=== PATIENT | male | born 1955 | race Caucasian/White ===

== ENCOUNTER 2020-08-04 10:08 | Inpatient (IN) | payer MEDICARE, SELFPAY ==
[2020-08-04] VITALS (9 sets, daily range): BP systolic 130–164; BP diastolic 75–116; PULSE 75–112; RESP 16–20; TEMP 36.4–37.7; O2SAT 91–97; BMI 60.8
--- NOTE | 2020-08-04 10:47 | XR_ITS ---
WS: [id number] XR shoulder RT min 2V* [id number] REASON FOR EXAM: pain FINDINGS: Mild joint space narrowing and marginal spurring of the acromioclavicular joint. Significant narrowing of the glenohumeral joint with humeral head osteophytes. No fracture or other focal osseous abnormality. No loose bodies or other soft tissue abnormality. XR/XR shoulder RT min 2V* [id number] IMPRESSION: Osteoarthritis in the right shoulder joint as above.
[2020-08-04] MEDS: morphine 4 mg/mL SDV 1 mL 8 MG IVP (11:23)
[2020-08-04 12:17] LABS: Alanine Aminotransferase 24 U/L (0-41); Albumin Level 3.4 g/dL (3.5-5.2); Alkaline Phosphatase 123 IU/L (40-130); Anion Gap 15.1 (5-19); Aspartate Amino Transferase 15 U/L (0-40); Blood Urea Nitrogen 20 mg/dL (8-23); Calcium 9.4 mg/dL (8.5-10.5); Carbon Dioxide 26 mmol/L (22-29); Chloride 99 mmol/L (98-107); Globulin 3.7 g/dL (1.3-4.6); Glomerular Filtration Rate 96.7 mL/min (90-130); Glucose 126 mg/dL (65-115); Osmolality Calculated 286 mOsm/kg (285-295); Potassium 4.1 mmol/L (3.5-5.1); Sodium 136 mmol/L (136-145); Total Bilirubin 0.6 mg/dL (0.15-1.2); Total Protein 7.1 g/dL (6.6-8.7)
--- NOTE | 2020-08-04 12:31 | ED_ITS ---
HPI - General Adult General: Chief complaint: General Medical Stated complaint: swelling and pain in arms and legs Time Seen by Provider: 08/04/20 10:31 History of Present Illness: HPI narrative: Patient is a 65-year-old male from home accompanied by seen for multiple complaints. Primary complaint is worsening pain in the right shoulder. He has a history of osteoarthritis of the right shoulder, but also complains of worsening pain with any motion over the last 3 days without injury, fall, or other acute incident. He states that he was started on medicine for gout roughly 1 month ago. The trouble is that he is dependent on using crutches and now that his shoulder is hurting so much, he is unable to use crutches, thus he is immobile at home. Prior to EMS arrival, he was unable to get out of the bed. He required multiple EMS providers to help him from his bed to the stretcher. He denies fever, trauma to the area, other recent illness. He also complains of bilateral hand swelling and difficulty picking things up bilaterally. Review of Systems General: Reports: 10 or more systems reviewed and unremarkable except in HPI and below PFSH ED PFSH: Medical History (Updated 08/04/20 @ 15:10 by Tremaine Ferrari MD) Arthritis Bilateral primary osteoarthritis of hip Diastolic CHF Gout HLD (hyperlipidemia) Hypertension Surgical History (Updated 08/04/20 @ 15:08 by Tremaine Ferrari MD) H/O vein stripping H/O ventral hernia repair Family History (Updated 08/04/20 @ 15:09 by Tremaine Ferrari MD) Father CAD (coronary artery disease) Mother Aspiration pneumonia Social History (Updated 07/28/20 @ 10:07 by Nicholas Jaimes LPN) Smoking and tobacco status: never smoked Alcohol intake: never Current occupational status: retired Physical Exam Const: COMMON NORMALS: no acute distress, patient oriented x3 and alert HENMT: COMMON NORMALS: normocephalic and atraumatic HEAD & SCALP: normocephalic and atraumatic Eye: COMMON NORMALS: Equal, round and reactive pupils present, EOMs intact bilaterally and no scleral icterus PUPIL: Yes Equal, round and reactive pupils present Resp: COMMON NORMALS: normal respiratory effort and No retractions Cardio: COMMON NORMALS: regular rhythm and No murmurs present (Cardio) RATE: tachycardic RHYTHM: regular rhythm GI: COMMON NORMALS: Normal to inspection, nondistended, normoactive bowel sounds present, Soft to palpation and non-tender INSPECTION: Yes central obesity PALPATION: Yes Soft to palpation Extremity: COMMON NORMALS: negative for full ROM NARRATIVE EXTREMITY EXAM: Patient has exquisite pain with active or passive flexion or abduction of the right shoulder. He can only abduct roughly 10 degrees before he has an increase in pain. He can only flex forward roughly 15 degrees before he has exquisite pain which he locates to the anterior shoulder concerning for rotator cuff sprain or partial tear. There is no laxity of the joint. He has bilateral hip pain with flexion which she states is chronic and unchanged. Neuro: COMMON NORMALS: patient oriented x3 SENSORIUM/ORIENTATION: Yes alert Skin: COMMON NORMALS: no rashes or lesions noted GENERAL SKIN EXAM: no rashes or lesions noted Course Vital Signs: Vital signs: Vital Signs Temperature 98.0 F 08/04/20 10:10 Pulse Rate 112 H 08/04/20 14:36 Respiratory Rate 20 H 08/04/20 10:10 Blood Pressure 157/85 08/04/20 14:36 Pulse Oximetry 93 08/04/20 14:36 MDM - General Adult MDM Narrative: Medical decision making narrative: Patient remained hemodynamically stable throughout ED course. Pain is well controlled with 2 doses of morphine. X-ray of the shoulder shows no acute process. I suspect he has chronic pain secondary to osteoarthritis with the addition of acute rotator cuff injury pain of the right shoulder. He was evaluated by OT who found him to require max assistance with all ADLs. His is wheelchair-bound and a hospice patient herself, thus I do not believe she would be able to care for the patient and his current status. I believe he would benefit from therapy and learning to use a walker rather than crutches. If his pain can be controlled, I believe he will be able to regain his independence with therapy. He will be admitted observation status to the hospitalist service while arrangements are made for the next up of his care. Lab Data: Labs: Lab Results 08/04/20 08/04/20 Range/Units 11:41 11:41 WBC 15.3 H (4.0-10.0) 10^3/ uL RBC 4.25 (4.1-5.3) 10^6/u L Hgb 11.9 (11.7-16.6) g/dL Hct 39.3 L (42.0-52.0) % MCV 92.5 (80-94) fL MCH 28.0 (28.0-34.0) pg MCHC 30.3 (30.0-36.0) g/dL RDW 14.3 (12.1-15.1) % Plt Count 405 H (130-400) 10^3/c mm MPV 11.0 H (7.4-10.4) fL Neut % (Auto) 82.3 % Lymph % (Auto) 7.1 % [place] % (Auto) 8.8 % Eos % (Auto) 0.7 % Baso % (Auto) 0.4 % Neut # (Auto) 12.58 H (1.8-7.7) 10^3/u L Lymph # (Auto) 1.1 (0.8-4.8) 10^3/u L [place] # (Auto) 1.3 H (0.2-0.9) 10^3/u L Eos # (Auto) 0.1 (0.0-0.8) 10^3/u L Baso # (Auto) 0.1 (0.0-0.1) 10^3/u L Nucleated RBC % (a uto) 0 % Nucleated RBCs # 0.0 /100WBC Sodium 136 (136-145) mmol/L Potassium 4.1 (3.5-5.1) mmol/L Chloride 99 (98-107) mmol/L Carbon Dioxide 26 (22-29) mmol/L Anion Gap 15.1 (5-19) BUN 20 (8-23) mg/dL Creatinine 0.8 (0.7-1.2) mg/dL GFR Calculation 96.7 (90-130) mL/min Glucose 126 H (65-115) mg/dL Calculated Osmolal ity 286 (285-295) mOsm/k g Calcium 9.4 (8.5-10.5) mg/dL Total Bilirubin 0.6 (0.15-1.2) mg/dL AST 15 (0-40) U/L ALT 24 (0-41) U/L Alkaline Phosphata se 123 (40-130) IU/L Total Protein 7.1 (6.6-8.7) g/dL Albumin 3.4 L (3.5-5.2) g/dL Globulin 3.7 (1.3-4.6) g/dL Discharge Plan Discharge Clinical Impression: Unable to ambulate, Intractable pain, Morbid obesity with BMI of 60.0-69.9, adult Condition: Stable Prescriptions: No Action simvastatin [Zocor] 10 mg tablet 10 mg PO DAILY@20 RF: 0 furosemide [Lasix] 40 mg tablet 40 mg PO DAILY@13 RF: 0 naproxen 500 mg tablet 500 mg PO BID@08,20 RF: 0 amlodipine 5 mg tablet 5 mg PO DAILY@08 RF: 0 hydrocodone-acetaminophen [Dinosaur] 5-325 mg tablet 1 tab PO Q6H PRN (Reason: Pain) RF: 0 cyclobenzaprine 10 mg tablet 10 mg PO DAILY@08 RF: 0 lisinopril-hydrochlorothiazide 20-12.5 mg Tablet 2 tab PO DAILY@08 RF: 0 potassium chloride 10 mEq Tablet Extended Release 10 meq PO DAILY@20 RF: 0 allopurinol 100 mg Tablet 200 mg PO DAILY@20 RF: 0 Coding Level of Care Code ED Mapping Specialist for Corrie Ordonez
[2020-08-04 12:35] LABS: Basophils # 0.1 10^3/uL (0.0-0.1); Basophils % 0.4 %; Eosinophils # 0.1 10^3/uL (0.0-0.8); Eosinophils % 0.7 %; Hematocrit 39.3 % (42.0-52.0); Hemoglobin 11.9 g/dL (11.7-16.6); Lymphocytes # 1.1 10^3/uL (0.8-4.8); Lymphocytes % 7.1 %; Mean Corpuscular HGB Conc 30.3 g/dL (30.0-36.0); Mean Corpuscular Volume 92.5 fL (80-94); Monocytes # 1.3 10^3/uL (0.2-0.9); Monocytes % 8.8 %; Neutrophils # 12.58 10^3/uL (1.8-7.7); Neutrophils % 82.3 %; Nucleated Red Blood Cells % 0 %; Platelet Count 405 10^3/cmm (130-400); Red Blood Count 4.25 10^6/uL (4.1-5.3); Red Cell Distribution Width 14.3 % (12.1-15.1); White Blood Count 15.3 10^3/uL (4.0-10.0)
[2020-08-04] MEDS: morphine 4 mg/mL SDV 1 mL IM (14:56)
--- NOTE | 2020-08-04 15:00 | PC.SOCIAL ---
Discussed at length with patient that his weight is a big concern regarding placement. If P is unwilling to accept then we will need to look at [facility]. He was updated this is only short term option since he does not have [facility]. He verbalized understanding. We discussed the ultimate goal for him is to lose weight. He was advised to eat 5 meals per day smaller portions and eliminate all sweets that are simple carbs and sugars. indicates we barely eat enough to keep us alive , this nurse responded that is not the case and more than likely we don't realize we are eating much bigger portions than required to fuel our body. Patient agreed that intake is an issue. He will need a job interviewer consult for weight loss management. This nurse advised to have a consult with Dr Koch about bariatric procedure in the future if he can follow healthier intake goals to start the weight loss and ensure he can be compliant with restrictions required for this type of surgery. Daina has sent referral to [facility]. We will follow up. Patient is aware if unable to find placment may be able to do HH but this is only a few times a week and not 24 hour care. HE understands and up until a few days ago he was able to get around with crutches until shoulder was injured. Likely he will need a Walker. He has some hip pain in which he is getting injections. Dr Ferrari and Dr Rosas the ED provider updated on care plan.
--- NOTE | 2020-08-04 15:01 | P.HP_ITS ---
Providers/Chief Complaint Chief Complaint: swelling and pain in arms and legs History of Present Illness Ceferino Duran is a 65 year old male with a past medical history of diastolic CHF, bilateral lower extremity edema, hypertension, hyperlipidemia, gout, morbid obesity, chronic venous insufficiency, bilateral hip osteoarthritis, who presents to [facility] due to complaints of difficulty ambulating, bilateral lower extremity edema, weakness, left shoulder pain. Patient tells me that normally on a good day, he is able to ambulate with crutches, he gets into his wheelchair, this is his main method of ambulation, he is weight 400 pounds for the last 2 to 3 years. Tells me that recently he has been developing increased weakness, bilateral lower extremity swelling, edema. He also tells me that he has significant left shoulder pain, normally ambulates with a crutch, now he cannot do that because of shoulder pain, he cannot stand up on his own, typically uses the crutches, has bilateral hip osteoarthritis, they are considering replacement, he gets injections as outpatient. Review of Systems Const: Denies: fever(s), chills, fatigue or malaise Eyes: Denies: change in vision or blurry vision ENMT: Denies: nasal congestion Card: Denies: chest pain or palpitations Resp: Denies: dyspnea, productive cough, non-productive cough or wheezing GI: Denies: abdominal pain, nausea, vomiting, hematemesis, diarrhea, constipation, hematochezia or melena : Denies: flank pain, difficulty urinating, dysuria or urinary frequency Musc: Reports: back pain and extremity swelling; Denies: neck pain Skin/Breast: Denies: rash Neuro: Denies: headache(s), dizziness or vertigo Psych: Denies: anxiety or depression Endo: Denies: polyuria or polydipsia Medications/Allergies Home Medications Medication Instructions Recorded Confirmed Last Taken Type amlodipine 5 mg tablet 5 mg PO DAILY@08 07/28/20 08/04/20 08/04/20 History cyclobenzaprine 10 mg tablet 10 mg PO DAILY@08 tab 07/28/20 08/04/20 08/04/20 History furosemide 40 mg tablet 40 mg PO DAILY@13 07/28/20 08/04/20 08/04/20 History hydrocodone 5 mg-acetaminophen 325 1 tab PO Q6H PRN 07/28/20 08/04/20 08/04/20 History mg tablet naproxen 500 mg tablet 500 mg PO BID@08,07/28/20 08/04/20 08/04/20 History simvastatin 10 mg tablet 10 mg PO DAILY@07/28/20 08/04/20 08/03/20 History allopurinol 200 mg PO DAILY@08/04/20 08/04/20 08/03/20 History lisinopril-hydrochlorothiazide 2 tab PO DAILY@08/04/20 08/04/20 08/04/20 History potassium chloride 10 meq PO DAILY@08/04/20 08/04/20 08/03/20 History Allergies Allergy/AdvReac Type Severity Reaction Status Date / Time cephalexin [From Keflex] Allergy Unknown Verified 08/04/20 10:15 paper tapre Allergy Unknown Uncoded 08/04/20 10:15 PFSH Acute PFSH: Medical History (Updated 08/04/20 @ 15:10 by Tremaine Ferrari MD) Arthritis Bilateral primary osteoarthritis of hip Diastolic CHF Gout HLD (hyperlipidemia) Hypertension Surgical History (Updated 08/04/20 @ 15:08 by Tremaine Ferrari MD) H/O vein stripping H/O ventral hernia repair Family History (Updated 08/04/20 @ 15:09 by Tremaine Ferrari MD) Father CAD (coronary artery disease) Mother Aspiration pneumonia Social History (Updated 07/28/20 @ 10:07 by Nicholas Jaimes LPN) Smoking and tobacco status: never smoked Alcohol intake: never Current occupational status: retired Vitals/I&O/Wt Last Vital Signs Temp 98.0 F 08/04/20 10:10 Pulse 112 H 08/04/20 14:36 Resp 20 H 08/04/20 10:10 BP 157/85 08/04/20 14:36 Pulse Ox 93 08/04/20 14:36 Weight last 48 hrs Weight 181.437 kg Physical Exam Narrative: EXAM NARRATIVE: Morbidly obese male Large pannus Const: COMMON NORMALS: no acute distress HENMT: COMMON NORMALS: normocephalic HEAD & SCALP: normocephalic Eye: COMMON NORMALS: Equal, round and reactive pupils present and EOMs intact bilaterally GENERAL EYE: appearance normal, both eyes and all related structures PUPIL: Yes Equal, round and reactive pupils present Neck/C-Spine: COMMON NORMALS: full ROM, no lymphadenopathy, no JVD and Thyroid normal THYROID: Thyroid normal Lymph: LYMPHATIC: no lymphadenopathy noted Resp: COMMON NORMALS: normal respiratory effort, No retractions, No use of accessory muscles and clear to auscultation bilaterally AUSCULTATION: clear to auscultation bilaterally Cardio: COMMON NORMALS: no JVD, regular rate, regular rhythm, S1 normal heart sound present, S2 normal heart sound present, No gallops present (Cardio), No clicks present (Cardio) and No murmurs present (Cardio) RATE: regular rate RHYTHM: regular rhythm HEART SOUNDS: S1 normal heart sound present and S2 normal heart sound present GI: COMMON NORMALS: Normal to inspection, nondistended, normoactive bowel sounds present, Soft to palpation, non-tender and No hepatosplenomegaly present PALPATION: Yes Soft to palpation and Yes No hepatosplenomegaly present Back/Pelvis: OTHER: Bilateral hips, pain with range of motion Extremity: COMMON NORMALS: normal to inspection and full ROM NARRATIVE EX TREMITY EXAM: 1+ pitting edema bilaterally Right shoulder, pain with range of motion, Neuro: COMMON NORMALS: patient oriented x3, CN's II-XII intact bilaterally, moves all extremities and no focal motor deficits Psych: COMMON NORMALS: mental status grossly normal, Normal thought process present and cooperative THOUGHT PROCESS: Normal thought process present Data : 08/04/20 11:41 08/04/20 11:41 A&P Assessment and plan (1) Hypertension: -Increase Norvasc to 10 mg daily -Continue lisinopril hydrochlorthiazide combination Status: Inactive (2) Diastolic CHF: -We will order BMP, cardiac echo -Increase Lasix to 40 twice daily Status: Acute (3) Gout: Continue allopurinol Status: Acute (4) Bilateral lower extremity edema: Lasix 40 twice daily Status: Acute (5) Morbid obesity with BMI of 60.0-69.9, adult: Needs to follow-up with bariatric clinic, needs to be motivated to lose weight Status: Acute (6) Difficulty in walking: PT OT Status: Acute (7) Bilateral primary osteoarthritis of hip: PT OT, pain control Status: Acute (8) HLD (hyperlipidemia): Continue simvastatin Status: Acute (9) Unable to ambulate: PT OT Status: Acute (10) Intractable pain: Status: Acute Attestations Medical Necessity Statement*: Patient requires hospitalization, outpatient with observation, for bilateral lower extremity edema secondary to diastolic CHF, unable to ambulate, intractable pain, right shoulder pain Coding Level of Care Code Acute Assembler Watch Train for Chg Fwd Diagnoses Hypertension I10 Diastolic CHF I50.30 Gout M10.9 Bilateral lower extremity edema R60.0 Morbid obesity with BMI of 60.0-69.9, adult E66.01; Z68.44 Difficulty in walking R26.2 Bilateral primary osteoarthritis of hip M16.0 HLD (hyperlipidemia) E78.5 Unable to ambulate R26.2 Intractable pain R52
--- NOTE | 2020-08-04 15:53 | DCPLANNER ---
Addendum entered by Daina Kulkarni 08/04/20 15:56: manager country had patient sign Patient Choice letter for which home health company that patient would like to use. Then for alf placement, patients first choice is [facility], second choice is [facility]. Patient will go to whichever facility will accept patient. Original Note: manager country was asked to work on alf placement for patient. Rebeca from the inpatient side of care coordination called [facility], at first that facility stated that they would consider patient. [facility] called Rebeca back and stated that they would not be able to accept patient at this time. Case manage called [facility], and was asked to fax records to the facility and patients information would be reviewed. manager country updated patient that [facility] stated that they would not be able to take patient, but information would be faxed to [facility] for review. Patient stated that would be ok.
--- NOTE | 2020-08-04 16:58 | PC.SOCIAL ---
Discussed customer support agent consult in front of provider in room.Verified by secure text message okay to enter order.
[2020-08-04 17:06] LABS: NT Pro B Type Natriuretic Pept 129 pg/mL (0-125)
[2020-08-04] MEDS: famotidine 20 mg Tablet PO (17:32)
[2020-08-04] MEDS: FUROsemide 40 mg Tablet PO (17:32)
[2020-08-04] MEDS: enoxaparin 40 mg/0.4 mL Syringe SUBCUT (17:33)
[2020-08-04] MEDS: potassium chloride ER 10 mEq Tablet PO (21:19)
[2020-08-04] MEDS: atorvastatin 40 mg Tablet 20 MG PO (21:19)
[2020-08-04] MEDS: allopurinol 100 mg Tablet 200 MG PO (21:19)
[2020-08-05] VITALS (8 sets, daily range): BP systolic 129–155; BP diastolic 70–84; PULSE 80–102; RESP 16–22; TEMP 36.8–37.7; O2SAT 93–96
[2020-08-05] MEDS: FUROsemide 40 mg Tablet PO ×2 (05:17→17:55)
[2020-08-05 05:42] LABS: Basophils # 0.1 10^3/uL (0.0-0.1); Basophils % 0.5 %; Eosinophils # 0.1 10^3/uL (0.0-0.8); Eosinophils % 0.6 %; Hematocrit 34.2 % (42.0-52.0); Hemoglobin 10.7 g/dL (11.7-16.6); Lymphocytes # 1.1 10^3/uL (0.8-4.8); Lymphocytes % 8.1 %; Mean Corpuscular HGB Conc 31.3 g/dL (30.0-36.0); Mean Corpuscular Hemoglobin 28.3 pg (28.0-34.0); Mean Corpuscular Volume 90.5 fL (80-94); Mean Platelet Volume 10.8 fL (7.4-10.4); Monocytes # 1.3 10^3/uL (0.2-0.9); Monocytes % 9.5 %; Neutrophils # 10.58 10^3/uL (1.8-7.7); Neutrophils % 80.4 %; Nucleated Red Blood Cells % 0 %; Platelet Count 365 10^3/cmm (130-400); Red Blood Count 3.78 10^6/uL (4.1-5.3); Red Cell Distribution Width 14.2 % (12.1-15.1); White Blood Count 13.2 10^3/uL (4.0-10.0)
[2020-08-05 06:08] LABS: Cholesterol 126 mg/dL (0-200); HDL Cholesterol 42 mg/dL (60-100); LDL Cholesterol Calculated 71 mg/dL (50-129); LDL HDL Ratio 1.69 RATIO (0.00-3.22); Triglycerides 63 mg/dL (0-150)
[2020-08-05 06:19] LABS: Alanine Aminotransferase 22 U/L (0-41); Alkaline Phosphatase 137 IU/L (40-130); Anion Gap 15.6 (5-19); Aspartate Amino Transferase 18 U/L (0-40); Blood Urea Nitrogen 22 mg/dL (8-23); Calcium 9.2 mg/dL (8.5-10.5); Carbon Dioxide 27 mmol/L (22-29); Chloride 99 mmol/L (98-107); Globulin 2.7 g/dL (1.3-4.6); Glomerular Filtration Rate 74.8 mL/min (90-130); Glucose 131 mg/dL (65-115); Magnesium 2.3 mg/dL (1.7-2.3); Osmolality Calculated 289 mOsm/kg (285-295); Phosphorus 4.3 mg/dL (2.5-4.5); Potassium 4.6 mmol/L (3.5-5.1); Sodium 137 mmol/L (136-145); Thyroid Stimulating Hormone 1.76 uIU/mL (0.27-4.20); Total Bilirubin 1.2 mg/dL (0.15-1.2); Total Protein 5.7 g/dL (6.6-8.7)
[2020-08-05] MEDS: HYDROcodone-acetaminophen 5-325 mg Tablet 1 TAB PO ×2 (08:54→15:08)
[2020-08-05] MEDS: cyclobenzaprine 10 mg Tablet PO (08:55)
[2020-08-05] MEDS: famotidine 20 mg Tablet PO ×2 (08:55→17:55)
[2020-08-05] MEDS: hydroCHLOROthiazide 25 mg Tablet PO (08:55)
[2020-08-05] MEDS: lisinopril 20 mg Tablet 40 MG PO (08:55)
[2020-08-05] MEDS: amlodipine 5 mg Tablet 10 MG PO (08:55)
--- NOTE | 2020-08-05 08:56 | DCPLANNER ---
data warehousing manager called [facility] to confirm that facility received patients information - case sealer spoke with Nicky, was told that patients information was received.
[2020-08-05 09:26] LABS: SARS Covid-2 Antigen Negative (Negative)
--- NOTE | 2020-08-05 09:48 | PC.CHAP ---
Pastoral Care Encounter/Spiritual Assessment Type of Contact [] Declined dry boss visit [] Patient/Family/Request visit [] Outpatient visit [] Follow-up visit [] Physician referral [] Code/Alert [] Routine visit [] Staff referral [] Actively dying [] Patient sleeping [] Family support [] [] Out of room [] Palliative care [] [x] Receiving care in room [] Pre-surgical visit [] Trauma [] Long length of stay [] ICU visit [] Other: Relational/Emotional Strength [] Patient feels connected with others/family/visitors/staff [] Distress [] Loneliness/isolation [] Abandonment Spirituality of Patient [] Person of Minal [] Attends Restorationism of their Minal [] Believes in Prayer [] Reads Bible or Methodist materials [] There are Spiritual issues to be addressed Fleet Dispatch Manager Interventions [] Prayer [] Active listening [] Non-anxious presence [] Spiritual/emotional support [] Crisis/trauma care [] Spiritual counseling [] Bereavement support [] Provided bereavement packet [] Provided Bible/devotional materials [] Provided toy/stuffed animal, coloring book to patient or family member [] Provided Communion [] Anointing/[place] [] Salvation [] Completed spiritual assessment [] Other: Impact on Illness or Injury [] Angry [] Fearful [] Anxious [] Often cries [] Exhaustion [] Unable to work [] Unable to attend caodaism [] Unable to walk/stand [] Unable to read [] Unable to drive [] Unable to eat/drink [] Unable to sleep [] Unable to be with family [] Patient intubated [] Other: Summary Time spent with patient
--- NOTE | 2020-08-05 09:48 | PC.CHAP ---
Pastoral Care Encounter/Spiritual Assessment Type of Contact [] Declined belt maker visit [] Patient/Family/Request visit [] Outpatient visit [] Follow-up visit [] Physician referral [] Code/Alert [] Routine visit [] Staff referral [] Actively dying [] Patient sleeping [] Family support [] [] Out of room [] Palliative care [] [x] Receiving care in room [] Pre-surgical visit [] Trauma [] Long length of stay [] ICU visit [] Other: Relational/Emotional Strength [] Patient feels connected with others/family/visitors/staff [] Distress [] Loneliness/isolation [] Abandonment Spirituality of Patient [] Person of Minal [] Attends Restorationism of their Minal [] Believes in Prayer [] Reads Bible or Congregational materials [] There are Spiritual issues to be addressed Residential Treatment Counselor Interventions [] Prayer [] Active listening [] Non-anxious presence [] Spiritual/emotional support [] Crisis/trauma care [] Spiritual counseling [] Bereavement support [] Provided bereavement packet [] Provided Bible/devotional materials [] Provided toy/stuffed animal, coloring book to patient or family member [] Provided Communion [] Anointing/[place] [] Salvation [] Completed spiritual assessment [] Other: Impact on Illness or Injury [] Angry [] Fearful [] Anxious [] Often cries [] Exhaustion [] Unable to work [] Unable to attend advent [] Unable to walk/stand [] Unable to read [] Unable to drive [] Unable to eat/drink [] Unable to sleep [] Unable to be with family [] Patient intubated [] Other: Summary Time spent with patient
--- NOTE | 2020-08-05 11:55 | P.PN_ITS ---
Subjective Subjective: Interval history: This morning patient was examined, he tells me that his swelling of his legs have improved, he is feeling a bit better, no fevers, chills, no chest pain Vitals/I&O/Wt Last Vital Signs Temp 98.6 F 08/05/20 08:00 Pulse 96 08/05/20 08:00 Resp 18 08/05/20 08:00 BP 143/80 08/05/20 08:00 Pulse Ox 94 08/05/20 08:00 08/04/20 08/05/20 08/05/20 22:59 06:59 14:59 Intake Total 120 / 120 Output Total 100 / 100 800 / 900 600 / 600 Balance -100 / -100 -800 / -900 -480 / -480 Weight last 48 hrs Weight 181.437 kg Physical Exam Narrative: EXAM NARRATIVE: Morbidly obese male Large pannus Const: COMMON NORMALS: no acute distress and patient oriented x3 HENMT: COMMON NORMALS: normocephalic HEAD & SCALP: normocephalic Neck/C-Spine: COMMON NORMALS: no JVD Resp: COMMON NORMALS: normal respiratory effort, No retractions, No use of accessory muscles and clear to auscultation bilaterally AUSCULTATION: clear to auscultation bilaterally Cardio: COMMON NORMALS: no JVD, regular rate, regular rhythm, S1 normal heart sound present and S2 normal heart sound present RATE: regular rate RHYTHM: regular rhythm HEART SOUNDS: S1 normal heart sound present and S2 normal heart sound present GI: COMMON NORMALS: Normal to inspection, nondistended, normoactive bowel sounds present, Soft to palpation, non-tender, No hepatosplenomegaly present, no masses and no bruits PALPATION: Yes Soft to palpation and Yes No hepatosplenomegaly present Extremity: COMMON NORMALS: capillary refill normal, no clubbing, cyanosis or edema and no calf tenderness NARRATIVE EXTREMITY EXAM: Minimal pitting edema Neuro: COMMON NORMALS: patient oriented x3 Psych: COMMON NORMALS: mental status grossly normal Data : 08/05/20 04:50 08/05/20 04:50 A&P Assessment and plan (1) Hypertension: -Increase Norvasc to 10 mg daily -Continue lisinopril hydrochlorthiazide combination Status: Inactive (2) Diastolic CHF: -Cardiac echo pending -Increase Lasix to 40 twice daily Status: Acute (3) Gout: Continue allopurinol Status: Acute (4) Bilateral lower extremity edema: Lasix 40 twice daily Status: Acute (5) Morbid obesity with BMI of 60.0-69.9, adult: Needs to follow-up with bariatric clinic, needs to be motivated to lose weight Status: Acute (6) Difficulty in walking: PT OT Status: Acute (7) Bilateral primary osteoarthritis of hip: PT OT, pain control Status: Acute (8) HLD (hyperlipidemia): Continue simvastatin Status: Acute (9) Unable to ambulate: PT OT Status: Acute (10) Intractable pain: Status: Acute Additional A&P Information Plan for today, continue diuresis, monitor blood pressures, monitor urine output, encourage ambulation Attestations 2 Medical Necessity Statement*: Patient requires hospitalization for bilateral lower extremity edema, pain with range of motion of bilateral hips, right shoulder pain, intractable pain, requiring detention placement Coding Level of Care Code Acute Glass Vial Bending Conveyor Feeder for Corrie Fwd Diagnoses Hypertension I10 Diastolic CHF I50.30 Gout M10.9 Bilateral lower extremity edema R60.0 Morbid obesity with BMI of 60.0-69.9, adult E66.01; Z68.44 Difficulty in walking R26.2 Bilateral primary osteoarthritis of hip M16.0 HLD (hyperlipidemia) E78.5 Unable to ambulate R26.2 Intractable pain R52
--- NOTE | 2020-08-05 16:35 | USCV_ITS ---
Ceferino Rodarte Age: 65 Gender: M : 1955 Exam Date: 08/05/2020 06:04 Ordering Phys: Tremaine Ferrari MD Technologist: Melania Romano [place] [facility] [place]: BILATERAL LE SWELLING BP: 154 / 84 HR: 99 Rhythm: Sinus Technical Quality: Very technically difficult study MEASUREMENTS (Male / Female) Normal Values 2D ECHO LV Diastolic Diameter PLAX 3.0 cm 4.2 - 5.9 / 3.9 - 5.3 cm LV Systolic Diameter PLAX 2.4 cm LV Chamber Size 3.3 cm IVS Diastolic Thickness 1.3 cm 0.6 - 1.0 / 0.6 - 0.9 cm IVS Systolic Thickness 1.5 cm LVPW Diastolic Thickness 1.9 cm 0.6 - 1.0 / 0.6 - 0.9 cm LVPW Systolic Thickness 1.8 cm RV Chamber Size 2.6 cm LVOT Diameter 2.1 cm LV Ejection Fraction 2D Teich 43.8 % LA Diameter 4.2 cm LA Width 3.5 cm LA Height 4.5 cm RA Width 3.5 cm RA Height 3.8 cm Aorta at Sinotubular Diameter 3.0 cm M-MODE LV Diastolic Diameter MM 5.0 cm 4.2 - 5.9 / 3.9 - 5.3 cm LV Systolic Diameter MM 3.6 cm LV Ejection Fraction MM Teich 53.1 % IVS Diastolic Thickness MM 1.4 cm 0.6 - 1.0 / 0.6 - 0.9 cm IVS Systolic Thickness MM 2.1 cm LVPW Diastolic Thickness MM 1.6 cm 0.6 - 1.0 / 0.6 - 0.9 cm LVPW Systolic Thickness MM 2.2 cm RV Diastolic Diameter MM 2.0 cm Aortic Annulus Diameter 3.9 cm LA Ao Ratio MM 1.2 MV E Point Septal Separation 0.5 cm DOPPLER AV Peak Velocity 159.0 cm/s LVOT Peak Velocity 97.0 cm/s AV Area Cont Eq vti 2.8 cm squared AV Area Cont Eq pk 2.1 cm squared MV Area PHT 9.6 cm squared Mitral E to A Ratio 0.9 MV E' Velocity 41.5 cm/s Mitral E to MV E' Ratio 9.7 Mitral E to LV E' Lateral Ratio 10.6 Mitral E to LV E' Septal Ratio 9.0 TR Peak Velocity 183.1 cm/s TR Peak Gradient 13.4 mmHg TR Mean Velocity 129.9 cm/s TR Mean Gradient 7.6 mmHg TR Velocity Time Integral 37.2 cm TV Peak E Velocity 91.0 cm/s Right Atrial Pressure 8.0 mmHg Pulmonary Artery Systolic Pressu 21.4 mmHg PV Peak Velocity 80.0 cm/s RV Acceleration Time 0.2 s RV Ejection Time 0.3 s RV AcT/ET 0.5 FINDINGS Left Ventricle Normal left ventricular cavity size. Probably normal left ventricular systolic function. Left ventricular ejection fraction is estimated at 55%. Although no diagnostic regional wall motion abnormality could not verified, this possibility cannot be completely excluded based on the study. Indeterminate diastolic function. Right Ventricle Normal right ventricular size and systolic function, RVSP 21.4 mmHg. Right Atrium Right atrium not well visualized. Left Atrium Left atrium not well visualized. Mitral Valve Thickened mitral valve. No mitral valve stenosis. Aortic Valve Structurally normal trileaflet aortic valve. No aortic valve stenosis. No aortic valve regurgitation. Tricuspid Valve Tricuspid valve not well visualized. Pulmonic Valve Pulmonic valve not well visualized. No pulmonary valve stenosis. No significant pulmonary valve regurgitation. Pericardium No pericardial effusion. Aorta Normal-sized aortic root. CONCLUSIONS 1. This is a technically very difficult study inspite of using ultrasound enhancing agent (Optison). 2. Normal left ventricular cavity size. Probably normal left ventricular systolic function. Left ventricular ejection fraction is estimated at 55%. Although no diagnostic regional wall motion abnormality could not verified, this possibility cannot be completely excluded based on the study. 3. Normal right ventricular size and systolic function. 4. No significant valvular abnormality based on this study. 5. No prior similar studies to compare. Nathalia Rodriguez MD (Electronically Signed) Final Date: 06 August 2020 15:51 S
[2020-08-05] MEDS: enoxaparin 40 mg/0.4 mL Syringe SUBCUT (17:55)
--- NOTE | 2020-08-05 18:46 | PC.NURSE ---
Report to Ema GARZA at this time.
[2020-08-05] MEDS: allopurinol 100 mg Tablet 200 MG PO (20:30)
[2020-08-05] MEDS: atorvastatin 40 mg Tablet 20 MG PO (20:31)
[2020-08-05] MEDS: potassium chloride ER 10 mEq Tablet PO (20:31)
[2020-08-06] VITALS (8 sets, daily range): BP systolic 108–153; BP diastolic 71–82; PULSE 84–105; RESP 16–22; TEMP 36.6–37.3; O2SAT 92–94
[2020-08-06] MEDS: FUROsemide 40 mg Tablet PO ×2 (04:38→17:55)
[2020-08-06 05:37] LABS: Basophils # 0.1 10^3/uL (0.0-0.1); Basophils % 0.4 %; Eosinophils # 0.1 10^3/uL (0.0-0.8); Eosinophils % 0.7 %; Hematocrit 34.3 % (42.0-52.0); Hemoglobin 10.7 g/dL (11.7-16.6); Lymphocytes % 7.7 %; Mean Corpuscular HGB Conc 31.2 g/dL (30.0-36.0); Mean Corpuscular Hemoglobin 27.9 pg (28.0-34.0); Mean Corpuscular Volume 89.3 fL (80-94); Mean Platelet Volume 10.4 fL (7.4-10.4); Monocytes # 1.3 10^3/uL (0.2-0.9); Neutrophils # 10.28 10^3/uL (1.8-7.7); Nucleated Red Blood Cells % 0 %; Platelet Count 378 10^3/cmm (130-400); Red Blood Count 3.84 10^6/uL (4.1-5.3); White Blood Count 12.9 10^3/uL (4.0-10.0)
[2020-08-06 06:07] LABS: Alanine Aminotransferase 35 U/L (0-41); Alkaline Phosphatase 156 IU/L (40-130); Anion Gap 16.6 (5-19); Aspartate Amino Transferase 30 U/L (0-40); Blood Urea Nitrogen 23 mg/dL (8-23); Calcium 9.3 mg/dL (8.5-10.5); Carbon Dioxide 27 mmol/L (22-29); Chloride 97 mmol/L (98-107); Globulin 3.7 g/dL (1.3-4.6); Glomerular Filtration Rate 84.4 mL/min (90-130); Glucose 126 mg/dL (65-115); Osmolality Calculated 289 mOsm/kg (285-295); Phosphorus 4.3 mg/dL (2.5-4.5); Potassium 3.6 mmol/L (3.5-5.1); Sodium 137 mmol/L (136-145); Total Bilirubin 1.2 mg/dL (0.15-1.2); Total Protein 6.7 g/dL (6.6-8.7)
[2020-08-06] MEDS: lisinopril 20 mg Tablet 40 MG PO (08:46)
[2020-08-06] MEDS: cyclobenzaprine 10 mg Tablet PO (08:46)
[2020-08-06] MEDS: amlodipine 5 mg Tablet 10 MG PO (08:46)
[2020-08-06] MEDS: hydroCHLOROthiazide 25 mg Tablet PO (08:46)
[2020-08-06] MEDS: famotidine 20 mg Tablet PO ×2 (08:46→17:55)
[2020-08-06] MEDS: HYDROcodone-acetaminophen 5-325 mg Tablet 1 TAB PO ×3 (08:54→20:23)
--- NOTE | 2020-08-06 09:12 | XRR_ITS ---
PROCEDURE INFORMATION: Exam: XR Chest, 1 View Exam date and time: 08/06/2020 10:07 AM Age: 65 years old Clinical indication: Shortness of breath; Additional info: SOB TECHNIQUE: Imaging protocol: XR of the chest Views: 1 view. COMPARISON: No relevant prior studies available. FINDINGS: Lungs: There is hazy prominence of the interstitium in the right lung. This could be artifactual but the possibility of an interstitial pneumonitis should be considered. Pleural space: Unremarkable. No pleural effusion. No pneumothorax. Heart/Mediastinum: The cardiac silhouette may be normal considering the poor inspiration and AP rotated chest. Bones/joints: Unremarkable. XR/XR chest 1V portable [id number] IMPRESSION: 1. Suboptimal study due to poor inspiration and rotation. 2. Hazy prominence of the right lung interstitium. This may be due to a mild interstitial pneumonitis possibly viral in nature.
[2020-08-06 11:26] LABS: Procalcitonin 0.48 ng/mL (0-0.5)
[2020-08-06] MEDS: cefTRIAXone 1,000 MG in sodium chloride 0.9% (plus) 50 ML 100 MG IV (11:41)
[2020-08-06 11:58] LABS: C Reactive Protein 421.9 mg/L (0.0-4.9)
--- NOTE | 2020-08-06 12:58 | PC.CHAP ---
Pastoral Care Encounter/Spiritual Assessment Type of Contact [] Declined head of art visit [] Patient/Family/Request visit [] Outpatient visit [] Follow-up visit [] Physician referral [] Code/Alert [] Routine visit [] Staff referral [] Actively dying [X] Patient sleeping [] Family support [] [] Out of room [] Palliative care [] [] Receiving care in room [] Pre-surgical visit [] Trauma [] Long length of stay [] ICU visit [] Other: Relational/Emotional Strength [] Patient feels connected with others/family/visitors/staff [] Distress [] Loneliness/isolation [] Abandonment Spirituality of Patient [] Person of Minal [] Attends Yarsani of their Minal [] Believes in Prayer [] Reads Bible or Catholic materials [] There are Spiritual issues to be addressed Consumer Credit Counselor Interventions [] Prayer [] Active listening [] Non-anxious presence [] Spiritual/emotional support [] Crisis/trauma care [] Spiritual counseling [] Bereavement support [] Provided bereavement packet [] Provided Bible/devotional materials [] Provided toy/stuffed animal, coloring book to patient or family member [] Provided Communion [] Anointing/[place] [] Salvation [] Completed spiritual assessment [] Other: Impact on Illness or Injury [] Angry [] Fearful [] Anxious [] Often cries [] Exhaustion [] Unable to work [] Unable to attend anglican [] Unable to walk/stand [] Unable to read [] Unable to drive [] Unable to eat/drink [] Unable to sleep [] Unable to be with family [] Patient intubated [] Other: Summary Time spent with patient
[2020-08-06] MEDS: azithromycin 500 MG in sodium chloride 0.9% 250 ML 250 MG IV (13:06)
--- NOTE | 2020-08-06 14:22 | PM.PN ---
Subjective Subjective: Interval history: Patient had some fevers overnight, no cough, Flowers catheter was placed overnight, no nausea, no vomiting, no abdominal pain, no chest pain, patient was able to sit up to the side of the bed with physical therapy for roughly 15 minutes, became quite short of breath after Vitals/I&O/Wt Last Vital Signs Temp 98.2 F 08/06/20 12:00 Pulse 100 08/06/20 12:00 Resp 20 H 08/06/20 12:00 BP 153/77 08/06/20 12:00 Pulse Ox 93 08/06/20 12:00 08/05/20 08/06/20 08/06/20 22:59 06:59 14:59 Intake Total 200 / 440 240 / 240 Output Total 700 / 1300 1000 / 2300 700 / 700 Balance -500 / -860 -1000 / -1860 -460 / -460 Physical Exam Narrative: EXAM NARRATIVE: Morbidly obese male Large pannus Const: COMMON NORMALS: no acute distress and patient oriented x3 HENMT: COMMON NORMALS: normocephalic HEAD & SCALP: normocephalic Neck/C-Spine: COMMON NORMALS: no JVD Resp: COMMON NORMALS: normal respiratory effort, No retractions, No use of accessory muscles and clear to auscultation bilaterally AUSCULTATION: clear to auscultation bilaterally Cardio: COMMON NORMALS: no JVD, regular rate, regular rhythm, S1 normal heart sound present and S2 normal heart sound present RATE: regular rate RHYTHM: regular rhythm HEART SOUNDS: S1 normal heart sound present and S2 normal heart sound present GI: COMMON NORMALS: Normal to inspection, nondistended, normoactive bowel sounds present, Soft to palpation, non-tender, No hepatosplenomegaly present, no masses and no bruits PALPATION: Yes Soft to palpation and Yes No hepatosplenomegaly present Extremity: COMMON NORMALS: capillary refill normal, no clubbing, cyanosis or edema, no calf tenderness and no pedal edema NARRATIVE EXTREMITY EXAM: Minimal pitting edema Neuro: COMMON NORMALS: patient oriented x3 Psych: COMMON NORMALS: mental status grossly normal Urinary Catheter Management^: Flowers: Cath Placed During This Visit: yes Reason for Continuing Indwelling Catheter: Acute Urinary Retention or Obstruction Urinary Catheter Date of Insertion: 08/05/20 Urinary Catheter Time of Insertion: 15:00 Data : 08/06/20 04:49 08/06/20 04:49 A&P Assessment and plan (1) RLL pneumonia: -Likely secondary to immobility -With fevers overnight -Start Rocephin and azithromycin -Follow urine cultures -Needs to get up out of bed, into bariatric chair -Aggressive pulmonary toilet, incentive spirometer, flutter valve Status: Acute (2) Hypertension: -Increase Norvasc to 10 mg daily -Continue lisinopril hydrochlorthiazide combination Status: Inactive (3) Diastolic CHF: -Cardiac echocardiogram pending -Increase Lasix to 40 twice daily Status: Acute (4) Gout: Continue allopurinol Status: Acute (5) Bilateral lower extremity edema: Lasix 40 twice daily Status: Acute (6) Morbid obesity with BMI of 60.0-69.9, adult: Needs to follow-up with bariatric clinic, needs to be motivated to lose weight Status: Acute (7) Difficulty in walking: PT OT Status: Acute (8) Bilateral primary osteoarthritis of hip: PT OT, pain control Status: Acute (9) HLD (hyperlipidemia): Continue simvastatin Status: Acute (10) Unable to ambulate: PT OT Status: Acute (11) Intractable pain: Status: Acute Additional A&P Information Plan for today, start antibiotics, encourage up out of bed, aggressive pulmonary toilet, bariatric chair Attestations Medical Necessity Statement*: Patient requires hospitalization for right lower lobe pneumonia, diastolic CHF, generalized weakness, immobility Coding Level of Care Code Acute Oil Dispenser for [facility] Fwd Diagnoses RLL pneumonia J18.9 Hypertension I10 Diastolic CHF I50.30 Gout M10.9 Bilateral lower extremity edema R60.0 Morbid obesity with BMI of 60.0-69.9, adult E66.01; Z68.44 Difficulty in walking R26.2 Bilateral primary osteoarthritis of hip M16.0 HLD (hyperlipidemia) E78.5 Unable to ambulate R26.2 Intractable pain R52
[2020-08-06 14:29] LABS: Bilirubin Urine 1+ (Negative); Blood Urine 3+ (Negative); Glucose Urine UA Norm (Normal); Ketones Urine Negative (Negative); Leukocyte Esterase Urine 1+ (Negative); Nitrate Urine Negative (Negative); Protein Urine Neg (Negative); Urine Appearance Cloudy (CLEAR); Urine Color Dark Yellow (Yellow); Urobilinogen Urine 4 mg/dL (Negative); pH Urine 5 (5-7)
[2020-08-06 14:30] LABS: Add Urine Microscopic? YES
[2020-08-06 14:31] LABS: RBC Urine 15-25 /hpf (0-2)
[2020-08-06 14:32] LABS: Bacteria Urine 2+ /hpf; Mucus Urine 1+ /hpf; Squamous Epithelial Cell Urine RARE /hpf (0-5); WBC Urine 15-25 /hpf (0-5)
[2020-08-06 14:33] LABS: Add Urine Culture? Yes; Hyaline Casts Urine 15-25 /lpf
[2020-08-06] MEDS: enoxaparin 40 mg/0.4 mL Syringe SUBCUT (17:54)
[2020-08-06] MEDS: potassium chloride ER 10 mEq Tablet PO (20:21)
[2020-08-06] MEDS: atorvastatin 40 mg Tablet 20 MG PO (20:21)
[2020-08-06] MEDS: allopurinol 100 mg Tablet 200 MG PO (20:21)
[2020-08-07] VITALS (8 sets, daily range): BP systolic 121–150; BP diastolic 78–87; PULSE 92–105; RESP 16–22; TEMP 36.1–37; O2SAT 92–99
[2020-08-07] MEDS: FUROsemide 40 mg Tablet PO ×2 (04:19→17:15)
[2020-08-07] MEDS: HYDROcodone-acetaminophen 5-325 mg Tablet 1 TAB PO ×3 (04:22→17:15)
--- NOTE | 2020-08-07 05:09 | PC.NURSE ---
SHIFT SUMMARY Has rested well. c/o bilat arm and shoulder pain and has been medicated with po Hydrocodone X2. Had 900ml urine output from Flowers. CPAP on during sleep. Says is hoping to be able to do more with therapy today
[2020-08-07 05:34] LABS: Basophils # 0.1 10^3/uL (0.0-0.1); Basophils % 0.4 %; Eosinophils # 0.1 10^3/uL (0.0-0.8); Eosinophils % 0.8 %; Hematocrit 36.1 % (42.0-52.0); Hemoglobin 11.2 g/dL (11.7-16.6); Lymphocytes # 1.1 10^3/uL (0.8-4.8); Lymphocytes % 7.6 %; Mean Corpuscular Hemoglobin 27.9 pg (28.0-34.0); Mean Corpuscular Volume 89.8 fL (80-94); Mean Platelet Volume 10.4 fL (7.4-10.4); Monocytes # 1.2 10^3/uL (0.2-0.9); Monocytes % 8.6 %; Neutrophils # 11.42 10^3/uL (1.8-7.7); Neutrophils % 80.8 %; Nucleated Red Blood Cells % 0 %; Platelet Count 418 10^3/cmm (130-400); Red Blood Count 4.02 10^6/uL (4.1-5.3); White Blood Count 14.1 10^3/uL (4.0-10.0)
[2020-08-07 06:03] LABS: Alanine Aminotransferase 48 U/L (0-41); Albumin Level 2.8 g/dL (3.5-5.2); Alkaline Phosphatase 166 IU/L (40-130); Anion Gap 18.6 (5-19); Aspartate Amino Transferase 34 U/L (0-40); Blood Urea Nitrogen 32 mg/dL (8-23); Calcium 9.5 mg/dL (8.5-10.5); Carbon Dioxide 26 mmol/L (22-29); Chloride 95 mmol/L (98-107); Globulin 4.1 g/dL (1.3-4.6); Glomerular Filtration Rate 84.4 mL/min (90-130); Glucose 125 mg/dL (65-115); Magnesium 2.1 mg/dL (1.7-2.3); Osmolality Calculated 290 mOsm/kg (285-295); Phosphorus 4.4 mg/dL (2.5-4.5); Potassium 3.6 mmol/L (3.5-5.1); Sodium 136 mmol/L (136-145); Total Bilirubin 0.9 mg/dL (0.15-1.2); Total Protein 6.9 g/dL (6.6-8.7)
[2020-08-07] MEDS: lisinopril 20 mg Tablet 40 MG PO (08:30)
[2020-08-07] MEDS: hydroCHLOROthiazide 25 mg Tablet PO (08:30)
[2020-08-07] MEDS: cyclobenzaprine 10 mg Tablet PO (08:30)
[2020-08-07] MEDS: famotidine 20 mg Tablet PO ×2 (08:30→17:15)
[2020-08-07] MEDS: amlodipine 5 mg Tablet 10 MG PO (08:30)
--- NOTE | 2020-08-07 09:15 | PC.SOCIAL ---
IMM Page 2 of IMM explained to patient. Initialed, dated, and timed and placed in chart. Copy provided to patient.
--- NOTE | 2020-08-07 09:39 | USR_ITS ---
PROCEDURE INFORMATION: Exam: US Duplex Lower Extremity Veins, Bilateral Exam date and time: 08/07/2020 12:44 PM Age: 65 years old Clinical indication: Edema, localized; Lower extremity, bilateral; Additional info: Bilateral calf pain TECHNIQUE: Imaging protocol: Real-time duplex ultrasound of the extremities with 2-D prater scale, color Doppler flow and spectral waveform analysis with image documentation. Complete exam focused on the bilateral lower extremity veins. COMPARISON: No relevant prior studies available. FINDINGS: Right deep veins: Unremarkable. The common femoral, femoral, proximal profunda femoral and popliteal veins are patent without thrombus. Normal Doppler waveforms. Normal compressibility and/or augmentation response. Right superficial veins: Saphenofemoral junction is patent without thrombus. Left deep veins: Unremarkable. The femoral and popliteal veins are patent without thrombus. Normal Doppler waveforms. Normal compressibility and/or augmentation response. The common femoral, proximal femoral vein are not assessed. Left superficial veins: Saphenofemoral junction is patent without thrombus. Soft tissues: Unremarkable. US/CV venous duplex [facility] [id number] IMPRESSION: No evidence of deep vein thrombosis.
[2020-08-07] MEDS: gabapentin 300 mg Capsule PO ×2 (10:34→17:16)
[2020-08-07] MEDS: cefTRIAXone 1,000 MG in sodium chloride 0.9% (plus) 50 ML 100 MG IV (11:37)
--- NOTE | 2020-08-07 12:03 | PM.PN ---
Subjective Subjective: Interval history: This morning patient is complaining of some diffuse musculoskeletal pain, joint pains, has pain with ambulation, Vitals/I&O/Wt Last Vital Signs Temp 97.5 F L 08/07/20 08:00 Pulse 98 08/07/20 08:36 Resp 17 08/07/20 08:36 BP 135/80 08/07/20 08:00 Pulse Ox 99 08/07/20 08:36 08/06/20 08/07/20 08/07/20 22:59 06:59 14:59 Intake Total 340 / 1000 120 / 1120 360 / 360 Output Total 1000 / 2150 Balance 340 / -150 -880 / -1030 360 / 360 Physical Exam Narrative: EXAM NARRATIVE: Morbidly obese male Large pannus Const: COMMON NORMALS: no acute distress and patient oriented x3 HENMT: COMMON NORMALS: normocephalic HEAD & SCALP: normocephalic Neck/C-Spine: COMMON NORMALS: no JVD Resp: COMMON NORMALS: normal respiratory effort, No retractions, No use of accessory muscles and clear to auscultation bilaterally AUSCULTATION: clear to auscultation bilaterally Cardio: COMMON NORMALS: no JVD, regular rate, regular rhythm, S1 normal heart sound present and S2 normal heart sound present RATE: regular rate RHYTHM: regular rhythm HEART SOUNDS: S1 normal heart sound present and S2 normal heart sound present GI: COMMON NORMALS: Normal to inspection, nondistended, normoactive bowel sounds present, Soft to palpation, non-tender, No hepatosplenomegaly present, no masses and no bruits PALPATION: Yes Soft to palpation and Yes No hepatosplenomegaly present Extremity: COMMON NORMALS: capillary refill normal, no clubbing, cyanosis or edema, no calf tenderness and no pedal edema NARRATIVE EXTREMITY EXAM: Minimal pitting edema Neuro: COMMON NORMALS: patient oriented x3 Psych: COMMON NORMALS: mental status grossly normal Urinary Catheter Management^: Flowers: Cath Placed During This Visit: yes Reason for Continuing Indwelling Catheter: Accurate Measurement of Urinary Output in Critically Ill Patients Urinary Catheter Date of Insertion: 08/05/20 Urinary Catheter Time of Insertion: 15:00 Data : 08/07/20 04:15 08/07/20 04:15 A&P Assessment and plan (1) RLL pneumonia: -Likely secondary to immobility -With fevers overnight -On Rocephin and azithromycin -Follow urine cultures -Needs to get up out of bed, into bariatric chair -Aggressive pulmonary toilet, incentive spirometer, flutter valve Status: Acute (2) Hypertension: -Increase Norvasc to 10 mg daily -Continue lisinopril hydrochlorthiazide combination Status: Inactive (3) Diastolic CHF: -Cardiac echocardiogram pending -Increase Lasix to 40 twice daily Status: Acute (4) Gout: Continue allopurinol Status: Acute (5) Bilateral lower extremity edema: Lasix 40 twice daily Status: Acute (6) Morbid obesity with BMI of 60.0-69.9, adult: Needs to follow-up with bariatric clinic, needs to be motivated to lose weight Status: Acute (7) Difficulty in walking: PT OT Status: Acute (8) Bilateral primary osteoarthritis of hip: PT OT, pain control Status: Acute (9) HLD (hyperlipidemia): Continue simvastatin Status: Acute (10) Unable to ambulate: PT OT Status: Acute (11) Intractable pain: -Diffuse musculoskeletal pain, likely a component of fibromyalgia -Start gabapentin 300 twice daily -Has some calf pain bilaterally, given immobility will order ultrasound to rule out DVT Status: Acute Additional A&P Information Plan for today, start antibiotics, encourage up out of bed, aggressive pulmonary toilet, bariatric chair, order bilateral lower extremity ultrasound to rule out DVTs, start gabapentin for fibromyalgia, awaiting residential placement Attestations Medical Necessity Statement*: Patient requires hospitalization for pneumonia, diffuse musculoskeletal pain, intractable pain, CHF, awaiting residential placement Coding Level of Care Code 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
[2020-08-07] MEDS: azithromycin 500 MG in sodium chloride 0.9% 250 ML 250 MG IV (12:14)
[2020-08-07] MEDS: enoxaparin 40 mg/0.4 mL Syringe SUBCUT (17:16)
[2020-08-07] MEDS: potassium chloride ER 10 mEq Tablet PO (21:30)
[2020-08-07] MEDS: atorvastatin 40 mg Tablet 20 MG PO (21:30)
[2020-08-07] MEDS: allopurinol 100 mg Tablet 200 MG PO (23:27)
[2020-08-08] VITALS (10 sets, daily range): BP systolic 97–141; BP diastolic 66–83; PULSE 91–103; RESP 16–19; TEMP 36.3–36.9; O2SAT 92–95
[2020-08-08 05:35] LABS: Basophils # 0.1 10^3/uL (0.0-0.1); Basophils % 0.5 %; Eosinophils # 0.1 10^3/uL (0.0-0.8); Eosinophils % 0.8 %; Hematocrit 36.6 % (42.0-52.0); Hemoglobin 11.4 g/dL (11.7-16.6); Lymphocytes # 1.1 10^3/uL (0.8-4.8); Mean Corpuscular HGB Conc 31.1 g/dL (30.0-36.0); Mean Corpuscular Hemoglobin 27.7 pg (28.0-34.0); Mean Corpuscular Volume 89.1 fL (80-94); Mean Platelet Volume 10.5 fL (7.4-10.4); Monocytes # 1.6 10^3/uL (0.2-0.9); Monocytes % 10.3 %; Neutrophils # 12.63 10^3/uL (1.8-7.7); Neutrophils % 79.3 %; Nucleated Red Blood Cells % 0 %; Platelet Count 463 10^3/cmm (130-400); Red Blood Count 4.11 10^6/uL (4.1-5.3); Red Cell Distribution Width 14.2 % (12.1-15.1); White Blood Count 15.9 10^3/uL (4.0-10.0)
[2020-08-08] MEDS: FUROsemide 40 mg Tablet PO ×2 (05:55→17:21)
[2020-08-08 05:56] LABS: Alanine Aminotransferase 92 U/L (0-41); Albumin Level 2.9 g/dL (3.5-5.2); Alkaline Phosphatase 214 IU/L (40-130); Anion Gap 19.1 (5-19); Aspartate Amino Transferase 99 U/L (0-40); Blood Urea Nitrogen 40 mg/dL (8-23); Calcium 9.9 mg/dL (8.5-10.5); Carbon Dioxide 29 mmol/L (22-29); Chloride 98 mmol/L (98-107); Globulin 4.3 g/dL (1.3-4.6); Glomerular Filtration Rate 60.6 mL/min (90-130); Glucose 147 mg/dL (65-115); Magnesium 2.5 mg/dL (1.7-2.3); Osmolality Calculated 306 mOsm/kg (285-295); Phosphorus 5.2 mg/dL (2.5-4.5); Potassium 4.1 mmol/L (3.5-5.1); Sodium 142 mmol/L (136-145); Total Bilirubin 0.8 mg/dL (0.15-1.2); Total Protein 7.2 g/dL (6.6-8.7)
[2020-08-08] MEDS: cyclobenzaprine 10 mg Tablet PO (08:35)
[2020-08-08] MEDS: amlodipine 5 mg Tablet 10 MG PO (08:35)
[2020-08-08] MEDS: famotidine 20 mg Tablet PO ×2 (08:35→17:21)
[2020-08-08] MEDS: lisinopril 20 mg Tablet 40 MG PO (08:35)
[2020-08-08] MEDS: gabapentin 300 mg Capsule PO ×2 (08:35→17:22)
[2020-08-08] MEDS: hydroCHLOROthiazide 25 mg Tablet PO (08:35)
[2020-08-08] MEDS: HYDROcodone-acetaminophen 5-325 mg Tablet 1 TAB PO ×2 (08:36→17:21)
[2020-08-08] MEDS: cefTRIAXone 1,000 MG in sodium chloride 0.9% (plus) 50 ML 100 MG IV (11:39)
[2020-08-08] MEDS: azithromycin 500 MG in sodium chloride 0.9% 250 ML 250 MG IV (12:14)
--- NOTE | 2020-08-08 13:37 | PM.PN ---
Subjective Subjective: Interval history: Complains of generalized weakness today, was unable to participate with PT as said he felt too weak to stand up on the side of the bed. No further fever. Hemodynamically stable. Currently appears to be euvolemic. White blood cell count persisting at 15. Medications: Reviewed: Yes Vitals/I&O/Wt Last Vital Signs Temp 98.1 F 08/08/20 11:57 Pulse 91 08/08/20 11:57 Resp 18 08/08/20 11:57 BP 125/76 08/08/20 11:57 Pulse Ox 92 08/08/20 11:57 08/07/20 08/08/20 08/08/20 22:59 06:59 14:59 Intake Total 300 / 1080 480 / 1560 240 / 240 Output Total 1500 / 1500 200 / 1700 250 / 250 Balance -1200 / -420 280 / -140 -10 / -10 Physical Exam Narrative: EXAM NARRATIVE: GEN: Awake, alert and oriented, morbidly obese man laying in bed in no acute distress CVS: S1S2 N, heart sounds appear distant due to obesity RS: CTA B/L Abd: Soft, nt/nd , bs+ ELECTRICAL SUPERINTENDENT: no focal neuro deficits Extremity lower extremity stasis dermatitis changes. No signs of cellulitis. Urinary Catheter Management^: Flowers: Cath Placed During This Visit: yes Reason for Continuing Indwelling Catheter: Accurate Measurement of Urinary Output in Critically Ill Patients Urinary Catheter Date of Insertion: 08/05/20 Urinary Catheter Time of Insertion: 15:00 Data : 08/08/20 04:44 08/08/20 04:44 A&P Assessment and plan (1) RLL pneumonia: -Likely secondary to immobility -Fever is now resolved -On Rocephin and azithromycin -White blood cell count persisting at 15, check blood culture -Needs to get up out of bed, into bariatric chair -Aggressive pulmonary toilet, incentive spirometer, flutter valve Status: Acute (2) Hypertension: -Continue Norvasc to 10 mg daily -Continue lisinopril hydrochlorthiazide combination This is currently well controlled Status: Inactive (3) Diastolic CHF: -Cardiac echocardiogram pending -Continue Lasix at 40 mg p.o. twice daily. Monitor urine output Discontinue Flowers catheter today. Status: Acute (4) Gout: Continue allopurinol Status: Acute (5) Bilateral lower extremity edema: Status: Acute (6) Morbid obesity with BMI of 60.0-69.9, adult: Needs to follow-up with bariatric clinic, needs to be motivated to lose weight Status: Acute (7) Difficulty in walking: PT OT, however states unable to participate today. Status: Acute (8) Bilateral primary osteoarthritis of hip: PT OT, pain control Status: Acute (9) HLD (hyperlipidemia): Continue simvastatin Status: Acute (10) Unable to ambulate: PT OT Status: Acute (11) Intractable pain: -Diffuse musculoskeletal pain, likely a component of fibromyalgia -Started gabapentin 300 twice daily -Has some calf pain bilaterally, lower extremity Doppler negative for DVT Status: Acute Additional A&P Information Check blood culture as persistent white count at 15 with predominant neutrophilia, discontinue Flowers catheter, arrange for bariatric bread, declined custodial placement per insurance, attempt to arrange bariatric bed to go home. 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
[2020-08-08] MEDS: enoxaparin 40 mg/0.4 mL Syringe SUBCUT (17:22)
[2020-08-08] MEDS: atorvastatin 40 mg Tablet 20 MG PO (20:08)
[2020-08-08] MEDS: allopurinol 100 mg Tablet 200 MG PO (20:08)
[2020-08-08] MEDS: potassium chloride ER 10 mEq Tablet PO (20:09)
[2020-08-09 03:30] VITALS: BP 117/72; PULSE 98; RESP 18; TEMP 36.6; O2SAT 94
[2020-08-09 05:43] LABS: Basophils # 0.1 10^3/uL (0.0-0.1); Basophils % 0.8 %; Eosinophils # 0.3 10^3/uL (0.0-0.8); Eosinophils % 1.7 %; Hematocrit 36.6 % (42.0-52.0); Hemoglobin 11.2 g/dL (11.7-16.6); Lymphocytes # 1.1 10^3/uL (0.8-4.8); Lymphocytes % 7.4 %; Mean Corpuscular HGB Conc 30.6 g/dL (30.0-36.0); Mean Corpuscular Hemoglobin 27.6 pg (28.0-34.0); Mean Corpuscular Volume 90.1 fL (80-94); Mean Platelet Volume 10.6 fL (7.4-10.4); Monocytes # 1.5 10^3/uL (0.2-0.9); Monocytes % 10.2 %; Neutrophils # 10.98 10^3/uL (1.8-7.7); Neutrophils % 76.1 %; Nucleated Red Blood Cells % 0.1 %; Platelet Count 460 10^3/cmm (130-400); Red Blood Count 4.06 10^6/uL (4.1-5.3); Red Cell Distribution Width 14.5 % (12.1-15.1); White Blood Count 14.5 10^3/uL (4.0-10.0)
[2020-08-09] MEDS: FUROsemide 40 mg Tablet PO (05:46)
--- NOTE | 2020-08-09 06:48 | NUR.SHIFT ---
Patient mainly slept through the night with no complaints. Patient tolerated well the DC'd of the vera.
[2020-08-09 07:17] VITALS: BP 122/72; PULSE 68; RESP 18; TEMP 36.6; O2SAT 93
--- NOTE | 2020-08-09 08:48 | PC.NURSE ---
Patient refused to eat, patient stated, I don't want any of that I want my medicine.
[2020-08-09 08:55] LABS: Alanine Aminotransferase 125 U/L (0-41); Albumin Level 2.8 g/dL (3.5-5.2); Alkaline Phosphatase 254 IU/L (40-130); Anion Gap 17.9 (5-19); Aspartate Amino Transferase 117 U/L (0-40); Blood Urea Nitrogen 57 mg/dL (8-23); Calcium 9.7 mg/dL (8.5-10.5); Carbon Dioxide 28 mmol/L (22-29); Chloride 91 mmol/L (98-107); Globulin 4.2 g/dL (1.3-4.6); Glomerular Filtration Rate 50.7 mL/min (90-130); Glucose 129 mg/dL (65-115); Magnesium 2.6 mg/dL (1.7-2.3); Osmolality Calculated 294 mOsm/kg (285-295); Phosphorus 5.3 mg/dL (2.5-4.5); Potassium 3.9 mmol/L (3.5-5.1); Sodium 133 mmol/L (136-145); Total Bilirubin 0.8 mg/dL (0.15-1.2)
[2020-08-09] MEDS: HYDROcodone-acetaminophen 5-325 mg Tablet 1 TAB PO ×2 (08:55→20:45)
[2020-08-09] MEDS: famotidine 20 mg Tablet PO ×2 (08:55→18:07)
[2020-08-09] MEDS: amlodipine 5 mg Tablet 10 MG PO (08:55)
[2020-08-09] MEDS: cyclobenzaprine 10 mg Tablet PO (08:55)
[2020-08-09] MEDS: hydroCHLOROthiazide 25 mg Tablet PO (08:55)
[2020-08-09] MEDS: lisinopril 20 mg Tablet 40 MG PO (08:55)
[2020-08-09] MEDS: gabapentin 300 mg Capsule PO ×2 (08:56→18:07)
--- NOTE | 2020-08-09 10:35 | PC.SOCIAL ---
IMM Update Pg.2 of IMM updated and reviewed with patient, who verbalized undertanding. Copy provided.
[2020-08-09 11:46] VITALS: BP 148/79; PULSE 98; RESP 18; TEMP 36.7; O2SAT 95
[2020-08-09] MEDS: cefTRIAXone 1,000 MG in sodium chloride 0.9% (plus) 50 ML 100 MG IV (11:52)
--- NOTE | 2020-08-09 12:15 | PC.NURSE ---
Prior to medication administration IV site was noted to be reddened and hard. Flushed and IV started leaking and was infiltrated. Immediately removed IV and applied 2x2 and wrapped with coban. Physician was notified of no IV access and was given verbal orders to discontinue IV antibiotics and will start on oral. Patient will be discharged soon.
--- NOTE | 2020-08-09 13:11 | P.DS_ITS ---
Discharge Providers Date of Admission: 08/04/20 14:56 Date of Discharge: August 09, 2020 Attending Provider at Admission: Tremaine Ferrari MD Attending Provider at Discharge: Maite Ayala MD Diagnoses at Discharge Discharge Diagnosis (1) RLL pneumonia: Status: Acute (2) Hypertension: Status: Inactive (3) Diastolic CHF: Status: Acute (4) Gout: Status: Acute (5) Bilateral lower extremity edema: Status: Acute (6) Morbid obesity with BMI of 60.0-69.9, adult: Status: Acute (7) Difficulty in walking: Status: Acute (8) Bilateral primary osteoarthritis of hip: Status: Acute (9) HLD (hyperlipidemia): Status: Acute (10) Unable to ambulate: Status: Acute (11) Intractable pain: Status: Acute Reason for Visit Reason for Visit: swelling and pain in arms and legs Hospital Course Hospital Course Ceferino Duran is a 65 year old male with a past medical history of diastolic CHF, bilateral lower extremity edema, hypertension, hyperlipidemia, gout, morbid obesity, chronic venous insufficiency, bilateral hip osteoarthritis, who presented to [facility] due to complaints of difficulty ambulating, bilateral lower extremity edema, weakness, left shoulder pain. He uses crutches and wheelchair to ambulate. he was diagnosed with diastolic CHF and appropriately diuresed with improvement in Le edema. due to suspicion for RLL pneumonia he received 5 days of empiric abx with cefttriaxone and azithromycin. ASt/ALT noted to mildly elevated. likely contributed by abx use. 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 No signs of cellulitis. Urinary Catheter Management^: Flowers: Cath Placed During This Visit: yes, but has since been removed by the nurse Reason for Continuing Indwelling Catheter: Accurate Measurement of Urinary Output in Critically Ill Patients Urinary Catheter Date of Insertion: 08/05/20 Urinary Catheter Time of Insertion: 15:00 Date Urinary Catheter Removed: 08/09/20 Time Urinary Catheter Discontinued: 05:45 Discharge Data Data Completed and Pending: Completed Studies During Hospitalization Category Date Time Status XR chest 1V dilia ble [id number] Routine Exams 08/06/20 09:12 Completed XR shoulder RT mi n 2V* [id number] Stat Exams 08/04/20 10:47 Completed CV echo wo/w cont rast [id number] Routine Ultrasound 08/05/20 16:35 [place] [id number] Routin e Ultrasound 08/07/20 09:39 Completed US/CV paperwork R outine Ultrasound 08/05/20 Completed Pending at discharge Category Date Time Status Complete Blood Co unt w/Auto AM LABS Lab 08/10/20 04:00 Ordered Comprehensive Met abolic Panel AM LA BS Lab 08/10/20 04:00 Ordered Magnesium AM LABS Lab 08/10/20 04:00 Ordered Phosphorus AM LAB S Lab 08/10/20 04:00 Ordered Labs from last 24 hours 08/09/20 08/09/20 08/09/20 07:54 05:13 05:13 WBC 14.5 H RBC 4.06 L Hgb 11.2 L Hct 36.6 L MCV 90.1 MCH 27.6 L MCHC 30.6 RDW 14.5 Plt Count 460 H MPV 10.6 H Neut % (Auto) 76.1 Lymph % (Auto) 7.4 [place] % (Auto) 10.2 Eos % (Auto) 1.7 Baso % (Auto) 0.8 Neut # (Auto) 10.98 H Lymph # (Auto) 1.1 [place] # (Auto) 1.5 H Eos # (Auto) 0.3 Baso # (Auto) 0.1 Nucleated RBC % (a uto) 0.1 Nucleated RBCs # 0.0 Sodium 133 L Cancelled Potassium 3.9 Cancelled Chloride 91 L Cancelled Carbon Dioxide 28 Cancelled Anion Gap 17.9 Cancelled BUN 57 H Cancelled Creatinine 1.4 H Cancelled GFR Calculation 50.7 L Cancelled Glucose 129 H Cancelled Calculated Osmolal ity 294 Cancelled Calcium 9.7 Cancelled Phosphorus 5.3 H Cancelled Magnesium 2.6 H Cancelled Total Bilirubin 0.8 Cancelled AST 117 H Cancelled ALT 125 H Cancelled Alkaline Phosphata se 254 H Cancelled Total Protein 7.0 Cancelled Albumin 2.8 L Cancelled Globulin 4.2 Cancelled Vitals: Last Vital Signs Temp 98.0 F 08/09/20 11:46 Pulse 98 08/09/20 11:46 Resp 18 08/09/20 11:46 BP 148/79 08/09/20 11:46 Pulse Ox 95 08/09/20 11:46 Discharge Plan Discharge Patient Disposition: Home Condition: Stable Prescriptions: New amlodipine 5 mg Tablet 10 mg PO DAILY@08 30 Days RF: 0 famotidine 20 mg Tablet 20 mg PO BID 30 Days Qty: 60 RF: 0 gabapentin 300 mg Capsule 300 mg PO BID 30 Days Qty: 60 RF: 0 Continued simvastatin [Zocor] 10 mg tablet 10 mg PO DAILY@20 RF: 0 furosemide [Lasix] 40 mg tablet 40 mg PO DAILY@13 RF: 0 hydrocodone-acetaminophen [[place]] 5-325 mg tablet 1 tab PO Q6H PRN (Reason: Pain) RF: 0 cyclobenzaprine 10 mg tablet 10 mg PO DAILY@08 RF: 0 lisinopril-hydrochlorothiazide 20-12.5 mg Tablet 2 tab PO DAILY@08 RF: 0 potassium chloride 10 mEq Tablet Extended Release 10 meq PO DAILY@20 RF: 0 allopurinol 100 mg Tablet 200 mg PO DAILY@20 RF: 0 Changed amlodipine 5 mg tablet 10 mg PO DAILY@08 Qty: 0 RF: 0 Discontinued naproxen 500 mg tablet 500 mg PO BID@, RF: 0 Discharge Orders: Discharge Order (Routine); Ordered 08/09/20 Ordered By: Maite Ayala Other Ambulatory Orders: DME: Hospital Bed (Order) Location: None Selected Ordered By: Maite Ayala Discharge Diet: Usual diet Discharge Activity: Resume usual activity Patient Instructions: Pneumonia (DC), Pain Management Discharge Attestations Time Spent in Discharge Care*: greater than 30 min Quality Metrics Clinical Quality Measures During this hospital stay, did patient experience: None Coding Level of Care Code Acute End Finder Twisting Department for g Fwd Diagnoses RLL pneumonia J18.9 Hypertension I10 Diastolic CHF I50.30 Gout M10.9 Bilateral lower extremity edema R60.0 Morbid obesity with BMI of 60.0-69.9, adult E66.01; Z68.44 Difficulty in walking R26.2 Bilateral primary osteoarthritis of hip M16.0 HLD (hyperlipidemia) E78.5 Unable to ambulate R26.2 Intractable pain R52
--- NOTE | 2020-08-09 14:10 | PC.OT ---
OT tx attempted at this time. Pt declines stating I don't need it I am going home . Therapist discussing pt's discharge plans regarding safe mobility once home. Pt states I will be able to walk with my crutches . Pt has not been able to get up out of bed since he was admitted to hospital secondary to weakness and pain. Pt states it will not be comfortable,but it will be fine . Pt plans to return home later today with assist of .
[2020-08-09 15:49] VITALS: BP 140/77; PULSE 99; RESP 16; TEMP 37.1; O2SAT 90
[2020-08-09] MEDS: enoxaparin 40 mg/0.4 mL Syringe SUBCUT (18:07)
[2020-08-09 19:54] VITALS: BP 147/80; PULSE 110; RESP 20; TEMP 36.7; O2SAT 92
[2020-08-09] MEDS: allopurinol 100 mg Tablet 200 MG PO (20:37)
[2020-08-09] MEDS: atorvastatin 40 mg Tablet 20 MG PO (20:37)
[2020-08-09] MEDS: potassium chloride ER 10 mEq Tablet PO (20:37)
--- NOTE | 2020-08-09 22:04 | PC.NURSE ---
Efforts to transfer patient to home were unsuccessful. Pt still exhibits severe weakness - he could not move his legs at all to stand up once he was positioned by multiple nurses to the side of the bed. Was unable to move his body at all with out the help of staff. Pt was also calling out in pain. Spoke with patient about his need to participate in his physical therapy, as it is the only way he will regain the strength to go home or a skilled facility to continue therapy. Pt states he understands and is in agreeable to what was said although it is my observation that he needs reinforcement and motivation to carry this out.
[2020-08-09 23:37] VITALS: PULSE 102; RESP 19; O2SAT 93
[2020-08-10] VITALS (7 sets, daily range): BP systolic 99–131; BP diastolic 57–80; PULSE 94–105; RESP 16–28; TEMP 36.6–37.5; O2SAT 90–94
--- NOTE | 2020-08-10 06:39 | PC.NURSE ---
Patient voided tonight enough to soak entire chucks and bed at shift change.
[2020-08-10 07:09] LABS: Hematocrit 35.7 % (42.0-52.0); Hemoglobin 10.8 g/dL (11.7-16.6); Mean Corpuscular HGB Conc 30.3 g/dL (30.0-36.0); Mean Corpuscular Hemoglobin 27.4 pg (28.0-34.0); Mean Corpuscular Volume 90.6 fL (80-94); Mean Platelet Volume 10.9 fL (7.4-10.4); Platelet Count 519 10^3/cmm (130-400); Red Blood Count 3.94 10^6/uL (4.1-5.3); Red Cell Distribution Width 14.6 % (12.1-15.1); White Blood Count 19.5 10^3/uL (4.0-10.0)
[2020-08-10 07:42] LABS: Alanine Aminotransferase 116 U/L (0-41); Albumin Level 2.8 g/dL (3.5-5.2); Alkaline Phosphatase 270 IU/L (40-130); Anion Gap 21.2 (5-19); Aspartate Amino Transferase 104 U/L (0-40); Blood Urea Nitrogen 67 mg/dL (8-23); Calcium 9.9 mg/dL (8.5-10.5); Carbon Dioxide 26 mmol/L (22-29); Chloride 93 mmol/L (98-107); Globulin 4.3 g/dL (1.3-4.6); Glomerular Filtration Rate 30.1 mL/min (90-130); Glucose 119 mg/dL (65-115); Magnesium 2.8 mg/dL (1.7-2.3); Osmolality Calculated 303 mOsm/kg (285-295); Phosphorus 5.6 mg/dL (2.5-4.5); Potassium 4.2 mmol/L (3.5-5.1); Sodium 136 mmol/L (136-145); Total Protein 7.1 g/dL (6.6-8.7)
[2020-08-10] MEDS: lisinopril 20 mg Tablet 40 MG PO (08:35)
[2020-08-10] MEDS: famotidine 20 mg Tablet PO ×2 (08:35→17:06)
[2020-08-10] MEDS: cyclobenzaprine 10 mg Tablet PO (08:35)
[2020-08-10] MEDS: gabapentin 300 mg Capsule PO ×2 (08:36→17:06)
[2020-08-10] MEDS: amlodipine 5 mg Tablet 10 MG PO (08:36)
[2020-08-10 09:29] LABS: Slide Review Slide Review Perform
[2020-08-10 09:32] LABS: Absolute Segmented Neutrophil 14.8 10/cmm (1.6-7.1); Band Neutrophils Absolute 1.2 10^3/cmm (0.0-1.2); Giant Platelets Trace; Lymphocytes 7 %; Monocytes Absolute 1.4 10^3/cmm (0.1-0.6); Platelet Estimate Normal (Normal); Segmented Neutrophils 76 %; Total Cells Counted 100 (0-100)
[2020-08-10 09:33] LABS: Eosinophils 0 %
--- NOTE | 2020-08-10 10:14 | CT_ITS ---
WS: [id number] CT CHEST, ABDOMEN AND PELVIS WITHOUT CONTRAST. HISTORY: sepsis, source under evaluation TECHNIQUE: Contiguous 5 mm axial imaging performed through the chest, abdomen and pelvis without IV c ontrast, oral contrast has not been provided. Coronal and sagittal reformats chest. Coronal and sagit lazarus reformats through the abdomen and pelvis. All CT scans at [facility] use at least one of these dose optimization techniques: automated exposure control; mA and/or kV adjustment per patie nt size (includes targeted exams where dose is matched to clinical indication); or iterative reconstr uction. CONTRAST: None DLP: 2667.37 mGy.cm COMPARISON: None available. Chest CT: Study is limited by breathing motion, body habitus and rotation. There is mild haziness ove r both lungs which is predominantly due to breathing artifact. Small areas of pneumonia or consolidat ion may be obscured. No definite pneumonias. Heart is slightly enlarged. There is no pericardial or p leural effusion or pneumothorax. No adenopathy appreciated. No soft tissue abnormalities. Mild athero sclerosis aorta. Abdomen CT: Moderate hepatomegaly and hepatic steatosis. Gallbladder is normally distended with no ad jacent inflammation. Spleen is normal size. No inflammation around the pancreas or adrenal glands. No renal obstruction or hydronephrosis. Mild atherosclerosis aorta. No ascites or free air. Pelvic CT: No free fluid in the pelvis. No adenopathy. No GI tract obstruction. Significant motion ar tifact is obliterating detail of the colon. There is some lytic changes in the L3 and L4 vertebral bodies with loss of the normal cortex. There i s no adjacent inflammation. CT/CT chest abd pel wo con IMPRESSION: 1. Study is limited by motion, rotation and body habitus. 2. No pneumonia appreciated. 3. Mild hepatic steatosis and hepatomegaly. No bile duct dilatation seen on th is unenhanced study. No inflammatory changes surrounding the gallbladder or benito creas. 4. No free fluid or free air noted on this limited CT. 5. Lytic changes in the L3 and L4 vertebral bodies without adjacent inflammati on. Indolent vertebral body osteomyelitis, metastatic disease or degenerative c ystic changes in the vertebral bodies. This would not likely be accessible for CT-guided biopsy due to the patient's body habitus. MRI weight limit may be an issue for MRI with contrast.
--- NOTE | 2020-08-10 10:45 | P.PN_ITS ---
Subjective Subjective: Interval history: Patient was originally planned for discharge yesterday evening, however he had a ride and therefore did not leave the hospital. This morning he has had an acute change in clinical status. He now has leukocytosis up to 19, kidney function has worsened with creatinine up to 2.2, urine output is falling, lft is additionally noted to be elevated. Did not receive his antibiotics yesterday due to lack of an IV access line. In addition he is appearing to be ill, tachypneic, saturating 90% which is a change compared to yesterday. Discharge has been canceled in light of the above changes. Afebrile. Hemodynamics have been stable. Medications: Reviewed: Yes Vitals/I&O/Wt Last Vital Signs Temp 99.5 F 08/10/20 15:37 Pulse 94 08/10/20 15:37 Resp 17 08/10/20 15:37 BP 115/70 08/10/20 15:37 Pulse Ox 93 08/10/20 15:37 08/10/20 08/10/20 08/10/20 06:59 14:59 22:59 Intake Total 200 / 640 360 / 360 Balance 200 / 640 360 / 360 Physical Exam Narrative: EXAM NARRATIVE: GEN: Awake, alert and oriented, morbidly obese man in mild distress secondary to reported pain. He looks visibly uncomfortable today. Noted to be flushed and tachypneic which is a change management specialist yesterday. 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 Urinary Catheter Management^: Flowers: Cath Placed During This Visit: yes, but has since been removed by the nurse Reason for Continuing Indwelling Catheter: Accurate Measurement of Urinary Output in Critically Ill Patients Urinary Catheter Date of Insertion: 08/05/20 Urinary Catheter Time of Insertion: 15:00 Date Urinary Catheter Removed: 08/09/20 Time Urinary Catheter Discontinued: 05:45 Data : 08/10/20 05:20 08/10/20 05:20 Micro: Microbiology 08/10/20 12:00 Bacterial Antigens - Final Urine,Voided 08/10/20 13:28 Blood Culture - Preliminary Blood SPECIMEN COLLECTED 08/10/20 10:56 Blood Culture - Preliminary Blood SPECIMEN COLLECTED A&P Assessment and plan (1) RLL pneumonia: Initially on chest x-ray patient was noted to have right lower lobe pneumo marvin for which she received treatment with ceftriaxone and azithromycin. Today patient appears to have had a change in clinical status, more tachypneic, appearing to be more flushed. Concomitantly leukocytosis has increased to 19. We will evaluate with CT of the chest for any consolidative process versus development of complicated parapneumonic effusions. Check bacterial antigen panel MRSA nasal screen. Additionally noted to have rising creatinine. UA upon admission was with 15-25 WBC, positive leuk esterase, 2+ bacteria, no urine culture specimen available from admission. Will obtain urine culture today. Additionally ordered blood cultures. Check CT of the abdomen and pelvis to evaluate for any obstructive uropathy. Difficult to assess for pyelonephritis given patient's body habitus. Note made of transaminitis with AST ALT increased to [address] abdomen additionally to evaluate for obstructive biliary process. Recheck rapid Covid antigen. If negative will evaluate with PCR additionally. Patient's chart makes note of allergy to cephalexin, however does not state the nature of allergy. Unlikely to have transaminitis as a result of hemolytic anemia/DIHA as T bili is within range. Patient has not received cephalexin but did receive ceftriaxone during the course of admission.Will check haptoglobin level and LDH with am labs Hold lipitor given rising LFTs Status: Acute (2) Hypertension: -Continue Norvasc to 10 mg daily -Discontinue lisinopril given creatinine increased to 2.2 This is currently well controlled Status: Inactive (3) Diastolic CHF: -Cardiac echocardiogram pending -d/c lasix given rising cr today, monitor urine output closely, Flowers catheter Status: Acute (4) Gout: Continue allopurinol Status: Acute (5) Bilateral lower extremity edema: Status: Acute (6) Morbid obesity with BMI of 60.0-69.9, adult: Needs to follow-up with bariatric clinic, needs to be motivated to lose weight Status: Acute (7) Difficulty in walking: PT OT, however states unable to participate due to weakness Status: Acute (8) Bilateral primary osteoarthritis of hip: PT OT, pain control Status: Acute (9) HLD (hyperlipidemia): Continue simvastatin Status: Acute (10) Unable to ambulate: PT OT Status: Acute (11) Intractable pain: -Has some calf pain bilaterally, lower extremity Doppler negative for DVT Status: Acute Additional A&P Information Dvt ppx: lovenox Dispo: was initially declined for SNF placement, however given new changes in clinical status and significant deconditioing, do believe SNF will be more appropriate when ready for discharge Attestations Medical Necessity Statement*: sepsis evalution ongoing, rising cr, LFT and worsening kidney function Coding Level of Care Code Acute Armored Car Guard for Chg Fwd Diagnoses RLL pneumonia J18.9 Hypertension I10 Diastolic CHF I50.30 Gout M10.9 Bilateral lower extremity edema R60.0 Morbid obesity with BMI of 60.0-69.9, adult E66.01; Z68.44 Difficulty in walking R26.2 Bilateral primary osteoarthritis of hip M16.0 HLD (hyperlipidemia) E78.5 Unable to ambulate R26.2 Intractable pain R52
[2020-08-10] MEDS: piperacillin-tazobactam 3.375 GM in sodium chloride 0.9% (plus) 50 ML IV ×2 (13:06→18:11)
[2020-08-10] MEDS: HYDROcodone-acetaminophen 5-325 mg Tablet 1 TAB PO (15:21)
[2020-08-10 15:22] LABS: SARS Covid-2 Antigen Negative (Negative)
[2020-08-10] MEDS: enoxaparin 40 mg/0.4 mL Syringe SUBCUT (17:06)
[2020-08-10] MEDS: allopurinol 100 mg Tablet 200 MG PO (22:23)
[2020-08-10] MEDS: potassium chloride ER 10 mEq Tablet PO (22:23)
[2020-08-11] VITALS (12 sets, daily range): BP systolic 103–133; BP diastolic 60–95; PULSE 84–99; RESP 16–28; TEMP 36.4–36.8; O2SAT 92–98
[2020-08-11] MEDS: piperacillin-tazobactam 3.375 GM in sodium chloride 0.9% (plus) 50 ML IV ×3 (03:43→21:32)
[2020-08-11 04:07] LABS: Basophils # 0.2 10^3/uL (0.0-0.1); Basophils % 0.8 %; Eosinophils # 0.2 10^3/uL (0.0-0.8); Hematocrit 34.7 % (42.0-52.0); Lymphocytes # 1.3 10^3/uL (0.8-4.8); Lymphocytes % 6.8 %; Mean Corpuscular HGB Conc 31.7 g/dL (30.0-36.0); Mean Corpuscular Hemoglobin 27.9 pg (28.0-34.0); Mean Corpuscular Volume 88.1 fL (80-94); Mean Platelet Volume 10.6 fL (7.4-10.4); Monocytes # 1.8 10^3/uL (0.2-0.9); Monocytes % 9.2 %; Neutrophils # 14.02 10^3/uL (1.8-7.7); Neutrophils % 73.6 %; Nucleated Red Blood Cells % 0 %; Platelet Count 570 10^3/cmm (130-400); Red Blood Count 3.94 10^6/uL (4.1-5.3); Red Cell Distribution Width 14.8 % (12.1-15.1); White Blood Count 19.1 10^3/uL (4.0-10.0)
[2020-08-11 04:37] LABS: Alanine Aminotransferase 102 U/L (0-41); Albumin Level 2.8 g/dL (3.5-5.2); Alkaline Phosphatase 238 IU/L (40-130); Anion Gap 24.9 (5-19); Aspartate Amino Transferase 126 U/L (0-40); Calcium 10.1 mg/dL (8.5-10.5); Carbon Dioxide 25 mmol/L (22-29); Chloride 89 mmol/L (98-107); Globulin 4.7 g/dL (1.3-4.6); Glomerular Filtration Rate 14.7 mL/min (90-130); Glucose 128 mg/dL (65-115); Osmolality Calculated 309 mOsm/kg (285-295); Potassium 4.9 mmol/L (3.5-5.1); Sodium 134 mmol/L (136-145); Total Bilirubin 1.2 mg/dL (0.15-1.2); Total Protein 7.5 g/dL (6.6-8.7)
[2020-08-11 04:41] LABS: NT Pro B Type Natriuretic Pept 166 pg/mL (0-125); Procalcitonin 3.94 ng/mL (0-0.5)
[2020-08-11 04:52] LABS: Blood Urea Nitrogen 94 mg/dL (8-23); Lactate Dehydrogenase 317 U/L (135-225)
[2020-08-11 05:14] LABS: Erythrocyte Sedimentation Rate 114 mm/hr (0-10)
[2020-08-11 05:25] LABS: Slide Review Slide Review Perform
[2020-08-11] MEDS: amlodipine 5 mg Tablet 10 MG PO (09:23)
[2020-08-11] MEDS: cyclobenzaprine 10 mg Tablet PO (09:23)
[2020-08-11] MEDS: famotidine 20 mg Tablet PO ×2 (09:23→19:10)
[2020-08-11] MEDS: gabapentin 300 mg Capsule PO ×2 (09:23→19:10)
[2020-08-11] MEDS: sodium chloride 0.9% 1,000 ML 75 ML IV (09:24)
[2020-08-11 10:22] LABS: LAB Peripheral Smear Sent for Review
[2020-08-11] MEDS: linezolid premix 600 MG/300 ML PREMIX 300 MG IV (10:48)
[2020-08-11 10:56] LABS: Procalcitonin 4.76 ng/mL (0-0.5)
[2020-08-11 11:05] LABS: Erythrocyte Sedimentation Rate > 120 mm/hr (0-10)
--- NOTE | 2020-08-11 11:05 | XRR_ITS ---
PROCEDURE INFORMATION: Exam: XR Chest, 1 View Exam date and time: 08/11/2020 11:38 AM Age: 65 years old Clinical indication: Cardiovascular condition or disease; Congestive heart failure (chf); Cause unknown; Type unknown TECHNIQUE: Imaging protocol: XR of the chest Views: 1 view. COMPARISON: CT chest abd pel wo con 08/10/2020 11:17 AM FINDINGS: Lungs: Unremarkable. No consolidation. Pleural space: Unremarkable. No pleural effusion. No pneumothorax. Heart/Mediastinum: The heart is probably normal in size considering the poor inspiration and rotated projection. It is unchanged. Vasculature: There is calcification of the aorta. Bones/joints: Unremarkable. Other findings: The examination is limited due to patient rotation. XR/XR chest 1V portable [id number] IMPRESSION: No definite acute abnormalities are seen in the chest.
--- NOTE | 2020-08-11 11:14 | PM.CONSULT ---
Providers/Reason For Consult Consulting Physican/Specialty*: albertina soto md Reason for Consult*: MAGGIE Attending Physician: Tremaine Ferrari MD History of Present Illness History of Present Illness Ceferino Rodarte is a 65 year old male h/o diastolic CHF, leg edema, htn, morbid obesity, hyperlipidemia, gout, hip osteoarthritis, limited mobility. Pt was admitted on 08-04-20 for pain control, weakness- inability to ambulate. at home he is on lisinopril, hctz, potassium, and lasix. On admisison they continued home meds, increased norvasc and lasix. Echo was done- revealed EF 55%, could not assess diastolic function. pt was on a statin. A Vera was placed 08-07-20, ur cx were sent- started on rocephin and azithromycin for Q of RLL- for fevers. by 08-08-20 WBC opal to 15. By 08-09 his lfts started to rise, his cr was 0.9 on 08-07, opal to 1.2 on 08-08 and 1.4 on 08/09. At some point he received naproxen. By 08-10 cr upto 2.2, wbc opal to 19, he started to look ill, hypotensive, tachypneic- and BP was on low side- whil;e it was high first 4 Plus days here. Pt had a ct chest/ abd/ pelvis on 08-10- revealed andre lesions on L3, L4- Q of osteomyelitis or malignancy. Lisinopril and lasix were held on 08-10. We are called now as he is oligo-anuric and cr up to 4.1. he is weak and confused. not sob. he has a vera catheter. Pts abx were changed to linezolid. Review of Systems General: Reports: 10 or more systems reviewed and unremarkable except in HPI and below Narrative: weak, confused, leg edema. denies sob, cough, cp, abd pain. he is very weak- can not ambulate Meds/Allergies Home Medications and Allergies Home Medications Medication Instructions Recorded Confirmed Last Taken Type cyclobenzaprine 10 mg tablet 10 mg PO DAILY@08 tab 07/28/20 08/04/20 08/04/20 History furosemide 40 mg tablet 40 mg PO DAILY@13 07/28/20 08/04/20 08/04/20 History hydrocodone 5 mg-acetaminophen 325 1 tab PO Q6H PRN 07/28/20 08/04/20 08/04/20 History mg tablet simvastatin 10 mg tablet 10 mg PO DAILY@20 07/28/20 08/04/20 08/03/20 History allopurinol 200 mg PO DAILY@20 08/04/20 08/04/20 08/03/20 History lisinopril-hydrochlorothiazide 2 tab PO DAILY@08 08/04/20 08/04/20 08/04/20 History potassium chloride 10 meq PO DAILY@08/04/20 08/04/20 08/03/20 History amlodipine 10 mg PO DAILY@08 #0 tab 08/09/20 08/04/20 08/04/20 Rx amlodipine 10 mg PO DAILY@08 30 Days tab 08/09/20 Unknown Rx famotidine 20 mg PO BID 30 Days #60 tab 08/09/20 Unknown Rx gabapentin 300 mg PO BID 30 Days #60 cap 08/09/20 Unknown Rx Allergies Allergy/AdvReac Type Severity Reaction Status Date / Time cephalexin [From Keflex] Allergy Unknown Verified 08/04/20 10:15 paper tapre Allergy Unknown Uncoded 08/04/20 10:15 Current Medications Current Medications Generic Name Dose Route Start Last Admin Trade Name Freq PRN Reason Stop Dose Admin Hydrocodone Bitart/Acetaminophen 1 tab 08/10/20 15:11 08/10/20 15:21 Hydrocodone-Acetaminophen 5-325 Mg Tablet PO 1 tab Q4H PRN Administration MODERATE PAIN Allopurinol 200 mg 08/04/20 20:00 08/10/20 22:23 Allopurinol 100 Mg Tablet PO 200 mg DAILY@20 INA Administration Amlodipine Besylate 10 mg 08/05/20 08:00 08/11/20 09:23 Amlodipine 5 Mg Tablet PO 10 mg DAILY@08 INA Administration Atorvastatin Calcium 20 mg 08/04/20 20:00 08/09/20 20:37 Atorvastatin 40 Mg Tablet PO 20 mg DAILY@20 INA Administration Enoxaparin Sodium 40 mg 08/04/20 17:00 08/10/20 17:06 Enoxaparin 40 Mg/0.4 Ml Syringe SUBCUT 40 mg Q24H INA Administration Famotidine 20 mg 08/04/20 18:00 08/11/20 09:23 Famotidine 20 Mg Tablet PO 20 mg BID INA Administration Gabapentin 300 mg 08/07/20 09:40 08/11/20 09:23 Gabapentin 300 Mg Capsule PO 300 mg BID INA Administration Piperacillin Sod/Tazobactam 50 mls @ 12.5 mls/hr 08/10/20 11:00 08/11/20 03:43 Sod 3.375 gm/ Sodium Chloride IV 12.5 mls/hr Q8H INA Administration Protocol Sodium Chloride 1,000 mls @ 75 mls/hr 08/11/20 07:30 08/11/20 09:24 Sodium Chloride 0.9% IV 75 mls/hr .[id number] INA Administration Linezolid 600 mg in 300 mls @ 300 mls/hr 08/11/20 11:00 08/11/20 10:48 Zyvox Premix IV 300 mls/hr Q12H INA Administration Protocol Potassium Chloride 10 meq 08/04/20 20:00 08/10/20 22:23 Potassium Chloride Er 10 Meq Tablet PO 10 meq DAILY@20 INA Administration PFSH Acute PFSH: Medical History (Updated 08/06/20 @ 14:23 by Tremaine Ferrari MD) Arthritis Bilateral primary osteoarthritis of hip Diastolic CHF Gout HLD (hyperlipidemia) Hypertension Surgical History (Updated 08/04/20 @ 15:08 by Tremaine Ferrari MD) H/O vein stripping H/O ventral hernia repair Family History (Updated 08/04/20 @ 15:09 by Tremaine Ferrari MD) Father CAD (coronary artery disease) Mother Aspiration pneumonia Social History (Updated 07/28/20 @ 10:07 by Nicholas Jaimes LPN) Smoking and tobacco status: never smoked Alcohol intake: never Current occupational status: retired Vitals/I&O/Wt Last Vital Signs Temp 98.2 F 08/11/20 08:00 Pulse 90 08/11/20 08:00 Resp 18 08/11/20 08:00 BP 130/80 08/11/20 08:00 Pulse Ox 94 08/11/20 08:00 08/10/20 08/11/20 08/11/20 22:59 06:59 14:59 Intake Total 100 / 460 300 / 760 120 / 120 Output Total 50 / 50 Balance 100 / 460 250 / 710 120 / 120 Physical Exam Narrative: EXAM NARRATIVE: obese man in bed, confused- no SOB VS noted and stable- had low BP overnight heent- nc/at, eomi neck no jvp lung no rales or crackles- poor air movement heart reg abd soft, nt, nd, +BS ext b/l edema neuro- a,a, o x name, thinks he is in [place]- does not know hospital Urinary Catheter Management^: Vera: Cath Placed During This Visit: yes, but has since been removed by the nurse Reason for Continuing Indwelling Catheter: Accurate Measurement of Urinary Output in Critically Ill Patients Urinary Catheter Date of Insertion: 08/05/20 Urinary Catheter Time of Insertion: 15:00 Date Urinary Catheter Removed: 08/09/20 Time Urinary Catheter Discontinued: 05:45 Data Micro: Micro: Microbiology 08/10/20 10:56 Blood Culture - Pr eliminary Blood NEGATIVE TO UGO E 08/10/20 12:00 Bacterial Antigens - Final Urine,Voided 08/10/20 13:28 Blood Culture - Pr eliminary Blood SPECIMEN COLLEC LIONEL A&P Additional A&P Information 65 yr old man morbid obesity, osteoarthritis, diastolic dysfunction- per hx, leg edema, htn, gout. Pt admitted for weakness. Developed infection and/ or sepsis. on admission he was treated w/ lasix , robert-i, allopurinol, thizide and norvasc. BP was high and now on low side of normal. his cr opal from 0.9 on 08/07/20 to 1.4 on 08/09 to 4.1 today. 1. Stage 3AKI- oligo-anuric- no hydronephrosis on CT scan on 08-10-20 D Dx is ATN, Rhabdomyolysis, infection related GN, AIN, or others -flush vera send urine studies -check ck -check serologies as had hematuria on admission- doubt a renal- pulm syndrome -agree w/ ivf -monitor chemistries, cr, uop- pt may need dialysis soon 2. AMS- can be from sepsis, renal failure- check ammonia and ABG 3. infection- Q pna vs osteomyelitis of vertebra- can explain progressive weakness 4. Gluc contorl 5. inc LFT's- likely shocked liver, in setting of MAGGIE/ aTN and sepsis Consult Attestations Medical Necessity Statement: maggie, sepsis, AMS, inc LFTS Time Spent in Patient Care: Greater than 35 minutes Coding Level of Care Code Acute Assistant Technician for Corrie Ordonez
[2020-08-11 11:20] LABS: C Reactive Protein 545.6 mg/L (0.0-4.9)
[2020-08-11 12:44] LABS: Ammonia 23 umol/L (16-60)
--- NOTE | 2020-08-11 14:08 | PC.PT ---
Nursing denied PT due to pt unwillingness to participate.
--- NOTE | 2020-08-11 14:12 | PM.PN ---
Subjective Subjective: Interval history: This morning patient was examined, he is alert to person, to place, not to time, is a bit drowsy, tells me that he has not had a lot of sleep overnight, did use a CPAP, his ABG does not show any significant hypoxia or hypercarbia, is redirectable, does follow commands, does answer most questions appropriately, nurses later were able to speak with him, they had no concerns, he was quite sound to them, he is also seen by respiratory therapy placed on BiPAP, patient was quite vocal, quite sound, no episodes confusion -This morning he has diffuse musculoskeletal pain, pain in his hands, pain in his legs, but he does complain of lower back pain, no fevers, no chills, no nausea, no vomiting, no lightheadedness, dizziness, no headache, no blurry vision, no neck pain, no neck stiffness, no pain with range of motion Medications: Reviewed: Yes Vitals/I&O/Wt Last Vital Signs Temp 98.2 F 08/11/20 08:00 Pulse 90 08/11/20 12:35 Resp 18 08/11/20 08:00 BP 130/80 08/11/20 08:00 Pulse Ox 95 08/11/20 12:35 08/10/20 08/11/20 08/11/20 22:59 06:59 14:59 Intake Total 100 / 460 300 / 760 170 / 170 Output Total 50 / 50 Balance 100 / 460 250 / 710 170 / 170 Physical Exam Narrative: EXAM NARRATIVE: Morbidly obese male Large pannus Const: COMMON NORMALS: no acute distress ORIENTATION/CONSCIOUSNESS: Yes awake, Yes oriented to person, Yes oriented to place and Yes oriented to time OTHER: Morbidly obese gentleman A bit drowsy this morning HENMT: COMMON NORMALS: normocephalic HEAD & SCALP: normocephalic Neck/C-Spine: COMMON NORMALS: no JVD Resp: COMMON NORMALS: normal respiratory effort, No retractions, No use of accessory muscles and clear to auscultation bilaterally AUSCULTATION: clear to auscultation bilaterally Cardio: COMMON NORMALS: no JVD, regular rate, regular rhythm, S1 normal heart sound present and S2 normal heart sound present RATE: regular rate RHYTHM: regular rhythm HEART SOUNDS: S1 normal heart sound present and S2 normal heart sound present GI: COMMON NORMALS: Normal to inspection, nondistended, normoactive bowel sounds present, Soft to palpation, non-tender, No hepatosplenomegaly present, no masses and no bruits PALPATION: Yes Soft to palpation and Yes No hepatosplenomegaly present Extremity: COMMON NORMALS: normal to inspection, full ROM, capillary refill normal, no clubbing, cyanosis or edema, no calf tenderness and no pedal edema NARRATIVE EXTREMITY EXAM: Minimal pitting edema Neuro: COMMON NORMALS: CN's II-XII intact bilaterally, moves all extremities and no focal motor deficits SENSORIUM/ORIENTATION: Yes oriented to person, Yes oriented to place and Yes oriented to time Psych: COMMON NORMALS: mental status grossly normal and Normal thought process present THOUGHT PROCESS: Normal thought process present Urinary Catheter Management^: Flowers: Cath Placed During This Visit: yes, but has since been removed by the nurse Reason for Continuing Indwelling Catheter: Accurate Measurement of Urinary Output in Critically Ill Patients Urinary Catheter Date of Insertion: 08/05/20 Urinary Catheter Time of Insertion: 15:00 Date Urinary Catheter Removed: 08/09/20 Time Urinary Catheter Discontinued: 05:45 Data : 08/11/20 03:54 08/11/20 03:54 Micro: Microbiology 08/10/20 13:28 Blood Culture - Preliminary Blood NEGATIVE TO DATE 08/10/20 12:00 Urine Culture - Preliminary Urine Catheterized 08/10/20 10:56 Blood Culture - Preliminary Blood NEGATIVE TO DATE 08/10/20 12:00 Bacterial Antigens - Final Urine,Voided A&P Assessment and plan (1) Vertebral osteomyelitis: -With sepsis -CT of abdomen pelvis shows:Lytic changes in the L3 and L4 vertebral bodies without adjacent inflammation. Indolent vertebral body osteomyelitis, metastatic disease or degenerative cystic changes in the vertebral bodies. -I went over CT scan findings with Dr. Cuellar, she feels that changes in vertebral bodies are likely related to osteomyelitis -Unfortunately patient cannot have a MRI given his body habitus -Unfortunate patient cannot have a CT-guided biopsy, due to his body habitus, difficulty accessing site -White blood cell count 19.1, ESR greater than 120, procalcitonin 4.76 -Sepsis findings, given transaminitis, acute renal failure -Blood pressure 130/80, pulse 90, respiratory 18, temp 98.2, saturating 95% on room air -Lactic acid and CPK pending Plan: -Continue neurochecks -Continue bariatric bed -Placed on broad-spectrum antibiotic therapy Zyvox and Zosyn -Monitor clinical progress -If patient starts to clinically worsen, will consider transferring for higher level of care Status: Acute (2) Somnolence: -A bit drowsy this morning, tells me that he did not get sleep last night, follows all commands, alert oriented x2, cranial nerves intact -ABG did not show any significant hypoxia or hypercarbia -I did place him on BiPAP -The question is does he have meningitis in addition to vertebral osteomyelitis as the below, does not have any neck pain, no neck stiffness, no fevers, no nausea, vomiting, blurry vision, but will monitor closely -Neurochecks Status: Acute (3) Acute renal failure: -Etiology is unclear at this point -Patient did have 1 hypotensive episode yesterday afternoon, possibility to sepsis -Has not received any NSAIDs, is on lisinopril hydrochlorthiazide which has been held -Was on Lasix therapy -He does have a allergy to cephalexin, allergy unknown, patient is unsure what the allergy is, could he possibly have dress syndrome, however does not have significant eosinophilia on CBC -We will hold allopurinol as associate with dress syndrome,, Denis Diogo syndrome -CPK and uric acid are pending -CT scan of the abdomen pelvis does not show any significant obstructive uropathy, or kidney stone, but it was a difficult study -Urine output 50 cc, cr 4.1 Plan: -Continue gentle IV hydration -Nephrology on consult -Renal ultrasound -Urine studies ordered -Peripheral smear -CPK and uric acid Status: Acute (4) RLL pneumonia: Initially on chest x-ray patient was noted to have right lower lobe pneumonia for which she received treatment with ceftriaxone and azithromycin. CT chest negative for consolidative process Status: Acute (5) Hypertension: -Continue Norvasc to 10 mg daily -Discontinue lisinopril given creatinine increased to 2.2 This is currently well controlled Status: Inactive (6) Diastolic CHF: -Cardiac echocardiogram pending -d/c lasix given rising cr today, monitor urine output closely, Flowers catheter Status: Acute (7) Gout: Continue allopurinol Status: Acute (8) Bilateral lower extremity edema: Minimal today Status: Acute (9) Morbid obesity with BMI of 60.0-69.9, adult: Needs to follow-up with bariatric clinic, needs to be motivated to lose weight Status: Acute (10) Difficulty in walking: PT OT, however states unable to participate due to weakness Status: Acute (11) Bilateral primary osteoarthritis of hip: PT OT, pain control Status: Acute (12) HLD (hyperlipidemia): Continue simvastatin Status: Acute (13) Unable to ambulate: PT OT Status: Acute (14) Intractable pain: -Has some calf pain bilaterally, lower extremity Doppler negative for DVT Status: Acute Additional A&P Information Dvt ppx: lovenox Dispo: Likely requires [place] [facility] facility placement Attestations Medical Necessity Statement*: Patient requires hospitalization, inpatient, greater than 2 midnights, for vertebral osteomyelitis, with sepsis, with hepatic toxicity, renal failure, Coding Level of Care Code Acute Insurance Auditor for Chg Fwd Diagnoses Vertebral osteomyelitis M46.20 Somnolence R40.0 Acute renal failure N17.9 RLL pneumonia J18.9 Hypertension I10 Diastolic CHF I50.30 Gout M10.9 Bilateral lower extremity edema R60.0 Morbid obesity with BMI of 60.0-69.9, adult E66.01; Z68.44 Difficulty in walking R26.2 Bilateral primary osteoarthritis of hip M16.0 HLD (hyperlipidemia) E78.5 Unable to ambulate R26.2 Intractable pain R52
--- NOTE | 2020-08-11 14:32 | USR_ITS ---
PROCEDURE INFORMATION: Exam: US Retroperitoneal; Complete; Kidneys and Bladder Exam date and time: 08/11/2020 2:33 PM Age: 65 years old Clinical indication: Patient HX: Covid unit. Sonu TECHNIQUE: Imaging protocol: Real-time ultrasound of the retroperitoneum with image documentation. Complete exam focused on the kidneys and bladder. COMPARISON: CT chest abd pel wo con 08/10/2020 11:17 AM FINDINGS: Right kidney: Normal. No stones. No hydronephrosis. 6.4 cm x 5.9 cm x 11.9 cm Left kidney: Normal. No stones. No hydronephrosis. Urinary bladder: Unremarkable. US/US renal BI* [id number] IMPRESSION: Unremarkable kidneys and bladder.
[2020-08-11 15:24] LABS: Lactate (Lactic Acid level) 2.3 mmol/L (0.5-2.2)
[2020-08-11 17:38] LABS: Quest SARS-CoV-2 RNA NOT DETECTED (NOT DETECTED)
[2020-08-11] MEDS: enoxaparin 40 mg/0.4 mL Syringe SUBCUT (19:10)
[2020-08-11] MEDS: potassium chloride ER 10 mEq Tablet PO (21:34)
[2020-08-11 23:14] LABS: Alanine Aminotransferase 119 U/L (0-41); Albumin Level 2.5 g/dL (3.5-5.2); Alkaline Phosphatase 228 IU/L (40-130); Anion Gap 27.2 (5-19); Aspartate Amino Transferase 277 U/L (0-40); Calcium 9.5 mg/dL (8.5-10.5); Carbon Dioxide 21 mmol/L (22-29); Chloride 90 mmol/L (98-107); Globulin 4.3 g/dL (1.3-4.6); Glomerular Filtration Rate 9.5 mL/min (90-130); Glucose 113 mg/dL (65-115); Potassium 5.2 mmol/L (3.5-5.1); Sodium 133 mmol/L (136-145); Total Bilirubin 1.5 mg/dL (0.15-1.2); Total Protein 6.8 g/dL (6.6-8.7); Uric Acid 15.4 mg/dL (3.4-7.0)
[2020-08-11 23:15] LABS: Ammonia 17 umol/L (16-60)
[2020-08-11 23:26] LABS: Osmolality Calculated 312 mOsm/kg (285-295)
[2020-08-11 23:29] LABS: Blood Urea Nitrogen 112 mg/dL (8-23); Creatine Phosphokinase 10702 U/L (39-308)
[2020-08-12] VITALS (9 sets, daily range): BP systolic 102–145; BP diastolic 60–75; PULSE 84–91; RESP 16–26; TEMP 36.6–37.3; O2SAT 91–96
[2020-08-12] MEDS: sodium chloride 0.9% 1,000 ML 75 ML IV ×2 (00:41→13:50)
[2020-08-12] MEDS: linezolid premix 600 MG/300 ML PREMIX 300 MG IV ×3 (00:42→23:12)
[2020-08-12 04:49] LABS: ABG PCO2 39.1 mmHg (35-45); ABG PH Result 7.38 (7.35-7.45); Base Excess ABG -1.9 mmol/L (-2.0-2.0); Blood Gas Allen Test Pos; Blood Gas Operator Identificat glc; Blood Gas Sample Site Radial, right; Blood Gas Sample Type Arterial; Oxygen Device BIPAP
[2020-08-12] MEDS: piperacillin-tazobactam 3.375 GM in sodium chloride 0.9% (plus) 50 ML IV ×3 (05:11→21:06)
--- NOTE | 2020-08-12 07:00 | XRR_ITS ---
PROCEDURE INFORMATION: Exam: XR Chest, 1 View Exam date and time: 08/12/2020 6:12 AM Age: 65 years old Clinical indication: Shortness of breath; Additional info: SOB TECHNIQUE: Imaging protocol: XR of the chest Views: Frontal portable semiupright view of the chest. COMPARISON: CR XR chest 1V portable [id number] 08/11/2020 11:27 AM FINDINGS: Lungs: Improved left basilar pulmonary partial atelectasis, with residual subsegmental atelectasis. The pulmonary vasculature is normal. Pleural space: No definite pleural effusion. No pneumothorax. Heart/Mediastinum: The heart is normal in size and contour. LPO rotation elongates the cardiac silhouette, exaggerating the heart size. Mediastinum: Stable. Bones/joints: Stable. XR/XR chest 1V portable [id number] IMPRESSION: Improved left basilar pulmonary partial atelectasis, with residual subsegmental atelectasis.
--- NOTE | 2020-08-12 07:55 | PM.PN ---
Subjective Subjective: Interval history: off BIPAP. reports left hip pain Medications: Reviewed: Yes Vitals/I&O/Wt Last Vital Signs Temp 99.1 F 08/12/20 04:00 Pulse 85 08/12/20 04:00 Resp 18 08/12/20 04:00 BP 103/67 08/12/20 04:00 Pulse Ox 94 08/12/20 04:00 08/11/20 08/12/20 08/12/20 22:59 06:59 14:59 Intake Total 1290 / 1860 50 / 1910 Balance 1290 / 1810 50 / 1860 Physical Exam Const: GENERAL APPEARANCE: comfortable NUTRITIONAL APPEARANCE: obese Extremity: GENERAL: Yes edema Urinary Catheter Management^: Flowers: Cath Placed During This Visit: yes, but has since been removed by the nurse Reason for Continuing Indwelling Catheter: Accurate Measurement of Urinary Output in Critically Ill Patients Urinary Catheter Date of Insertion: 08/05/20 Urinary Catheter Time of Insertion: 15:00 Date Urinary Catheter Removed: 08/09/20 Time Urinary Catheter Discontinued: 05:45 Data : 08/12/20 09:00 08/12/20 09:00 Other Labs: 7.38/39/101 on 30% BiPAP CK 10,257, + transaminitis, bili 1.6 uric acid 15 albumin 2.4, vanessa Ca 10.4, Phos 11.7, Mg 3.3 Micro: Microbiology 08/11/20 14:28 Blood Culture - Preliminary Blood SPECIMEN COLLECTED 08/11/20 14:28 Blood Culture - Preliminary Blood SPECIMEN COLLECTED 08/10/20 13:28 Blood Culture - Preliminary Blood NEGATIVE TO DATE 08/10/20 12:00 Urine Culture - Preliminary Urine Catheterized 08/10/20 10:56 Blood Culture - Preliminary Blood NEGATIVE TO DATE A&P Additional A&P Information Impression: 1. Acute oligoanuric kidney injury due to rhabdomyolysis 2. Osteomyelitis, L3/L4 3. Hyperuricemia, hyperphosphatemia, hypermagnesemia 4. Hyperkalemia, metabolic acidosis Recommendation: stop Kcl. Continue IVF, add oral sodium bicarbonate, one dose oral kayexylate. Low K diet. Begin renvela. Attestations Medical Necessity Statement*: critically ill Coding Level of Care Code Acute Golf Shoe Spike Assembler for Chg Fwd Exam Expanded Problem Focused
[2020-08-12 09:09] LABS: Basophils # 0.2 10^3/uL (0.0-0.1); Eosinophils # 0.5 10^3/uL (0.0-0.8); Eosinophils % 2.4 %; Hematocrit 32.2 % (42.0-52.0); Lymphocytes % 5.4 %; Mean Corpuscular HGB Conc 31.1 g/dL (30.0-36.0); Mean Corpuscular Hemoglobin 27.6 pg (28.0-34.0); Mean Platelet Volume 10.7 fL (7.4-10.4); Monocytes # 1.6 10^3/uL (0.2-0.9); Monocytes % 8.7 %; Neutrophils # 13.68 10^3/uL (1.8-7.7); Nucleated Red Blood Cells % 0 %; Platelet Count 495 10^3/cmm (130-400); Red Blood Count 3.62 10^6/uL (4.1-5.3); Red Cell Distribution Width 15.2 % (12.1-15.1); White Blood Count 18.6 10^3/uL (4.0-10.0)
[2020-08-12] MEDS: gabapentin 300 mg Capsule PO ×2 (09:14→17:58)
[2020-08-12] MEDS: famotidine 20 mg Tablet PO ×2 (09:14→17:58)
[2020-08-12] MEDS: amlodipine 5 mg Tablet 10 MG PO (09:14)
[2020-08-12 09:27] LABS: Lactate (Lactic Acid level) 1.1 mmol/L (0.5-2.2)
[2020-08-12 09:28] LABS: Neutrophils % 81.5 %
[2020-08-12 09:37] LABS: NT Pro B Type Natriuretic Pept 126 pg/mL (0-125); Procalcitonin 4.05 ng/mL (0-0.5)
[2020-08-12 09:37] LABS: ABG PCO2 37.4 mmHg (35-45); ABG PH Result 7.42 (7.35-7.45); Alveolar-Arterial Oxygen Gradi 16.3 mmHg (5-10); Arterial Blood Gas Hematocrit 35.8 % (42-52); Base Excess ABG -0.1 mmol/L (-2.0-2.0); Blood Gas Operator Identificat ED; Blood Gas Sample Site Brachial, left; Blood Gas Sample Type Arterial; Carboxyhemoglobin 0.8 %THgb (0.4-20.1); HCO3 ABG 24.2 mmol/L (22-26); HGB O2 Sat 97.9 % (95-100); Ionized Calcium Level - ABG 1.1 mmol/L (1.1-1.4); Methemoglobin 0.1 % (0.4-1.5); Oxygen Device BIPAP; Oxygen Saturation ABG 98.7; Potassium Level - ABG 4.9 mmol/L (3.5-5.0); Total Hemoglobin 11.7 g/dL (14-18)
[2020-08-12 09:50] LABS: Alanine Aminotransferase 118 U/L (0-41); Albumin Level 2.4 g/dL (3.5-5.2); Alkaline Phosphatase 224 IU/L (40-130); Anion Gap 28.4 (5-19); Aspartate Amino Transferase 295 U/L (0-40); Calcium 9.2 mg/dL (8.5-10.5); Carbon Dioxide 19 mmol/L (22-29); Chloride 93 mmol/L (98-107); Globulin 4.3 g/dL (1.3-4.6); Glomerular Filtration Rate 8.6 mL/min (90-130); Glucose 111 mg/dL (65-115); Magnesium 3.3 mg/dL (1.7-2.3); Potassium 5.4 mmol/L (3.5-5.1); Sodium 135 mmol/L (136-145); Total Bilirubin 1.6 mg/dL (0.15-1.2); Total Protein 6.7 g/dL (6.6-8.7)
[2020-08-12 10:04] LABS: C Reactive Protein 453.8 mg/L (0.0-4.9); Ferritin 1953 ng/mL (30-400); Osmolality Calculated 319 mOsm/kg (285-295)
[2020-08-12 10:06] LABS: Blood Urea Nitrogen 121 mg/dL (8-23); Creatine Phosphokinase 10257 U/L (39-308); Phosphorus 11.7 mg/dL (2.5-4.5)
[2020-08-12 10:10] LABS: D Dimer 11.94 ug/mIFEU (0-0.59)
[2020-08-12] MEDS: sodium polystyrene sulfonate 15 gm/60 mL Btl PO (11:20)
--- NOTE | 2020-08-12 12:05 | P.PN_ITS ---
Subjective Subjective: Interval history: no new complaints Medications: Reviewed: Yes Vitals/I&O/Wt Last Vital Signs Temp 97.9 F 08/12/20 08:00 Pulse 86 08/12/20 08:50 Resp 22 H 08/12/20 08:00 BP 122/65 08/12/20 08:00 Pulse Ox 96 08/12/20 08:50 08/11/20 08/12/20 08/12/20 22:59 06:59 14:59 Intake Total 1290 / 1860 350 / 2210 Balance 1290 / 1810 350 / 2160 Physical Exam Urinary Catheter Management^: Flowers: Cath Placed During This Visit: yes, but has since been removed by the nurse Reason for Continuing Indwelling Catheter: Accurate Measurement of Urinary Out put in Critically Ill Patients Urinary Catheter Date of Insertion: 08/05/20 Urinary Catheter Time of Insertion: 15:00 Date Urinary Catheter Removed: 08/09/20 Time Urinary Catheter Discontinued: 05:45 Data : 08/13/20 05:49 08/13/20 05:49 Other Labs: uric acid 16, phos 12.8, Mg 3.4, CK 4969 Micro: Microbiology 08/10/20 12:00 Urine Culture - Final Urine Catheterized 08/11/20 14:28 Blood Culture - Preliminary Blood SPECIMEN COLLECTED 08/11/20 14:28 Blood Culture - Preliminary Blood SPECIMEN COLLECTED 08/10/20 13:28 Blood Culture - Preliminary Blood NEGATIVE TO DATE 08/10/20 10:56 Blood Culture - Preliminary Blood NEGATIVE TO DATE A&P Additional A&P Information Impression: 1. Acute oligoanuric kidney injury due to rhabdomyolysis, urine output minimal, CK improving 2. Osteomyelitis, L3/L4, sepsis syndrome/DIC - all cultures neg to date 3. Hyperuricemia, hyperphosphatemia, hypermagnesemia 4. Hyperkalemia, metabolic acidosis Recommendation: Hemodialysis if patient is agreeable. Will treat K medically while awaiting dialysis catheter. Attestations Medical Necessity Statement*: critically ill Coding Level of Care Code Acute Hazardous Materials Tanker Driver for Corrie Ordonez
[2020-08-12 14:45] LABS: Amphetamines Screen Urine Negative (Negative); Barbiturates Screen Urine Negative (Negative); Benzodiazepines Screen Urine Negative (Negative); Cocaine Screen Urine Positive (Negative); Opiate Screen Urine Positive (Negative); PCP Screen Urine Negative (Negative); THC Screen Urine Negative (Negative)
[2020-08-12 14:59] LABS: Potassium, Radom Urine 77 mmol/L; Urine Creatinine 190 mg/dL (39-259); Urine Random Chloride 20 mmol/L; Urine Random Sodium 40 mmol/L
[2020-08-12 15:03] LABS: Eosinophil Urine No Eosinophils Seen; Urine Eosinophil Count 0 (0-0)
[2020-08-12 15:05] LABS: Urea Nitrogen,Urine Random 204 mg/dL
[2020-08-12] MEDS: sevelamer 800 mg Tablet PO (15:23)
[2020-08-12] MEDS: sodium bicarbonate 650 mg Tablet PO (15:23)
--- NOTE | 2020-08-12 15:42 | P.PN_ITS ---
Subjective Subjective: Interval history: This morning patient was examined, he is alert to person, place, not to time, is a bit more drowsy than usual, ABG does not show any significant hypercarbia or hypoxia, no febrile episodes overnight, no neck pain, no neck stiffness, his BUN is 121, could be having uremia symptoms, but is redirectable, does follow commands, and does squeeze on my fingers, does wiggle his toes, is in a lot of pain, has diffuse pain, his only complaint is his he is wondering if and when can he go home, but he was told in detail about his vertebral osteomyelitis and renal failure possibly requiring dialysis, he is a DNR/DNI, but did say that he wanted to have dialysis if that was required I also spoke spoke to patient's , advised patient of his clinical status, status is stable, prognosis is guarded, were concerned about worsening renal failure requiring dialysis, she agrees for temporary dialysis, but she is worried if he could handle dialysis, Vitals/I&O/Wt Last Vital Signs Temp 98.3 F 08/12/20 12:00 Pulse 89 08/12/20 12:00 Resp 16 08/12/20 12:00 BP 106/64 08/12/20 12:00 Pulse Ox 92 08/12/20 12:00 08/12/20 08/12/20 08/12/20 06:59 14:59 22:59 Intake Total 350 / 2210 1276.25 / 1276.25 Output Total Balance 350 / 2160 1251.25 / 1251.25 Physical Exam Narrative: EXAM NARRATIVE: Morbidly obese male Large pannus Const: COMMON NORMALS: no acute distress ORIENTATION/CONSCIOUSNESS: Yes awake, Yes oriented to person, Yes oriented to place and Yes confused; not oriented to time HENMT: COMMON NORMALS: normocephalic HEAD & SCALP: normocephalic Neck/C-Spine: COMMON NORMALS: no JVD Resp: COMMON NORMALS: normal respiratory effort, No retractions, No use of accessory muscles and clear to auscultation bilaterally AUSCULTATION: clear to auscultation bilaterally Cardio: COMMON NORMALS: no JVD, regular rate, regular rhythm, S1 normal heart sound present and S2 normal heart sound present RATE: regular rate RHYTHM: regular rhythm HEART SOUNDS: S1 normal heart sound present and S2 normal heart sound present GI: COMMON NORMALS: Normal to inspection, nondistended, normoactive bowel sounds present, Soft to palpation, non-tender, No hepatosplenomegaly present, no masses and no bruits PALPATION: Yes Soft to palpation and Yes No hepatosplenomegaly present Back/Pelvis: OTHER: Bilateral hips, pain with range of motion Extremity: COMMON NORMALS: capillary refill normal, no clubbing, cyanosis or edema and no calf tenderness NARRATIVE EXTREMITY EXAM: Diffuse anasarca Neuro: COMMON NORMALS: CN's II-XII intact bilaterally, moves all extremities and no focal motor deficits SENSORIUM/ORIENTATION: Yes oriented to person, Yes oriented to place and No oriented to time Psych: COMMON NORMALS: mental status grossly normal Urinary Catheter Management^: Flowers: Cath Placed During This Visit: yes, but has since been removed by the nurse Reason for Continuing Indwelling Catheter: Accurate Measurement of Urinary Output in Critically Ill Patients Urinary Catheter Date of Insertion: 08/05/20 Urinary Catheter Time of Insertion: 15:00 Date Urinary Catheter Removed: 08/09/20 Time Urinary Catheter Discontinued: 05:45 Data : 08/12/20 09:00 08/12/20 09:00 Micro: Microbiology 08/11/20 14:28 Blood Culture - Preliminary Blood NEGATIVE TO DATE 08/11/20 14:28 Blood Culture - Preliminary Blood NEGATIVE TO DATE 08/10/20 12:00 Urine Culture - Final Urine Catheterized 08/10/20 13:28 Blood Culture - Preliminary Blood NEGATIVE TO DATE 08/10/20 10:56 Blood Culture - Preliminary Blood NEGATIVE TO DATE A&P Assessment and plan (1) Vertebral osteomyelitis: -With sepsis -CT of abdomen pelvis shows:Lytic changes in the L3 and L4 vertebral bodies without adjacent inflammation. Indolent vertebral body osteomyelitis, metastatic disease or degenerative cystic changes in the vertebral bodies. -I went over CT scan findings with Dr. Cuellar, she feels that changes in vertebral bodies are likely related to osteomyelitis -Unfortunately patient cannot have a MRI given his body habitus -Unfortunate patient cannot have a CT-guided biopsy, due to his body habitus, difficulty accessing site -White blood cell count 19.1, ESR greater than 120, procalcitonin 4.76 -This is certainly a mixed picture, sepsis findings, given transaminitis, acute renal failure -Blood pressure normotensive, pulse 90, respiratory 18, temp 98.2, saturating 95% on room air -Lactic acid within normal limits Plan: -Continue neurochecks -Continue bariatric bed -Needs to get up out of bed into bariatric chair -Placed on broad-spectrum antibiotic therapy Zyvox and Zosyn -Follow blood cultures -Monitor clinical progress -If patient starts to clinically worsen, will consider transferring for higher level of care -DNR/DNI -Apparent for DVT prophylaxis -Patient was updated Status: Acute (2) Acute renal failure: -Etiology multifactorial's rhabdomyolysis and/or sepsis and or drug re action and/or dress syndrome -Patient did have 1 hypotensive episode yesterday afternoon, possibility to sepsis -Has not received any NSAIDs, is on lisinopril hydrochlorthiazide which has been held -Was on Lasix therapy -He does have a allergy to cephalexin, allergy unknown, patient is unsure what t he allergy is, could he possibly have dress syndrome, however does not have significant eosinophilia on CBC -We will hold allopurinol as associate with dress syndrome,, Denis Diogo syndrome -CPK and uric acid are pending -CT scan of the abdomen pelvis does not show any significant obstructive uro mitchell, or kidney stone, but it was a difficult study -Urine output 50 cc, cr 6.5 Plan: -Continue gentle IV hydration -Nephrology on consult -Urine studies ordered -Peripheral smear -Trend CPK and uric acids -Urine output remains minimal Status: Acute (3) RLL pneumonia: Initially on chest x-ray patient was noted to have right lower lobe pneumonia for which she received treatment with ceftriaxone and azithromycin. CT chest negative for consolidative process Status: Acute (4) Hypertension: -Continue Norvasc to 10 mg daily -Discontinue lisinopril given creatinine increased to 2.2 This is currently well controlled Status: Inactive (5) Diastolic CHF: -Cardiac echocardiogram pending -d/c lasix , monitor urine output closely, Flowers catheter Status: Acute (6) Gout: Continue allopurinol Status: Acute (7) Bilateral lower extremity edema: Minimal today Status: Acute (8) Morbid obesity with BMI of 60.0-69.9, adult: Needs to follow-up with bariatric clinic, needs to be motivated to lose weight Status: Acute (9) Difficulty in walking: PT OT, however states unable to participate due to weakness Status: Acute (10) Bilateral primary osteoarthritis of hip: PT OT, pain control Status: Acute (11) HLD (hyperlipidemia): Continue simvastatin Status: Acute (12) Unable to ambulate: PT OT Status: Acute (13) Intractable pain: -Has some calf pain bilaterally, lower extremity Doppler negative for DVT Status: Acute (14) Sepsis: Status: Acute (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 -From allopurinol versus ceftriaxone -With transaminitis, acute renal failure, multiorgan dysfunction, I cannot see a rash -We will start him on Solu-Medrol 250 every 24 hours Status: Acute (16) Encephalopathy: -A bit confused this morning, alert oriented x2, cranial nerves II to XII grossly intact, follows commands -ABG did not show any significant hypoxia or hypercarbia -I did place him on BiPAP overnight -The question is does he have meningitis in addition to vertebral osteomyelitis as the below, does not have any neck pain, no neck stiffness, no fevers, no nausea, vomiting, blurry vision, but will monitor closely -Neurochecks -Patient does have significant uremia, BUN 121, could have uremic encephalopathy -Septic encephalopathy Status: Acute (17) Rhabdomyolysis: -Etiology of rhabdomyolysis is uncertain, patient has been immobile, in bed, been laying on his back, area vertebral osteomyelitis as a possible etiology -Certainly compartment syndrome could be an etiology -We will obtain a CT of his pelvis, ct cervical spine Status: Acute (18) Hyperuricemia: Status: Acute (19) Transaminitis: Status: Acute Additional A&P Information Dvt ppx: lovenox Dispo: Likely requires [facility] Attestations Medical Necessity Statement*: Patient requires hospitalization, for vertebral osteomyelitis with sepsis, dress syndrome, acute renal failure, transaminitis Coding Level of Care Code Acute Infectious Disease Physician for [facility] Fwd Diagnoses Vertebral osteomyelitis M46.20 Acute renal failure N17.9 RLL pneumonia J18.9 Hypertension I10 Diastolic CHF I50.30 Gout M10.9 Bilateral lower extremity edema R60.0 Morbid obesity with BMI of 60.0-69.9, adult E66.01; Z68.44 Difficulty in walking R26.2 Bilateral primary osteoarthritis of hip M16.0 HLD (hyperlipidemia) E78.5 Unable to ambulate R26.2 Intractable pain R52 Sepsis A41.9 DRESS syndrome D72.12; T50.905A Encephalopathy G93.40 Rhabdomyolysis M62.82 Hyperuricemia E79.0 Transaminitis R74.01
--- NOTE | 2020-08-12 15:50 | CTR_ITS ---
PROCEDURE INFORMATION: Exam: CT Cervical Spine Without Contrast Exam date and time: 08/12/2020 1:55 PM Age: 65 years old Clinical indication: Neck pain; Patient HX: C/O diffuse musculoskeletal pain; Additional info: Osteomyelitis? TECHNIQUE: Imaging protocol: Computed tomography images of the cervical spine without contrast. Radiation optimization: All CT scans at this facility use at least one of these dose optimization techniques: automated exposure control; mA and/or kV adjustment per patient size (includes targeted exams where dose is matched to clinical indication); or iterative reconstruction. COMPARISON: No relevant prior studies available. RADIATION DOSE METRICS: Total DLP (mGy-cm): 1304.68 FINDINGS: Bones/joints: There is degenerative change in the cervical spine with small anterior osteophytes at C4-C5 and severe narrowing of the C5-C6 and C6-C7 with anterior and posterior osteophytes. No fracture is identified. No lytic or destructive lesion is seen in the cervical spine. Discs/Spinal canal/Neural foramina: There is some uncovertebral hypertrophy with posterior spurring which encroaches upon neural foramina bilaterally at C5-C6 and C6-C7 but more on the left than on the right. Lungs: Lung apices are normal. Soft tissues: The prevertebral soft tissues are unremarkable. CT/CT cervical spin wo con* [id number] IMPRESSION: Degenerative changes in the cervical spine as described. There is no fracture or destructive lesion. Radiation Dose CTDIVOL = (mGy): DLP = 1304.68 (mGy-cm)
--- NOTE | 2020-08-12 15:50 | CTR_ITS ---
PROCEDURE INFORMATION: Exam: CT Right Lower Extremity Without Contrast, Hip Exam date and time: 08/12/2020 1:55 PM Age: 65 years old Clinical indication: Hip; Right; Patient HX: C/O diffuse musculoskeletal pain; Additional info: Hip pain TECHNIQUE: Imaging protocol: CT of the Right lower extremity without contrast was performed. Exam focused on the hip. Radiation optimization: All CT scans at this facility use at least one of these dose optimization techniques: automated exposure control; mA and/or kV adjustment per patient size (includes targeted exams where dose is matched to clinical indication); or iterative reconstruction. COMPARISON: CT chest abd pel wo con 08/10/2020 11:17 AM RADIATION DOSE METRICS: Total DLP (mGy-cm): 1892.42 FINDINGS: Bones/joints: There is mild axial joint space narrowing. Bones of the right hip are intact without evidence of fracture, or dislocation. There is a small sclerotic density in the right superior pubic ramus in keeping with small benign bone island. Soft tissues: Soft tissue structures including the muscles are unremarkable other than muscular atrophy. Vasculature: There is some focal atherosclerotic plaque in the right common femoral artery. CT/CT hip RT wo con* [id number] IMPRESSION: Basically unremarkable CT scan of the right hip. Radiation Dose CTDIVOL = (mGy): DLP = 1892.42 (mGy-cm)
--- NOTE | 2020-08-12 15:50 | CTR_ITS ---
PROCEDURE INFORMATION: Exam: CT Left Lower Extremity Without Contrast, Hip Exam date and time: 08/12/2020 1:55 PM Age: 65 years old Clinical indication: Hip; Left; Patient HX: C/O diffuse musculoskeletal pain; Additional info: Hip pain TECHNIQUE: Imaging protocol: CT of the Left lower extremity without contrast was performed. Exam focused on the hip. Radiation optimization: All CT scans at this facility use at least one of these dose optimization techniques: automated exposure control; mA and/or kV adjustment per patient size (includes targeted exams where dose is matched to clinical indication); or iterative reconstruction. COMPARISON: CT chest abd pel wo con 08/10/2020 11:17 AM RADIATION DOSE METRICS: Total DLP (mGy-cm): 2108.78 FINDINGS: Bones/joints: There is advanced osteoarthritis of the left hip with severe joint space narrowing with [id number] contact and cystic degenerative change of the acetabulum and femoral head. There are prominent marginal osteophytes. The coronal view demonstrates severe flattening remodeling of the left femoral head. Soft tissues: There is generalized muscular atrophy. CT/CT hip LT wo con* [id number] IMPRESSION: Severe osteoarthritis of the left hip. Radiation Dose CTDIVOL = (mGy): DLP = 2108.78 (mGy-cm)
[2020-08-12] MEDS: heparin 5,000 unit/mL INJ 1 mL 5000 UNIT SUBCUT (16:42)
[2020-08-13] VITALS (7 sets, daily range): BP systolic 116–148; BP diastolic 69–76; PULSE 75–82; RESP 16–24; TEMP 36.4–36.7; O2SAT 93–98
[2020-08-13] MEDS: sodium chloride 0.9% 1,000 ML 75 ML IV ×2 (03:22→21:01)
[2020-08-13] MEDS: piperacillin-tazobactam 3.375 GM in sodium chloride 0.9% (plus) 50 ML IV ×2 (05:53→18:38)
[2020-08-13] MEDS: heparin 5,000 unit/mL INJ 1 mL 5000 UNIT SUBCUT (05:54)
[2020-08-13 06:38] LABS: INR 1.19 (0.8-1.2)
[2020-08-13 06:39] LABS: Partial Thromboplastin Time 31.2 SECONDS (23.9-36.7)
[2020-08-13 06:46] LABS: Fibrinogen 1510 mg/dL (174-498)
[2020-08-13 06:49] LABS: D Dimer 9.75 ug/mIFEU (0-0.59)
[2020-08-13 07:05] LABS: NT Pro B Type Natriuretic Pept 545 pg/mL (0-125); Procalcitonin 3.13 ng/mL (0-0.5)
[2020-08-13 07:16] LABS: Magnesium 3.4 mg/dL (1.7-2.3)
[2020-08-13 07:31] LABS: Basophils # 0.1 10^3/uL (0.0-0.1); Basophils % 0.5 %; Eosinophils % 0.1 %; Hematocrit 34.5 % (42.0-52.0); Hemoglobin 10.4 g/dL (11.7-16.6); Lymphocytes # 0.6 10^3/uL (0.8-4.8); Lymphocytes % 3.8 %; Mean Corpuscular HGB Conc 30.1 g/dL (30.0-36.0); Mean Corpuscular Hemoglobin 27.2 pg (28.0-34.0); Mean Corpuscular Volume 90.3 fL (80-94); Monocytes # 0.2 10^3/uL (0.2-0.9); Monocytes % 1.1 %; Neutrophils # 14.63 10^3/uL (1.8-7.7); Nucleated Red Blood Cells % 0 %; Platelet Count 501 10^3/cmm (130-400); Red Blood Count 3.82 10^6/uL (4.1-5.3); Red Cell Distribution Width 14.9 % (12.1-15.1); White Blood Count 16.7 10^3/uL (4.0-10.0)
[2020-08-13 07:42] LABS: Neutrophils % 94.3 %
[2020-08-13 08:06] LABS: Ferritin 2336 ng/mL (30-400)
[2020-08-13 08:08] LABS: Creatine Phosphokinase 4969 U/L (39-308); Phosphorus 12.8 mg/dL (2.5-4.5)
[2020-08-13 08:47] LABS: Lactate (Lactic Acid level) 0.7 mmol/L (0.5-2.2)
[2020-08-13] MEDS: amlodipine 5 mg Tablet 10 MG PO (09:18)
[2020-08-13] MEDS: sodium bicarbonate 650 mg Tablet PO ×3 (09:18→21:00)
[2020-08-13] MEDS: famotidine 20 mg Tablet PO ×2 (09:18→18:38)
[2020-08-13] MEDS: sevelamer 800 mg Tablet PO ×3 (09:18→21:00)
[2020-08-13] MEDS: gabapentin 300 mg Capsule PO (09:18)
[2020-08-13 10:35] LABS: Glucose Point of Care 181 mg/dL (70-110)
[2020-08-13] MEDS: linezolid premix 600 MG/300 ML PREMIX 300 MG IV ×2 (10:43→22:38)
[2020-08-13 12:11] LABS: Alanine Aminotransferase 135 U/L (0-41); Albumin Level 2.5 g/dL (3.5-5.2); Alkaline Phosphatase 326 IU/L (40-130); Aspartate Amino Transferase 261 U/L (0-40); Carbon Dioxide 16 mmol/L (22-29); Chloride 89 mmol/L (98-107); Globulin 4.8 g/dL (1.3-4.6); Glomerular Filtration Rate 7.5 mL/min (90-130); Glucose 198 mg/dL (65-115); Sodium 132 mmol/L (136-145); Total Bilirubin 1.1 mg/dL (0.15-1.2); Total Protein 7.3 g/dL (6.6-8.7)
[2020-08-13 12:27] LABS: C Reactive Protein 425.9 mg/L (0.0-4.9); Osmolality Calculated 324 mOsm/kg (285-295)
[2020-08-13 12:28] LABS: Anion Gap 32.8 (5-19); Potassium 5.8 mmol/L (3.5-5.1)
[2020-08-13 12:33] LABS: Blood Urea Nitrogen 138 mg/dL (8-23)
--- NOTE | 2020-08-13 13:38 | DCPLANNER ---
Updated Pg 2 of IM with pt's spouse who is in the room via the phone. Nursing had taken a copy of the IM to her. No questions.
[2020-08-13] MEDS: insulin regular-human 10 UNIT in SYRINGE 1 EACH IVP (15:22)
[2020-08-13] MEDS: dextrose 50% syringe 50 mL IVP (15:22)
[2020-08-13] MEDS: sodium polystyrene sulfonate 15 gm/60 mL Btl PO (15:23)
[2020-08-13] MEDS: HYDROcodone-acetaminophen 5-325 mg Tablet 1 TAB PO (15:41)
--- NOTE | 2020-08-13 15:56 | P.PN_ITS ---
Subjective Subjective: Interval history: This morning patient was examined, he is much more alert, awake, answers questions appropriately, he has no complaints this morning, his joint pains are improved, his is at bedside, I had an extensive discussion with patient and about the risks and benefits of dialysis and dialysis catheter placement, they voiced understanding, all questions answered, agreed to dialysis catheter placement Vitals/I&O/Wt Last Vital Signs Temp 98.0 F 08/13/20 12:00 Pulse 76 08/13/20 12:00 Resp 18 08/13/20 12:00 BP 119/69 08/13/20 12:00 Pulse Ox 96 08/13/20 12:00 08/13/20 08/13/20 08/13/20 06:59 14:59 22:59 Intake Total 1350 / 2976.25 Balance 1350 / 2926.25 Physical Exam Narrative: EXAM NARRATIVE: Morbidly obese male Large pannus Const: COMMON NORMALS: no acute distress and patient oriented x3 HENMT: COMMON NORMALS: normocephalic HEAD & SCALP: normocephalic Neck/C-Spine: COMMON NORMALS: no JVD Resp: COMMON NORMALS: normal respiratory effort, No retractions, No use of accessory muscles and clear to auscultation bilaterally AUSCULTATION: clear to auscultation bilaterally Cardio: COMMON NORMALS: no JVD, regular rate, regular rhythm, S1 normal heart sound present and S2 normal heart sound present RATE: regular rate RHYTHM: regular rhythm HEART SOUNDS: S1 normal heart sound present and S2 normal heart sound present GI: COMMON NORMALS: Normal to inspection, nondistended, normoactive bowel sounds present, Soft to palpation, non-tender, No hepatosplenomegaly present, no masses and no bruits PALPATION: Yes Soft to palpation and Yes No hep atosplenomegaly present Extremity: COMMON NORMALS: capillary refill normal, no clubbing, cyanosis or edema, no calf tenderness and no pedal edema NARRATIVE EXTREMITY EXAM: Diffuse anasarca Neuro: COMMON NORMALS: patient oriented x3 Psych: COMMON NORMALS: mental status grossly normal Urinary Catheter Management^: Flowers: Cath Placed During This Visit: yes, but has since been removed by the nurse Reason for Continuing Indwelling Catheter: Accurate Measurement of Urinary Output in Critically Ill Patients Urinary Catheter Date of Insertion: 08/05/20 Urinary Catheter Time of Insertion: 15:00 Date Urinary Catheter Removed: 08/09/20 Time Urinary Catheter Discontinued: 05:45 Data : 08/13/20 05:49 08/13/20 05:49 Micro: Microbiology 08/11/20 14:28 Blood Culture - Preliminary Blood NEGATIVE TO DATE 08/11/20 14:28 Blood Culture - Preliminary Blood NEGATIVE TO DATE A&P Assessment and plan (1) Vertebral osteomyelitis: -With sepsis -CT of abdomen pelvis shows:Lytic changes in the L3 and L4 vertebral bodies without adjacent inflammation. Indolent vertebral body osteomyelitis, metastatic disease or degenerative cystic changes in the vertebral bodies. -CT-of the cervical spine does not show any significant osteomyelitis -I went over CT scan findings with Dr. Cuellar, she feels that changes in vertebral bodies are likely related to osteomyelitis -Unfortunately patient cannot have a MRI given his body habitus -Unfortunate patient cannot have a CT-guided biopsy, due to his body habitus, difficulty accessing site -White blood cell count 19.1, ESR greater than 120, procalcitonin 4.76 -This is certainly a mixed picture, sepsis findings, given transaminitis, acute renal failure -Blood pressure normotensive, pulse 90, respiratory 18, temp 98.2, saturating 95% on room air -Lactic acid within normal limits Plan: -Continue neurochecks -Continue bariatric bed -Needs to get up out of bed into bariatric chair -Placed on broad-spectrum antibiotic therapy Zyvox and Zosyn -Follow blood cultures -Monitor clinical progress -If patient starts to clinically worsen, will consider transferring for higher level of care -DNR/DNI Heparin for DVT prophylaxis -Patient was updated Status: Acute (2) Acute renal failure: -Etiology multifactorial's rhabdomyolysis and/or sepsis and or drug reaction and/or dress syndrome -Has not received any NSAIDs, is on lisinopril hydrochlorthiazide which has been held -Was on Lasix therapy -He does have a allergy to cephalexin, allergy unknown, patient is unsure what the allergy is, could he possibly have dress syndrome, however does not have significant eosinophilia on CBC -We will hold allopurinol as associate with dress syndrome,, Denis Diogo syndrome -CPK and uric acid are pending -CT scan of the abdomen pelvis does not show any significant obstructive uropathy, or kidney stone, but it was a difficult study -Urine output 50 cc, cr 7.3, Plan: -Continue gentle IV hydration -Nephrology on consult -Urine studies ordered -Peripheral smear -Trend CPK and uric acids -Urine output remains minimal -Dr. Chino on consult -Dialysis catheter placement -Possible dialysis tomorrow -On Renvela, sodium bicarb Status: Acute (3) RLL pneumonia: Initially on chest x-ray patient was noted to have right lower lobe pneumonia for which she received treatment with ceftriaxone and azithromycin. CT chest negative for consolidative process Status: Acute (4) Hypertension: -Continue Norvasc to 10 mg daily -Discontinue lisinopril given creatinine increased to 2.2 This is currently well controlled Status: Inactive (5) Diastolic CHF: -Cardiac echocardiogram pending -d/c lasix , monitor urine output closely, Flowers catheter Status: Acute (6) Gout: Continue allopurinol Status: Acute (7) Bilateral lower extremity edema: Minimal today Status: Acute (8) Morbid obesity with BMI of 60.0-69.9, adult: Needs to follow-up with bariatric clinic, needs to be motivated to lose weight Status: Acute (9) Difficulty in walking: PT OT, however states unable to participate due to weakness Status: Acute (10) Bilateral primary osteoarthritis of hip: PT OT, pain control Status: Acute (11) HLD (hyperlipidemia): Continue simvastatin Status: Acute (12) Unable to ambulate: PT OT Status: Acute (13) Intractable pain: -Has some calf pain bilaterally, lower extremity Doppler negative for DVT Status: Acute (14) Sepsis: Status: Acute (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 -From allopurinol versus ceftriaxone -With transaminitis, acute renal failure, multiorgan dysfunction, I cannot see a rash -Continue Solu-Medrol 250 every 24 hours Status: Acute (16) Encephalopathy: -Much more alert, awake, oriented x3, at bedside, following all commands, cranial nerves II to XII grossly intact -ABG did not show any significant hypoxia or hypercarbia -Continue BiPAP overnight -The question is does he have meningitis in addition to vertebral osteomyelitis as the below, does not have any neck pain, no neck stiffness, no fevers, no nausea, vomiting, blurry vision, but will monitor closely -Neurochecks -Patient does have significant uremia, BUN 121, could have uremic encephalopathy component -Septic encephalopathy Status: Acute (17) Rhabdomyolysis: -Etiology of rhabdomyolysis is uncertain, patient has been immobile, in bed, been laying on his back, area vertebral osteomyelitis as a possible etiology -Certainly compartment syndrome could be an etiology -We will obtain a CT of his pelvis did show severe left hip osteoarthritis, no significant evidence of compartment syndrome Status: Acute (18) Hyperuricemia: Status: Acute (19) Transaminitis: Status: Acute Additional A&P Information Dvt ppx: lovenox Patient is a DNR/DNI Dispo: Likely requires senior living facility placement Attestations Medical Necessity Statement*: She requires hospitalization for acute renal failure, vertebral osteomyelitis Coding Level of Care Code Acute Servomechanism Designer for g Fwd Diagnoses Vertebral osteomyelitis M46.20 Acute renal failure N17.9 RLL pneumonia J18.9 Hypertension I10 Diastolic CHF I50.30 Gout M10.9 Bilateral lower extremity edema R60.0 Morbid obesity with BMI of 60.0-69.9, adult E66.01; Z68.44 Difficulty in walking R26.2 Bilateral primary osteoarthritis of hip M16.0 HLD (hyperlipidemia) E78.5 Unable to ambulate R26.2 Intractable pain R52 Sepsis A41.9 DRESS syndrome D72.12; T50.905A Encephalopathy G93.40 Rhabdomyolysis M62.82 Hyperuricemia E79.0 Transaminitis R74.01
--- NOTE | 2020-08-13 16:58 | PM.CONSULT ---
Providers/Reason For Consult Consulting Physican/Specialty*: General Surgery Eddie Chino MD Reason for Consult*: Requesting hemodialysis catheter placement. Attending Physician: Tremaine Ferrari MD History of Present Illness History of Present Illness Ceferino Rodarte is a 65 year old male admitted a little over a week ago with original complaints of bilateral lower extremity edema with difficulty ambulating, weakness, shoulder pain, etc. He has had progressive issues with renal function and the motors and generators inspector has recommended hemodialysis. The patient denies any upper chest injury in the past. He does not recall ever having a central line in place before. Review of Systems GI: Denies: abdominal pain Meds/Allergies Home Medications and Allergies Home Medications Medication Instructions Recorded Confirmed Last Taken Type cyclobenzaprine 10 mg tablet 10 mg PO DAILY@08 tab 07/28/20 08/04/20 08/04/20 History furosemide 40 mg tablet 40 mg PO DAILY@13 07/28/20 08/04/20 08/04/20 History hydrocodone 5 mg-acetaminophen 325 1 tab PO Q6H PRN 07/28/20 08/04/20 08/04/20 History mg tablet simvastatin 10 mg tablet 10 mg PO DAILY@20 07/28/20 08/04/20 08/03/20 History allopurinol 200 mg PO DAILY@20 08/04/20 08/04/20 08/03/20 History lisinopril-hydrochlorothiazide 2 tab PO DAILY@08 08/04/20 08/04/20 08/04/20 History potassium chloride 10 meq PO DAILY@20 08/04/20 08/04/20 08/03/20 History amlodipine 10 mg PO DAILY@08 #0 tab 08/09/20 08/04/20 08/04/20 Rx amlodipine 10 mg PO DAILY@08 30 Days tab 08/09/20 Unknown Rx famotidine 20 mg PO BID 30 Days #60 tab 08/09/20 Unknown Rx gabapentin 300 mg PO BID 30 Days #60 cap 08/09/20 Unknown Rx Allergies Allergy/AdvReac Type Severity Reaction Status Date / Time cephalexin [From Keflex] Allergy Unknown Verified 08/04/20 10:15 paper tapre Allergy Unknown Uncoded 08/04/20 10:15 Current Medications Current Medications Generic Name Dose Route Start Last Admin Trade Name Freq PRN Reason Stop Dose Admin Hydrocodone Bitart/Acetaminophen 1 tab 08/10/20 15:11 08/13/20 15:41 Hydrocodone-Acetaminophen 5-325 Mg Tablet PO 1 tab Q4H PRN Administration MODERATE PAIN Allopurinol 200 mg 08/04/20 20:00 08/10/20 22:23 Allopurinol 100 Mg Tablet PO 200 mg DAILY@20 INA Administration Atorvastatin Calcium 20 mg 08/04/20 20:00 08/09/20 20:37 Atorvastatin 40 Mg Tablet PO 20 mg DAILY@20 INA Administration Famotidine 20 mg 08/04/20 18:00 08/13/20 09:18 Famotidine 20 Mg Tablet PO 20 mg BID INA Administration Gabapentin 300 mg 08/07/20 09:40 08/13/20 09:18 Gabapentin 300 Mg Capsule PO 300 mg BID INA Administration Heparin Sodium (Beef Lung) 5,000 unit 08/12/20 17:00 08/13/20 05:54 Heparin 5,000 Unit/Ml Inj 1 Ml SUBCUT 5,000 unit Q12H INA Administration Sodium Chloride 1,000 mls @ 75 mls/hr 08/11/20 07:30 08/13/20 03:22 Sodium Chloride 0.9% IV 75 mls/hr .[id number] INA Administration Linezolid 600 mg in 300 mls @ 300 mls/hr 08/11/20 11:00 08/13/20 10:43 Zyvox Premix IV 300 mls/hr Q12H INA Administration Protocol Methylprednisolone Sodium Succinate 250 mg 08/12/20 15:30 08/13/20 15:23 Methylprednisolone Sod Succ 125 Mg/2 Ml Inj IVP 250 mg Q24H INA Administration Sevelamer Carbonate 800 mg 08/12/20 15:00 08/13/20 15:23 Sevelamer 800 Mg Tablet PO 800 mg TID INA Administration Sodium Bicarbonate 650 mg 08/12/20 15:00 08/13/20 15:23 Sodium Bicarbonate 650 Mg Tablet PO 650 mg TID INA Administration PFSH Acute PFSH: Medical History (Updated 08/12/20 @ 15:58 by Tremaine Ferrari MD) Arthritis Bilateral primary osteoarthritis of hip Diastolic CHF Gout HLD (hyperlipidemia) Hypertension Surgical History (Updated 08/04/20 @ 15:08 by Tremaine Ferrari MD) H/O vein stripping H/O ventral hernia repair Family History (Updated 08/04/20 @ 15:09 by Tremaine Ferrari MD) Father CAD (coronary artery disease) Mother Aspiration pneumonia Social History (Updated 07/28/20 @ 10:07 by Nicholas Jaimes LPN) Smoking and tobacco status: never smoked Alcohol intake: never Current occupational status: retired Vitals/I&O/Wt Last Vital Signs Temp 98.0 F 08/13/20 16:00 Pulse 76 08/13/20 16:00 Resp 18 08/13/20 16:00 BP 148/74 08/13/20 16:00 Pulse Ox 93 08/13/20 16:00 08/13/20 08/13/20 08/13/20 06:59 14:59 22:59 Intake Total 1350 / 2976.25 100 / 100 Balance 1350 / 2926.25 100 / 100 Physical Exam Narrative: EXAM NARRATIVE: The patient was encountered in his hospital room. He does not appear to be in any distress. He is morbidly obese. The pupils seem equal. No carotid bruits are heard. The lungs are clear anteriorly. The heart seems regular. The clavicles are palpable but not visible. The neck is very short. The abdomen is morbidly obese but is nontender. The patient has some lower extremity edema with the left lower extremity being slightly more edematous than the right. He has chronic venous stasis changes present. Urinary Catheter Management^: Flowers: Cath Placed During This Visit: yes, but has since been removed by the nurse Reason for Continuing Indwelling Catheter: Accurate Measurement of Urinary Output in Critically Ill Patients Urinary Catheter Date of Insertion: 08/05/20 Urinary Catheter Time of Insertion: 15:00 Date Urinary Catheter Removed: 08/09/20 Time Urinary Catheter Discontinued: 05:45 Data Micro: Micro: Microbiology 08/11/20 14:28 Blood Culture - Pr eliminary Blood NEGATIVE TO UGO E 08/11/20 14:28 Blood Culture - Pr eliminary Blood NEGATIVE TO UGO E A&P Assessment and plan (1) Acute renal failure: I have discussed hemodialysis catheters with the patient in some detail. Surgical risks of placement including bleeding, infection, internal organ injury, pneumothorax, etc. were all gone over. The patient seems to understand and is agreeable to proceeding with hemodialysis catheter placement. I will make the patient n.p.o. after midnight. I will hold his subcutaneous heparin after tonight's dose in preparation for surgery tomorrow morning. Status: Acute Consult Attestations Medical Necessity Statement: See admitting service's notation. Coding Level of Care Code Acute Mental Health Consultant for Corrie Ordonez Diagnoses Acute renal failure N17.9
[2020-08-13 17:03] LABS: Glucose Point of Care 256 mg/dL (70-110)
[2020-08-13 20:58] LABS: Glucose Point of Care 237 mg/dL (70-110)
[2020-08-14] VITALS (16 sets, daily range): BP systolic 112–144; BP diastolic 61–90; PULSE 68–84; RESP 13–20; TEMP 36.1–36.6; O2SAT 93–97
[2020-08-14 05:01] LABS: Basophils # 0.1 10^3/uL (0.0-0.1); Basophils % 0.3 %; Eosinophils % 0.1 %; Hematocrit 31.9 % (42.0-52.0); Hemoglobin 10.1 g/dL (11.7-16.6); Lymphocytes # 0.8 10^3/uL (0.8-4.8); Lymphocytes % 4.2 %; Mean Corpuscular HGB Conc 31.7 g/dL (30.0-36.0); Mean Corpuscular Hemoglobin 27.7 pg (28.0-34.0); Mean Corpuscular Volume 87.4 fL (80-94); Mean Platelet Volume 10.8 fL (7.4-10.4); Monocytes # 0.6 10^3/uL (0.2-0.9); Monocytes % 3.2 %; Neutrophils # 16.65 10^3/uL (1.8-7.7); Neutrophils % 86.9 %; Nucleated Red Blood Cells % 0 %; Platelet Count 578 10^3/cmm (130-400); Red Blood Count 3.65 10^6/uL (4.1-5.3); Red Cell Distribution Width 14.8 % (12.1-15.1); White Blood Count 19.2 10^3/uL (4.0-10.0)
[2020-08-14 05:25] LABS: Lactate (Lactic Acid level) 1.4 mmol/L (0.5-2.2)
[2020-08-14] MEDS: piperacillin-tazobactam 3.375 GM in sodium chloride 0.9% (plus) 50 ML IV ×2 (05:26→17:41)
[2020-08-14 05:35] LABS: NT Pro B Type Natriuretic Pept 1047 pg/mL (0-125)
[2020-08-14 05:38] LABS: INR 1.13 (0.8-1.2)
[2020-08-14 05:39] LABS: Partial Thromboplastin Time 30.8 SECONDS (23.9-36.7)
[2020-08-14 05:46] LABS: Alanine Aminotransferase 120 U/L (0-41); Albumin Level 2.3 g/dL (3.5-5.2); Alkaline Phosphatase 278 IU/L (40-130); Anion Gap 31.5 (5-19); Aspartate Amino Transferase 157 U/L (0-40); C Reactive Protein 245.2 mg/L (0.0-4.9); Carbon Dioxide 16 mmol/L (22-29); Chloride 87 mmol/L (98-107); Globulin 4.6 g/dL (1.3-4.6); Glomerular Filtration Rate 7.3 mL/min (90-130); Glucose 225 mg/dL (65-115); Magnesium 3.5 mg/dL (1.7-2.3); Potassium 5.5 mmol/L (3.5-5.1); Sodium 129 mmol/L (136-145); Total Bilirubin 0.8 mg/dL (0.15-1.2); Total Protein 6.9 g/dL (6.6-8.7); Uric Acid 14.9 mg/dL (3.4-7.0)
[2020-08-14 05:47] LABS: Fibrinogen 1189 mg/dL (174-498)
[2020-08-14 05:54] LABS: D Dimer 7.79 ug/mIFEU (0-0.59)
[2020-08-14 06:02] LABS: ABG PCO2 34.5 mmHg (35-45); ABG PH Result 7.32 (7.35-7.45); Arterial Blood Gas Hematocrit 33.8 % (42-52); Base Excess ABG -7.6 mmol/L (-2.0-2.0); Blood Gas Allen Test Pos; Blood Gas Sample Type Arterial; HCO3 ABG 17.7 mmol/L (22-26); PO2 ABG 77.3 mmHg (80.0-100.0)
[2020-08-14 06:05] LABS: Blood Gas Sample Site Radial, left
[2020-08-14 06:06] LABS: Osmolality Calculated 332 mOsm/kg (285-295)
[2020-08-14 06:08] LABS: Blood Urea Nitrogen 172 mg/dL (8-23); Creatine Phosphokinase 2797 U/L (39-308); Phosphorus 11.9 mg/dL (2.5-4.5)
[2020-08-14 06:15] LABS: Slide Review Slide Review Perform
[2020-08-14 07:08] LABS: Glucose Point of Care 202 mg/dL (70-110)
--- NOTE | 2020-08-14 08:06 | ANES.PREANE2 ---
Pre-Anesthetic Assessment Pre-Anesthetic Assessment: Height/Weight: Height 1.73 m Weight 181.437 kg Temp Pulse Resp BP Pulse Ox 97.5 F L 74 16 118/73 95 08/14/20 04:00 08/14/20 06:08 08/14/20 06:08 08/14/20 04:00 08/14/20 06:08 Proposed Procedure: Operation Date: 08/14/20 08:20 Proposed Procedures p Dialysis Catheter Insertion(Not Applicable) - Eddie Chino MD Was Beta Dayo taken within 24 hours: N/A Last intake: Intake Last Liquid Date 08/14/20 Last Liquid Time 00:00 Last Solid Date 08/14/20 Last Solid Time 00:00 Social: Social History: No alcohol and No tobacco Exam: Pre-Anes Outpt Exam: alert, oriented x 3, clear to auscultation bilaterally and regular rate & rhythm Additional Exam Findings (including area of procedure): Decreased BS Airway: Submandibular: WNL Cervical ROM: WNL MP: 2 Dentition: Full Pulmonary: Pulmonary: Sleep apnea CV/HEM: CV/HEM: Anemia and CHF : : Chronic renal failuer Hepatic: Hepatic: None reported GI: GI: GERD Metabolic: Metabolic: Morbid obesity Musc/skel: Musc/skel: OA/DJD and Weakness Comments: Poor mobility Neuropsych: Neuropsych: None reported Anesthetic Plan: ASA status: 4 Anesthesia: General Risk of > 500 ml blood loss (7ml/kg in children): No Meds/Allergies Current Medications: Current Medications Generic Name Dose Route Start Last Admin Trade Name Freq PRN Reason Stop Dose Admin Hydrocodone Bitart /Acetaminophen 1 tab 08/10/20 15:11 08/13/20 15:41 Hydrocodone-Acet aminophen 5-325 Mg Tablet PO 1 tab Q4H PRN Administration MODERATE PAIN Allopurinol 200 mg 08/04/20 20:00 08/10/20 22:23 Allopurinol 100 Mg Tablet PO 200 mg DAILY@20 INA Administration Atorvastatin Calci um 20 mg 08/04/20 20:00 08/09/20 20:37 Atorvastatin 40 Mg Tablet PO 20 mg DAILY@20 INA Administration Famotidine 20 mg 08/04/20 18:00 08/13/20 18:38 Famotidine 20 Mg Tablet PO 20 mg BID INA Administration Gabapentin 300 mg 08/07/20 09:40 08/13/20 09:18 Gabapentin 300 M g Capsule PO 300 mg BID INA Administration Heparin Sodium (Be ef Lung) 5,000 unit 08/12/20 17:00 08/13/20 18:37 Heparin 5,000 Un it/Ml Inj 1 Ml SUBCUT Not Given Q12H INA Sodium Chloride 1,000 mls @ 75 ml s/hr 08/11/20 07:30 08/13/20 21:01 Sodium Chloride 0.9% IV 75 mls/hr .[id number] INA Administration Linezolid 600 mg in 300 mls @ 300 mls/hr 08/11/20 11:00 08/13/20 22:38 Zyvox Premix IV 300 mls/hr Q12H INA Administration Protocol Piperacillin Sod/T azobactam 50 mls @ 12.5 mls /hr 08/13/20 18:00 08/14/20 05:26 Sod 3.375 gm/ So dium Chloride IV 12.5 mls/hr Q12H INA Administration Protocol Methylprednisolone Sodium Succinate 250 mg 08/12/20 15:30 08/13/20 15:23 Methylprednisolo ne Sod Succ 125 Mg /2 Ml Inj IVP 250 mg Q24H INA Administration Sevelamer Carbonat e 800 mg 08/12/20 15:00 08/13/20 21:00 Sevelamer 800 Mg Tablet PO 800 mg TID INA Administration Sodium Bicarbonate 650 mg 08/12/20 15:00 08/13/20 21:00 Sodium Bicarbona te 650 Mg Tablet PO 650 mg TID INA Administration PFSH Anesthesia PFSH: Medical History (Updated 08/12/20 @ 15:58 by Tremaine Ferrari MD) Arthritis Bilateral primary osteoarthritis of hip Diastolic CHF Gout HLD (hyperlipidemia) Hypertension Surgical History (Updated 08/04/20 @ 15:08 by Tremaine Ferrari MD) H/O vein stripping H/O ventral hernia repair Family History (Updated 08/04/20 @ 15:09 by Tremaine Ferrari MD) Father CAD (coronary artery disease) Mother Aspiration pneumonia Social History (Updated 07/28/20 @ 10:07 by Nicholas Jaimes LPN) Smoking and tobacco status: never smoked Alcohol intake: never Current occupational status: retired Data Anesthesia CBC & Chem 7: 08/14/20 04:50 08/14/20 04:50 Other Labs: Laboratory Results - last 48 hr 08/11/20 08/11/20 08/11/20 14:00 14:11 14:11 WBC RBC Hgb Hct MCV MCH MCHC RDW Plt Count MPV Neut % (Auto) Lymph % (Auto) [place] % (Auto) Eos % (Auto) Baso % (Auto) Neut # (Auto) Lymph # (Auto) [place] # (Auto) Eos # (Auto) Baso # (Auto) Nucleated RBC % (auto) Nucleated RBCs # PT INR APTT Fibrinogen Fibrin Degrad Products D-Dimer Specimen Type Arterial Sample Site Brachial, left ABG pH 7.42 ABG pCO2 37.4 ABG pO2 111.0 H ABG HCO3 24.2 ABG O2 Saturation 98.7 ABG Base Excess -0.1 Juventino Test N/a A-a O2 Gradient 16.3 H Hematocrit 35.8 L Hgb O2 Saturation 97.9 Carboxyhemoglobin 0.8 Methemoglobin 0.1 L Total Hemoglobin 11.7 L Sodium 134.0 Potassium 4.9 Glucose 125.0 H Ionized Calcium 1.1 O2 Delivery Device Bipap FiO2 40.0 Blankbook Forwarder ID Ed Chloride Carbon Dioxide Anion Gap BUN Creatinine GFR Calculation POC Glucose Calculated Osmolality Lactate Uric Acid Calcium Phosphorus Magnesium Ferritin Total Bilirubin AST ALT Alkaline Phosphatase Creatine Kinase C-Reactive Protein NT-Pro-B Natriuret Pep Total Protein Albumin Globulin Procalcitonin Ur Eosinophil Smear 0 Urine Eosinophils No eosinophils seen Ur Random Sodium 40 Ur Random Potassium 77 Ur Random Chloride 20 Ur Random Urea Nitrogn 204 Urine Creatinine 190 Urine Opiates Screen Positive H Ur Barbiturates Screen Negative Ur Phencyclidine Scrn Negative Ur Amphetamines Screen Negative U Benzodiazepines Scrn Negative Urine Cocaine Screen Positive H U Marijuana (THC) Screen Negative 08/12/20 08/12/20 08/12/20 09:00 09:00 09:00 WBC 18.6 H RBC 3.62 L Hgb 10.0 L Hct 32.2 L MCV 89.0 MCH 27.6 L MCHC 31.1 RDW 15.2 H Plt Count 495 H MPV 10.7 H Neut % (Auto) 81.5 Lymph % (Auto) 5.4 [place] % (Auto) 8.7 Eos % (Auto) 2.4 Baso % (Auto) 1.0 Neut # (Auto) 13.68 H Lymph # (Auto) 1.0 [place] # (Auto) 1.6 H Eos # (Auto) 0.5 Baso # (Auto) 0.2 H Nucleated RBC % (auto) 0 Nucleated RBCs # 0.0 PT 15.60 H INR 1.20 APTT Fibrinogen Fibrin Degrad Products D-Dimer 11.94 H Specimen Type Sample Site ABG pH ABG pCO2 ABG pO2 ABG HCO3 ABG O2 Saturation ABG Base Excess Juventino Test A-a O2 Gradient Hematocrit Hgb O2 Saturation Carboxyhemoglobin Methemoglobin Total Hemoglobin Sodium 135 L Potassium 5.4 H Glucose 111 Ionized Calcium O2 Delivery Device FiO2 Blankbook Forwarder ID Chloride 93 L Carbon Dioxide 19 L Anion Gap 28.4 H BUN 121 H* Creatinine 6.5 H* GFR Calculation 8.6 L POC Glucose Calculated Osmolality 319 H Lactate Uric Acid Calcium 9.2 Phosphorus 11.7 H* Magnesium 3.3 H Ferritin 1953 H Total Bilirubin 1.6 H AST 295 H ALT 118 H Alkaline Phosphatase 224 H Creatine Kinase 93636 H* C-Reactive Protein 453.8 H NT-Pro-B Natriuret Pep 126 H Total Protein 6.7 Albumin 2.4 L Globulin 4.3 Procalcitonin 4.05 H Ur Eosinophil Smear Urine Eosinophils Ur Random Sodium Ur Random Potassium Ur Random Chloride Ur Random Urea Nitrogn Urine Creatinine Urine Opiates Screen Ur Barbiturates Screen Ur Phencyclidine Scrn Ur Amphetamines Screen U Benzodiazepines Scrn Urine Cocaine Screen U Marijuana (THC) Screen 08/12/20 08/13/20 08/13/20 09:00 05:49 05:49 WBC RBC Hgb Hct MCV MCH MCHC RDW Plt Count MPV Neut % (Auto) Lymph % (Auto) [place] % (Auto) Eos % (Auto) Baso % (Auto) Neut # (Auto) Lymph # (Auto) [place] # (Auto) Eos # (Auto) Baso # (Auto) Nucleated RBC % (auto) Nucleated RBCs # PT 15.50 H INR 1.19 APTT 31.2 Fibrinogen 1510 H Fibrin Degrad Products Pos, 10-40 H D-Dimer 9.75 H Specimen Type Sample Site ABG pH ABG pCO2 ABG pO2 ABG HCO3 ABG O2 Saturation ABG Base Excess Juventino Test A-a O2 Gradient Hematocrit Hgb O2 Saturation Carboxyhemoglobin Methemoglobin Total Hemoglobin Sodium Potassium Glucose Ionized Calcium O2 Delivery Device FiO2 Blankbook Forwarder ID Chloride Carbon Dioxide Anion Gap BUN Creatinine GFR Calculation POC Glucose Calculated Osmolality Lactate 1.1 Uric Acid 16.0 H Calcium Phosphorus 12.8 H* Magnesium 3.4 H Ferritin 2336 H Total Bilirubin AST ALT Alkaline Phosphatase Creatine Kinase 4969 H* C-Reactive Protein NT-Pro-B Natriuret Pep 545 H Total Protein Albumin Globulin Procalcitonin 3.13 H Ur Eosinophil Smear Urine Eosinophils Ur Random Sodium Ur Random Potassium Ur Random Chloride Ur Random Urea Nitrogn Urine Creatinine Urine Opiates Screen Ur Barbiturates Screen Ur Phencyclidine Scrn Ur Amphetamines Screen U Benzodiazepines Scrn Urine Cocaine Screen U Marijuana (THC) Screen 08/13/20 08/13/20 08/13/20 05:49 05:49 08:19 WBC 16.7 H RBC 3.82 L Hgb 10.4 L Hct 34.5 L MCV 90.3 MCH 27.2 L MCHC 30.1 RDW 14.9 Plt Count 501 H MPV 11.0 H Neut % (Auto) 94.3 Lymph % (Auto) 3.8 [place] % (Auto) 1.1 Eos % (Auto) 0.1 Baso % (Auto) 0.5 Neut # (Auto) 14.63 H Lymph # (Auto) 0.6 L [place] # (Auto) 0.2 Eos # (Auto) 0.0 Baso # (Auto) 0.1 Nucleated RBC % (auto) 0 Nucleated RBCs # 0.0 PT INR APTT Fibrinogen Fibrin Degrad Products D-Dimer Specimen Type Sample Site ABG pH ABG pCO2 ABG pO2 ABG HCO3 ABG O2 Saturation ABG Base Excess Juventino Test A-a O2 Gradient Hematocrit Hgb O2 Saturation Carboxyhemoglobin Methemoglobin Total Hemoglobin Sodium 132 L Potassium 5.8 H Glucose 198 H Ionized Calcium O2 Delivery Device FiO2 Blankbook Forwarder ID Chloride 89 L Carbon Dioxide 16 L Anion Gap 32.8 H BUN 138 H* Creatinine 7.3 H* GFR Calculation 7.5 L POC Glucose Calculated Osmolality 324 H Lactate 0.7 Uric Acid Calcium 9.0 Phosphorus Magnesium Ferritin Total Bilirubin 1.1 AST 261 H ALT 135 H Alkaline Phosphatase 326 H Creatine Kinase C-Reactive Protein 425.9 H NT-Pro-B Natriuret Pep Total Protein 7.3 Albumin 2.5 L Globulin 4.8 H Procalcitonin Ur Eosinophil Smear Urine Eosinophils Ur Random Sodium Ur Random Potassium Ur Random Chloride Ur Random Urea Nitrogn Urine Creatinine Urine Opiates Screen Ur Barbiturates Screen Ur Phencyclidine Scrn Ur Amphetamines Screen U Benzodiazepines Scrn Urine Cocaine Screen U Marijuana (THC) Screen 08/13/20 08/13/20 08/13/20 10:31 16:50 20:54 WBC RBC Hgb Hct MCV MCH MCHC RDW Plt Count MPV Neut % (Auto) Lymph % (Auto) [place] % (Auto) Eos % (Auto) Baso % (Auto) Neut # (Auto) Lymph # (Auto) [place] # (Auto) Eos # (Auto) Baso # (Auto) Nucleated RBC % (auto) Nucleated RBCs # PT INR APTT Fibrinogen Fibrin Degrad Products D-Dimer Specimen Type Sample Site ABG pH ABG pCO2 ABG pO2 ABG HCO3 ABG O2 Saturation ABG Base Excess Juventino Test A-a O2 Gradient Hematocrit Hgb O2 Saturation Carboxyhemoglobin Methemoglobin Total Hemoglobin Sodium Potassium Glucose Ionized Calcium O2 Delivery Device FiO2 Blankbook Forwarder ID Chloride Carbon Dioxide Anion Gap BUN Creatinine GFR Calculation POC Glucose 181 H 256 H 237 H Calculated Osmolality Lactate Uric Acid Calcium Phosphorus Magnesium Ferritin Total Bilirubin AST ALT Alkaline Phosphatase Creatine Kinase C-Reactive Protein NT-Pro-B Natriuret Pep Total Protein Albumin Globulin Procalcitonin Ur Eosinophil Smear Urine Eosinophils Ur Random Sodium Ur Random Potassium Ur Random Chloride Ur Random Urea Nitrogn Urine Creatinine Urine Opiates Screen Ur Barbiturates Screen Ur Phencyclidine Scrn Ur Amphetamines Screen U Benzodiazepines Scrn Urine Cocaine Screen U Marijuana (THC) Screen 08/14/20 08/14/20 08/14/20 04:50 04:50 04:50 WBC 19.2 H RBC 3.65 L Hgb 10.1 L Hct 31.9 L MCV 87.4 MCH 27.7 L MCHC 31.7 D RDW 14.8 Plt Count 578 H MPV 10.8 H Neut % (Auto) 86.9 Lymph % (Auto) 4.2 [place] % (Auto) 3.2 Eos % (Auto) 0.1 Baso % (Auto) 0.3 Neut # (Auto) 16.65 H Lymph # (Auto) 0.8 [place] # (Auto) 0.6 Eos # (Auto) 0.0 Baso # (Auto) 0.1 Nucleated RBC % (auto) 0 Nucleated RBCs # 0.0 PT 14.90 INR 1.13 APTT 30.8 Fibrinogen 1189 H Fibrin Degrad Products Pos, 10-40 H D-Dimer 7.79 H Specimen Type Sample Site ABG pH ABG pCO2 ABG pO2 ABG HCO3 ABG O2 Saturation ABG Base Excess Juventino Test A-a O2 Gradient Hematocrit Hgb O2 Saturation Carboxyhemoglobin Methemoglobin Total Hemoglobin Sodium 129 L Potassium 5.5 H Glucose 225 H Ionized Calcium O2 Delivery Device FiO2 Blankbook Forwarder ID Chloride 87 L Carbon Dioxide 16 L Anion Gap 31.5 H BUN 172 H* Creatinine 7.5 H* GFR Calculation 7.3 L POC Glucose Calculated Osmolality 332 H Lactate Uric Acid 14.9 H Calcium 8.0 L Phosphorus 11.9 H* Magnesium 3.5 H Ferritin Total Bilirubin 0.8 AST 157 H ALT 120 H Alkaline Phosphatase 278 H Creatine Kinase 2797 H* C-Reactive Protein 245.2 H NT-Pro-B Natriuret Pep 1047 H Total Protein 6.9 Albumin 2.3 L Globulin 4.6 Procalcitonin 2.60 H Ur Eosinophil Smear Urine Eosinophils Ur Random Sodium Ur Random Potassium Ur Random Chloride Ur Random Urea Nitrogn Urine Creatinine Urine Opiates Screen Ur Barbiturates Screen Ur Phencyclidine Scrn Ur Amphetamines Screen U Benzodiazepines Scrn Urine Cocaine Screen U Marijuana (THC) Screen 08/14/20 08/14/20 08/14/20 04:50 05:50 06:41 WBC RBC Hgb Hct MCV MCH MCHC RDW Plt Count MPV Neut % (Auto) Lymph % (Auto) [place] % (Auto) Eos % (Auto) Baso % (Auto) Neut # (Auto) Lymph # (Auto) [place] # (Auto) Eos # (Auto) Baso # (Auto) Nucleated RBC % (auto) Nucleated RBCs # PT INR APTT Fibrinogen Fibrin Degrad Products D-Dimer Specimen Type Arterial Sample Site Radial, left ABG pH 7.32 L ABG pCO2 34.5 L ABG pO2 77.3 L ABG HCO3 17.7 L ABG O2 Saturation ABG Base Excess -7.6 L Juventino Test Pos A-a O2 Gradient Hematocrit 33.8 L Hgb O2 Saturation Carboxyhemoglobin Methemoglobin Total Hemoglobin Sodium Potassium Glucose Ionized Calcium O2 Delivery Device FiO2 21.0 Blankbook Forwarder ID Drn Chloride Carbon Dioxide Anion Gap BUN Creatinine GFR Calculation POC Glucose 202 H Calculated Osmolality Lactate 1.4 Uric Acid Calcium Phosphorus Magnesium Ferritin Total Bilirubin AST ALT Alkaline Phosphatase Creatine Kinase C-Reactive Protein NT-Pro-B Natriuret Pep Total Protein Albumin Globulin Procalcitonin Ur Eosinophil Smear Urine Eosinophils Ur Random Sodium Ur Random Potassium Ur Random Chloride Ur Random Urea Nitrogn Urine Creatinine Urine Opiates Screen Ur Barbiturates Screen Ur Phencyclidine Scrn Ur Amphetamines Screen U Benzodiazepines Scrn Urine Cocaine Screen U Marijuana (THC) Screen Micro: Microbiology 08/11/20 14:45 Blood Culture - Preliminary Blood NEGATIVE TO DATE Cardiac Studies: Echocardiogram 08/05/20
[2020-08-14] MEDS: sodium chloride 0.9% 1,000 ML 30 ML IV (08:10)
[2020-08-14] MEDS: clindamycin 900 MG/50 ML PREMIX 100 MG IV (08:14)
--- NOTE | 2020-08-14 08:27 | PC.OT ---
OT tx attempted. Pt is in procedure to insert dialysis catheter at this time. Will attempt tx at later time if possible.
[2020-08-14 08:35] LABS: Ferritin 2305 ng/mL (30-400)
[2020-08-14] MEDS: heparin, porcine 1,000 unit/mL INJ 10 mL 10000 UNIT (08:41)
--- NOTE | 2020-08-14 09:18 | PM.OP ---
Operative Report Date of procedure: August 14, 2020 Pre-op Diagnosis: Acute kidney injury/renal failure. Post-op diagnosis: same Procedure Done: 1. Attempted placement of tunneled HemoSplit hemodialysis catheter into the right internal jugular vein using intraoperative ultrasound. 2. Placement of 11.5 Greenlandic 16 cm temporary hemodialysis catheter into the right femoral vein using intraoperative ultrasound guidance. Specimens removed/disposition: None. Surgeon: Eddie Chino Anesthesia: General Estimated blood loss (mL): 15 Complications: None. (Unable to locate a good anatomic right internal jugular vein). Condition: stable Disposition: PACU Procedure: The patient was brought to the operating room and was placed in a supine position on the operating room table. General anesthesia was induced by means of a laryngeal mask airway. The right side of the neck and chest were prepped and draped in a sterile fashion. Intraoperative ultrasound was used at the base of the neck in an attempt to find the right internal jugular vein, as the patient's body habitus made any landmarks nonexistent. A small venous structure was located in the area of the carotid artery, but did not appear to be typical of the size of an internal jugular vein. An attempt was made to access the vessel but no blood return was ever obtained. The patient had a more superficial vein farther medially that seemed even a little larger and was easily accessed with a needle and syringe and showed easy flow of dark, nonpulsatile blood. In hopes that this was a short branch that entered the internal jugular vein, the J-wire was passed through the needle but eventually met resistance upon trying to advance it further into the vessel. The vessel was accessed 2 more times but the same result was obtained. The procedure was finally aborted. The ultrasound had been used to look up the neck a good distance but a good anatomic internal jugular vein on the right side was never identified. Attention was directed to the right femoral region after the area was reprepped and draped in hopes that at least a temporary dialysis catheter could be placed at that site. Once again intraoperative ultrasound was used to try to identify vessels but they also seemed very small in this area. A needle and syringe were used to access what appeared to be a small femoral vein on the right side and good venous blood flow was obtained on aspiration. A J-wire was passed down the needle and was easily introduced up the vessel. A scalpel was used to slightly enlarge the skin opening at the insertion point of the J-wire. Small to medium sized dilators were then sequentially placed over the guidewire to dilate the skin and subcutaneous tissue. The temporary dialysis catheter was then easily passed over the wire into the vein. The wire was removed. Both ports showed excellent flow on aspiration and were then left filled with hep flush solution. The catheter was sewn in place with some interrupted sutures of 2-0 Prolene. A sterile dressing followed. The patient was taken back to the recovery area postoperatively in stable condition. INTRAOPERATIVE FLUOROSCOPY FINDINGS: Intraoperative fluoroscopic images of a hemodialysis catheter placement were reviewed. An initial image reveals a J-wire entering the right internal jugular vein and extending down the vena cava. Subsequent images reveal a dialysis catheter on that side of the chest with its tubing tip in good location in the superior vena cava. No obvious pneumothorax is identified.
--- NOTE | 2020-08-14 10:01 | P.PCN_ITS ---
PACU note PACU note: VSS, Good respiratory effort, report to PULP PRESS TENDER Post-Anesthesia Exam: awake Disposition: back to floor
--- NOTE | 2020-08-14 10:01 | PM.PACU ---
PACU note PACU note: VSS, Good respiratory effort, report to JAVA SQL DEVELOPER Post-Anesthesia Exam: awake Disposition: back to floor
--- NOTE | 2020-08-14 10:32 | ANE.PACU2 ---
Inpatient post-anesthesia follow up: Airway intact: Yes Vital signs: Temperature 97.2 F Pulse Rate [Apical ] 98 Pulse Rate 72 Respiratory Rate 18 Blood Pressure [Ri ght Arm] 164/116 Blood Pressure 124/77 Pulse Oximetry 93 Oxygen Delivery Me thod [ Room Air Current Rate & Del alton] Oxygen Delivery Me thod Room Air Oxygen Flow Rate 8 Fraction of Inspir ed Oxygen 30 Hydration adequate: Yes Nausea and vomiting: No Pain level: 1 Mental status: Baseline
[2020-08-14 11:00] LABS: ABG PCO2 34.3 mmHg (35-45); Alveolar-Arterial Oxygen Gradi 10.6 mmHg (5-10); Arterial Blood Gas Hematocrit 33.8 % (42-52); Base Excess ABG -8.8 mmol/L (-2.0-2.0); Blood Gas Allen Test Pos; Blood Gas Operator Identificat AMH; Blood Gas Sample Site Radial, left; Blood Gas Sample Type Arterial; Carboxyhemoglobin 0.9 %THgb (0.4-20.1); HCO3 ABG 16.8 mmol/L (22-26); HGB O2 Sat 94.8 % (95-100); Methemoglobin 0.7 % (0.4-1.5); Oxygen Device BIPAP; Oxygen Saturation ABG 96.4; Potassium Level - ABG 5.5 mmol/L (3.5-5.0)
[2020-08-14 11:03] LABS: Oxygen Device RA
--- NOTE | 2020-08-14 11:05 | P.PN_ITS ---
Subjective Subjective: Interval history: lethargic, sob on bipap Medications: Reviewed: Yes Medication Review Details: Current Medications Hydrocodone Bitart/Acetaminophen (Hydrocodone-Acetaminophen 5-325 Mg Tablet) 1 tab PO Q4H PRN PRN Reason: MODERATE PAIN Last Admin: 08/13/20 15:41 Dose: 1 tab Documented by: Bisacodyl (Bisacodyl 5 Mg Tablet) 10 mg PO DAILY PRN PRN Reason: CONSTIPATION Dextrose (Dextrose 50% Syringe 50 Ml) 25 ml IVP ONCE PRN; Protocol PRN Reason: hypoglycemia protocol Dextrose (Dextrose 50% Syringe 50 Ml) 50 ml IVP PRN PRN; Protocol PRN Reason: hypoglycemia protocol Dextrose (Dextrose 50% Syringe 50 Ml) 25 ml IVP ONCE PRN; Protocol PRN Reason: hypoglycemia protocol Dextrose (Dextrose 50% Syringe 50 Ml) 50 ml IVP PRN PRN; Protocol PRN Reason: hypoglycemia protocol Famotidine (Famotidine 20 Mg Tablet) 20 mg PO BID [facility] Last Admin: 08/13/20 18:38 Dose: 20 mg Documented by: Glucagon (Glucagon 1 Mg/Ml Inj 1 Ml) 1 mg IM ONCE PRN; Protocol PRN Reason: Adult Acute Hypoglycemia Prot. Glucagon (Glucagon 1 Mg/Ml Inj 1 Ml) 1 mg IM ONCE PRN; Protocol PRN Reason: Adult Acute Hypoglycemia Prot. Heparin Sodium (Beef Lung) (Heparin 5,000 Unit/Ml Inj 1 Ml) 5,000 unit SUBCUT Q12H [facility] Last Admin: 08/13/20 18:37 Dose: Not Given Documented by: Sodium Chloride (Sodium Chloride 0.9%) 1,000 mls @ 75 mls/hr IV .[id number] [facility] Last Admin: 08/13/20 21:01 Dose: 75 mls/hr Documented by: Linezolid (Zyvox Premix) 600 mg in 300 mls @ 300 mls/hr IV Q12H INA; Protocol Last Admin: 08/13/20 22:38 Dose: 300 mls/hr Documented by: Dextrose (D5w) 500 mls @ 100 mls/hr IV ONCE PRN; Protocol PRN Reason: Adult Acute Hypoglycemia Prot Piperacillin Sod/Tazobactam (Sod 3.375 gm/ Sodium Chloride) 50 mls @ 12.5 mls/hr IV Q12H [facility]; Protocol Last Admin: 08/14/20 05:26 Dose: 12.5 mls/hr Documented by: Dextrose (D5w) 500 mls @ 100 mls/hr IV ONCE PRN; Protocol PRN Reason: Adult Acute Hypoglycemia Prot Insulin Aspart (Insulin Aspart 100 Unit/1 Ml) 0 unit SUBCUT TIDWM [facility]; Protocol Methylprednisolone Sodium Succinate (Methylprednisolone Sod Succ 125 Mg/2 Ml Inj) 250 mg IVP Q24H [facility] Last Admin: 08/13/20 15:23 Dose: 250 mg Documented by: Ondansetron HCl (Ondansetron 2 Mg/Ml Sdv 2 Ml) 4 mg IVP Q8H PRN PRN Reason: vomiting, or N/V if npo Sevelamer Carbonate (Sevelamer 800 Mg Tablet) 800 mg PO TID [facility] Last Admin: 08/13/20 21:00 Dose: 800 mg Documented by: Sodium Bicarbonate (Sodium Bicarbonate 650 Mg Tablet) 650 mg PO TID [facility] Last Admin: 08/13/20 21:00 Dose: 650 mg Documented by: Vitals/I&O/Wt Last Vital Signs Temp 97.2 F L 08/14/20 09:50 Pulse 74 08/14/20 11:00 Resp 18 08/14/20 09:50 BP 124/77 08/14/20 09:50 Pulse Ox 97 08/14/20 11:00 08/13/20 08/14/20 08/14/20 22:59 06:59 14:59 Intake Total 1290 / 1690 50 / 50 Output Total 250 / 250 5 / 5 Balance 1290 / 1690 -250 / 1440 45 / 45 Physical Exam Narrative: EXAM NARRATIVE: obese man in bed, confused- on bipap. SOB VS noted heent- nc/at, eomi neck no jvp lungs- rales or crackles- poor air movement heart reg abd soft, nt, nd, +BS ext b/l edema neuro- confused, weak, lethargic Urinary Catheter Management^: Flowers: Cath Placed During This Visit: yes, but has since been removed by the nurse Reason for Continuing Indwelling Catheter: Accurate Measurement of Urinary Output in Critically Ill Patients Urinary Catheter Date of Insertion: 08/05/20 Urinary Catheter Time of Insertion: 15:00 Date Urinary Catheter Removed: 08/09/20 Time Urinary Catheter Discontinued: 05:45 Data : 08/14/20 04:50 08/14/20 04:50 Micro: Microbiology 08/11/20 14:45 Blood Culture - Preliminary Blood NEGATIVE TO DATE A&P Additional A&P Information 65 yr old man Diastolic CHF, leg edema, htn, morbid obesity, gout, arthritis. Pt developed MAGGIE 1. Acute oligoanuric kidney injury due to ATN- from infection, hypotension, robert- i, thiazides, and NSAID use vs Q AIN. Has concominant rhabdomyolysis- CK improved to 2797- rhabdomyolysis -likely from immobility and MAGGIE -poor uop, confusion, hyperkalemia, uremia- dialysis catheter placed- will initiate now- 3 hrs, 250 blood flow, dialysate 500, 2k bath, remove 2 l -d/c sodium bicarbonate -normal renal us 2. 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 Hyperuricemia, hyperphosphatemia, hypermagnesemia 4. Hyperkalemia, metabolic acidosis 5. RLL PNA- abx per medicine 6. htn- monitor w/ dialysis 7. monitor mental status w/ HD 8. monitor lfts discussed w/ nurse orthopaedic in detail Attestations Medical Necessity Statement*: maggie/ rhabdo/ AMS, SOB, obesity Time Spent in Patient Care: 16 - 35 minutes Coding Level of Care Code Acute Plastic Machine Operator for Corrie Ordonez
[2020-08-14 11:28] LABS: Glucose Point of Care 193 mg/dL (70-110)
[2020-08-14 11:29] LABS: ABG PCO2 38.5 mmHg (35-45); ABG PH Result 7.31 (7.35-7.45); BIPAP 20/10; Base Excess ABG -6.5 mmol/L (-2.0-2.0); Blood Gas Allen Test POS; Blood Gas Sample Site RR; Blood Gas Sample Type ARTERIAL; HCO3 ABG 19.3 mmol/L (22-26); Oxygen Device BIPAP
[2020-08-14 11:30] LABS: Arterial Blood Gas Hematocrit 38.4 % (42-52)
[2020-08-14 11:41] LABS: Hepatitis B Surface AB 3.5 (0-8.5); Hepatitis B Surface Antigen Non-Reactive (Nonreactive); Hepatitis C Virus Antibody Non-Reactive (Nonreactive)
--- NOTE | 2020-08-14 12:28 | P.PN_ITS ---
Subjective Subjective: Interval history: Patient was seen after his dialysis catheter placement, currently is on BiPAP, follows all commands, he has no particular complaints this morning, no fevers, no chills, no nausea, vomiting, no chest pain Vitals/I&O/Wt Last Vital Signs Temp 97.6 F 08/14/20 11:00 Pulse 70 08/14/20 11:00 Resp 14 08/14/20 11:00 BP 140/82 08/14/20 11:00 Pulse Ox 97 08/14/20 11:00 08/13/20 08/14/20 08/14/20 22:59 06:59 14:59 Intake Total 1290 / 1690 50 / 50 Output Total 250 / 250 5 / 5 Balance 1290 / 1690 -250 / 1440 45 / 45 Physical Exam Narrative: EXAM NARRATIVE: Morbidly obese male Large pannus Const: COMMON NORMALS: no acute distress and patient oriented x3 HENMT: COMMON NORMALS: normocephalic HEAD & SCALP: normocephalic Neck/C-Spine: COMMON NORMALS: no JVD Resp: COMMON NORMALS: normal respiratory effort, No retractions, No use of accessory muscles and clear to auscultation bilaterally AUSCULTATION: clear to auscultation bilaterally Cardio: COMMON NORMALS: no JVD, regular rate, regular rhythm, S1 normal heart sound present and S2 normal heart sound present RATE: regular rate RHYTHM: regular rhythm HEART SOUNDS: S1 normal heart sound present and S2 normal heart sound present GI: COMMON NORMALS: Normal to inspection, nondistended, normoactive bowel sounds present, Soft to palpation, non-tender, No hepatosplenomegaly present, no masses and no bruits PALPATION: Yes Soft to palpation and Yes No hepatosplenomegaly present Extremity: COMMON NORMALS: capillary refill normal, no clubbing, cyanosis or edema, no calf tenderness and no pedal edema NARRATIVE EXTREMITY EXAM: Diffuse anasarca Neuro: COMMON NORMALS: patient oriented x3 Psych: COMMON NORMALS: mental status grossly normal Skin: NARRATIVE SKIN EXAM: Right hemodialysis catheter placement to femoral vein Urinary Catheter Management^: Flowers: Cath Placed During This Visit: yes, but has since been removed by the nurse Reason for Continuing Indwelling Catheter: Accurate Measurement of Urinary Output in Critically Ill Patients Urinary Catheter Date of Insertion: 08/05/20 Urinary Catheter Time of Insertion: 15:00 Date Urinary Catheter Removed: 08/09/20 Time Urinary Catheter Discontinued: 05:45 Data : 08/14/20 04:50 08/14/20 04:50 Micro: Microbiology 08/11/20 14:45 Blood Culture - Preliminary Blood NEGATIVE TO DATE A&P Assessment and plan (1) Vertebral osteomyelitis: -With sepsis -CT of abdomen pelvis shows:Lytic changes in the L3 and L4 vertebral bodies without adjacent inflammation. Indolent vertebral body osteomyelitis, metastatic disease or degenerative cystic changes in the vertebral bodies. -CT-of the cervical spine does not show any significant osteomyelitis -I went over CT scan findings with Dr. Cuellar, she feels that changes in vertebral bodies are likely related to osteomyelitis -Unfortunately patient cannot have a MRI given his body habitus -Unfortunately cannot perform a tagged white blood cell scan as he cannot fit in the machine -Unfortunate patient cannot have a CT-guided biopsy, due to his body habitus, difficulty accessing site -White blood cell count 19.2, ESR greater than 120, procalcitonin 2.6 -This is certainly a mixed picture, sepsis findings, given transaminitis, acute renal failure -Blood pressure normotensive, afebrile, saturating in the high 90s on room air -Lactic acid within normal limits -Inflammatory markers improving Plan: -Continue neurochecks -Continue bariatric bed -Needs to get up out of bed into bariatric chair -Placed on broad-spectrum antibiotic therapy Zyvox and Zosyn -Follow blood cultures -Monitor clinical progress -Patient is on Solu-Medrol 250 every 24 hours, monitor blood sugars 3 times daily -If patient starts to clinically worsen, will consider transferring for [facility] -DNR/DNI -Heparin for DVT prophylaxis -Patient was updated Status: Acute (2) Acute renal failure: -Etiology multifactorial's rhabdomyolysis and/or sepsis and or drug reaction and/or dress syndrome -Has not received any NSAIDs, is on lisinopril hydrochlorthiazide which has been held -Was on Lasix therapy -He does have a allergy to cephalexin, allergy unknown, patient is unsure what the allergy is, could he possibly have dress syndrome, however does not have significant eosinophilia on CBC -We will hold allopurinol as associate with dress syndrome,, Denis Diogo syndrome -CPK and uric acid are pending -CT scan of the abdomen pelvis does not show any significant obstructive uropathy, or kidney stone, but it was a difficult study -Urine output 50 cc, 255, bicarb 16, pH 7.29 -Mild acidosis, hyponatremia, hypokalemia, uremia, Plan: -Plan for hemodialysis today -Nephrology on consult -Urine studies ordered -Peripheral smear -Trend CPK and uric acids -Urine output remains minimal -Dr. Chino on consult -Dialysis catheter placement placement to right femoral vein -On Renvela, sodium bicarb Status: Acute (3) RLL pneumonia: Initially on chest x-ray patient was noted to have right lower lobe pneumonia for which she received treatment with ceftriaxone and azithromycin. CT chest negative for consolidative process Status: Acute (4) Hypertension: -Hold Norvasc to 10 mg daily -Discontinue lisinopril given creatinine increased to 2.2 This is currently well controlled Status: Inactive (5) Diastolic CHF: -Cardiac echocardiogram shows EF of 55%, no regional wall motion abnormalities, poor quality study -d/c lasix , monitor urine output closely, Flowers catheter Status: Acute (6) Gout: Continue allopurinol Status: Acute (7) Bilateral lower extremity edema: Minimal today Status: Acute (8) Morbid obesity with BMI of 60.0-69.9, adult: Needs to follow-up with bariatric clinic, needs to be motivated to lose weight Status: Acute (9) Difficulty in walking: PT OT, however states unable to participate due to weakness Status: Acute (10) Bilateral primary osteoarthritis of hip: PT OT, pain control Status: Acute (11) HLD (hyperlipidemia): Continue simvastatin Status: Acute (12) Unable to ambulate: PT OT Status: Acute (13) Intractable pain: -Has some calf pain bilaterally, lower extremity Doppler negative for DVT Status: Acute (14) Sepsis: Status: Acute (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 -From allopurinol versus ceftriaxone -With transaminitis, acute renal failure, multiorgan dysfunction, I cannot see a rash -Continue Solu-Medrol 250 every 24 hours Status: Acute (16) Encephalopathy: -Much more alert, awake, oriented x3, at bedside, following all commands, cranial nerves II to XII grossly intact -ABG did not show any significant hypoxia or hypercarbia -Continue BiPAP overnight -The question is does he have meningitis in addition to vertebral osteomyelitis as the below, does not have any neck pain, no neck stiffness, no fevers, no nausea, vomiting, blurry vision, but will monitor closely -Neurochecks -Patient does have significant uremia, BUN 121, could have uremic encephalopathy component -Septic encephalopathy Status: Acute (17) Rhabdomyolysis: -Etiology of rhabdomyolysis is uncertain, patient has been immobile, in bed, been laying on his back, area vertebral osteomyelitis as a possible etiology -Certainly compartment syndrome could be an etiology -We will obtain a CT of his pelvis did show severe left hip osteoarthritis, no significant evidence of compartment syndrome Status: Acute (18) Hyperuricemia: Status: Acute (19) Transaminitis: Status: Acute Additional A&P Information Dvt ppx: Heparin Patient is a DNR/DNI Dispo: Likely requires intermediate facility placement Attestations Medical Necessity Statement*: Patient requires hospitalization for vertebral osteomyelitis, with sepsis, with acute renal failure Coding Level of Care Code Acute Wage Hand for [facility] Fwd Diagnoses Vertebral osteomyelitis M46.20 Acute renal failure N17.9 RLL pneumonia J18.9 Hypertension I10 Diastolic CHF I50.30 Gout M10.9 Bilateral lower extremity edema R60.0 Morbid obesity with BMI of 60.0-69.9, adult E66.01; Z68.44 Difficulty in walking R26.2 Bilateral primary osteoarthritis of hip M16.0 HLD (hyperlipidemia) E78.5 Unable to ambulate R26.2 Intractable pain R52 Sepsis A41.9 DRESS syndrome D72.12; T50.905A Encephalopathy G93.40 Rhabdomyolysis M62.82 Hyperuricemia E79.0 Transaminitis R74.01
--- NOTE | 2020-08-14 12:52 | PC.NURSE ---
PT IN DIALYSIS
[2020-08-14] MEDS: linezolid premix 600 MG/300 ML PREMIX 300 MG IV ×2 (16:00→23:30)
[2020-08-14] MEDS: sevelamer 800 mg Tablet PO ×2 (16:00→20:57)
[2020-08-14] MEDS: famotidine 20 mg Tablet PO (17:41)
[2020-08-14] MEDS: heparin 5,000 unit/mL INJ 1 mL 5000 UNIT SUBCUT (17:42)
[2020-08-14 18:07] LABS: Glucose Point of Care 157 mg/dL (70-110)
[2020-08-14 21:50] LABS: Glucose Point of Care 165 mg/dL (70-110)
[2020-08-14] MEDS: HYDROcodone-acetaminophen 5-325 mg Tablet 1 TAB PO (23:30)
[2020-08-15] VITALS (8 sets, daily range): BP systolic 107–137; BP diastolic 63–78; PULSE 75–96; RESP 15–20; TEMP 36.4–37.1; O2SAT 92–97
[2020-08-15] MEDS: heparin 5,000 unit/mL INJ 1 mL 5000 UNIT SUBCUT ×2 (05:00→18:07)
[2020-08-15] MEDS: piperacillin-tazobactam 3.375 GM in sodium chloride 0.9% (plus) 50 ML IV ×2 (05:00→20:30)
[2020-08-15 05:29] LABS: ABG PCO2 37.2 mmHg (35-45); ABG PH Result 7.37 (7.35-7.45); Arterial Blood Gas Hematocrit > 62.0 % (42-52); Base Excess ABG -3.1 mmol/L (-2.0-2.0); Blood Gas Allen Test Pos; Blood Gas Sample Type Arterial; HCO3 ABG 21.5 mmol/L (22-26)
[2020-08-15 05:30] LABS: Blood Gas Operator Identificat HARKR; Blood Gas Sample Site Radial, left; Oxygen Device BIPAP
--- NOTE | 2020-08-15 07:00 | XR_ITS ---
WS: [id number] Exam: XR chest 1V portable [id number] Date/Time of Exam: 08/15/2020 6:32 AM Reason For Exam: sob Comparison 08/12/2020. There is consolidating infiltrate in the left lower lobe with atelectasis. The right lung remains gen erally clear. The heart is probably enlarged. No pneumothorax noted. Regional bony structures are int act as visualized. XR/XR chest 1V portable [id number] IMPRESSION: 1. Increasing infiltrate and consolidation in the left lower lobe with atelecta sis.
--- NOTE | 2020-08-15 07:11 | P.PN_ITS ---
Subjective Subjective: Interval history: feels better. less sob. more awake. breathing improving- using BiPAP Medications: Reviewed: Yes Medication Review Details: Current Medications Hydrocodone Bitart/Acetaminophen (Hydrocodone-Acetaminophen 5-325 Mg Tablet) 1 tab PO Q4H PRN PRN Reason: MODERATE PAIN Last Admin: 08/14/20 23:30 Dose: 1 tab Documented by: Bisacodyl (Bisacodyl 5 Mg Tablet) 10 mg PO DAILY PRN PRN Reason: CONSTIPATION Dextrose (Dextrose 50% Syringe 50 Ml) 25 ml IVP ONCE PRN; Protocol PRN Reason: hypoglycemia protocol Dextrose (Dextrose 50% Syringe 50 Ml) 50 ml IVP PRN PRN; Protocol PRN Reason: hypoglycemia protocol Dextrose (Dextrose 50% Syringe 50 Ml) 25 ml IVP ONCE PRN; Protocol PRN Reason: hypoglycemia protocol Dextrose (Dextrose 50% Syringe 50 Ml) 50 ml IVP PRN PRN; Protocol PRN Reason: hypoglycemia protocol Famotidine (Famotidine 20 Mg Tablet) 20 mg PO BID [facility] Last Admin: 08/14/20 17:41 Dose: 20 mg Documented by: Glucagon (Glucagon 1 Mg/Ml Inj 1 Ml) 1 mg IM ONCE PRN; Protocol PRN Reason: Adult Acute Hypoglycemia Prot. Glucagon (Glucagon 1 Mg/Ml Inj 1 Ml) 1 mg IM ONCE PRN; Protocol PRN Reason: Adult Acute Hypoglycemia Prot. Heparin Sodium (Beef Lung) (Heparin 5,000 Unit/Ml Inj 1 Ml) 5,000 unit SUBCUT Q12H INA Last Admin: 08/15/20 05:00 Dose: 5,000 unit Documented by: Linezolid (Zyvox Premix) 600 mg in 300 mls @ 300 mls/hr IV Q12H INA; Protocol Last Admin: 08/14/20 23:30 Dose: 300 mls/hr Documented by: Dextrose ([email or web address]) 500 mls @ 100 mls/hr IV ONCE PRN; Protocol PRN Reason: Adult Acute Hypoglycemia Prot Piperacillin Sod/Tazobactam (Sod 3.375 gm/ Sodium Chloride) 50 mls @ 12.5 mls/hr IV Q12H INA; Protocol Last Admin: 08/15/20 05:00 Dose: 12.5 mls/hr Documented by: Dextrose (D5w) 500 mls @ 100 mls/hr IV ONCE PRN; Protocol PRN Reason: Adult Acute Hypoglycemia Prot Insulin Aspart (Insulin Aspart 100 Unit/1 Ml) 0 unit SUBCUT TIDWM [facility]; Protocol Last Admin: 08/14/20 18:35 Dose: 2 unit Documented by: Methylprednisolone Sodium Succinate (Methylprednisolone Sod Succ 125 Mg/2 Ml Inj) 250 mg IVP Q24H [facility] Last Admin: 08/14/20 17:42 Dose: 250 mg Documented by: Ondansetron HCl (Ondansetron 2 Mg/Ml Sdv 2 Ml) 4 mg IVP Q8H PRN PRN Reason: vomiting, or N/V if npo Sevelamer Carbonate (Sevelamer 800 Mg Tablet) 800 mg PO TID [facility] Last Admin: 08/14/20 20:57 Dose: 800 mg Documented by: Vitals/I&O/Wt Last Vital Signs Temp 97.6 F 08/15/20 04:00 Pulse 75 08/15/20 04:00 Resp 16 08/15/20 04:00 BP 107/70 08/15/20 04:00 Pulse Ox 93 08/15/20 04:00 08/14/20 08/15/20 08/15/20 22:59 06:59 14:59 Intake Total 350 / 450 Output Total 100 / 105 Balance 350 / 445 -100 / 345 Physical Exam Narrative: EXAM NARRATIVE: obese man in bed, more awake, comfortable- using bipap VS noted heent- nc/at, eomi neck no jvp lungs- rales and crackles b/l heart reg abd soft, nt, nd, +BS ext b/l edema neuro- more awake and alert Urinary Catheter Management^: Flowers: Cath Placed During This Visit: yes, but has since been removed by the nurse Reason for Continuing Indwelling Catheter: Accurate Measurement of Urinary Output in Critically Ill Patients Urinary Catheter Date of Insertion: 08/05/20 Urinary Catheter Time of Insertion: 15:00 Date Urinary Catheter Removed: 08/09/20 Time Urinary Catheter Discontinued: 05:45 Data : 08/14/20 04:50 08/14/20 04:50 A&P Additional A&P Information 65 yr old man Diastolic CHF, leg edema, htn, morbid obesity, gout, arthritis. Pt developed MAGGIE 1. Acute oligoanuric kidney injury due to ATN- from infection, hypotension, robert- i, thiazides, and NSAID use vs Q AIN. Has concominant rhabdomyolysis- CK improved to 2797- rhabdomyolysis -likely from immobility and MAGGIE -poor uop, confusion, hyperkalemia, uremia- dialysis catheter placed 12- and s/p HD x 1 -repeat HD now- 3 hrs, 300 blood flow, dialysate 600, 2k bath, remove 1.5 l -d/c sodium bicarbonate -normal renal us 2. 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 Hyperuricemia, hyperphosphatemia, hypermagnesemia 4. Hyperkalemia, metabolic acidosis 5. RLL PNA- abx per medicine 6. htn- monitor w/ dialysis - lower meds 7. monitor mental status w/ HD 8. monitor lfts discussed w/ scientific software developer in detail Attestations Medical Necessity Statement*: MAGGIE, osteomyelitis Time Spent in Patient Care: 16 - 35 minutes Coding Level of Care Code Acute Room Attendant for Corrie Ordonez
[2020-08-15 08:05] LABS: Glucose Point of Care 161 mg/dL (70-110)
[2020-08-15 08:15] LABS: Lactate (Lactic Acid level) 1.5 mmol/L (0.5-2.2)
[2020-08-15 08:25] LABS: Basophils % 0.2 %; Hematocrit 32.2 % (42.0-52.0); Hemoglobin 10.2 g/dL (11.7-16.6); Lymphocytes # 0.8 10^3/uL (0.8-4.8); Lymphocytes % 4.9 %; Mean Corpuscular HGB Conc 31.7 g/dL (30.0-36.0); Mean Corpuscular Hemoglobin 27.8 pg (28.0-34.0); Mean Corpuscular Volume 87.7 fL (80-94); Mean Platelet Volume 10.6 fL (7.4-10.4); Monocytes % 5.9 %; Neutrophils # 13.63 10^3/uL (1.8-7.7); Neutrophils % 82.1 %; Nucleated Red Blood Cells % 0.2 %; Platelet Count 614 10^3/cmm (130-400); Red Blood Count 3.67 10^6/uL (4.1-5.3); White Blood Count 16.6 10^3/uL (4.0-10.0)
[2020-08-15 08:40] LABS: NT Pro B Type Natriuretic Pept 762 pg/mL (0-125); Procalcitonin 1.97 ng/mL (0-0.5)
[2020-08-15 08:52] LABS: Alanine Aminotransferase 348 U/L (0-41); Albumin Level 2.5 g/dL (3.5-5.2); Alkaline Phosphatase 237 IU/L (40-130); Anion Gap 30.9 (5-19); Aspartate Amino Transferase 432 U/L (0-40); C Reactive Protein 118.9 mg/L (0.0-4.9); Calcium 7.8 mg/dL (8.5-10.5); Carbon Dioxide 18 mmol/L (22-29); Chloride 88 mmol/L (98-107); Globulin 4.1 g/dL (1.3-4.6); Glomerular Filtration Rate 7.5 mL/min (90-130); Glucose 148 mg/dL (65-115); Potassium 4.9 mmol/L (3.5-5.1); Sodium 132 mmol/L (136-145); Total Bilirubin 0.6 mg/dL (0.15-1.2); Total Protein 6.6 g/dL (6.6-8.7); Uric Acid 12.1 mg/dL (3.4-7.0)
[2020-08-15 08:53] LABS: INR 1.28 (0.8-1.2)
[2020-08-15 08:54] LABS: Partial Thromboplastin Time 33.6 SECONDS (23.9-36.7)
[2020-08-15 09:00] LABS: Fibrinogen 1175 mg/dL (174-498)
[2020-08-15 09:03] LABS: Blood Urea Nitrogen 125 mg/dL (8-23)
[2020-08-15 09:04] LABS: Creatine Phosphokinase 1363 U/L (39-308); Creatine Phosphokinase 1374 U/L (39-308); Osmolality Calculated 317 mOsm/kg (285-295); Phosphorus 10.9 mg/dL (2.5-4.5)
[2020-08-15 09:08] LABS: D Dimer 5.48 ug/mIFEU (0-0.59)
--- NOTE | 2020-08-15 09:08 | US_ITS ---
WS: [id number] ULTRASOUND ABDOMEN LIMITED CLINICAL INFORMATION: RUQ us, liver us COMPARISON: Ultrasound August 11, 2020 FINDINGS: Limited examination due to body habitus Liver Size: Hepatomegaly Craniocaudal length: 21.9 cm. Echogenicity: Diffuse fatty infiltration. Surface nodularity: None. Mass (size and location): None. Bile ducts Intrahepatic ducts: Normal. Common bile duct diameter: 0.6 cm. Gallbladder Normal. Gallstones: None. Gallbladder sludge: None. Gallbladder wall thickening: None. Pericholecystic fluid: None. Sonographic Johnson sign: Absent. Pancreas Not visualized Right kidney: Normal. Hydronephrosis: None. Size: 12.5 cm x 6.4 cm x 6.5 cm. Aorta not visualized due to body habitus Ascites: None. US/US abdomen limited [id number] IMPRESSION: 1. Hepatomegaly with diffuse fatty infiltration. 2. Normal gallbladder. 3. No hydronephrosis in right kidney.
[2020-08-15 09:21] LABS: Slide Review Slide Review Perform
[2020-08-15] MEDS: famotidine 20 mg Tablet PO (10:57)
[2020-08-15] MEDS: sevelamer 800 mg Tablet PO ×3 (10:57→20:30)
--- NOTE | 2020-08-15 11:38 | P.PN_ITS ---
Subjective Subjective: Interval history: This morning patient was examined, he was on BiPAP overnight, this morning he has no complaints, he is wondering how his kidneys are doing, he complains of generalized weakness, but is more of a wheel to move, he follows commands, squeezes my fingers, does have anasarca, tells me just he feels tired and worn out Vitals/I&O/Wt Last Vital Signs Temp 97.6 F 08/15/20 07:39 Pulse 82 08/15/20 09:11 Resp 19 H 08/15/20 07:39 BP 107/63 08/15/20 07:39 Pulse Ox 92 08/15/20 09:11 08/14/20 08/15/20 08/15/20 22:59 06:59 14:59 Intake Total 350 / 450 Output Total 100 / 105 Balance 350 / 445 -100 / 345 Physical Exam Narrative: EXAM NARRATIVE: Morbidly obese male Large pannus Const: COMMON NORMALS: no acute distress and patient oriented x3 HENMT: COMMON NORMALS: normocephalic HEAD & SCALP: normocephalic Neck/C-Spine: COMMON NORMALS: no JVD Resp: COMMON NORMALS: normal respiratory effort, No retractions, No use of accessory muscles and clear to auscultation bilaterally AUSCULTATION: clear to auscultation bilaterally Cardio: COMMON NORMALS: no JVD, regular rate, regular rhythm, S1 normal heart sound present and S2 normal heart sound present RATE: regular rate RHYTHM: regular rhythm HEART SOUNDS: S1 normal heart sound present and S2 normal heart sound present GI: COMMON NORMALS: Normal to inspection, nondistended, normoactive bowel sounds present, Soft to palpation, non-tender, No hepatosplenomegaly present, no masses and no bruits PALPATION: Yes Soft to palpation and Yes No hepatosplenomegaly present Extremity: COMMON NORMALS: normal to inspection, full ROM, capillary refill normal, no clubbing, cyanosis or edema, no calf tenderness and no pedal edema NARRATIVE EXTREMITY EXAM: Diffuse anasarca Neuro: COMMON NORMALS: patient oriented x3 Psych: COMMON NORMALS: mental status grossly normal Urinary Catheter Management^: Flowers: Cath Placed During This Visit: yes, but has since been removed by the nurse Reason for Continuing Indwelling Catheter: Accurate Measurement of Urinary Output in Critically Ill Patients Urinary Catheter Date of Insertion: 08/05/20 Urinary Catheter Time of Insertion: 15:00 Date Urinary Catheter Removed: 08/09/20 Time Urinary Catheter Discontinued: 05:45 Data : 08/15/20 07:45 08/15/20 07:45 Micro: Microbiology 08/10/20 10:56 Blood Culture - Final Blood NO GROWTH AFTER 5 DAYS A&P Assessment and plan (1) Vertebral osteomyelitis: -With sepsis, improved -CT of abdomen pelvis shows:Lytic changes in the L3 and L4 vertebral bodies without adjacent inflammation. Indolent vertebral body osteomyelitis, metastatic disease or degenerative cystic changes in the vertebral bodies. -CT-of the cervical spine does not show any significant osteomyelitis -I went over CT scan findings with Dr. Cuellar, she feels that changes in vertebral bodies are likely related to osteomyelitis -Unfortunately patient cannot have a MRI given his body habitus -Unfortunately cannot perform a tagged white blood cell scan as he cannot fit in the machine -Unfortunate patient cannot have a CT-guided biopsy, due to his body habitus, difficulty accessing site -White blood cell count 16.6, ESR greater than 120, procalcitonin 1.97, CRP 118 -This is certainly a mixed picture, sepsis findings, given transaminitis, acute renal failure -Blood pressure normotensive, afebrile, saturating in the high 90s on room air -Lactic acid within normal limits -Inflammatory markers improving Plan: -Continue neurochecks -Continue bariatric bed -Needs to get up out of bed into bariatric chair -Placed on broad-spectrum antibiotic therapy Zyvox and Zosyn -Follow blood cultures, so far negative -Monitor clinical progress -Patient is on Solu-Medrol 250 every 24 hours, monitor blood sugars 3 times daily -DNR/DNI -Heparin for DVT prophylaxis -Patient was updated Status: Acute (2) Acute renal failure: -Etiology multifactorial's rhabdomyolysis and/or sepsis and or drug reaction and/or dress syndrome -Has not received any NSAIDs, is on lisinopril hydrochlorthiazide which has been held -Was on Lasix therapy -He does have a allergy to cephalexin, allergy unknown, patient is unsure what the allergy is, could he possibly have dress syndrome, however does not have significant eosinophilia on CBC -We will hold allopurinol as associate with dress syndrome,, Denis Diogo syndrome -CPK and uric acid are trending down -CT scan of the abdomen pelvis does not show any significant obstructive uro mitchell, or kidney stone, but it was a difficult study -Urine output 100 cc -Mild acidosis, hyponatremia, hypokalemia, uremia, hypocalcemia Plan: -Plan for hemodialysis today -Nephrology on consult -Urine studies no eosinophils seen -Peripheral smear -Trend CPK and uric acids -Urine output remains minimal -Dialysis catheter placement placement to right femoral vein -On Renvela, sodium bicarb -Nephrology consult Status: Acute (3) RLL pneumonia: Initially on chest x-ray patient was noted to have right lower lobe p neumonia for which she received treatment with ceftriaxone and azithromycin. Currently on Zyvox and Zosyn CT chest negative for consolidative process Status: Acute (4) Hypertension: -Hold Norvasc to 10 mg daily -Discontinue lisinopril given creatinine increase This is currently well controlled Status: Inactive (5) Diastolic CHF: -Cardiac echocardiogram shows EF of 55%, no regional wall motion abnormalities, poor quality study -d/c lasix , monitor urine output closely, Flowers catheter Status: Acute (6) Gout: Continue allopurinol Status: Acute (7) Bilateral lower extremity edema: Minimal today Status: Acute (8) Morbid obesity with BMI of 60.0-69.9, adult: Needs to follow-up with bariatric clinic, needs to be motivated to lose weight Status: Acute (9) Difficulty in walking: PT OT, however states unable to participate due to weakness Status: Acute (10) Bilateral primary osteoarthritis of hip: PT OT, pain control Status: Acute (11) HLD (hyperlipidemia): Continue simvastatin Status: Acute (12) Unable to ambulate: PT OT Status: Acute (13) Intractable pain: -Has some calf pain bilaterally, lower extremity Doppler negative for DVT Status: Acute (14) Sepsis: Status: Acute (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 -From allopurinol versus ceftriaxone -With transaminitis, acute renal failure, multiorgan dysfunction, I cannot see a rash -Continue Solu-Medrol 250 every 24 hours Status: Acute (16) Encephalopathy: -Much more alert, awake, oriented x3, at bedside, following all commands, cranial nerves II to XII grossly intact -ABG did not show any significant hypoxia or hypercarbia -Continue BiPAP overnight -The question is does he have meningitis in addition to vertebral osteomyelitis as the below, does not have any neck pain, no neck stiffness, no fevers, no nausea, vomiting, blurry vision, but will monitor closely -Neurochecks -Patient does have significant uremia, BUN 121, could have uremic encephalopathy component -Septic encephalopathy Status: Acute (17) Rhabdomyolysis: -Etiology of rhabdomyolysis is uncertain, patient has been immobile, in bed, been laying on his back, area vertebral osteomyelitis as a possible etiology -Certainly compartment syndrome could be an etiology - CT of his pelvis did show severe left hip osteoarthritis, no significant evidence of compartment syndrome Status: Acute (18) Hyperuricemia: Status: Acute (19) Transaminitis: Worsening today, hepatitis screen negative, Covid negative right upper quadrant ultrasound ordered Status: Acute Additional A&P Information Dvt ppx: Heparin Patient is a DNR/DNI Dispo: Likely requires alf facility placement Attestations Medical Necessity Statement*: Patient requires hospitalization for vertebral osteomyelitis, dress syndrome, acute renal failure Coding Level of Care Code Acute Practice Or Student Teacher for [facility] Fw Diagnoses Vertebral osteomyelitis M46.20 Acute renal failure N17.9 RLL pneumonia J18.9 Hypertension I10 Diastolic CHF I50.30 Gout M10.9 Bilateral lower extremity edema R60.0 Morbid obesity with BMI of 60.0-69.9, adult E66.01; Z68.44 Difficulty in walking R26.2 Bilateral primary osteoarthritis of hip M16.0 HLD (hyperlipidemia) E78.5 Unable to ambulate R26.2 Intractable pain R52 Sepsis A41.9 DRESS syndrome D72.12; T50.905A Encephalopathy G93.40 Rhabdomyolysis M62.82 Hyperuricemia E79.0 Transaminitis R74.01
[2020-08-15 11:58] LABS: Osmolality Urine 339 mOsm/kg (50-1200)
[2020-08-15 12:13] LABS: Glucose Point of Care 131 mg/dL (70-110)
[2020-08-15 13:08] LABS: KAPPA LIGHT CHAIN, FREE, SERUM 141.2 mg/L (3.3-19.4); KAPPA/LAMBDA LIGHT CHAINS FREE 1.59 (0.26-1.65)
[2020-08-15 13:38] LABS: Creatinine, Random Urine 172 mg/dL (20-320); Protein, Total, Random 541 mg/dL (5-25); Protein/Creatinine Ratio 3.145 (0.022-0.128); Protein/Creatinine Ratio 3145 mg/g creat (22-128)
[2020-08-15] MEDS: albumin 12.5 GM/50 ML VIAL IV (17:19)
[2020-08-15 18:03] LABS: Glucose Point of Care 112 mg/dL (70-110)
[2020-08-15] MEDS: linezolid premix 600 MG/300 ML PREMIX 300 MG IV (18:06)
[2020-08-15 22:31] LABS: Glucose Point of Care 156 mg/dL (70-110)
[2020-08-16] VITALS (9 sets, daily range): BP systolic 129–149; BP diastolic 66–78; PULSE 82–95; RESP 16–20; TEMP 36.5–37.1; O2SAT 91–98
[2020-08-16] MEDS: linezolid premix 600 MG/300 ML PREMIX 300 MG IV ×2 (05:03→19:15)
[2020-08-16] MEDS: heparin 5,000 unit/mL INJ 1 mL 5000 UNIT SUBCUT ×2 (05:03→19:14)
[2020-08-16 06:53] LABS: Glucose Point of Care 268 mg/dL (70-110)
--- NOTE | 2020-08-16 07:41 | NUR.SHIFT ---
Patient didn't have any complaints of pain and mainly slept through the night.
--- NOTE | 2020-08-16 08:23 | P.PN_ITS ---
Subjective Subjective: Interval history: more awake, feels better. dec sob. Medications: Reviewed: Yes Medication Review Details: Current Medications Bisacodyl (Bisacodyl 5 Mg Tablet) 10 mg PO DAILY PRN PRN Reason: CONSTIPATION Dextrose (Dextrose 50% Syringe 50 Ml) 25 ml IVP ONCE PRN; Protocol PRN Reason: hypoglycemia protocol Dextrose (Dextrose 50% Syringe 50 Ml) 50 ml IVP PRN PRN; Protocol PRN Reason: hypoglycemia protocol Dextrose (Dextrose 50% Syringe 50 Ml) 25 ml IVP ONCE PRN; Protocol PRN Reason: hypoglycemia protocol Dextrose (Dextrose 50% Syringe 50 Ml) 50 ml IVP PRN PRN; Protocol PRN Reason: hypoglycemia protocol Furosemide (Furosemide 10 Mg/Ml Sdv 10ml) 60 mg IVP Q12H INA Glucagon (Glucagon 1 Mg/Ml Inj 1 Ml) 1 mg IM ONCE PRN; Protocol PRN Reason: Adult Acute Hypoglycemia Prot. Glucagon (Glucagon 1 Mg/Ml Inj 1 Ml) 1 mg IM ONCE PRN; Protocol PRN Reason: Adult Acute Hypoglycemia Prot. Heparin Sodium (Beef Lung) (Heparin 5,000 Unit/Ml Inj 1 Ml) 5,000 unit SUBCUT Q12H INA Last Admin: 08/16/20 05:03 Dose: 5,000 unit Documented by: Linezolid (Zyvox Premix) 600 mg in 300 mls @ 300 mls/hr IV Q12H INA; Protocol Last Admin: 08/16/20 05:03 Dose: 300 mls/hr Documented by: Dextrose (D5w) 500 mls @ 100 mls/hr IV ONCE PRN; Protocol PRN Reason: Adult Acute Hypoglycemia Prot Piperacillin Sod/Tazobactam (Sod 3.375 gm/ Sodium Chloride) 50 mls @ 12.5 mls/hr IV Q12H INA; Protocol Last Admin: 08/15/20 20:30 Dose: 12.5 mls/hr Documented by: Dextrose (D5w) 500 mls @ 100 mls/hr IV ONCE PRN; Protocol PRN Reason: Adult Acute Hypoglycemia Prot Albumin Human (Albumin) 12.5 gm in 50 mls @ 60 mls/hr IV PRN PRN PRN Reason: Hypotension and/or symptomatic Last Admin: 08/15/20 17:19 Dose: 60 mls/hr Documented by: Insulin Aspart (Insulin Aspart 100 Unit/1 Ml) 0 unit SUBCUT TIDWM INA; Protocol Last Admin: 08/15/20 18:10 Dose: Not Given Documented by: Methylprednisolone Sodium Succinate (Methylprednisolone Sod Succ 125 Mg/2 Ml Inj) 250 mg IVP Q24H INA Last Admin: 08/15/20 18:08 Dose: 250 mg Documented by: Ondansetron HCl (Ondansetron 2 Mg/Ml Sdv 2 Ml) 4 mg IVP Q8H PRN PRN Reason: vomiting, or N/V if npo Pantoprazole Sodium (Pantoprazole Dr 40 Mg Tablet) 40 mg PO DAILY [facility] Sevelamer Carbonate (Sevelamer 800 Mg Tablet) 800 mg PO TID [facility] Last Admin: 08/15/20 20:30 Dose: 800 mg Documented by: Vitals/I&O/Wt Last Vital Signs Temp 97.9 F 08/16/20 04:00 Pulse 86 08/16/20 08:17 Resp 18 08/16/20 08:17 BP 148/78 08/16/20 04:00 Pulse Ox 94 08/16/20 08:17 08/15/20 08/16/20 08/16/20 22:59 06:59 14:59 Intake Total 300 / 470 Output Total 100 / 100 Balance 300 / 470 -100 / 370 Physical Exam Narrative: EXAM NARRATIVE: obese man in bed, more awake, comfortable- used bipap overnight VS noted heent- nc/at, eomi neck no jvp lungs- rales and crackles b/l improved heart reg abd soft, nt, nd, +BS ext b/l edema neuro- more awake and alert Urinary Catheter Management^: Flowers: Cath Placed During This Visit: yes, but has since been removed by the nurse Reason for Continuing Indwelling Catheter: Accurate Measurement of Urinary Output in Critically Ill Patients Urinary Catheter Date of Insertion: 08/05/20 Urinary Catheter Time of Insertion: 15:00 Date Urinary Catheter Removed: 08/09/20 Time Urinary Catheter Discontinued: 05:45 Data : 08/15/20 07:45 08/15/20 07:45 Micro: Microbiology 08/10/20 13:28 Blood Culture - Final Blood NO GROWTH AFTER 5 DAYS 08/10/20 10:56 Blood Culture - Final Blood NO GROWTH AFTER 5 DAYS A&P Additional A&P Information 65 yr old man Diastolic CHF, leg edema, htn, morbid obesity, gout, arthritis. Pt developed MAGGIE 1. Acute oligoanuric kidney injury due to ATN- from infection, hypotension, robert- i, thiazides, and NSAID use vs Q AIN. Has concominant rhabdomyolysis- CK improved to 1374 rhabdomyolysis -likely from immobility and MAGGIE -s/p HD x 2 -normal renal us -hold HD today, give lasix and monitor uop and chemistries -upep pending 2. 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 Hyperuricemia, hyperphosphatemia, hypermagnesemia - phos very high- binders 4. Hyperkalemia, metabolic acidosis -monitor w/ HD 5. RLL PNA- abx per medicine still w/ leukocytosis 6. htn- monitor w/ dialysis - improved 7. monitor mental status- improved w/ HD and bipap and abx 8. monitor lfts 9. diastolic dysfunction- monitor w/ lasix 10. morbid obesity discussed w/ d RN in detail Attestations Medical Necessity Statement*: MAGGIE, osteomyelitis, obesity Time Spent in Patient Care: 16 - 35 minutes Coding Level of Care Code Acute Capper Machine Operator for Corrie Ordonez
[2020-08-16 08:38] LABS: Albumin,Urine Random 43 %; Alpha-1-Globulins Urine Random 6 %; Alpha-2-Globulins Urine Random 12 %; Beta-Globulin,Urine Random 21 %; Gamma Globulin,Urine Random 19 %
[2020-08-16 08:41] LABS: Hematocrit 33.7 % (42.0-52.0); Hemoglobin 10.8 g/dL (11.7-16.6); Mean Corpuscular Hemoglobin 27.8 pg (28.0-34.0); Mean Corpuscular Volume 86.9 fL (80-94); Mean Platelet Volume 10.7 fL (7.4-10.4); Platelet Count 578 10^3/cmm (130-400); Red Blood Count 3.88 10^6/uL (4.1-5.3); Red Cell Distribution Width 14.9 % (12.1-15.1)
[2020-08-16 08:49] LABS: INR 1.16 (0.8-1.2)
[2020-08-16 08:59] LABS: C Reactive Protein 79.9 mg/L (0.0-4.9)
[2020-08-16 09:00] LABS: Lactate (Lactic Acid level) 1.6 mmol/L (0.5-2.2)
[2020-08-16 09:08] LABS: NT Pro B Type Natriuretic Pept 599 pg/mL (0-125)
[2020-08-16 09:19] LABS: Albumin Level 2.9 g/dL (3.5-5.2); Alkaline Phosphatase 247 IU/L (40-130); Calcium 7.7 mg/dL (8.5-10.5); Carbon Dioxide 17 mmol/L (22-29); Chloride 92 mmol/L (98-107); Globulin 2.9 g/dL (1.3-4.6); Glomerular Filtration Rate 8.6 mL/min (90-130); Glucose 199 mg/dL (65-115); Magnesium 2.9 mg/dL (1.7-2.3); Osmolality Calculated 318 mOsm/kg (285-295); Sodium 135 mmol/L (136-145); Total Bilirubin 0.7 mg/dL (0.15-1.2); Total Protein 5.8 g/dL (6.6-8.7); Uric Acid 10.9 mg/dL (3.4-7.0)
[2020-08-16 09:30] LABS: Alanine Aminotransferase 799 U/L (0-41)
[2020-08-16 09:41] LABS: Aspartate Amino Transferase 817 U/L (0-40); Blood Urea Nitrogen 103 mg/dL (8-23); Creatine Phosphokinase 1323 U/L (39-308)
[2020-08-16 09:42] LABS: Anion Gap 31.8 (5-19); Phosphorus 10.7 mg/dL (2.5-4.5); Potassium 5.8 mmol/L (3.5-5.1)
[2020-08-16 10:16] LABS: Slide Review Slide Review Perform
[2020-08-16 10:40] LABS: Absolute Segmented Neutrophil 12.8 10/cmm (1.6-7.1); Band Neutrophils Absolute 0.5 10^3/cmm (0.0-1.2); Eosinophils 0 %; Lymphocytes 6 %; Monocytes Absolute 0.3 10^3/cmm (0.1-0.6); Segmented Neutrophils 80 %; Total Cells Counted 100 (0-100)
[2020-08-16 10:41] LABS: Absolute Neutrophil 13.3 10^3/cmm (1.4-6.5); Platelet Estimate Normal (Normal)
[2020-08-16 11:43] LABS: Glucose Point of Care 172 mg/dL (70-110)
[2020-08-16] MEDS: predniSONE 20 mg Tablet 40 MG PO (12:07)
[2020-08-16] MEDS: piperacillin-tazobactam 3.375 GM in sodium chloride 0.9% (plus) 50 ML IV ×2 (12:08→20:59)
[2020-08-16] MEDS: FUROsemide 10 mg/mL SDV 10mL 60 MG IVP ×2 (12:08→19:13)
[2020-08-16] MEDS: pantoprazole DR 40 mg Tablet PO (12:08)
--- NOTE | 2020-08-16 13:44 | CTR_ITS ---
PROCEDURE INFORMATION: Exam: CT Abdomen And Pelvis With Contrast Exam date and time: 08/16/2020 4:22 AM Age: 65 years old Clinical indication: Other: Transaminitis; Additional info: Transaminitis, elevated alkphos TECHNIQUE: Imaging protocol: Computed tomography of the abdomen and pelvis with intravenous contrast. Radiation optimization: All CT scans at this facility use at least one of these dose optimization techniques: automated exposure control; mA and/or kV adjustment per patient size (includes targeted exams where dose is matched to clinical indication); or iterative reconstruction. Contrast material: VISI 320; Contrast volume: 95 ml; Contrast route: INTRAVENOUS (IV); COMPARISON: CT chest abd pel wo con 08/10/2020 11:17 AM RADIATION DOSE METRICS: Total DLP (mGy-cm): 2091.77 FINDINGS: Lungs: Mild patchy atelectasis at bilateral lung bases. Liver: Unremarkable. Gallbladder and bile ducts: Unremarkable. Pancreas: Unremarkable. Spleen: Unremarkable. Adrenal glands: Unremarkable. Kidneys and ureters: The kidneys are unremarkable. No renal stones identified. No hydronephrosis on either side. Stomach and bowel: No bowel obstruction identified. Diverticulosis of the descending and sigmoid colon without evidence of diverticulitis. Appendix: A structure possibly representing a normal appendix is seen in the right lower quadrant. No findings to suggest appendicitis. Intraperitoneal space: No free intraperitoneal air identified. No free intraperitoneal fluid identified. Vasculature: No abdominal aortic aneurysm. Lymph nodes: Unremarkable. Urinary bladder: Flowers catheter is noted in the bladder. The bladder is collapsed. Reproductive: Unremarkable as visualized. Bones/joints: Mild degenerative changes of the lower thoracic spine and the lumbar spine. Soft tissues: Unremarkable. CT/CT abdomen pelvis w con* [id number] IMPRESSION: 1. No acute intra-abdominal/intrapelvic process identified. Radiation Dose CTDIVOL = (mGy): DLP = 2091.77 (mGy-cm)
--- NOTE | 2020-08-16 13:46 | P.PN_ITS ---
Subjective Subjective: Interval history: This morning patient was examined, he has no particular complaints this morning, but he does need to talk to his , he tells me that he has a lot of work regarding the house that needs to be done, has been trying to reach her, but he cannot, no fevers, chills, no nausea, no vomiting, no lightheadedness, no dizziness Vitals/I&O/Wt Last Vital Signs Temp 98.7 F 08/16/20 12:00 Pulse 95 08/16/20 12:00 Resp 18 08/16/20 12:00 BP 143/66 08/16/20 12:00 Pulse Ox 98 08/16/20 10:51 08/15/20 08/16/20 08/16/20 22:59 06:59 14:59 Intake Total 300 / 470 50 / 520 Output Total 100 / 100 Balance 300 / 470 -50 / 420 Physical Exam Narrative: EXAM NARRATIVE: Morbidly obese male Large pannus Const: COMMON NORMALS: no acute distress and patient oriented x3 HENMT: COMMON NORMALS: normocephalic HEAD & SCALP: normocephalic Neck/C-Spine: COMMON NORMALS: no JVD Resp: COMMON NORMALS: normal respiratory effort, No retractions, No use of accessory muscles and clear to auscultation bilaterally AUSCULTATION: clear to auscultation bilaterally Cardio: COMMON NORMALS: no JVD, regular rate, regular rhythm, S1 normal heart sound present and S2 normal heart sound present RATE: regular rate RHYTHM: regular rhythm HEART SOUNDS: S1 normal heart sound present and S2 normal heart sound present GI: COMMON NORMALS: Normal to inspection, nondistended, normoactive bowel sounds present, Soft to palpation, non-tender, No hepatosplenomegaly present, no masses and no bruits PALPATION: Yes Soft to palpation and Yes No hepatosplenomegaly present Extremity: COMMON NORMALS: capillary refill normal, no clubbing, cyanosis or edema, no calf tenderness and no pedal edema NARRATIVE EXTREMITY EXAM: Diffuse anasarca Neuro: COMMON NORMALS: patient oriented x3 Psych: COMMON NORMALS: mental status grossly normal Skin: NARRATIVE SKIN EXAM: Right hemodialysis catheter placement to femoral vein Urinary Catheter Management^: Flowers: Cath Placed During This Visit: yes, but has since been removed by the nurse Reason for Continuing Indwelling Catheter: Accurate Measurement of Urinary Output in Critically Ill Patients Urinary Catheter Date of Insertion: 08/05/20 Urinary Catheter Time of Insertion: 15:00 Date Urinary Catheter Removed: 08/09/20 Time Urinary Catheter Discontinued: 05:45 Data : 08/16/20 08:25 08/16/20 08:25 Micro: Microbiology 08/10/20 13:28 Blood Culture - Final Blood NO GROWTH AFTER 5 DAYS 08/10/20 10:56 Blood Culture - Final Blood NO GROWTH AFTER 5 DAYS A&P Assessment and plan (1) Vertebral osteomyelitis: -With sepsis, improved -CT of abdomen pelvis shows:Lytic changes in the L3 and L4 vertebral bodies wi thout adjacent inflammation. Indolent vertebral body osteomyelitis, metastatic disease or degenerative cystic changes in the vertebral bodies. -CT-of the cervical spine does not show any significant osteomyelitis -I went over CT scan findings with Dr. Cuellar, she feels that changes in vertebral bodies are likely related to osteomyelitis -Unfortunately patient cannot have a MRI given his body habitus -Unfortunately cannot perform a tagged white blood cell scan as he cannot fit in the machine -Unfortunate patient cannot have a CT-guided biopsy, due to his body habitus, difficulty accessing site -White blood cell count 16.0, ESR greater than 120, procalcitonin 1.97 -This is certainly a mixed picture, sepsis findings, given transaminitis, acute renal failure -Blood pressure normotensive, afebrile, saturating in the high 90s on room air -Lactic acid within normal limits -Inflammatory markers improving Plan: -Continue neurochecks -Continue bariatric bed -Needs to get up out of bed into bariatric chair -Placed on broad-spectrum antibiotic therapy Zyvox and Zosyn -Follow blood cultures, so far negative -Monitor clinical progress -Decrease some to prednisone 40 mg daily -DNR/DNI -Heparin for DVT prophylaxis -Patient was updated Status: Acute (2) Acute renal failure: -Etiology multifactorial's rhabdomyolysis and/or sepsis and or drug reaction and/or dress syndrome -Has not received any NSAIDs, is on lisinopril hydrochlorthiazide which has been held -Was on Lasix therapy -He does have a allergy to cephalexin, allergy unknown, patient is unsure what the allergy is, could he possibly have dress syndrome, however does not have significant eosinophilia on CBC -We will hold allopurinol as associate with dress syndrome,, Denis Diogo syndrome -CPK and uric acid are trending down -CT scan of the abdomen pelvis does not show any significant obstructive uropathy, or kidney stone, but it was a difficult study -Urine output 100 cc -Mild acidosis, hyponatremia, hypokalemia, uremia, hypocalcemia Plan: -Hemodialysis as per nephrology team -Nephrology on consult -Urine studies no eosinophils seen -Peripheral smear toxic granulations, no eosinophils -Trend CPK and uric acids -Urine output remains minimal, but improving -Dialysis catheter placement placement to right femoral vein -On Renvela, sodium bicarb -Nephrology consult Status: Acute (3) RLL pneumonia: Initially on chest x-ray patient was noted to have right lower lobe pneumonia for which she received treatment with ceftriaxone and azithromycin. Currently on Zyvox and Zosyn CT chest negative for consolidative process Status: Acute (4) Hypertension: -Hold Norvasc to 10 mg daily -Discontinue lisinopril given creatinine increase This is currently well controlled Status: Inactive (5) Diastolic CHF: -Cardiac echocardiogram shows EF of 55%, no regional wall motion abnormalities, poor quality study -d/c lasix , monitor urine output closely, Flowers catheter Status: Acute (6) Gout: Continue allopurinol Status: Acute (7) Bilateral lower extremity edema: Minimal today Status: Acute (8) Morbid obesity with BMI of 60.0-69.9, adult: Needs to follow-up with bariatric clinic, needs to be motivated to lose weight Status: Acute (9) Difficulty in walking: PT OT, however states unable to participate due to weakness Status: Acute (10) Bilateral primary osteoarthritis of hip: PT OT, pain control Status: Acute (11) HLD (hyperlipidemia): Continue simvastatin Status: Acute (12) Unable to ambulate: PT OT Status: Acute (13) Intractable pain: -Has some calf pain bilaterally, lower extremity Doppler negative for DVT Status: Acute (14) Sepsis: Status: Acute (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 -From allopurinol versus ceftriaxone -With transaminitis, acute renal failure, multiorgan dysfunction, I cannot see a rash -De-escalate to prednisone 40 mg daily Status: Acute (16) Encephalopathy: -Much more alert, awake, oriented x3, at bedside, following all commands, cranial nerves II to XII grossly intact -ABG did not show any significant hypoxia or hypercarbia -Continue BiPAP overnight -The question is does he have meningitis in addition to vertebral osteomyelitis as the below, does not have any neck pain, no neck stiffness, no fevers, no nausea, vomiting, blurry vision, but will monitor closely -Neurochecks -Patient does have significant uremia, resolved -Septic encephalopathy, resolved Status: Acute (17) Rhabdomyolysis: -Etiology of rhabdomyolysis is uncertain, patient has been immobile, in bed, been laying on his back, area vertebral osteomyelitis as a possible etiology -Certainly compartment syndrome could be an etiology - CT of his pelvis did show severe left hip osteoarthritis, no significant evidence of compartment syndrome Status: Acute (18) Hyperuricemia: Status: Acute (19) Transaminitis: Worsening today Plan: -GGT, LDH, LFTs -We will do a CT scan of the abdomen pelvis with IV contrast to rule out ascending cholangitis -Etiologies could include ischemic hepatitis, toxin, sepsis -We will continue to monitor closely Status: Acute Additional A&P Information Dvt ppx: Heparin Patient is a DNR/DNI Dispo: Likely requires [facility] facility placement Attestations Medical Necessity Statement*: Patient requires hospitalization for vertebral osteomyelitis, acute renal failure, now with worsening transaminitis, improving rhabdo, encephalopathy has resolved, dress syndrome has improved Coding Level of Care Code Acute Digging Machine Operator for [facility] Fwd Diagnoses Vertebral osteomyelitis M46.20 Acute renal failure N17.9 RLL pneumonia J18.9 Hypertension I10 Diastolic CHF I50.30 Gout M10.9 Bilateral lower extremity edema R60.0 Morbid obesity with BMI of 60.0-69.9, adult E66.01; Z68.44 Difficulty in walking R26.2 Bilateral primary osteoarthritis of hip M16.0 HLD (hyperlipidemia) E78.5 Unable to ambulate R26.2 Intractable pain R52 Sepsis A41.9 DRESS syndrome D72.12; T50.905A Encephalopathy G93.40 Rhabdomyolysis M62.82 Hyperuricemia E79.0 Transaminitis R74.01
[2020-08-16] MEDS: sevelamer 800 mg Tablet 2400 MG PO ×2 (14:36→19:14)
[2020-08-16 16:03] LABS: Glucose Point of Care 162 mg/dL (70-110)
[2020-08-16 16:37] LABS: Gamma Glutamyl Transferase 330 U/L (8-61)
[2020-08-16 16:47] LABS: Total Bilirubin 0.8 mg/dL (0.15-1.2)
[2020-08-16 17:02] LABS: HIV 1 & 2 Antibody Non-Reactive (Non-Reactiv); HIV 1 & 2 Antigen Non-Reactive (Non-Reactiv); Lactate Dehydrogenase 1133 U/L (135-225)
[2020-08-16 17:05] LABS: Glucose Point of Care 198 mg/dL (70-110)
[2020-08-16 17:09] LABS: Hepatitis A Antibody IgM Non-Reactive (Nonreactive); Hepatitis B Core IgM Non-Reactive (Nonreactive); Hepatitis B Surface Antigen Non-Reactive (Nonreactive); Hepatitis C Virus Antibody Non-Reactive (Nonreactive)
[2020-08-16] MEDS: morphine 4 mg/mL SDV 1 mL 1 MG IVP (19:13)
[2020-08-16 22:05] LABS: Glucose Point of Care 178 mg/dL (70-110)
[2020-08-17] VITALS (8 sets, daily range): BP systolic 112–136; BP diastolic 61–72; PULSE 83–91; RESP 18–20; TEMP 36.4–37.2; O2SAT 94–98
[2020-08-17] MEDS: iodixanol 320 mg/mL 100mL Btl IV (04:25)
[2020-08-17] MEDS: heparin 5,000 unit/mL INJ 1 mL 5000 UNIT SUBCUT ×2 (05:34→17:12)
[2020-08-17] MEDS: linezolid premix 600 MG/300 ML PREMIX 300 MG IV ×2 (05:38→17:12)
[2020-08-17 06:14] LABS: Glucose Point of Care 133 mg/dL (70-110)
--- NOTE | 2020-08-17 06:43 | P.PN_ITS ---
Subjective Subjective: Interval history: confused, weak, lethargic. +uop Medications: Reviewed: Yes Medication Review Details: Current Medications Bisacodyl (Bisacodyl 5 Mg Tablet) 10 mg PO DAILY PRN PRN Reason: CONSTIPATION Dextrose (Dextrose 50% Syringe 50 Ml) 25 ml IVP ONCE PRN; Protocol PRN Reason: hypoglycemia protocol Dextrose (Dextrose 50% Syringe 50 Ml) 50 ml IVP PRN PRN; Protocol PRN Reason: hypoglycemia protocol Dextrose (Dextrose 50% Syringe 50 Ml) 25 ml IVP ONCE PRN; Protocol PRN Reason: hypoglycemia protocol Dextrose (Dextrose 50% Syringe 50 Ml) 50 ml IVP PRN PRN; Protocol PRN Reason: hypoglycemia protocol Furosemide (Furosemide 10 Mg/Ml Sdv 10ml) 60 mg IVP Q12H INA Last Admin: 08/16/20 19:13 Dose: 60 mg Documented by: Glucagon (Glucagon 1 Mg/Ml Inj 1 Ml) 1 mg IM ONCE PRN; Protocol PRN Reason: Adult Acute Hypoglycemia Prot. Glucagon (Glucagon 1 Mg/Ml Inj 1 Ml) 1 mg IM ONCE PRN; Protocol PRN Reason: Adult Acute Hypoglycemia Prot. Heparin Sodium (Beef Lung) (Heparin 5,000 Unit/Ml Inj 1 Ml) 5,000 unit SUBCUT Q12H INA Last Admin: 08/17/20 05:34 Dose: 5,000 unit Documented by: Linezolid (Zyvox Premix) 600 mg in 300 mls @ 300 mls/hr IV Q12H INA; Protocol Last Admin: 08/17/20 05:38 Dose: 300 mls/hr Documented by: Dextrose (D5w) 500 mls @ 100 mls/hr IV ONCE PRN; Protocol PRN Reason: Adult Acute Hypoglycemia Prot Piperacillin Sod/Tazobactam (Sod 3.375 gm/ Sodium Chloride) 50 mls @ 12.5 mls/hr IV Q12H INA; Protocol Last Admin: 08/16/20 20:59 Dose: 12.5 mls/hr Documented by: Dextrose (D5w) 500 mls @ 100 mls/hr IV ONCE PRN; Protocol PRN Reason: Adult Acute Hypoglycemia Prot Albumin Human (Albumin) 12.5 gm in 50 mls @ 60 mls/hr IV PRN PRN PRN Reason: Hypotension and/or symptomatic Last Admin: 08/15/20 17:19 Dose: 60 mls/hr Documented by: Insulin Aspart (Insulin Aspart 100 Unit/1 Ml) 0 unit SUBCUT TIDWM [facility]; Protocol Last Admin: 08/16/20 19:14 Dose: 4 unit Documented by: Ondansetron HCl (Ondansetron 2 Mg/Ml Sdv 2 Ml) 4 mg IVP Q8H PRN PRN Reason: vomiting, or N/V if npo Pantoprazole Sodium (Pantoprazole Dr 40 Mg Tablet) 40 mg PO DAILY [facility] Last Admin: 08/16/20 12:08 Dose: 40 mg Documented by: Prednisone (Prednisone 20 Mg Tablet) 40 mg PO DAILY [facility] Last Admin: 08/16/20 12:07 Dose: 40 mg Documented by: Sevelamer Carbonate (Sevelamer 800 Mg Tablet) 2,400 mg PO TIDWM [facility] Last Admin: 08/16/20 19:14 Dose: 2,400 mg Documented by: Vitals/I&O/Wt Last Vital Signs Temp 97.6 F 08/17/20 05:03 Pulse 84 08/17/20 05:03 Resp 20 H 08/17/20 05:03 BP 119/64 08/17/20 05:03 Pulse Ox 98 08/17/20 05:03 08/16/20 08/16/20 08/17/20 14:59 22:59 06:59 Intake Total 470 / 470 Balance 470 / 470 Physical Exam 2 Narrative: EXAM NARRATIVE: obese man in bed, sleepy, lethargic, confused VS noted heent- nc/at, eomi neck no jvp lungs- rales and crackles b/l improved heart reg abd soft, nt, nd, +BS ext b/l edema neuro- moves, confused Urinary Catheter Management^: Flowers: Cath Placed During This Visit: yes, but has since been removed by the nurse Reason for Continuing Indwelling Catheter: Accurate Measurement of Urinary Output in Critically Ill Patients Urinary Catheter Date of Insertion: 08/05/20 Urinary Catheter Time of Insertion: 15:00 Date Urinary Catheter Removed: 08/09/20 Time Urinary Catheter Discontinued: 05:45 Data : 08/16/20 08:25 08/16/20 08:25 Micro: Microbiology 08/16/20 15:51 Blood Culture - Preliminary Blood SPECIMEN COLLECTED 08/16/20 15:41 Blood Culture - Preliminary Blood SPECIMEN COLLECTED 08/11/20 14:45 Blood Culture - Final Blood NO GROWTH AFTER 5 DAYS 08/11/20 14:28 Blood Culture - Final Blood NO GROWTH AFTER 5 DAYS A&P Additional A&P Information 65 yr old man Diastolic CHF, leg edema, htn, morbid obesity, gout, arthritis. Pt developed MAGGIE 1. Acute oligoanuric kidney injury due to ATN- from infection, hypotension, robert- i, thiazides, and NSAID use vs Q AIN. Has concominant rhabdomyolysis- CK improved to 1374 rhabdomyolysis -likely from immobility and MAGGIE -s/p HD x 2 -normal renal us -confused, sob, hyperkalemic- hd now- 3.5 hrs, 2k, remove 2l -based on labs- likely needs a tunneled catheter -upep pending 2. 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 Hyperuricemia, hyperphosphatemia, hypermagnesemia - phos very high- binders 4. Hyperkalemia, metabolic acidosis -monitor w/ HD 5. RLL PNA- abx per medicine still w/ leukocytosis 6. htn- monitor w/ dialysis - improved - dec meds 7. monitor mental status w/ HD and bipap and abx 8. monitor lfts 9. diastolic dysfunction- monitor w/ lasix 10. morbid obesity 11. dec steroids if possible discussed w/ d RN in detail Attestations Medical Necessity Statement*: maggie, AMS Time Spent in Patient Care: 16 - 35 minutes Coding Level of Care Code Acute Leasing Coordinator for Corrie Ordonez
[2020-08-17 06:52] LABS: Basophils # 0.1 10^3/uL (0.0-0.1); Basophils % 0.4 %; Hematocrit 32.4 % (42.0-52.0); Lymphocytes # 1.2 10^3/uL (0.8-4.8); Lymphocytes % 6.5 %; Mean Corpuscular HGB Conc 30.9 g/dL (30.0-36.0); Mean Corpuscular Hemoglobin 27.2 pg (28.0-34.0); Mean Corpuscular Volume 88.3 fL (80-94); Mean Platelet Volume 10.5 fL (7.4-10.4); Monocytes # 1.1 10^3/uL (0.2-0.9); Monocytes % 5.9 %; Neutrophils # 14.41 10^3/uL (1.8-7.7); Neutrophils % 80.5 %; Nucleated Red Blood Cells % 0 %; Platelet Count 541 10^3/cmm (130-400); Red Blood Count 3.67 10^6/uL (4.1-5.3); Red Cell Distribution Width 15.2 % (12.1-15.1); White Blood Count 17.9 10^3/uL (4.0-10.0)
[2020-08-17 06:59] LABS: INR 1.26 (0.8-1.2)
[2020-08-17 07:04] LABS: C Reactive Protein 51.1 mg/L (0.0-4.9); Lactate (Lactic Acid level) 1.7 mmol/L (0.5-2.2)
[2020-08-17 08:07] LABS: NT Pro B Type Natriuretic Pept 633 pg/mL (0-125); Procalcitonin 1.52 ng/mL (0-0.5)
[2020-08-17 08:18] LABS: Albumin Level 2.5 g/dL (3.5-5.2); Alkaline Phosphatase 200 IU/L (40-130); Anion Gap 31.7 (5-19); Calcium 7.7 mg/dL (8.5-10.5); Carbon Dioxide 17 mmol/L (22-29); Chloride 88 mmol/L (98-107); Globulin 3.5 g/dL (1.3-4.6); Glomerular Filtration Rate 8.2 mL/min (90-130); Glucose 168 mg/dL (65-115); Magnesium 3.1 mg/dL (1.7-2.3); Potassium 5.7 mmol/L (3.5-5.1); Sodium 131 mmol/L (136-145); Total Bilirubin 0.7 mg/dL (0.15-1.2); Uric Acid 12.6 mg/dL (3.4-7.0)
[2020-08-17 08:30] LABS: Alanine Aminotransferase 1107 U/L (0-41)
[2020-08-17 09:03] LABS: Aspartate Amino Transferase 811 U/L (0-40); Blood Urea Nitrogen 146 mg/dL (8-23); Osmolality Calculated 323 mOsm/kg (285-295); Phosphorus 11.7 mg/dL (2.5-4.5)
[2020-08-17 09:04] LABS: Creatine Phosphokinase 713 U/L (39-308)
[2020-08-17] MEDS: piperacillin-tazobactam 3.375 GM in sodium chloride 0.9% (plus) 50 ML IV (10:55)
[2020-08-17] MEDS: pantoprazole DR 40 mg Tablet PO (10:58)
[2020-08-17] MEDS: predniSONE 20 mg Tablet 40 MG PO (10:58)
[2020-08-17] MEDS: sevelamer 800 mg Tablet 2400 MG PO ×3 (10:58→17:12)
[2020-08-17] MEDS: ciprofloxacin 500 mg Tablet 250 MG PO (10:58)
[2020-08-17] MEDS: heparin, porcine 1,000 unit/mL INJ 10 mL HE (10:59)
[2020-08-17] MEDS: FUROsemide 10 mg/mL SDV 10mL 60 MG IVP ×2 (10:59→18:52)
--- NOTE | 2020-08-17 11:56 | PC.SOCIAL ---
IMM Update Pg. 2 of IMM updated. Initialed, dated, and timed, and placed in chart. Copy left at bedside, as patient not in room.
[2020-08-17 13:01] LABS: Ammonia 27 umol/L (16-60)
[2020-08-17 13:03] LABS: Amylase 238 U/L (28-100); Lipase 257 U/L (13-60)
[2020-08-17 13:07] LABS: Acetaminophen < 5.0 ug/mL (10-30)
[2020-08-17] MEDS: HYDROcodone-acetaminophen 5-325 mg Tablet PO ×2 (13:07→18:51)
[2020-08-17 14:20] LABS: Immunoglobulin IGA 280 mg/dL (70-400); Immunoglobulin IGG 715 mg/dL (700-1600); Immunoglobulin IGM 77 mg/dL (40-230)
[2020-08-17 14:32] LABS: Hepatitis A Antibody IgM Non-Reactive (Nonreactive); Hepatitis B Core IgM Non-Reactive (Nonreactive); Hepatitis B Surface Antigen Non-Reactive (Nonreactive); Hepatitis C Virus Antibody Non-Reactive (Nonreactive)
--- NOTE | 2020-08-17 15:44 | PM.PN ---
Subjective Subjective: Interval history: This morning patient was examined while he was having dialysis, he is alert to person, place, time, moves all her extremities, his anasarca has improved, he tells me that he is feeling better, during that his dialysis his blood pressure did get quite low in the 60s over 40s, improved with fluid hydration he has no complaints this morning, went just wondering when he is going to go home Vitals/I&O/Wt Last Vital Signs Temp 98.9 F 08/17/20 15:23 Pulse 91 08/17/20 15:23 Resp 18 08/17/20 15:23 BP 112/61 08/17/20 15:23 Pulse Ox 94 08/17/20 15:23 08/17/20 08/17/20 08/17/20 06:59 14:59 22:59 Intake Total 50 / 520 120 / 120 Output Total 375 / 375 Balance -325 / 145 120 / 120 Physical Exam Narrative: EXAM NARRATIVE: Morbidly obese male Large pannus Const: COMMON NORMALS: no acute distress and patient oriented x3 HENMT: COMMON NORMALS: normocephalic HEAD & SCALP: normocephalic Neck/C-Spine: COMMON NORMALS: no JVD Resp: COMMON NORMALS: normal respiratory effort, No retractions, No use of accessory muscles and clear to auscultation bilaterally AUSCULTATION: clear to auscultation bilaterally Cardio: COMMON NORMALS: no JVD, regular rate, regular rhythm, S1 normal heart sound present and S2 normal heart sound present RATE: regular rate RHYTHM: regular rhythm HEART SOUNDS: S1 normal heart sound present and S2 normal heart sound present GI: COMMON NORMALS: Normal to inspection, nondistended, normoactive bowel sounds present, Soft to palpation, non-tender, No hepatosplenomegaly present, no masses and no bruits PALPATION: Yes Soft to palpation and Yes No hepatosplenomegaly present Extremity: COMMON NORMALS: capillary refill normal, no clubbing, cyanosis or edema, no calf tenderness and no pedal edema Neuro: COMMON NORMALS: patient oriented x3 Psych: COMMON NORMALS: mental status grossly normal Skin: NARRATIVE SKIN EXAM: Right hemodialysis catheter placement to femoral vein Urinary Catheter Management^: Flowers: Cath Placed During This Visit: yes, but has since been removed by the nurse Reason for Continuing Indwelling Catheter: Accurate Measurement of Urinary Output in Critically Ill Patients Urinary Catheter Date of Insertion: 08/05/20 Urinary Catheter Time of Insertion: 15:00 Date Urinary Catheter Removed: 08/09/20 Time Urinary Catheter Discontinued: 05:45 Data : 08/17/20 06:22 08/17/20 06:22 Micro: Microbiology 08/16/20 15:51 Blood Culture - Preliminary Blood SPECIMEN COLLECTED 08/16/20 15:41 Blood Culture - Preliminary Blood SPECIMEN COLLECTED 08/11/20 14:45 Blood Culture - Final Blood NO GROWTH AFTER 5 DAYS 08/11/20 14:28 Blood Culture - Final Blood NO GROWTH AFTER 5 DAYS A&P Assessment and plan (1) Vertebral osteomyelitis: -With sepsis, improved -CT of abdomen pelvis shows:Lytic changes in the L3 and L4 vertebral bodies without adjacent inflammation. Indolent vertebral body osteomyelitis, metastatic disease or degenerative cystic changes in the vertebral bodies. -CT-of the cervical spine does not show any significant osteomyelitis -I went over CT scan findings with Dr. Cuellar, she feels that changes in vertebral bodies are likely related to osteomyelitis -Unfortunately patient cannot have a MRI given his body habitus -Unfortunately cannot perform a tagged white blood cell scan as he cannot fit in the machine -Unfortunate patient cannot have a CT-guided biopsy, due to his body habitus, difficulty accessing site -White blood cell count 17.9, ESR greater than 120, procalcitonin 1.97 -This is certainly a mixed picture, sepsis findings, given transaminitis, acute renal failure -Blood pressure normotensive, afebrile, saturating in the high 90s on room air -Lactic acid within normal limits -Inflammatory markers improving -Persistent leukocytosis, neutrophilic likely secondary to prednisone Plan: -Continue neurochecks -Continue bariatric bed -Needs to get up out of bed into bariatric chair -Placed on broad-spectrum antibiotic therapy Zyvox and Zosyn -Follow blood cultures, so far negative -Monitor clinical progress -Decrease some to prednisone 40 mg daily -DNR/DNI -Heparin for DVT prophylaxis -Patient was updated Status: Acute (2) Acute renal failure: -Etiology multifactorial's rhabdomyolysis and/or sepsis and or drug reaction and/or dress syndrome -Has not received any NSAIDs, is on lisinopril hydrochlorthiazide which has been held -Was on Lasix therapy -He does have a allergy to cephalexin, allergy unknown, patient is unsure what the allergy is, could he possibly have dress syndrome, however does not have significant eosinophilia on CBC -We will hold allopurinol as associate with dress syndrome,, Denis Diogo syndrome -CPK and uric acid are trending down -CT scan of the abdomen pelvis does not show any significant obstructive uropathy, or kidney stone, but it was a difficult study -Urine output 375 cc -Mild acidosis, hyponatremia, hyperkalemia, uremia, hypocalcemia, elevated phosphorus, elevated magnesium, Plan: -Hemodialysis as per nephrology team -Nephrology on consult -Urine studies no eosinophils seen -Peripheral smear toxic granulations, no eosinophils -Trend CPK and uric acids, improving -Urine output remains minimal, but improving -Dialysis catheter placement placement to right femoral vein -On Renvela, sodium bicarb -Nephrology consult -Receiving Lasix for anasarca Status: Acute (3) RLL pneumonia: Initially on chest x-ray patient was noted to have right lower lobe pneumonia for which she received treatment with ceftriaxone and azithromycin. Currently on Zyvox and Zosyn CT chest negative for consolidative process, afebrile, on room air Status: Acute (4) Hypertension: -Hold Norvasc to 10 mg daily -Discontinue lisinopril given creatinine increase This is currently well controlled Status: Inactive (5) Diastolic CHF: -Cardiac echocardiogram shows EF of 55%, no regional wall motion abnormalities, poor quality study -d/c lasix , monitor urine output closely, Flowers catheter Status: Acute (6) Gout: Continue allopurinol Status: Acute (7) Bilateral lower extremity edema: Minimal today Status: Acute (8) Morbid obesity with BMI of 60.0-69.9, adult: Needs to follow-up with bariatric clinic, needs to be motivated to lose weight Status: Acute (9) Difficulty in walking: PT OT, however states unable to participate due to weakness Status: Acute (10) Bilateral primary osteoarthritis of hip: PT OT, pain control Status: Acute (11) HLD (hyperlipidemia): Continue simvastatin Status: Acute (12) Unable to ambulate: PT OT Status: Acute (13) Intractable pain: -Has some calf pain bilaterally, lower extremity Doppler negative for DVT Status: Acute (14) Sepsis: Status: Acute (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 -From allopurinol versus ceftriaxone -With transaminitis, acute renal failure, multiorgan dysfunction, I cannot see a rash -De-escalate to prednisone 40 mg daily Status: Acute (16) Encephalopathy: -Much more alert, awake, oriented x3, at bedside, following all commands, cranial nerves II to XII grossly intact -ABG did not show any significant hypoxia or hypercarbia -Continue BiPAP overnight -The question is does he have meningitis in addition to vertebral osteomyelitis as the below, does not have any neck pain, no neck stiffness, no fevers, no nausea, vomiting, blurry vision, but will monitor closely -Neurochecks -Patient does have significant uremia, resolved -Septic encephalopathy, resolved Status: Acute (17) Rhabdomyolysis: -Etiology of rhabdomyolysis is uncertain, patient has been immobile, in bed, been laying on his back, area vertebral osteomyelitis as a possible etiology -Certainly compartment syndrome could be an etiology, but unlikely - CT of his pelvis did show severe left hip osteoarthritis, no significant evidence of compartment syndrome Status: Acute (18) Hyperuricemia: Status: Acute (19) Transaminitis: Worsening today Plan: -GGT, LDH, LFTs -We will continue to monitor closely Status: Acute (20) Ischemic hepatitis: -Patient has worsening LFTs -AST 811 -ALT 1107 -Alk phos 200 -Ammonia 27 -Lipase 257 -Amylase 238 -INR 1.26 -GGT 330 -Total bili 0.7 -Acute hepatitis panel negative, HIV panel negative -Tylenol level negative -LOUIE, CMV, VZV, EBV pending, drug screen pending -CT scan of the abdomen pelvis with contrast liver unremarkable, gallbladder unremarkable, pancreas unremarkable, no biliary ductal dilatation -Right upper quadrant ultrasound shows hepatomegaly with diffuse fatty infiltration -Patient does have hypotensive episodes during dialysis, -Ischemic hepatitis likely secondary to sepsis, and hypotensive episodes during dialysis Plan: -Goal is to minimize hypotension -Minimize low blood pressures during dialysis -I have stopped all blood pressure medications -Continue to trend LFTs Status: Acute Additional A&P Information Dvt ppx: Heparin Patient is a DNR/DNI Dispo: Likely requires usp facility placement Attestations Medical Necessity Statement*: Patient requires hospitalization due to vertebral osteomyelitis, acute renal failure requiring dialysis, dress syndrome, now ischemic hepatitis Coding Level of Care Code Acute Contract Mail Carrier for [facility] Diagnoses Vertebral osteomyelitis M46.20 Acute renal failure N17.9 RLL pneumonia J18.9 Hypertension I10 Diastolic CHF I50.30 Gout M10.9 Bilateral lower extremity edema R60.0 Morbid obesity with BMI of 60.0-69.9, adult E66.01; Z68.44 Difficulty in walking R26.2 Bilateral primary osteoarthritis of hip M16.0 HLD (hyperlipidemia) E78.5 Unable to ambulate R26.2 Intractable pain R52 Sepsis A41.9 DRESS syndrome D72.12; T50.905A Encephalopathy G93.40 Rhabdomyolysis M62.82 Hyperuricemia E79.0 Transaminitis R74.01 Ischemic hepatitis K75.9
[2020-08-17 16:44] LABS: Glucose Point of Care 119 mg/dL (70-110)
[2020-08-17 22:13] LABS: Glucose Point of Care 130 mg/dL (70-110)
[2020-08-18] VITALS (7 sets, daily range): BP systolic 113–136; BP diastolic 58–75; PULSE 79–91; RESP 16–18; TEMP 36.5–37.4; O2SAT 93–96
[2020-08-18 05:21] LABS: Basophils % 0.2 %; Eosinophils % 0.1 %; Hematocrit 30.9 % (42.0-52.0); Hemoglobin 9.9 g/dL (11.7-16.6); Lymphocytes # 1.1 10^3/uL (0.8-4.8); Mean Corpuscular Hemoglobin 27.5 pg (28.0-34.0); Mean Corpuscular Volume 85.8 fL (80-94); Mean Platelet Volume 10.1 fL (7.4-10.4); Monocytes # 1.1 10^3/uL (0.2-0.9); Neutrophils # 14.68 10^3/uL (1.8-7.7); Neutrophils % 82.5 %; Nucleated Red Blood Cells % 0.1 %; Platelet Count 504 10^3/cmm (130-400); Red Cell Distribution Width 14.8 % (12.1-15.1); White Blood Count 17.8 10^3/uL (4.0-10.0)
[2020-08-18] MEDS: heparin 5,000 unit/mL INJ 1 mL 5000 UNIT SUBCUT ×2 (05:36→17:41)
[2020-08-18] MEDS: linezolid premix 600 MG/300 ML PREMIX 300 MG IV ×2 (05:36→18:48)
[2020-08-18 05:49] LABS: Ammonia 26 umol/L (16-60)
[2020-08-18 05:57] LABS: Albumin Level 2.5 g/dL (3.5-5.2); Alkaline Phosphatase 176 IU/L (40-130); Anion Gap 24.6 (5-19); Aspartate Amino Transferase 678 U/L (0-40); C Reactive Protein 36.5 mg/L (0.0-4.9); Carbon Dioxide 23 mmol/L (22-29); Chloride 92 mmol/L (98-107); Globulin 3.3 g/dL (1.3-4.6); Glomerular Filtration Rate 10.9 mL/min (90-130); Glucose 113 mg/dL (65-115); Magnesium 2.7 mg/dL (1.7-2.3); Osmolality Calculated 309 mOsm/kg (285-295); Potassium 5.6 mmol/L (3.5-5.1); Sodium 134 mmol/L (136-145); Total Bilirubin 0.7 mg/dL (0.15-1.2); Total Protein 5.8 g/dL (6.6-8.7)
[2020-08-18 06:02] LABS: Blood Urea Nitrogen 97 mg/dL (8-23); Phosphorus 9.6 mg/dL (2.5-4.5)
[2020-08-18 06:13] LABS: Alanine Aminotransferase 1176 U/L (0-41)
[2020-08-18 06:46] LABS: Slide Review Slide Review Perform
[2020-08-18 06:51] LABS: NT Pro B Type Natriuretic Pept 424 pg/mL (0-125); Procalcitonin 1.34 ng/mL (0-0.5); Uric Acid 9.2 mg/dL (3.4-7.0)
[2020-08-18 06:56] LABS: Creatine Phosphokinase 484 U/L (39-308)
[2020-08-18 07:22] LABS: Glucose Point of Care 127 mg/dL (70-110)
--- NOTE | 2020-08-18 07:50 | PM.PN ---
Subjective Subjective: Interval history: feels better. wants to go home. no n/v/f/c/deluna/d Medications: Reviewed: Yes Medication Review Details: Current Medications Hydrocodone Bitart/Acetaminophen (Hydrocodone-Acetaminophen 5-325 Mg Tablet) 1 - 2 tab PO Q6H PRN PRN Reason: MODERATE TO SEVERE PAIN Last Admin: 08/17/20 18:51 Dose: 1 tab Documented by: Bisacodyl (Bisacodyl 5 Mg Tablet) 10 mg PO DAILY PRN PRN Reason: CONSTIPATION Ciprofloxacin HCl (Ciprofloxacin 500 Mg Tablet) 250 mg PO DAILY INA; Protocol Last Admin: 08/17/20 10:58 Dose: 250 mg Documented by: Dextrose (Dextrose 50% Syringe 50 Ml) 25 ml IVP ONCE PRN; Protocol PRN Reason: hypoglycemia protocol Dextrose (Dextrose 50% Syringe 50 Ml) 50 ml IVP PRN PRN; Protocol PRN Reason: hypoglycemia protocol Dextrose (Dextrose 50% Syringe 50 Ml) 25 ml IVP ONCE PRN; Protocol PRN Reason: hypoglycemia protocol Dextrose (Dextrose 50% Syringe 50 Ml) 50 ml IVP PRN PRN; Protocol PRN Reason: hypoglycemia protocol Furosemide (Furosemide 10 Mg/Ml Sdv 10ml) 60 mg IVP Q12H INA Last Admin: 08/17/20 18:52 Dose: 60 mg Documented by: Glucagon (Glucagon 1 Mg/Ml Inj 1 Ml) 1 mg IM ONCE PRN; Protocol PRN Reason: Adult Acute Hypoglycemia Prot. Glucagon (Glucagon 1 Mg/Ml Inj 1 Ml) 1 mg IM ONCE PRN; Protocol PRN Reason: Adult Acute Hypoglycemia Prot. Heparin Sodium (Beef Lung) (Heparin 5,000 Unit/Ml Inj 1 Ml) 5,000 unit SUBCUT Q12H INA Last Admin: 08/18/20 05:36 Dose: 5,000 unit Documented by: Linezolid (Zyvox Premix) 600 mg in 300 mls @ 300 mls/hr IV Q12H INA; Protocol Last Admin: 08/18/20 05:36 Dose: 300 mls/hr Documented by: Dextrose (D5w) 500 mls @ 100 mls/hr IV ONCE PRN; Protocol PRN Reason: Adult Acute Hypoglycemia Prot Dextrose (D5w) 500 mls @ 100 mls/hr IV ONCE PRN; Protocol PRN Reason: Adult Acute Hypoglycemia Prot Albumin Human (Albumin) 12.5 gm in 50 mls @ 60 mls/hr IV PRN PRN PRN Reason: Hypotension and/or symptomatic Last Admin: 08/15/20 17:19 Dose: 60 mls/hr Documented by: Albumin Human (Albumin) 12.5 gm in 50 mls @ 60 mls/hr IV PRN PRN PRN Reason: Hypotension and/or symptomatic Insulin Aspart (Insulin Aspart 100 Unit/1 Ml) 0 unit SUBCUT TIDWM INA; Protocol Last Admin: 08/17/20 17:12 Dose: Not Given Documented by: Ondansetron HCl (Ondansetron 2 Mg/Ml Sdv 2 Ml) 4 mg IVP Q8H PRN PRN Reason: vomiting, or N/V if npo Pantoprazole Sodium (Pantoprazole Dr 40 Mg Tablet) 40 mg PO DAILY [facility] Last Admin: 08/17/20 10:58 Dose: 40 mg Documented by: Prednisone (Prednisone 20 Mg Tablet) 40 mg PO DAILY [facility] Last Admin: 08/17/20 10:58 Dose: 40 mg Documented by: Sevelamer Carbonate (Sevelamer 800 Mg Tablet) 2,400 mg PO TIDWM [facility] Last Admin: 08/17/20 17:12 Dose: 2,400 mg Documented by: Vitals/I&O/Wt Last Vital Signs Temp 99.0 F 08/18/20 04:00 Pulse 91 08/18/20 04:00 Resp 18 08/18/20 04:00 BP 113/58 08/18/20 04:00 Pulse Ox 95 08/18/20 04:00 08/17/20 08/18/20 08/18/20 22:59 06:59 14:59 Intake Total 300 / 420 Output Total 275 / 275 Balance 300 / 420 -275 / 145 Physical Exam Narrative: EXAM NARRATIVE: obese man in bed, comfortable, NARD VS noted heent- nc/at, eomi neck no jvp lungs- good air movement b/l heart reg,no rub abd soft, nt, nd, +BS ext b/l edema improved neuro- moves, a,a, o x 3 Urinary Catheter Management^: Flowers: Cath Placed During This Visit: yes, but has since been removed by the nurse Reason for Continuing Indwelling Catheter: Accurate Measurement of Urinary Output in Critically Ill Patients Urinary Catheter Date of Insertion: 08/05/20 Urinary Catheter Time of Insertion: 15:00 Date Urinary Catheter Removed: 08/09/20 Time Urinary Catheter Discontinued: 05:45 Data : 08/18/20 05:12 08/18/20 05:12 Micro: Microbiology 08/16/20 15:41 Blood Culture - Preliminary Blood NEGATIVE TO DATE 08/16/20 15:51 Blood Culture - Preliminary Blood NEGATIVE TO DATE A&P Additional A&P Information 65 yr old man Diastolic CHF, leg edema, htn, morbid obesity, gout, arthritis. Pt developed MAGGIE 1. Acute oligoanuric kidney injury due to ATN- from infection, hypotension, robert-i, thiazides, and NSAID use vs Q AIN. Has concominant rhabdomyolysis- CK improved to 1374 rhabdomyolysis -likely from immobility and MAGGIE -improved -s/p HD x 3 - not getting the best clearance as femoral catheter -normal renal us -hyperkalemic- hd now- 3.5 hrs, 1k, remove 1l -based on labs- likely needs a tunneled catheter - i left a message for Dr. barlow -upep- no m spike, high free kappa light chain. send lamda lightchain 2. Osteomyelitis, L3/L4, sepsis syndrome/DIC - all cultures neg to date osteoartitis of left hip - wbc remains 17.8 3. Hyperuricemia, hyperphosphatemia, hypermagnesemia - phos very high- binders - monitor w/ hd -meds reviewed 4. Hyperkalemia, metabolic acidosis -monitor w/ HD 5. RLL PNA- abx per medicine still w/ leukocytosis 6. htn- monitor w/ dialysis - improved - dec meds 7. monitor mental status w/ HD and bipap and abx 8. monitor lfts 9. diastolic dysfunction- monitor w/ lasix 10. morbid obesity 11. dec steroids if possible discussed w/ d RN in detail Attestations Medical Necessity Statement*: maggie, osteomyelitis Time Spent in Patient Care: 16 - 35 minutes Coding Level of Care Code Acute Ocular Care Technician for [facility] Ordonez
[2020-08-18] MEDS: predniSONE 20 mg Tablet 40 MG PO (08:21)
[2020-08-18] MEDS: ciprofloxacin 500 mg Tablet 250 MG PO (08:21)
[2020-08-18] MEDS: pantoprazole DR 40 mg Tablet PO (08:21)
[2020-08-18] MEDS: sevelamer 800 mg Tablet 2400 MG PO ×3 (08:21→17:41)
[2020-08-18 10:38] LABS: COMPLEMENT COMPONENT C3C 198 mg/dL (82-185); COMPLEMENT COMPONENT C4C 55 mg/dL (15-53)
[2020-08-18 10:57] LABS: Glucose Point of Care 121 mg/dL (70-110)
[2020-08-18] MEDS: HYDROcodone-acetaminophen 5-325 mg Tablet PO ×2 (11:02→18:05)
[2020-08-18] MEDS: heparin, porcine 1,000 unit/mL INJ 10 mL HE (11:04)
--- NOTE | 2020-08-18 11:24 | P.PN_ITS ---
Subjective Subjective: Interval history: This morning patient was examined, he sitting up into the bariatric chair, alert oriented x3, I had a discussion with patient about his motivations to go home, advised that he needs to participate with physical therapy, needs to do physical therapy in the chair, in bed, and see if we can get him up and ambulating Vitals/I&O/Wt Last Vital Signs Temp 97.7 F 08/18/20 08:00 Pulse 79 08/18/20 09:19 Resp 18 08/18/20 08:00 BP 136/75 08/18/20 08:00 Pulse Ox 96 08/18/20 09:19 08/17/20 08/18/20 08/18/20 22:59 06:59 14:59 Intake Total 300 / 420 300 / 720 240 / 240 Output Total 275 / 275 Balance 300 / 420 25 / 445 240 / 240 Physical Exam Narrative: EXAM NARRATIVE: Morbidly obese male Large pannus Const: COMMON NORMALS: no acute distress and patient oriented x3 HENMT: COMMON NORMALS: normocephalic HEAD & SCALP: normocephalic Neck/C-Spine: COMMON NORMALS: no JVD Resp: COMMON NORMALS: normal respiratory effort, No retractions, No use of accessory muscles and clear to auscultation bilaterally AUSCULTATION: clear to auscultation bilaterally Cardio: COMMON NORMALS: no JVD, regular rate, regular rhythm, S1 normal heart sound present and S2 normal heart sound present RATE: regular rate RHYTHM: regular rhythm HEART SOUNDS: S1 normal heart sound present and S2 normal heart sound present GI: COMMON NORMALS: Normal to inspection, nondistended, normoactive bowel sounds present, Soft to palpation, non-tender, No hepatosplenomegaly present, no masses and no bruits PALPATION: Yes Soft to palpation and Yes No hepatosplenomegaly present Extremity: COMMON NORMALS: capillary refill normal, no clubbing, cyanosis or edema, no calf tenderness and no pedal edema Neuro: COMMON NORMALS: patient oriented x3 Psych: COMMON NORMALS: mental status grossly normal Skin: NARRATIVE SKIN EXAM: Right hemodialysis catheter placement to femoral vein Urinary Catheter Management^: Flowers: Cath Placed During This Visit: yes, but has since been removed by the nurse Reason for Continuing Indwelling Catheter: Accurate Measurement of Urinary Outpu t in Critically Ill Patients Urinary Catheter Date of Insertion: 08/05/20 Urinary Catheter Time of Insertion: 15:00 Date Urinary Catheter Removed: 08/09/20 Time Urinary Catheter Discontinued: 05:45 Data : 08/18/20 05:12 08/18/20 05:12 Micro: Microbiology 08/16/20 15:41 Blood Culture - Preliminary Blood NEGATIVE TO DATE 08/16/20 15:51 Blood Culture - Preliminary Blood NEGATIVE TO DATE A&P Assessment and plan (1) Vertebral osteomyelitis: -With sepsis, improved -CT of abdomen pelvis shows:Lytic changes in the L3 and L4 vertebral bodies without adjacent inflammation. Indolent vertebral body osteomyelitis, metastatic disease or degenerative cystic changes in the vertebral bodies. -CT-of the cervical spine does not show any significant osteomyelitis -I went over CT scan findings with Dr. Cuellar, she feels that changes in vertebral bodies are likely related to osteomyelitis -Unfortunately patient cannot have a MRI given his body habitus -Unfortunately cannot perform a tagged white blood cell scan as he cannot fit in the machine -Unfortunate patient cannot have a CT-guided biopsy, due to his body habitus, difficulty accessing site -White blood cell count 17.8, ESR greater than 120, procalcitonin improving -This is certainly a mixed picture, sepsis findings, given transaminitis, acute renal failure -Blood pressure normotensive, afebrile, saturating in the high 90s on room air -Lactic acid within normal limits -Inflammatory markers improving -Persistent leukocytosis, neutrophilic likely secondary to prednisone Plan: -Continue neurochecks -Continue bariatric bed -Needs to get up out of bed into bariatric chair -Placed on broad-spectrum antibiotic therapy Zyvox and the escalated to Cipro -Follow blood cultures, so far negative -Monitor clinical progress -Decrease some to prednisone 40 mg daily -DNR/DNI -Heparin for DVT prophylaxis -Patient was updated -Discussed with PT OT, to do physical therapy in bariatric chair Status: Acute (2) Acute renal failure: -Etiology multifactorial's rhabdomyolysis and/or sepsis and or drug reaction and/or dress syndrome -Has not received any NSAIDs, is on lisinopril hydrochlorthiazide which has been held -Was on Lasix therapy -He does have a allergy to cephalexin, allergy unknown, patient is unsure what the allergy is, could he possibly have dress syndrome, however does not have significant eosinophilia on CBC -We will hold allopurinol as associate with dress syndrome,, Denis Diogo syndrome -CPK and uric acid are trending down -CT scan of the abdomen pelvis does not show any significant obstructive uropathy, or kidney stone, but it was a difficult study -Urine output 275 cc -Mild acidosis, hyponatremia, hyperkalemia, uremia, hypocalcemia, elevated phosphorus, elevated magnesium, Plan: -Hemodialysis as per nephrology team, were having issues with the femoral line, general surgery team feels uncomfortable at this point trying right internal jugular given body habitus, will see what patient's options are, cardiothoracic surgery comes back on August 22 -Nephrology on consult -Urine studies no eosinophils seen -Peripheral smear toxic granulations, no eosinophils -Trend CPK and uric acids, improving -Urine output remains minimal, but improving -Dialysis catheter placement placement to right femoral vein -On Renvela, sodium bicarb -Nephrology consult -Receiving Lasix for anasarca Status: Acute (3) RLL pneumonia: Initially on chest x-ray patient was noted to have right lower lobe pneumonia for which she received treatment with ceftriaxone and azithromycin. Currently on Zyvox and Zosyn CT chest negative for consolidative process, afebrile, on room air Status: Acute (4) Hypertension: -Hold Norvasc to 10 mg daily -Discontinue lisinopril given creatinine increase This is currently well controlled Status: Inactive (5) Diastolic CHF: -Cardiac echocardiogram shows EF of 55%, no regional wall motion abnormalities, poor quality study -d/c lasix , monitor urine output closely, Flowers catheter Status: Acute (6) Gout: Continue allopurinol Status: Acute (7) Bilateral lower extremity edema: Minimal today Status: Acute (8) Morbid obesity with BMI of 60.0-69.9, adult: Needs to follow-up with bariatric clinic, needs to be motivated to lose weight Status: Acute (9) Difficulty in walking: PT OT, however states unable to participate due to weakness Status: Acute (10) Bilateral primary osteoarthritis of hip: PT OT, pain control Status: Acute (11) HLD (hyperlipidemia): Continue simvastatin Status: Acute (12) Unable to ambulate: PT OT Status: Acute (13) Intractable pain: -Has some calf pain bilaterally, lower extremity Doppler negative for DVT Status: Acute (14) Sepsis: Status: Acute (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 -From allopurinol versus ceftriaxone -With transaminitis, acute renal failure, multiorgan dysfunction, I cannot see a rash -Prednisone has been stopped Status: Acute (16) Encephalopathy: -Much more alert, awake, oriented x3, at bedside, following all commands, cranial nerves II to XII grossly intact -ABG did not show any significant hypoxia or hypercarbia -Continue BiPAP overnight -The question is does he have meningitis in addition to vertebral osteomyelitis as the below, does not have any neck pain, no neck stiffness, no fevers, no charly sea, vomiting, blurry vision, but will monitor closely -Neurochecks -Patient does have significant uremia, resolved -Septic encephalopathy, resolved Status: Acute (17) Rhabdomyolysis: -Etiology of rhabdomyolysis is uncertain, patient has been immobile, in bed, been laying on his back, area vertebral osteomyelitis as a possible etiology -Certainly compartment syndrome could be an etiology, but unlikely - CT of his pelvis did show severe left hip osteoarthritis, no significant evidence of compartment syndrome Status: Acute (18) Hyperuricemia: Status: Acute (19) Transaminitis: Worsening today Plan: -GGT, LDH, LFTs -We will continue to monitor closely Status: Acute (20) Ischemic hepatitis: -LFTs have stabilized -AST 678 -ALT 1176 -Alk phos 176 -Ammonia 26 -INR 1.20 -GGT 330 -Total bili 0.7 -Acute hepatitis panel negative, HIV panel negative -Tylenol level negative -LOUIE, CMV, VZV, EBV pending, drug screen pending -CT scan of the abdomen pelvis with contrast liver unremarkable, gallbladder un remarkable, pancreas unremarkable, no biliary ductal dilatation -Right upper quadrant ultrasound shows hepatomegaly with diffuse fatty infiltration -Patient does have hypotensive episodes during dialysis, -Ischemic hepatitis likely secondary to sepsis, and hypotensive episodes during dialysis Plan: -Goal is to minimize hypotension -Minimize low blood pressures during dialysis -I have stopped all blood pressure medications -Continue to trend LFTs Status: Acute Additional A&P Information Dvt ppx: Heparin Patient is a DNR/DNI Dispo: Likely requires custodial facility placement Attestations Medical Necessity Statement*: Cards hospitalization for acute renal failure requiring dialysis, vertebral osteomyelitis, rhabdomyolysis, hyperphosphatemia, hyperkalemia, hypocalcemia, ischemic hepatitis Time Spent in Patient Care: Greater than 35 minutes (>than 50% of time spent in counselling and/or direct pt care on unit) . Coding Level of Care Code Acute Dice Table Operator for Chg Fwd Diagnoses Vertebral osteomyelitis M46.20 Acute renal failure N17.9 RLL pneumonia J18.9 Hypertension I10 Diastolic CHF I50.30 Gout M10.9 Bilateral lower extremity edema R60.0 Morbid obesity with BMI of 60.0-69.9, adult E66.01; Z68.44 Difficulty in walking R26.2 Bilateral primary osteoarthritis of hip M16.0 HLD (hyperlipidemia) E78.5 Unable to ambulate R26.2 Intractable pain R52 Sepsis A41.9 DRESS syndrome D72.12; T50.905A Encephalopathy G93.40 Rhabdomyolysis M62.82 Hyperuricemia E79.0 Transaminitis R74.01 Ischemic hepatitis K75.9
[2020-08-18 11:42] LABS: EBV IGG TEST >750.00 U/mL; EBV IGM TEST <36.00 U/mL
[2020-08-18 12:42] LABS: COMPLEMENT, TOTAL (CH50) >60 U/mL (31-60)
[2020-08-18 13:12] LABS: Cytomegalovirus Antibody (IGG) <0.60 U/mL; Cytomegalovirus Antibody (IGM) <30.00 AU/mL
[2020-08-18 14:14] LABS: THYROID PEROXIDASE ANTIBODIES <1 IU/mL (<9)
[2020-08-18 15:18] LABS: CENTROMERE B ANTIBODY <1.0 NEG AI (<1.0 NEG); JO-1 ANTIBODY <1.0 NEG AI (<1.0 NEG); RNP ANTIBODY <1.0 NEG AI (<1.0 NEG); SCL-70 ANTIBODY <1.0 NEG AI (<1.0 NEG); SJOGREN'S ANTIBODY (SS-A) <1.0 NEG AI (<1.0 NEG); SM ANTIBODY <1.0 NEG AI (<1.0 NEG); SS-B <1.0 NEG AI (<1.0 NEG)
[2020-08-18 17:31] LABS: Glucose Point of Care 109 mg/dL (70-110)
[2020-08-18 21:25] LABS: Glucose Point of Care 132 mg/dL (70-110)
[2020-08-19] VITALS (13 sets, daily range): BP systolic 102–145; BP diastolic 58–80; PULSE 83–103; RESP 16–20; TEMP 36.3–37.2; O2SAT 93–98
--- NOTE | 2020-08-19 | SCC_ITS ---
Procedure Done: 1. Placement of 16 Fr. 31 cm HemoSplit long-term dialysis catheter into the right internal jugular vein using intraoperative ultrasound guidance and intraoperative fluoroscopy. 2. Removal of right femoral vein temporary dialysis catheter. 3.2 seconds of fluoroscopic guidance, for a cumulative dose of 0.98 mGy, was provided to Dr. Chino by the radiology department. C-arm images of the chest were saved for the patient's permanent record. COLT
[2020-08-19] MEDS: linezolid premix 600 MG/300 ML PREMIX 300 MG IV ×2 (05:30→17:44)
[2020-08-19] MEDS: heparin 5,000 unit/mL INJ 1 mL 5000 UNIT SUBCUT ×2 (05:30→17:45)
[2020-08-19 06:21] LABS: Basophils % 0.1 %; Eosinophils # 0.1 10^3/uL (0.0-0.8); Eosinophils % 0.3 %; Hematocrit 32.9 % (42.0-52.0); Hemoglobin 10.4 g/dL (11.7-16.6); Lymphocytes # 1.4 10^3/uL (0.8-4.8); Mean Corpuscular HGB Conc 31.6 g/dL (30.0-36.0); Mean Corpuscular Volume 88.4 fL (80-94); Mean Platelet Volume 10.6 fL (7.4-10.4); Monocytes # 1.5 10^3/uL (0.2-0.9); Monocytes % 7.3 %; Neutrophils # 16.49 10^3/uL (1.8-7.7); Neutrophils % 81.8 %; Nucleated Red Blood Cells % 0 %; Platelet Count 507 10^3/cmm (130-400); Red Blood Count 3.72 10^6/uL (4.1-5.3); Red Cell Distribution Width 15.2 % (12.1-15.1); White Blood Count 20.2 10^3/uL (4.0-10.0)
[2020-08-19 06:36] LABS: INR 1.17 (0.8-1.2)
[2020-08-19 06:44] LABS: Albumin Level 2.5 g/dL (3.5-5.2); Alkaline Phosphatase 175 IU/L (40-130); Anion Gap 20.5 (5-19); Aspartate Amino Transferase 584 U/L (0-40); Blood Urea Nitrogen 63 mg/dL (8-23); C Reactive Protein 24.8 mg/L (0.0-4.9); Calcium 8.2 mg/dL (8.5-10.5); Carbon Dioxide 25 mmol/L (22-29); Chloride 94 mmol/L (98-107); Globulin 3.2 g/dL (1.3-4.6); Glomerular Filtration Rate 15.1 mL/min (90-130); Glucose 133 mg/dL (65-115); Magnesium 2.5 mg/dL (1.7-2.3); Osmolality Calculated 300 mOsm/kg (285-295); Potassium 4.5 mmol/L (3.5-5.1); Sodium 135 mmol/L (136-145); Total Bilirubin 0.8 mg/dL (0.15-1.2); Total Protein 5.7 g/dL (6.6-8.7)
[2020-08-19 06:45] LABS: Lactate (Lactic Acid level) 1.5 mmol/L (0.5-2.2)
[2020-08-19 06:56] LABS: NT Pro B Type Natriuretic Pept 287 pg/mL (0-125); Procalcitonin 1.03 ng/mL (0-0.5)
[2020-08-19 07:03] LABS: Phosphorus 7.8 mg/dL (2.5-4.5)
[2020-08-19 07:06] LABS: Glucose Point of Care 108 mg/dL (70-110)
[2020-08-19 07:06] LABS: Uric Acid 7.2 mg/dL (3.4-7.0)
[2020-08-19 07:07] LABS: Alanine Aminotransferase 1092 U/L (0-41)
[2020-08-19 07:25] LABS: Creatine Phosphokinase 412 U/L (39-308)
--- NOTE | 2020-08-19 07:58 | PM.PN ---
Subjective Subjective: Interval history: I was asked yesterday to consider reattempting a tunneled hemodialysis catheter placement is more of a long-term solution for the patient's dialysis. It does not sound like the femoral catheter may be pulling quite as well as was hoped. I had suggested perhaps discussing with Dr. Ta, but he is not going to be available for several more days. I also discussed it with Dr. Koch, who is on-call, but he is not comfortable given the patient's size. I have rediscussed the issue with the patient this morning. He said he would be willing to have us try one more time. Vitals/I&O/Wt Last Vital Signs Temp 98.0 F 08/19/20 04:00 Pulse 88 08/19/20 04:00 Resp 18 08/19/20 04:00 BP 145/75 08/19/20 04:00 Pulse Ox 95 08/19/20 04:00 08/18/20 08/19/20 08/19/20 22:59 06:59 14:59 Intake Total 540 / 780 Output Total 550 / 550 Balance 540 / 230 -550 / -550 Physical Exam Narrative: EXAM NARRATIVE: The base of the neck has a couple small contusions but otherwise is unchanged from prior. Urinary Catheter Management^: Flowers: Cath Placed During This Visit: yes, but has since been removed by the nurse Reason for Continuing Indwelling Catheter: Accurate Measurement of Urinary Output in Critically Ill Patients Urinary Catheter Date of Insertion: 08/05/20 Urinary Catheter Time of Insertion: 15:00 Date Urinary Catheter Removed: 08/09/20 Time Urinary Catheter Discontinued: 05:45 Data : 08/19/20 06:05 08/19/20 06:05 A&P Assessment and plan (1) Acute renal failure: I have rediscussed tunneled hemodialysis catheter placement with the patient. He seems to understand and is agreeable to proceeding this morning. Status: Acute Attestations Medical Necessity Statement*: See admitting service's notation. Coding Level of Care Code Acute Property Insurance Claims Examiner for Corrie Ordonez Diagnoses Acute renal failure N17.9
--- NOTE | 2020-08-19 08:37 | SC_ITS ---
WS: [id number] C-ARM RADIOGRAPHS CHEST; 2 IMAGES HISTORY: DIALYSIS CATHETER PLACEMENT COMPARISON: None available. Intraoperative imaging during dialysis catheter placement. Imaging is limited. SC/C-arm FL for CVA [id number] IMPRESSION: Intraoperative imaging during dialysis catheter placement.
--- NOTE | 2020-08-19 08:57 | P.ANESASSM_ITS ---
Pre-Anesthetic Assessment Pre-Anesthetic Assessment: Height/Weight: Height 1.73 m Weight 181.437 kg Temp Pulse Resp BP Pulse Ox 98.0 F 88 18 145/75 95 08/19/20 04:00 08/19/20 04:00 08/19/20 04:00 08/19/20 04:00 08/19/20 04:00 Preop Diagnosis: Acute kidney injury/renal failure. Proposed Procedure: Operation Date: 08/14/20 08:20 Proposed Procedures p Dialysis Catheter Insertion(Not Applicable) - Eddie Chino MD Operation Date: 08/19/20 09:00 Proposed Procedures p Dialysis Catheter Insertion(Not Applicable) - Eddie Chino MD Last intake: Intake Last Liquid Date 08/14/20 Last Liquid Time 00:00 Last Solid Date 08/14/20 Last Solid Time 00:00 Social: Social History: No alcohol Exam: Pre-Anes Outpt Exam: alert, oriented x 3, clear to auscultation bilaterally and regular rate & rhythm Airway: Cervical ROM: WNL MP: 2 Pulmonary: Pulmonary: Sleep apnea (uses cpap) : : Chronic renal failure Hepatic: Hepatic: None reported GI: GI: None reported Metabolic: Metabolic: DM and Morbid obesity Musc/skel: Musc/skel: None reported Neuropsych: Neuropsych: Anxiety and Depression Anesthetic Plan: ASA status: 4E Anesthesia: Anesthesia Evaluation and General Risk of > 500 ml blood loss (7ml/kg in children): No Meds/Allergies Current Medications: Current Medications Generic Name Dose Route Start Last Admin Trade Name Freq PRN Reason Stop Dose Admin Hydrocodone Bitart /Acetaminophen 1 - 2 tab 08/17/20 17:04 08/18/20 18:05 Hydrocodone-Acet aminophen 5-325 Mg Tablet PO 2 tab Q6H PRN Administration MODERATE TO SEVER E PAIN Ciprofloxacin HCl 250 mg 08/17/20 11:00 08/18/20 08:21 Ciprofloxacin 50 0 Mg Tablet PO 250 mg DAILY INA Administration Protocol Heparin Sodium (Be ef Lung) 5,000 unit 08/12/20 17:00 08/19/20 05:30 Heparin 5,000 Un it/Ml Inj 1 Ml SUBCUT 5,000 unit Q12H INA Administration Linezolid 600 mg in 300 mls @ 300 mls/hr 08/11/20 11:00 08/19/20 05:30 Zyvox Premix IV 300 mls/hr Q12H INA Administration Protocol Albumin Human 12.5 gm in 50 mls @ 60 mls/hr 08/15/20 07:17 08/15/20 18:09 Albumin IV Infused PRN PRN Infusion Hypotension and/o r symptomatic Insulin Aspart 0 unit 08/14/20 12:00 08/19/20 08:09 Insulin Aspart 1 00 Unit/1 Ml SUBCUT Not Given TIDWM INA Protocol Pantoprazole Sodiu m 40 mg 08/16/20 09:00 08/18/20 08:[address] 40 Mg Tablet PO 40 mg DAILY INA Administration Sevelamer Carbonat e 2,400 mg 08/16/20 09:00 08/18/20 17:41 Sevelamer 800 Mg Tablet PO 2,400 mg TIDWM INA Administration Additional Medication Information: Current Medications Hydrocodone Bitart/Acetaminophen (Hydrocodone-Acetaminophen 5-325 Mg Tablet) 1 - 2 tab PO Q6H PRN PRN Reason: MODERATE TO SEVERE PAIN Last Admin: 08/17/20 18:51 Dose: 1 tab Documented by: Bisacodyl (Bisacodyl 5 Mg Tablet) 10 mg PO DAILY PRN PRN Reason: CONSTIPATION Ciprofloxacin HCl (Ciprofloxacin 500 Mg Tablet) 250 mg PO DAILY INA; Protocol Last Admin: 08/17/20 10:58 Dose: 250 mg Documented by: Dextrose (Dextrose 50% Syringe 50 Ml) 25 ml IVP ONCE PRN; Protocol PRN Reason: hypoglycemia protocol Dextrose (Dextrose 50% Syringe 50 Ml) 50 ml IVP PRN PRN; Protocol PRN Reason: hypoglycemia protocol Dextrose (Dextrose 50% Syringe 50 Ml) 25 ml IVP ONCE PRN; Protocol PRN Reason: hypoglycemia protocol Dextrose (Dextrose 50% Syringe 50 Ml) 50 ml IVP PRN PRN; Protocol PRN Reason: hypoglycemia protocol Furosemide (Furosemide 10 Mg/Ml Sdv 10ml) 60 mg IVP Q12H INA Last Admin: 08/17/20 18:52 Dose: 60 mg Documented by: Glucagon (Glucagon 1 Mg/Ml Inj 1 Ml) 1 mg IM ONCE PRN; Protocol PRN Reason: Adult Acute Hypoglycemia Prot. Glucagon (Glucagon 1 Mg/Ml Inj 1 Ml) 1 mg IM ONCE PRN; Protocol PRN Reason: Adult Acute Hypoglycemia Prot. Heparin Sodium (Beef Lung) (Heparin 5,000 Unit/Ml Inj 1 Ml) 5,000 unit SUBCUT Q12H INA Last Admin: 08/18/20 05:36 Dose: 5,000 unit Documented by: Linezolid (Zyvox Premix) 600 mg in 300 mls @ 300 mls/hr IV Q12H INA; Protocol Last Admin: 08/18/20 05:36 Dose: 300 mls/hr Documented by: Dextrose (D5w) 500 mls @ 100 mls/hr IV ONCE PRN; Protocol PRN Reason: Adult Acute Hypoglycemia Prot Dextrose (D5w) 500 mls @ 100 mls/hr IV ONCE PRN; Protocol PRN Reason: Adult Acute Hypoglycemia Prot Albumin Human (Albumin) 12.5 gm in 50 mls @ 60 mls/hr IV PRN PRN PRN Reason: Hypotension and/or symptomatic Last Admin: 08/15/20 17:19 Dose: 60 mls/hr Documented by: Albumin Human (Albumin) 12.5 gm in 50 mls @ 60 mls/hr IV PRN PRN PRN Reason: Hypotension and/or symptomatic Insulin Aspart (Insulin Aspart 100 Unit/1 Ml) 0 unit SUBCUT TIDWM INA; Protocol Last Admin: 08/17/20 17:12 Dose: Not Given Documented by: Ondansetron HCl (Ondansetron 2 Mg/Ml Sdv 2 Ml) 4 mg IVP Q8H PRN PRN Reason: vomiting, or N/V if npo Pantoprazole Sodium (Pantoprazole Dr 40 Mg Tablet) 40 mg PO DAILY INA Last Admin: 08/17/20 10:58 Dose: 40 mg Documented by: Prednisone (Prednisone 20 Mg Tablet) 40 mg PO DAILY INA Last Admin: 08/17/20 10:58 Dose: 40 mg Documented by: Sevelamer Carbonate (Sevelamer 800 Mg Tablet) 2,400 mg PO TIDWM INA Last Admin: 08/17/20 17:12 Dose: 2,400 mg Documented by: PFSH Anesthesia PFS: Medical History (Updated 08/17/20 @ 15:48 by Tremaine Ferrari MD) Arthritis Bilateral primary osteoarthritis of hip Diastolic CHF Gout HLD (hyperlipidemia) Hypertension Surgical History (Updated 08/04/20 @ 15:08 by Tremaine Ferrari MD) H/O vein stripping H/O ventral hernia repair Family History (Updated 08/04/20 @ 15:09 by Tremaine Ferrari MD) Father CAD (coronary artery disease) Mother Aspiration pneumonia Social History (Updated 07/28/20 @ 10:07 by Nicholas Jaimes LPN) Smoking and tobacco status: never smoked Alcohol intake: never Current occupational status: retired Data Anesthesia CBC & Chem 7: 08/19/20 06:05 08/19/20 06:05 Other Labs: Laboratory Results - last 48 hr 08/17/20 08/17/20 08/17/20 06:22 12:05 12:05 WBC RBC Hgb Hct MCV MCH MCHC RDW Plt Count MPV Neut % (Auto) Lymph % (Auto) Power % (Auto) Eos % (Auto) Baso % (Auto) Neut # (Auto) Lymph # (Auto) Power # (Auto) Eos # (Auto) Baso # (Auto) Nucleated RBC % (auto) Nucleated RBCs # PT INR Sodium 131 L Potassium 5.7 H Chloride 88 L Carbon Dioxide 17 L Anion Gap 31.7 H BUN 146 H* Creatinine 6.8 H* GFR Calculation 8.2 L Glucose 168 H POC Glucose Calculated Osmolality 323 H Lactate Uric Acid 12.6 H Calcium 7.7 L Phosphorus 11.7 H* Magnesium 3.1 H Total Bilirubin AST 811 H ALT 1107 H Alkaline Phosphatase 200 H Ammonia 27 Creatine Kinase 713 H* C-Reactive Protein NT-Pro-B Natriuret Pep Total Protein 6.0 L Albumin 2.5 L Globulin Amylase Lipase Procalcitonin Acetaminophen IgG IgA IgM RADHA-1 Antibody SS-A Antibody SS-B Antibody Sm (Abrams) Antibody UI DEVELOPER DESIGNER Antibody Scl-70 Antibody Centromere B Antibody Thyroid Peroxidase Ab Complement C3c Complement C4c CH50 Classical Pathway CMV IgG Ab CMV IgM Ab EBV IgG Ab EBV IgM Ab EBV Capsid Ag IgG, IgM EBV Nuclear Antigen EBV Interpretation Hepatitis A IgM Ab Non-reactive Hep Bs Antigen Non-reactive Hep B Core IgM Ab Non-reactive Hepatitis C Antibody Non-reactive 08/17/20 08/17/20 08/17/20 12:05 12:05 12:05 WBC RBC Hgb Hct MCV MCH MCHC RDW Plt Count MPV Neut % (Auto) Lymph % (Auto) Power % (Auto) Eos % (Auto) Baso % (Auto) Neut # (Auto) Lymph # (Auto) Power # (Auto) Eos # (Auto) Baso # (Auto) Nucleated RBC % (auto) Nucleated RBCs # PT INR Sodium Potassium Chloride Carbon Dioxide Anion Gap BUN Creatinine GFR Calculation Glucose POC Glucose Calculated Osmolality Lactate Uric Acid Calcium Phosphorus Magnesium Total Bilirubin AST ALT Alkaline Phosphatase Ammonia Creatine Kinase C-Reactive Protein NT-Pro-B Natriuret Pep Total Protein Albumin Globulin Amylase 238 H Lipase 257 H Procalcitonin Acetaminophen < 5.0 L IgG 715 IgA 280 IgM 77 RADHA-1 Antibody SS-A Antibody SS-B Antibody Sm (Abrams) Antibody UI DEVELOPER DESIGNER Antibody Scl-70 Antibody Centromere B Antibody Thyroid Peroxidase Ab Complement C3c Complement C4c CH50 [facility] Pathway CMV IgG Ab <0.60 CMV IgM Ab <30.00 EBV IgG Ab >750.00 H EBV IgM Ab <36.00 EBV Capsid Ag IgG, IgM EBV Nuclear Antigen 51.60 H EBV Interpretation See note Hepatitis A IgM Ab Hep Bs Antigen Hep B Core IgM Ab Hepatitis C Antibody 08/17/20 08/17/20 08/17/20 12:05 12:05 16:38 WBC RBC Hgb Hct MCV MCH MCHC RDW Plt Count MPV Neut % (Auto) Lymph % (Auto) Power % (Auto) Eos % (Auto) Baso % (Auto) Neut # (Auto) Lymph # (Auto) Power # (Auto) Eos # (Auto) Baso # (Auto) Nucleated RBC % (auto) Nucleated RBCs # PT INR Sodium Potassium Chloride Carbon Dioxide Anion Gap BUN Creatinine GFR Calculation Glucose POC Glucose 119 H Calculated Osmolality Lactate Uric Acid Calcium Phosphorus Magnesium Total Bilirubin AST ALT Alkaline Phosphatase Ammonia Creatine Kinase C-Reactive Protein NT-Pro-B Natriuret Pep Total Protein Albumin Globulin Amylase Lipase Procalcitonin Acetaminophen IgG IgA IgM RADHA-1 Antibody <1.0 neg SS-A Antibody <1.0 neg SS-B Antibody <1.0 neg Sm (Abrams) Antibody <1.0 neg UI DEVELOPER DESIGNER Antibody <1.0 neg Scl-70 Antibody <1.0 neg Centromere B Antibody <1.0 neg Thyroid Peroxidase Ab <1 Complement C3c 198 H Complement C4c 55 H CH50 Classical Pathway >60 H CMV IgG Ab CMV IgM Ab EBV IgG Ab EBV IgM Ab EBV Capsid Ag IgG, IgM Cancelled EBV Nuclear Antigen EBV Interpretation Hepatitis A IgM Ab Hep Bs Antigen Hep B Core IgM Ab Hepatitis C Antibody 08/17/20 08/18/20 08/18/20 21:31 05:12 05:12 WBC 17.8 H RBC 3.60 L Hgb 9.9 L Hct 30.9 L MCV 85.8 MCH 27.5 L MCHC 32.0 RDW 14.8 Plt Count 504 H MPV 10.1 Neut % (Auto) 82.5 Lymph % (Auto) 6.0 Power % (Auto) 6.0 Eos % (Auto) 0.1 Baso % (Auto) 0.2 Neut # (Auto) 14.68 H Lymph # (Auto) 1.1 Power # (Auto) 1.1 H Eos # (Auto) 0.0 Baso # (Auto) 0.0 Nucleated RBC % (auto) 0.1 Nucleated RBCs # 0.0 PT INR Sodium Potassium Chloride Carbon Dioxide Anion Gap BUN Creatinine GFR Calculation Glucose POC Glucose 130 H Calculated Osmolality Lactate Uric Acid Calcium Phosphorus Magnesium Total Bilirubin AST ALT Alkaline Phosphatase Ammonia 26 Creatine Kinase C-Reactive Protein NT-Pro-B Natriuret Pep Total Protein Albumin Globulin Amylase Lipase Procalcitonin Acetaminophen IgG IgA IgM RADHA-1 Antibody SS-A Antibody SS-B Antibody Sm (Abrams) Antibody UI DEVELOPER DESIGNER Antibody Scl-70 Antibody Centromere B Antibody Thyroid Peroxidase Ab Complement C3c Complement C4c CH50 Classical Pathway CMV IgG Ab CMV IgM Ab EBV IgG Ab EBV IgM Ab EBV Capsid Ag IgG, IgM EBV Nuclear Antigen EBV Interpretation Hepatitis A IgM Ab Hep Bs Antigen Hep B Core IgM Ab Hepatitis C Antibody 08/18/20 08/18/20 08/18/20 05:12 05:12 05:12 WBC RBC Hgb Hct MCV MCH MCHC RDW Plt Count MPV Neut % (Auto) Lymph % (Auto) Power % (Auto) Eos % (Auto) Baso % (Auto) Neut # (Auto) Lymph # (Auto) Power # (Auto) Eos # (Auto) Baso # (Auto) Nucleated RBC % (auto) Nucleated RBCs # PT 15.60 H INR 1.20 Sodium 134 L Potassium 5.6 H Chloride 92 L Carbon Dioxide 23 Anion Gap 24.6 H BUN 97 H* Creatinine 5.3 H GFR Calculation 10.9 L Glucose 113 POC Glucose Calculated Osmolality 309 H Lactate 2.0 Uric Acid Calcium 8.0 L Phosphorus 9.6 H* Magnesium 2.7 H Total Bilirubin 0.7 AST 678 H ALT 1176 H Alkaline Phosphatase 176 H Ammonia Creatine Kinase C-Reactive Protein 36.5 H NT-Pro-B Natriuret Pep Total Protein 5.8 L Albumin 2.5 L Globulin 3.3 Amylase Lipase Procalcitonin Acetaminophen IgG IgA IgM RADHA-1 Antibody SS-A Antibody SS-B Antibody Sm (Abrams) Antibody UI DEVELOPER DESIGNER Antibody Scl-70 Antibody Centromere B Antibody Thyroid Peroxidase Ab Complement C3c Complement C4c CH50 [facility] Pathway CMV IgG Ab CMV IgM Ab EBV IgG Ab EBV IgM Ab EBV Capsid Ag IgG, IgM EBV Nuclear Antigen EBV Interpretation Hepatitis A IgM Ab Hep Bs Antigen Hep B Core IgM Ab Hepatitis C Antibody 08/18/20 08/18/20 08/18/20 05:12 06:51 10:52 WBC RBC Hgb Hct MCV MCH MCHC RDW Plt Count MPV Neut % (Auto) Lymph % (Auto) Power % (Auto) Eos % (Auto) Baso % (Auto) Neut # (Auto) Lymph # (Auto) Power # (Auto) Eos # (Auto) Baso # (Auto) Nucleated RBC % (auto) Nucleated RBCs # PT INR Sodium Potassium Chloride Carbon Dioxide Anion Gap BUN Creatinine GFR Calculation Glucose POC Glucose 127 H 121 H Calculated Osmolality Lactate Uric Acid 9.2 H Calcium Phosphorus Magnesium Total Bilirubin AST ALT Alkaline Phosphatase Ammonia Creatine Kinase 484 H* C-Reactive Protein NT-Pro-B Natriuret Pep 424 H Total Protein Albumin Globulin Amylase Lipase Procalcitonin 1.34 H Acetaminophen IgG IgA IgM RADHA-1 Antibody SS-A Antibody SS-B Antibody Sm (Abrams) Antibody UI DEVELOPER DESIGNER Antibody Scl-70 Antibody Centromere B Antibody Thyroid Peroxidase Ab Complement C3c Complement C4c CH50 Classical Pathway CMV IgG Ab CMV IgM Ab EBV IgG Ab EBV IgM Ab EBV Capsid Ag IgG, IgM EBV Nuclear Antigen EBV Interpretation Hepatitis A IgM Ab Hep Bs Antigen Hep B Core IgM Ab Hepatitis C Antibody 08/18/20 08/18/20 08/19/20 17:09 21:13 06:05 WBC 20.2 H RBC 3.72 L Hgb 10.4 L Hct 32.9 L MCV 88.4 MCH 28.0 MCHC 31.6 RDW 15.2 H Plt Count 507 H MPV 10.6 H Neut % (Auto) 81.8 Lymph % (Auto) 7.0 Power % (Auto) 7.3 Eos % (Auto) 0.3 Baso % (Auto) 0.1 Neut # (Auto) 16.49 H Lymph # (Auto) 1.4 Power # (Auto) 1.5 H Eos # (Auto) 0.1 Baso # (Auto) 0.0 Nucleated RBC % (auto) 0 Nucleated RBCs # 0.0 PT INR Sodium Potassium Chloride Carbon Dioxide Anion Gap BUN Creatinine GFR Calculation Glucose POC Glucose 109 132 H Calculated Osmolality Lactate Uric Acid Calcium Phosphorus Magnesium Total Bilirubin AST ALT Alkaline Phosphatase Ammonia Creatine Kinase C-Reactive Protein NT-Pro-B Natriuret Pep Total Protein Albumin Globulin Amylase Lipase Procalcitonin Acetaminophen IgG IgA IgM RADHA-1 Antibody SS-A Antibody SS-B Antibody Sm (Abrams) Antibody UI DEVELOPER DESIGNER Antibody Scl-70 Antibody Centromere B Antibody Thyroid Peroxidase Ab Complement C3c Complement C4c CH50 Classical Pathway CMV IgG Ab CMV IgM Ab EBV IgG Ab EBV IgM Ab EBV Capsid Ag IgG, IgM EBV Nuclear Antigen EBV Interpretation Hepatitis A IgM Ab Hep Bs Antigen Hep B Core IgM Ab Hepatitis C Antibody 08/19/20 08/19/20 08/19/20 06:05 06:05 06:05 WBC RBC Hgb Hct MCV MCH MCHC RDW Plt Count MPV Neut % (Auto) Lymph % (Auto) Power % (Auto) Eos % (Auto) Baso % (Auto) Neut # (Auto) Lymph # (Auto) Power # (Auto) Eos # (Auto) Baso # (Auto) Nucleated RBC % (auto) Nucleated RBCs # PT 15.30 H INR 1.17 Sodium 135 L Potassium 4.5 Chloride 94 L Carbon Dioxide 25 Anion Gap 20.5 H BUN 63 H Creatinine 4.0 H GFR Calculation 15.1 L Glucose 133 H POC Glucose Calculated Osmolality 300 H Lactate 1.5 Uric Acid Calcium 8.2 L Phosphorus 7.8 H* Magnesium 2.5 H Total Bilirubin 0.8 AST 584 H ALT 1092 H Alkaline Phosphatase 175 H Ammonia Creatine Kinase C-Reactive Protein 24.8 H NT-Pro-B Natriuret Pep Total Protein 5.7 L Albumin 2.5 L Globulin 3.2 Amylase Lipase Procalcitonin Acetaminophen IgG IgA IgM RADHA-1 Antibody SS-A Antibody SS-B Antibody Sm (Abrams) Antibody UI DEVELOPER DESIGNER Antibody Scl-70 Antibody Centromere B Antibody Thyroid Peroxidase Ab Complement C3c Complement C4c CH50 Classical Pathway CMV IgG Ab CMV IgM Ab EBV IgG Ab EBV IgM Ab EBV Capsid Ag IgG, IgM EBV Nuclear Antigen EBV Interpretation Hepatitis A IgM Ab Hep Bs Antigen Hep B Core IgM Ab Hepatitis C Antibody 08/19/20 08/19/20 06:05 06:53 WBC RBC Hgb Hct MCV MCH MCHC RDW Plt Count MPV Neut % (Auto) Lymph % (Auto) Power % (Auto) Eos % (Auto) Baso % (Auto) Neut # (Auto) Lymph # (Auto) Power # (Auto) Eos # (Auto) Baso # (Auto) Nucleated RBC % (auto) Nucleated RBCs # PT INR Sodium Potassium Chloride Carbon Dioxide Anion Gap BUN Creatinine GFR Calculation Glucose POC Glucose 108 Calculated Osmolality Lactate Uric Acid 7.2 H Calcium Phosphorus Magnesium Total Bilirubin AST ALT Alkaline Phosphatase Ammonia Creatine Kinase 412 H* C-Reactive Protein NT-Pro-B Natriuret Pep 287 H Total Protein Albumin Globulin Amylase Lipase Procalcitonin 1.03 H Acetaminophen IgG IgA IgM RADHA-1 Antibody SS-A Antibody SS-B Antibody Sm (Abrams) Antibody UI DEVELOPER DESIGNER Antibody Scl-70 Antibody Centromere B Antibody Thyroid Peroxidase Ab Complement C3c Complement C4c CH50 Classical Pathway CMV IgG Ab CMV IgM Ab EBV IgG Ab EBV IgM Ab EBV Capsid Ag IgG, IgM EBV Nuclear Antigen EBV Interpretation Hepatitis A IgM Ab Hep Bs Antigen Hep B Core IgM Ab Hepatitis C Antibody Cardiac Studies: Echocardiogram 08/05/20
[2020-08-19] MEDS: sodium chloride 0.9% 1,000 ML 30 ML IV (09:02)
[2020-08-19] MEDS: clindamycin 900 MG/50 ML PREMIX 100 MG IV (09:20)
--- NOTE | 2020-08-19 09:39 | PC.SOCIAL ---
IMM Updated Updated pt on Pg 2 IMM. Provided pt a copy. No questions voiced. Signed, dated, & timed copy in chart.
[2020-08-19] MEDS: heparin, porcine 1,000 unit/mL INJ 10 mL 10000 UNIT HE (09:50)
--- NOTE | 2020-08-19 09:51 | ANES.PREANE2 ---
Pre-Anesthetic Assessment Pre-Anesthetic Assessment: Height/Weight: Height 1.73 m Weight 181.437 kg Temp Pulse Resp BP Pulse Ox 97.7 F 97 20 H 137/80 94 08/19/20 08:50 08/19/20 08:50 08/19/20 08:50 08/19/20 08:50 08/19/20 08:50 Preop Diagnosis: Acute kidney injury/renal failure. Proposed Procedure: Operation Date: 08/14/20 08:20 Proposed Procedures p Dialysis Catheter Insertion(Not Applicable) - Eddie Chino MD Operation Date: 08/19/20 09:00 Proposed Procedures p Dialysis Catheter Insertion(Not Applicable) - Eddie Chino MD Was Beta Dayo taken within 24 hours: N/A Last intake: Intake Last Liquid Date 08/14/20 Last Liquid Time 00:00 Last Solid Date 08/14/20 Last Solid Time 00:00 Social: Social History: No alcohol and No tobacco Exam: Pre-Anes Outpt Exam: alert, oriented x 3, clear to auscultation bilaterally and regular rate & rhythm Airway: Submandibular: WNL Cervical ROM: WNL MP: 3 Dentition: Full Pulmonary: Pulmonary: CORONEL CV/HEM: CV/HEM: HTN : : Chronic renal failure Hepatic: Hepatic: None reported Metabolic: Metabolic: Morbid obesity Musc/skel: Musc/skel: Lower Back Pain Comments: leg pain Neuropsych: Neuropsych: None reported Anesthetic Plan: ASA status: 4 Anesthesia: General Risk of > 500 ml blood loss (7ml/kg in children): No Meds/Allergies Current Medications: Current Medications Generic Name Dose Route Start Last Admin Trade Name Freq PRN Reason Stop Dose Admin Hydrocodone Bitart /Acetaminophen 1 - 2 tab 08/17/20 17:04 08/18/20 18:05 Hydrocodone-Acet aminophen 5-325 Mg Tablet PO 2 tab Q6H PRN Administration MODERATE TO SEVER E PAIN Bupivacaine HCl 30 ml 08/19/20 09:47 08/19/20 09:49 Bupivacaine 0.5% Inj 30 Ml INJECTION 08/19/20 09:48 10 ml ONCE ONE Administration Ciprofloxacin HCl 250 mg 08/17/20 11:00 08/18/20 08:21 Ciprofloxacin 50 0 Mg Tablet PO 250 mg DAILY INA Administration Protocol Heparin Sodium (Be ef Lung) 5,000 unit 08/12/20 17:00 08/19/20 05:30 Heparin 5,000 Un it/Ml Inj 1 Ml SUBCUT 5,000 unit Q12H INA Administration Heparin Sodium (Po rcine) 10,000 unit 08/19/20 09:48 08/19/20 09:50 Heparin, Porcine 1,000 Unit/Ml Inj 10 Ml HE 08/19/20 09:49 7,000 unit ONCE ONE Administration Linezolid 600 mg in 300 mls @ 300 mls/hr 08/11/20 11:00 08/19/20 05:30 Zyvox Premix IV 300 mls/hr Q12H INA Administration Protocol Albumin Human 12.5 gm in 50 mls @ 60 mls/hr 08/15/20 07:17 08/15/20 18:09 Albumin IV Infused PRN PRN Infusion Hypotension and/o r symptomatic Sodium Chloride 1,000 mls @ 30 ml s/hr 08/19/20 09:30 08/19/20 09:02 Sodium Chloride 0.9% IV 08/20/20 09:29 30 mls/hr .Q24H INA Administration Insulin Aspart 0 unit 08/14/20 12:00 08/19/20 08:09 Insulin Aspart 1 00 Unit/1 Ml SUBCUT Not Given TIDWM INA Protocol Lidocaine/Epinephr ine 20 ml 08/19/20 09:47 08/19/20 09:49 Lidocaine 2% Epi 20 Ml Inj INJECTION 08/19/20 09:48 20 ml ONCE ONE Administration Pantoprazole Sodiu m 40 mg 08/16/20 09:00 08/18/20 08:[address] 40 Mg Tablet PO 40 mg DAILY INA Administration Sevelamer Carbonat e 2,400 mg 08/16/20 09:00 08/18/20 17:41 Sevelamer 800 Mg Tablet PO 2,400 mg TIDWM INA Administration PFSH Anesthesia PFSH: Medical History (Updated 08/17/20 @ 15:48 by Tremaine Ferrari MD) Arthritis Bilateral primary osteoarthritis of hip Diastolic CHF Gout HLD (hyperlipidemia) Hypertension Surgical History (Updated 08/04/20 @ 15:08 by Tremaine Ferrari MD) H/O vein stripping H/O ventral hernia repair Family History (Updated 08/04/20 @ 15:09 by Tremaine Ferrari MD) Father CAD (coronary artery disease) Mother Aspiration pneumonia Social History (Updated 07/28/20 @ 10:07 by Nicholas Jaimes LPN) Smoking and tobacco status: never smoked Alcohol intake: never Current occupational status: retired Data Anesthesia CBC & Chem 7: 08/19/20 06:05 08/19/20 06:05 Other Labs: Laboratory Results - last 48 hr 08/17/20 08/17/20 08/17/20 12:05 12:05 12:05 WBC RBC Hgb Hct MCV MCH MCHC RDW Plt Count MPV Neut % (Auto) Lymph % (Auto) Mccracken % (Auto) Eos % (Auto) Baso % (Auto) Neut # (Auto) Lymph # (Auto) Mccracken # (Auto) Eos # (Auto) Baso # (Auto) Nucleated RBC % (auto) Nucleated RBCs # PT INR Sodium Potassium Chloride Carbon Dioxide Anion Gap BUN Creatinine GFR Calculation Glucose POC Glucose Calculated Osmolality Lactate Uric Acid Calcium Phosphorus Magnesium Total Bilirubin AST ALT Alkaline Phosphatase Ammonia 27 Creatine Kinase C-Reactive Protein NT-Pro-B Natriuret Pep Total Protein Albumin Globulin Amylase 238 H Lipase 257 H Procalcitonin Acetaminophen < 5.0 L IgG 715 IgA 280 IgM 77 RADHA-1 Antibody SS-A Antibody SS-B Antibody Sm (Abrams) Antibody MOLECULAR BIOLOGY PROFESSOR Antibody Scl-70 Antibody Centromere B Antibody Thyroid Peroxidase Ab Complement C3c Complement C4c CH50 Classical Pathway CMV IgG Ab CMV IgM Ab EBV IgG Ab EBV IgM Ab EBV Capsid Ag IgG, IgM EBV Nuclear Antigen EBV Interpretation Hepatitis A IgM Ab Non-reactive Hep Bs Antigen Non-reactive Hep B Core IgM Ab Non-reactive Hepatitis C Antibody Non-reactive 08/17/20 08/17/20 08/17/20 12:05 12:05 12:05 WBC RBC Hgb Hct MCV MCH MCHC RDW Plt Count MPV Neut % (Auto) Lymph % (Auto) Mccracken % (Auto) Eos % (Auto) Baso % (Auto) Neut # (Auto) Lymph # (Auto) M[place]racken # (Auto) Eos # (Auto) Baso # (Auto) Nucleated RBC % (auto) Nucleated RBCs # PT INR Sodium Potassium Chloride Carbon Dioxide Anion Gap BUN Creatinine GFR Calculation Glucose POC Glucose Calculated Osmolality Lactate Uric Acid Calcium Phosphorus Magnesium Total Bilirubin AST ALT Alkaline Phosphatase Ammonia Creatine Kinase C-Reactive Protein NT-Pro-B Natriuret Pep Total Protein Albumin Globulin Amylase Lipase Procalcitonin Acetaminophen IgG IgA IgM RADHA-1 Antibody SS-A Antibody SS-B Antibody Sm (Abrams) Antibody MOLECULAR BIOLOGY PROFESSOR Antibody Scl-70 Antibody Centromere B Antibody Thyroid Peroxidase Ab Complement C3c Complement C4c CH50 Classical Pathway CMV IgG Ab <0.60 CMV IgM Ab <30.00 EBV IgG Ab >750.00 H EBV IgM Ab <36.00 EBV Capsid Ag IgG, IgM Cancelled EBV Nuclear Antigen 51.60 H EBV Interpretation See note Hepatitis A IgM Ab Hep Bs Antigen Hep B Core IgM Ab Hepatitis C Antibody 08/17/20 08/17/20 08/17/20 12:05 16:38 21:31 WBC RBC Hgb Hct MCV MCH MCHC RDW Plt Count MPV Neut % (Auto) Lymph % (Auto) Mccracken % (Auto) Eos % (Auto) Baso % (Auto) Neut # (Auto) Lymph # (Auto) M[place]racken # (Auto) Eos # (Auto) Baso # (Auto) Nucleated RBC % (auto) Nucleated RBCs # PT INR Sodium Potassium Chloride Carbon Dioxide Anion Gap BUN Creatinine GFR Calculation Glucose POC Glucose 119 H 130 H Calculated Osmolality Lactate Uric Acid Calcium Phosphorus Magnesium Total Bilirubin AST ALT Alkaline Phosphatase Ammonia Creatine Kinase C-Reactive Protein NT-Pro-B Natriuret Pep Total Protein Albumin Globulin Amylase Lipase Procalcitonin Acetaminophen IgG IgA IgM RADHA-1 Antibody <1.0 neg SS-A Antibody <1.0 neg SS-B Antibody <1.0 neg Sm (Abrams) Antibody <1.0 neg MOLECULAR BIOLOGY PROFESSOR Antibody <1.0 neg Scl-70 Antibody <1.0 neg Centromere B Antibody <1.0 neg Thyroid Peroxidase Ab <1 Complement C3c 198 H Complement C4c 55 H CH50 Classical Pathway >60 H CMV IgG Ab CMV IgM Ab EBV IgG Ab EBV IgM Ab EBV Capsid Ag IgG, IgM EBV Nuclear Antigen EBV Interpretation Hepatitis A IgM Ab Hep Bs Antigen Hep B Core IgM Ab Hepatitis C Antibody 08/18/20 08/18/20 08/18/20 05:12 05:12 05:12 WBC 17.8 H RBC 3.60 L Hgb 9.9 L Hct 30.9 L MCV 85.8 MCH 27.5 L MCHC 32.0 RDW 14.8 Plt Count 504 H MPV 10.1 Neut % (Auto) 82.5 Lymph % (Auto) 6.0 Mccracken % (Auto) 6.0 Eos % (Auto) 0.1 Baso % (Auto) 0.2 Neut # (Auto) 14.68 H Lymph # (Auto) 1.1 Mccracken # (Auto) 1.1 H Eos # (Auto) 0.0 Baso # (Auto) 0.0 Nucleated RBC % (auto) 0.1 Nucleated RBCs # 0.0 PT INR Sodium 134 L Potassium 5.6 H Chloride 92 L Carbon Dioxide 23 Anion Gap 24.6 H BUN 97 H* Creatinine 5.3 H GFR Calculation 10.9 L Glucose 113 POC Glucose Calculated Osmolality 309 H Lactate Uric Acid Calcium 8.0 L Phosphorus 9.6 H* Magnesium 2.7 H Total Bilirubin 0.7 AST 678 H ALT 1176 H Alkaline Phosphatase 176 H Ammonia 26 Creatine Kinase C-Reactive Protein 36.5 H NT-Pro-B Natriuret Pep Total Protein 5.8 L Albumin 2.5 L Globulin 3.3 Amylase Lipase Procalcitonin Acetaminophen IgG IgA IgM RADHA-1 Antibody SS-A Antibody SS-B Antibody Sm (Abrams) Antibody MOLECULAR BIOLOGY PROFESSOR Antibody Scl-70 Antibody Centromere B Antibody Thyroid Peroxidase Ab Complement C3c Complement C4c CH50 Classical Pathway CMV IgG Ab CMV IgM Ab EBV IgG Ab EBV IgM Ab EBV Capsid Ag IgG, IgM EBV Nuclear Antigen EBV Interpretation Hepatitis A IgM Ab Hep Bs Antigen Hep B Core IgM Ab Hepatitis C Antibody 08/18/20 08/18/20 08/18/20 05:12 05:12 05:12 WBC RBC Hgb Hct MCV MCH MCHC RDW Plt Count MPV Neut % (Auto) Lymph % (Auto) Mccracken % (Auto) Eos % (Auto) Baso % (Auto) Neut # (Auto) Lymph # (Auto) Mccracken # (Auto) Eos # (Auto) Baso # (Auto) Nucleated RBC % (auto) Nucleated RBCs # PT 15.60 H INR 1.20 Sodium Potassium Chloride Carbon Dioxide Anion Gap BUN Creatinine GFR Calculation Glucose POC Glucose Calculated Osmolality Lactate 2.0 Uric Acid 9.2 H Calcium Phosphorus Magnesium Total Bilirubin AST ALT Alkaline Phosphatase Ammonia Creatine Kinase 484 H* C-Reactive Protein NT-Pro-B Natriuret Pep 424 H Total Protein Albumin Globulin Amylase Lipase Procalcitonin 1.34 H Acetaminophen IgG IgA IgM RADHA-1 Antibody SS-A Antibody SS-B Antibody Sm (Abrams) Antibody MOLECULAR BIOLOGY PROFESSOR Antibody Scl-70 Antibody Centromere B Antibody Thyroid Peroxidase Ab Complement C3c Complement C4c CH50 Classical Pathway CMV IgG Ab CMV IgM Ab EBV IgG Ab EBV IgM Ab EBV Capsid Ag IgG, IgM EBV Nuclear Antigen EBV Interpretation Hepatitis A IgM Ab Hep Bs Antigen Hep B Core IgM Ab Hepatitis C Antibody 08/18/20 08/18/20 08/18/20 06:51 10:52 17:09 WBC RBC Hgb Hct MCV MCH MCHC RDW Plt Count MPV Neut % (Auto) Lymph % (Auto) Mccracken % (Auto) Eos % (Auto) Baso % (Auto) Neut # (Auto) Lymph # (Auto) Mccracken # (Auto) Eos # (Auto) Baso # (Auto) Nucleated RBC % (auto) Nucleated RBCs # PT INR Sodium Potassium Chloride Carbon Dioxide Anion Gap BUN Creatinine GFR Calculation Glucose POC Glucose 127 H 121 H 109 Calculated Osmolality Lactate Uric Acid Calcium Phosphorus Magnesium Total Bilirubin AST ALT Alkaline Phosphatase Ammonia Creatine Kinase C-Reactive Protein NT-Pro-B Natriuret Pep Total Protein Albumin Globulin Amylase Lipase Procalcitonin Acetaminophen IgG IgA IgM RADHA-1 Antibody SS-A Antibody SS-B Antibody Sm (Abrams) Antibody MOLECULAR BIOLOGY PROFESSOR Antibody Scl-70 Antibody Centromere B Antibody Thyroid Peroxidase Ab Complement C3c Complement C4c CH50 Classical Pathway CMV IgG Ab CMV IgM Ab EBV IgG Ab EBV IgM Ab EBV Capsid Ag IgG, IgM EBV Nuclear Antigen EBV Interpretation Hepatitis A IgM Ab Hep Bs Antigen Hep B Core IgM Ab Hepatitis C Antibody 08/18/20 08/19/20 08/19/20 21:13 06:05 06:05 WBC 20.2 H RBC 3.72 L Hgb 10.4 L Hct 32.9 L MCV 88.4 MCH 28.0 MCHC 31.6 RDW 15.2 H Plt Count 507 H MPV 10.6 H Neut % (Auto) 81.8 Lymph % (Auto) 7.0 Mccracken % (Auto) 7.3 Eos % (Auto) 0.3 Baso % (Auto) 0.1 Neut # (Auto) 16.49 H Lymph # (Auto) 1.4 Mccracken # (Auto) 1.5 H Eos # (Auto) 0.1 Baso # (Auto) 0.0 Nucleated RBC % (auto) 0 Nucleated RBCs # 0.0 PT INR Sodium 135 L Potassium 4.5 Chloride 94 L Carbon Dioxide 25 Anion Gap 20.5 H BUN 63 H Creatinine 4.0 H GFR Calculation 15.1 L Glucose 133 H POC Glucose 132 H Calculated Osmolality 300 H Lactate Uric Acid Calcium 8.2 L Phosphorus 7.8 H* Magnesium 2.5 H Total Bilirubin 0.8 AST 584 H ALT 1092 H Alkaline Phosphatase 175 H Ammonia Creatine Kinase C-Reactive Protein 24.8 H NT-Pro-B Natriuret Pep Total Protein 5.7 L Albumin 2.5 L Globulin 3.2 Amylase Lipase Procalcitonin Acetaminophen IgG IgA IgM RADHA-1 Antibody SS-A Antibody SS-B Antibody Sm (Abrams) Antibody MOLECULAR BIOLOGY PROFESSOR Antibody Scl-70 Antibody Centromere B Antibody Thyroid Peroxidase Ab Complement C3c Complement C4c CH50 Classical Pathway CMV IgG Ab CMV IgM Ab EBV IgG Ab EBV IgM Ab EBV Capsid Ag IgG, IgM EBV Nuclear Antigen EBV Interpretation Hepatitis A IgM Ab Hep Bs Antigen Hep B Core IgM Ab Hepatitis C Antibody 08/19/20 08/19/20 08/19/20 06:05 06:05 06:05 WBC RBC Hgb Hct MCV MCH MCHC RDW Plt Count MPV Neut % (Auto) Lymph % (Auto) Mccracken % (Auto) Eos % (Auto) Baso % (Auto) Neut # (Auto) Lymph # (Auto) Mccracken # (Auto) Eos # (Auto) Baso # (Auto) Nucleated RBC % (auto) Nucleated RBCs # PT 15.30 H INR 1.17 Sodium Potassium Chloride Carbon Dioxide Anion Gap BUN Creatinine GFR Calculation Glucose POC Glucose Calculated Osmolality Lactate 1.5 Uric Acid 7.2 H Calcium Phosphorus Magnesium Total Bilirubin AST ALT Alkaline Phosphatase Ammonia Creatine Kinase 412 H* C-Reactive Protein NT-Pro-B Natriuret Pep 287 H Total Protein Albumin Globulin Amylase Lipase Procalcitonin 1.03 H Acetaminophen IgG IgA IgM RADHA-1 Antibody SS-A Antibody SS-B Antibody Sm (Abrams) Antibody MOLECULAR BIOLOGY PROFESSOR Antibody Scl-70 Antibody Centromere B Antibody Thyroid Peroxidase Ab Complement C3c Complement C4c CH50 Classical Pathway CMV IgG Ab CMV IgM Ab EBV IgG Ab EBV IgM Ab EBV Capsid Ag IgG, IgM EBV Nuclear Antigen EBV Interpretation Hepatitis A IgM Ab Hep Bs Antigen Hep B Core IgM Ab Hepatitis C Antibody 08/19/20 06:53 WBC RBC Hgb Hct MCV MCH MCHC RDW Plt Count MPV Neut % (Auto) Lymph % (Auto) Mccracken % (Auto) Eos % (Auto) Baso % (Auto) Neut # (Auto) Lymph # (Auto) Mccracken # (Auto) Eos # (Auto) Baso # (Auto) Nucleated RBC % (auto) Nucleated RBCs # PT INR Sodium Potassium Chloride Carbon Dioxide Anion Gap BUN Creatinine GFR Calculation Glucose POC Glucose 108 Calculated Osmolality Lactate Uric Acid Calcium Phosphorus Magnesium Total Bilirubin AST ALT Alkaline Phosphatase Ammonia Creatine Kinase C-Reactive Protein NT-Pro-B Natriuret Pep Total Protein Albumin Globulin Amylase Lipase Procalcitonin Acetaminophen IgG IgA IgM RADHA-1 Antibody SS-A Antibody SS-B Antibody Sm (Abrams) Antibody MOLECULAR BIOLOGY PROFESSOR Antibody Scl-70 Antibody Centromere B Antibody Thyroid Peroxidase Ab Complement C3c Complement C4c CH50 Classical Pathway CMV IgG Ab CMV IgM Ab EBV IgG Ab EBV IgM Ab EBV Capsid Ag IgG, IgM EBV Nuclear Antigen EBV Interpretation Hepatitis A IgM Ab Hep Bs Antigen Hep B Core IgM Ab Hepatitis C Antibody Cardiac Studies: Echocardiogram 08/05/20
--- NOTE | 2020-08-19 10:02 | PM.OP ---
Operative Report Date of procedure: August 19, 2020 Pre-op Diagnosis: Acute kidney injury/renal failure. Post-op diagnosis: same Procedure Done: 1. Placement of 16 Fr. 31 cm HemoSplit long-term dialysis catheter into the right internal jugular vein using intraoperative ultrasound guidance and intraoperative fluoroscopy. 2. Removal of right femoral vein temporary dialysis catheter. Pathology: none sent Surgeon: Eddie Chino Anesthesia: General Estimated blood loss (mL): 5 Complications: None. Condition: stable Disposition: PACU Procedure: The patient was brought to the operating room and was placed in a supine position on the operating room table. General anesthesia was induced by means of a laryngeal mask airway. The right side of the neck and chest were prepped and draped in a sterile fashion. Intraoperative ultrasound was used to find the right internal jugular vein as evidenced by its size and compressibility. The vein appeared to be much more obvious than at the time of the previous attempt several days ago. 2% lidocaine with 1 100,000 parts epinephrine was used for local anesthetic on the neck and the right internal jugular vein was accessed with a needle and syringe under ultrasound guidance as evidenced by the return of dark nonpulsatile blood. The guidewire was easily passed down the needle and the needle was removed. The C-arm was positioned and showed the guidewire extending down the vena cava. A 16 Palestinian 31 cm HemoSplit long-term dialysis catheter was then placed on the right side of the chest and measured so that the subcutaneous cuff would be an appropriate location in the subcutaneous tunnel. The lidocaine was used to anesthetize a subcutaneous tract from the right chest wall to the right side of the neck over the top of the clavicle. A small incision was made on the chest wall at the proposed exit point and a small incision was also made adjacent to the guidewire on the right side of the neck. The HemoSplit catheter was then tunneled from the small incision on the chest to the small incision on the right side of the neck using the passer provided in the kit. Small to medium sized dilators were then placed over the guidewire to dilate the skin opening and the subcutaneous tissue. The introducer and sheath were then passed over the guidewire easily into the right internal jugular vein. The guidewire and introducer were removed and the arms of the HemoSplit dialysis catheter were easily passed down the sheath which was then torn away. The C-arm was once again positioned and showed good placement of the dialysis catheter tip in the vena cava. Both ports were aspirated and flushed with hep flush solution. Both ports showed excellent flow and were then left filled with concentrated hep flush solution. The catheter was sewn in place at the skin on the chest with some sutures of 3-0 Prolene. The small incision on the right side of the neck was closed using some interrupted inverted sutures of 4-0 Vicryl. The incision on the neck was covered with some Dermabond. A sterile dressing was placed over the HemoSplit exit site on the chest. Attention was then directed to the right femoral region where the patient had a temporary dialysis catheter in place. The sutures were removed and the dialysis catheter was removed from the right femoral vein intact. Pressure was held over the site and eventually a sterile pressure dressing was applied. The patient was taken back to the recovery area postoperatively in stable condition. INTRAOPERATIVE FLUOROSCOPY interpretation: FINDINGS: Intraoperative fluoroscopic images of a hemodialysis catheter placement were reviewed. An initial image reveals a guidewire entering the right internal jugular vein and extending down the vena cava. The patient appears to be laying slightly tilted to the left side. Subsequent images reveal a dialysis catheter on that side of the chest with its tubing tip in good location in the superior vena cava. No obvious pneumothorax is identified.
--- NOTE | 2020-08-19 10:23 | ANE.PACU2 ---
Inpatient post-anesthesia follow up: Airway intact: Yes Vital signs: Temperature 98 F Pulse Rate [Apical ] 98 Pulse Rate 91 Respiratory Rate 19 Blood Pressure [Ri ght Arm] 164/116 Blood Pressure 142/67 Pulse Oximetry 98 Oxygen Delivery Me thod [ Room Air Current Rate & Del alton] Oxygen Delivery Me thod Simple Mask Oxygen Flow Rate 8 Fraction of Inspir ed Oxygen 28 Hydration adequate: Yes Nausea and vomiting: No Pain level: 3 Additional Comments: sedated
[2020-08-19] MEDS: ciprofloxacin 500 mg Tablet 250 MG PO (11:26)
[2020-08-19] MEDS: pantoprazole DR 40 mg Tablet PO (11:27)
[2020-08-19] MEDS: sevelamer 800 mg Tablet 2400 MG PO ×2 (11:27→17:45)
--- NOTE | 2020-08-19 11:36 | PM.PN ---
Subjective Subjective: Interval history: Mr Rodarte Feels reasonably well today. He is in only a mild amount of pain. He has now just returned from having a dialysis catheter placed in his right IJ. He has mild lower extremity edema, he is breathing comfortably at rest at this time. Urine output is noted to be 550 mL Vitals/I&O/Wt Last Vital Signs Temp 97.9 F 08/19/20 10:46 Pulse 90 08/19/20 10:46 Resp 18 08/19/20 10:46 BP 132/72 08/19/20 10:46 Pulse Ox 97 08/19/20 10:46 08/18/20 08/19/20 08/19/20 22:59 06:59 14:59 Intake Total 540 / 780 50 / 50 Output Total 550 / 550 Balance 540 / 780 -500 / -500 Physical Exam Narrative: EXAM NARRATIVE: Constitutional: Awake, conversant HEENT: Wet mucosa, no jvp, non icteric Lungs: Bilaterally clear without discernible wheeze or rales in all lung zones CVS: S1 S2, no murmurs Abdo: Soft, BS ok Ext 4: 2+ edema, peripheral perfusion with no cyanosis Neurological: Grossly non-focal Urinary Catheter Management^: Flowers: Cath Placed During This Visit: yes, but has since been removed by the nurse Reason for Continuing Indwelling Catheter: Accurate Measurement of Urinary Output in Critically Ill Patients Urinary Catheter Date of Insertion: 08/05/20 Urinary Catheter Time of Insertion: 15:00 Date Urinary Catheter Removed: 08/09/20 Time Urinary Catheter Discontinued: 05:45 Data : 08/19/20 06:05 08/19/20 06:05 A&P Additional A&P Information 1. MAGGIE - likely infection mediated ATN/ Staph super infection PIGN - remains oliguric and creatinine increasing, some edema today - plan for some dialysis 2L today - am labs - am eval for dialysis 2. 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 Lytes - hyperphos, on binder therapy, effective dialysis will help to some degree - otherwise lytes look well balanced 4. Hemodynamics soft but maintaining Thank you for consultation, it is a pleasure to follow these cases with you Exam and interview performed with aid of bedside RN using telemedicine Time spent 20 min inc > 50% of time in face to face counseling Arash Langston MD [facility] [phone] Attestations Medical Necessity Statement*: eval for renal failure Coding Level of Care Code Acute Search Engine Marketing Specialist for Corrie Ordonez
[2020-08-19 11:40] LABS: Glucose Point of Care 119 mg/dL (70-110)
--- NOTE | 2020-08-19 13:15 | P.PN_ITS ---
Subjective Subjective: Interval history: This morning patient was examined after his placement of right tunneled dialysis catheter, tolerated procedure well, he has no complaints this morning, he is doing well, no chest pain, no shortness of breath, I had a discussion with patient about being motivated to work with physical therapy, he tells me that he will do more of an effort to ambulate Vitals/I&O/Wt Last Vital Signs Temp 97.6 F 08/19/20 11:43 Pulse 103 H 08/19/20 11:43 Resp 18 08/19/20 11:43 BP 123/75 08/19/20 11:43 Pulse Ox 95 08/19/20 11:43 08/18/20 08/19/20 08/19/20 22:59 06:59 14:59 Intake Total 540 / 780 50 / 50 Output Total 550 / 550 Balance 540 / 780 -500 / -500 Physical Exam Narrative: EXAM NARRATIVE: Morbidly obese male Large pannus Const: COMMON NORMALS: no acute distress and patient oriented x3 ORIENTATION/CONSCIOUSNESS: Yes awake, Yes oriented to person and Yes oriented to place; not oriented to time HENMT: COMMON NORMALS: normocephalic HEAD & SCALP: normocephalic Neck/C-Spine: COMMON NORMALS: no JVD Lymph: LYMPHATIC: no lymphadenopathy noted Chest: OTHER: Right chest, dialysis catheter in place Resp: COMMON NORMALS: normal respiratory effort, No retractions, No use of accessory muscles and clear to auscultation bilaterally AUSCULTATION: clear to auscultation bilaterally Cardio: COMMON NORMALS: no JVD, regular rate, regular rhythm, S1 normal heart sound present, S2 normal heart sound present, No gallops present (Cardio), No clicks present (Cardio) and No murmurs present (Cardio) RATE: regular rate RHYTHM: regular rhythm HEART SOUNDS: S1 normal heart sound present and S2 normal heart sound present GI: COMMON NORMALS: Normal to inspection, nondistended, normoactive bowel sounds present, Soft to palpation, non-tender, No hepatosplenomegaly present, no masses and no bruits PALPATION: Yes Soft to palpation and Yes No hepatosplenomegaly present Extremity: COMMON NORMALS: normal to inspection, full ROM, capillary refill normal, no clubbing, cyanosis or edema, no calf tenderness and no pedal edema NARRATIVE EXTREMITY EXAM: Diffuse anasarca Neuro: COMMON NORMALS: patient oriented x3, CN's II-XII intact bilaterally, moves all extremities and no focal motor deficits SENSORIUM/ORIENTATION: Yes oriented to person, Yes oriented to place and No oriented to time Psych: COMMON NORMALS: mental status grossly normal, Normal thought process present and cooperative THOUGHT PROCESS: Normal thought process present Urinary Catheter Management^: Flowers: Cath Placed During This Visit: yes, but has since been removed by the nurse Reason for Continuing Indwelling Catheter: Accurate Measurement of Urinary Output in Critically Ill Patients Urinary Catheter Date of Insertion: 08/05/20 Urinary Catheter Time of Insertion: 15:00 Date Urinary Catheter Removed: 08/09/20 Time Urinary Catheter Discontinued: 05:45 Data : 08/19/20 06:05 08/19/20 06:05 A&P Assessment and plan (1) Vertebral osteomyelitis: -With sepsis, improved -CT of abdomen pelvis shows:Lytic changes in the L3 and L4 vertebral bodies without adjacent inflammation. Indolent vertebral body osteomyelitis, metastatic disease or degenerative cystic changes in the vertebral bodies. -CT-of the cervical spine does not show any significant osteomyelitis -I went over CT scan findings with Dr. Cuellar, she feels that changes in vertebral bodies are likely related to osteomyelitis -Unfortunately patient cannot have a MRI given his body habitus -Unfortunately cannot perform a tagged white blood cell scan as he cannot fit in the machine -Unfortunate patient cannot have a CT-guided biopsy, due to his body habitus, difficulty accessing site -White blood cell count 17.8, ESR greater than 120, procalcitonin improving -This is certainly a mixed picture, sepsis findings, given transaminitis, acute renal failure -Blood pressure normotensive, afebrile, saturating in the high 90s on room air -Lactic acid within normal limits -Inflammatory markers improving -Persistent leukocytosis, neutrophilic likely secondary to prednisone Plan: -Continue neurochecks -Continue bariatric bed -Needs to get up out of bed into bariatric chair -Placed on broad-spectrum antibiotic therapy Zyvox and the descalated to Cipro -Follow blood cultures, so far negative -Monitor clinical progress -Prednisone has been stopped -DNR/DNI -Heparin for DVT prophylaxis -Patient was updated -Discussed with PT OT, to do physical therapy in bariatric chair Status: Acute (2) Acute renal failure: -Etiology multifactorial's rhabdomyolysis and/or sepsis and or drug reaction and/or dress syndrome -Has not received any NSAIDs, is on lisinopril hydrochlorthiazide which has been held -Was on Lasix therapy -He does have a allergy to cephalexin, allergy unknown, patient is unsure what the allergy is, could he possibly have dress syndrome, however does not have sig nificant eosinophilia on CBC -We will hold allopurinol as associate with dress syndrome,, Denis Diogo syndrome -CPK and uric acid are trending down -CT scan of the abdomen pelvis does not show any significant obstructive uropathy, or kidney stone, but it was a difficult study -Urine output 550 cc -Mild acidosis, hyponatremia, hyperkalemia, uremia, hypocalcemia, elevated phosphorus, elevated magnesium, anasarca Plan: -Right tunneled dialysis catheter in place -Nephrology on consult -Urine studies no eosinophils seen -Peripheral smear toxic granulations, no eosinophils -Trend CPK and uric acids, improving -Urine output remains minimal, but improving -Dialysis catheter placement placement to right femoral vein -On Renvela, sodium bicarb -Nephrology consult -Receiving Lasix for anasarca, will have dialysis today Status: Acute (3) RLL pneumonia: Initially on chest x-ray patient was noted to have right lower lobe pneumonia for which she received treatment with ceftriaxone and azithromycin. Currently on Zyvox and Zosyn CT chest negative for consolidative process, afebrile, on room air Status: Acute (4) Hypertension: -Hold Norvasc to 10 mg daily -Discontinue lisinopril given creatinine increase This is currently well controlled Status: Inactive (5) Diastolic CHF: -Cardiac echocardiogram shows EF of 55%, no regional wall motion abnormalities, poor quality study -d/c lasix , monitor urine output closely, Flowers catheter Status: Acute (6) Gout: Continue allopurinol Status: Acute (7) Bilateral lower extremity edema: Minimal today Status: Acute (8) Morbid obesity with BMI of 60.0-69.9, adult: Needs to follow-up with bariatric clinic, needs to be motivated to lose weight Status: Acute (9) Difficulty in walking: PT OT, however states unable to participate due to weakness Status: Acute (10) Bilateral primary osteoarthritis of hip: PT OT, pain control Status: Acute (11) HLD (hyperlipidemia): Continue simvastatin Status: Acute (12) Unable to ambulate: PT OT Status: Acute (13) Intractable pain: -Has some calf pain bilaterally, lower extremity Doppler negative for DVT Status: Acute (14) Sepsis: Status: Acute (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 -From allopurinol versus ceftriaxone -With transaminitis, acute renal failure, multiorgan dysfunction, I cannot see a rash -Prednisone has been stopped Status: Acute (16) Encephalopathy: -Much more alert, awake, oriented x3, at bedside, following all commands, cranial nerves II to XII grossly intact -ABG did not show any significant hypoxia or hypercarbia -Continue BiPAP overnight -The question is does he have meningitis in addition to vertebral osteomyelitis as the below, does not have any neck pain, no neck stiffness, no fevers, no nausea, vomiting, blurry vision, but will monitor closely -Neurochecks -Patient does have significant uremia, resolved -Septic encephalopathy, resolved Status: Acute (17) Rhabdomyolysis: -Etiology of rhabdomyolysis is uncertain, patient has been immobile, in bed, been laying on his back, area vertebral osteomyelitis as a possible etiology -Certainly compartment syndrome could be an etiology, but unlikely - CT of his pelvis did show severe left hip osteoarthritis, no significant evidence of compartment syndrome Status: Acute (18) Hyperuricemia: Status: Acute (19) Transaminitis: Worsening today Plan: -GGT, LDH, LFTs -We will continue to monitor closely Status: Acute (20) Ischemic hepatitis: -LFTs have stabilized -AST 584 -ALT 1092 -Alk phos 176 -Ammonia 26 -INR 1.20 -GGT 330 -Total bili 0.8 -Acute hepatitis panel negative, HIV panel negative -Tylenol level negative -LOUIE, CMV, VZV, EBV pending, drug screen pending -CT scan of the abdomen pelvis with contrast liver unremarkable, gallbladder unremarkable, pancreas unremarkable, no biliary ductal dilatation -Right upper quadrant ultrasound shows hepatomegaly with diffuse fatty infiltration -Patient does have hypotensive episodes during dialysis, -Ischemic hepatitis likely secondary to sepsis, and hypotensive episodes during dialysis Plan: -Goal is to minimize hypotension -Minimize low blood pressures during dialysis -I have stopped all blood pressure medications -Continue to trend LFTs Status: Acute Additional A&P Information Dvt ppx: Heparin Patient is a DNR/DNI Dispo: Likely requires detention facility placement Attestations Medical Necessity Statement*: She requires hospitalization vertebral osteomyelitis, acute renal failure, requires shelter placement Coding Level of Care Code 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
[2020-08-19 17:09] LABS: Glucose Point of Care 106 mg/dL (70-110)
[2020-08-19 21:28] LABS: Glucose Point of Care 117 mg/dL (70-110)
[2020-08-20] VITALS (10 sets, daily range): BP systolic 111–144; BP diastolic 66–81; PULSE 92–99; RESP 17–18; TEMP 36.7–37.7; O2SAT 94–96
[2020-08-20 04:56] LABS: Basophils % 0.2 %; Eosinophils # 0.1 10^3/uL (0.0-0.8); Eosinophils % 0.6 %; Hematocrit 33.3 % (42.0-52.0); Hemoglobin 10.6 g/dL (11.7-16.6); Lymphocytes # 1.2 10^3/uL (0.8-4.8); Lymphocytes % 7.2 %; Mean Corpuscular HGB Conc 31.8 g/dL (30.0-36.0); Mean Corpuscular Hemoglobin 28.3 pg (28.0-34.0); Mean Corpuscular Volume 88.8 fL (80-94); Mean Platelet Volume 10.7 fL (7.4-10.4); Monocytes # 1.3 10^3/uL (0.2-0.9); Monocytes % 7.7 %; Neutrophils # 13.25 10^3/uL (1.8-7.7); Neutrophils % 80.9 %; Nucleated Red Blood Cells % 0 %; Platelet Count 444 10^3/cmm (130-400); Red Blood Count 3.75 10^6/uL (4.1-5.3); Red Cell Distribution Width 15.5 % (12.1-15.1); White Blood Count 16.4 10^3/uL (4.0-10.0)
[2020-08-20] MEDS: heparin 5,000 unit/mL INJ 1 mL 5000 UNIT SUBCUT ×2 (04:59→17:43)
[2020-08-20] MEDS: linezolid premix 600 MG/300 ML PREMIX 300 MG IV ×2 (05:01→17:47)
[2020-08-20 05:11] LABS: Lactate (Lactic Acid level) 1.6 mmol/L (0.5-2.2)
[2020-08-20 05:18] LABS: INR 1.14 (0.8-1.2)
[2020-08-20 05:31] LABS: Albumin Level 2.9 g/dL (3.5-5.2); Alkaline Phosphatase 167 IU/L (40-130); Anion Gap 18.6 (5-19); Aspartate Amino Transferase 420 U/L (0-40); Blood Urea Nitrogen 50 mg/dL (8-23); C Reactive Protein 46.7 mg/L (0.0-4.9); Calcium 8.5 mg/dL (8.5-10.5); Carbon Dioxide 26 mmol/L (22-29); Chloride 93 mmol/L (98-107); Globulin 2.9 g/dL (1.3-4.6); Glucose 106 mg/dL (65-115); Magnesium 2.2 mg/dL (1.7-2.3); Osmolality Calculated 290 mOsm/kg (285-295); Phosphorus 6.8 mg/dL (2.5-4.5); Potassium 4.6 mmol/L (3.5-5.1); Sodium 133 mmol/L (136-145); Total Bilirubin 1.1 mg/dL (0.15-1.2); Total Protein 5.8 g/dL (6.6-8.7)
[2020-08-20 05:36] LABS: NT Pro B Type Natriuretic Pept 223 pg/mL (0-125)
[2020-08-20 05:47] LABS: Alanine Aminotransferase 900 U/L (0-41)
[2020-08-20 06:49] LABS: Glucose Point of Care 131 mg/dL (70-110)
[2020-08-20 07:27] LABS: NT Pro B Type Natriuretic Pept 215 pg/mL (0-125); Procalcitonin 1.41 ng/mL (0-0.5)
[2020-08-20 07:40] LABS: Uric Acid 6.5 mg/dL (3.4-7.0)
[2020-08-20 07:43] LABS: Creatine Phosphokinase 487 U/L (39-308)
[2020-08-20 07:58] LABS: Amphetamine negative; Barbiturates negative; Benzodiazepines negative; Cocaine Metabolites negative; Marijuana(Tetrahydrocannabino) negative; Opiates negative; PCP (Phencyclidine) negative
[2020-08-20] MEDS: sevelamer 800 mg Tablet 2400 MG PO ×3 (09:51→17:46)
[2020-08-20 11:13] LABS: Glucose Point of Care 107 mg/dL (70-110)
--- NOTE | 2020-08-20 11:57 | PM.PN ---
Subjective Subjective: Interval history: No acute events overnight. He did tolerate dialysis well yesterday. He continues to have lower extremity edema, however no other symptoms of hypervolemia and he is breathing comfortably at rest without the need for oxygen. No fevers or chills, no chest pain, palpitations etc. Making minimal amounts of urine. Medications: Reviewed: Yes Medication Review Details: Current Medications Hydrocodone Bitart/Acetaminophen (Hydrocodone-Acetaminophen 5-325 Mg Tablet) 1 - 2 tab PO Q6H PRN PRN Reason: MODERATE TO SEVERE PAIN Last Admin: 08/17/20 18:51 Dose: 1 tab Documented by: Bisacodyl (Bisacodyl 5 Mg Tablet) 10 mg PO DAILY PRN PRN Reason: CONSTIPATION Ciprofloxacin HCl (Ciprofloxacin 500 Mg Tablet) 250 mg PO DAILY INA; Protocol Last Admin: 08/17/20 10:58 Dose: 250 mg Documented by: Dextrose (Dextrose 50% Syringe 50 Ml) 25 ml IVP ONCE PRN; Protocol PRN Reason: hypoglycemia protocol Dextrose (Dextrose 50% Syringe 50 Ml) 50 ml IVP PRN PRN; Protocol PRN Reason: hypoglycemia protocol Dextrose (Dextrose 50% Syringe 50 Ml) 25 ml IVP ONCE PRN; Protocol PRN Reason: hypoglycemia protocol Dextrose (Dextrose 50% Syringe 50 Ml) 50 ml IVP PRN PRN; Protocol PRN Reason: hypoglycemia protocol Furosemide (Furosemide 10 Mg/Ml Sdv 10ml) 60 mg IVP Q12H INA Last Admin: 08/17/20 18:52 Dose: 60 mg Documented by: Glucagon (Glucagon 1 Mg/Ml Inj 1 Ml) 1 mg IM ONCE PRN; Protocol PRN Reason: Adult Acute Hypoglycemia Prot. Glucagon (Glucagon 1 Mg/Ml Inj 1 Ml) 1 mg IM ONCE PRN; Protocol PRN Reason: Adult Acute Hypoglycemia Prot. Heparin Sodium (Beef Lung) (Heparin 5,000 Unit/Ml Inj 1 Ml) 5,000 unit SUBCUT Q12H INA Last Admin: 08/18/20 05:36 Dose: 5,000 unit Documented by: Linezolid (Zyvox Premix) 600 mg in 300 mls @ 300 mls/hr IV Q12H INA; Protocol Last Admin: 08/18/20 05:36 Dose: 300 mls/hr Documented by: Dextrose (D5w) 500 mls @ 100 mls/hr IV ONCE PRN; Protocol PRN Reason: Adult Acute Hypoglycemia Prot Dextrose (D5w) 500 mls @ 100 mls/hr IV ONCE PRN; Protocol PRN Reason: Adult Acute Hypoglycemia Prot Albumin Human (Albumin) 12.5 gm in 50 mls @ 60 mls/hr IV PRN PRN PRN Reason: Hypotension and/or symptomatic Last Admin: 08/15/20 17:19 Dose: 60 mls/hr Documented by: Albumin Human (Albumin) 12.5 gm in 50 mls @ 60 mls/hr IV PRN PRN PRN Reason: Hypotension and/or symptomatic Insulin Aspart (Insulin Aspart 100 Unit/1 Ml) 0 unit SUBCUT TIDWM [facility]; Protocol Last Admin: 08/17/20 17:12 Dose: Not Given Documented by: Ondansetron HCl (Ondansetron 2 Mg/Ml Sdv 2 Ml) 4 mg IVP Q8H PRN PRN Reason: vomiting, or N/V if npo Pantoprazole Sodium (Pantoprazole Dr 40 Mg Tablet) 40 mg PO DAILY [facility] Last Admin: 08/17/20 10:58 Dose: 40 mg Documented by: Prednisone (Prednisone 20 Mg Tablet) 40 mg PO DAILY [facility] Last Admin: 08/17/20 10:58 Dose: 40 mg Documented by: Sevelamer Carbonate (Sevelamer 800 Mg Tablet) 2,400 mg PO TIDWM [facility] Last Admin: 08/17/20 17:12 Dose: 2,400 mg Documented by: Vitals/I&O/Wt Last Vital Signs Temp 98.1 F 08/20/20 11:36 Pulse 93 08/20/20 11:36 Resp 17 08/20/20 11:36 BP 116/70 08/20/20 11:36 Pulse Ox 95 08/20/20 11:36 08/19/20 08/20/20 08/20/20 22:59 06:59 14:59 Intake Total 300 / 350 300 / 650 Output Total 100 / 650 350 / 350 Balance 200 / -300 300 / 0 -350 / -350 Physical Exam Narrative: EXAM NARRATIVE: Constitutional: Awake, conversant HEENT: Wet mucosa, no jvp, non icteric Lungs: Bilaterally clear without discernible wheeze or rales in all lung zones CVS: S1 S2, no murmurs Abdo: Soft, BS ok Ext 4: 2+ edema, peripheral perfusion with no cyanosis Neurological: Grossly non-focal Urinary Catheter Management^: Flowers: Cath Placed During This Visit: yes, but has since been removed by the nurse Reason for Continuing Indwelling Catheter: Accurate Measurement of Urinary Output in Critically Ill Patients Urinary Catheter Date of Insertion: 08/05/20 Urinary Catheter Time of Insertion: 15:00 Date Urinary Catheter Removed: 08/09/20 Time Urinary Catheter Discontinued: 05:45 Data : 08/20/20 04:26 08/20/20 04:26 A&P Additional A&P Information 1. MAGGIE - likely infection mediated ATN/ Staph super infection PIGN - remains oliguric - plan for dialysis on Saturday - am labs - am eval for dialysis 2. 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 Lytes - hyperphos, on binder therapy, effective dialysis will help to some degree - otherwise lytes look well balanced 4. Hemodynamics soft but maintaining - DC planning - Following discharge his accepting team needs to continue to monitor him for renal recovery. I have enforced this with him today to pass that message along to the doctors who will be taking care of him. 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
--- NOTE | 2020-08-20 12:02 | P.PN_ITS ---
Subjective Subjective: Interval history: This morning patient was examined, he is doing well, has no complaints, no fevers, no chills, no cough, no shortness of breath, no abdominal pain, no joint pains, he is actually doing much better, actually smiling this morning asking how I am doing. I had extensive discussion with the patient, that we need to get him up and moving, do physical therapy, as that this will yield the best clinical outcome, he agrees, he will do his best Medications: Reviewed: Yes Medication Review Details: Current Medications Hydrocodone Bitart/Acetaminophen (Hydrocodone-Acetaminophen 5-325 Mg Tablet) 1 - 2 tab PO Q6H PRN PRN Reason: MODERATE TO SEVERE PAIN Last Admin: 08/17/20 18:51 Dose: 1 tab Documented by: Bisacodyl (Bisacodyl 5 Mg Tablet) 10 mg PO DAILY PRN PRN Reason: CONSTIPATION Ciprofloxacin HCl (Ciprofloxacin 500 Mg Tablet) 250 mg PO DAILY INA; Protocol Last Admin: 08/17/20 10:58 Dose: 250 mg Documented by: Dextrose (Dextrose 50% Syringe 50 Ml) 25 ml IVP ONCE PRN; Protocol PRN Reason: hypoglycemia protocol Dextrose (Dextrose 50% Syringe 50 Ml) 50 ml IVP PRN PRN; Protocol PRN Reason: hypoglycemia protocol Dextrose (Dextrose 50% Syringe 50 Ml) 25 ml IVP ONCE PRN; Protocol PRN Reason: hypoglycemia protocol Dextrose (Dextrose 50% Syringe 50 Ml) 50 ml IVP PRN PRN; Protocol PRN Reason: hypoglycemia protocol Furosemide (Furosemide 10 Mg/Ml Sdv 10ml) 60 mg IVP Q12H INA Last Admin: 08/17/20 18:52 Dose: 60 mg Documented by: Glucagon (Glucagon 1 Mg/Ml Inj 1 Ml) 1 mg IM ONCE PRN; Protocol PRN Reason: Adult Acute Hypoglycemia Prot. Glucagon (Glucagon 1 Mg/Ml Inj 1 Ml) 1 mg IM ONCE PRN; Protocol PRN Reason: Adult Acute Hypoglycemia Prot. Heparin Sodium (Beef Lung) (Heparin 5,000 Unit/Ml Inj 1 Ml) 5,000 unit SUBCUT Q12H INA Last Admin: 08/18/20 05:36 Dose: 5,000 unit Documented by: Linezolid (Zyvox Premix) 600 mg in 300 mls @ 300 mls/hr IV Q12H INA; Protocol Last Admin: 08/18/20 05:36 Dose: 300 mls/hr Documented by: Dextrose (D5w) 500 mls @ 100 mls/hr IV ONCE PRN; Protocol PRN Reason: Adult Acute Hypoglycemia Prot Dextrose (D5w) 500 mls @ 100 mls/hr IV ONCE PRN; Protocol PRN Reason: Adult Acute Hypoglycemia Prot Albumin Human (Albumin) 12.5 gm in 50 mls @ 60 mls/hr IV PRN PRN PRN Reason: Hypotension and/or symptomatic Last Admin: 08/15/20 17:19 Dose: 60 mls/hr Documented by: Albumin Human (Albumin) 12.5 gm in 50 mls @ 60 mls/hr IV PRN PRN PRN Reason: Hypotension and/or symptomatic Insulin Aspart (Insulin Aspart 100 Unit/1 Ml) 0 unit SUBCUT TIDWM [facility]; Protocol Last Admin: 08/17/20 17:12 Dose: Not Given Documented by: Ondansetron HCl (Ondansetron 2 Mg/Ml Sdv 2 Ml) 4 mg IVP Q8H PRN PRN Reason: vomiting, or N/V if npo Pantoprazole Sodium (Pantoprazole Dr 40 Mg Tablet) 40 mg PO DAILY [facility] Last Admin: 08/17/20 10:58 Dose: 40 mg Documented by: Prednisone (Prednisone 20 Mg Tablet) 40 mg PO DAILY [facility] Last Admin: 08/17/20 10:58 Dose: 40 mg Documented by: Sevelamer Carbonate (Sevelamer 800 Mg Tablet) 2,400 mg PO TIDWM [facility] Last Admin: 08/17/20 17:12 Dose: 2,400 mg Documented by: Vitals/I&O/Wt Last Vital Signs Temp 98.1 F 08/20/20 11:36 Pulse 93 08/20/20 11:36 Resp 17 08/20/20 11:36 BP 116/70 08/20/20 11:36 Pulse Ox 95 08/20/20 11:36 08/19/20 08/20/20 08/20/20 22:59 06:59 14:59 Intake Total 300 / 350 300 / 650 Output Total 100 / 650 350 / 350 Balance 200 / -300 300 / 0 -350 / -350 Physical Exam Narrative: EXAM NARRATIVE: Morbidly obese male Large pannus Const: COMMON NORMALS: no acute distress and patient oriented x3 OTHER: Morbidly obese gentleman A bit drowsy this morning HENMT: COMMON NORMALS: normocephalic HEAD & SCALP: normocephalic Neck/C-Spine: COMMON NORMALS: no JVD Chest: OTHER: Right chest, dialysis catheter in place Resp: COMMON NORMALS: normal respiratory effort, No retractions, No use of accessory muscles and clear to auscultation bilaterally AUSCULTATION: clear to auscultation bilaterally Cardio: COMMON NORMALS: no JVD, regular rate, regular rhythm, S1 normal heart sound present and S2 normal heart sound present RATE: regular rate RHYTHM: regular rhythm HEART SOUNDS: S1 normal heart sound present and S2 normal heart sound present GI: COMMON NORMALS: Normal to inspection, nondistended, normoactive bowel sounds present, Soft to palpation, non-tender, No hepatosplenomegaly present, no masses and no bruits PALPATION: Yes Soft to palpation and Yes No hepatosplenomegaly present Extremity: COMMON NORMALS: capillary refill normal, no clubbing, cyanosis or edema, no calf tenderness and no pedal edema Neuro: COMMON NORMALS: patient oriented x3 Psych: COMMON NORMALS: mental status grossly normal Urinary Catheter Management^: Flowers: Cath Placed During This Visit: yes, but has since been removed by the nurse Reason for Continuing Indwelling Catheter: Accurate Measurement of Urinary Output in Critically Ill Patients Urinary Catheter Date of Insertion: 08/05/20 Urinary Catheter Time of Insertion: 15:00 Date Urinary Catheter Removed: 08/09/20 Time Urinary Catheter Discontinued: 05:45 Data : 08/20/20 04:26 08/20/20 04:26 A&P Assessment and plan (1) Vertebral osteomyelitis: -With sepsis, improved -CT of abdomen pelvis shows:Lytic changes in the L3 and L4 vertebral bodies without adjacent inflammation. Indolent vertebral body osteomyelitis, metastatic disease or degenerative cystic changes in the vertebral bodies. -CT-of the cervical spine does not show any significant osteomyelitis -I went over CT scan findings with Dr. Cuellar, she feels that changes in vertebral bodies are likely related to osteomyelitis -Unfortunately patient cannot have a MRI given his body habitus -Unfortunately cannot perform a tagged white blood cell scan as he cannot fit in the machine -Unfortunate patient cannot have a CT-guided biopsy, due to his body habitus, difficulty accessing site -White blood cell count 16.4, ESR greater than 120, procalcitonin improving -This is certainly a mixed picture, sepsis findings, given transaminitis, acute renal failure -Blood pressure normotensive, afebrile, saturating in the high 90s on room air -Lactic acid within normal limits -Inflammatory markers improving -Persistent leukocytosis, neutrophilic likely secondary to prednisone Plan: -Continue neurochecks -Continue bariatric bed -Needs to get up out of bed into bariatric chair -Placed on broad-spectrum antibiotic therapy Zyvox and the descalated to Cipro -Follow blood cultures, so far negative -Monitor clinical progress -Prednisone has been stopped -DNR/DNI -Heparin for DVT prophylaxis -Patient was updated -Discussed with PT OT, to do physical therapy in bariatric chair Status: Acute (2) Acute renal failure: -Etiology multifactorial's rhabdomyolysis and/or sepsis and or drug reaction and/or dress syndrome -Has not received any NSAIDs, is on lisinopril hydrochlorthiazide which has been held -Was on Lasix therapy -He does have a allergy to cephalexin, allergy unknown, patient is unsure what the allergy is, could he possibly have dress syndrome, however does not have significant eosinophilia on CBC -We will hold allopurinol as associate with dress syndrome,, Denis Diogo syndrome -CPK and uric acid are trending down -CT scan of the abdomen pelvis does not show any significant obstructive uropathy, or kidney stone, but it was a difficult study -Urine output 450 cc -Mild acidosis, hyponatremia, hyperkalemia, uremia, hypocalcemia, elevated phosphorus, elevated magnesium, anasarca Plan: -Right tunneled dialysis catheter in place, placed by Dr. Chino yesterday -Nephrology on consult -Urine studies no eosinophils seen -Peripheral smear toxic granulations, no eosinophils -Trend CPK and uric acids, improving -Urine output remains minimal, but improving -Dialysis catheter placement placement to right femoral vein -On Renvela, sodium bicarb -Nephrology consult -Receiving Lasix for anasarca, will have dialysis today Status: Acute (3) RLL pneumonia: Initially on chest x-ray patient was noted to have right lower lobe pneumonia for which she received treatment with ceftriaxone and azithromycin. Currently on Zyvox and Zosyn CT chest negative for consolidative process, afebrile, on room air Status: Acute (4) Hypertension: -Hold Norvasc to 10 mg daily -Discontinue lisinopril given creatinine increase This is currently well controlled Status: Inactive (5) Diastolic CHF: -Cardiac echocardiogram shows EF of 55%, no regional wall motion abnormalities, poor quality study -d/c lasix , monitor urine output closely, Flowers catheter Status: Acute (6) Gout: Continue allopurinol Status: Acute (7) Bilateral lower extremity edema: Minimal today Status: Acute (8) Morbid obesity with BMI of 60.0-69.9, adult: Needs to follow-up with bariatric clinic, needs to be motivated to lose weight Status: Acute (9) Difficulty in walking: PT OT, however states unable to participate due to weakness Status: Acute (10) Bilateral primary osteoarthritis of hip: PT OT, pain control Status: Acute (11) HLD (hyperlipidemia): Continue simvastatin Status: Acute (12) Unable to ambulate: PT OT Status: Acute (13) Intractable pain: -Has some calf pain bilaterally, lower extremity Doppler negative for DVT Status: Acute (14) Sepsis: Status: Acute (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 -From allopurinol versus ceftriaxone -With transaminitis, acute renal failure, multiorgan dysfunction, I cannot see a rash -Prednisone has been stopped Status: Acute (16) Encephalopathy: -Much more alert, awake, oriented x3, at bedside, following all commands, cranial nerves II to XII grossly intact -ABG did not show any significant hypoxia or hypercarbia -Continue BiPAP overnight -The question is does he have meningitis in addition to vertebral osteomyelitis as the below, does not have any neck pain, no neck stiffness, no fevers, no nausea, vomiting, blurry vision, but will monitor closely -Neurochecks -Patient does have significant uremia, resolved -Septic encephalopathy, resolved Status: Acute (17) Rhabdomyolysis: -Etiology of rhabdomyolysis is uncertain, patient has been immobile, in bed, been laying on his back, area vertebral osteomyelitis as a possible etiology -Certainly compartment syndrome could be an etiology, but unlikely - CT of his pelvis did show severe left hip osteoarthritis, no significant evidence of compartment syndrome Status: Acute (18) Hyperuricemia: Status: Acute (19) Transaminitis: Worsening today Plan: -GGT, LDH, LFTs -We will continue to monitor closely Status: Acute (20) Ischemic hepatitis: -LFTs have stabilized -AST 420 -ALT 900 -Alk phos 176 -Ammonia 26 -INR 1.20 -GGT 330 -Total bili 0.8 -Acute hepatitis panel negative, HIV panel negative -Tylenol level negative -LOUIE, CMV, VZV, EBV pending, drug screen pending -CT scan of the abdomen pelvis with contrast liver unremarkable, gallbladder unremarkable, pancreas unremarkable, no biliary ductal dilatation -Right upper quadrant ultrasound shows hepatomegaly with diffuse fatty infiltration -Patient does have hypotensive episodes during dialysis, -Ischemic hepatitis likely secondary to sepsis, and hypotensive episodes during dialysis Plan: -Goal is to minimize hypotension -Minimize low blood pressures during dialysis -I have stopped all blood pressure medications -Continue to trend LFTs Status: Acute Additional A&P Information Dvt ppx: Heparin Patient is a DNR/DNI Dispo: Likely requires halfway facility placement, IV antibiotics for at least 6 weeks, likely discharge Saturday Plan for today, continue physical therapy continue antibiotics, possible dialysis, Attestations Medical Necessity Statement*: Patient requires hospitalization for vertebral osteomyelitis, acute renal failure, ischemic hepatitis Coding Level of Care Code 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
--- NOTE | 2020-08-20 12:10 | PC.OT ---
Attempted therapy, patient adamantly refused stating why don't you guys just leave me alone was present in the room. Will attempt later if there is time.
[2020-08-20 13:03] LABS: ABG PCO2 35.7 mmHg (35-45); ABG PH Result 7.49 (7.35-7.45); Alveolar-Arterial Oxygen Gradi 3.9 mmHg (5-10); Arterial Blood Gas Hematocrit 33.1 % (42-52); Base Excess ABG 3.5 mmol/L (-2.0-2.0); Blood Gas Allen Test Pos; Blood Gas Operator Identificat AMH; Blood Gas Sample Site Radial, left; Blood Gas Sample Type Arterial; Carboxyhemoglobin 1.1 %THgb (0.4-20.1); HCO3 ABG 26.9 mmol/L (22-26); HGB O2 Sat 95.3 % (95-100); Ionized Calcium Level - ABG 1.1 mmol/L (1.1-1.4); Methemoglobin < 0.0 % (0.4-1.5); Oxygen Device ROOM AIR; Oxygen Saturation ABG 96.1; PO2 ABG 75.2 mmHg (80.0-100.0); Potassium Level - ABG 4.3 mmol/L (3.5-5.0); Total Hemoglobin 10.8 g/dL (14-18)
[2020-08-20 16:53] LABS: Glucose Point of Care 99 mg/dL (70-110)
[2020-08-20] MEDS: acetaminophen 325 mg Tablet 650 MG PO (20:53)
[2020-08-20 21:30] LABS: Glucose Point of Care 114 mg/dL (70-110)
[2020-08-21] VITALS (13 sets, daily range): BP systolic 114–147; BP diastolic 64–75; PULSE 79–115; RESP 18–20; TEMP 36.4–37.7; O2SAT 93–96
[2020-08-21] MEDS: linezolid premix 600 MG/300 ML PREMIX 300 MG IV ×2 (05:24→17:17)
--- NOTE | 2020-08-21 06:40 | NUR.SHIFT ---
Patient stated that he was in [place], and would moan out in pain. When this nurse would question the patient if he was ok and needed pain medication, the patient would stated that he was fine. Only one time did the patient ask for pain medication, which was well controlled by tylenol per mar.
[2020-08-21 06:44] LABS: Basophils # 0.1 10^3/uL (0.0-0.1); Basophils % 0.3 %; Eosinophils # 0.2 10^3/uL (0.0-0.8); Eosinophils % 1.2 %; Hematocrit 33.4 % (42.0-52.0); Hemoglobin 10.3 g/dL (11.7-16.6); Lymphocytes % 5.5 %; Mean Corpuscular HGB Conc 30.8 g/dL (30.0-36.0); Mean Corpuscular Hemoglobin 27.9 pg (28.0-34.0); Mean Corpuscular Volume 90.5 fL (80-94); Mean Platelet Volume 11.6 fL (7.4-10.4); Monocytes # 1.4 10^3/uL (0.2-0.9); Monocytes % 7.7 %; Neutrophils # 15.31 10^3/uL (1.8-7.7); Neutrophils % 81.9 %; Nucleated Red Blood Cells % 0 %; Platelet Count 398 10^3/cmm (130-400); Red Blood Count 3.69 10^6/uL (4.1-5.3); Red Cell Distribution Width 15.9 % (12.1-15.1); White Blood Count 18.7 10^3/uL (4.0-10.0)
[2020-08-21 06:53] LABS: INR 1.16 (0.8-1.2)
[2020-08-21 07:27] LABS: Glucose Point of Care 135 mg/dL (70-110)
[2020-08-21 07:30] LABS: Alanine Aminotransferase 656 U/L (0-41); Albumin Level 2.6 g/dL (3.5-5.2); Alkaline Phosphatase 184 IU/L (40-130); Anion Gap 21.6 (5-19); Aspartate Amino Transferase 272 U/L (0-40); Blood Urea Nitrogen 60 mg/dL (8-23); C Reactive Protein 99.2 mg/L (0.0-4.9); Calcium 8.7 mg/dL (8.5-10.5); Carbon Dioxide 22 mmol/L (22-29); Chloride 93 mmol/L (98-107); Globulin 3.1 g/dL (1.3-4.6); Glomerular Filtration Rate 13.9 mL/min (90-130); Glucose 125 mg/dL (65-115); Magnesium 2.2 mg/dL (1.7-2.3); Osmolality Calculated 292 mOsm/kg (285-295); Phosphorus 7.3 mg/dL (2.5-4.5); Potassium 4.6 mmol/L (3.5-5.1); Sodium 132 mmol/L (136-145); Total Bilirubin 1.1 mg/dL (0.15-1.2); Total Protein 5.7 g/dL (6.6-8.7); Uric Acid 8.4 mg/dL (3.4-7.0)
[2020-08-21 07:58] LABS: Creatine Phosphokinase 401 U/L (39-308)
--- NOTE | 2020-08-21 08:17 | P.PN_ITS ---
Subjective Subjective: Interval history: feels better. is urinating. no n/v/f/c/deluna/d Medications: Reviewed: Yes Medication Review Details: Current Medications Acetaminophen (Acetaminophen 325 Mg Tablet) 650 mg PO Q6H PRN PRN Reason: MILD PAIN Last Admin: 08/20/20 20:53 Dose: 650 mg Documented by: Hydrocodone Bitart/Acetaminophen (Hydrocodone-Acetaminophen 5-325 Mg Tablet) 1 - 2 tab PO Q6H PRN PRN Reason: MODERATE TO SEVERE PAIN Last Admin: 08/18/20 18:05 Dose: 2 tab Documented by: Bisacodyl (Bisacodyl 5 Mg Tablet) 10 mg PO DAILY PRN PRN Reason: CONSTIPATION Ciprofloxacin HCl (Ciprofloxacin 500 Mg Tablet) 250 mg PO DAILY COUNTS INCLUDE 234 BEDS AT THE [facility]; Protocol Last Admin: 08/19/20 11:26 Dose: 250 mg Documented by: Dextrose (Dextrose 50% Syringe 50 Ml) 25 ml IVP ONCE PRN; Protocol PRN Reason: hypoglycemia protocol Dextrose (Dextrose 50% Syringe 50 Ml) 50 ml IVP PRN PRN; Protocol PRN Reason: hypoglycemia protocol Dextrose (Dextrose 50% Syringe 50 Ml) 25 ml IVP ONCE PRN; Protocol PRN Reason: hypoglycemia protocol Dextrose (Dextrose 50% Syringe 50 Ml) 50 ml IVP PRN PRN; Protocol PRN Reason: hypoglycemia protocol Glucagon (Glucagon 1 Mg/Ml Inj 1 Ml) 1 mg IM ONCE PRN; Protocol PRN Reason: Adult Acute Hypoglycemia Prot. Glucagon (Glucagon 1 Mg/Ml Inj 1 Ml) 1 mg IM ONCE PRN; Protocol PRN Reason: Adult Acute Hypoglycemia Prot. Haloperidol Lactate (Haloperidol Inj 5 Mg/Ml Inj 1 Ml) 1 mg IM Q4H PRN PRN Reason: AGITATION Heparin Sodium (Beef Lung) (Heparin 5,000 Unit/Ml Inj 1 Ml) 5,000 unit SUBCUT Q12H INA Last Admin: 08/21/20 05:08 Dose: Not Given Documented by: Linezolid (Zyvox Premix) 600 mg in 300 mls @ 300 mls/hr IV Q12H INA; Protocol Last Admin: 08/21/20 05:24 Dose: 300 mls/hr Documented by: Dextrose (D5w) 500 mls @ 100 mls/hr IV ONCE PRN; Protocol PRN Reason: Adult Acute Hypoglycemia Prot Dextrose (D5w) 500 mls @ 100 mls/hr IV ONCE PRN; Protocol PRN Reason: Adult Acute Hypoglycemia Prot Albumin Human (Albumin) 12.5 gm in 50 mls @ 60 mls/hr IV PRN PRN PRN Reason: Hypotension and/or symptomatic Last Infusion: 08/15/20 18:09 Dose: Infused Documented by: Albumin Human (Albumin) 12.5 gm in 50 mls @ 60 mls/hr IV PRN PRN PRN Reason: Hypotension and/or symptomatic Insulin Aspart (Insulin Aspart 100 Unit/1 Ml) 0 unit SUBCUT TIDWM INA; Protocol Last Admin: 08/20/20 17:13 Dose: Not Given Documented by: Ondansetron HCl (Ondansetron 2 Mg/Ml Sdv 2 Ml) 4 mg IVP Q8H PRN PRN Reason: vomiting, or N/V if npo Pantoprazole Sodium (Pantoprazole Dr 40 Mg Tablet) 40 mg PO DAILY COUNTS INCLUDE 234 BEDS AT THE [facility] Last Admin: 08/19/20 11:27 Dose: 40 mg Documented by: Sevelamer Carbonate (Sevelamer 800 Mg Tablet) 2,400 mg PO TIDWM COUNTS INCLUDE 234 BEDS AT THE [facility] Last Admin: 08/20/20 17:46 Dose: 2,400 mg Documented by: Vitals/I&O/Wt Last Vital Signs Temp 99.8 F H 08/21/20 08:00 Pulse 99 08/21/20 08:00 Resp 18 08/21/20 08:00 BP 137/72 08/21/20 08:00 Pulse Ox 95 08/21/20 08:00 08/20/20 08/21/20 08/21/20 22:59 06:59 14:59 Intake Total 300 / 300 Output Total 300 / 650 525 / 525 Balance 0 / -350 -525 / -525 Physical Exam Narrative: EXAM NARRATIVE: obese man in bed, comfortable, NARD VS noted heent- nc/at, eomi neck no jvp lungs- good air movement b/l Rt ACW dialysis catheter heart reg,no rub abd soft, nt, nd, +BS ext b/l edema improved neuro- moves, a,a, o x 3 Urinary Catheter Management^: Flowers: Cath Placed During This Visit: yes, but has since been removed by the nurse Reason for Continuing Indwelling Catheter: Accurate Measurement of Urinary Output in Critically Ill Patients Urinary Catheter Date of Insertion: 08/05/20 Urinary Catheter Time of Insertion: 15:00 Date Urinary Catheter Removed: 08/09/20 Time Urinary Catheter Discontinued: 05:45 Data : 08/21/20 05:52 08/21/20 05:52 Micro: Microbiology 08/20/20 18:40 Blood Culture - Preliminary Blood SPECIMEN COLLECTED 08/20/20 05:52 Blood Culture - Preliminary Blood SPECIMEN COLLECTED A&P Additional A&P Information 1. MAGGIE - likely infection mediated ATN/ Staph super infection PIGN - remains oliguric - plan for dialysis on Saturday - am labs - am eval for dialysis -lasix to see if inc diuresis 2. Vertebral osteomyelitis - on Zyvox/Cipro - Mgmt per primary team -wbc remains 18 3. Lytes - hyponatremia- from renal failure hyperphosphatemia- on binder therapy, effective dialysis will help to some degree 4. inc lfts improving 5. 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
[2020-08-21 08:20] LABS: NT Pro B Type Natriuretic Pept 204 pg/mL (0-125)
[2020-08-21 08:21] LABS: Procalcitonin 0.99 ng/mL (0-0.5)
[2020-08-21] MEDS: FUROsemide 10 mg/mL SDV 4mL 40 MG IVP (09:52)
[2020-08-21 11:30] LABS: Glucose Point of Care 121 mg/dL (70-110)
--- NOTE | 2020-08-21 11:41 | PC.SOCIAL ---
IMM Updated Updated pt on Pg 2 IMM. No questions voiced. Provided pt a copy. Signed, dated, & timed copy in chart.
[2020-08-21 12:03] LABS: HSV 1 DNA NOT DETECTED; HSV 2 DNA NOT DETECTED; HSV Source SERUM
--- NOTE | 2020-08-21 12:40 | PM.PN ---
Subjective Subjective: Interval history: This morning patient was examined, he had some low-grade fevers overnight, some complaints of right chest warmth and redness, which is not visible today, he is alert to person, place, not time, is a bit more confused than normal, he tells me he just wants to get up out of his bed, he wants to get out of the hospital, Vitals/I&O/Wt Last Vital Signs Temp 99.8 F H 08/21/20 08:00 Pulse 97 08/21/20 12:00 Resp 18 08/21/20 08:00 BP 137/72 08/21/20 08:00 Pulse Ox 95 08/21/20 08:49 08/20/20 08/21/20 08/21/20 22:59 06:59 14:59 Intake Total 300 / 300 Output Total 300 / 650 525 / 525 Balance 0 / -350 -525 / -525 Physical Exam Narrative: EXAM NARRATIVE: Morbidly obese male Large pannus Const: COMMON NORMALS: no acute distress ORIENTATION/CONSCIOUSNESS: Yes awake, Yes oriented to person, Yes oriented to place and Yes confused; not oriented to time HENMT: COMMON NORMALS: normocephalic HEAD & SCALP: normocephalic Neck/C-Spine: COMMON NORMALS: no JVD Chest: OTHER: Right chest, dialysis catheter in place Resp: COMMON NORMALS: normal respiratory effort, No retractions, No use of accessory muscles and clear to auscultation bilaterally AUSCULTATION: clear to auscultation bilaterally Cardio: COMMON NORMALS: no JVD, regular rate, regular rhythm, S1 normal heart sound present and S2 normal heart sound present RATE: regular rate RHYTHM: regular rhythm HEART SOUNDS: S1 normal heart sound present and S2 normal heart sound present GI: COMMON NORMALS: Normal to inspection, nondistended, normoactive bowel sounds present, Soft to palpation, non-tender, No hepatosplenomegaly present, no masses and no bruits PALPATION: Yes Soft to palpation and Yes No hepatosplenomegaly present Extremity: COMMON NORMALS: capillary refill normal, no clubbing, cyanosis or edema, no calf tenderness and no pedal edema Neuro: SENSORIUM/ORIENTATION: Yes oriented to person, Yes oriented to place and No oriented to time Psych: COMMON NORMALS: mental status grossly normal Skin: NARRATIVE SKIN EXAM: Right chest, dialysis catheter in place, no surrounding erythema, swelling, tenderness Urinary Catheter Management^: Flowers: Cath Placed During This Visit: yes, but has since been removed by the nurse Reason for Continuing Indwelling Catheter: Accurate Measurement of Urinary Output in Critically Ill Patients Urinary Catheter Date of Insertion: 08/05/20 Urinary Catheter Time of Insertion: 15:00 Date Urinary Catheter Removed: 08/09/20 Time Urinary Catheter Discontinued: 05:45 Data : 08/21/20 05:52 08/21/20 05:52 Micro: Microbiology 08/20/20 18:40 Blood Culture - Preliminary Blood SPECIMEN COLLECTED 08/20/20 05:52 Blood Culture - Preliminary Blood SPECIMEN COLLECTED A&P Assessment and plan (1) Vertebral osteomyelitis: -With sepsis -CT of abdomen pelvis shows:Lytic changes in the L3 and L4 vertebral bodies without adjacent inflammation. Indolent vertebral body osteomyelitis, metastatic disease or degenerative cystic changes in the vertebral bodies. -CT-of the cervical spine does not show any significant osteomyelitis -I went over CT scan findings with Dr. Cuellar, she feels that changes in vertebral bodies are likely related to osteomyelitis -Unfortunately patient cannot have a MRI given his body habitus -Unfortunately cannot perform a tagged white blood cell scan as he cannot fit in the machine -Unfortunate patient cannot have a CT-guided biopsy, due to his body habitus, difficulty accessing site -White blood cell count 16.4, ESR greater than 120, procalcitonin improving -This is certainly a mixed picture, sepsis findings, given transaminitis, acute renal failure -Blood pressure normotensive, afebrile, saturating in the high 90s on room air -Lactic acid within normal limits -Inflammatory markers improving -Persistent leukocytosis, neutrophilic likely secondary to prednisone -Had low-grade fevers, 99.8, right-sided chest warmth and redness complaints, I cannot see any chest warmth or redness Plan: -Continue neurochecks -Continue bariatric bed -Needs to get up out of bed into bariatric chair -Placed on broad-spectrum antibiotic therapy Zyvox and the descalated to Cipro -Follow blood cultures, repeated blood cultures after low-grade fevers, certainly dialysis catheter infection is a possibility, we will continue to monitor -We will do bilateral lower extremity ultrasounds -Monitor clinical progress -Prednisone has been stopped -DNR/DNI -Heparin for DVT prophylaxis -Patient was updated -Discussed with PT OT, to do physical therapy in bariatric chair Status: Acute (2) Acute renal failure: -Etiology multifactorial's rhabdomyolysis and/or sepsis and or drug reaction and/or dress syndrome -Has not received any NSAIDs, is on lisinopril hydrochlorthiazide which has been held -Was on Lasix therapy -He does have a allergy to cephalexin, allergy unknown, patient is unsure what the allergy is, could he possibly have dress syndrome, however does not have significant eosinophilia on CBC -We will hold allopurinol as associate with dress syndrome,, Denis Diogo syndrome -CPK and uric acid are trending down -CT scan of the abdomen pelvis does not show any significant obstructive uropathy, or kidney stone, but it was a difficult study -Urine output 825 cc -Mild acidosis, hyponatremia, hyperkalemia, uremia, hypocalcemia, elevated phosphorus, elevated magnesium, anasarca Plan: -Right tunneled dialysis catheter in place, placed by Dr. Chino -Nephrology on consult -Urine studies no eosinophils seen -Peripheral smear toxic granulations, no eosinophils -Trend CPK and uric acids, improving -Urine output remains minimal, but improving -Dialysis catheter placement placement to right femoral vein -On Renvela, sodium bicarb -Nephrology consult -Receiving Lasix for anasarca, will have dialysis today Status: Acute (3) RLL pneumonia: Initially on chest x-ray patient was noted to have right lower lobe pneumonia for which she received treatment with ceftriaxone and azithromycin. Currently on Zyvox and Cipro CT chest negative for consolidative process, afebrile, on room air Status: Acute (4) Hypertension: -Hold Norvasc to 10 mg daily -Discontinue lisinopril given creatinine increase This is currently well controlled Status: Inactive (5) Diastolic CHF: -Cardiac echocardiogram shows EF of 55%, no regional wall motion abnormalities, poor quality study -d/c lasix , monitor urine output closely, Flowers catheter Status: Acute (6) Gout: Continue allopurinol Status: Acute (7) Bilateral lower extremity edema: Minimal today Status: Acute (8) Morbid obesity with BMI of 60.0-69.9, adult: Needs to follow-up with bariatric clinic, needs to be motivated to lose weight Status: Acute (9) Difficulty in walking: PT OT, however states unable to participate due to weakness Status: Acute (10) Bilateral primary osteoarthritis of hip: PT OT, pain control Status: Acute (11) HLD (hyperlipidemia): Continue simvastatin Status: Acute (12) Unable to ambulate: PT OT Status: Acute (13) Intractable pain: -Has some calf pain bilaterally, lower extremity Doppler negative for DVT Status: Acute (14) Sepsis: Status: Acute (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 -From allopurinol versus ceftriaxone -With transaminitis, acute renal failure, multiorgan dysfunction, I cannot see a rash -Prednisone has been stopped Status: Acute (16) Encephalopathy: -Continues to have some episodes of confusion, alert to person, place, not to time, follows all commands, cranial nerves II to XII grossly intact -ABG did not show any significant hypoxia or hypercarbia -Continue BiPAP overnight -The question is does he have meningitis in addition to vertebral osteomyelitis as the below, does not have any neck pain, no neck stiffness, no fevers, no nausea, vomiting, blurry vision, but will monitor closely -Neurochecks -Patient does have significant uremia, resolved -Septic encephalopathy, resolved -We will continue to monitor -Plan on performing a CT of the head today Status: Acute (17) Rhabdomyolysis: -Etiology of rhabdomyolysis is uncertain, patient has been immobile, in bed, been laying on his back, area vertebral osteomyelitis as a possible etiology -Certainly compartment syndrome could be an etiology, but unlikely - CT of his pelvis did show severe left hip osteoarthritis, no significant evidence of compartment syndrome Status: Acute (18) Hyperuricemia: Status: Acute (19) Transaminitis: Worsening today Plan: -GGT, LDH, LFTs -We will continue to monitor closely Status: Acute (20) Ischemic hepatitis: -LFTs have stabilized -AST 272 -ALT 656 -Alk phos 184 -Ammonia 26 -INR 1.20 -GGT 330 -Total bili 0.8 -Acute hepatitis panel negative, HIV panel negative -Tylenol level negative -LOUIE, CMV, VZV, EBV pending, drug screen pending -CT scan of the abdomen pelvis with contrast liver unremarkable, gallbladder unremarkable, pancreas unremarkable, no biliary ductal dilatation -Right upper quadrant ultrasound shows hepatomegaly with diffuse fatty infiltration -Patient does have hypotensive episodes during dialysis, -Ischemic hepatitis likely secondary to sepsis, and hypotensive episodes during dialysis Plan: -Goal is to minimize hypotension -Minimize low blood pressures during dialysis -I have stopped all blood pressure medications -Continue to trend LFTs Status: Acute Additional A&P Information Dvt ppx: Heparin Patient is a DNR/DNI Dispo: Likely requires residential facility placement, IV antibiotics for at least 6 weeks, likely discharge Saturday Plan for today, continue physical therapy continue antibiotics, dialysis on Saturday, will do bilateral extremity ultrasounds. 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
--- NOTE | 2020-08-21 15:04 | PC.NURSE ---
pt refused am and afternoon meds. pt refused lunch.
[2020-08-21] MEDS: heparin 5,000 unit/mL INJ 1 mL 5000 UNIT SUBCUT (17:17)
[2020-08-21 17:23] LABS: Glucose Point of Care 127 mg/dL (70-110)
[2020-08-21 19:03] LABS: Smooth Muscle Ab Screen NEGATIVE (NEGATIVE)
--- NOTE | 2020-08-21 19:19 | PC.NURSE ---
pt refused evening PO medications. pt refused to turn.
--- NOTE | 2020-08-21 20:01 | PC.NURSE ---
Patient refused to go to down for CT. Explained to patient why the CT was ordered and why he needs to participate in parts of his care. Patient stated I dont feel like going down to get a CT because I am tired and sore all over. CT notified.
[2020-08-21 21:39] LABS: Glucose Point of Care 135 mg/dL (70-110)
[2020-08-22] VITALS (12 sets, daily range): BP systolic 112–123; BP diastolic 63–76; PULSE 74–108; RESP 16–23; TEMP 36.4–37; O2SAT 92–98
--- NOTE | 2020-08-22 | ECG_ITS ---
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 Measurements Intervals [place] Rate: 96 P: 54 NH: 165 QRS: 11 QRSD: 98 T: 27 QT: 352 QTc: 445 Interpretive Statements SINUS RHYTHM No previous ECG available for comparison Electronically Signed On 08-22-2020 19:09:37 DENTAL LABORATORY SUPERVISOR by Hema Delcid M.D. [id number]
[2020-08-22] MEDS: heparin 5,000 unit/mL INJ 1 mL 5000 UNIT SUBCUT ×2 (04:17→18:37)
[2020-08-22 05:39] LABS: Basophils % 0.2 %; Eosinophils # 0.2 10^3/uL (0.0-0.8); Eosinophils % 0.8 %; Hemoglobin 10.8 g/dL (11.7-16.6); Lymphocytes # 1.1 10^3/uL (0.8-4.8); Lymphocytes % 5.5 %; Mean Corpuscular HGB Conc 30.9 g/dL (30.0-36.0); Mean Corpuscular Hemoglobin 27.5 pg (28.0-34.0); Mean Corpuscular Volume 89.1 fL (80-94); Monocytes # 1.5 10^3/uL (0.2-0.9); Monocytes % 7.3 %; Neutrophils # 17.38 10^3/uL (1.8-7.7); Neutrophils % 83.2 %; Nucleated Red Blood Cells % 0 %; Platelet Count 399 10^3/cmm (130-400); Red Blood Count 3.93 10^6/uL (4.1-5.3); Red Cell Distribution Width 15.9 % (12.1-15.1); White Blood Count 20.9 10^3/uL (4.0-10.0)
[2020-08-22] MEDS: linezolid premix 600 MG/300 ML PREMIX 300 MG IV (05:53)
[2020-08-22 06:01] LABS: INR 1.19 (0.8-1.2)
[2020-08-22 06:16] LABS: NT Pro B Type Natriuretic Pept 258 pg/mL (0-125); Procalcitonin 1.41 ng/mL (0-0.5)
[2020-08-22 06:33] LABS: Alanine Aminotransferase 519 U/L (0-41); Albumin Level 2.9 g/dL (3.5-5.2); Alkaline Phosphatase 193 IU/L (40-130); Anion Gap 25.6 (5-19); Aspartate Amino Transferase 170 U/L (0-40); Blood Urea Nitrogen 65 mg/dL (8-23); C Reactive Protein 218.5 mg/L (0.0-4.9); Calcium 9.1 mg/dL (8.5-10.5); Carbon Dioxide 21 mmol/L (22-29); Chloride 94 mmol/L (98-107); Creatine Phosphokinase 276 U/L (39-308); Globulin 3.2 g/dL (1.3-4.6); Glomerular Filtration Rate 13.5 mL/min (90-130); Glucose 126 mg/dL (65-115); Magnesium 2.1 mg/dL (1.7-2.3); Osmolality Calculated 302 mOsm/kg (285-295); Potassium 4.6 mmol/L (3.5-5.1); Sodium 136 mmol/L (136-145); Total Protein 6.1 g/dL (6.6-8.7); Uric Acid 9.6 mg/dL (3.4-7.0)
[2020-08-22 06:58] LABS: Glucose Point of Care 125 mg/dL (70-110)
[2020-08-22] MEDS: sevelamer 800 mg Tablet 2400 MG PO (09:33)
[2020-08-22] MEDS: ciprofloxacin 500 mg Tablet 250 MG PO (09:34)
[2020-08-22] MEDS: pantoprazole DR 40 mg Tablet PO (09:34)
--- NOTE | 2020-08-22 09:34 | P.PN_ITS ---
Subjective Subjective: Interval history: pt refused some medicines. confused. states he is eating, not sob. he is urinating. Medications: Reviewed: Yes Medication Review Details: Current Medications Acetaminophen (Acetaminophen 325 Mg Tablet) 650 mg PO Q6H PRN PRN Reason: MILD PAIN Last Admin: 08/20/20 20:53 Dose: 650 mg Documented by: Hydrocodone Bitart/Acetaminophen (Hydrocodone-Acetaminophen 5-325 Mg Tablet) 1 - 2 tab PO Q6H PRN PRN Reason: MODERATE TO SEVERE PAIN Last Admin: 08/18/20 18:05 Dose: 2 tab Documented by: Bisacodyl (Bisacodyl 5 Mg Tablet) 10 mg PO DAILY PRN PRN Reason: CONSTIPATION Ciprofloxacin HCl (Ciprofloxacin 500 Mg Tablet) 250 mg PO DAILY [facility]; Protocol Last Admin: 08/21/20 11:37 Dose: Not Given Documented by: Dextrose (Dextrose 50% Syringe 50 Ml) 25 ml IVP ONCE PRN; Protocol PRN Reason: hypoglycemia protocol Dextrose (Dextrose 50% Syringe 50 Ml) 50 ml IVP PRN PRN; Protocol PRN Reason: hypoglycemia protocol Dextrose (Dextrose 50% Syringe 50 Ml) 25 ml IVP ONCE PRN; Protocol PRN Reason: hypoglycemia protocol Dextrose (Dextrose 50% Syringe 50 Ml) 50 ml IVP PRN PRN; Protocol PRN Reason: hypoglycemia protocol Furosemide (Furosemide 10 Mg/Ml Sdv 4ml) 40 mg IVP Q12H [facility] Last Admin: 08/21/20 19:52 Dose: Not Given Documented by: Glucagon (Glucagon 1 Mg/Ml Inj 1 Ml) 1 mg IM ONCE PRN; Protocol PRN Reason: Adult Acute Hypoglycemia Prot. Glucagon (Glucagon 1 Mg/Ml Inj 1 Ml) 1 mg IM ONCE PRN; Protocol PRN Reason: Adult Acute Hypoglycemia Prot. Haloperidol Lactate (Haloperidol Inj 5 Mg/Ml Inj 1 Ml) 1 mg IM Q4H PRN PRN Reason: AGITATION Heparin Sodium (Beef Lung) (Heparin 5,000 Unit/Ml Inj 1 Ml) 5,000 unit SUBCUT Q12H INA Last Admin: 08/22/20 04:17 Dose: 5,000 unit Documented by: Linezolid (Zyvox Premix) 600 mg in 300 mls @ 300 mls/hr IV Q12H INA; Protocol Last Admin: 08/22/20 05:53 Dose: 300 mls/hr Documented by: Dextrose (D5w) 500 mls @ 100 mls/hr IV ONCE PRN; Protocol PRN Reason: Adult Acute Hypoglycemia Prot Dextrose (D5w) 500 mls @ 100 mls/hr IV ONCE PRN; Protocol PRN Reason: Adult Acute Hypoglycemia Prot Albumin Human (Albumin) 12.5 gm in 50 mls @ 60 mls/hr IV PRN PRN PRN Reason: Hypotension and/or symptomatic Last Infusion: 08/15/20 18:09 Dose: Infused Documented by: Albumin Human (Albumin) 12.5 gm in 50 mls @ 60 mls/hr IV PRN PRN PRN Reason: Hypotension and/or symptomatic Insulin Aspart (Insulin Aspart 100 Unit/1 Ml) 0 unit SUBCUT TIDWM [facility]; Protocol Last Admin: 08/22/20 08:46 Dose: Not Given Documented by: Ondansetron HCl (Ondansetron 2 Mg/Ml Sdv 2 Ml) 4 mg IVP Q8H PRN PRN Reason: vomiting, or N/V if npo Pantoprazole Sodium (Pantoprazole Dr 40 Mg Tablet) 40 mg PO DAILY [facility] Last Admin: 08/21/20 11:38 Dose: Not Given Documented by: Sevelamer Carbonate (Sevelamer 800 Mg Tablet) 2,400 mg PO TIDWM [facility] Last Admin: 08/21/20 17:18 Dose: Not Given Documented by: Vitals/I&O/Wt Last Vital Signs Temp 98.6 F 08/22/20 04:00 Pulse 101 H 08/22/20 04:43 Resp 23 H 08/22/20 04:00 BP 120/76 08/22/20 04:00 Pulse Ox 94 08/22/20 04:00 08/21/20 08/22/20 08/22/20 22:59 06:59 14:59 Intake Total 540 / 540 Output Total 850 / 1375 450 / 1825 Balance -310 / -835 -450 / -1285 Physical Exam Narrative: EXAM NARRATIVE: obese man in bed, comfortable, NARD VS noted heent- nc/at, eomi neck no jvp lungs- good air movement b/l Rt ACW dialysis catheter heart reg,no rub abd soft, nt, nd, +BS ext b/l edema improved neuro- moves, a,a, o x 3 Urinary Catheter Management^: Flowers: Cath Placed During This Visit: yes, but has since been removed by the nurse Reason for Continuing Indwelling Catheter: Accurate Measurement of Urinary Output in Critically Ill Patients Urinary Catheter Date of Insertion: 08/05/20 Urinary Catheter Time of Insertion: 15:00 Date Urinary Catheter Removed: 08/09/20 Time Urinary Catheter Discontinued: 05:45 Data : 08/22/20 05:05 08/22/20 05:05 Micro: Microbiology 08/20/20 18:40 Blood Culture - Preliminary Blood NEGATIVE TO DATE 08/20/20 05:52 Blood Culture - Preliminary Blood NEGATIVE TO DATE 08/16/20 15:41 Blood Culture - Final Blood NO GROWTH AFTER 5 DAYS 08/16/20 15:51 Blood Culture - Final Blood NO GROWTH AFTER 5 DAYS A&P Additional A&P Information 1. MAGGIE - likely infection mediated ATN/ Staph super infection PIGN - remains oliguric - hold HD and monitor for renal recovery -excellent diuresis w/ lasix. may be able to dec dose - cr 4.4 2. Vertebral osteomyelitis - on Zyvox/Cipro - Mgmt per primary team -wbc continues to inc RRL pna 3. Lytes - hyponatremia- from renal failure hyperphosphatemia- on binder therapy, improving 4. inc lfts improving 5. 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
[2020-08-22] MEDS: FUROsemide 10 mg/mL SDV 4mL 40 MG IVP ×2 (09:35→19:46)
[2020-08-22 13:07] LABS: Glucose Point of Care 133 mg/dL (70-110)
--- NOTE | 2020-08-22 13:41 | XR_ITS ---
WS: [id number] PORTABLE CHEST HISTORY: sob COMPARISON: 08/15/2020 Lung volumes are decreased. Mild pulmonary congestion. Dialysis catheter with tips overlying the RIGH T heart. Quality of this examination is significantly limited. Atelectasis posterior to the LEFT hear t. No pleural effusion or pneumothorax. Cardiac size: Mildly enlarged cardiac silhouette. Mediastinum/Aorta: Mild atherosclerosis aorta. No osseous abnormality seen. XR/XR chest 1V portable [id number] IMPRESSION: 1. Quality examination is limited by body habitus. 2. Decreased lung volumes with atelectasis posterior to the LEFT heart. 3. Mild pulmonary congestion.
--- NOTE | 2020-08-22 13:42 | PM.PN ---
Subjective Subjective: Interval history: This morning patient was examined, he is alert to person, place, to the month, not to the year, he remembers who I am, he remembers why he is here in the hospital, this morning he had a discussion with patient about his motivations, he does feel down depressed and sad, no thoughts of hurting himself no thoughts of hurting others, he just does not have the motivation to work with physical therapy, he is sitting in a chair, he can go home, I advised that the only real option for him is to go to a group home and he understands this, Medications: Medication Review Details: Current Medications Acetaminophen (Acetaminophen 325 Mg Tablet) 650 mg PO Q6H PRN PRN Reason: MILD PAIN Last Admin: 08/20/20 20:53 Dose: 650 mg Documented by: Hydrocodone Bitart/Acetaminophen (Hydrocodone-Acetaminophen 5-325 Mg Tablet) 1 - 2 tab PO Q6H PRN PRN Reason: MODERATE TO SEVERE PAIN Last Admin: 08/18/20 18:05 Dose: 2 tab Documented by: Bisacodyl (Bisacodyl 5 Mg Tablet) 10 mg PO DAILY PRN PRN Reason: CONSTIPATION Ciprofloxacin HCl (Ciprofloxacin 500 Mg Tablet) 250 mg PO DAILY INA; Protocol Last Admin: 08/21/20 11:37 Dose: Not Given Documented by: Dextrose (Dextrose 50% Syringe 50 Ml) 25 ml IVP ONCE PRN; Protocol PRN Reason: hypoglycemia protocol Dextrose (Dextrose 50% Syringe 50 Ml) 50 ml IVP PRN PRN; Protocol PRN Reason: hypoglycemia protocol Dextrose (Dextrose 50% Syringe 50 Ml) 25 ml IVP ONCE PRN; Protocol PRN Reason: hypoglycemia protocol Dextrose (Dextrose 50% Syringe 50 Ml) 50 ml IVP PRN PRN; Protocol PRN Reason: hypoglycemia protocol Furosemide (Furosemide 10 Mg/Ml Sdv 4ml) 40 mg IVP Q12H INA Last Admin: 08/21/20 19:52 Dose: Not Given Documented by: Glucagon (Glucagon 1 Mg/Ml Inj 1 Ml) 1 mg IM ONCE PRN; Protocol PRN Reason: Adult Acute Hypoglycemia Prot. Glucagon (Glucagon 1 Mg/Ml Inj 1 Ml) 1 mg IM ONCE PRN; Protocol PRN Reason: Adult Acute Hypoglycemia Prot. Haloperidol Lactate (Haloperidol Inj 5 Mg/Ml Inj 1 Ml) 1 mg IM Q4H PRN PRN Reason: AGITATION Heparin Sodium (Beef Lung) (Heparin 5,000 Unit/Ml Inj 1 Ml) 5,000 unit SUBCUT Q12H [facility] Last Admin: 08/22/20 04:17 Dose: 5,000 unit Documented by: Linezolid (Zyvox Premix) 600 mg in 300 mls @ 300 mls/hr IV Q12H [facility]; Protocol Last Admin: 08/22/20 05:53 Dose: 300 mls/hr Documented by: Dextrose (D5w) 500 mls @ 100 mls/hr IV ONCE PRN; Protocol PRN Reason: Adult Acute Hypoglycemia Prot Dextrose (D5w) 500 mls @ 100 mls/hr IV ONCE PRN; Protocol PRN Reason: Adult Acute Hypoglycemia Prot Albumin Human (Albumin) 12.5 gm in 50 mls @ 60 mls/hr IV PRN PRN PRN Reason: Hypotension and/or symptomatic Last Infusion: 08/15/20 18:09 Dose: Infused Documented by: Albumin Human (Albumin) 12.5 gm in 50 mls @ 60 mls/hr IV PRN PRN PRN Reason: Hypotension and/or symptomatic Insulin Aspart (Insulin Aspart 100 Unit/1 Ml) 0 unit SUBCUT TIDWM [facility]; Protocol Last Admin: 08/22/20 08:46 Dose: Not Given Documented by: Ondansetron HCl (Ondansetron 2 Mg/Ml Sdv 2 Ml) 4 mg IVP Q8H PRN PRN Reason: vomiting, or N/V if npo Pantoprazole Sodium (Pantoprazole Dr 40 Mg Tablet) 40 mg PO DAILY [facility] Last Admin: 08/21/20 11:38 Dose: Not Given Documented by: Sevelamer Carbonate (Sevelamer 800 Mg Tablet) 2,400 mg PO TIDWM [facility] Last Admin: 08/21/20 17:18 Dose: Not Given Documented by: Vitals/I&O/Wt Last Vital Signs Temp 98.6 F 08/22/20 08:00 Pulse 101 H 08/22/20 04:43 Resp 23 H 08/22/20 04:00 BP 120/76 08/22/20 04:00 Pulse Ox 94 08/22/20 04:00 08/21/20 08/22/20 08/22/20 22:59 06:59 14:59 Intake Total 540 / 540 240 / 240 Output Total 850 / 1375 450 / 1825 Balance -310 / -835 -450 / -1285 240 / 240 Physical Exam Narrative: EXAM NARRATIVE: Morbidly obese male Large pannus Const: COMMON NORMALS: no acute distress NUTRITIONAL APPEARANCE: obese ORIENTATION/CONSCIOUSNESS: Yes awake, Yes oriented to person and Yes oriented to place; not oriented to time HENMT: COMMON NORMALS: normocephalic HEAD & SCALP: normocephalic Neck/C-Spine: COMMON NORMALS: no JVD Resp: COMMON NORMALS: normal respiratory effort, No retractions, No use of accessory muscles and clear to auscultation bilaterally AUSCULTATION: clear to auscultation bilaterally Cardio: COMMON NORMALS: no JVD, regular rate, regular rhythm, S1 normal heart sound present and S2 normal heart sound present RATE: regular rate RHYTHM: regular rhythm HEART SOUNDS: S1 normal heart sound present and S2 normal heart sound present GI: COMMON NORMALS: Normal to inspection, nondistended, normoactive bowel sounds present, Soft to palpation, non-tender, No hepatosplenomegaly present, no masses and no bruits PALPATION: Yes Soft to palpation and Yes No hepatosplenomegaly present Extremity: COMMON NORMALS: capillary refill normal, no clubbing, cyanosis or edema, no calf tenderness and no pedal edema Neuro: COMMON NORMALS: CN's II-XII intact bilaterally, moves all extremities and no focal motor deficits SENSORIUM/ORIENTATION: Yes oriented to person, Yes oriented to place and No oriented to time Psych: COMMON NORMALS: mental status grossly normal Skin: NARRATIVE SKIN EXAM: Right chest, dialysis catheter in place, no surrounding erythema, swelling, tenderness Urinary Catheter Management^: Flowers: Cath Placed During This Visit: yes, but has since been removed by the nurse Reason for Continuing Indwelling Catheter: Accurate Measurement of Urinary Output in Critically Ill Patients Urinary Catheter Date of Insertion: 08/05/20 Urinary Catheter Time of Insertion: 15:00 Date Urinary Catheter Removed: 08/09/20 Time Urinary Catheter Discontinued: 05:45 Data : 08/22/20 05:05 08/22/20 05:05 Micro: Microbiology 08/20/20 18:40 Blood Culture - Preliminary Blood NEGATIVE TO DATE 08/20/20 05:52 Blood Culture - Preliminary Blood NEGATIVE TO DATE 08/16/20 15:41 Blood Culture - Final Blood NO GROWTH AFTER 5 DAYS 08/16/20 15:51 Blood Culture - Final Blood NO GROWTH AFTER 5 DAYS A&P Assessment and plan (1) Vertebral osteomyelitis: -With sepsis -CT of abdomen pelvis shows:Lytic changes in the L3 and L4 vertebral bodies without adjacent inflammation. Indolent vertebral body osteomyelitis, metastatic disease or degenerative cystic changes in the vertebral bodies. -CT-of the cervical spine does not show any significant osteomyelitis -I went over CT scan findings with Dr. Cuellar, she feels that changes in vertebral bodies are likely related to osteomyelitis -Unfortunately patient cannot have a MRI given his body habitus -Unfortunately cannot perform a tagged white blood cell scan as he cannot fit in the machine -Unfortunate patient cannot have a CT-guided biopsy, due to his body habitus, difficulty accessing site -White blood cell count 20.9, ESR greater than 120, procalcitonin improving -This is certainly a mixed picture, sepsis findings, given transaminitis, acute renal failure -Blood pressure normotensive, afebrile, saturating in the high 90s on room air -Lactic acid within normal limits -Inflammatory markers improving -Persistent leukocytosis, neutrophilic likely secondary to prednisone, but will speak to infectious disease -Had low-grade fever have resolved right-sided chest warmth and redness complaints, I cannot see any chest warmth or redness Plan: -Continue neurochecks -Continue bariatric bed -Needs to get up out of bed into bariatric chair -Placed on broad-spectrum antibiotic therapy Zyvox and the descalated to Cipro -Follow blood cultures, repeated blood cultures after low-grade fevers, certainly dialysis catheter infection is a possibility, we will continue to monitor -We will do bilateral lower extremity ultrasounds -CT of the head, chest x-ray -We will discuss with infectious disease -Monitor clinical progress -Prednisone has been stopped -DNR/DNI -Heparin for DVT prophylaxis -Patient was updated -Discussed with PT OT, to do physical therapy in bariatric chair Status: Acute (2) Acute renal failure: -Etiology multifactorial's rhabdomyolysis and/or sepsis and or drug reaction and/or dress syndrome -Has not received any NSAIDs, is on lisinopril hydrochlorthiazide which has been held -Was on Lasix therapy -He does have a allergy to cephalexin, allergy unknown, patient is unsure what the allergy is, could he possibly have dress syndrome, however does not have significant eosinophilia on CBC -We will hold allopurinol as associate with dress syndrome,, Denis Diogo syndrome -CPK and uric acid are trending down -CT scan of the abdomen pelvis does not show any significant obstructive uropathy, or kidney stone, but it was a difficult study -Urine output 1300 cc -Mild acidosis, hyponatremia, hyperkalemia, uremia, hypocalcemia, elevated phosphorus, elevated magnesium, anasarca Plan: -Right tunneled dialysis catheter in place, placed by Dr. Chino -Nephrology on consult -Urine studies no eosinophils seen -Peripheral smear toxic granulations, no eosinophils -Trend CPK and uric acids, improving -Urine output remains minimal, but improving -Dialysis catheter placement placement to right femoral vein -On Renvela, sodium bicarb -Nephrology consult Status: Acute (3) RLL pneumonia: Initially on chest x-ray patient was noted to have right lower lobe pneumonia for which she received treatment with ceftriaxone and azithromycin. Currently on Zyvox and Cipro CT chest negative for consolidative process, afebrile, on room air Status: Acute (4) Hypertension: -Hold Norvasc to 10 mg daily -Discontinue lisinopril given creatinine increase This is currently well controlled Status: Inactive (5) Diastolic CHF: -Cardiac echocardiogram shows EF of 55%, no regional wall motion abnormalities, poor quality study -d/c lasix , monitor urine output closely, Flowers catheter Status: Acute (6) Gout: Continue allopurinol Status: Acute (7) Bilateral lower extremity edema: Minimal today Status: Acute (8) Morbid obesity with BMI of 60.0-69.9, adult: Needs to follow-up with bariatric clinic, needs to be motivated to lose weight Status: Acute (9) Difficulty in walking: PT OT, however states unable to participate due to weakness Status: Acute (10) Bilateral primary osteoarthritis of hip: PT OT, pain control Status: Acute (11) HLD (hyperlipidemia): Continue simvastatin Status: Acute (12) Unable to ambulate: PT OT Status: Acute (13) Intractable pain: -Has some calf pain bilaterally, lower extremity Doppler negative for DVT Status: Acute (14) Sepsis: Status: Acute (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 -From allopurinol versus ceftriaxone -With transaminitis, acute renal failure, multiorgan dysfunction, I cannot see a rash -Prednisone has been stopped Status: Acute (16) Encephalopathy: -Continues to have some episodes of confusion, alert to person, place, not to time, follows all commands, cranial nerves II to XII grossly intact -ABG did not show any significant hypoxia or hypercarbia -Continue BiPAP overnight -The question is does he have meningitis in addition to vertebral osteomyelitis as the below, does not have any neck pain, no neck stiffness, no fevers, no nausea, vomiting, blurry vision, but will monitor closely -Neurochecks -Patient does have significant uremia, resolved -Septic encephalopathy, resolved -We will continue to monitor -Plan on performing a CT of the head today Status: Acute (17) Rhabdomyolysis: -Etiology of rhabdomyolysis is uncertain, patient has been immobile, in bed, been laying on his back, area vertebral osteomyelitis as a possible etiology -Certainly compartment syndrome could be an etiology, but unlikely - CT of his pelvis did show severe left hip osteoarthritis, no significant evidence of compartment syndrome Status: Acute (18) Hyperuricemia: Status: Acute (19) Transaminitis: Worsening today Plan: -GGT, LDH, LFTs -We will continue to monitor closely Status: Acute (20) Ischemic hepatitis: -LFTs have stabilized -Alk phos 184 -Ammonia 26 -INR 1.20 -GGT 330 -Total bili 0.8 -Acute hepatitis panel negative, HIV panel negative -Tylenol level negative -LOUIE, CMV, VZV, EBV pending, drug screen pending -CT scan of the abdomen pelvis with contrast liver unremarkable, gallbladder unremarkable, pancreas unremarkable, no biliary ductal dilatation -Right upper quadrant ultrasound shows hepatomegaly with diffuse fatty infiltration -Patient does have hypotensive episodes during dialysis, -Ischemic hepatitis likely secondary to sepsis, and hypotensive episodes during dialysis Plan: -Goal is to minimize hypotension -Minimize low blood pressures during dialysis -I have stopped all blood pressure medications -Continue to trend LFTs Status: Acute Additional A&P Information Dvt ppx: Heparin Patient is a DNR/DNI Dispo: Likely requires usp facility placement, IV antibiotics for at least 6 weeks, likely discharge Saturday Plan for today, continue physical therapy continue antibiotics, dialysis on Saturday, will do bilateral extremity ultrasounds. Due to persistent fevers, CT of the head due to confusion Attestations Medical Necessity Statement*: Patient requires hospitalization for vertebral osteomyelitis, renal failure, ischemic hepatitis, awaiting group home placement Coding Level of Care Code Acute Scanning Manager for Chg Fwd Diagnoses Vertebral osteomyelitis M46.20 Acute renal failure N17.9 RLL pneumonia J18.9 Hypertension I10 Diastolic CHF I50.30 Gout M10.9 Bilateral lower extremity edema R60.0 Morbid obesity with BMI of 60.0-69.9, adult E66.01; Z68.44 Difficulty in walking R26.2 Bilateral primary osteoarthritis of hip M16.0 HLD (hyperlipidemia) E78.5 Unable to ambulate R26.2 Intractable pain R52 Sepsis A41.9 DRESS syndrome D72.12; T50.905A Encephalopathy G93.40 Rhabdomyolysis M62.82 Hyperuricemia E79.0 Transaminitis R74.01 Ischemic hepatitis K75.9
[2020-08-22 15:25] LABS: Erythrocyte Sedimentation Rate 112 mm/hr (0-10)
[2020-08-22 15:58] LABS: Ammonia 11 umol/L (16-60)
[2020-08-22 16:38] LABS: ANA SCREEN, IFA NEGATIVE (NEGATIVE)
[2020-08-22 18:08] LABS: Glucose Point of Care 126 mg/dL (70-110)
[2020-08-22 20:15] LABS: Glucose Point of Care 122 mg/dL (70-110)
[2020-08-22 21:57] LABS: Glucose Point of Care 114 mg/dL (70-110)
[2020-08-23] VITALS (14 sets, daily range): BP systolic 110–136; BP diastolic 66–74; PULSE 90–108; RESP 14–18; TEMP 36.3–36.8; O2SAT 93–96
[2020-08-23 00:33] LABS: DNA AB (DS) CRITHIDIA,IFA NEGATIVE (NEGATIVE)
[2020-08-23 04:34] LABS: ABG PCO2 34.5 mmHg (35-45); ABG PH Result 7.46 (7.35-7.45); Base Excess ABG 1.2 mmol/L (-2.0-2.0); Blood Gas Allen Test Pos; Blood Gas Sample Site Radial, left; Blood Gas Sample Type Arterial; HCO3 ABG 24.7 mmol/L (22-26); Oxygen Device ROOM AIR; PO2 ABG 65.6 mmHg (80.0-100.0)
[2020-08-23 05:35] LABS: Basophils # 0.1 10^3/uL (0.0-0.1); Basophils % 0.3 %; Eosinophils # 0.2 10^3/uL (0.0-0.8); Eosinophils % 0.9 %; Hemoglobin 10.3 g/dL (11.7-16.6); Lymphocytes # 1.3 10^3/uL (0.8-4.8); Lymphocytes % 6.3 %; Mean Corpuscular HGB Conc 31.2 g/dL (30.0-36.0); Mean Corpuscular Hemoglobin 27.9 pg (28.0-34.0); Mean Corpuscular Volume 89.4 fL (80-94); Mean Platelet Volume 11.6 fL (7.4-10.4); Monocytes # 1.8 10^3/uL (0.2-0.9); Monocytes % 8.6 %; Neutrophils % 81.2 %; Nucleated Red Blood Cells % 0 %; Platelet Count 386 10^3/cmm (130-400); Red Blood Count 3.69 10^6/uL (4.1-5.3); Red Cell Distribution Width 16.2 % (12.1-15.1); White Blood Count 20.5 10^3/uL (4.0-10.0)
[2020-08-23 05:54] LABS: INR 1.23 (0.8-1.2)
[2020-08-23 06:02] LABS: Lactate (Lactic Acid level) 1.5 mmol/L (0.5-2.2)
[2020-08-23] MEDS: heparin 5,000 unit/mL INJ 1 mL 5000 UNIT SUBCUT ×2 (06:06→17:56)
[2020-08-23] MEDS: linezolid premix 600 MG/300 ML PREMIX 300 MG IV ×2 (06:09→17:56)
[2020-08-23 06:12] LABS: C Reactive Protein 321.9 mg/L (0.0-4.9)
[2020-08-23 06:16] LABS: Alanine Aminotransferase 319 U/L (0-41); Albumin Level 2.7 g/dL (3.5-5.2); Alkaline Phosphatase 171 IU/L (40-130); Anion Gap 22.5 (5-19); Aspartate Amino Transferase 71 U/L (0-40); Blood Urea Nitrogen 72 mg/dL (8-23); Calcium 9.1 mg/dL (8.5-10.5); Carbon Dioxide 22 mmol/L (22-29); Chloride 94 mmol/L (98-107); Creatine Phosphokinase 116 U/L (39-308); Globulin 3.2 g/dL (1.3-4.6); Glomerular Filtration Rate 11.9 mL/min (90-130); Glucose 109 mg/dL (65-115); Magnesium 2.1 mg/dL (1.7-2.3); NT Pro B Type Natriuretic Pept 338 pg/mL (0-125); Osmolality Calculated 300 mOsm/kg (285-295); Potassium 4.5 mmol/L (3.5-5.1); Sodium 134 mmol/L (136-145); Total Bilirubin 0.8 mg/dL (0.15-1.2); Total Protein 5.9 g/dL (6.6-8.7); Uric Acid 10.6 mg/dL (3.4-7.0)
--- NOTE | 2020-08-23 06:57 | PM.PN ---
Subjective Subjective: Interval history: depressed, weak. denies n/v/sob/cp/cough Medications: Reviewed: Yes Medication Review Details: Current Medications Acetaminophen (Acetaminophen 325 Mg Tablet) 650 mg PO Q6H PRN PRN Reason: MILD PAIN Last Admin: 08/20/20 20:53 Dose: 650 mg Documented by: Hydrocodone Bitart/Acetaminophen (Hydrocodone-Acetaminophen 5-325 Mg Tablet) 1 - 2 tab PO Q6H PRN PRN Reason: MODERATE TO SEVERE PAIN Last Admin: 08/18/20 18:05 Dose: 2 tab Documented by: Bisacodyl (Bisacodyl 5 Mg Tablet) 10 mg PO DAILY PRN PRN Reason: CONSTIPATION Ciprofloxacin HCl (Ciprofloxacin 500 Mg Tablet) 250 mg PO DAILY [facility]; Protocol Last Admin: 08/22/20 09:34 Dose: 250 mg Documented by: Dextrose (Dextrose 50% Syringe 50 Ml) 25 ml IVP ONCE PRN; Protocol PRN Reason: hypoglycemia protocol Dextrose (Dextrose 50% Syringe 50 Ml) 50 ml IVP PRN PRN; Protocol PRN Reason: hypoglycemia protocol Dextrose (Dextrose 50% Syringe 50 Ml) 25 ml IVP ONCE PRN; Protocol PRN Reason: hypoglycemia protocol Dextrose (Dextrose 50% Syringe 50 Ml) 50 ml IVP PRN PRN; Protocol PRN Reason: hypoglycemia protocol Fluoxetine HCl (Fluoxetine 20 Mg Capsule) 20 mg PO DAILY [facility] Furosemide (Furosemide 10 Mg/Ml Sdv 4ml) 40 mg IVP Q12H INA Last Admin: 08/22/20 19:46 Dose: 40 mg Documented by: Glucagon (Glucagon 1 Mg/Ml Inj 1 Ml) 1 mg IM ONCE PRN; Protocol PRN Reason: Adult Acute Hypoglycemia Prot. Glucagon (Glucagon 1 Mg/Ml Inj 1 Ml) 1 mg IM ONCE PRN; Protocol PRN Reason: Adult Acute Hypoglycemia Prot. Haloperidol Lactate (Haloperidol Inj 5 Mg/Ml Inj 1 Ml) 1 mg IM Q4H PRN PRN Reason: AGITATION Heparin Sodium (Beef Lung) (Heparin 5,000 Unit/Ml Inj 1 Ml) 5,000 unit SUBCUT Q12H [facility] Last Admin: 08/23/20 06:06 Dose: 5,000 unit Documented by: Linezolid (Zyvox Premix) 600 mg in 300 mls @ 300 mls/hr IV Q12H [facility]; Protocol Last Admin: 08/23/20 06:09 Dose: 300 mls/hr Documented by: Dextrose (D5w) 500 mls @ 100 mls/hr IV ONCE PRN; Protocol PRN Reason: Adult Acute Hypoglycemia Prot Dextrose (D5w) 500 mls @ 100 mls/hr IV ONCE PRN; Protocol PRN Reason: Adult Acute Hypoglycemia Prot Albumin Human (Albumin) 12.5 gm in 50 mls @ 60 mls/hr IV PRN PRN PRN Reason: Hypotension and/or symptomatic Last Infusion: 08/15/20 18:09 Dose: Infused Documented by: Albumin Human (Albumin) 12.5 gm in 50 mls @ 60 mls/hr IV PRN PRN PRN Reason: Hypotension and/or symptomatic Insulin Aspart (Insulin Aspart 100 Unit/1 Ml) 0 unit SUBCUT TIDWM [facility]; Protocol Last Admin: 08/22/20 18:19 Dose: Not Given Documented by: Ondansetron HCl (Ondansetron 2 Mg/Ml Sdv 2 Ml) 4 mg IVP Q8H PRN PRN Reason: vomiting, or N/V if npo Pantoprazole Sodium (Pantoprazole Dr 40 Mg Tablet) 40 mg PO DAILY [facility] Last Admin: 08/22/20 09:34 Dose: 40 mg Documented by: Sevelamer Carbonate (Sevelamer 800 Mg Tablet) 2,400 mg PO TIDWM [facility] Last Admin: 08/22/20 18:37 Dose: Not Given Documented by: Vitals/I&O/Wt Last Vital Signs Temp 98.2 F 08/23/20 05:33 Pulse 104 H 08/23/20 05:33 Resp 18 08/23/20 05:33 BP 118/68 08/23/20 05:33 Pulse Ox 95 08/23/20 05:33 08/22/20 08/22/20 08/23/20 14:59 22:59 06:59 Intake Total 240 / 240 480 / 720 Output Total 800 / 800 301 / 1101 Balance 240 / 240 -320 / -80 -301 / -381 Physical Exam Narrative: EXAM NARRATIVE: obese man in bed, comfortable, NARD VS noted heent- nc/at, eomi neck no jvp lungs- good air movement b/l Rt ACW dialysis catheter heart reg,no rub abd soft, nt, nd, +BS + vera ext b/l edema neuro- moves, a,a, o x 3 ACW dialysis catheter Urinary Catheter Management^: Vera: Cath Placed During This Visit: yes, but has since been removed by the nurse Reason for Continuing Indwelling Catheter: Accurate Measurement of Urinary Output in Critically Ill Patients Urinary Catheter Date of Insertion: 08/05/20 Urinary Catheter Time of Insertion: 15:00 Date Urinary Catheter Removed: 08/09/20 Time Urinary Catheter Discontinued: 05:45 Data : 08/23/20 05:23 08/23/20 05:23 Micro: Microbiology 08/20/20 18:40 Blood Culture - Preliminary Blood NEGATIVE TO DATE 08/20/20 05:52 Blood Culture - Preliminary Blood NEGATIVE TO DATE A&P Additional A&P Information 1. MAGGIE - likely infection mediated ATN/ Staph super infection PIGN - good uop -cr rising -hold lasix and HD. if cr continues to rise, then will need HD -if sob- lasix or HD -has an ACW dialyssi catheter 2. Vertebral osteomyelitis - on Zyvox/Cipro - Mgmt per primary team -wbc continues to inc RRL pna still w/ wbc 20 3. Lytes - hyponatremia- from renal failure hyperphosphatemia- on binder therapy, improving -hyperuricemia- on allopurinol 4. inc lfts improving 5. ck improved to 116 6. BP controlled 7. diastolic dysfunction- monitor 8. morbid obesity Exam and interview performed with aid of bedside RN using telemedicine Attestations Medical Necessity Statement*: MAGGIE, PNA Time Spent in Patient Care: 16 - 35 minutes Coding Level of Care Code Acute Craniologist for Corrie Ordonez
[2020-08-23 07:02] LABS: Glucose Point of Care 119 mg/dL (70-110)
[2020-08-23] MEDS: sevelamer 800 mg Tablet 2400 MG PO ×3 (09:27→17:56)
[2020-08-23] MEDS: pantoprazole DR 40 mg Tablet PO (09:28)
[2020-08-23] MEDS: ciprofloxacin 500 mg Tablet 250 MG PO (09:28)
[2020-08-23] MEDS: fluoxetine 20 mg Capsule PO (09:28)
[2020-08-23] MEDS: methylphenidate 10 mg Tablet 5 MG PO ×2 (09:56→17:56)
[2020-08-23] MEDS: sodium chloride 0.9% 1,000 ML 75 ML IV (09:56)
[2020-08-23] MEDS: predniSONE 20 mg Tablet 80 MG PO (09:56)
--- NOTE | 2020-08-23 10:00 | PC.SOCIAL ---
IMM Update Pg.2 of IMM updated and reviewed with patient who verbalized understanding. Copy provided.
[2020-08-23 11:02] LABS: Add Urine Microscopic? YES; Bilirubin Urine Neg (Negative); Blood Urine 3+ (Negative); Glucose Urine UA Norm (Normal); Ketones Urine Negative (Negative); Leukocyte Esterase Urine 1+ (Negative); Nitrate Urine Negative (Negative); Protein Urine 2+ (Negative); Specific Gravity, Urine 1.015 (1.005-1.030); Urine Appearance SL Hazy (CLEAR); Urine Color Yellow (Yellow); Urobilinogen Urine Norm (Negative)
[2020-08-23 11:04] LABS: Glucose Point of Care 115 mg/dL (70-110)
--- NOTE | 2020-08-23 11:30 | PM.PN ---
Subjective Subjective: Interval history: This morning patient was examined, he is a bit frustrated with the nursing staff, he tells me that that they were a bit rude to him, I advised patient that he really needs to get up and move with the nurses and physical therapy staff, he is going to be in pain, I will do my best to moderate his pain, but he has not gotten up out of the bed for the last 2 weeks, clinically he is doing better, we are working towards getting him over to a alf, but this will be difficult if he will not participate in physical therapy, still has complaints of depression, Medications: Medication Review Details: Current Medications Acetaminophen (Acetaminophen 325 Mg Tablet) 650 mg PO Q6H PRN PRN Reason: MILD PAIN Last Admin: 08/20/20 20:53 Dose: 650 mg Documented by: Hydrocodone Bitart/Acetaminophen (Hydrocodone-Acetaminophen 5-325 Mg Tablet) 1 - 2 tab PO Q6H PRN PRN Reason: MODERATE TO SEVERE PAIN Last Admin: 08/18/20 18:05 Dose: 2 tab Documented by: Bisacodyl (Bisacodyl 5 Mg Tablet) 10 mg PO DAILY PRN PRN Reason: CONSTIPATION Ciprofloxacin HCl (Ciprofloxacin 500 Mg Tablet) 250 mg PO DAILY [facility]; Protocol Last Admin: 08/22/20 09:34 Dose: 250 mg Documented by: Dextrose (Dextrose 50% Syringe 50 Ml) 25 ml IVP ONCE PRN; Protocol PRN Reason: hypoglycemia protocol Dextrose (Dextrose 50% Syringe 50 Ml) 50 ml IVP PRN PRN; Protocol PRN Reason: hypoglycemia protocol Dextrose (Dextrose 50% Syringe 50 Ml) 25 ml IVP ONCE PRN; Protocol PRN Reason: hypoglycemia protocol Dextrose (Dextrose 50% Syringe 50 Ml) 50 ml IVP PRN PRN; Protocol PRN Reason: hypoglycemia protocol Fluoxetine HCl (Fluoxetine 20 Mg Capsule) 20 mg PO DAILY INA Furosemide (Furosemide 10 Mg/Ml Sdv 4ml) 40 mg IVP Q12H [facility]NA Last Admin: 08/22/20 19:46 Dose: 40 mg Documented by: Glucagon (Glucagon 1 Mg/Ml Inj 1 Ml) 1 mg IM ONCE PRN; Protocol PRN Reason: Adult Acute Hypoglycemia Prot. Glucagon (Glucagon 1 Mg/Ml Inj 1 Ml) 1 mg IM ONCE PRN; Protocol PRN Reason: Adult Acute Hypoglycemia Prot. Haloperidol Lactate (Haloperidol Inj 5 Mg/Ml Inj 1 Ml) 1 mg IM Q4H PRN PRN Reason: AGITATION Heparin Sodium (Beef Lung) (Heparin 5,000 Unit/Ml Inj 1 Ml) 5,000 unit SUBCUT Q12H [facility] Last Admin: 08/23/20 06:06 Dose: 5,000 unit Documented by: Linezolid (Zyvox Premix) 600 mg in 300 mls @ 300 mls/hr IV Q12H [facility]; Protocol Last Admin: 08/23/20 06:09 Dose: 300 mls/hr Documented by: Dextrose (D5w) 500 mls @ 100 mls/hr IV ONCE PRN; Protocol PRN Reason: Adult Acute Hypoglycemia Prot Dextrose (D5w) 500 mls @ 100 mls/hr IV ONCE PRN; Protocol PRN Reason: Adult Acute Hypoglycemia Prot Albumin Human (Albumin) 12.5 gm in 50 mls @ 60 mls/hr IV PRN PRN PRN Reason: Hypotension and/or symptomatic Last Infusion: 08/15/20 18:09 Dose: Infused Documented by: Albumin Human (Albumin) 12.5 gm in 50 mls @ 60 mls/hr IV PRN PRN PRN Reason: Hypotension and/or symptomatic Insulin Aspart (Insulin Aspart 100 Unit/1 Ml) 0 unit SUBCUT TIDWM [facility]; Protocol Last Admin: 08/22/20 18:19 Dose: Not Given Documented by: Ondansetron HCl (Ondansetron 2 Mg/Ml Sdv 2 Ml) 4 mg IVP Q8H PRN PRN Reason: vomiting, or N/V if npo Pantoprazole Sodium (Pantoprazole Dr 40 Mg Tablet) 40 mg PO DAILY [facility] Last Admin: 08/22/20 09:34 Dose: 40 mg Documented by: Sevelamer Carbonate (Sevelamer 800 Mg Tablet) 2,400 mg PO TIDWM [facility] Last Admin: 08/22/20 18:37 Dose: Not Given Documented by: Vitals/I&O/Wt Last Vital Signs Temp 97.3 F L 08/23/20 11:14 Pulse 99 08/23/20 11:14 Resp 17 08/23/20 11:14 BP 110/68 08/23/20 11:14 Pulse Ox 93 08/23/20 11:14 08/22/20 08/23/20 08/23/20 22:59 06:59 14:59 Intake Total 480 / 720 200 / 200 Output Total 800 / 800 301 / 1101 200 / 200 Balance -320 / -80 -301 / -381 0 / 0 Physical Exam Narrative: EXAM NARRATIVE: Morbidly obese male Large pannus Const: COMMON NORMALS: no acute distress NUTRITIONAL APPEARANCE: obese ORIENTATION/CONSCIOUSNESS: Yes awake, Yes oriented to person and Yes oriented to place; not oriented to time HENMT: COMMON NORMALS: normocephalic HEAD & SCALP: normocephalic Eye: COMMON NORMALS: Equal, round and reactive pupils present and EOMs intact bilaterally GENERAL EYE: appearance normal, both eyes and all related structures PUPIL: Yes Equal, round and reactive pupils present Neck/C-Spine: COMMON NORMALS: full ROM, no lymphadenopathy, no JVD and Thyroid normal THYROID: Thyroid normal Lymph: LYMPHATIC: no lymphadenopathy noted Chest: OTHER: Right chest, dialysis catheter in place Resp: COMMON NORMALS: normal respiratory effort, No retractions, No use of accessory muscles and clear to auscultation bilaterally AUSCULTATION: clear to auscultation bilaterally Cardio: COMMON NORMALS: no JVD, regular rate, regular rhythm, S1 normal heart sound present, S2 normal heart sound present, No gallops present (Cardio), No clicks present (Cardio) and No murmurs present (Cardio) RATE: regular rate RHYTHM: regular rhythm HEART SOUNDS: S1 normal heart sound present and S2 normal heart sound present GI: COMMON NORMALS: Normal to inspection, nondistended, normoactive bowel sounds present, Soft to palpation, non-tender, No hepatosplenomegaly present, no masses and no bruits PALPATION: Yes Soft to palpation and Yes No hepatosplenomegaly present Extremity: COMMON NORMALS: normal to inspection, full ROM, capillary refill normal, no clubbing, cyanosis or edema, no calf tenderness and no pedal edema Neuro: COMMON NORMALS: CN's II-XII intact bilaterally, moves all extremities and no focal motor deficits SENSORIUM/ORIENTATION: Yes oriented to person, Yes oriented to place and No oriented to time Psych: COMMON NORMALS: mental status grossly normal, Normal thought process present and cooperative THOUGHT PROCESS: Normal thought process present Skin: NARRATIVE SKIN EXAM: Right chest, dialysis catheter in place, no surrounding erythema, swelling, tenderness Urinary Catheter Management^: Flowers: Cath Placed During This Visit: yes, but has since been removed by the nurse Reason for Continuing Indwelling Catheter: Accurate Measurement of Urinary Output in Critically Ill Patients Urinary Catheter Date of Insertion: 08/05/20 Urinary Catheter Time of Insertion: 15:00 Date Urinary Catheter Removed: 08/09/20 Time Urinary Catheter Discontinued: 05:45 Data : 08/23/20 05:23 08/23/20 05:23 Micro: Microbiology 08/20/20 18:40 Blood Culture - Preliminary Blood NEGATIVE TO DATE 08/20/20 05:52 Blood Culture - Preliminary Blood NEGATIVE TO DATE A&P Assessment and plan (1) Vertebral osteomyelitis: -With sepsis -CT of abdomen pelvis shows:Lytic changes in the L3 and L4 vertebral bodies without adjacent inflammation. Indolent vertebral body osteomyelitis, metastatic disease or degenerative cystic changes in the vertebral bodies. -CT-of the cervical spine does not show any significant osteomyelitis -I went over CT scan findings with Dr. Cuellar, she feels that changes in vertebral bodies are likely related to osteomyelitis -Unfortunately patient cannot have a MRI given his body habitus -Unfortunately cannot perform a tagged white blood cell scan as he cannot fit in the machine -Unfortunate patient cannot have a CT-guided biopsy, due to his body habitus, difficulty accessing site -White blood cell count 20.5, ESR greater than 112 -This is certainly a mixed picture, sepsis findings, given transaminitis, acute renal failure -Blood pressure normotensive, afebrile, saturating in the high 90s on room air -Lactic acid within normal limits -Inflammatory markers improving -Persistent leukocytosis, neutrophilic likely secondary to prednisone, but will speak to infectious disease -Had low-grade fever have resolved right-sided chest warmth and redness complaints, I cannot see any chest warmth or redness Plan: -Continue neurochecks -Continue bariatric bed -Needs to get up out of bed into bariatric chair -Placed on broad-spectrum antibiotic therapy Zyvox and the descalated to Cipro -Follow blood cultures, repeated blood cultures after low-grade fevers, certainly dialysis catheter infection is a possibility, we will continue to monitor -We will discuss with infectious disease, okay with Zyvox and Cipro -Monitor clinical progress -DNR/DNI -Heparin for DVT prophylaxis -Patient was updated -Discussed with PT OT, to do physical therapy in bariatric chair Status: Acute (2) Acute renal failure: -Etiology multifactorial's rhabdomyolysis and/or sepsis and or drug reaction and/or dress syndrome -Has not received any NSAIDs, is on lisinopril hydrochlorthiazide which has been held -Was on Lasix therapy -He does have a allergy to cephalexin, allergy unknown, patient is unsure what the allergy is, could he possibly have dress syndrome, however does not have significant eosinophilia on CBC -We will hold allopurinol as associate with dress syndrome,, Denis Diogo syndrome -CPK and uric acid are trending down -CT scan of the abdomen pelvis does not show any significant obstructive uropathy, or kidney stone, but it was a difficult study -Urine output 1300 cc -Mild acidosis, hyponatremia, hyperkalemia, uremia, hypocalcemia, elevated phosphorus, elevated magnesium, anasarca Plan: -Right tunneled dialysis catheter in place, placed by Dr. Chino -Nephrology on consult -Urine studies no eosinophils seen -Peripheral smear toxic granulations, no eosinophils -Trend CPK and uric acids, improving -Urine output remains minimal, but improving -Dialysis catheter placement placement to right femoral vein -On Renvela, sodium bicarb -Nephrology consult, possible dialysis tomorrow -We will try some IV fluids today, as creatinine is upward trending Status: Acute (3) RLL pneumonia: Initially on chest x-ray patient was noted to have right lower lobe pneumonia for which she received treatment with ceftriaxone and azithromycin. Currently on Zyvox and Cipro CT chest negative for consolidative process, afebrile, on room air Status: Acute (4) Hypertension: -Hold Norvasc to 10 mg daily -Discontinue lisinopril given creatinine increase This is currently well controlled Status: Inactive (5) Diastolic CHF: -Cardiac echocardiogram shows EF of 55%, no regional wall motion abnormalities, poor quality study -d/c lasix , monitor urine output closely, Flowers catheter Status: Acute (6) Gout: Continue allopurinol Status: Acute (7) Bilateral lower extremity edema: Minimal today Status: Acute (8) Morbid obesity with BMI of 60.0-69.9, adult: Needs to follow-up with bariatric clinic, needs to be motivated to lose weight Status: Acute (9) Difficulty in walking: PT OT, however states unable to participate due to weakness Status: Acute (10) Bilateral primary osteoarthritis of hip: PT OT, pain control Status: Acute (11) HLD (hyperlipidemia): Continue simvastatin Status: Acute (12) Unable to ambulate: PT OT Status: Acute (13) Intractable pain: -Has some calf pain bilaterally, lower extremity Doppler negative for DVT Status: Acute (14) Sepsis: Status: Acute (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 -From allopurinol versus ceftriaxone -With transaminitis, acute renal failure, multiorgan dysfunction, I cannot see a rash -We will resume prednisone Status: Acute (16) Encephalopathy: -Continues to have some episodes of confusion, alert to person, place, not to time, follows all commands, cranial nerves II to XII grossly intact -ABG did not show any significant hypoxia or hypercarbia -Continue BiPAP overnight -Unlikely to be meningitis, no neck pain, no neck stiffness -Neurochecks -Patient does have significant uremia, resolved -Septic encephalopathy, resolved -We will continue to monitor -Alert oriented x3, refuses CT scan, will hold off, no focal neurologic deficits Status: Acute (17) Rhabdomyolysis: -Etiology of rhabdomyolysis is uncertain, patient has been immobile, in bed, been laying on his back, area vertebral osteomyelitis as a possible etiology -Certainly compartment syndrome could be an etiology, but unlikely - CT of his pelvis did show severe left hip osteoarthritis, no significant evidence of compartment syndrome Status: Acute (18) Hyperuricemia: Status: Acute (19) Transaminitis: Worsening today Plan: -GGT, LDH, LFTs -We will continue to monitor closely Status: Acute (20) Ischemic hepatitis: -LFTs have stabilized -Alk phos 184 -Ammonia 26 -INR 1.20 -GGT 330 -Total bili 0.8 -Acute hepatitis panel negative, HIV panel negative -Tylenol level negative -LOUIE, CMV, VZV, EBV pending, drug screen pending -CT scan of the abdomen pelvis with contrast liver unremarkable, gallbladder unremarkable, pancreas unremarkable, no biliary ductal dilatation -Right upper quadrant ultrasound shows hepatomegaly with diffuse fatty infiltration -Patient does have hypotensive episodes during dialysis, -Ischemic hepatitis likely secondary to sepsis, and hypotensive episodes during dialysis Plan: -Goal is to minimize hypotension -Minimize low blood pressures during dialysis -I have stopped all blood pressure medications -Continue to trend LFTs Status: Acute (21) Depression: -Continue Prozac -We will try some Ritalin 5 mg twice daily, to stimulate him a bit, monitor heart rates Status: Acute (22) Generalized weakness: -I did discuss the case with rheumatology, to evaluate for possible polymyalgia rheumatica, polymyositis, however they feel it is fairly unlikely as patient's symptoms are much more diffuse rather than focal, not concentrating on particular muscle groups Status: Acute Additional A&P Information Dvt ppx: Heparin Patient is a DNR/DNI Dispo: Likely requires senior care facility placement, IV antibiotics for at least 6 weeks, likely discharge Saturday Plan for today, continue physical therapy continue antibiotics, dialysis on Saturday, will do bilateral extremity ultrasounds. 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
[2020-08-23 11:40] LABS: Add Urine Culture? Yes; Amorphous Sediment Urine 1+ /hpf; Bacteria Urine 1+ /hpf; Hyaline Casts Urine 0-4 /lpf; WBC Urine 15-25 /hpf (0-5)
--- NOTE | 2020-08-23 13:55 | PC.NURSE ---
Patient continues to refuse turn and reposition. discussed encouragement and importance of repositioned, patient waving hand at this nurse saying no.
--- NOTE | 2020-08-23 14:43 | PC.NURSE ---
Patient agreed to a reposition, repositioned with pillows placed, to left side, reports it hurts in my toes during reposition after finished patient denies further pain.
[2020-08-23 17:06] LABS: Glucose Point of Care 132 mg/dL (70-110)
[2020-08-23 20:15] LABS: Glucose Point of Care 223 mg/dL (70-110)
[2020-08-24] VITALS (13 sets, daily range): BP systolic 121–155; BP diastolic 64–78; PULSE 83–97; RESP 16–20; TEMP 35.9–37.2; O2SAT 92–97
[2020-08-24] MEDS: sodium chloride 0.9% 1,000 ML 75 ML IV (02:28)
[2020-08-24 04:39] LABS: ABG PCO2 35.5 mmHg (35-45); ABG PH Result 7.46 (7.35-7.45); Arterial Blood Gas Hematocrit 39.5 % (42-52); Base Excess ABG 1.5 mmol/L (-2.0-2.0); Blood Gas Allen Test Pos; Blood Gas Sample Site Radial, right; Blood Gas Sample Type Arterial; HCO3 ABG 25.1 mmol/L (22-26); PO2 ABG 80.9 mmHg (80.0-100.0)
[2020-08-24] MEDS: heparin 5,000 unit/mL INJ 1 mL 5000 UNIT SUBCUT ×2 (05:12→17:30)
[2020-08-24] MEDS: linezolid premix 600 MG/300 ML PREMIX 300 MG IV (05:13)
[2020-08-24 05:45] LABS: Basophils % 0.2 %; Eosinophils % 0.1 %; Hematocrit 30.9 % (42.0-52.0); Hemoglobin 9.2 g/dL (11.7-16.6); Lymphocytes # 0.9 10^3/uL (0.8-4.8); Mean Corpuscular HGB Conc 29.8 g/dL (30.0-36.0); Mean Corpuscular Volume 93.9 fL (80-94); Monocytes # 1.3 10^3/uL (0.2-0.9); Monocytes % 7.8 %; Neutrophils # 14.57 10^3/uL (1.8-7.7); Neutrophils % 84.6 %; Nucleated Red Blood Cells % 0 %; Platelet Count 305 10^3/cmm (130-400); Red Blood Count 3.29 10^6/uL (4.1-5.3); Red Cell Distribution Width 16.2 % (12.1-15.1); White Blood Count 17.2 10^3/uL (4.0-10.0)
[2020-08-24 05:58] LABS: INR 1.29 (0.8-1.2)
[2020-08-24 06:16] LABS: Glucose Point of Care 155 mg/dL (70-110)
[2020-08-24 06:25] LABS: Lactate (Lactic Acid level) 1.2 mmol/L (0.5-2.2)
[2020-08-24 06:30] LABS: C Reactive Protein 254.6 mg/L (0.0-4.9)
[2020-08-24 06:32] LABS: Alanine Aminotransferase 198 U/L (0-41); Albumin Level 2.1 g/dL (3.5-5.2); Alkaline Phosphatase 154 IU/L (40-130); Anion Gap 20.2 (5-19); Aspartate Amino Transferase 40 U/L (0-40); Blood Urea Nitrogen 76 mg/dL (8-23); Calcium 8.6 mg/dL (8.5-10.5); Carbon Dioxide 20 mmol/L (22-29); Chloride 96 mmol/L (98-107); Creatine Phosphokinase 74 U/L (39-308); Globulin 3.7 g/dL (1.3-4.6); Glomerular Filtration Rate 13.9 mL/min (90-130); Glucose 129 mg/dL (65-115); Magnesium 2.3 mg/dL (1.7-2.3); NT Pro B Type Natriuretic Pept 665 pg/mL (0-125); Osmolality Calculated 298 mOsm/kg (285-295); Potassium 4.2 mmol/L (3.5-5.1); Sodium 132 mmol/L (136-145); Total Bilirubin 0.6 mg/dL (0.15-1.2); Total Protein 5.8 g/dL (6.6-8.7)
--- NOTE | 2020-08-24 07:19 | P.PN_ITS ---
Subjective Subjective: Interval history: feels better. denies sob. + weak, chronic lege edema Medications: Reviewed: Yes Medication Review Details: Current Medications Acetaminophen (Acetaminophen 325 Mg Tablet) 650 mg PO Q6H PRN PRN Reason: MILD PAIN Last Admin: 08/20/20 20:53 Dose: 650 mg Documented by: Bisacodyl (Bisacodyl 5 Mg Tablet) 10 mg PO DAILY PRN PRN Reason: CONSTIPATION Ciprofloxacin HCl (Ciprofloxacin 500 Mg Tablet) 250 mg PO DAILY [facility]; Protocol Last Admin: 08/23/20 09:28 Dose: 250 mg Documented by: Dextrose (Dextrose 50% Syringe 50 Ml) 25 ml IVP ONCE PRN; Protocol PRN Reason: hypoglycemia protocol Dextrose (Dextrose 50% Syringe 50 Ml) 50 ml IVP PRN PRN; Protocol PRN Reason: hypoglycemia protocol Dextrose (Dextrose 50% Syringe 50 Ml) 25 ml IVP ONCE PRN; Protocol PRN Reason: hypoglycemia protocol Dextrose (Dextrose 50% Syringe 50 Ml) 50 ml IVP PRN PRN; Protocol PRN Reason: hypoglycemia protocol Fluoxetine HCl (Fluoxetine 20 Mg Capsule) 20 mg PO DAILY [facility] Last Admin: 08/23/20 09:28 Dose: 20 mg Documented by: Glucagon (Glucagon 1 Mg/Ml Inj 1 Ml) 1 mg IM ONCE PRN; Protocol PRN Reason: Adult Acute Hypoglycemia Prot. Glucagon (Glucagon 1 Mg/Ml Inj 1 Ml) 1 mg IM ONCE PRN; Protocol PRN Reason: Adult Acute Hypoglycemia Prot. Haloperidol Lactate (Haloperidol Inj 5 Mg/Ml Inj 1 Ml) 1 mg IM Q4H PRN PRN Reason: AGITATION Heparin Sodium (Beef Lung) (Heparin 5,000 Unit/Ml Inj 1 Ml) 5,000 unit SUBCUT Q12H [facility] Last Admin: 08/24/20 05:12 Dose: 5,000 unit Documented by: Linezolid (Zyvox Premix) 600 mg in 300 mls @ 300 mls/hr IV Q12H [facility]; Protocol Last Admin: 08/24/20 05:13 Dose: 300 mls/hr Documented by: Dextrose (D5w) 500 mls @ 100 mls/hr IV ONCE PRN; Protocol PRN Reason: Adult Acute Hypoglycemia Prot Dextrose (D5w) 500 mls @ 100 mls/hr IV ONCE PRN; Protocol PRN Reason: Adult Acute Hypoglycemia Prot Albumin Human (Albumin) 12.5 gm in 50 mls @ 60 mls/hr IV PRN PRN PRN Reason: Hypotension and/or symptomatic Last Infusion: 08/15/20 18:09 Dose: Infused Documented by: Albumin Human (Albumin) 12.5 gm in 50 mls @ 60 mls/hr IV PRN PRN PRN Reason: Hypotension and/or symptomatic Sodium Chloride (Sodium Chloride 0.9%) 1,000 mls @ 75 mls/hr IV .[id number] [facility] Last Admin: 08/24/20 02:28 Dose: 75 mls/hr Documented by: Insulin Aspart (Insulin Aspart 100 Unit/1 Ml) 0 unit SUBCUT TIDWM [facility]; Protocol Last Admin: 08/23/20 17:23 Dose: Not Given Documented by: Methylphenidate HCl (Methylphenidate 10 Mg Tablet) 5 mg PO BID [facility] Last Admin: 08/23/20 17:56 Dose: 5 mg Documented by: Ondansetron HCl (Ondansetron 2 Mg/Ml Sdv 2 Ml) 4 mg IVP Q8H PRN PRN Reason: vomiting, or N/V if npo Pantoprazole Sodium (Pantoprazole Dr 40 Mg Tablet) 40 mg PO DAILY [facility] Last Admin: 08/23/20 09:28 Dose: 40 mg Documented by: Prednisone (Prednisone 20 Mg Tablet) 80 mg PO DAILY [facility] Last Admin: 08/23/20 09:56 Dose: 80 mg Documented by: Sevelamer Carbonate (Sevelamer 800 Mg Tablet) 2,400 mg PO TIDWM [facility] Last Admin: 08/23/20 17:56 Dose: 2,400 mg Documented by: Vitals/I&O/Wt Last Vital Signs Temp 98.9 F 08/24/20 04:00 Pulse 89 08/24/20 04:00 Resp 18 08/24/20 04:00 BP 150/75 08/24/20 04:00 Pulse Ox 95 08/24/20 04:00 08/23/20 08/24/20 08/24/20 22:59 06:59 14:59 Intake Total 300 / 800 1000 / 1800 Output Total 300 / 650 350 / 1000 Balance 0 / 150 650 / 800 Physical Exam Narrative: EXAM NARRATIVE: obese man in bed, comfortable, NARD VS noted heent- nc/at, eomi neck no jvp lungs- good air movement b/l Rt ACW dialysis catheter heart reg,no rub abd soft, nt, nd, +BS + vera ext b/l edema neuro- moves, a,a, o x 3 ACW dialysis catheter Urinary Catheter Management^: Vera: Cath Placed During This Visit: yes, but has since been removed by the nurse Reason for Continuing Indwelling Catheter: Accurate Measurement of Urinary Output in Critically Ill Patients Urinary Catheter Date of Insertion: 08/05/20 Urinary Catheter Time of Insertion: 15:00 Date Urinary Catheter Removed: 08/09/20 Time Urinary Catheter Discontinued: 05:45 Data : 08/24/20 05:18 08/24/20 05:18 A&P Additional A&P Information 1. MAGGIE - likely infection mediated ATN/ Staph super infection PIGN - good uop -cr improved off of lasix -has an ACW dialysis catheter 2. Vertebral osteomyelitis - on Zyvox/Cipro - Mgmt per primary team -wbc continues to inc RRL pna wbc down to 17 3. Lytes - hyponatremia- from renal failure hyperphosphatemia- on binder therapy, improving -hyperuricemia- on allopurinol 4. inc lfts improving 5. ck improved to 116 6. BP mildly elevated 7. diastolic dysfunction- monitor clinically- can d/c ivf 8. morbid obesity 9. 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
--- NOTE | 2020-08-24 07:29 | PC.NURSE ---
Dr. Naylor in to see patient via telenephrology, discussed plan of care to continue management no dialysis for today. Lung sounds were clear bilaterally, pitting edema generalized over body, denies pain or needs at this time.
[2020-08-24] MEDS: methylphenidate 10 mg Tablet 5 MG PO ×2 (08:19→17:33)
[2020-08-24] MEDS: predniSONE 20 mg Tablet 80 MG PO (08:19)
[2020-08-24] MEDS: fluoxetine 20 mg Capsule PO (08:20)
[2020-08-24] MEDS: pantoprazole DR 40 mg Tablet PO ×2 (08:20→21:58)
[2020-08-24] MEDS: sevelamer 800 mg Tablet 2400 MG PO ×3 (08:20→17:30)
[2020-08-24] MEDS: ciprofloxacin 500 mg Tablet 250 MG PO (08:21)
--- NOTE | 2020-08-24 10:04 | PC.NURSE ---
Patient persistently refusing turns or using go lift to get up to chair, therapy in room with patient and nurse and patient continues to encourage patient. Patient states, I want to talk to the doctor, we need to have a word. Physician aware of patient actively refusing repositioning or use of go lift.
[2020-08-24 10:52] LABS: Glucose Point of Care 120 mg/dL (70-110)
--- NOTE | 2020-08-24 11:41 | PC.NURSE ---
patient repositioned and pillows placed, patient yelling out with reposition, PRN pain meds tylenol given, see MAR for further details. in room, requesting to talk to physician, notified by charge nurse Aparna.
[2020-08-24] MEDS: acetaminophen 325 mg Tablet 650 MG PO (12:29)
--- NOTE | 2020-08-24 12:29 | PM.PN ---
Subjective Subjective: Interval history: This morning patient was examined multiple times, including with his present, I had extensive discussion with patient about his vertebral osteomyelitis, his clinical improvement, about his rhabdo which is improving, his renal failure which is improving, liver failure which is improving the big issue that we are having is his motivation to work with physical therapy, get up into a chair, and to move with physical therapy. According and patient, 3 weeks ago he was able to ambulate in a wheelchair, get up out of the wheelchair, and have breakfast with his . Placing him to a intermediate is quite impossible if he is unwilling to participate in physical therapy. He is already been rejected by 13 nursing homes. And his is unable to take care of him at home, she is also usually in a wheelchair, using oxygen, as he remains bedbound, is 415 pounds, and is morbidly obese, and requires IV antibiotics, frequent monitoring of his kidney function. This is a very difficult situation, but if he continues to refuse physical therapy the only option we have is to send him home with IV antibiotics and home health care. But home health care does not mean physical therapy, does not need help with helped hurting him, or moving him I advised patient that he has a high risk of morbidity or mortality from prolonged immobility including DVTs, PEs, sacral ulcers, pneumonias, infections, UTIs, sepsis, septic shock etc. I had an extensive discussion with patient and [facility], and it came to final agreement the patient will work with physical therapy. If he continues to work with physical therapy, we can possibly get him to a intermediate. however if he refuses or is difficult then the only option that we have is to have him go home. Unfortunately this option does carry significant risk of morbidity and mortality in the near future, poor quality of life, high risk of , but this is the only option that is available to the patient if he is not willing to help himself. Patient is aware, voiced understanding, all questions answered. Medications: Reviewed: Yes Medication Review Details: Current Medications Acetaminophen (Acetaminophen 325 Mg Tablet) 650 mg PO Q6H PRN PRN Reason: MILD PAIN Last Admin: 08/20/20 20:53 Dose: 650 mg Documented by: Bisacodyl (Bisacodyl 5 Mg Tablet) 10 mg PO DAILY PRN PRN Reason: CONSTIPATION Ciprofloxacin HCl (Ciprofloxacin 500 Mg Tablet) 250 mg PO DAILY [facility]; Protocol Last Admin: 08/23/20 09:28 Dose: 250 mg Documented by: Dextrose (Dextrose 50% Syringe 50 Ml) 25 ml IVP ONCE PRN; Protocol PRN Reason: hypoglycemia protocol Dextrose (Dextrose 50% Syringe 50 Ml) 50 ml IVP PRN PRN; Protocol PRN Reason: hypoglycemia protocol Dextrose (Dextrose 50% Syringe 50 Ml) 25 ml IVP ONCE PRN; Protocol PRN Reason: hypoglycemia protocol Dextrose (Dextrose 50% Syringe 50 Ml) 50 ml IVP PRN PRN; Protocol PRN Reason: hypoglycemia protocol Fluoxetine HCl (Fluoxetine 20 Mg Capsule) 20 mg PO DAILY [facility] Last Admin: 08/23/20 09:28 Dose: 20 mg Documented by: Glucagon (Glucagon 1 Mg/Ml Inj 1 Ml) 1 mg IM ONCE PRN; Protocol PRN Reason: Adult Acute Hypoglycemia Prot. Glucagon (Glucagon 1 Mg/Ml Inj 1 Ml) 1 mg IM ONCE PRN; Protocol PRN Reason: Adult Acute Hypoglycemia Prot. Haloperidol Lactate (Haloperidol Inj 5 Mg/Ml Inj 1 Ml) 1 mg IM Q4H PRN PRN Reason: AGITATION Heparin Sodium (Beef Lung) (Heparin 5,000 Unit/Ml Inj 1 Ml) 5,000 unit SUBCUT Q12H [facility] Last Admin: 08/24/20 05:12 Dose: 5,000 unit Documented by: Linezolid (Zyvox Premix) 600 mg in 300 mls @ 300 mls/hr IV Q12H [facility]; Protocol Last Admin: 08/24/20 05:13 Dose: 300 mls/hr Documented by: Dextrose (D5w) 500 mls @ 100 mls/hr IV ONCE PRN; Protocol PRN Reason: Adult Acute Hypoglycemia Prot Dextrose (D5w) 500 mls @ 100 mls/hr IV ONCE PRN; Protocol PRN Reason: Adult Acute Hypoglycemia Prot Albumin Human (Albumin) 12.5 gm in 50 mls @ 60 mls/hr IV PRN PRN PRN Reason: Hypotension and/or symptomatic Last Infusion: 08/15/20 18:09 Dose: Infused Documented by: Albumin Human (Albumin) 12.5 gm in 50 mls @ 60 mls/hr IV PRN PRN PRN Reason: Hypotension and/or symptomatic Sodium Chloride (Sodium Chloride 0.9%) 1,000 mls @ 75 mls/hr IV .[id number] [facility] Last Admin: 08/24/20 02:28 Dose: 75 mls/hr Documented by: Insulin Aspart (Insulin Aspart 100 Unit/1 Ml) 0 unit SUBCUT TIDWM [facility]; Protocol Last Admin: 08/23/20 17:23 Dose: Not Given Documented by: Methylphenidate HCl (Methylphenidate 10 Mg Tablet) 5 mg PO BID [facility] Last Admin: 08/23/20 17:56 Dose: 5 mg Documented by: Ondansetron HCl (Ondansetron 2 Mg/Ml Sdv 2 Ml) 4 mg IVP Q8H PRN PRN Reason: vomiting, or N/V if npo Pantoprazole Sodium (Pantoprazole Dr 40 Mg Tablet) 40 mg PO DAILY [facility] Last Admin: 08/23/20 09:28 Dose: 40 mg Documented by: Prednisone (Prednisone 20 Mg Tablet) 80 mg PO DAILY [facility] Last Admin: 08/23/20 09:56 Dose: 80 mg Documented by: Sevelamer Carbonate (Sevelamer 800 Mg Tablet) 2,400 mg PO TIDWM [facility] Last Admin: 08/23/20 17:56 Dose: 2,400 mg Documented by: Vitals/I&O/Wt Last Vital Signs Temp 97.6 F 08/24/20 08:00 Pulse 83 08/24/20 09:55 Resp 16 08/24/20 08:00 BP 155/76 08/24/20 08:00 Pulse Ox 94 08/24/20 09:53 08/23/20 08/24/20 08/24/20 22:59 06:59 14:59 Intake Total 300 / 800 1000 / 1800 498.75 / 498.75 Output Total 300 / 650 350 / 1000 Balance 0 / 150 650 / 800 498.75 / 498.75 Physical Exam Narrative: EXAM NARRATIVE: Morbidly obese male Large pannus Const: COMMON NORMALS: no acute distress and patient oriented x3 HENMT: COMMON NORMALS: normocephalic HEAD & SCALP: normocephalic Neck/C-Spine: COMMON NORMALS: no JVD Chest: OTHER: Right chest, dialysis catheter in place Resp: COMMON NORMALS: normal respiratory effort, No retractions, No use of accessory muscles and clear to auscultation bilaterally AUSCULTATION: clear to auscultation bilaterally Cardio: COMMON NORMALS: no JVD, regular rate, regular rhythm, S1 normal heart sound present and S2 normal heart sound present RATE: regular rate RHYTHM: regular rhythm HEART SOUNDS: S1 normal heart sound present and S2 normal heart sound present GI: COMMON NORMALS: Normal to inspection, nondistended, normoactive bowel sounds present, Soft to palpation, non-tender, No hepatosplenomegaly present, no masses and no bruits PALPATION: Yes Soft to palpation and Yes No hepatosplenomegaly present Extremity: COMMON NORMALS: capillary refill normal, no clubbing, cyanosis or edema, no calf tenderness and no pedal edema Neuro: COMMON NORMALS: patient oriented x3 Psych: COMMON NORMALS: mental status grossly normal Skin: NARRATIVE SKIN EXAM: Right chest, dialysis catheter in place, no surrounding erythema, swelling, tenderness Urinary Catheter Management^: Flowers: Cath Placed During This Visit: yes, but has since been removed by the nurse Reason for Continuing Indwelling Catheter: Accurate Measurement of Urinary Output in Critically Ill Patients Urinary Catheter Date of Insertion: 08/05/20 Urinary Catheter Time of Insertion: 15:00 Date Urinary Catheter Removed: 08/09/20 Time Urinary Catheter Discontinued: 05:45 Data : 08/24/20 05:18 08/24/20 05:18 Micro: Microbiology 08/23/20 10:17 Urine Culture - Preliminary Urine,Clean Catch Yeast species A&P Assessment and plan (1) Vertebral osteomyelitis: -With sepsis, resolved -CT of abdomen pelvis shows:Lytic changes in the L3 and L4 vertebral bodies without adjacent inflammation. Indolent vertebral body osteomyelitis, metastatic disease or degenerative cystic changes in the vertebral bodies. -CT-of the cervical spine does not show any significant osteomyelitis -I went over CT scan findings with Dr. Cuellar, she feels that changes in vertebral bodies are likely related to osteomyelitis -Unfortunately patient cannot have a MRI given his body habitus -Unfortunately cannot perform a tagged white blood cell scan as he cannot fit in the machine -Unfortunate patient cannot have a CT-guided biopsy, due to his body habitus, difficulty accessing site -White blood cell count 20.5, ESR greater than 112 -This is certainly a mixed picture, sepsis findings, given transaminitis, acute renal failure -Blood pressure normotensive, afebrile, saturating in the high 90s on room air -Lactic acid within normal limits -Inflammatory markers improving -Persistent leukocytosis, neutrophilic likely secondary to prednisone, but will speak to infectious disease -Had low-grade fever have resolved right-sided chest warmth and redness complaints, I cannot see any chest warmth or redness Plan: -Continue neurochecks -Continue bariatric bed -Needs to get up out of bed into bariatric chair, agrees to physical therapy -Placed on broad-spectrum antibiotic therapy Zyvox and the descalated to Cipro -Follow blood cultures, repeated blood cultures after low-grade fevers, certainly dialysis catheter infection is a possibility, we will continue to monitor -We will discuss with infectious disease, okay with Zyvox and Cipro -Monitor clinical progress -DNR/DNI -Heparin for DVT prophylaxis -Patient was updated -Discussed with PT OT, to do physical therapy in bariatric chair Status: Acute (2) Acute renal failure: -Etiology multifactorial's rhabdomyolysis and/or sepsis and or drug reaction and/or dress syndrome -Has not received any NSAIDs, is on lisinopril hydrochlorthiazide which has been held -Was on Lasix therapy -He does have a allergy to cephalexin, allergy unknown, patient is unsure what the allergy is, could he possibly have dress syndrome, however does not have significant eosinophilia on CBC -We will hold allopurinol as associate with dress syndrome,, Denis Diogo syndrome -CPK and uric acid are trending down -CT scan of the abdomen pelvis does not show any significant obstructive uropathy, or kidney stone, but it was a difficult study -Urine output 800 cc -Mild acidosis, hyponatremia, hyperkalemia, uremia, hypocalcemia, elevated phosphorus, elevated magnesium, anasarca Plan: -Right tunneled dialysis catheter in place, placed by Dr. Chino -Nephrology on consult -Urine studies no eosinophils seen -Peripheral smear toxic granulations, no eosinophils -Trend CPK and uric acids, improving -Urine output remains minimal, but improving -Dialysis catheter placement placement to right femoral vein -On Renvela, sodium bicarb -Nephrology consult, possible dialysis tomorrow -Stop Status: Acute (3) RLL pneumonia: Initially on chest x-ray patient was noted to have right lower lobe pneumonia for which she received treatment with ceftriaxone and azithromycin. Currently on Zyvox and Cipro CT chest negative for consolidative process, afebrile, on room air Status: Acute (4) Hypertension: -Hold Norvasc to 10 mg daily -Discontinue lisinopril given creatinine increase This is currently well controlled Status: Inactive (5) Diastolic CHF: -Cardiac echocardiogram shows EF of 55%, no regional wall motion abnormalities, poor quality study -d/c lasix , monitor urine output closely, Flowers catheter Status: Acute (6) Gout: Continue allopurinol Status: Acute (7) Bilateral lower extremity edema: Minimal today Status: Acute (8) Morbid obesity with BMI of 60.0-69.9, adult: Needs to follow-up with bariatric clinic, needs to be motivated to lose weight Status: Acute (9) Difficulty in walking: PT OT, however states unable to participate due to weakness Status: Acute (10) Bilateral primary osteoarthritis of hip: PT OT, pain control Status: Acute (11) HLD (hyperlipidemia): Continue simvastatin Status: Acute (12) Unable to ambulate: PT OT Status: Acute (13) Intractable pain: -Has some calf pain bilaterally, lower extremity Doppler negative for DVT Status: Acute (14) Sepsis: Status: Acute (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 -From allopurinol versus ceftriaxone -With transaminitis, acute renal failure, multiorgan dysfunction, I cannot see a rash -We will resume prednisone Status: Acute (16) Encephalopathy: -Continues to have some episodes of confusion, alert to person, place, not to time, follows all commands, cranial nerves II to XII grossly intact -ABG did not show any significant hypoxia or hypercarbia -Continue BiPAP overnight -Unlikely to be meningitis, no neck pain, no neck stiffness -Neurochecks -Patient does have significant uremia, resolved -Septic encephalopathy, resolved -We will continue to monitor -Alert oriented x3, refuses CT scan, will hold off, no focal neurologic deficits Status: Acute (17) Rhabdomyolysis: -Etiology of rhabdomyolysis is uncertain, patient has been immobile, in bed, been laying on his back, area vertebral osteomyelitis as a possible etiology -Certainly compartment syndrome could be an etiology, but unlikely - CT of his pelvis did show severe left hip osteoarthritis, no significant evidence of compartment syndrome Status: Acute (18) Hyperuricemia: Status: Acute (19) Transaminitis: Worsening today Plan: -GGT, LDH, LFTs -We will continue to monitor closely Status: Acute (20) Ischemic hepatitis: -LFTs have stabilized -Alk phos 184 -Ammonia 26 -INR 1.20 -GGT 330 -Total bili 0.8 -Acute hepatitis panel negative, HIV panel negative -Tylenol level negative -LOUIE, CMV, VZV, EBV pending, drug screen pending -CT scan of the abdomen pelvis with contrast liver unremarkable, gallbladder unremarkable, pancreas unremarkable, no biliary ductal dilatation -Right upper quadrant ultrasound shows hepatomegaly with diffuse fatty infiltration -Patient does have hypotensive episodes during dialysis, -Ischemic hepatitis likely secondary to sepsis, and hypotensive episodes during dialysis Plan: -Goal is to minimize hypotension -Minimize low blood pressures during dialysis -I have stopped all blood pressure medications -Continue to trend LFTs Status: Acute (21) Depression: -Continue Prozac -We will try some Ritalin 5 mg twice daily, to stimulate him a bit, monitor heart rates -I have consulted psychiatry Status: Acute (22) Generalized weakness: -I did discuss the case with rheumatology, to evaluate for possible polymyalgia rheumatica, polymyositis, however they feel it is fairly unlikely as patient's symptoms are much more diffuse rather than focal, not concentrating on particular muscle groups -Patient is willing to participate in physical therapy Status: Acute (23) Anemia: -Hemoglobin is down to 9.2, no overt signs of bleeding -Add Protonix 40 twice daily -Likely secondary to renal failure, possibly Zyvox -We will continue to monitor Status: Acute Additional A&P Information Dvt ppx: Heparin Patient is a DNR/DNI Dispo: Pending on patient's physical therapy progress, either home or intermediate, 6 weeks IV antibiotics Plan for today, patient agrees to physical therapy, will see how he does with physical therapy continue antibiotics, monitor hemoglobin monitor renal function, monitor urine output Attestations Medical Necessity Statement*: Patient requires hospitalization for generalized weakness, vertebral osteomyelitis, acute renal failure, ischemic hepatitis Coding Level of Care Code Acute [employer] [facility] F[facility] Diagnoses Vertebral osteomyelitis M46.20 Acute renal failure N17.9 RLL pneumonia J18.9 Hypertension I10 Diastolic CHF I50.30 Gout M10.9 Bilateral lower extremity edema R60.0 Morbid obesity with BMI of 60.0-69.9, adult E66.01; Z68.44 Difficulty in walking R26.2 Bilateral primary osteoarthritis of hip M16.0 HLD (hyperlipidemia) E78.5 Unable to ambulate R26.2 Intractable pain R52 Sepsis A41.9 DRESS syndrome D72.12; T50.905A Encephalopathy G93.40 Rhabdomyolysis M62.82 Hyperuricemia E79.0 Transaminitis R74.01 Ischemic hepatitis K75.9 Depression F32.9 Generalized weakness R53.1 Anemia D64.9
--- NOTE | 2020-08-24 14:36 | PC.NURSE ---
Physical therapy and occupational therapy in room with patient, agreeable to turn completely to side allowing nursing staff to address pressure injury to sacrum, X2 stage 2 pressure injury noted one to left buttock and right buttock, optifoam applied by nursing staff, completed bed bath and then transferred to chair via go lift.
--- NOTE | 2020-08-24 15:36 | PC.NURSE ---
Patient moved from chair to bed via go total assist, repositioned to right side with pillows to reduce pressure, noted skin tear to right lateral upper chest optifoam applied, completed david care, purulent dried drainage noted to scrotom cleaned and applied new stat lock for vera,call light in reach, side rails up X2.
[2020-08-24] MEDS: linezolid 600 mg Tablet PO (17:30)
[2020-08-24] MEDS: nystatin powder 15 gm Btl 1 APPLIC TOPICAL (17:30)
[2020-08-24 17:42] LABS: Glucose Point of Care 148 mg/dL (70-110)
--- NOTE | 2020-08-24 18:30 | PM.NHP ---
Providers/Chief Complaint Admitting Physician: Tremaine Ferrari MD Chief Complaint: swelling and pain in arms and legs HPI NPU History of Present Illness Ceferino Rodarte is a 65 year old male who presented to the emergency department with the following report: Chief complaint: General Medical Stated complaint: swelling and pain in arms and legs Time Seen by Provider: 08/04/20 10:31 History of Present Illness: HPI narrative: Patient is a 65-year-old male from home accompanied by seen for multiple complaints. Primary complaint is worsening pain in the right shoulder. He has a history of osteoarthritis of the right shoulder, but also complains of worsening pain with any motion over the last 3 days without injury, fall, or other acute incident. He states that he was started on medicine for gout roughly 1 month ago. The trouble is that he is dependent on using crutches and now that his shoulder is hurting so much, he is unable to use crutches, thus he is immobile at home. Prior to EMS arrival, he was unable to get out of the bed. He required multiple EMS providers to help him from his bed to the stretcher. He denies fever, trauma to the area, other recent illness. He also complains of bilateral hand swelling and difficulty picking things up bilaterally. He was admitted to the Medr department secondary to his CHF, intractable pain, lower leg edema and other complaints. Over the past 2 to 3 weeks he has received significant interventions and now a psychiatric consult was requested secondary to significant concerns regarding their need to get him to a facility to continue his improvement and him more or less refusing to engage in the necessary aftercare in the hospital leading to him not being able to have options for him for discharge. Today he presents reporting that he has no significant psychiatric history. He told the story of how he had been functioning fairly well given his limitations, morbid obesity etc. He described his approach to get around but unfortunately he had some setbacks and spent some time immobilized and is now struggling to regain that functionality back which was a greatly diminished functionality. He has had no inpatient psychiatric care, denies significant addiction treatment or issues, and reports no significant psychosocial challenges outside the fact that both he and his have really been stability and physical functioning. At this time he acknowledges that his resistance to engaging in treatment is not founded on not understanding its importance but being very taken aback by the pain issues that come with some trying to manage things physically. We had a long discussion about how critical it is for him to embark on that and slowly work through the pain and immobility to avoid having a considerably worse outcome and ultimately losing his ambulatory function. He endorsed a plan to follow through with the recommendations of Dr. Ferrari moving forward. Meds NPU Home Medications Medication Instructions Recorded Confirmed Last Taken Type cyclobenzaprine 10 mg tablet 10 mg PO DAILY@08 tab 07/28/20 08/04/20 08/04/20 History furosemide 40 mg tablet 40 mg PO DAILY@13 07/28/20 08/04/20 08/04/20 History hydrocodone 5 mg-acetaminophen 325 1 tab PO Q6H PRN 07/28/20 08/04/20 08/04/20 History mg tablet simvastatin 10 mg tablet 10 mg PO DAILY@20 07/28/20 08/04/20 08/03/20 History allopurinol 200 mg PO DAILY@20 08/04/20 08/04/20 08/03/20 History lisinopril-hydrochlorothiazide 2 tab PO DAILY@08 08/04/20 08/04/20 08/04/20 History potassium chloride 10 meq PO DAILY@20 08/04/20 08/04/20 08/03/20 History amlodipine 10 mg PO DAILY@08 #0 tab 08/09/20 08/04/20 08/04/20 Rx amlodipine 10 mg PO DAILY@08 30 Days tab 08/09/20 Unknown Rx famotidine 20 mg PO BID 30 Days #60 tab 08/09/20 Unknown Rx gabapentin 300 mg PO BID 30 Days #60 cap 08/09/20 Unknown Rx Allergies Allergy/AdvReac Type Severity Reaction Status Date / Time cephalexin [From Keflex] Allergy Unknown Verified 08/04/20 10:15 paper tapre Allergy Unknown Uncoded 08/04/20 10:15 PFSH NPU PFSH: Medical History (Updated 08/29/20 @ 07:20 by Mark Harrison MD) Arthritis Bilateral primary osteoarthritis of hip Diastolic CHF Gout HLD (hyperlipidemia) Hypertension Surgical History (Updated 08/04/20 @ 15:08 by Tremaine Ferrari MD) H/O vein stripping H/O ventral hernia repair Family History (Updated 08/04/20 @ 15:09 by Tremaine Ferrari MD) Father CAD (coronary artery disease) Mother Aspiration pneumonia Social History (Updated 07/28/20 @ 10:07 by Nicholas Jaimes LPN) Smoking and tobacco status: never smoked Alcohol intake: never Current occupational status: retired Mental Status Exam MSE Comments: This is a morbidly obese white male with limited dress, grooming and eye contact. No abnormal movements except for psychomotor retardation. Cooperative with exam and no acute distress. Speech was normal rate and volume. Mood described as pretty good, affect congruent. Thought process organized. Thought content: Patient denied any suicidal or homicidal ideation, there were no delusions reported or noted, he denied any auditory or visual hallucinations. Attention and concentration were intact and memory appeared reliable but none were formally tested. He is alert and oriented x3. Insight and judgment are fair and impulse control is fair. Vitals/I&O/Wt Last Vital Signs Temp 96.7 F L 08/24/20 20:00 Pulse 95 08/24/20 20:00 Resp 20 H 08/24/20 20:00 BP 138/69 08/24/20 20:00 Pulse Ox 97 08/24/20 20:00 08/24/20 14:59 Intake Total 738.75 / 738.75 Output Total 600 / 600 Balance 138.75 / 138.75 Physical Exam Urinary Catheter Management^: Flowers: Cath Placed During This Visit: yes, but has since been removed by the nurse Reason for Continuing Indwelling Catheter: Assist Healing of Perineal & Sacral Wounds- Incontinent Patients Urinary Catheter Date of Insertion: 08/05/20 Urinary Catheter Time of Insertion: 15:00 Date Urinary Catheter Removed: 08/09/20 Time Urinary Catheter Discontinued: 05:45 Data NPU : 08/29/20 04:28 08/29/20 04:28 Micro: Microbiology 08/23/20 10:17 Urine Culture - Preliminary Urine,Clean Catch Yeast species Microbiology 08/23/20 10:17 Urine,Clean Catch Urine Culture - Preliminary Yeast species A&P Assessment and plan (1) Gout flare: Status: Acute (2) Anemia: Status: Acute (3) Generalized weakness: Status: Acute (4) Depression: Status: Acute (5) Ischemic hepatitis: Status: Acute (6) Transaminitis: Status: Acute (7) Hyperuricemia: Status: Acute (8) Rhabdomyolysis: Status: Acute (9) Encephalopathy: Status: Acute (10) DRESS syndrome: Status: Acute (11) Sepsis: Status: Acute (12) Somnolence: Status: Acute (13) Vertebral osteomyelitis: Status: Acute (14) Acute renal failure: Status: Acute (15) RLL pneumonia: Status: Acute (16) Bilateral primary osteoarthritis of hip: Status: Acute (17) HLD (hyperlipidemia): Status: Acute (18) Gout: Status: Acute (19) Diastolic CHF: Status: Acute (20) Difficulty in walking: Status: Acute (21) Bilateral lower extremity edema: Status: Acute (22) Unable to ambulate: Status: Acute (23) Intractable pain: Status: Acute (24) Morbid obesity with BMI of 60.0-69.9, adult: Status: Acute (25) Adjustment disorder with mixed disturbance of emotions and conduct in remission: Status: Acute Additional A&P Information This is a 65-year-old white male with a long history of medical comorbidities including morbid obesity, pain, difficulty with ambulation with significant adjustment issues to being in a situation where he is going to have to work really hard to regain his functioning. 1. Continue current medication. We will continue to consider whether medication is appropriate but he is not interested at this time. 2. Patient is aware of the demands that are in front of him and his resistance per his report was related to fear of the pain involved in the process. He endorses a plan to follow the treatment team recommendations moving forward. 3. We will continue to follow. Attestations NPU Medical Necessity Statement*: N/A. Please see primary team note for medical necessity. Coding Level of Care Code Acute Volunteer Services Assistant for Corrie Ordonez Diagnoses Gout flare M10.9 Anemia D64.9 Generalized weakness R53.1 Depression F32.9 Ischemic hepatitis K75.9 Transaminitis R74.01 Hyperuricemia E79.0 Rhabdomyolysis M62.82 Encephalopathy G93.40 DRESS syndrome D72.12; T50.905A Sepsis A41.9 Somnolence R40.0 Vertebral osteomyelitis M46.20 Acute renal failure N17.9 RLL pneumonia J18.9 Bilateral primary osteoarthritis of hip M16.0 HLD (hyperlipidemia) E78.5 Gout M10.9 Diastolic CHF I50.30 Difficulty in walking R26.2 Bilateral lower extremity edema R60.0 Unable to ambulate R26.2 Intractable pain R52 Morbid obesity with BMI of 60.0-69.9, adult E66.01; Z68.44 Adjustment disorder with mixed disturbance of emotions and conduct in remission F43.25
[2020-08-24 21:08] LABS: Glucose Point of Care 143 mg/dL (70-110)
[2020-08-25] VITALS (8 sets, daily range): BP systolic 112–144; BP diastolic 64–78; PULSE 82–101; RESP 18–20; TEMP 36.4–37; O2SAT 94–97
[2020-08-25 06:01] LABS: Basophils % 0.1 %; Eosinophils % 0.1 %; Hematocrit 31.3 % (42.0-52.0); Hemoglobin 9.6 g/dL (11.7-16.6); Lymphocytes # 1.1 10^3/uL (0.8-4.8); Lymphocytes % 6.9 %; Mean Corpuscular HGB Conc 30.7 g/dL (30.0-36.0); Mean Corpuscular Hemoglobin 27.7 pg (28.0-34.0); Mean Corpuscular Volume 90.5 fL (80-94); Monocytes # 1.5 10^3/uL (0.2-0.9); Monocytes % 9.5 %; Neutrophils # 13.28 10^3/uL (1.8-7.7); Neutrophils % 81.7 %; Nucleated Red Blood Cells % 0 %; Platelet Count 269 10^3/cmm (130-400); Red Blood Count 3.46 10^6/uL (4.1-5.3); Red Cell Distribution Width 15.9 % (12.1-15.1); White Blood Count 16.2 10^3/uL (4.0-10.0)
[2020-08-25] MEDS: heparin 5,000 unit/mL INJ 1 mL 5000 UNIT SUBCUT ×2 (06:03→17:48)
[2020-08-25] MEDS: linezolid 600 mg Tablet PO ×2 (06:03→17:52)
[2020-08-25 06:39] LABS: Glucose Point of Care 115 mg/dL (70-110)
[2020-08-25 07:04] LABS: Alanine Aminotransferase 167 U/L (0-41); Albumin Level 2.7 g/dL (3.5-5.2); Alkaline Phosphatase 167 IU/L (40-130); Anion Gap 20.9 (5-19); Aspartate Amino Transferase 48 U/L (0-40); Calcium 8.9 mg/dL (8.5-10.5); Carbon Dioxide 22 mmol/L (22-29); Chloride 97 mmol/L (98-107); Globulin 3.1 g/dL (1.3-4.6); Glomerular Filtration Rate 12.8 mL/min (90-130); Glucose 106 mg/dL (65-115); Magnesium 2.1 mg/dL (1.7-2.3); Osmolality Calculated 309 mOsm/kg (285-295); Phosphorus 6.3 mg/dL (2.5-4.5); Potassium 3.9 mmol/L (3.5-5.1); Sodium 136 mmol/L (136-145); Total Bilirubin 0.5 mg/dL (0.15-1.2); Total Protein 5.8 g/dL (6.6-8.7)
[2020-08-25 07:41] LABS: Blood Urea Nitrogen 86 mg/dL (8-23)
--- NOTE | 2020-08-25 07:53 | PM.PN ---
Subjective Subjective: Interval history: more awake. not eating or drinking much. Medications: Reviewed: Yes Medication Review Details: Current Medications Acetaminophen (Acetaminophen 325 Mg Tablet) 650 mg PO Q6H PRN PRN Reason: MILD PAIN Last Admin: 08/24/20 12:29 Dose: 650 mg Documented by: Bisacodyl (Bisacodyl 5 Mg Tablet) 10 mg PO DAILY PRN PRN Reason: CONSTIPATION Ciprofloxacin HCl (Ciprofloxacin 500 Mg Tablet) 250 mg PO DAILY [facility]; Protocol Last Admin: 08/24/20 08:21 Dose: 250 mg Documented by: Dextrose (Dextrose 50% Syringe 50 Ml) 25 ml IVP ONCE PRN; Protocol PRN Reason: hypoglycemia protocol Dextrose (Dextrose 50% Syringe 50 Ml) 50 ml IVP PRN PRN; Protocol PRN Reason: hypoglycemia protocol Dextrose (Dextrose 50% Syringe 50 Ml) 25 ml IVP ONCE PRN; Protocol PRN Reason: hypoglycemia protocol Dextrose (Dextrose 50% Syringe 50 Ml) 50 ml IVP PRN PRN; Protocol PRN Reason: hypoglycemia protocol Fluoxetine HCl (Fluoxetine 20 Mg Capsule) 20 mg PO DAILY [facility] Last Admin: 08/24/20 08:20 Dose: 20 mg Documented by: Glucagon (Glucagon 1 Mg/Ml Inj 1 Ml) 1 mg IM ONCE PRN; Protocol PRN Reason: Adult Acute Hypoglycemia Prot. Glucagon (Glucagon 1 Mg/Ml Inj 1 Ml) 1 mg IM ONCE PRN; Protocol PRN Reason: Adult Acute Hypoglycemia Prot. Haloperidol Lactate (Haloperidol Inj 5 Mg/Ml Inj 1 Ml) 1 mg IM Q4H PRN PRN Reason: AGITATION Heparin Sodium (Beef Lung) (Heparin 5,000 Unit/Ml Inj 1 Ml) 5,000 unit SUBCUT Q12H [facility] Last Admin: 08/25/20 06:03 Dose: 5,000 unit Documented by: Dextrose (D5w) 500 mls @ 100 mls/hr IV ONCE PRN; Protocol PRN Reason: Adult Acute Hypoglycemia Prot Dextrose (D5w) 500 mls @ 100 mls/hr IV ONCE PRN; Protocol PRN Reason: Adult Acute Hypoglycemia Prot Albumin Human (Albumin) 12.5 gm in 50 mls @ 60 mls/hr IV PRN PRN PRN Reason: Hypotension and/or symptomatic Last Infusion: 08/15/20 18:09 Dose: Infused Documented by: Albumin Human (Albumin) 12.5 gm in 50 mls @ 60 mls/hr IV PRN PRN PRN Reason: Hypotension and/or symptomatic Insulin Aspart (Insulin Aspart 100 Unit/1 Ml) 0 unit SUBCUT TIDWM [facility]; Protocol Last Admin: 08/24/20 17:55 Dose: 2 unit Documented by: Linezolid (Linezolid 600 Mg Tablet) 600 mg PO Q12H [facility]; Protocol Last Admin: 08/25/20 06:03 Dose: 600 mg Documented by: Methylphenidate HCl (Methylphenidate 10 Mg Tablet) 5 mg PO BID [facility] Last Admin: 08/24/20 17:33 Dose: 5 mg Documented by: Nystatin (Nystatin Powder 15 Gm Btl) 1 applic TOPICAL BID [facility] Last Admin: 08/24/20 17:30 Dose: 1 applic Documented by: Ondansetron HCl (Ondansetron 2 Mg/Ml Sdv 2 Ml) 4 mg IVP Q8H PRN PRN Reason: vomiting, or N/V if npo Pantoprazole Sodium (Pantoprazole Dr 40 Mg Tablet) 40 mg PO Q12H [facility] Last Admin: 08/24/20 21:58 Dose: 40 mg Documented by: Prednisone (Prednisone 20 Mg Tablet) 80 mg PO DAILY [facility] Last Admin: 08/24/20 08:19 Dose: 80 mg Documented by: Sevelamer Carbonate (Sevelamer 800 Mg Tablet) 2,400 mg PO TIDWM [facility] Last Admin: 08/24/20 17:30 Dose: 2,400 mg Documented by: Vitals/I&O/Wt Last Vital Signs Temp 98.6 F 08/25/20 07:32 Pulse 101 H 08/25/20 07:32 Resp 18 08/25/20 07:32 BP 112/64 08/25/20 07:32 Pulse Ox 96 08/25/20 07:32 08/24/20 08/25/20 08/25/20 22:59 06:59 14:59 Intake Total 500 / 1238.75 Output Total 850 / 1450 Balance 500 / 638.75 -850 / -211.25 Physical Exam Narrative: EXAM NARRATIVE: obese man in bed, comfortable, NARD VS noted heent- nc/at, eomi neck no jvp lungs- good air movement b/l Rt ACW dialysis catheter heart reg,no rub abd soft, nt, nd, +BS + vera ext b/l edema improved neuro- moves, a,a, o x 3 ACW dialysis catheter Urinary Catheter Management^: Vera: Cath Placed During This Visit: yes, but has since been removed by the nurse Reason for Continuing Indwelling Catheter: Assist Healing of Perineal & Sacral Wounds- Incontinent Patients Urinary Catheter Date of Insertion: 08/05/20 Urinary Catheter Time of Insertion: 15:00 Date Urinary Catheter Removed: 08/09/20 Time Urinary Catheter Discontinued: 05:45 Data : 08/25/20 05:25 08/25/20 05:25 Micro: Microbiology 08/23/20 10:17 Urine Culture - Preliminary Urine,Clean Catch Yeast species A&P Additional A&P Information 1. MAGGIE - likely infection mediated ATN/ Staph super infection PIGN - good uop -cr rising, though non-oliguric -give ivf and monitor for renal recovery vs further HD needs -has an ACW dialysis catheter 2. Vertebral osteomyelitis - on Zyvox/Cipro - Mgmt per primary team -wbc continues to inc pna wbc down to 16 3. Lytes - hyponatremia- from renal failure -improving hyperphosphatemia- on binder therapy -hyperuricemia- on allopurinol, may be dry 4. inc lfts improving 5. ck improved to 74 6. BP low- and he lives w/ high bp- dec meds. monitor w/ ivf 7. diastolic dysfunction- monitor clinically-euvolemic 8. morbid obesity 9. anemia from MAGGIE and osteomyelitis -improving Exam and interview performed with aid of bedside RN using telemedicine discussed w/ pt Attestations Medical Necessity Statement*: maggie Time Spent in Patient Care: 16 - 35 minutes Coding Level of Care Code Acute Side Sawyer for Miguelg Mery
[2020-08-25] MEDS: methylphenidate 10 mg Tablet 5 MG PO ×2 (08:36→17:48)
[2020-08-25] MEDS: ciprofloxacin 500 mg Tablet 250 MG PO (08:36)
[2020-08-25] MEDS: fluoxetine 20 mg Capsule PO (08:36)
[2020-08-25] MEDS: predniSONE 20 mg Tablet 80 MG PO (08:37)
[2020-08-25] MEDS: nystatin powder 15 gm Btl 1 APPLIC TOPICAL ×2 (08:37→17:52)
[2020-08-25] MEDS: pantoprazole DR 40 mg Tablet PO ×2 (08:38→21:42)
[2020-08-25] MEDS: sevelamer 800 mg Tablet 2400 MG PO ×3 (08:39→17:48)
[2020-08-25 10:52] LABS: Glucose Point of Care 163 mg/dL (70-110)
--- NOTE | 2020-08-25 12:12 | P.PN_ITS ---
Subjective Subjective: Interval history: This morning patient was examined, he is sitting in a wheelchair, telling that he is in a lot of pain, his knees hurt him, his hips hurt him, his joints hurt him, he tells me that he is hurting all over, he is receiving [place] for pain, I advised patient that I will try to manage his pain as best as I can, however this is the first time he has gone up out of bed in 2 weeks, and he will be in pain, if he wants to go home safely he is going to have to work with physical therapy, and deal with some degree of pain in order to gain his some level of function, that is totally up to him. Because if he stays in bed, he will likely succumb to a DVT or PE, sacral ulcers, pneumonia, UTI sepsis or septic shock Medications: Medication Review Details: Current Medications Acetaminophen (Acetaminophen 325 Mg Tablet) 650 mg PO Q6H PRN PRN Reason: MILD PAIN Last Admin: 08/24/20 12:29 Dose: 650 mg Documented by: Bisacodyl (Bisacodyl 5 Mg Tablet) 10 mg PO DAILY PRN PRN Reason: CONSTIPATION Ciprofloxacin HCl (Ciprofloxacin 500 Mg Tablet) 250 mg PO DAILY INA; Protocol Last Admin: 08/24/20 08:21 Dose: 250 mg Documented by: Dextrose (Dextrose 50% Syringe 50 Ml) 25 ml IVP ONCE PRN; Protocol PRN Reason: hypoglycemia protocol Dextrose (Dextrose 50% Syringe 50 Ml) 50 ml IVP PRN PRN; Protocol PRN Reason: hypoglycemia protocol Dextrose (Dextrose 50% Syringe 50 Ml) 25 ml IVP ONCE PRN; Protocol PRN Reason: hypoglycemia protocol Dextrose (Dextrose 50% Syringe 50 Ml) 50 ml IVP PRN PRN; Protocol PRN Reason: hypoglycemia protocol Fluoxetine HCl (Fluoxetine 20 Mg Capsule) 20 mg PO DAILY [facility] Last Admin: 08/24/20 08:20 Dose: 20 mg Documented by: Glucagon (Glucagon 1 Mg/Ml Inj 1 Ml) 1 mg IM ONCE PRN; Protocol PRN Reason: Adult Acute Hypoglycemia Prot. Glucagon (Glucagon 1 Mg/Ml Inj 1 Ml) 1 mg IM ONCE PRN; Protocol PRN Reason: Adult Acute Hypoglycemia Prot. Haloperidol Lactate (Haloperidol Inj 5 Mg/Ml Inj 1 Ml) 1 mg IM Q4H PRN PRN Reason: AGITATION Heparin Sodium (Beef Lung) (Heparin 5,000 Unit/Ml Inj 1 Ml) 5,000 unit SUBCUT Q12H [facility] Last Admin: 08/25/20 06:03 Dose: 5,000 unit Documented by: Dextrose (D5w) 500 mls @ 100 mls/hr IV ONCE PRN; Protocol PRN Reason: Adult Acute Hypoglycemia Prot Dextrose (D5w) 500 mls @ 100 mls/hr IV ONCE PRN; Protocol PRN Reason: Adult Acute Hypoglycemia Prot Albumin Human (Albumin) 12.5 gm in 50 mls @ 60 mls/hr IV PRN PRN PRN Reason: Hypotension and/or symptomatic Last Infusion: 08/15/20 18:09 Dose: Infused Documented by: Albumin Human (Albumin) 12.5 gm in 50 mls @ 60 mls/hr IV PRN PRN PRN Reason: Hypotension and/or symptomatic Insulin Aspart (Insulin Aspart 100 Unit/1 Ml) 0 unit SUBCUT TIDWM [facility]; Protocol Last Admin: 08/24/20 17:55 Dose: 2 unit Documented by: Linezolid (Linezolid 600 Mg Tablet) 600 mg PO Q12H [facility]; Protocol Last Admin: 08/25/20 06:03 Dose: 600 mg Documented by: Methylphenidate HCl (Methylphenidate 10 Mg Tablet) 5 mg PO BID [facility] Last Admin: 08/24/20 17:33 Dose: 5 mg Documented by: Nystatin (Nystatin Powder 15 Gm Btl) 1 applic TOPICAL BID [facility] Last Admin: 08/24/20 17:30 Dose: 1 applic Documented by: Ondansetron HCl (Ondansetron 2 Mg/Ml Sdv 2 Ml) 4 mg IVP Q8H PRN PRN Reason: vomiting, or N/V if npo Pantoprazole Sodium (Pantoprazole Dr 40 Mg Tablet) 40 mg PO Q12H [facility] Last Admin: 08/24/20 21:58 Dose: 40 mg Documented by: Prednisone (Prednisone 20 Mg Tablet) 80 mg PO DAILY [facility] Last Admin: 08/24/20 08:19 Dose: 80 mg Documented by: Sevelamer Carbonate (Sevelamer 800 Mg Tablet) 2,400 mg PO TIDWM [facility] Last Admin: 08/24/20 17:30 Dose: 2,400 mg Documented by: Vitals/I&O/Wt Last Vital Signs Temp 98.0 F 08/25/20 11:12 Pulse 95 08/25/20 11:12 Resp 18 08/25/20 11:12 BP 115/64 08/25/20 11:12 Pulse Ox 97 08/25/20 11:12 08/24/20 08/25/20 08/25/20 22:59 06:59 14:59 Intake Total 500 / 1238.75 480 / 480 Output Total 850 / 1450 Balance 500 / 638.75 -850 / -211.25 480 / 480 Physical Exam Narrative: EXAM NARRATIVE: Morbidly obese male Large pannus Const: COMMON NORMALS: no acute distress and patient oriented x3 HENMT: COMMON NORMALS: normocephalic HEAD & SCALP: normocephalic Neck/C-Spine: COMMON NORMALS: no JVD Chest: OTHER: Right chest, dialysis catheter in place Resp: COMMON NORMALS: normal respiratory effort, No retractions, No use of accessory muscles and clear to auscultation bilaterally AUSCULTATION: clear to auscultation bilaterally Cardio: COMMON NORMALS: no JVD, regular rate, regular rhythm, S1 normal heart sound present and S2 normal heart sound present RATE: regular rate RHYTHM: regular rhythm HEART SOUNDS: S1 normal heart sound present and S2 normal heart sound present GI: COMMON NORMALS: Normal to inspection, nondistended, normoactive bowel sounds present, Soft to palpation, non-tender, No hepatosplenomegaly present, no masses and no bruits PALPATION: Yes Soft to palpation and Yes No hepatosplenomegaly present Extremity: COMMON NORMALS: capillary refill normal, no clubbing, cyanosis or edema, no calf tenderness and no pedal edema Neuro: COMMON NORMALS: patient oriented x3 Psych: COMMON NORMALS: mental status grossly normal Skin: NARRATIVE SKIN EXAM: Right chest, dialysis catheter in place, no surrounding erythema, swelling, tenderness Urinary Catheter Management^: Flowers: Cath Placed During This Visit: yes, but has since been removed by the nurse Reason for Continuing Indwelling Catheter: Assist Healing of Perineal & Sacral Wounds- Incontinent Patients Urinary Catheter Date of Insertion: 08/05/20 Urinary Catheter Time of Insertion: 15:00 Date Urinary Catheter Removed: 08/09/20 Time Urinary Catheter Discontinued: 05:45 Data : 08/25/20 05:25 08/25/20 05:25 Micro: Microbiology 08/23/20 10:17 Urine Culture - Preliminary Urine,Clean Catch Yeast species A&P Assessment and plan (1) Vertebral osteomyelitis: -With sepsis, resolved -CT of abdomen pelvis shows:Lytic changes in the L3 and L4 vertebral bodies without adjacent inflammation. Indolent vertebral body osteomyelitis, metastatic disease or degenerative cystic changes in the vertebral bodies. -CT-of the cervical spine does not show any significant osteomyelitis -I went over CT scan findings with Dr. Cuellar, she feels that changes in vertebral bodies are likely related to osteomyelitis -Unfortunately patient cannot have a MRI given his body habitus -Unfortunately cannot perform a tagged white blood cell scan as he cannot fit in the machine -Unfortunate patient cannot have a CT-guided biopsy, due to his body habitus, difficulty accessing site -White blood cell count 16.2, ESR greater than 112 (Likely related to body habitus) -Blood pressure normotensive, afebrile, saturating in the high 90s on room air -Lactic acid within normal limits -Inflammatory markers improving -Persistent leukocytosis, neutrophilic likely secondary to prednisone, infectious disease advised to continue antibiotic therapy continue to monitor cultures -Right-sided tunneled dialysis catheter looks clean and dry -All blood cultures have been unremarkable -UA shows yeast species Plan: -Continue neurochecks -Continue bariatric bed -Needs to get up out of bed into bariatric chair, agrees to physical therapy -After speaking with infectious disease patient has been transitioned to p.o. Zyvox and Cipro for at least 6 weeks -Fluconazole for yeast UTI -Monitor clinical progress -DNR/DNI -Heparin for DVT prophylaxis -Patient was updated -Discussed with PT OT, to do physical therapy in bariatric chair Status: Acute (2) Acute renal failure: -Etiology multifactorial's rhabdomyolysis and/or sepsis and or drug reaction and/or dress syndrome -Has not received any NSAIDs, is on lisinopril hydrochlorthiazide which has been held -Was on Lasix therapy -He does have a allergy to cephalexin, allergy unknown, patient is unsure what the allergy is, could he possibly have dress syndrome, however does not have significant eosinophilia on CBC -We will hold allopurinol as associate with dress syndrome,, Denis Diogo syndrome -CPK and uric acid are trending down -CT scan of the abdomen pelvis does not show any significant obstructive uropathy, or kidney stone, but it was a difficult study -Urine output 1450 cc -Mild acidosis, hyponatremia, hyperkalemia, uremia, hypocalcemia, elevated ph osphorus, elevated magnesium, anasarca Plan: -Right tunneled dialysis catheter in place, placed by Dr. Chino -Nephrology on consult -Urine studies no eosinophils seen -Peripheral smear toxic granulations, no eosinophils -Trend CPK and uric acids, improving -Urine output has improved, -Dialysis catheter placement placement to right femoral vein -On Renvela, sodium bicarb -Nephrology consult Status: Acute (3) RLL pneumonia: Initially on chest x-ray patient was noted to have right lower lobe pneumonia for which she received treatment with ceftriaxone and azithromycin. Currently on Zyvox and Cipro CT chest negative for consolidative process, afebrile, on room air Status: Acute (4) Hypertension: -Hold Norvasc to 10 mg daily -Discontinue lisinopril given creatinine increase -This is currently well controlled Status: Inactive (5) Diastolic CHF: -Cardiac echocardiogram shows EF of 55%, no regional wall motion abnormalities, poor quality study -d/c lasix , monitor urine output closely, Flowers catheter Status: Acute (6) Gout: Allopurinol on hold for possible dress syndrome Given his generalized pain complaints, and elevated uric acid, he was started on prednisone 80 mg daily Status: Acute (7) Bilateral lower extremity edema: Minimal today Status: Acute (8) Morbid obesity with BMI of 60.0-69.9, adult: Needs to follow-up with bariatric clinic, needs to be motivated to lose weight Status: Acute (9) Difficulty in walking: PT OT, however states unable to participate due to weakness Status: Acute (10) Bilateral primary osteoarthritis of hip: PT OT, pain control Status: Acute (11) HLD (hyperlipidemia): Continue simvastatin Status: Acute (12) Unable to ambulate: PT OT Status: Acute (13) Intractable pain: -Has some calf pain bilaterally, lower extremity Doppler negative for DVT Status: Acute (14) Sepsis: Status: Acute (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 -From allopurinol versus ceftriaxone -With transaminitis, acute renal failure, multiorgan dysfunction, I cannot see a rash -W receiving prednisone Status: Acute (16) Encephalopathy: -Continues to have some episodes of confusion, alert to person, place, not to time, follows all commands, cranial nerves II to XII grossly intact -ABG did not show any significant hypoxia or hypercarbia -Continue BiPAP overnight -Unlikely to be meningitis, no neck pain, no neck stiffness -Neurochecks -Patient does have significant uremia, resolved -Septic encephalopathy, resolved -We will continue to monitor -Alert oriented x3, refuses CT scan, will hold off, no focal neurologic deficits Status: Acute (17) Rhabdomyolysis: -Etiology of rhabdomyolysis is uncertain, patient has been immobile, in bed, been laying on his back, area vertebral osteomyelitis as a possible etiology -Certainly compartment syndrome could be an etiology, but unlikely - CT of his pelvis did show severe left hip osteoarthritis, no significant evidence of compartment syndrome Status: Acute (18) Hyperuricemia: Status: Acute (19) Transaminitis: Improving Status: Acute (20) Ischemic hepatitis: -LFTs have stabilized -Alk phos 184 -Ammonia 26 -INR 1.20 -GGT 330 -Total bili 0.8 -Acute hepatitis panel negative, HIV panel negative -Tylenol level negative -LOUIE, CMV, VZV, EBV pending, drug screen pending -CT scan of the abdomen pelvis with contrast liver unremarkable, gallbladder unremarkable, pancreas unremarkable, no biliary ductal dilatation -Right upper quadrant ultrasound shows hepatomegaly with diffuse fatty infiltration -Patient does have hypotensive episodes during dialysis, -Ischemic hepatitis likely secondary to sepsis, and hypotensive episodes during dialysis Plan: -Goal is to minimize hypotension -Minimize low blood pressures during dialysis -I have stopped all blood pressure medications -Continue to trend LFTs Status: Acute (21) Depression: -Continue Prozac -We will try some Ritalin 5 mg twice daily, to stimulate him a bit, monitor heart rates -I have consulted psychiatry Status: Acute (22) Generalized weakness: -I did discuss the case with rheumatology, to evaluate for possible polymyalgia rheumatica, polymyositis, however they feel it is fairly unlikely as patient's symptoms are much more diffuse rather than focal, not concentrating on particular muscle groups -Patient is willing to participate in physical therapy Status: Acute (23) Anemia: -Hemoglobin is down to 9.6, no overt signs of bleeding -Add Protonix 40 twice daily -Likely secondary to renal failure, possibly Zyvox -We will continue to monitor Status: Acute Additional A&P Information Dvt ppx: Heparin Patient is a DNR/DNI Dispo: Pending on patient's physical therapy progress, either home or alf, 6 weeks IV antibiotics Plan for today, start physical therapy, will manage pain Attestations Medical Necessity Statement*: Patient requires hospitalization for vertebral osteomyelitis, acute renal failure, ischemic hepatitis, anemia, generalized wea kness, depression, Coding Level of Care Code Acute Auto Body Technician for [facility] Fwd Diagnoses Vertebral osteomyelitis M46.20 Acute renal failure N17.9 RLL pneumonia J18.9 Hypertension I10 Diastolic CHF I50.30 Gout M10.9 Bilateral lower extremity edema R60.0 Morbid obesity with BMI of 60.0-69.9, adult E66.01; Z68.44 Difficulty in walking R26.2 Bilateral primary osteoarthritis of hip M16.0 HLD (hyperlipidemia) E78.5 Unable to ambulate R26.2 Intractable pain R52 Sepsis A41.9 DRESS syndrome D72.12; T50.905A Encephalopathy G93.40 Rhabdomyolysis M62.82 Hyperuricemia E79.0 Transaminitis R74.01 Ischemic hepatitis K75.9 Depression F32.9 Generalized weakness R53.1 Anemia D64.9
[2020-08-25] MEDS: fluconazole 100 mg Tablet 200 MG PO (12:38)
[2020-08-25] MEDS: sodium chloride 0.9% 1,000 ML 100 ML IV (14:29)
[2020-08-25] MEDS: HYDROcodone-acetaminophen 7.5-325 mg Tablet 1 TAB PO (15:51)
[2020-08-25] MEDS: polyethylene glycol 3350 Pkt 17 gm PO (15:51)
[2020-08-25 16:57] LABS: Glucose Point of Care 138 mg/dL (70-110)
[2020-08-25] MEDS: docusate sodium 100 mg Capsule PO (17:48)
--- NOTE | 2020-08-25 19:37 | P.PN_ITS ---
Subjective NPU Subjective: Interval history: Ceferino presents today continuing to seem to be in good spirits considering his situation. He denies any plans to resist the treatment team recommendations for ongoing physical therapy so that he can want improvement and to be able to demonstrate himself to be a reasonable admission to physical therapy facilities moving forward. He denies any significant mood or anxiety issues that need to be managed at this time. He understands this will be a long haul and denied any psychiatric concerns that need to be addressed. Mental Status Exam MSE Comments: This is a morbidly obese white male with limited dress, grooming and eye contact. No abnormal movements except for psychomotor retardation. Cooperative with exam and no acute distress. Speech was normal rate and volume. Mood described as good, affect congruent. Thought process organized. Thought content: Patient denied any suicidal or homicidal ideation, there were no delusions reported or noted, he denied any auditory or visual hallucinations. Attention and concentration were intact and memory appeared reliable but none were formally tested. He is alert and oriented x3. Insight and judgment are fair and impulse control is fair. Vitals/I&O/Wt Last Vital Signs Temp 97.8 F 08/25/20 20:00 Pulse 82 08/25/20 20:00 Resp 18 08/25/20 20:00 BP 144/78 08/25/20 20:00 Pulse Ox 97 08/25/20 20:00 08/25/20 08/25/20 08/26/20 14:59 22:59 06:59 Intake Total 480 / 480 240 / 720 1000 / 1720 Output Total 950 / 950 Balance 480 / 480 -710 / -230 1000 / 770 Physical Exam Urinary Catheter Management^: Flowers: Cath Placed During This Visit: yes, but has since been removed by the nurse Reason for Continuing Indwelling Catheter: Acute Urinary Retention or Obstruction Urinary Catheter Date of Insertion: 08/05/20 Urinary Catheter Time of Insertion: 15:00 Date Urinary Catheter Removed: 08/09/20 Time Urinary Catheter Discontinued: 05:45 Data NPU : 08/29/20 04:28 08/29/20 04:28 A&P Additional A&P Information (1) Gout flare: (2) Anemia: (3) Generalized weakness: (4) Depression: (5) Ischemic hepatitis: (6) Transaminitis: (7) Hyperuricemia: (8) Rhabdomyolysis: (9) Encephalopathy: (10) DRESS syndrome: (11) Sepsis: (12) Somnolence: (13) Vertebral osteomyelitis: (14) Acute renal failure: (15) RLL pneumonia: (16) Bilateral primary osteoarthritis of hip: (17) HLD (hyperlipidemia): (18) Gout: (19) Diastolic CHF: (20) Difficulty in walking: (21) Bilateral lower extremity edema: (22) Unable to ambulate: (23) Intractable pain: (24) Morbid obesity with BMI of 60.0-69.9, adult: (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 1. Continue current medication. We will continue to consider whether medication is appropriate but he is not interested at this time. 2. Patient is aware of the demands that are in front of him and his resistance per his report was related to fear of the pain involved in the process. He endorses a plan to follow the treatment team recommendations moving forward. 3. Please advise if any additional psychiatric concerns arise. Attestations NPU Medical Necessity Statement*: N/A. Please see primary team note for medical necessity. Coding Level of Care Code Acute Distribution Coordinator for Correi Ordonez
[2020-08-25 21:08] LABS: Glucose Point of Care 145 mg/dL (70-110)
[2020-08-26] VITALS (11 sets, daily range): BP systolic 128–156; BP diastolic 69–84; PULSE 80–96; RESP 16–18; TEMP 36.6–37.1; O2SAT 95–99
[2020-08-26] MEDS: sodium chloride 0.9% 1,000 ML 100 ML IV ×2 (02:04→13:15)
[2020-08-26 05:09] LABS: Basophils % 0.1 %; Hematocrit 29.2 % (42.0-52.0); Hemoglobin 9.2 g/dL (11.7-16.6); Lymphocytes # 0.8 10^3/uL (0.8-4.8); Lymphocytes % 7.3 %; Mean Corpuscular HGB Conc 31.5 g/dL (30.0-36.0); Mean Corpuscular Hemoglobin 27.8 pg (28.0-34.0); Mean Corpuscular Volume 88.2 fL (80-94); Mean Platelet Volume 10.7 fL (7.4-10.4); Monocytes # 1.2 10^3/uL (0.2-0.9); Monocytes % 10.3 %; Neutrophils # 9.04 10^3/uL (1.8-7.7); Nucleated Red Blood Cells % 0 %; Platelet Count 190 10^3/cmm (130-400); Red Blood Count 3.31 10^6/uL (4.1-5.3); Red Cell Distribution Width 15.9 % (12.1-15.1); White Blood Count 11.2 10^3/uL (4.0-10.0)
[2020-08-26 05:31] LABS: Alanine Aminotransferase 155 U/L (0-41); Albumin Level 2.6 g/dL (3.5-5.2); Alkaline Phosphatase 171 IU/L (40-130); Anion Gap 21.2 (5-19); Aspartate Amino Transferase 67 U/L (0-40); Calcium 8.5 mg/dL (8.5-10.5); Carbon Dioxide 23 mmol/L (22-29); Chloride 99 mmol/L (98-107); Creatine Phosphokinase 26 U/L (39-308); Glomerular Filtration Rate 15.1 mL/min (90-130); Glucose 113 mg/dL (65-115); Magnesium 2.3 mg/dL (1.7-2.3); Osmolality Calculated 318 mOsm/kg (285-295); Phosphorus 5.8 mg/dL (2.5-4.5); Potassium 4.2 mmol/L (3.5-5.1); Sodium 139 mmol/L (136-145); Total Bilirubin 0.5 mg/dL (0.15-1.2); Total Protein 5.6 g/dL (6.6-8.7); Uric Acid 11.7 mg/dL (3.4-7.0)
[2020-08-26] MEDS: heparin 5,000 unit/mL INJ 1 mL 5000 UNIT SUBCUT ×2 (05:59→17:12)
[2020-08-26] MEDS: linezolid 600 mg Tablet PO ×2 (06:00→17:11)
[2020-08-26 06:27] LABS: Blood Urea Nitrogen 94 mg/dL (8-23)
[2020-08-26 07:12] LABS: Glucose Point of Care 94 mg/dL (70-110)
--- NOTE | 2020-08-26 08:22 | PM.PN ---
Subjective Subjective: Interval history: no new complaints. In chair, at bedside. Discussing discharge plans. Medications: Reviewed: Yes Vitals/I&O/Wt Last Vital Signs Temp 97.8 F 08/26/20 07:40 Pulse 96 08/26/20 07:40 Resp 18 08/26/20 07:40 BP 149/73 08/26/20 07:40 Pulse Ox 96 08/26/20 07:40 08/25/20 08/26/20 08/26/20 22:59 06:59 14:59 Intake Total 240 / 720 1000 / 1720 Output Total 950 / 950 Balance -710 / -230 1000 / 770 Physical Exam Const: COMMON NORMALS: no acute distress GENERAL APPEARANCE: cooperative NUTRITIONAL APPEARANCE: obese Neck/C-Spine: OTHER: tunneled right IJ HD catheter Urinary Catheter Management^: Flowers: Cath Placed During This Visit: yes, but has since been removed by the nurse Reason for Continuing Indwelling Catheter: Acute Urinary Retention or Obstruction Urinary Catheter Date of Insertion: 08/05/20 Urinary Catheter Time of Insertion: 15:00 Date Urinary Catheter Removed: 08/09/20 Time Urinary Catheter Discontinued: 05:45 Data : 08/26/20 04:44 08/26/20 04:44 Other Labs: phos 5.8 Micro: Microbiology 08/20/20 18:40 Blood Culture - Final Blood NO GROWTH AFTER 5 DAYS 08/20/20 05:52 Blood Culture - Final Blood NO GROWTH AFTER 5 DAYS A&P Additional A&P Information 1. Acute kidney injury, nonoliguric, no indications for dialysis at this time, eGFR 15 ml/min 2. Osteomyelitis/sepsis 3. Morbid obesity 4. Hyperuricemia 5. Anemia - Hb stable Recommend: leave tunneled HD catheter in for now. Discontinue IVF. Attestations Medical Necessity Statement*: per primary service Coding Level of Care Code Acute Credit Collections Rep for Corrie Ordonez
[2020-08-26] MEDS: sevelamer 800 mg Tablet 2400 MG PO ×3 (08:38→17:11)
[2020-08-26] MEDS: ciprofloxacin 500 mg Tablet 250 MG PO (09:25)
[2020-08-26] MEDS: docusate sodium 100 mg Capsule PO ×2 (09:29→17:11)
[2020-08-26] MEDS: fluoxetine 20 mg Capsule PO (09:30)
[2020-08-26] MEDS: fluconazole 100 mg Tablet 200 MG PO (09:30)
[2020-08-26] MEDS: nystatin powder 15 gm Btl 1 APPLIC TOPICAL ×2 (09:31→17:12)
[2020-08-26] MEDS: pantoprazole DR 40 mg Tablet PO ×2 (09:31→22:22)
[2020-08-26] MEDS: polyethylene glycol 3350 Pkt 17 gm PO (09:32)
[2020-08-26] MEDS: predniSONE 20 mg Tablet 80 MG PO (09:32)
[2020-08-26] MEDS: methylphenidate 10 mg Tablet 5 MG PO ×2 (09:50→17:11)
[2020-08-26] MEDS: HYDROcodone-acetaminophen 7.5-325 mg Tablet 1 TAB PO ×2 (09:53→18:28)
[2020-08-26 10:59] LABS: Glucose Point of Care 116 mg/dL (70-110)
--- NOTE | 2020-08-26 12:46 | PC.CHAP ---
Pastoral Care Encounter/Spiritual Assessment Type of Contact [] Declined chain maker machine visit [] Patient/Family/Request visit [] Outpatient visit [xx] Follow-up visit [] Physician referral [] Code/Alert [xx] Routine visit [] Staff referral [] Actively dying [] Patient sleeping [] Family support [] [] Out of room [] Palliative care [] [] Receiving care in room [] Pre-surgical visit [] Trauma [xx] Long length of stay [] ICU visit [] Other: Relational/Emotional Strength [xx] Patient feels connected with others/family/visitors/staff [] Distress [] Loneliness/isolation [] Abandonment Spirituality of Patient [] Person of Minal [] Attends Orthodoxy of their Minal [xx] Believes in Prayer [] Reads Bible or Pentecostalism materials [] There are Spiritual issues to be addressed Economics Instructor Interventions [xx] Prayer [xx] Active listening [] Non-anxious presence [] Spiritual/emotional support [] Crisis/trauma care [] Spiritual counseling [] Bereavement support [] Provided bereavement packet [] Provided Bible/devotional materials [] Provided toy/stuffed animal, coloring book to patient or family member [] Provided Communion [] Anointing/[place] [] Salvation [] Completed spiritual assessment [] Other: Impact on Illness or Injury [] Angry [] Fearful [] Anxious [] Often cries [] Exhaustion [xx] Unable to work [xx] Unable to attend samaritan [xx] Unable to walk/stand [] Unable to read [xx] Unable to drive [] Unable to eat/drink [xx] Unable to sleep [] Unable to be with family [] Patient intubated [] Other: Summary Pts's handicapped and their medical/home health care social worker were present in room with patient. Patient has serious health issues and , Arabella, is very concerned and fearful for him. Economics Instructor prayed for all 3 people. Time spent with patient 10 minutes
--- NOTE | 2020-08-26 14:25 | P.PN_ITS ---
Subjective Subjective: Interval history: Patient did state that he was in a lot of pain yesterday after ambulation, overnight he refused to return, and this morning had another extensive discussion with him, he agrees to work with physical therapy today Vitals/I&O/Wt Last Vital Signs Temp 97.8 F 08/26/20 07:40 Pulse 87 08/26/20 12:00 Resp 18 08/26/20 12:00 BP 153/84 08/26/20 12:00 Pulse Ox 99 08/26/20 12:00 08/25/20 08/26/20 08/26/20 22:59 06:59 14:59 Intake Total 240 / 720 1000 / 1720 1240 / 1240 Output Total 950 / 950 800 / 800 Balance -710 / -230 1000 / 770 440 / 440 Physical Exam Narrative: EXAM NARRATIVE: Morbidly obese male Large pannus Const: COMMON NORMALS: no acute distress and patient oriented x3 HENMT: COMMON NORMALS: normocephalic HEAD & SCALP: normocephalic Neck/C-Spine: COMMON NORMALS: no JVD Resp: COMMON NORMALS: normal respiratory effort, No retractions, No use of accessory muscles and clear to auscultation bilaterally AUSCULTATION: clear to auscultation bilaterally Cardio: COMMON NORMALS: no JVD, regular rate, regular rhythm, S1 normal heart sound present and S2 normal heart sound present RATE: regular rate RHYTHM: regular rhythm HEART SOUNDS: S1 normal heart sound present and S2 normal heart sound present GI: COMMON NORMALS: Normal to inspection, nondistended, normoactive bowel sounds present, Soft to palpation, non-tender, No hepatosplenomegaly present, no masses and no bruits PALPATION: Yes Soft to palpation and Yes No hepatosplenomegaly present Extremity: COMMON NORMALS: capillary refill normal, no clubbing, cyanosis or edema, no calf tenderness and no pedal edema Neuro: COMMON NORMALS: patient oriented x3 Psych: COMMON NORMALS: mental status grossly normal Skin: NARRATIVE SKIN EXAM: Right chest, dialysis catheter in place, no surrounding erythema, swelling, tenderness Urinary Catheter Management^: Flowers: Cath Placed During This Visit: yes, but has since been removed by the nurse Reason for Continuing Indwelling Catheter: Acute Urinary Retention or Obstruction Urinary Catheter Date of Insertion: 08/05/20 Urinary Catheter Time of Insertion: 15:00 Date Urinary Catheter Removed: 08/09/20 Time Urinary Catheter Discontinued: 05:45 Data : 08/26/20 04:44 08/26/20 04:44 Micro: Microbiology 08/23/20 10:17 Urine Culture - Final Urine,Clean Catch Katherine albicans 08/20/20 18:40 Blood Culture - Final Blood NO GROWTH AFTER 5 DAYS 08/20/20 05:52 Blood Culture - Final Blood NO GROWTH AFTER 5 DAYS A&P Assessment and plan (1) Vertebral osteomyelitis: -With sepsis, resolved -CT of abdomen pelvis shows:Lytic changes in the L3 and L4 vertebral bodies without adjacent inflammation. Indolent vertebral body osteomyelitis, metastatic disease or degenerative cystic changes in the vertebral bodies. -CT-of the cervical spine does not show any significant osteomyelitis -I went over CT scan findings with Dr. Cuellar, she feels that changes in vertebral bodies are likely related to osteomyelitis -Unfortunately patient cannot have a MRI given his body habitus -Unfortunately cannot perform a tagged white blood cell scan as he cannot fit in the machine -Unfortunate patient cannot have a CT-guided biopsy, due to his body habitus, difficulty accessing site -White blood cell count 11.2, ESR greater than 112 (Likely related to body hab itus) -Blood pressure normotensive, afebrile, saturating in the high 90s on room air -Lactic acid within normal limits -Inflammatory markers improving -Persistent leukocytosis, neutrophilic likely secondary to prednisone, infectious disease advised to continue antibiotic therapy continue to monitor cultures -Right-sided tunneled dialysis catheter looks clean and dry -All blood cultures have been unremarkable -UA shows yeast species Plan: -Continue neurochecks -Continue bariatric bed -Needs to get up out of bed into bariatric chair, agrees to physical therapy -After speaking with infectious disease patient has been transitioned to p.o. Zyvox and Cipro for at least 6 weeks -Fluconazole for yeast UTI -Monitor clinical progress -DNR/DNI -Heparin for DVT prophylaxis -Patient was updated -Discussed with PT OT, to do physical therapy in bariatric chair Status: Acute (2) Acute renal failure: -Etiology multifactorial's rhabdomyolysis and/or sepsis and or drug reaction and/or dress syndrome -Has not received any NSAIDs, is on lisinopril hydrochlorthiazide which has been held -Was on Lasix therapy -He does have a allergy to cephalexin, allergy unknown, patient is unsure what the allergy is, could he possibly have dress syndrome, however does not have significant eosinophilia on CBC -We will hold allopurinol as associate with dress syndrome,, Denis Diogo syndrome -CPK and uric acid are trending down -CT scan of the abdomen pelvis does not show any significant obstructive uropathy, or kidney stone, but it was a difficult study -Urine output 1750 Plan: -Right tunneled dialysis catheter in place, placed by Dr. Chino -Nephrology on consult -Urine studies no eosinophils seen -Peripheral smear toxic granulations, no eosinophils -Trend CPK and uric acids, improving -Urine output has improved, -Dialysis catheter placement placement to right femoral vein -On Renvela, sodium bicarb -Nephrology consult Status: Acute (3) RLL pneumonia: Initially on chest x-ray patient was noted to have right lower lobe pneumonia for which she received treatment with ceftriaxone and azithromycin. Currently on Zyvox and Cipro CT chest negative for consolidative process, afebrile, on room air Status: Acute (4) Hypertension: -Hold Norvasc to 10 mg daily -Discontinue lisinopril given creatinine increase -This is currently well controlled Status: Inactive (5) Diastolic CHF: -Cardiac echocardiogram shows EF of 55%, no regional wall motion abnormalities, poor quality study -d/c lasix , monitor urine output closely, Flowers catheter Status: Acute (6) Gout: Allopurinol on hold for possible dress syndrome Given his generalized pain complaints, and elevated uric acid, he was started on prednisone 80 mg daily Status: Acute (7) Bilateral lower extremity edema: Minimal today Status: Acute (8) Morbid obesity with BMI of 60.0-69.9, adult: Needs to follow-up with bariatric clinic, needs to be motivated to lose weight Status: Acute (9) Difficulty in walking: PT OT, however states unable to participate due to weakness Status: Acute (10) Bilateral primary osteoarthritis of hip: PT OT, pain control Status: Acute (11) HLD (hyperlipidemia): Continue simvastatin Status: Acute (12) Unable to ambulate: PT OT Status: Acute (13) Intractable pain: -Has some calf pain bilaterally, lower extremity Doppler negative for DVT Status: Acute (14) Sepsis: Status: Acute (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 -From allopurinol versus ceftriaxone -With transaminitis, acute renal failure, multiorgan dysfunction, I cannot see a rash -W receiving prednisone Status: Acute (16) Encephalopathy: -Continues to have some episodes of confusion, alert to person, place, not to time, follows all commands, cranial nerves II to XII grossly intact -ABG did not show any significant hypoxia or hypercarbia -Continue BiPAP overnight -Unlikely to be meningitis, no neck pain, no neck stiffness -Neurochecks -Patient does have significant uremia, resolved -Septic encephalopathy, resolved -We will continue to monitor -Alert oriented x3, refuses CT scan, will hold off, no focal neurologic deficits Status: Acute (17) Rhabdomyolysis: -Etiology of rhabdomyolysis is uncertain, patient has been immobile, in bed, been laying on his back, area vertebral osteomyelitis as a possible etiology -Certainly compartment syndrome could be an etiology, but unlikely - CT of his pelvis did show severe left hip osteoarthritis, no significant evidence of compartment syndrome Status: Acute (18) Hyperuricemia: Status: Acute (19) Transaminitis: Improving Status: Acute (20) Ischemic hepatitis: -LFTs have stabilized -Alk phos 184 -Ammonia 26 -INR 1.20 -GGT 330 -Total bili 0.8 -Acute hepatitis panel negative, HIV panel negative -Tylenol level negative -LOUIE, CMV, VZV, EBV pending, drug screen pending -CT scan of the abdomen pelvis with contrast liver unremarkable, gallbladder unremarkable, pancreas unremarkable, no biliary ductal dilatation -Right upper quadrant ultrasound shows hepatomegaly with diffuse fatty infiltration -Patient does have hypotensive episodes during dialysis, -Ischemic hepatitis likely secondary to sepsis, and hypotensive episodes during dialysis Plan: -Goal is to minimize hypotension -Minimize low blood pressures during dialysis -I have stopped all blood pressure medications -Continue to trend LFTs Status: Acute (21) Depression: -Continue Prozac -We will try some Ritalin 5 mg twice daily, to stimulate him a bit, monitor heart rates -I have consulted psychiatry Status: Acute (22) Generalized weakness: -I did discuss the case with rheumatology, to evaluate for possible p olymyalgia rheumatica, polymyositis, however they feel it is fairly unlikely as patient's symptoms are much more diffuse rather than focal, not concentrating on particular muscle groups -Patient is willing to participate in physical therapy Status: Acute (23) Anemia: -Hemoglobin is down to 9.2, no overt signs of bleeding -Add Protonix 40 twice daily -Likely secondary to renal failure, possibly Zyvox -We will continue to monitor Status: Acute (24) Gout flare: -Given patient's persistently elevated leukocytosis, and elevated uric acids, complaints of generalized pain, and started on a prednisone high dose for gouty flare -His pain has improved to some degree, leukocytosis improved uric acid levels are coming down -We will hold off on allopurinol Status: Acute Additional A&P Information Dvt ppx: Heparin Patient is a DNR/DNI Dispo: Pending on patient's physical therapy progress, either home or detention, 6 weeks IV antibiotics Plan for today, start physical therapy, will manage pain Attestations Medical Necessity Statement*: Patient requires hospitalization for vertebral osteomyelitis, acute renal failure, ischemic hepatitis, gouty flare, deconditioning, depression Coding Level of Care 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 Diagnoses Vertebral osteomyelitis M46.20 Acute renal failure N17.9 RLL pneumonia J18.9 Hypertension I10 Diastolic CHF I50.30 Gout M10.9 Bilateral lower extremity edema R60.0 Morbid obesity with BMI of 60.0-69.9, adult E66.01; Z68.44 Difficulty in walking R26.2 Bilateral primary osteoarthritis of hip M16.0 HLD (hyperlipidemia) E78.5 Unable to ambulate R26.2 Intractable pain R52 Sepsis A41.9 DRESS syndrome D72.12; T50.905A Encephalopathy G93.40 Rhabdomyolysis M62.82 Hyperuricemia E79.0 Transaminitis R74.01 Ischemic hepatitis K75.9 Depression F32.9 Generalized weakness R53.1 Anemia D64.9 Gout flare M10.9
[2020-08-26 17:06] LABS: Glucose Point of Care 136 mg/dL (70-110)
[2020-08-26 21:23] LABS: Glucose Point of Care 161 mg/dL (70-110)
[2020-08-27] VITALS (10 sets, daily range): BP systolic 147–177; BP diastolic 70–81; PULSE 75–91; RESP 16–18; TEMP 36.3–36.8; O2SAT 94–98
[2020-08-27 04:48] LABS: Basophils % 0.1 %; Hemoglobin 9.1 g/dL (11.7-16.6); Lymphocytes # 0.7 10^3/uL (0.8-4.8); Lymphocytes % 8.3 %; Mean Corpuscular HGB Conc 31.4 g/dL (30.0-36.0); Mean Corpuscular Hemoglobin 27.8 pg (28.0-34.0); Mean Corpuscular Volume 88.7 fL (80-94); Mean Platelet Volume 10.3 fL (7.4-10.4); Monocytes # 0.9 10^3/uL (0.2-0.9); Monocytes % 10.1 %; Neutrophils # 6.92 10^3/uL (1.8-7.7); Neutrophils % 80.7 %; Nucleated Red Blood Cells % 0 %; Platelet Count 150 10^3/cmm (130-400); Red Blood Count 3.27 10^6/uL (4.1-5.3); Red Cell Distribution Width 15.8 % (12.1-15.1); White Blood Count 8.6 10^3/uL (4.0-10.0)
[2020-08-27 05:07] LABS: Alanine Aminotransferase 194 U/L (0-41); Albumin Level 2.7 g/dL (3.5-5.2); Alkaline Phosphatase 187 IU/L (40-130); Anion Gap 17.3 (5-19); Aspartate Amino Transferase 92 U/L (0-40); Calcium 8.5 mg/dL (8.5-10.5); Carbon Dioxide 23 mmol/L (22-29); Chloride 101 mmol/L (98-107); Creatine Phosphokinase 28 U/L (39-308); Globulin 2.9 g/dL (1.3-4.6); Glucose 116 mg/dL (65-115); Magnesium 2.2 mg/dL (1.7-2.3); Osmolality Calculated 313 mOsm/kg (285-295); Potassium 4.3 mmol/L (3.5-5.1); Sodium 137 mmol/L (136-145); Total Bilirubin 0.5 mg/dL (0.15-1.2); Total Protein 5.6 g/dL (6.6-8.7); Uric Acid 11.5 mg/dL (3.4-7.0)
[2020-08-27] MEDS: HYDROcodone-acetaminophen 7.5-325 mg Tablet 1 TAB PO ×2 (05:45→20:28)
[2020-08-27] MEDS: heparin 5,000 unit/mL INJ 1 mL 5000 UNIT SUBCUT ×2 (05:45→18:14)
[2020-08-27] MEDS: linezolid 600 mg Tablet PO ×2 (05:45→18:14)
[2020-08-27 06:16] LABS: Blood Urea Nitrogen 91 mg/dL (8-23)
--- NOTE | 2020-08-27 06:46 | P.PN_ITS ---
Subjective Subjective: Interval history: No new complaints Medications: Reviewed: Yes Vitals/I&O/Wt Last Vital Signs Temp 97.4 F L 08/27/20 04:00 Pulse 84 08/27/20 06:00 Resp 16 08/27/20 04:00 BP 161/74 08/27/20 04:00 Pulse Ox 97 08/27/20 04:00 08/26/20 08/26/20 08/27/20 14:59 22:59 06:59 Intake Total 1240 / 1240 300 / 1540 Output Total 800 / 800 1100 / 1900 750 / 2650 Balance 440 / 440 -1100 / -660 -450 / -1110 Physical Exam Const: COMMON NORMALS: no acute distress and alert GENERAL APPEARANCE: cooperative Neck/C-Spine: OTHER: tunneled right IJ HD catheter Neuro: SENSORIUM/ORIENTATION: Yes alert Urinary Catheter Management^: Flowers: Cath Placed During This Visit: yes, but has since been removed by the nurse Reason for Continuing Indwelling Catheter: Acute Urinary Retention or Obstruction Urinary Catheter Date of Insertion: 08/05/20 Urinary Catheter Time of Insertion: 15:00 Date Urinary Catheter Removed: 08/09/20 Time Urinary Catheter Discontinued: 05:45 Data : 08/27/20 04:23 08/27/20 04:23 Other Labs: uric acid 11.5, albumin 2.7, vanessa Ca 9.5, phos 5 Micro: Microbiology 08/23/20 10:17 Urine Culture - Final Urine,Clean Catch Katherine albicans 08/20/20 18:40 Blood Culture - Final Blood NO GROWTH AFTER 5 DAYS 08/20/20 05:52 Blood Culture - Final Blood NO GROWTH AFTER 5 DAYS A&P Additional A&P Information 1. Acute kidney injury, nonoliguric, serum creatinine improving, high BUN partially related to steroids. No indications for dialysis at this time 2. Osteomyelitis/sepsis 3. Morbid obesity 4. Hyperuricemia, withholding allopurinol due to LFT abnormalities 5. Anemia - Hb stable 6. Hypertension Recommend: If creatinine continues to improve, remove tunneled HD catheter prior to discharge. Can reduce renvela to 1600 mg with meals, begin amlodipine 5 mg daily. 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
[2020-08-27 07:26] LABS: Glucose Point of Care 105 mg/dL (70-110)
[2020-08-27] MEDS: sevelamer 800 mg Tablet 1600 MG PO ×3 (08:59→18:47)
[2020-08-27] MEDS: pantoprazole DR 40 mg Tablet PO ×2 (09:00→20:25)
[2020-08-27] MEDS: fluoxetine 20 mg Capsule PO (09:00)
[2020-08-27] MEDS: fluconazole 100 mg Tablet 200 MG PO (09:00)
[2020-08-27] MEDS: docusate sodium 100 mg Capsule PO ×2 (09:00→18:14)
[2020-08-27] MEDS: ciprofloxacin 500 mg Tablet 250 MG PO (09:00)
[2020-08-27] MEDS: amlodipine 5 mg Tablet PO (09:00)
[2020-08-27] MEDS: predniSONE 20 mg Tablet 80 MG PO (09:01)
[2020-08-27] MEDS: nystatin powder 15 gm Btl 1 APPLIC TOPICAL ×2 (09:01→18:14)
--- NOTE | 2020-08-27 10:45 | PC.SOCIAL ---
IMM Update Pg. 2 of IMM updated with patient. Copy provided.
[2020-08-27 12:51] LABS: Glucose Point of Care 104 mg/dL (70-110)
--- NOTE | 2020-08-27 15:44 | P.PN_ITS ---
Subjective Subjective: Interval history: Patient is happy with the progress that he is making, he is much more cheery this morning, he tells me that his pain is well controlled, he is agreeable to work with physical therapy, he has robust urine output, no fevers overnight, no chest pain, no shortness of breath Medications: Reviewed: Yes Medication Review Details: Current Medications Acetaminophen (Acetaminophen 325 Mg Tablet) 650 mg PO Q6H PRN PRN Reason: MILD PAIN Last Admin: 08/24/20 12:29 Dose: 650 mg Documented by: Bisacodyl (Bisacodyl 5 Mg Tablet) 10 mg PO DAILY PRN PRN Reason: CONSTIPATION Ciprofloxacin HCl (Ciprofloxacin 500 Mg Tablet) 250 mg PO DAILY [facility]; Protocol Last Admin: 08/24/20 08:21 Dose: 250 mg Documented by: Dextrose (Dextrose 50% Syringe 50 Ml) 25 ml IVP ONCE PRN; Protocol PRN Reason: hypoglycemia protocol Dextrose (Dextrose 50% Syringe 50 Ml) 50 ml IVP PRN PRN; Protocol PRN Reason: hypoglycemia protocol Dextrose (Dextrose 50% Syringe 50 Ml) 25 ml IVP ONCE PRN; Protocol PRN Reason: hypoglycemia protocol Dextrose (Dextrose 50% Syringe 50 Ml) 50 ml IVP PRN PRN; Protocol PRN Reason: hypoglycemia protocol Fluoxetine HCl (Fluoxetine 20 Mg Capsule) 20 mg PO DAILY [facility] Last Admin: 08/24/20 08:20 Dose: 20 mg Documented by: Glucagon (Glucagon 1 Mg/Ml Inj 1 Ml) 1 mg IM ONCE PRN; Protocol PRN Reason: Adult Acute Hypoglycemia Prot. Glucagon (Glucagon 1 Mg/Ml Inj 1 Ml) 1 mg IM ONCE PRN; Protocol PRN Reason: Adult Acute Hypoglycemia Prot. Haloperidol Lactate (Haloperidol Inj 5 Mg/Ml Inj 1 Ml) 1 mg IM Q4H PRN PRN Reason: AGITATION Heparin Sodium (Beef Lung) (Heparin 5,000 Unit/Ml Inj 1 Ml) 5,000 unit SUBCUT Q12H [facility] Last Admin: 08/25/20 06:03 Dose: 5,000 unit Documented by: Dextrose (D5w) 500 mls @ 100 mls/hr IV ONCE PRN; Protocol PRN Reason: Adult Acute Hypoglycemia Prot Dextrose (D5w) 500 mls @ 100 mls/hr IV ONCE PRN; Protocol PRN Reason: Adult Acute Hypoglycemia Prot Albumin Human (Albumin) 12.5 gm in 50 mls @ 60 mls/hr IV PRN PRN PRN Reason: Hypotension and/or symptomatic Last Infusion: 08/15/20 18:09 Dose: Infused Documented by: Albumin Human (Albumin) 12.5 gm in 50 mls @ 60 mls/hr IV PRN PRN PRN Reason: Hypotension and/or symptomatic Insulin Aspart (Insulin Aspart 100 Unit/1 Ml) 0 unit SUBCUT TIDWM [facility]; Protocol Last Admin: 08/24/20 17:55 Dose: 2 unit Documented by: Linezolid (Linezolid 600 Mg Tablet) 600 mg PO Q12H [facility]; Protocol Last Admin: 08/25/20 06:03 Dose: 600 mg Documented by: Methylphenidate HCl (Methylphenidate 10 Mg Tablet) 5 mg PO BID [facility] Last Admin: 08/24/20 17:33 Dose: 5 mg Documented by: Nystatin (Nystatin Powder 15 Gm Btl) 1 applic TOPICAL BID [facility] Last Admin: 08/24/20 17:30 Dose: 1 applic Documented by: Ondansetron HCl (Ondansetron 2 Mg/Ml Sdv 2 Ml) 4 mg IVP Q8H PRN PRN Reason: vomiting, or N/V if npo Pantoprazole Sodium (Pantoprazole Dr 40 Mg Tablet) 40 mg PO Q12H [facility] Last Admin: 08/24/20 21:58 Dose: 40 mg Documented by: Prednisone (Prednisone 20 Mg Tablet) 80 mg PO DAILY [facility] Last Admin: 08/24/20 08:19 Dose: 80 mg Documented by: Sevelamer Carbonate (Sevelamer 800 Mg Tablet) 2,400 mg PO TIDWM [facility] Last Admin: 08/24/20 17:30 Dose: 2,400 mg Documented by: Vitals/I&O/Wt Last Vital Signs Temp 98.3 F 08/27/20 11:31 Pulse 87 08/27/20 14:00 Resp 17 08/27/20 11:31 BP 147/76 08/27/20 11:31 Pulse Ox 96 08/27/20 11:31 08/27/20 08/27/20 08/27/20 06:59 14:59 22:59 Intake Total 300 / 1540 240 / 240 Output Total 750 / 2650 1000 / 1000 Balance -450 / -1110 -760 / -760 Physical Exam Narrative: EXAM NARRATIVE: Morbidly obese male Large pannus Const: COMMON NORMALS: no acute distress and patient oriented x3 HENMT: COMMON NORMALS: normocephalic HEAD & SCALP: normocephalic Neck/C-Spine: COMMON NORMALS: no JVD Resp: COMMON NORMALS: normal respiratory effort, No retractions, No use of accessory muscles and clear to auscultation bilaterally AUSCULTATION: clear to auscultation bilaterally Cardio: COMMON NORMALS: no JVD, regular rate, regular rhythm, S1 normal heart sound present and S2 normal heart sound present RATE: regular rate RHYTHM: regular rhythm HEART SOUNDS: S1 normal heart sound present and S2 normal heart sound present GI: COMMON NORMALS: Normal to inspection, nondistended, normoactive bowel sounds present, Soft to palpation, non-tender, No hepatosplenomegaly present, no masses and no bruits PALPATION: Yes Soft to palpation and Yes No hepatosplenomegaly present Extremity: COMMON NORMALS: capillary refill normal, no clubbing, cyanosis or edema, no calf tenderness and no pedal edema NARRATIVE EXTREMITY EXAM: Diffuse anasarca Neuro: COMMON NORMALS: patient oriented x3 Psych: COMMON NORMALS: mental status grossly normal Skin: NARRATIVE SKIN EXAM: Right chest, dialysis catheter in place, no surrounding erythema, swelling, tenderness Urinary Catheter Management^: Flowers: Cath Placed During This Visit: yes, but has since been removed by the nurse Reason for Continuing Indwelling Catheter: Acute Urinary Retention or Obstruction Urinary Catheter Date of Insertion: 08/05/20 Urinary Catheter Time of Insertion: 15:00 Date Urinary Catheter Removed: 08/09/20 Time Urinary Catheter Discontinued: 05:45 Data : 08/27/20 04:23 08/27/20 04:23 Micro: Microbiology 08/23/20 10:17 Urine Culture - Final Urine,Clean Catch Katherine albicans A&P Assessment and plan (1) Vertebral osteomyelitis: -With sepsis, resolved -CT of abdomen pelvis shows:Lytic changes in the L3 and L4 vertebral bodies without adjacent inflammation. Indolent vertebral body osteomyelitis, metastatic disease or degenerative cystic changes in the vertebral bodies. -CT-of the cervical spine does not show any significant osteomyelitis -I went over CT scan findings with Dr. Cuellar, she feels that changes in vertebral bodies are likely related to osteomyelitis -Unfortunately patient cannot have a MRI given his body habitus -Unfortunately cannot perform a tagged white blood cell scan as he cannot fit in the machine -Unfortunate patient cannot have a CT-guided biopsy, due to his body habitus, difficulty accessing site -White blood cell count 9.1, ESR greater than 112 (Likely related to body hab itus) -Blood pressure normotensive, afebrile, saturating in the high 90s on room air -Lactic acid within normal limits -Inflammatory markers improving -Persistent leukocytosis, neutrophilic likely secondary to prednisone, infectious disease advised to continue antibiotic therapy continue to monitor cultures -Right-sided tunneled dialysis catheter looks clean and dry -All blood cultures have been unremarkable -UA shows yeast species Plan: -Continue neurochecks -Continue bariatric bed -Needs to get up out of bed into bariatric chair, agrees to physical therapy -After speaking with infectious disease patient has been transitioned to p.o. Zyvox and Cipro for at least 6 weeks -Fluconazole for yeast UTI -Monitor clinical progress -DNR/DNI -Heparin for DVT prophylaxis -Patient was updated -Discussed with PT OT, to do physical therapy in bariatric chair Status: Acute (2) Acute renal failure: -Etiology multifactorial's rhabdomyolysis and/or sepsis and or drug reaction and/or dress syndrome -Has not received any NSAIDs, is on lisinopril hydrochlorthiazide which has been held -Was on Lasix therapy -He does have a allergy to cephalexin, allergy unknown, patient is unsure what the allergy is, could he possibly have dress syndrome, however does not have significant eosinophilia on CBC -We will hold allopurinol as associate with dress syndrome,, Denis Diogo syndrome -CPK and uric acid are trending down -CT scan of the abdomen pelvis does not show any significant obstructive uropathy, or kidney stone, but it was a difficult study -Urine output 2850 Plan: -Right tunneled dialysis catheter in place, placed by Dr. Chino -Nephrology on consult -Urine studies no eosinophils seen -Peripheral smear toxic granulations, no eosinophils -Trend CPK and uric acids, improving -Urine output has improved, -Dialysis catheter placement placement to right femoral vein -On Renvela, sodium bicarb -Nephrology consult Status: Acute (3) RLL pneumonia: Initially on chest x-ray patient was noted to have right lower lobe pneumonia for which she received treatment with ceftriaxone and azithromycin. Currently on Zyvox and Cipro CT chest negative for consolidative process, afebrile, on room air Status: Acute (4) Hypertension: -Hold Norvasc to 10 mg daily -Discontinue lisinopril given creatinine increase -This is currently well controlled Status: Inactive (5) Diastolic CHF: -Cardiac echocardiogram shows EF of 55%, no regional wall motion abnormalities, poor quality study -d/c lasix , monitor urine output closely, Flowers catheter Status: Acute (6) Gout: Allopurinol on hold for possible dress syndrome Given his generalized pain complaints, and elevated uric acid, he was started on prednisone 80 mg daily Status: Acute (7) Bilateral lower extremity edema: Minimal today Status: Acute (8) Morbid obesity with BMI of 60.0-69.9, adult: Needs to follow-up with bariatric clinic, needs to be motivated to lose weight Status: Acute (9) Difficulty in walking: PT OT, however states unable to participate due to weakness Status: Acute (10) Bilateral primary osteoarthritis of hip: PT OT, pain control Status: Acute (11) HLD (hyperlipidemia): Continue simvastatin Status: Acute (12) Unable to ambulate: PT OT Status: Acute (13) Intractable pain: -Has some calf pain bilaterally, lower extremity Doppler negative for DVT Status: Acute (14) Sepsis: Status: Acute (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 -From allopurinol versus ceftriaxone -With transaminitis, acute renal failure, multiorgan dysfunction, I cannot see a rash -W receiving prednisone Status: Acute (16) Encephalopathy: -Continues to have some episodes of confusion, alert to person, place, not to time, follows all commands, cranial nerves II to XII grossly intact -ABG did not show any significant hypoxia or hypercarbia -Continue BiPAP overnight -Unlikely to be meningitis, no neck pain, no neck stiffness -Neurochecks -Patient does have significant uremia, resolved -Septic encephalopathy, resolved -We will continue to monitor -Alert oriented x3, refuses CT scan, will hold off, no focal neurologic deficits Status: Acute (17) Rhabdomyolysis: -Etiology of rhabdomyolysis is uncertain, patient has been immobile, in bed, been laying on his back, area vertebral osteomyelitis as a possible etiology -Certainly compartment syndrome could be an etiology, but unlikely - CT of his pelvis did show severe left hip osteoarthritis, no significant evidence of compartment syndrome Status: Acute (18) Hyperuricemia: Status: Acute (19) Transaminitis: Improving Status: Acute (20) Ischemic hepatitis: -LFTs have stabilized -Alk phos 184 -Ammonia 26 -INR 1.20 -GGT 330 -Total bili 0.8 -Acute hepatitis panel negative, HIV panel negative -Tylenol level negative -LOUIE, CMV, VZV, EBV pending, drug screen pending -CT scan of the abdomen pelvis with contrast liver unremarkable, gallbladder unremarkable, pancreas unremarkable, no biliary ductal dilatation -Right upper quadrant ultrasound shows hepatomegaly with diffuse fatty infiltration -Patient does have hypotensive episodes during dialysis, -Ischemic hepatitis likely secondary to sepsis, and hypotensive episodes during dialysis Plan: -Goal is to minimize hypotension -Minimize low blood pressures during dialysis -I have stopped all blood pressure medications -Continue to trend LFTs Status: Acute (21) Depression: -Continue Prozac - Ritalin 5 mg twice daily, to stimulate him a bit, monitor heart rates -I have consulted psychiatry Status: Acute (22) Generalized weakness: -I did discuss the case with rheumatology, to evaluate for possible polymyalgia rheumatica, polymyositis, however they feel it is fairly unlikely as patient's symptoms are much more diffuse rather than focal, not concentrating on particular muscle groups -Patient is willing to participate in physical therapy Status: Acute (23) Anemia: -Hemoglobin is down to 9.1, no overt signs of bleeding -Add Protonix 40 twice daily -Likely secondary to renal failure, possibly Zyvox -We will continue to monitor Status: Acute (24) Gout flare: -Given patient's persistently elevated leukocytosis, and elevated uric acids, complaints of generalized pain, and started on a prednisone high dose for gouty flare -His pain has improved to some degree, leukocytosis improved uric acid levels are coming down -We will hold off on allopurinol Status: Acute Additional A&P Information Dvt ppx: Heparin Patient is a DNR/DNI Dispo: Pending on patient's physical therapy progress, either home or [facility], 6 weeks IV antibiotics Plan for today, start physical therapy, will manage pain Attestations Medical Necessity Statement*: Patient requires hospitalization for vertebral osteomyelitis, acute renal failure, anemia, ischemic hepatitis Coding Level of Care Code Acute Program Evaluator for [facility] Diagnoses Vertebral osteomyelitis M46.20 Acute renal failure N17.9 RLL pneumonia J18.9 Hypertension I10 Diastolic CHF I50.30 Gout M10.9 Bilateral lower extremity edema R60.0 Morbid obesity with BMI of 60.0-69.9, adult E66.01; Z68.44 Difficulty in walking R26.2 Bilateral primary osteoarthritis of hip M16.0 HLD (hyperlipidemia) E78.5 Unable to ambulate R26.2 Intractable pain R52 Sepsis A41.9 DRESS syndrome D72.12; T50.905A Encephalopathy G93.40 Rhabdomyolysis M62.82 Hyperuricemia E79.0 Transaminitis R74.01 Ischemic hepatitis K75.9 Depression F32.9 Generalized weakness R53.1 Anemia D64.9 Gout flare M10.9
[2020-08-27 17:35] LABS: Glucose Point of Care 153 mg/dL (70-110)
--- NOTE | 2020-08-27 18:48 | PC.NURSE ---
Report to Jovon GIBSON
[2020-08-27 20:52] LABS: Glucose Point of Care 159 mg/dL (70-110)
[2020-08-28] VITALS (12 sets, daily range): BP systolic 140–176; BP diastolic 49–91; PULSE 69–95; RESP 17–20; TEMP 36.6–37.7; O2SAT 97–100
[2020-08-28] MEDS: heparin 5,000 unit/mL INJ 1 mL 5000 UNIT SUBCUT ×2 (04:22→17:58)
[2020-08-28 05:17] LABS: Hematocrit 31.4 % (42.0-52.0); Hemoglobin 9.7 g/dL (11.7-16.6); Lymphocytes # 0.8 10^3/uL (0.8-4.8); Lymphocytes % 10.5 %; Mean Corpuscular HGB Conc 30.9 g/dL (30.0-36.0); Mean Corpuscular Hemoglobin 28.4 pg (28.0-34.0); Mean Corpuscular Volume 91.8 fL (80-94); Mean Platelet Volume 11.6 fL (7.4-10.4); Monocytes # 0.7 10^3/uL (0.2-0.9); Monocytes % 9.4 %; Neutrophils # 5.74 10^3/uL (1.8-7.7); Neutrophils % 79.3 %; Nucleated Red Blood Cells % 0 %; Platelet Count 230 10^3/cmm (130-400); Red Blood Count 3.42 10^6/uL (4.1-5.3); Red Cell Distribution Width 15.8 % (12.1-15.1); White Blood Count 7.2 10^3/uL (4.0-10.0)
[2020-08-28] MEDS: linezolid 600 mg Tablet PO ×2 (05:20→17:57)
--- NOTE | 2020-08-28 06:35 | NUR.SHIFT ---
Patient mainly slept. When given medications the patient would admin and hold the water himself.
[2020-08-28 07:07] LABS: Glucose Point of Care 91 mg/dL (70-110)
--- NOTE | 2020-08-28 08:03 | P.PN_ITS ---
Subjective Subjective: Interval history: feels better. excellent uop. no n/v/f/c/deluna/d Medications: Reviewed: Yes Medication Review Details: Current Medications Acetaminophen (Acetaminophen 325 Mg Tablet) 650 mg PO Q6H PRN PRN Reason: MILD PAIN Last Admin: 08/24/20 12:29 Dose: 650 mg Documented by: Hydrocodone Bitart/Acetaminophen (Hydrocodone-Acetaminophen 7.5-325 Mg Tablet) 1 tab PO Q4H PRN PRN Reason: MODERATE PAIN Last Admin: 08/27/20 20:28 Dose: 1 tab Documented by: Amlodipine Besylate (Amlodipine 5 Mg Tablet) 5 mg PO DAILY [facility] Last Admin: 08/27/20 09:00 Dose: 5 mg Documented by: Bisacodyl (Bisacodyl 5 Mg Tablet) 10 mg PO DAILY PRN PRN Reason: CONSTIPATION Ciprofloxacin HCl (Ciprofloxacin 500 Mg Tablet) 250 mg PO DAILY [facility]; Protocol Last Admin: 08/27/20 09:00 Dose: 250 mg Documented by: Dextrose (Dextrose 50% Syringe 50 Ml) 25 ml IVP ONCE PRN; Protocol PRN Reason: hypoglycemia protocol Dextrose (Dextrose 50% Syringe 50 Ml) 50 ml IVP PRN PRN; Protocol PRN Reason: hypoglycemia protocol Dextrose (Dextrose 50% Syringe 50 Ml) 25 ml IVP ONCE PRN; Protocol PRN Reason: hypoglycemia protocol Dextrose (Dextrose 50% Syringe 50 Ml) 50 ml IVP PRN PRN; Protocol PRN Reason: hypoglycemia protocol Docusate Sodium (Docusate Sodium 100 Mg Capsule) 100 mg PO BID [facility] Last Admin: 08/27/20 18:14 Dose: 100 mg Documented by: Fluconazole (Fluconazole 100 Mg Tablet) 200 mg PO DAILY [facility] Last Admin: 08/27/20 09:00 Dose: 200 mg Documented by: Fluoxetine HCl (Fluoxetine 20 Mg Capsule) 20 mg PO DAILY [facility] Last Admin: 08/27/20 09:00 Dose: 20 mg Documented by: Glucagon (Glucagon 1 Mg/Ml Inj 1 Ml) 1 mg IM ONCE PRN; Protocol PRN Reason: Adult Acute Hypoglycemia Prot. Glucagon (Glucagon 1 Mg/Ml Inj 1 Ml) 1 mg IM ONCE PRN; Protocol PRN Reason: Adult Acute Hypoglycemia Prot. Haloperidol Lactate (Haloperidol Inj 5 Mg/Ml Inj 1 Ml) 1 mg IM Q4H PRN PRN Reason: AGITATION Heparin Sodium (Beef Lung) (Heparin 5,000 Unit/Ml Inj 1 Ml) 5,000 unit SUBCUT Q12H [facility] Last Admin: 08/28/20 04:22 Dose: 5,000 unit Documented by: Dextrose (D5w) 500 mls @ 100 mls/hr IV ONCE PRN; Protocol PRN Reason: Adult Acute Hypoglycemia Prot Dextrose (D5w) 500 mls @ 100 mls/hr IV ONCE PRN; Protocol PRN Reason: Adult Acute Hypoglycemia Prot Albumin Human (Albumin) 12.5 gm in 50 mls @ 60 mls/hr IV PRN PRN PRN Reason: Hypotension and/or symptomatic Last Infusion: 08/15/20 18:09 Dose: Infused Documented by: Albumin Human (Albumin) 12.5 gm in 50 mls @ 60 mls/hr IV PRN PRN PRN Reason: Hypotension and/or symptomatic Insulin Aspart (Insulin Aspart 100 Unit/1 Ml) 0 unit SUBCUT TIDWM [facility]; Protocol Last Admin: 08/27/20 18:14 Dose: 2 unit Documented by: Linezolid (Linezolid 600 Mg Tablet) 600 mg PO Q12H [facility]; Protocol Last Admin: 08/28/20 05:20 Dose: 600 mg Documented by: Nystatin (Nystatin Powder 15 Gm Btl) 1 applic TOPICAL BID [facility] Last Admin: 08/27/20 18:14 Dose: 1 applic Documented by: Ondansetron HCl (Ondansetron 2 Mg/Ml Sdv 2 Ml) 4 mg IVP Q8H PRN PRN Reason: vomiting, or N/V if npo Pantoprazole Sodium (Pantoprazole Dr 40 Mg Tablet) 40 mg PO Q12H [facility] Last Admin: 08/27/20 20:25 Dose: 40 mg Documented by: Polyethylene Glycol (Polyethylene Glycol 3350 Pkt 17 Gm) 17 gm PO DAILY [facility] Last Admin: 08/27/20 09:07 Dose: Not Given Documented by: Prednisone (Prednisone 20 Mg Tablet) 80 mg PO DAILY [facility] Last Admin: 08/27/20 09:01 Dose: 80 mg Documented by: Sevelamer Carbonate (Sevelamer 800 Mg Tablet) 1,600 mg PO TIDWM [facility] Last Admin: 08/27/20 18:47 Dose: 1,600 mg Documented by: Vitals/I&O/Wt Last Vital Signs Temp 98.0 F 08/28/20 07:11 Pulse 95 01/10/21 07:11 Resp 18 08/28/20 07:11 BP 176/49 08/28/20 07:11 Pulse Ox 99 08/28/20 07:11 08/27/20 08/28/20 08/28/20 22:59 06:59 14:59 Intake Total 240 / 480 Output Total 999 / 1999 1375 / 3375 Balance -760 / -1520 -1375 / -2895 Physical Exam Narrative: EXAM NARRATIVE: obese man in bed, comfortable, NARD VS noted heent- nc/at, eomi neck no jvp lungs- good air movement b/l Rt ACW dialysis catheter heart reg,no rub abd soft, nt, nd, +BS + vera ext b/l edema improved neuro- moves, a,a, o x 3 Urinary Catheter Management^: Vera: Cath Placed During This Visit: yes, but has since been removed by the nurse Reason for Continuing Indwelling Catheter: Accurate Measurement of Urinary Output in Critically Ill Patients Urinary Catheter Date of Insertion: 08/05/20 Urinary Catheter Time of Insertion: 15:00 Date Urinary Catheter Removed: 08/09/20 Time Urinary Catheter Discontinued: 05:45 Data : 08/28/20 04:55 08/27/20 04:23 A&P Additional A&P Information 1. Acute kidney injury, nonoliguric, serum creatinine improving, high BUN partially related to steroids and high uop. No indications for dialysis at this time -if cr improving- PLEASE DC DIALYSIS CATHETER -adjust phos binders based on phos level 2. Osteomyelitis - renal dose abx 3. Morbid obesity 4. Hyperuricemia, withholding allopurinol due to LFT abnormalities 5. Anemia - improving 6. Hypertension -norvasc 5 d, add toprol xl 50 d 7. RLL pna- zyvox and cipro per medicine 8. DM- glucose control per medicine 9. inc lfts- likely shocked liver . Attestations Medical Necessity Statement*: jakob, pna, inc lfts Time Spent in Patient Care: 16 - 35 minutes Coding Level of Care Code Acute Traffic Coordinator for Corrie Ordonez
[2020-08-28] MEDS: fluconazole 100 mg Tablet 200 MG PO (08:42)
[2020-08-28] MEDS: predniSONE 20 mg Tablet 40 MG PO (08:42)
[2020-08-28] MEDS: docusate sodium 100 mg Capsule PO ×2 (08:42→17:58)
[2020-08-28] MEDS: ciprofloxacin 500 mg Tablet 250 MG PO (08:43)
[2020-08-28] MEDS: sevelamer 800 mg Tablet 1600 MG PO ×3 (08:43→17:58)
[2020-08-28] MEDS: amlodipine 5 mg Tablet PO (08:44)
[2020-08-28] MEDS: nystatin powder 15 gm Btl 1 APPLIC TOPICAL ×2 (08:44→17:58)
[2020-08-28] MEDS: fluoxetine 20 mg Capsule PO (08:44)
[2020-08-28] MEDS: pantoprazole DR 40 mg Tablet PO ×2 (08:44→21:47)
--- NOTE | 2020-08-28 09:00 | PC.NURSE ---
Verbal order received from Dr. Ferrari that is is okay to leave the Flowers Catheter in until tomorrow.
[2020-08-28 11:15] LABS: Glucose Point of Care 95 mg/dL (70-110)
--- NOTE | 2020-08-28 11:27 | P.PN_ITS ---
Subjective Subjective: Interval history: This morning patient was examined, he is much more alert, awake, much more cheery, he met his friend yesterday, he is waiting tonight for the [employer] game, unfortunately his bariatric bed is broken, will get him a new bed, he needs to continue physical therapy, he has the motivation now to get up out of bed, will have physical therapy work with Medications: Medication Review Details: Current Medications Acetaminophen (Acetaminophen 325 Mg Tablet) 650 mg PO Q6H PRN PRN Reason: MILD PAIN Last Admin: 08/24/20 12:29 Dose: 650 mg Documented by: Hydrocodone Bitart/Acetaminophen (Hydrocodone-Acetaminophen 7.5-325 Mg Tablet) 1 tab PO Q4H PRN PRN Reason: MODERATE PAIN Last Admin: 08/27/20 20:28 Dose: 1 tab Documented by: Amlodipine Besylate (Amlodipine 5 Mg Tablet) 5 mg PO DAILY [facility] Last Admin: 08/27/20 09:00 Dose: 5 mg Documented by: Bisacodyl (Bisacodyl 5 Mg Tablet) 10 mg PO DAILY PRN PRN Reason: CONSTIPATION Ciprofloxacin HCl (Ciprofloxacin 500 Mg Tablet) 250 mg PO DAILY [facility]; Protocol Last Admin: 08/27/20 09:00 Dose: 250 mg Documented by: Dextrose (Dextrose 50% Syringe 50 Ml) 25 ml IVP ONCE PRN; Protocol PRN Reason: hypoglycemia protocol Dextrose (Dextrose 50% Syringe 50 Ml) 50 ml IVP PRN PRN; Protocol PRN Reason: hypoglycemia protocol Dextrose (Dextrose 50% Syringe 50 Ml) 25 ml IVP ONCE PRN; Protocol PRN Reason: hypoglycemia protocol Dextrose (Dextrose 50% Syringe 50 Ml) 50 ml IVP PRN PRN; Protocol PRN Reason: hypoglycemia protocol Docusate Sodium (Docusate Sodium 100 Mg Capsule) 100 mg PO BID [facility] Last Admin: 08/27/20 18:14 Dose: 100 mg Documented by: Fluconazole (Fluconazole 100 Mg Tablet) 200 mg PO DAILY [facility] Last Admin: 08/27/20 09:00 Dose: 200 mg Documented by: Fluoxetine HCl (Fluoxetine 20 Mg Capsule) 20 mg PO DAILY [facility] Last Admin: 08/27/20 09:00 Dose: 20 mg Documented by: Glucagon (Glucagon 1 Mg/Ml Inj 1 Ml) 1 mg IM ONCE PRN; Protocol PRN Reason: Adult Acute Hypoglycemia Prot. Glucagon (Glucagon 1 Mg/Ml Inj 1 Ml) 1 mg IM ONCE PRN; Protocol PRN Reason: Adult Acute Hypoglycemia Prot. Haloperidol Lactate (Haloperidol Inj 5 Mg/Ml Inj 1 Ml) 1 mg IM Q4H PRN PRN Reason: AGITATION Heparin Sodium (Beef Lung) (Heparin 5,000 Unit/Ml Inj 1 Ml) 5,000 unit SUBCUT Q12H [facility] Last Admin: 08/28/20 04:22 Dose: 5,000 unit Documented by: Dextrose (D5w) 500 mls @ 100 mls/hr IV ONCE PRN; Protocol PRN Reason: Adult Acute Hypoglycemia Prot Dextrose (D5w) 500 mls @ 100 mls/hr IV ONCE PRN; Protocol PRN Reason: Adult Acute Hypoglycemia Prot Albumin Human (Albumin) 12.5 gm in 50 mls @ 60 mls/hr IV PRN PRN PRN Reason: Hypotension and/or symptomatic Last Infusion: 08/15/20 18:09 Dose: Infused Documented by: Albumin Human (Albumin) 12.5 gm in 50 mls @ 60 mls/hr IV PRN PRN PRN Reason: Hypotension and/or symptomatic Insulin Aspart (Insulin Aspart 100 Unit/1 Ml) 0 unit SUBCUT TIDWM [facility]; Protocol Last Admin: 08/27/20 18:14 Dose: 2 unit Documented by: Linezolid (Linezolid 600 Mg Tablet) 600 mg PO Q12H [facility]; Protocol Last Admin: 08/28/20 05:20 Dose: 600 mg Documented by: Nystatin (Nystatin Powder 15 Gm Btl) 1 applic TOPICAL BID [facility] Last Admin: 08/27/20 18:14 Dose: 1 applic Documented by: Ondansetron HCl (Ondansetron 2 Mg/Ml Sdv 2 Ml) 4 mg IVP Q8H PRN PRN Reason: vomiting, or N/V if npo Pantoprazole Sodium (Pantoprazole Dr 40 Mg Tablet) 40 mg PO Q12H [facility] Last Admin: 08/27/20 20:25 Dose: 40 mg Documented by: Polyethylene Glycol (Polyethylene Glycol 3350 Pkt 17 Gm) 17 gm PO DAILY [facility] Last Admin: 08/27/20 09:07 Dose: Not Given Documented by: Prednisone (Prednisone 20 Mg Tablet) 80 mg PO DAILY [facility] Last Admin: 08/27/20 09:01 Dose: 80 mg Documented by: Sevelamer Carbonate (Sevelamer 800 Mg Tablet) 1,600 mg PO TIDWM [facility] Last Admin: 08/27/20 18:47 Dose: 1,600 mg Documented by: Vitals/I&O/Wt Last Vital Signs Temp 97.8 F 08/28/20 10:34 Pulse 85 08/28/20 10:34 Resp 18 08/28/20 10:34 BP 161/73 08/28/20 10:34 Pulse Ox 98 08/28/20 10:34 08/27/20 08/28/20 08/28/20 22:59 06:59 14:59 Intake Total 240 / 480 Output Total 999 / 1999 1375 / 3375 Balance -760 / -1520 -1375 / -2895 Physical Exam Narrative: EXAM NARRATIVE: Large pannus, morbidly obese Const: COMMON NORMALS: no acute distress and patient oriented x3 HENMT: COMMON NORMALS: normocephalic HEAD & SCALP: normocephalic Neck/C-Spine: COMMON NORMALS: no JVD Resp: COMMON NORMALS: normal respiratory effort, No retractions, No use of accessory muscles and clear to auscultation bilaterally AUSCULTATION: clear to auscultation bilaterally Cardio: COMMON NORMALS: no JVD, regular rate, regular rhythm, S1 normal heart sound present and S2 normal heart sound present RATE: regular rate RHYTHM: regular rhythm HEART SOUNDS: S1 normal heart sound present and S2 normal heart sound present GI: COMMON NORMALS: Normal to inspection, nondistended, normoactive bowel sounds present, Soft to palpation, non-tender, No hepatosplenomegaly present, no masses and no bruits PALPATION: Yes Soft to palpation and Yes No hepatosplenomegaly present Extremity: COMMON NORMALS: capillary refill normal, no clubbing, cyanosis or edema, no calf tenderness and no pedal edema Neuro: COMMON NORMALS: patient oriented x3 Psych: COMMON NORMALS: mental status grossly normal Urinary Catheter Management^: Flowers: Cath Placed During This Visit: yes, but has since been removed by the nurse Reason for Continuing Indwelling Catheter: Accurate Measurement of Urinary Out put in Critically Ill Patients Urinary Catheter Date of Insertion: 08/05/20 Urinary Catheter Time of Insertion: 15:00 Date Urinary Catheter Removed: 08/09/20 Time Urinary Catheter Discontinued: 05:45 Data : 08/28/20 04:55 08/27/20 04:23 A&P Assessment and plan (1) Vertebral osteomyelitis: -With sepsis, resolved -CT of abdomen pelvis shows:Lytic changes in the L3 and L4 vertebral bodies without adjacent inflammation. Indolent vertebral body osteomyelitis, metastatic disease or degenerative cystic changes in the vertebral bodies. -CT-of the cervical spine does not show any significant osteomyelitis -I went over CT scan findings with Dr. Cuellar, she feels that changes in vertebral bodies are likely related to osteomyelitis -Unfortunately patient cannot have a MRI given his body habitus -Unfortunately cannot perform a tagged white blood cell scan as he cannot fit in the machine -Unfortunate patient cannot have a CT-guided biopsy, due to his body habitus, difficulty accessing site -White blood cell count 9.1, ESR greater than 112 (Likely related to body habitus) -Blood pressure normotensive, afebrile, saturating in the high 90s on room air -Lactic acid within normal limits -Inflammatory markers improving -Persistent leukocytosis, neutrophilic likely secondary to prednisone, infectious disease advised to continue antibiotic therapy continue to monitor cultures -Right-sided tunneled dialysis catheter looks clean and dry -All blood cultures have been unremarkable -UA shows yeast species Plan: -Continue neurochecks -Continue bariatric bed -Needs to get up out of bed into bariatric chair, agrees to physical therapy -After speaking with infectious disease patient has been transitioned to p.o. Zyvox and Cipro for at least 6 weeks -Fluconazole for yeast UTI -Monitor clinical progress -DNR/DNI -Heparin for DVT prophylaxis -Patient was updated -Discussed with PT OT, to do physical therapy in bariatric chair Status: Acute (2) Acute renal failure: -Etiology multifactorial's rhabdomyolysis and/or sepsis and or drug reaction and/or dress syndrome -Has not received any NSAIDs, is on lisinopril hydrochlorthiazide which has been held -Was on Lasix therapy -He does have a allergy to cephalexin, allergy unknown, patient is unsure what the allergy is, could he possibly have dress syndrome, however does not have significant eosinophilia on CBC -We will hold allopurinol as associate with dress syndrome,, Denis Diogo syndrome -CPK and uric acid are trending down -CT scan of the abdomen pelvis does not show any significant obstructive uropathy, or kidney stone, but it was a difficult study -Urine output over 3 L Plan: -Right tunneled dialysis catheter in place, placed by Dr. Chino, if creatinine continues to improve will remove dialysis catheter in the next 48 hours -Nephrology on consult -Urine studies no eosinophils seen -Peripheral smear toxic granulations, no eosinophils -Trend CPK and uric acids, improving -Urine output has improved, -Dialysis catheter placement placement to right femoral vein -On Renvela, sodium bicarb -Nephrology consult Status: Acute (3) RLL pneumonia: Initially on chest x-ray patient was noted to have right lower lobe pneumonia for which she received treatment with ceftriaxone and azithromycin. Currently on Zyvox and Cipro CT chest negative for consolidative process, afebrile, on room air Status: Acute (4) Hypertension: -Hold Norvasc to 10 mg daily -Discontinue lisinopril given creatinine increase -This is currently well controlled Status: Inactive (5) Diastolic CHF: -Cardiac echocardiogram shows EF of 55%, no regional wall motion abnormalities, poor quality study -d/c lasix , monitor urine output closely, Flowers catheter Status: Acute (6) Gout: Allopurinol on hold for possible dress syndrome Given his generalized pain complaints, and elevated uric acid, he was started on prednisone 80 mg daily Status: Acute (7) Bilateral lower extremity edema: Minimal today Status: Acute (8) Morbid obesity with BMI of 60.0-69.9, adult: Needs to follow-up with bariatric clinic, needs to be motivated to lose weight Status: Acute (9) Difficulty in walking: PT OT, however states unable to participate due to weakness Status: Acute (10) Bilateral primary osteoarthritis of hip: PT OT, pain control Status: Acute (11) HLD (hyperlipidemia): Continue simvastatin Status: Acute (12) Unable to ambulate: PT OT Status: Acute (13) Intractable pain: -Has some calf pain bilaterally, lower extremity Doppler negative for DVT Status: Acute (14) Sepsis: Status: Acute (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 -From allopurinol versus ceftriaxone -With transaminitis, acute renal failure, multiorgan dysfunction, I cannot see a rash -W receiving prednisone Status: Acute (16) Encephalopathy: -Continues to have some episodes of confusion, alert to person, place, not to time, follows all commands, cranial nerves II to XII grossly intact -ABG did not show any significant hypoxia or hypercarbia -Continue BiPAP overnight -Unlikely to be meningitis, no neck pain, no neck stiffness -Neurochecks -Patient does have significant uremia, resolved -Septic encephalopathy, resolved -We will continue to monitor -Alert oriented x3, refuses CT scan, will hold off, no focal neurologic deficits Status: Acute (17) Rhabdomyolysis: -Etiology of rhabdomyolysis is uncertain, patient has been immobile, in bed, been laying on his back, area vertebral osteomyelitis as a possible etiology -Certainly compartment syndrome could be an etiology, but unlikely - CT of his pelvis did show severe left hip osteoarthritis, no significant evidence of compartment syndrome Status: Acute (18) Hyperuricemia: Status: Acute (19) Transaminitis: Improving Status: Acute (20) Ischemic hepatitis: -LFTs have stabilized -Alk phos 184 -Ammonia 26 -INR 1.20 -GGT 330 -Total bili 0.8 -Acute hepatitis panel negative, HIV panel negative -Tylenol level negative -LOUIE, CMV, VZV, EBV pending, drug screen pending -CT scan of the abdomen pelvis with contrast liver unremarkable, gallbladder unremarkable, pancreas unremarkable, no biliary ductal dilatation -Right upper quadrant ultrasound shows hepatomegaly with diffuse fatty infi ltration -Patient does have hypotensive episodes during dialysis, -Ischemic hepatitis likely secondary to sepsis, and hypotensive episodes during dialysis Plan: -Goal is to minimize hypotension -Minimize low blood pressures during dialysis -I have stopped all blood pressure medications -Continue to trend LFTs Status: Acute (21) Depression: -Continue Prozac - Ritalin 5 mg twice daily, to stimulate him a bit, monitor heart rates -I have consulted psychiatry Status: Acute (22) Generalized weakness: -I did discuss the case with rheumatology, to evaluate for possible polymyalgia rheumatica, polymyositis, however they feel it is fairly unlikely as patient's symptoms are much more diffuse rather than focal, not concentrating on particular muscle groups -Patient is willing to participate in physical therapy Status: Acute (23) Anemia: -Hemoglobin is down to 9.1, no overt signs of bleeding -Add Protonix 40 twice daily -Likely secondary to renal failure, possibly Zyvox -We will continue to monitor Status: Acute (24) Gout flare: -Given patient's persistently elevated leukocytosis, and elevated uric acids, complaints of generalized pain, and started on a prednisone high dose for gouty flare -His pain has improved to some degree, leukocytosis improved uric acid levels are coming down -We will hold off on allopurinol Status: Acute Additional A&P Information Dvt ppx: Heparin Patient is a DNR/DNI Dispo: Pending on patient's physical therapy progress, either home or detention, change out bariatric bed Plan for today, start physical therapy, will manage pain Attestations Medical Necessity Statement*: Patient cards hospitalization for vertebral osteomyelitis, acute renal failure, shock liver, deconditioning, hopefully discharge in the next 48 hours Coding Level of Care Code Acute Site Leasing Agent for g Fwd Diagnoses Vertebral osteomyelitis M46.20 Acute renal failure N17.9 RLL pneumonia J18.9 Hypertension I10 Diastolic CHF I50.30 Gout M10.9 Bilateral lower extremity edema R60.0 Morbid obesity with BMI of 60.0-69.9, adult E66.01; Z68.44 Difficulty in walking R26.2 Bilateral primary osteoarthritis of hip M16.0 HLD (hyperlipidemia) E78.5 Unable to ambulate R26.2 Intractable pain R52 Sepsis A41.9 DRESS syndrome D72.12; T50.905A Encephalopathy G93.40 Rhabdomyolysis M62.82 Hyperuricemia E79.0 Transaminitis R74.01 Ischemic hepatitis K75.9 Depression F32.9 Generalized weakness R53.1 Anemia D64.9 Gout flare M10.9
[2020-08-28] MEDS: HYDROcodone-acetaminophen 7.5-325 mg Tablet 1 TAB PO ×2 (12:08→21:48)
[2020-08-28 14:23] LABS: Oxygen Device RA
[2020-08-28 17:29] LABS: Glucose Point of Care 178 mg/dL (70-110)
[2020-08-28 18:52] LABS: Alanine Aminotransferase 253 U/L (0-41); Albumin Level 2.9 g/dL (3.5-5.2); Alkaline Phosphatase 221 IU/L (40-130); Aspartate Amino Transferase 120 U/L (0-40); Blood Urea Nitrogen 77 mg/dL (8-23); Calcium 8.9 mg/dL (8.5-10.5); Carbon Dioxide 23 mmol/L (22-29); Chloride 105 mmol/L (98-107); Creatine Phosphokinase 30 U/L (39-308); Globulin 2.9 g/dL (1.3-4.6); Glomerular Filtration Rate 31.8 mL/min (90-130); Glucose 178 mg/dL (65-115); Magnesium 2.1 mg/dL (1.7-2.3); Osmolality Calculated 317 mOsm/kg (285-295); Phosphorus 3.5 mg/dL (2.5-4.5); Sodium 140 mmol/L (136-145); Total Bilirubin 0.4 mg/dL (0.15-1.2); Total Protein 5.8 g/dL (6.6-8.7); Uric Acid 10.6 mg/dL (3.4-7.0)
[2020-08-28 21:36] LABS: Glucose Point of Care 129 mg/dL (70-110)
[2020-08-29] VITALS (11 sets, daily range): BP systolic 135–168; BP diastolic 74–86; PULSE 76–102; RESP 18–20; TEMP 36.5–37.1; O2SAT 96–100
[2020-08-29 04:38] LABS: Basophils % 0.1 %; Eosinophils # 0.1 10^3/uL (0.0-0.8); Eosinophils % 0.6 %; Hematocrit 31.4 % (42.0-52.0); Hemoglobin 9.7 g/dL (11.7-16.6); Lymphocytes # 1.1 10^3/uL (0.8-4.8); Lymphocytes % 12.9 %; Mean Corpuscular HGB Conc 30.9 g/dL (30.0-36.0); Mean Corpuscular Hemoglobin 28.2 pg (28.0-34.0); Mean Corpuscular Volume 91.3 fL (80-94); Monocytes # 0.7 10^3/uL (0.2-0.9); Monocytes % 7.9 %; Neutrophils # 6.51 10^3/uL (1.8-7.7); Neutrophils % 77.9 %; Nucleated Red Blood Cells % 0 %; Platelet Count 135 10^3/cmm (130-400); Red Blood Count 3.44 10^6/uL (4.1-5.3); White Blood Count 8.4 10^3/uL (4.0-10.0)
[2020-08-29 05:04] LABS: Alanine Aminotransferase 229 U/L (0-41); Albumin Level 2.9 g/dL (3.5-5.2); Alkaline Phosphatase 198 IU/L (40-130); Anion Gap 14.5 (5-19); Aspartate Amino Transferase 98 U/L (0-40); Blood Urea Nitrogen 72 mg/dL (8-23); Calcium 8.8 mg/dL (8.5-10.5); Carbon Dioxide 25 mmol/L (22-29); Chloride 107 mmol/L (98-107); Globulin 2.7 g/dL (1.3-4.6); Glomerular Filtration Rate 37.9 mL/min (90-130); Glucose 100 mg/dL (65-115); Osmolality Calculated 315 mOsm/kg (285-295); Phosphorus 3.4 mg/dL (2.5-4.5); Potassium 4.5 mmol/L (3.5-5.1); Sodium 142 mmol/L (136-145); Total Bilirubin 0.6 mg/dL (0.15-1.2); Total Protein 5.6 g/dL (6.6-8.7)
[2020-08-29] MEDS: linezolid 600 mg Tablet PO ×2 (05:54→18:03)
[2020-08-29] MEDS: heparin 5,000 unit/mL INJ 1 mL 5000 UNIT SUBCUT ×2 (05:54→18:01)
[2020-08-29 07:05] LABS: Glucose Point of Care 91 mg/dL (70-110)
[2020-08-29] MEDS: sevelamer 800 mg Tablet 1600 MG PO (09:06)
[2020-08-29] MEDS: fluconazole 100 mg Tablet 200 MG PO (09:06)
[2020-08-29] MEDS: predniSONE 20 mg Tablet 40 MG PO (09:06)
[2020-08-29] MEDS: ciprofloxacin 500 mg Tablet 250 MG PO (09:07)
[2020-08-29] MEDS: fluoxetine 20 mg Capsule PO (09:07)
[2020-08-29] MEDS: docusate sodium 100 mg Capsule PO ×2 (09:07→18:01)
[2020-08-29] MEDS: amlodipine 5 mg Tablet PO (09:07)
[2020-08-29] MEDS: pantoprazole DR 40 mg Tablet PO ×2 (09:07→20:29)
[2020-08-29] MEDS: nystatin powder 15 gm Btl 1 APPLIC TOPICAL ×2 (09:07→18:02)
[2020-08-29] MEDS: polyethylene glycol 3350 Pkt 17 gm PO (09:07)
--- NOTE | 2020-08-29 09:52 | PM.PN ---
Subjective Subjective: Interval history: feels better. still easily winded, + edema. got up w/ PT Medications: Reviewed: Yes Medication Review Details: Current Medications Acetaminophen (Acetaminophen 325 Mg Tablet) 650 mg PO Q6H PRN PRN Reason: MILD PAIN Last Admin: 08/24/20 12:29 Dose: 650 mg Documented by: Hydrocodone Bitart/Acetaminophen (Hydrocodone-Acetaminophen 7.5-325 Mg Tablet) 1 tab PO Q4H PRN PRN Reason: MODERATE PAIN Last Admin: 08/28/20 21:48 Dose: 1 tab Documented by: Amlodipine Besylate (Amlodipine 5 Mg Tablet) 5 mg PO DAILY [facility] Last Admin: 08/29/20 09:07 Dose: 5 mg Documented by: Bisacodyl (Bisacodyl 5 Mg Tablet) 10 mg PO DAILY PRN PRN Reason: CONSTIPATION Ciprofloxacin HCl (Ciprofloxacin 500 Mg Tablet) 250 mg PO DAILY [facility]; Protocol Last Admin: 08/29/20 09:07 Dose: 250 mg Documented by: Dextrose (Dextrose 50% Syringe 50 Ml) 25 ml IVP ONCE PRN; Protocol PRN Reason: hypoglycemia protocol Dextrose (Dextrose 50% Syringe 50 Ml) 50 ml IVP PRN PRN; Protocol PRN Reason: hypoglycemia protocol Dextrose (Dextrose 50% Syringe 50 Ml) 25 ml IVP ONCE PRN; Protocol PRN Reason: hypoglycemia protocol Dextrose (Dextrose 50% Syringe 50 Ml) 50 ml IVP PRN PRN; Protocol PRN Reason: hypoglycemia protocol Docusate Sodium (Docusate Sodium 100 Mg Capsule) 100 mg PO BID [facility] [place] Last Admin: 08/29/20 09:07 Dose: 100 mg Documented by: Fluconazole (Fluconazole 100 Mg Tablet) 200 mg PO DAILY [facility] [place] Last Admin: 08/29/20 09:06 Dose: 200 mg Documented by: Fluoxetine HCl (Fluoxetine 20 Mg Capsule) 20 mg PO DAILY [facility] [place] Last Admin: 08/29/20 09:07 Dose: 20 mg Documented by: Glucagon (Glucagon 1 Mg/Ml Inj 1 Ml) 1 mg IM ONCE PRN; Protocol PRN Reason: Adult Acute Hypoglycemia Prot. Glucagon (Glucagon 1 Mg/Ml Inj 1 Ml) 1 mg IM ONCE PRN; Protocol PRN Reason: Adult Acute Hypoglycemia Prot. Haloperidol Lactate (Haloperidol Inj 5 Mg/Ml Inj 1 Ml) 1 mg IM Q4H PRN PRN Reason: AGITATION Heparin Sodium (Beef Lung) (Heparin 5,000 Unit/Ml Inj 1 Ml) 5,000 unit SUBCUT Q12H [facility] Last Admin: 08/29/20 05:54 Dose: 5,000 unit Documented by: Dextrose (D5w) 500 mls @ 100 mls/hr IV ONCE PRN; Protocol PRN Reason: Adult Acute Hypoglycemia Prot Dextrose (D5w) 500 mls @ 100 mls/hr IV ONCE PRN; Protocol PRN Reason: Adult Acute Hypoglycemia Prot Albumin Human (Albumin) 12.5 gm in 50 mls @ 60 mls/hr IV PRN PRN PRN Reason: Hypotension and/or symptomatic Last Infusion: 08/15/20 18:09 Dose: Infused Documented by: Albumin Human (Albumin) 12.5 gm in 50 mls @ 60 mls/hr IV PRN PRN PRN Reason: Hypotension and/or symptomatic Insulin Aspart (Insulin Aspart 100 Unit/1 Ml) 0 unit SUBCUT TIDWM [facility]; Protocol Last Admin: 08/29/20 09:07 Dose: Not Given Documented by: Linezolid (Linezolid 600 Mg Tablet) 600 mg PO Q12H [facility]; Protocol Last Admin: 08/29/20 05:54 Dose: 600 mg Documented by: Nystatin (Nystatin Powder 15 Gm Btl) 1 applic TOPICAL BID [facility] [place] Last Admin: 08/29/20 09:07 Dose: 1 applic Documented by: Ondansetron HCl (Ondansetron 2 Mg/Ml Sdv 2 Ml) 4 mg IVP Q8H PRN PRN Reason: vomiting, or N/V if npo Pantoprazole Sodium (Pantoprazole Dr 40 Mg Tablet) 40 mg PO Q12H [facility] Last Admin: 08/29/20 09:07 Dose: 40 mg Documented by: Polyethylene Glycol (Polyethylene Glycol 3350 Pkt 17 Gm) 17 gm PO DAILY [facility] Last Admin: 08/29/20 09:07 Dose: 17 gm Documented by: Prednisone (Prednisone 20 Mg Tablet) 40 mg PO DAILY [facility] [place] Last Admin: 08/29/20 09:06 Dose: 40 mg Documented by: Sevelamer Carbonate (Sevelamer 800 Mg Tablet) 1,600 mg PO TIDWM [facility] Last Admin: 08/29/20 09:06 Dose: 1,600 mg Documented by: Vitals/I&O/Wt Last Vital Signs Temp 98.5 F 01/11/21 07:14 Pulse 102 H 08/29/20 09:45 Resp 18 08/29/20 09:45 BP 167/81 08/29/20 07:14 Pulse Ox 100 08/29/20 09:45 08/28/20 08/29/20 08/29/20 22:59 06:59 14:59 Output Total 300 / 1600 1100 / 2700 Balance -300 / -1300 -1100 / -2400 Physical Exam Narrative: EXAM NARRATIVE: obese man in bed, comfortable, NARD VS noted heent- nc/at, eomi neck no jvp lungs- good air movement b/l Rt ACW dialysis catheter heart reg,no rub abd soft, nt, nd, +BS + vera ext b/l edema in legs neuro- moves, a,a, o x 3 Urinary Catheter Management^: Evra: Cath Placed During This Visit: yes, but has since been removed by the nurse Reason for Continuing Indwelling Catheter: Assist Healing of Perineal & Sacral Wounds- Incontinent Patients Urinary Catheter Date of Insertion: 08/05/20 Urinary Catheter Time of Insertion: 15:00 Date Urinary Catheter Removed: 08/09/20 Time Urinary Catheter Discontinued: 05:45 Data : 08/29/20 04:28 08/29/20 04:28 A&P Additional A&P Information 1. Acute kidney injury, nonoliguric, serum creatinine improving, high BUN partially related to steroids and high uop. No indications for dialysis at this time -if cr improving- PLEASE DC DIALYSIS CATHETER -d/c phos binders, and monitor phos levels 2. Osteomyelitis - renal dose abx 3. Morbid obesity 4. Hyperuricemia, withholding allopurinol due to LFT abnormalities 5. Anemia - improving 6. Hypertension -norvasc 5 d, add toprol xl 50 d 7. RLL pna- zyvox and cipro per medicine 8. DM- glucose control per medicine 9. inc lfts- likely shocked liver -improving please remove dialysis catheter. renal will see prn . Attestations Medical Necessity Statement*: per hospitalist Time Spent in Patient Care: 16 - 35 minutes Coding Level of Care Code Acute [place] Layer for Corrie Ordonez
[2020-08-29 11:10] LABS: Glucose Point of Care 112 mg/dL (70-110)
--- NOTE | 2020-08-29 11:24 | PC.SOCIAL ---
IMM UPDATE Pg 2 IMM update. Copy provided to pt.
--- NOTE | 2020-08-29 11:41 | PM.PN ---
Subjective Medications: Reviewed: Yes Medication Review Details: Current Medications Acetaminophen (Acetaminophen 325 Mg Tablet) 650 mg PO Q6H PRN PRN Reason: MILD PAIN Last Admin: 08/24/20 12:29 Dose: 650 mg Documented by: Hydrocodone Bitart/Acetaminophen (Hydrocodone-Acetaminophen 7.5-325 Mg Tablet) 1 tab PO Q4H PRN PRN Reason: MODERATE PAIN Last Admin: 08/28/20 21:48 Dose: 1 tab Documented by: Amlodipine Besylate (Amlodipine 5 Mg Tablet) 5 mg PO DAILY REPLACED BY [facility] Last Admin: 08/29/20 09:07 Dose: 5 mg Documented by: Bisacodyl (Bisacodyl 5 Mg Tablet) 10 mg PO DAILY PRN PRN Reason: CONSTIPATION Ciprofloxacin HCl (Ciprofloxacin 500 Mg Tablet) 250 mg PO DAILY REPLACED BY [facility]; Protocol Last Admin: 08/29/20 09:07 Dose: 250 mg Documented by: Dextrose (Dextrose 50% Syringe 50 Ml) 25 ml IVP ONCE PRN; Protocol PRN Reason: hypoglycemia protocol Dextrose (Dextrose 50% Syringe 50 Ml) 50 ml IVP PRN PRN; Protocol PRN Reason: hypoglycemia protocol Dextrose (Dextrose 50% Syringe 50 Ml) 25 ml IVP ONCE PRN; Protocol PRN Reason: hypoglycemia protocol Dextrose (Dextrose 50% Syringe 50 Ml) 50 ml IVP PRN PRN; Protocol PRN Reason: hypoglycemia protocol Docusate Sodium (Docusate Sodium 100 Mg Capsule) 100 mg PO BID REPLACED BY [facility] Last Admin: 08/29/20 09:07 Dose: 100 mg Documented by: Fluconazole (Fluconazole 100 Mg Tablet) 200 mg PO DAILY REPLACED BY [facility] Last Admin: 08/29/20 09:06 Dose: 200 mg Documented by: Fluoxetine HCl (Fluoxetine 20 Mg Capsule) 20 mg PO DAILY REPLACED BY [facility] Last Admin: 08/29/20 09:07 Dose: 20 mg Documented by: Glucagon (Glucagon 1 Mg/Ml Inj 1 Ml) 1 mg IM ONCE PRN; Protocol PRN Reason: Adult Acute Hypoglycemia Prot. Glucagon (Glucagon 1 Mg/Ml Inj 1 Ml) 1 mg IM ONCE PRN; Protocol PRN Reason: Adult Acute Hypoglycemia Prot. Haloperidol Lactate (Haloperidol Inj 5 Mg/Ml Inj 1 Ml) 1 mg IM Q4H PRN PRN Reason: AGITATION Heparin Sodium (Beef Lung) (Heparin 5,000 Unit/Ml Inj 1 Ml) 5,000 unit SUBCUT Q12H REPLACED BY [facility] Last Admin: 08/29/20 05:54 Dose: 5,000 unit Documented by: Dextrose (D5w) 500 mls @ 100 mls/hr IV ONCE PRN; Protocol PRN Reason: Adult Acute Hypoglycemia Prot Dextrose (D5w) 500 mls @ 100 mls/hr IV ONCE PRN; Protocol PRN Reason: Adult Acute Hypoglycemia Prot Albumin Human (Albumin) 12.5 gm in 50 mls @ 60 mls/hr IV PRN PRN PRN Reason: Hypotension and/or symptomatic Last Infusion: 08/15/20 18:09 Dose: Infused Documented by: Albumin Human (Albumin) 12.5 gm in 50 mls @ 60 mls/hr IV PRN PRN PRN Reason: Hypotension and/or symptomatic Insulin Aspart (Insulin Aspart 100 Unit/1 Ml) 0 unit SUBCUT TIDWM REPLACED BY [facility]; Protocol Last Admin: 08/29/20 09:07 Dose: Not Given Documented by: Linezolid (Linezolid 600 Mg Tablet) 600 mg PO Q12H REPLACED BY [facility]; Protocol Last Admin: 08/29/20 05:54 Dose: 600 mg Documented by: Nystatin (Nystatin Powder 15 Gm Btl) 1 applic TOPICAL BID REPLACED BY [facility] Last Admin: 08/29/20 09:07 Dose: 1 applic Documented by: Ondansetron HCl (Ondansetron 2 Mg/Ml Sdv 2 Ml) 4 mg IVP Q8H PRN PRN Reason: vomiting, or N/V if npo Pantoprazole Sodium (Pantoprazole Dr 40 Mg Tablet) 40 mg PO Q12H REPLACED BY [facility] Last Admin: 08/29/20 09:07 Dose: 40 mg Documented by: Polyethylene Glycol (Polyethylene Glycol 3350 Pkt 17 Gm) 17 gm PO DAILY INA Last Admin: 08/29/20 09:07 Dose: 17 gm Documented by: Prednisone (Prednisone 20 Mg Tablet) 40 mg PO DAILY REPLACED BY [facility] Last Admin: 08/29/20 09:06 Dose: 40 mg Documented by: Sevelamer Carbonate (Sevelamer 800 Mg Tablet) 1,600 mg PO TIDWM REPLACED BY [facility] Last Admin: 08/29/20 09:06 Dose: 1,600 mg Documented by: Vitals/I&O/Wt Last Vital Signs Temp 98.6 F 08/29/20 11:26 Pulse 94 08/29/20 11:26 Resp 18 08/29/20 11:26 BP 135/86 08/29/20 11:26 Pulse Ox 96 08/29/20 11:26 08/28/20 08/29/20 08/29/20 22:59 06:59 14:59 Output Total 300 / 1600 1100 / 2700 Balance -300 / -1300 -1100 / -2400 Physical Exam Narrative: EXAM NARRATIVE: Large pannus, morbidly obese Const: COMMON NORMALS: no acute distress and patient oriented x3 HENMT: COMMON NORMALS: normocephalic HEAD & SCALP: normocephalic Neck/C-Spine: COMMON NORMALS: no JVD Resp: COMMON NORMALS: normal respiratory effort, No retractions, No use of accessory muscles and clear to auscultation bilaterally AUSCULTATION: clear to auscultation bilaterally Cardio: COMMON NORMALS: no JVD, regular rate, regular rhythm, S1 normal heart sound present and S2 normal heart sound present RATE: regular rate RHYTHM: regular rhythm HEART SOUNDS: S1 normal heart sound present and S2 normal heart sound present GI: COMMON NORMALS: Normal to inspection, nondistended, normoactive bowel sounds present, Soft to palpation, non-tender, No hepatosplenomegaly present, no masses and no bruits PALPATION: Yes Soft to palpation and Yes No hepatosplenomegaly present Extremity: COMMON NORMALS: capillary refill normal, no clubbing, cyanosis or edema, no calf tenderness and no pedal edema Neuro: COMMON NORMALS: patient oriented x3 Psych: COMMON NORMALS: mental status grossly normal Skin: NARRATIVE SKIN EXAM: Right chest, dialysis catheter in place, no surrounding erythema, swelling, tenderness Urinary Catheter Management^: Flowers: Cath Placed During This Visit: yes, but has since been removed by the nurse Reason for Continuing Indwelling Catheter: Assist Healing of Perineal & Sacral Wounds- Incontinent Patients Urinary Catheter Date of Insertion: 08/05/20 Urinary Catheter Time of Insertion: 15:00 Date Urinary Catheter Removed: 08/09/20 Time Urinary Catheter Discontinued: 05:45 Data : 08/29/20 04:28 08/29/20 04:28 A&P Assessment and plan (1) Vertebral osteomyelitis: -With sepsis, resolved -CT of abdomen pelvis shows:Lytic changes in the L3 and L4 vertebral bodies without adjacent inflammation. Indolent vertebral body osteomyelitis, metastatic disease or degenerative cystic changes in the vertebral bodies. -CT-of the cervical spine does not show any significant osteomyelitis -I went over CT scan findings with Dr. Cuellar, she feels that changes in vertebral bodies are likely related to osteomyelitis -Unfortunately patient cannot have a MRI given his body habitus -Unfortunately cannot perform a tagged white blood cell scan as he cannot fit in the machine -Unfortunate patient cannot have a CT-guided biopsy, due to his body habitus, difficulty accessing site -White blood cell count 9.1, ESR greater than 112 (Likely related to body habitus) -Blood pressure normotensive, afebrile, saturating in the high 90s on room air -Lactic acid within normal limits -Inflammatory markers improving -Persistent leukocytosis, neutrophilic likely secondary to prednisone, infectious disease advised to continue antibiotic therapy continue to monitor cultures -Right-sided tunneled dialysis catheter looks clean and dry -All blood cultures have been unremarkable -UA shows yeast species Plan: -Continue neurochecks -Continue bariatric bed -Needs to get up out of bed into bariatric chair, agrees to physical therapy -After speaking with infectious disease patient has been transitioned to p.o. Zyvox and Cipro for at least 6 weeks -Fluconazole for yeast UTI -Monitor clinical progress -DNR/DNI -Heparin for DVT prophylaxis -Patient was updated -Discussed with PT OT, to do physical therapy in bariatric chair Status: Acute (2) Acute renal failure: -Etiology multifactorial's rhabdomyolysis and/or sepsis and or drug reaction and/or dress syndrome -Has not received any NSAIDs, is on lisinopril hydrochlorthiazide which has been held -Was on Lasix therapy -He does have a allergy to cephalexin, allergy unknown, patient is unsure what the allergy is, could he possibly have dress syndrome, however does not have significant eosinophilia on CBC -We will hold allopurinol as associate with dress syndrome,, Denis Diogo syndrome -CPK and uric acid are trending down -CT scan of the abdomen pelvis does not show any significant obstructive uropathy, or kidney stone, but it was a difficult study -Urine output over 3 L Plan: -Right tunneled dialysis catheter in place, placed by Dr. Chino, nephrology okay to dc dialysis catheter -Nephrology on consult -Urine studies no eosinophils seen -Peripheral smear toxic granulations, no eosinophils -Trend CPK and uric acids, improving -Urine output has improved, -Dialysis catheter placement placement to right femoral vein -On Renvela, sodium bicarb -Nephrology consult Status: Acute (3) RLL pneumonia: Initially on chest x-ray patient was noted to have right lower lobe pneumonia for which she received treatment with ceftriaxone and azithromycin. Currently on Zyvox and Cipro CT chest negative for consolidative process, afebrile, on room air Status: Acute (4) Hypertension: -Hold Norvasc to 10 mg daily -Discontinue lisinopril given creatinine increase -This is currently well controlled Status: Inactive (5) Diastolic CHF: -Cardiac echocardiogram shows EF of 55%, no regional wall motion abnormalities, poor quality study -d/c lasix , monitor urine output closely, Flowers catheter Status: Acute (6) Gout: Allopurinol on hold for possible dress syndrome Given his generalized pain complaints, and elevated uric acid, he was started on prednisone 80 mg daily Status: Acute (7) Bilateral lower extremity edema: Minimal today Status: Acute (8) Morbid obesity with BMI of 60.0-69.9, adult: Needs to follow-up with bariatric clinic, needs to be motivated to lose weight Status: Acute (9) Difficulty in walking: PT OT, however states unable to participate due to weakness Status: Acute (10) Bilateral primary osteoarthritis of hip: PT OT, pain control Status: Acute (11) HLD (hyperlipidemia): Continue simvastatin Status: Acute (12) Unable to ambulate: PT OT Status: Acute (13) Intractable pain: -Has some calf pain bilaterally, lower extremity Doppler negative for DVT Status: Acute (14) Sepsis: Status: Acute (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 -From allopurinol versus ceftriaxone -With transaminitis, acute renal failure, multiorgan dysfunction, I cannot see a rash -W receiving prednisone Status: Acute (16) Encephalopathy: -Continues to have some episodes of confusion, alert to person, place, not to time, follows all commands, cranial nerves II to XII grossly intact -ABG did not show any significant hypoxia or hypercarbia -Continue BiPAP overnight -Unlikely to be meningitis, no neck pain, no neck stiffness -Neurochecks -Patient does have significant uremia, resolved -Septic encephalopathy, resolved -We will continue to monitor -Alert oriented x3, Status: Acute (17) Rhabdomyolysis: -Etiology of rhabdomyolysis is uncertain, patient has been immobile, in bed, been laying on his back, area vertebral osteomyelitis as a possible etiology -Certainly compartment syndrome could be an etiology, but unlikely - CT of his pelvis did show severe left hip osteoarthritis, no significant evidence of compartment syndrome Status: Acute (18) Hyperuricemia: Status: Acute (19) Transaminitis: Improving Status: Acute (20) Ischemic hepatitis: -LFTs have stabilized -Alk phos 184 -Ammonia 26 -INR 1.20 -GGT 330 -Total bili 0.8 -Acute hepatitis panel negative, HIV panel negative -Tylenol level negative -LOUIE, CMV, VZV, EBV pending, drug screen pending -CT scan of the abdomen pelvis with contrast liver unremarkable, gallbladder unremarkable, pancreas unremarkable, no biliary ductal dilatation -Right upper quadrant ultrasound shows hepatomegaly with diffuse fatty infiltration -Patient does have hypotensive episodes during dialysis, -Ischemic hepatitis likely secondary to sepsis, and hypotensive episodes during dialysis Plan: -Goal is to minimize hypotension -Minimize low blood pressures during dialysis -I have stopped all blood pressure medications -Continue to trend LFTs Status: Acute (21) Depression: -Continue Prozac - Ritalin 5 mg twice daily, to stimulate him a bit, monitor heart rates -I have consulted psychiatry Status: Acute (22) Generalized weakness: -I did discuss the case with rheumatology, to evaluate for possible polymyalgia rheumatica, polymyositis, however they feel it is fairly unlikely as patient's symptoms are much more diffuse rather than focal, not concentrating on particular muscle groups -Patient is willing to participate in physical therapy Status: Acute (23) Anemia: -Hemoglobin is down to 9.7, no overt signs of bleeding -Add Protonix 40 twice daily -Likely secondary to renal failure, possibly Zyvox -We will continue to monitor Status: Acute (24) Gout flare: -Given patient's persistently elevated leukocytosis, and elevated uric acids, complaints of generalized pain, and started on a prednisone high dose for gouty flare -His pain has improved to some degree, leukocytosis improved uric acid levels are coming down -We will hold off on allopurinol Status: Acute Additional A&P Information Dvt ppx: Heparin Patient is a DNR/DNI Dispo: Pending on patient's physical therapy progress, either home or longterm, change out bariatric bed Plan for today, start physical therapy, will manage pain, dc in 24-48hours in home vs snf Attestations Medical Necessity Statement*: Patient requires hospitalization for acute renal failure, vertebral osteomyelitis, ischemic hepatitis, depression, anxiety, severe deconditioning, likely discharge next 24 to 48 hours Coding Level of Care Code Acute Mining Engineering Technologist for Chg Fwd Diagnoses Vertebral osteomyelitis M46.20 Acute renal failure N17.9 RLL pneumonia J18.9 Hypertension I10 Diastolic CHF I50.30 Gout M10.9 Bilateral lower extremity edema R60.0 Morbid obesity with BMI of 60.0-69.9, adult E66.01; Z68.44 Difficulty in walking R26.2 Bilateral primary osteoarthritis of hip M16.0 HLD (hyperlipidemia) E78.5 Unable to ambulate R26.2 Intractable pain R52 Sepsis A41.9 DRESS syndrome D72.12; T50.905A Encephalopathy G93.40 Rhabdomyolysis M62.82 Hyperuricemia E79.0 Transaminitis R74.01 Ischemic hepatitis K75.9 Depression F32.9 Generalized weakness R53.1 Anemia D64.9 Gout flare M10.9
[2020-08-29] MEDS: sevelamer 800 mg Tablet PO ×2 (14:09→18:01)
[2020-08-29] MEDS: HYDROcodone-acetaminophen 7.5-325 mg Tablet 1 TAB PO (14:09)
--- NOTE | 2020-08-29 15:59 | P.PN_ITS ---
Subjective Subjective: Interval history: Was notified today that the patient is ready to have his tunneled dialysis catheter removed. The patient said it has been at least a week and a half since this has been used. Vitals/I&O/Wt Last Vital Signs Temp 97.7 F 08/29/20 15:19 Pulse 92 08/29/20 15:19 Resp 18 08/29/20 15:19 BP 142/74 08/29/20 15:19 Pulse Ox 97 08/29/20 15:19 08/29/20 08/29/20 08/29/20 06:59 14:59 22:59 Output Total 1100 / 2700 Balance -1100 / -2400 Physical Exam Narrative: EXAM NARRATIVE: The dialysis catheter site is unremarkable. Urinary Catheter Management^: Flowers: Cath Placed During This Visit: yes, but has since been removed by the nurse Reason for Continuing Indwelling Catheter: Assist Healing of Perineal & Sacral Wounds- Incontinent Patients Urinary Catheter Date of Insertion: 08/05/20 Urinary Catheter Time of Insertion: 15:00 Date Urinary Catheter Removed: 08/09/20 Time Urinary Catheter Discontinued: 05:45 Data : 08/29/20 04:28 08/29/20 04:28 A&P Assessment and plan (1) Acute renal failure: Improved. I will make arrangements to have the tunneled dialysis catheter removed tomorrow. Status: Acute Attestations 2 Medical Necessity Statement*: See admitting service's notation. Coding Level of Care Code Acute Janitorial Maintenance Worker for Corrie Ordonez Diagnoses Acute renal failure N17.9
[2020-08-29 17:39] LABS: Glucose Point of Care 139 mg/dL (70-110)
[2020-08-29 18:03] LABS: Glucose Point of Care 124 mg/dL (70-110)
[2020-08-29 19:53] LABS: Glucose Point of Care 147 mg/dL (70-110)
[2020-08-30] VITALS (15 sets, daily range): BP systolic 156–191; BP diastolic 78–97; PULSE 63–94; RESP 16–20; TEMP 36.3–37.3; O2SAT 94–100
[2020-08-30] MEDS: heparin 5,000 unit/mL INJ 1 mL 5000 UNIT SUBCUT ×2 (04:33→18:26)
[2020-08-30] MEDS: linezolid 600 mg Tablet PO ×2 (05:27→18:27)
[2020-08-30 06:42] LABS: Glucose Point of Care 86 mg/dL (70-110)
--- NOTE | 2020-08-30 06:59 | PC.NURSE ---
Summary Patient was very pleasant during shift and rested well. Flowers was d/c before shift and patient voided well into urinal. No pain complaints. IV was started in left wrist for surgery. Surgery prep was done around 0530.
[2020-08-30] MEDS: polyethylene glycol 3350 Pkt 17 gm PO (09:30)
[2020-08-30] MEDS: fluconazole 100 mg Tablet 200 MG PO (09:30)
[2020-08-30] MEDS: ciprofloxacin 500 mg Tablet 250 MG PO (09:30)
[2020-08-30] MEDS: sevelamer 800 mg Tablet PO ×2 (09:30→18:27)
[2020-08-30] MEDS: docusate sodium 100 mg Capsule PO (09:30)
[2020-08-30] MEDS: nystatin powder 15 gm Btl 1 APPLIC TOPICAL ×2 (09:31→18:28)
[2020-08-30] MEDS: fluoxetine 20 mg Capsule PO (09:31)
[2020-08-30] MEDS: pantoprazole DR 40 mg Tablet PO ×2 (09:31→20:11)
[2020-08-30] MEDS: amlodipine 10 mg Tablet PO (09:33)
[2020-08-30] MEDS: predniSONE 20 mg Tablet 40 MG PO (09:34)
[2020-08-30 10:22] LABS: Eosinophils # 0.1 10^3/uL (0.0-0.8); Eosinophils % 1.2 %; Hematocrit 33.9 % (42.0-52.0); Hemoglobin 10.3 g/dL (11.7-16.6); Lymphocytes % 12.2 %; Mean Corpuscular HGB Conc 30.4 g/dL (30.0-36.0); Mean Corpuscular Hemoglobin 28.1 pg (28.0-34.0); Mean Corpuscular Volume 92.6 fL (80-94); Mean Platelet Volume 10.2 fL (7.4-10.4); Monocytes # 0.6 10^3/uL (0.2-0.9); Monocytes % 6.6 %; Neutrophils # 6.71 10^3/uL (1.8-7.7); Neutrophils % 79.5 %; Nucleated Red Blood Cells % 0 %; Platelet Count 132 10^3/cmm (130-400); Red Blood Count 3.66 10^6/uL (4.1-5.3); Red Cell Distribution Width 16.1 % (12.1-15.1); White Blood Count 8.4 10^3/uL (4.0-10.0)
--- NOTE | 2020-08-30 10:37 | PC.NURSE ---
Taken to OR by PAIGE Brannon.
[2020-08-30 10:51] LABS: Alanine Aminotransferase 244 U/L (0-41); Albumin Level 3.1 g/dL (3.5-5.2); Alkaline Phosphatase 226 IU/L (40-130); Anion Gap 16.2 (5-19); Aspartate Amino Transferase 111 U/L (0-40); Blood Urea Nitrogen 55 mg/dL (8-23); Calcium 9.2 mg/dL (8.5-10.5); Carbon Dioxide 25 mmol/L (22-29); Chloride 104 mmol/L (98-107); Glomerular Filtration Rate 43.5 mL/min (90-130); Glucose 99 mg/dL (65-115); Magnesium 1.8 mg/dL (1.7-2.3); Osmolality Calculated 307 mOsm/kg (285-295); Phosphorus 3.1 mg/dL (2.5-4.5); Potassium 4.2 mmol/L (3.5-5.1); Sodium 141 mmol/L (136-145); Total Bilirubin 0.7 mg/dL (0.15-1.2); Total Protein 6.1 g/dL (6.6-8.7)
[2020-08-30] MEDS: sodium chloride 0.9% 1,000 ML 30 ML (11:06)
--- NOTE | 2020-08-30 11:15 | ANES.PREANE2 ---
Pre-Anesthetic Assessment Pre-Anesthetic Assessment: Height/Weight: Height 1.73 m Weight 181.437 kg Temp Pulse Resp BP Pulse Ox 97.3 F L 82 16 167/88 99 08/30/20 10:44 08/30/20 10:44 08/30/20 10:44 08/30/20 10:44 08/30/20 10:44 Preop Diagnosis: Acute kidney injury/renal failure. Proposed Procedure: Operation Date: 08/14/20 08:20 Proposed Procedures p Dialysis Catheter Insertion(Not Applicable) - Eddie Chino MD Operation Date: 08/19/20 09:00 Proposed Procedures p Dialysis Catheter Insertion(Not Applicable) - Eddie Chino MD Operation Date: 08/30/20 11:40 Proposed Procedures p Dialysis Catheter Removal(Not Applicable) - Eddie Chino MD Was Beta Dayo taken within 24 hours: N/A Last intake: Intake Last Liquid Date 08/30/20 Last Liquid Time 09:00 Last Solid Date 08/29/20 Last Solid Time 17:00 Social: Social History: No alcohol and No tobacco Exam: Pre-Anes Outpt Exam: alert, oriented x 3, clear to auscultation bilaterally and regular rate & rhythm Airway: Submandibular: WNL Cervical ROM: WNL MP: 2 Dentition: Full CV/HEM: CV/HEM: Anemia and CHF : : Chronic renal Insufficiency Comments: ARF Hepatic: Hepatic: Hepatitis (Ischemic) GI: GI: GERD Metabolic: Metabolic: Morbid obesity Musc/skel: Musc/skel: Weakness Anesthetic Plan: ASA status: 4 Anesthesia: MAC Risk of > 500 ml blood loss (7ml/kg in children): No Meds/Allergies Current Medications: Current Medications Generic Name Dose Route Start Last Admin Trade Name Freq PRN Reason Stop Dose Admin Acetaminophen 650 mg 08/20/20 17:52 08/24/20 12:29 Acetaminophen 32 5 Mg Tablet PO 650 mg Q6H PRN Administration MILD PAIN Hydrocodone Bitart /Acetaminophen 1 tab 08/29/20 13:19 08/29/20 14:09 Hydrocodone-Acet aminophen 7.5-325 Mg Tablet PO 1 tab Q4H PRN Administration MODERATE PAIN Amlodipine Besylat e 10 mg 08/30/20 09:00 08/30/20 09:33 Amlodipine 10 Mg Tablet PO 10 mg DAILY INA Administration Ciprofloxacin HCl 250 mg 08/17/20 11:00 08/30/20 09:30 Ciprofloxacin 50 0 Mg Tablet PO 250 mg DAILY INA Administration Protocol Docusate Sodium 100 mg 08/25/20 18:00 08/30/20 09:30 Docusate Sodium 100 Mg Capsule PO 100 mg BID INA Administration Fluconazole 200 mg 08/25/20 09:00 08/30/20 09:30 Fluconazole 100 Mg Tablet PO 200 mg DAILY INA Administration Fluoxetine HCl 20 mg 08/23/20 09:00 08/30/20 09:31 Fluoxetine 20 Mg Capsule PO 20 mg DAILY INA Administration Heparin Sodium (Be ef Lung) 5,000 unit 08/12/20 17:00 08/30/20 04:33 Heparin 5,000 Un it/Ml Inj 1 Ml SUBCUT 5,000 unit Q12H INA Administration Albumin Human 12.5 gm in 50 mls @ 60 mls/hr 08/15/20 07:17 08/15/20 18:09 Albumin IV Infused PRN PRN Infusion Hypotension and/o r symptomatic Insulin Aspart 0 unit 08/14/20 12:00 08/30/20 09:31 Insulin Aspart 1 00 Unit/1 Ml SUBCUT Not Given TIDWM INA Protocol Linezolid 600 mg 08/24/20 18:00 08/30/20 05:27 Linezolid 600 Mg Tablet PO 600 mg Q12H INA Administration Protocol Nystatin 1 applic 08/24/20 18:00 08/30/20 09:31 Nystatin Powder 15 Gm Btl TOPICAL 1 applic BID INA Administration Pantoprazole Sodiu m 40 mg 08/24/20 21:00 08/30/20 09:[address] 40 Mg Tablet PO 40 mg Q12H INA Administration Polyethylene Glyco l 17 gm 08/25/20 15:19 08/30/20 09:30 Polyethylene Gly col 3350 Pkt 17 Gm PO 17 gm DAILY INA Administration Prednisone 40 mg 08/28/20 09:00 08/30/20 09:34 Prednisone 20 Mg Tablet PO 40 mg DAILY INA Administration Sevelamer Carbonat e 800 mg 08/29/20 12:00 08/30/20 09:30 Sevelamer 800 Mg Tablet PO 800 mg TIDWM INA Administration PFSH Anesthesia PFSH: Medical History (Updated 08/29/20 @ 07:20 by Mark Harrison MD) Arthritis Bilateral primary osteoarthritis of hip Diastolic CHF Gout HLD (hyperlipidemia) Hypertension Surgical History (Updated 08/04/20 @ 15:08 by Tremaine Ferrari MD) H/O vein stripping H/O ventral hernia repair Family History (Updated 08/04/20 @ 15:09 by Tremaine Ferrari MD) Father CAD (coronary artery disease) Mother Aspiration pneumonia Social History (Updated 07/28/20 @ 10:07 by Nicholas Jaimes LPN) Smoking and tobacco status: never smoked Alcohol intake: never Current occupational status: retired Data Anesthesia CBC & Chem 7: 08/30/20 10:06 08/30/20 10:06 Other Labs: Laboratory Results - last 48 hr 08/24/20 08/28/20 08/28/20 04:10 10:37 17:24 WBC RBC Hgb Hct MCV MCH MCHC RDW Plt Count MPV Neut % (Auto) Lymph % (Auto) [place] % (Auto) Eos % (Auto) Baso % (Auto) Neut # (Auto) Lymph # (Auto) [place] # (Auto) Eos # (Auto) Baso # (Auto) Nucleated RBC % (auto) Nucleated RBCs # O2 Delivery Device Ra Sodium Potassium Chloride Carbon Dioxide Anion Gap BUN Creatinine GFR Calculation Glucose POC Glucose 95 178 H Calculated Osmolality Uric Acid Calcium Phosphorus Magnesium Total Bilirubin AST ALT Alkaline Phosphatase Creatine Kinase Total Protein Albumin Globulin 08/28/20 08/28/20 08/29/20 18:05 19:47 04:28 WBC RBC Hgb Hct MCV MCH MCHC RDW Plt Count MPV Neut % (Auto) Lymph % (Auto) [place] % (Auto) Eos % (Auto) Baso % (Auto) Neut # (Auto) Lymph # (Auto) [place] # (Auto) Eos # (Auto) Baso # (Auto) Nucleated RBC % (auto) Nucleated RBCs # O2 Delivery Device Sodium 140 142 Potassium 5.0 4.5 Chloride 105 107 Carbon Dioxide 23 25 Anion Gap 17.0 14.5 BUN 77 H 72 H Creatinine 2.1 H 1.8 H GFR Calculation 31.8 L 37.9 L Glucose 178 H 100 POC Glucose 129 H Calculated Osmolality 317 H 315 H Uric Acid 10.6 H Calcium 8.9 8.8 Phosphorus 3.5 3.4 Magnesium 2.1 2.0 Total Bilirubin 0.4 0.6 AST 120 H 98 H ALT 253 H 229 H Alkaline Phosphatase 221 H 198 H Creatine Kinase 30 L Total Protein 5.8 L 5.6 L Albumin 2.9 L 2.9 L Globulin 2.9 2.7 08/29/20 08/29/20 08/29/20 04:28 06:50 10:33 WBC 8.4 RBC 3.44 L Hgb 9.7 L Hct 31.4 L MCV 91.3 MCH 28.2 MCHC 30.9 RDW 16.0 H Plt Count 135 MPV 10.0 Neut % (Auto) 77.9 Lymph % (Auto) 12.9 [place] % (Auto) 7.9 Eos % (Auto) 0.6 Baso % (Auto) 0.1 Neut # (Auto) 6.51 Lymph # (Auto) 1.1 [place] # (Auto) 0.7 Eos # (Auto) 0.1 Baso # (Auto) 0.0 Nucleated RBC % (auto) 0 Nucleated RBCs # 0.0 O2 Delivery Device Sodium Potassium Chloride Carbon Dioxide Anion Gap BUN Creatinine GFR Calculation Glucose POC Glucose 91 112 H Calculated Osmolality Uric Acid Calcium Phosphorus Magnesium Total Bilirubin AST ALT Alkaline Phosphatase Creatine Kinase Total Protein Albumin Globulin 08/29/20 08/29/20 08/29/20 17:30 18:00 19:48 WBC RBC Hgb Hct MCV MCH MCHC RDW Plt Count MPV Neut % (Auto) Lymph % (Auto) [place] % (Auto) Eos % (Auto) Baso % (Auto) Neut # (Auto) Lymph # (Auto) [place] # (Auto) Eos # (Auto) Baso # (Auto) Nucleated RBC % (auto) Nucleated RBCs # O2 Delivery Device Sodium Potassium Chloride Carbon Dioxide Anion Gap BUN Creatinine GFR Calculation Glucose POC Glucose 139 H 124 H 147 H Calculated Osmolality Uric Acid Calcium Phosphorus Magnesium Total Bilirubin AST ALT Alkaline Phosphatase Creatine Kinase Total Protein Albumin Globulin 08/30/20 08/30/20 08/30/20 06:07 10:06 10:06 WBC 8.4 RBC 3.66 L Hgb 10.3 L Hct 33.9 L MCV 92.6 MCH 28.1 MCHC 30.4 RDW 16.1 H Plt Count 132 MPV 10.2 Neut % (Auto) 79.5 Lymph % (Auto) 12.2 [place] % (Auto) 6.6 Eos % (Auto) 1.2 Baso % (Auto) 0.0 Neut # (Auto) 6.71 Lymph # (Auto) 1.0 [place] # (Auto) 0.6 Eos # (Auto) 0.1 Baso # (Auto) 0.0 Nucleated RBC % (auto) 0 Nucleated RBCs # 0.0 O2 Delivery Device Sodium 141 Potassium 4.2 Chloride 104 Carbon Dioxide 25 Anion Gap 16.2 BUN 55 H Creatinine 1.6 H GFR Calculation 43.5 L Glucose 99 POC Glucose 86 Calculated Osmolality 307 H Uric Acid Calcium 9.2 Phosphorus 3.1 Magnesium 1.8 Total Bilirubin 0.7 AST 111 H ALT 244 H Alkaline Phosphatase 226 H Creatine Kinase Total Protein 6.1 L Albumin 3.1 L Globulin 3.0 Cardiac Studies: Echocardiogram 08/05/20
--- NOTE | 2020-08-30 11:19 | P.OP_ITS ---
Operative Report Date of procedure: August 30, 2020 Pre-op Diagnosis: Acute kidney injury/renal failure, improved. Post-op diagnosis: same Procedure Done: Removal of tunneled hemodialysis catheter. Pathology: none sent Anesthesia: MAC Estimated blood loss (mL): 1 Complications: None. Condition: stable Disposition: PACU Procedure: The patient was brought to the operating room and was left in a supine position on his gurney. A monitored anesthetic was induced. The tunneled hemodialysis catheter site on the right side of the chest was prepped and draped in a sterile fashion. A combination of 2% lidocaine with 1 to 1 00,000 parts epinephrine and 0.5% bupivacaine was used for local anesthesia throughout the procedure. The sutures holding the catheter in place were removed. The tract of the recently placed dialysis catheter was anesthetized and with gentle progressive traction the dialysis catheter and cuff came loose from the subcutaneous tissue. The dialysis catheter was removed intact. Some pressure was held over the site and eventually a pressure dressing was applied. The patient was taken to the postoperative recovery area in stable condition postoperatively.
--- NOTE | 2020-08-30 11:40 | PM.PN ---
Subjective Subjective: Interval history: Patient was examined this morning, he sitting up into a chair, he is a bit anxious about the surgery plan for his dialysis catheter removal, he tells me that he is feeling well, he is smiling, he is happy in terms of how he is doing, he is motivated to get up out of the chair Medications: Reviewed: Yes Medication Review Details: Current Medications Acetaminophen (Acetaminophen 325 Mg Tablet) 650 mg PO Q6H PRN PRN Reason: MILD PAIN Last Admin: 08/24/20 12:29 Dose: 650 mg Documented by: Hydrocodone Bitart/Acetaminophen (Hydrocodone-Acetaminophen 7.5-325 Mg Tablet) 1 tab PO Q4H PRN PRN Reason: MODERATE PAIN Last Admin: 08/28/20 21:48 Dose: 1 tab Documented by: Amlodipine Besylate (Amlodipine 5 Mg Tablet) 5 mg PO DAILY [facility] Last Admin: 08/29/20 09:07 Dose: 5 mg Documented by: Bisacodyl (Bisacodyl 5 Mg Tablet) 10 mg PO DAILY PRN PRN Reason: CONSTIPATION Ciprofloxacin HCl (Ciprofloxacin 500 Mg Tablet) 250 mg PO DAILY [facility]; Protocol Last Admin: 08/29/20 09:07 Dose: 250 mg Documented by: Dextrose (Dextrose 50% Syringe 50 Ml) 25 ml IVP ONCE PRN; Protocol PRN Reason: hypoglycemia protocol Dextrose (Dextrose 50% Syringe 50 Ml) 50 ml IVP PRN PRN; Protocol PRN Reason: hypoglycemia protocol Dextrose (Dextrose 50% Syringe 50 Ml) 25 ml IVP ONCE PRN; Protocol PRN Reason: hypoglycemia protocol Dextrose (Dextrose 50% Syringe 50 Ml) 50 ml IVP PRN PRN; Protocol PRN Reason: hypoglycemia protocol Docusate Sodium (Docusate Sodium 100 Mg Capsule) 100 mg PO BID [facility] Last Admin: 08/29/20 09:07 Dose: 100 mg Documented by: Fluconazole (Fluconazole 100 Mg Tablet) 200 mg PO DAILY [facility] Last Admin: 08/29/20 09:06 Dose: 200 mg Documented by: Fluoxetine HCl (Fluoxetine 20 Mg Capsule) 20 mg PO DAILY [facility] Last Admin: 08/29/20 09:07 Dose: 20 mg Documented by: Glucagon (Glucagon 1 Mg/Ml Inj 1 Ml) 1 mg IM ONCE PRN; Protocol PRN Reason: Adult Acute Hypoglycemia Prot. Glucagon (Glucagon 1 Mg/Ml Inj 1 Ml) 1 mg IM ONCE PRN; Protocol PRN Reason: Adult Acute Hypoglycemia Prot. Haloperidol Lactate (Haloperidol Inj 5 Mg/Ml Inj 1 Ml) 1 mg IM Q4H PRN PRN Reason: AGITATION Heparin Sodium (Beef Lung) (Heparin 5,000 Unit/Ml Inj 1 Ml) 5,000 unit SUBCUT Q12H [facility] Last Admin: 08/29/20 05:54 Dose: 5,000 unit Documented by: Dextrose (D5w) 500 mls @ 100 mls/hr IV ONCE PRN; Protocol PRN Reason: Adult Acute Hypoglycemia Prot Dextrose (D5w) 500 mls @ 100 mls/hr IV ONCE PRN; Protocol PRN Reason: Adult Acute Hypoglycemia Prot Albumin Human (Albumin) 12.5 gm in 50 mls @ 60 mls/hr IV PRN PRN PRN Reason: Hypotension and/or symptomatic Last Infusion: 08/15/20 18:09 Dose: Infused Documented by: Albumin Human (Albumin) 12.5 gm in 50 mls @ 60 mls/hr IV PRN PRN PRN Reason: Hypotension and/or symptomatic Insulin Aspart (Insulin Aspart 100 Unit/1 Ml) 0 unit SUBCUT TIDWM [facility]; Protocol Last Admin: 08/29/20 09:07 Dose: Not Given Documented by: Linezolid (Linezolid 600 Mg Tablet) 600 mg PO Q12H [facility]; Protocol Last Admin: 08/29/20 05:54 Dose: 600 mg Documented by: Nystatin (Nystatin Powder 15 Gm Btl) 1 applic TOPICAL BID [facility] Last Admin: 08/29/20 09:07 Dose: 1 applic Documented by: Ondansetron HCl (Ondansetron 2 Mg/Ml Sdv 2 Ml) 4 mg IVP Q8H PRN PRN Reason: vomiting, or N/V if npo Pantoprazole Sodium (Pantoprazole Dr 40 Mg Tablet) 40 mg PO Q12H [facility] Last Admin: 08/29/20 09:07 Dose: 40 mg Documented by: Polyethylene Glycol (Polyethylene Glycol 3350 Pkt 17 Gm) 17 gm PO DAILY [facility] Last Admin: 08/29/20 09:07 Dose: 17 gm Documented by: Prednisone (Prednisone 20 Mg Tablet) 40 mg PO DAILY [facility] Last Admin: 08/29/20 09:06 Dose: 40 mg Documented by: Sevelamer Carbonate (Sevelamer 800 Mg Tablet) 1,600 mg PO TIDWM [facility] Last Admin: 08/29/20 09:06 Dose: 1,600 mg Documented by: Vitals/I&O/Wt Last Vital Signs Temp 97.5 F L 08/30/20 11:28 Pulse 87 08/30/20 11:28 Resp 16 08/30/20 11:28 BP 191/97 08/30/20 11:28 Pulse Ox 100 08/30/20 11:28 08/29/20 08/30/20 08/30/20 22:59 06:59 14:59 Intake Total 30 Output Total 1225 / 1225 Balance -1225 / -1225 30 / -1195 Physical Exam Narrative: EXAM NARRATIVE: Large pannus, morbidly obese Const: COMMON NORMALS: no acute distress and patient oriented x3 HENMT: COMMON NORMALS: normocephalic HEAD & SCALP: normocephalic Neck/C-Spine: COMMON NORMALS: no JVD Resp: COMMON NORMALS: normal respiratory effort, No retractions, No use of accessory muscles and clear to auscultation bilaterally AUSCULTATION: clear to auscultation bilaterally Cardio: COMMON NORMALS: no JVD, regular rate, regular rhythm, S1 normal heart sound present and S2 normal heart sound present RATE: regular rate RHYTHM: regular rhythm HEART SOUNDS: S1 normal heart sound present and S2 normal heart sound present GI: COMMON NORMALS: Normal to inspection, nondistended, normoactive bowel sounds present, Soft to palpation, non-tender, No hepatosplenomegaly present, no masses and no bruits PALPATION: Yes Soft to palpation and Yes No hepatosplenomegaly present Extremity: COMMON NORMALS: capillary refill normal, no clubbing, cyanosis or edema, no calf tenderness and no pedal edema Neuro: COMMON NORMALS: patient oriented x3 Psych: COMMON NORMALS: mental status grossly normal Skin: NARRATIVE SKIN EXAM: Right chest, dialysis catheter in place, no surrounding erythema, swelling, tenderness Urinary Catheter Management^: Flowers: Cath Placed During This Visit: yes, but has since been removed by the nurse Reason for Continuing Indwelling Catheter: Decision to DC Catheter Urinary Catheter Date of Insertion: 08/05/20 Urinary Catheter Time of Insertion: 15:00 Date Urinary Catheter Removed: 08/29/20 Time Urinary Catheter Discontinued: 18:35 Data : 08/30/20 10:06 08/30/20 10:06 A&P Assessment and plan (1) Vertebral osteomyelitis: -With sepsis, resolved -CT of abdomen pelvis shows:Lytic changes in the L3 and L4 vertebral bodies without adjacent inflammation. Indolent vertebral body osteomyelitis, metastatic disease or degenerative cystic changes in the vertebral bodies. -CT-of the cervical spine does not show any significant osteomyelitis -I went over CT scan findings with Dr. Cuellar, she feels that changes in vertebral bodies are likely related to osteomyelitis -Unfortunately patient cannot have a MRI given his body habitus -Unfortunately cannot perform a tagged white blood cell scan as he cannot fit in the machine -Unfortunate patient cannot have a CT-guided biopsy, due to his body habitus, difficulty accessing site -White blood cell count 9.1, ESR greater than 112 (Likely related to body habitus) -Blood pressure normotensive, afebrile, saturating in the high 90s on room air -Lactic acid within normal limits -Inflammatory markers improving -Persistent leukocytosis, neutrophilic likely secondary to prednisone, infectious disease advised to continue antibiotic therapy continue to monitor cultures -Right-sided tunneled dialysis catheter looks clean and dry, will be removed today -All blood cultures have been unremarkable -UA shows yeast species Plan: -Continue neurochecks -Continue bariatric bed -Needs to get up out of bed into bariatric chair, agrees to physical therapy -After speaking with infectious disease patient has been transitioned to p.o. Zyvox and Cipro for at least 6 weeks -Fluconazole for yeast UTI -Monitor clinical progress -DNR/DNI -Heparin for DVT prophylaxis -Patient was updated -Discussed with PT OT, to do physical therapy in bariatric chair, will see if we can get him up and stand, Status: Acute (2) Acute renal failure: -Etiology multifactorial's rhabdomyolysis and/or sepsis and or drug reaction and/or dress syndrome -Has not received any NSAIDs, is on lisinopril hydrochlorthiazide which has been held -Was on Lasix therapy -He does have a allergy to cephalexin, allergy unknown, patient is unsure what the allergy is, could he possibly have dress syndrome, however does not have significant eosinophilia on CBC -We will hold allopurinol as associate with dress syndrome,, Denis Diogo syndrome -CPK and uric acid are trending down -CT scan of the abdomen pelvis does not show any significant obstructive uropathy, or kidney stone, but it was a difficult study -Urine output over 2 L, creatinine 1.6 Plan: -Right tunneled dialysis catheter in place, placed by Dr. Chino, nephrology okay to dc dialysis catheter -Nephrology on consult -Urine studies no eosinophils seen -Peripheral smear toxic granulations, no eosinophils -Trend CPK and uric acids, improving -Urine output has improved, -Dialysis catheter placement placement to right femoral vein -On Renvela, sodium bicarb -Nephrology consult -Avoid all nephrotoxic agents Status: Acute (3) RLL pneumonia: Initially on chest x-ray patient was noted to have right lower lobe pneumonia for which she received treatment with ceftriaxone and azithromycin. Currently on Zyvox and Cipro CT chest negative for consolidative process, afebrile, on room air Status: Acute (4) Hypertension: -Hold Norvasc to 10 mg daily -Discontinue lisinopril given creatinine increase -This is currently well controlled Status: Inactive (5) Diastolic CHF: -Cardiac echocardiogram shows EF of 55%, no regional wall motion abnormalities, poor quality study -d/c lasix , monitor urine output closely, Flowers catheter Status: Acute (6) Gout: Allopurinol on hold for possible dress syndrome Given his generalized pain complaints, and elevated uric acid, he was started on prednisone 80 mg daily Status: Acute (7) Bilateral lower extremity edema: Minimal today Status: Acute (8) Morbid obesity with BMI of 60.0-69.9, adult: Needs to follow-up with bariatric clinic, needs to be motivated to lose weight Status: Acute (9) Difficulty in walking: PT OT, however states unable to participate due to weakness Status: Acute (10) Bilateral primary osteoarthritis of hip: PT OT, pain control Status: Acute (11) HLD (hyperlipidemia): Continue simvastatin Status: Acute (12) Unable to ambulate: PT OT Status: Acute (13) Intractable pain: -Has some calf pain bilaterally, lower extremity Doppler negative for DVT Status: Acute (14) Sepsis: Status: Acute (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 -From allopurinol versus ceftriaxone -With transaminitis, acute renal failure, multiorgan dysfunction, I cannot see a rash -W receiving prednisone Status: Acute (16) Encephalopathy: -Continues to have some episodes of confusion, alert to person, place, not to time, follows all commands, cranial nerves II to XII grossly intact -ABG did not show any significant hypoxia or hypercarbia -Continue BiPAP overnight -Unlikely to be meningitis, no neck pain, no neck stiffness -Neurochecks -Patient does have significant uremia, resolved -Septic encephalopathy, resolved -We will continue to monitor -Alert oriented x3, Status: Acute (17) Rhabdomyolysis: -Etiology of rhabdomyolysis is uncertain, patient has been immobile, in bed, been laying on his back, area vertebral osteomyelitis as a possible etiology -Certainly compartment syndrome could be an etiology, but unlikely - CT of his pelvis did show severe left hip osteoarthritis, no significant evidence of compartment syndrome Status: Acute (18) Hyperuricemia: Status: Acute (19) Transaminitis: Improving Status: Acute (20) Ischemic hepatitis: -LFTs have stabilized -Alk phos 184 -Ammonia 26 -INR 1.20 -GGT 330 -Total bili 0.8 -Acute hepatitis panel negative, HIV panel negative -Tylenol level negative -LOUIE, CMV, VZV, EBV pending, drug screen pending -CT scan of the abdomen pelvis with contrast liver unremarkable, gallbladder unremarkable, pancreas unremarkable, no biliary ductal dilatation -Right upper quadrant ultrasound shows hepatomegaly with diffuse fatty infiltration -Patient does have hypotensive episodes during dialysis, -Ischemic hepatitis likely secondary to sepsis, and hypotensive episodes during dialysis Plan: -Goal is to minimize hypotension -Minimize low blood pressures during dialysis -I have stopped all blood pressure medications -Continue to trend LFTs Status: Acute (21) Depression: -Continue Prozac - Ritalin 5 mg twice daily, to stimulate him a bit, monitor heart rates -I have consulted psychiatry Status: Acute (22) Generalized weakness: -I did discuss the case with rheumatology, to evaluate for possible polymyalgia rheumatica, polymyositis, however they feel it is fairly unlikely as patient's symptoms are much more diffuse rather than focal, not concentrating on particular muscle groups -Patient is willing to participate in physical therapy Status: Acute (23) Anemia: -Hemoglobin is down to 9.7, no overt signs of bleeding -Add Protonix 40 twice daily -Likely secondary to renal failure, possibly Zyvox -We will continue to monitor Status: Acute (24) Gout flare: -Given patient's persistently elevated leukocytosis, and elevated uric acids, complaints of generalized pain, and started on a prednisone high dose for gouty flare -His pain has improved to some degree, leukocytosis improved uric acid levels are coming down -We will hold off on allopurinol Status: Acute Additional A&P Information Dvt ppx: Heparin Patient is a DNR/DNI Dispo: Pending on patient's physical therapy progress, either home or care home, change out bariatric bed Plan for today, start physical therapy, will manage pain, dc in 24-48hours in home vs snf Attestations Medical Necessity Statement*: Patient requires hospitalization for acute renal failure, vertebral osteomyelitis, ischemic hepatitis, not requiring aggressive PT OT, hopefully can be discharged in 24 to 48 hours, home versus care home, will see if we can get patient up and moving Coding Level of Care Code Acute [employer] for Chg Fwd Diagnoses Vertebral osteomyelitis M46.20 Acute renal failure N17.9 RLL pneumonia J18.9 Hypertension I10 Diastolic CHF I50.30 Gout M10.9 Bilateral lower extremity edema R60.0 Morbid obesity with BMI of 60.0-69.9, adult E66.01; Z68.44 Difficulty in walking R26.2 Bilateral primary osteoarthritis of hip M16.0 HLD (hyperlipidemia) E78.5 Unable to ambulate R26.2 Intractable pain R52 Sepsis A41.9 DRESS syndrome D72.12; T50.905A Encephalopathy G93.40 Rhabdomyolysis M62.82 Hyperuricemia E79.0 Transaminitis R74.01 Ischemic hepatitis K75.9 Depression F32.9 Generalized weakness R53.1 Anemia D64.9 Gout flare M10.9
--- NOTE | 2020-08-30 11:54 | SUR.PHASEII ---
1148 REPORT GIVEN TO ADALID HOBBS RN AND PT'S AT BEDSIDE,BROUGHT PT BACK TO ROOM PER BED
[2020-08-30] MEDS: cloNIDine 0.1 mg Tablet PO ×2 (13:00→18:27)
--- NOTE | 2020-08-30 14:35 | ANE.PACU2 ---
Inpatient post-anesthesia follow up: Airway intact: Yes Vital signs: Temperature 97.8 F Pulse Rate [Apical ] 98 Pulse Rate 82 Respiratory Rate 18 Blood Pressure [Ri ght Arm] 164/116 Blood Pressure 168/84 Pulse Oximetry 94 Oxygen Delivery Me thod [ Room Air Current Rate & Del alton] Oxygen Delivery Me thod Room Air Oxygen Flow Rate 8 Fraction of Inspir ed Oxygen 28 Hydration adequate: Yes Nausea and vomiting: No Pain level: 1 Mental status: Baseline
[2020-08-30 16:45] LABS: Glucose Point of Care 149 mg/dL (70-110)
[2020-08-30 20:16] LABS: Glucose Point of Care 166 mg/dL (70-110)
[2020-08-31] VITALS (16 sets, daily range): BP systolic 107–190; BP diastolic 71–84; PULSE 69–89; RESP 18; TEMP 36.5–36.9; O2SAT 96–99
[2020-08-31] MEDS: linezolid 600 mg Tablet PO ×2 (05:25→18:36)
[2020-08-31] MEDS: heparin 5,000 unit/mL INJ 1 mL 5000 UNIT SUBCUT ×2 (05:25→18:34)
[2020-08-31 05:29] LABS: Eosinophils # 0.1 10^3/uL (0.0-0.8); Eosinophils % 1.1 %; Hematocrit 29.7 % (42.0-52.0); Hemoglobin 9.1 g/dL (11.7-16.6); Lymphocytes % 15.7 %; Mean Corpuscular HGB Conc 30.6 g/dL (30.0-36.0); Mean Corpuscular Hemoglobin 28.1 pg (28.0-34.0); Mean Corpuscular Volume 91.7 fL (80-94); Mean Platelet Volume 10.5 fL (7.4-10.4); Monocytes # 0.5 10^3/uL (0.2-0.9); Monocytes % 7.5 %; Neutrophils # 4.82 10^3/uL (1.8-7.7); Neutrophils % 75.1 %; Nucleated Red Blood Cells % 0 %; Platelet Count 112 10^3/cmm (130-400); Red Blood Count 3.24 10^6/uL (4.1-5.3); Red Cell Distribution Width 16.2 % (12.1-15.1); White Blood Count 6.4 10^3/uL (4.0-10.0)
[2020-08-31 05:54] LABS: Alanine Aminotransferase 229 U/L (0-41); Albumin Level 2.8 g/dL (3.5-5.2); Alkaline Phosphatase 204 IU/L (40-130); Anion Gap 14.5 (5-19); Aspartate Amino Transferase 101 U/L (0-40); Blood Urea Nitrogen 45 mg/dL (8-23); Calcium 8.7 mg/dL (8.5-10.5); Carbon Dioxide 25 mmol/L (22-29); Chloride 106 mmol/L (98-107); Globulin 2.8 g/dL (1.3-4.6); Glomerular Filtration Rate 55.2 mL/min (90-130); Glucose 100 mg/dL (65-115); Magnesium 1.7 mg/dL (1.7-2.3); Osmolality Calculated 304 mOsm/kg (285-295); Phosphorus 2.9 mg/dL (2.5-4.5); Potassium 4.5 mmol/L (3.5-5.1); Sodium 141 mmol/L (136-145); Total Bilirubin 0.6 mg/dL (0.15-1.2); Total Protein 5.6 g/dL (6.6-8.7)
[2020-08-31 06:13] LABS: Glucose Point of Care 101 mg/dL (70-110)
--- NOTE | 2020-08-31 06:17 | PC.NURSE ---
Patient was pleasant and slept all night. No complaints of pain.
[2020-08-31] MEDS: polyethylene glycol 3350 Pkt 17 gm PO (09:34)
[2020-08-31] MEDS: fluconazole 100 mg Tablet 200 MG PO (09:34)
[2020-08-31] MEDS: docusate sodium 100 mg Capsule PO ×2 (09:35→18:33)
[2020-08-31] MEDS: pantoprazole DR 40 mg Tablet PO ×2 (09:35→20:09)
[2020-08-31] MEDS: fluoxetine 20 mg Capsule PO (09:35)
[2020-08-31] MEDS: ciprofloxacin 500 mg Tablet 250 MG PO (09:35)
[2020-08-31] MEDS: cloNIDine 0.1 mg Tablet PO ×2 (09:35→18:34)
[2020-08-31] MEDS: amlodipine 10 mg Tablet PO (09:35)
[2020-08-31] MEDS: predniSONE 20 mg Tablet 40 MG PO (09:35)
[2020-08-31] MEDS: sevelamer 800 mg Tablet PO ×3 (09:35→18:33)
[2020-08-31] MEDS: HYDROcodone-acetaminophen 7.5-325 mg Tablet 1 TAB PO ×2 (09:39→18:33)
[2020-08-31] MEDS: hyDRALAzine 10 mg Tablet PO ×3 (09:39→20:09)
[2020-08-31] MEDS: nystatin powder 15 gm Btl 1 APPLIC TOPICAL ×2 (09:46→18:35)
[2020-08-31 11:04] LABS: Glucose Point of Care 108 mg/dL (70-110)
--- NOTE | 2020-08-31 13:16 | P.PN_ITS ---
Subjective Subjective: Interval history: This morning patient was examined, he successfully had his dialysis catheter removed, I had an extensive discussion with patient, about his goals of care, he has made progress, is now sitting up in a chair, he is much more motivated about working with physical therapy, however he does not make a lot of effort to move his legs, he has decreased lower body strength, this makes it quite difficult to see if he can stand up on his own, in addition we have worked on longterm placement in [place], however patient refused. Thus ultimately we have decided that we will discharge patient home tomorrow, with home health care, patient voiced understanding, all questions answered Medications: Reviewed: Yes Medication Review Details: Current Medications Acetaminophen (Acetaminophen 325 Mg Tablet) 650 mg PO Q6H PRN PRN Reason: MILD PAIN Last Admin: 08/24/20 12:29 Dose: 650 mg Documented by: Hydrocodone Bitart/Acetaminophen (Hydrocodone-Acetaminophen 7.5-325 Mg Tablet) 1 tab PO Q4H PRN PRN Reason: MODERATE PAIN Last Admin: 08/28/20 21:48 Dose: 1 tab Documented by: Amlodipine Besylate (Amlodipine 5 Mg Tablet) 5 mg PO DAILY [facility] Last Admin: 08/29/20 09:07 Dose: 5 mg Documented by: Bisacodyl (Bisacodyl 5 Mg Tablet) 10 mg PO DAILY PRN PRN Reason: CONSTIPATION Ciprofloxacin HCl (Ciprofloxacin 500 Mg Tablet) 250 mg PO DAILY [facility]; Protocol Last Admin: 08/29/20 09:07 Dose: 250 mg Documented by: Dextrose (Dextrose 50% Syringe 50 Ml) 25 ml IVP ONCE PRN; Protocol PRN Reason: hypoglycemia protocol Dextrose (Dextrose 50% Syringe 50 Ml) 50 ml IVP PRN PRN; Protocol PRN Reason: hypoglycemia protocol Dextrose (Dextrose 50% Syringe 50 Ml) 25 ml IVP ONCE PRN; Protocol PRN Reason: hypoglycemia protocol Dextrose (Dextrose 50% Syringe 50 Ml) 50 ml IVP PRN PRN; Protocol PRN Reason: hypoglycemia protocol Docusate Sodium (Docusate Sodium 100 Mg Capsule) 100 mg PO BID [facility] Last Admin: 08/29/20 09:07 Dose: 100 mg Documented by: Fluconazole (Fluconazole 100 Mg Tablet) 200 mg PO DAILY [facility] Last Admin: 08/29/20 09:06 Dose: 200 mg Documented by: Fluoxetine HCl (Fluoxetine 20 Mg Capsule) 20 mg PO DAILY [facility] Last Admin: 08/29/20 09:07 Dose: 20 mg Documented by: Glucagon (Glucagon 1 Mg/Ml Inj 1 Ml) 1 mg IM ONCE PRN; Protocol PRN Reason: Adult Acute Hypoglycemia Prot. Glucagon (Glucagon 1 Mg/Ml Inj 1 Ml) 1 mg IM ONCE PRN; Protocol PRN Reason: Adult Acute Hypoglycemia Prot. Haloperidol Lactate (Haloperidol Inj 5 Mg/Ml Inj 1 Ml) 1 mg IM Q4H PRN PRN Reason: AGITATION Heparin Sodium (Beef Lung) (Heparin 5,000 Unit/Ml Inj 1 Ml) 5,000 unit SUBCUT Q12H [facility] Last Admin: 08/29/20 05:54 Dose: 5,000 unit Documented by: Dextrose (D5w) 500 mls @ 100 mls/hr IV ONCE PRN; Protocol PRN Reason: Adult Acute Hypoglycemia Prot Dextrose (D5w) 500 mls @ 100 mls/hr IV ONCE PRN; Protocol PRN Reason: Adult Acute Hypoglycemia Prot Albumin Human (Albumin) 12.5 gm in 50 mls @ 60 mls/hr IV PRN PRN PRN Reason: Hypotension and/or symptomatic Last Infusion: 08/15/20 18:09 Dose: Infused Documented by: Albumin Human (Albumin) 12.5 gm in 50 mls @ 60 mls/hr IV PRN PRN PRN Reason: Hypotension and/or symptomatic Insulin Aspart (Insulin Aspart 100 Unit/1 Ml) 0 unit SUBCUT TIDWM [facility]; Protocol Last Admin: 08/29/20 09:07 Dose: Not Given Documented by: Linezolid (Linezolid 600 Mg Tablet) 600 mg PO Q12H [facility]; Protocol Last Admin: 08/29/20 05:54 Dose: 600 mg Documented by: Nystatin (Nystatin Powder 15 Gm Btl) 1 applic TOPICAL BID [facility] Last Admin: 08/29/20 09:07 Dose: 1 applic Documented by: Ondansetron HCl (Ondansetron 2 Mg/Ml Sdv 2 Ml) 4 mg IVP Q8H PRN PRN Reason: vomiting, or N/V if npo Pantoprazole Sodium (Pantoprazole Dr 40 Mg Tablet) 40 mg PO Q12H [facility] Last Admin: 08/29/20 09:07 Dose: 40 mg Documented by: Polyethylene Glycol (Polyethylene Glycol 3350 Pkt 17 Gm) 17 gm PO DAILY [facility] Last Admin: 08/29/20 09:07 Dose: 17 gm Documented by: Prednisone (Prednisone 20 Mg Tablet) 40 mg PO DAILY [facility] Last Admin: 08/29/20 09:06 Dose: 40 mg Documented by: Sevelamer Carbonate (Sevelamer 800 Mg Tablet) 1,600 mg PO TIDWM [facility] Last Admin: 08/29/20 09:06 Dose: 1,600 mg Documented by: Vitals/I&O/Wt Last Vital Signs Temp 98.5 F 08/31/20 10:48 Pulse 79 08/31/20 10:48 Resp 18 08/31/20 10:48 BP 155/84 08/31/20 10:48 Pulse Ox 99 08/31/20 10:48 08/30/20 08/31/20 08/31/20 22:59 06:59 14:59 Intake Total 300 / 300 Output Total 500 / 700 300 / 300 Balance -500 / -700 300 / -400 -300 / -300 Physical Exam Narrative: EXAM NARRATIVE: Large pannus, morbidly obese Const: COMMON NORMALS: no acute distress, patient oriented x3 and alert NUTRITIONAL APPEARANCE: obese ORIENTATION/CONSCIOUSNESS: Yes awake, Yes oriented to person, Yes oriented to place and Yes oriented to time OTHER: Morbidly obese gentleman A bit drowsy this morning HENMT: COMMON NORMALS: normocephalic HEAD & SCALP: normocephalic Eye: COMMON NORMALS: Equal, round and reactive pupils present and EOMs intact bilaterally GENERAL EYE: appearance normal, both eyes and all related structures PUPIL: Yes Equal, round and reactive pupils present Neck/C-Spine: COMMON NORMALS: no JVD and Thyroid normal THYROID: Thyroid normal Lymph: LYMPHATIC: no lymphadenopathy noted Resp: COMMON NORMALS: normal respiratory effort, No retractions, No use of accessory muscles and clear to auscultation bilaterally AUSCULTATION: clear to auscultation bilaterally Cardio: COMMON NORMALS: no JVD, regular rate, regular rhythm, S1 normal heart sound present and S2 normal heart sound present RATE: regular rate RHYTHM: regular rhythm HEART SOUNDS: S1 normal heart sound present and S2 normal heart sound present GI: COMMON NORMALS: Normal to inspection, nondistended, normoactive bowel sounds present, Soft to palpation, non-tender, No hepatosplenomegaly present, no masses and no bruits PALPATION: Yes Soft to palpation and Yes No hepatosplenomegaly present Back/Pelvis: OTHER: Bilateral hips, pain with range of motion Extremity: COMMON NORMALS: capillary refill normal, no clubbing, cyanosis or edema, no calf tenderness and no pedal edema NARRATIVE EXTREMITY EXAM: Diffuse anasarca Neuro: COMMON NORMALS: patient oriented x3 SENSORIUM/ORIENTATION: Yes alert, Yes oriented to person, Yes oriented to place and Yes oriented to time Psych: COMMON NORMALS: mental status grossly normal and Normal thought process present THOUGHT PROCESS: Normal thought process present Skin: NARRATIVE SKIN EXAM: Right chest, dialysis catheter in place, no surrounding erythema, swelling, tenderness Urinary Catheter Management^: Flowers: Cath Placed During This Visit: yes, but has since been removed by the nurse Reason for Continuing Indwelling Catheter: Decision to DC Catheter Urinary Catheter Date of Insertion: 08/05/20 Urinary Catheter Time of Insertion: 15:00 Date Urinary Catheter Removed: 08/29/20 Time Urinary Catheter Discontinued: 18:35 Data : 08/31/20 04:57 08/31/20 04:57 A&P Assessment and plan (1) Vertebral osteomyelitis: -With sepsis, resolved -CT of abdomen pelvis shows:Lytic changes in the L3 and L4 vertebral bodies without adjacent inflammation. Indolent vertebral body osteomyelitis, metastatic disease or degenerative cystic changes in the vertebral bodies. -CT-of the cervical spine does not show any significant osteomyelitis -I went over CT scan findings with Dr. Cuellar, she feels that changes in vertebral bodies are likely related to osteomyelitis -Unfortunately patient cannot have a MRI given his body habitus -Unfortunately cannot perform a tagged white blood cell scan as he cannot fit in the machine -Unfortunate patient cannot have a CT-guided biopsy, due to his body habitus, difficulty accessing site -White blood cell count 9.1, ESR greater than 112 (Likely related to body habitus) -Blood pressure normotensive, afebrile, saturating in the high 90s on room air -Lactic acid within normal limits -Inflammatory markers improving -Persistent leukocytosis, neutrophilic likely secondary to prednisone, infe ctious disease advised to continue antibiotic therapy continue to monitor cultures -Right-sided tunneled dialysis catheter looks clean and dry -All blood cultures have been unremarkable -UA shows yeast species Plan: -Continue neurochecks -Continue bariatric bed -Needs to get up out of bed into bariatric chair, agrees to physical therapy -After speaking with infectious disease patient has been transitioned to p.o. Zyvox and Cipro for at least 6 weeks -Fluconazole for yeast UTI -Monitor clinical progress -DNR/DNI -Heparin for DVT prophylaxis -Patient was updated -Plans to discharge tomorrow, home health care, wheelchair, remaining weeks Zyvox and Cipro Status: Acute (2) Acute renal failure: -Etiology multifactorial's rhabdomyolysis and/or sepsis and or drug reaction and/or dress syndrome -Has not received any NSAIDs, is on lisinopril hydrochlorthiazide which has been held -Was on Lasix therapy -He does have a allergy to cephalexin, allergy unknown, patient is unsure what the allergy is, could he possibly have dress syndrome, however does not have significant eosinophilia on CBC -We will hold allopurinol as associate with dress syndrome,, Denis Diogo syndrome -CPK and uric acid are trending down -CT scan of the abdomen pelvis does not show any significant obstructive uropathy, or kidney stone, but it was a difficult study -Good urine output, creatinine 1.3 Plan: -Right tunneled dialysis catheter removed -Nephrology on consult -Urine studies no eosinophils seen -Peripheral smear toxic granulations, no eosinophils -Trend CPK and uric acids, improving -Urine output has improved, -Dialysis catheter placement placement to right femoral vein -On Renvela, sodium bicarb -Nephrology consult Status: Acute (3) RLL pneumonia: Initially on chest x-ray patient was noted to have right lower lobe pneumonia for which she received treatment with ceftriaxone and azithromycin. Currently on Zyvox and Cipro CT chest negative for consolidative process, afebrile, on room air Status: Acute (4) Hypertension: -Hold Norvasc to 10 mg daily -Discontinue lisinopril given creatinine increase -This is currently well controlled Status: Inactive (5) Diastolic CHF: -Cardiac echocardiogram shows EF of 55%, no regional wall motion abnormalities, poor quality study -d/c lasix , monitor urine output closely, Flowers catheter Status: Acute (6) Gout: Allopurinol on hold for possible dress syndrome Given his generalized pain complaints, and elevated uric acid, he was started on prednisone 80 mg daily Status: Acute (7) Bilateral lower extremity edema: Minimal today Status: Acute (8) Morbid obesity with BMI of 60.0-69.9, adult: Needs to follow-up with bariatric clinic, needs to be motivated to lose weight Status: Acute (9) Difficulty in walking: PT OT, however states unable to participate due to weakness Status: Acute (10) Bilateral primary osteoarthritis of hip: PT OT, pain control Status: Acute (11) HLD (hyperlipidemia): Continue simvastatin Status: Acute (12) Unable to ambulate: PT OT Status: Acute (13) Intractable pain: -Has some calf pain bilaterally, lower extremity Doppler negative for DVT Status: Acute (14) Sepsis: Status: Acute (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 -From allopurinol versus ceftriaxone -With transaminitis, acute renal failure, multiorgan dysfunction, I cannot see a rash -W receiving prednisone Status: Acute (16) Encephalopathy: -Continues to have some episodes of confusion, alert to person, place, not to time, follows all commands, cranial nerves II to XII grossly intact -ABG did not show any significant hypoxia or hypercarbia -Continue BiPAP overnight -Unlikely to be meningitis, no neck pain, no neck stiffness -Neurochecks -Patient does have significant uremia, resolved -Septic encephalopathy, resolved -We will continue to monitor -Alert oriented x3, Status: Acute (17) Rhabdomyolysis: -Resolved -Etiology of rhabdomyolysis is uncertain, patient has been immobile, in bed, been laying on his back, area vertebral osteomyelitis as a possible etiology -Certainly compartment syndrome could be an etiology, but unlikely - CT of his pelvis did show severe left hip osteoarthritis, no significant evidence of compartment syndrome Status: Acute (18) Hyperuricemia: Status: Acute (19) Transaminitis: Improving Status: Acute (20) Ischemic hepatitis: -LFTs have stabilized -Acute hepatitis panel negative, HIV panel negative -Tylenol level negative -LOUIE, CMV, VZV, EBV pending, drug screen pending -CT scan of the abdomen pelvis with contrast liver unremarkable, gallbladder unremarkable, pancreas unremarkable, no biliary ductal dilatation -Right upper quadrant ultrasound shows hepatomegaly with diffuse fatty infiltration -Patient does have hypotensive episodes during dialysis, -Ischemic hepatitis likely secondary to sepsis, and hypotensive episodes during dialysis Plan: -Goal is to minimize hypotension -Minimize low blood pressures during dialysis -I have stopped all blood pressure medications -Continue to trend LFTs Status: Acute (21) Depression: -Continue Prozac - Ritalin 5 mg twice daily, to stimulate him a bit, monitor heart rates -I have consulted psychiatry Status: Acute (22) Generalized weakness: -I did discuss the case with rheumatology, to evaluate for possible polymyalgia rheumatica, polymyositis, however they feel it is fairly unlikely as patient's symptoms are much more diffuse rather than focal, not concentrating on particular muscle groups -Patient is willing to participate in physical therapy Status: Acute (23) Anemia: -Hemoglobin is down to 9.7, no overt signs of bleeding -Add Protonix 40 twice daily -Likely secondary to renal failure, possibly Zyvox -We will continue to monitor Status: Acute (24) Gout flare: -Given patient's persistently elevated leukocytosis, and elevated uric acids, complaints of generalized pain, and started on a prednisone high dose for gouty flare -His pain has improved to some degree, leukocytosis improved uric acid levels are coming down -We will hold off on allopurinol Status: Acute Additional A&P Information Dvt ppx: Heparin Patient is a DNR/DNI Dispo: Pending on patient's physical therapy progress, either home or longterm, change out bariatric bed Plan for today, start physical therapy, will manage pain, dc in 24-48hours in home vs snf Attestations Medical Necessity Statement*: Patient requires hospitalization for vertebral osteomyelitis, renal failure, rhabdo, ischemic hepatitis, will be discharged tomorrow Coding Level of Care Code Acute [employer] for [facility] Fwd Diagnoses Vertebral osteomyelitis M46.20 Acute renal failure N17.9 RLL pneumonia J18.9 Hypertension I10 Diastolic CHF I50.30 Gout M10.9 Bilateral lower extremity edema R60.0 Morbid obesity with BMI of 60.0-69.9, adult E66.01; Z68.44 Difficulty in walking R26.2 Bilateral primary osteoarthritis of hip M16.0 HLD (hyperlipidemia) E78.5 Unable to ambulate R26.2 Intractable pain R52 Sepsis A41.9 DRESS syndrome D72.12; T50.905A Encephalopathy G93.40 Rhabdomyolysis M62.82 Hyperuricemia E79.0 Transaminitis R74.01 Ischemic hepatitis K75.9 Depression F32.9 Generalized weakness R53.1 Anemia D64.9 Gout flare M10.9
[2020-08-31 17:17] LABS: Glucose Point of Care 173 mg/dL (70-110)
[2020-08-31 20:10] LABS: Glucose Point of Care 138 mg/dL (70-110)
[2020-09-01] VITALS (13 sets, daily range): BP systolic 142–172; BP diastolic 71–97; PULSE 80–90; RESP 18; TEMP 36.4–37.1; O2SAT 95–100
[2020-09-01] MEDS: linezolid 600 mg Tablet PO ×2 (05:18→18:08)
[2020-09-01] MEDS: heparin 5,000 unit/mL INJ 1 mL 5000 UNIT SUBCUT ×2 (05:20→16:23)
--- NOTE | 2020-09-01 05:27 | PC.NURSE ---
SHIFT SUMMARY Has done well tonight. Is looking forward to going home. Has used urinal for voiding tonight and says better sensation of when he needs to urinate than he had when Flowers first removed. No c/o pain or discomfort.
[2020-09-01 05:31] LABS: Basophils % 0.2 %; Eosinophils # 0.1 10^3/uL (0.0-0.8); Eosinophils % 1.1 %; Hematocrit 30.1 % (42.0-52.0); Hemoglobin 9.3 g/dL (11.7-16.6); Lymphocytes # 1.2 10^3/uL (0.8-4.8); Mean Corpuscular HGB Conc 30.9 g/dL (30.0-36.0); Mean Corpuscular Hemoglobin 27.9 pg (28.0-34.0); Mean Corpuscular Volume 90.4 fL (80-94); Mean Platelet Volume 10.7 fL (7.4-10.4); Monocytes # 0.5 10^3/uL (0.2-0.9); Monocytes % 7.3 %; Neutrophils # 4.69 10^3/uL (1.8-7.7); Neutrophils % 72.9 %; Nucleated Red Blood Cells % 0 %; Platelet Count 109 10^3/cmm (130-400); Red Blood Count 3.33 10^6/uL (4.1-5.3); Red Cell Distribution Width 16.2 % (12.1-15.1); White Blood Count 6.4 10^3/uL (4.0-10.0)
[2020-09-01 05:45] LABS: Glucose Point of Care 97 mg/dL (70-110)
[2020-09-01 06:01] LABS: Alanine Aminotransferase 222 U/L (0-41); Albumin Level 2.7 g/dL (3.5-5.2); Alkaline Phosphatase 199 IU/L (40-130); Anion Gap 12.5 (5-19); Aspartate Amino Transferase 82 U/L (0-40); Blood Urea Nitrogen 39 mg/dL (8-23); Calcium 8.6 mg/dL (8.5-10.5); Carbon Dioxide 25 mmol/L (22-29); Chloride 107 mmol/L (98-107); Globulin 2.7 g/dL (1.3-4.6); Glomerular Filtration Rate 60.6 mL/min (90-130); Glucose 101 mg/dL (65-115); Magnesium 1.7 mg/dL (1.7-2.3); Osmolality Calculated 300 mOsm/kg (285-295); Phosphorus 2.6 mg/dL (2.5-4.5); Potassium 4.5 mmol/L (3.5-5.1); Sodium 140 mmol/L (136-145); Total Bilirubin 0.6 mg/dL (0.15-1.2); Total Protein 5.4 g/dL (6.6-8.7)
[2020-09-01] MEDS: fluoxetine 20 mg Capsule PO (08:18)
[2020-09-01] MEDS: sevelamer 800 mg Tablet PO ×3 (08:18→18:09)
[2020-09-01] MEDS: docusate sodium 100 mg Capsule PO ×2 (08:18→18:08)
[2020-09-01] MEDS: hyDRALAzine 10 mg Tablet PO (08:18)
[2020-09-01] MEDS: fluconazole 100 mg Tablet 200 MG PO (08:18)
[2020-09-01] MEDS: amlodipine 10 mg Tablet PO (08:19)
[2020-09-01] MEDS: pantoprazole DR 40 mg Tablet PO ×2 (08:19→20:22)
[2020-09-01] MEDS: cloNIDine 0.1 mg Tablet PO ×2 (08:19→18:08)
[2020-09-01] MEDS: polyethylene glycol 3350 Pkt 17 gm PO (08:19)
[2020-09-01] MEDS: predniSONE 20 mg Tablet 40 MG PO (08:19)
[2020-09-01] MEDS: ciprofloxacin 500 mg Tablet 250 MG PO (08:19)
[2020-09-01] MEDS: HYDROcodone-acetaminophen 7.5-325 mg Tablet 1 TAB PO ×3 (08:19→18:09)
[2020-09-01] MEDS: nystatin powder 15 gm Btl 1 APPLIC TOPICAL ×2 (08:20→18:09)
[2020-09-01 10:38] LABS: Glucose Point of Care 94 mg/dL (70-110)
--- NOTE | 2020-09-01 16:17 | P.PN_ITS ---
Subjective Subjective: Interval history: Patient is doing well this morning, he is actually in the wheelchair, able to push himself forward and backwards, no fevers overnight, no nausea, no vomiting When patient will be discharged home, he will require a hospital bed, for morbid obesity, PERRY, head of the bed elevated 30 degrees Medications: Reviewed: Yes Medication Review Details: Current Medications Acetaminophen (Acetaminophen 325 Mg Tablet) 650 mg PO Q6H PRN PRN Reason: MILD PAIN Last Admin: 08/24/20 12:29 Dose: 650 mg Documented by: Hydrocodone Bitart/Acetaminophen (Hydrocodone-Acetaminophen 7.5-325 Mg Tablet) 1 tab PO Q4H PRN PRN Reason: MODERATE PAIN Last Admin: 08/28/20 21:48 Dose: 1 tab Documented by: Amlodipine Besylate (Amlodipine 5 Mg Tablet) 5 mg PO DAILY [facility] Last Admin: 08/29/20 09:07 Dose: 5 mg Documented by: Bisacodyl (Bisacodyl 5 Mg Tablet) 10 mg PO DAILY PRN PRN Reason: CONSTIPATION Ciprofloxacin HCl (Ciprofloxacin 500 Mg Tablet) 250 mg PO DAILY [facility]; Protocol Last Admin: 08/29/20 09:07 Dose: 250 mg Documented by: Dextrose (Dextrose 50% Syringe 50 Ml) 25 ml IVP ONCE PRN; Protocol PRN Reason: hypoglycemia protocol Dextrose (Dextrose 50% Syringe 50 Ml) 50 ml IVP PRN PRN; Protocol PRN Reason: hypoglycemia protocol Dextrose (Dextrose 50% Syringe 50 Ml) 25 ml IVP ONCE PRN; Protocol PRN Reason: hypoglycemia protocol Dextrose (Dextrose 50% Syringe 50 Ml) 50 ml IVP PRN PRN; Protocol PRN Reason: hypoglycemia protocol Docusate Sodium (Docusate Sodium 100 Mg Capsule) 100 mg PO BID [facility] Last Admin: 08/29/20 09:07 Dose: 100 mg Documented by: Fluconazole (Fluconazole 100 Mg Tablet) 200 mg PO DAILY [facility] Last Admin: 08/29/20 09:06 Dose: 200 mg Documented by: Fluoxetine HCl (Fluoxetine 20 Mg Capsule) 20 mg PO DAILY [facility] Last Admin: 08/29/20 09:07 Dose: 20 mg Documented by: Glucagon (Glucagon 1 Mg/Ml Inj 1 Ml) 1 mg IM ONCE PRN; Protocol PRN Reason: Adult Acute Hypoglycemia Prot. Glucagon (Glucagon 1 Mg/Ml Inj 1 Ml) 1 mg IM ONCE PRN; Protocol PRN Reason: Adult Acute Hypoglycemia Prot. Haloperidol Lactate (Haloperidol Inj 5 Mg/Ml Inj 1 Ml) 1 mg IM Q4H PRN PRN Reason: AGITATION Heparin Sodium (Beef Lung) (Heparin 5,000 Unit/Ml Inj 1 Ml) 5,000 unit SUBCUT Q12H [facility] Last Admin: 08/29/20 05:54 Dose: 5,000 unit Documented by: Dextrose (D5w) 500 mls @ 100 mls/hr IV ONCE PRN; Protocol PRN Reason: Adult Acute Hypoglycemia Prot Dextrose (D5w) 500 mls @ 100 mls/hr IV ONCE PRN; Protocol PRN Reason: Adult Acute Hypoglycemia Prot Albumin Human (Albumin) 12.5 gm in 50 mls @ 60 mls/hr IV PRN PRN PRN Reason: Hypotension and/or symptomatic Last Infusion: 08/15/20 18:09 Dose: Infused Documented by: Albumin Human (Albumin) 12.5 gm in 50 mls @ 60 mls/hr IV PRN PRN PRN Reason: Hypotension and/or symptomatic Insulin Aspart (Insulin Aspart 100 Unit/1 Ml) 0 unit SUBCUT TIDWM [facility]; Protocol Last Admin: 08/29/20 09:07 Dose: Not Given Documented by: Linezolid (Linezolid 600 Mg Tablet) 600 mg PO Q12H [facility]; Protocol Last Admin: 08/29/20 05:54 Dose: 600 mg Documented by: Nystatin (Nystatin Powder 15 Gm Btl) 1 applic TOPICAL BID [facility] Last Admin: 08/29/20 09:07 Dose: 1 applic Documented by: Ondansetron HCl (Ondansetron 2 Mg/Ml Sdv 2 Ml) 4 mg IVP Q8H PRN PRN Reason: vomiting, or N/V if npo Pantoprazole Sodium (Pantoprazole Dr 40 Mg Tablet) 40 mg PO Q12H [facility] Last Admin: 08/29/20 09:07 Dose: 40 mg Documented by: Polyethylene Glycol (Polyethylene Glycol 3350 Pkt 17 Gm) 17 gm PO DAILY [facility] Last Admin: 08/29/20 09:07 Dose: 17 gm Documented by: Prednisone (Prednisone 20 Mg Tablet) 40 mg PO DAILY [facility] Last Admin: 08/29/20 09:06 Dose: 40 mg Documented by: Sevelamer Carbonate (Sevelamer 800 Mg Tablet) 1,600 mg PO TIDWM [facility] Last Admin: 08/29/20 09:06 Dose: 1,600 mg Documented by: Vitals/I&O/Wt Last Vital Signs Temp 98.0 F 09/01/20 12:00 Pulse 82 09/01/20 14:00 Resp 18 09/01/20 12:00 BP 142/85 09/01/20 12:00 Pulse Ox 100 09/01/20 11:35 09/01/20 09/01/20 09/01/20 06:59 14:59 22:59 Intake Total 300 / 300 Output Total 525 / 1025 Balance -225 / -725 Physical Exam Const: COMMON NORMALS: no acute distress and patient oriented x3 HENMT: COMMON NORMALS: normocephalic HEAD & SCALP: normocephalic Neck/C-Spine: COMMON NORMALS: no JVD Resp: COMMON NORMALS: normal respiratory effort, No retractions, No use of accessory muscles and clear to auscultation bilaterally AUSCULTATION: clear to auscultation bilaterally Cardio: COMMON NORMALS: no JVD, regular rate, regular rhythm, S1 normal heart sound present and S2 normal heart sound present RATE: regular rate RHYTHM: regular rhythm HEART SOUNDS: S1 normal heart sound present and S2 normal heart sound present GI: COMMON NORMALS: Normal to inspection, nondistended, normoactive bowel sounds present, Soft to palpation, non-tender, No hepatosplenomegaly present, no masses and no bruits PALPATION: Yes Soft to palpation and Yes No hepatosplenomegaly present Extremity: COMMON NORMALS: capillary refill normal, no clubbing, cyanosis or edema, no calf tenderness and no pedal edema Neuro: COMMON NORMALS: patient oriented x3 Psych: COMMON NORMALS: mental status grossly normal Urinary Catheter Management^: Flowers: Cath Placed During This Visit: yes, but has since been removed by the nurse Reason for Continuing Indwelling Catheter: Decision to DC Catheter Urinary Catheter Date of Insertion: 08/05/20 Urinary Catheter Time of Insertion: 15:00 Date Urinary Catheter Removed: 08/29/20 Time Urinary Catheter Discontinued: 18:35 Data : 09/01/20 05:04 09/01/20 05:04 A&P Assessment and plan (1) Vertebral osteomyelitis: -With sepsis, resolved -CT of abdomen pelvis shows:Lytic changes in the L3 and L4 vertebral bodies without adjacent inflammation. Indolent vertebral body osteomyelitis, metastatic disease or degenerative cystic changes in the vertebral bodies. -CT-of the cervical spine does not show any significant osteomyelitis -I went over CT scan findings with Dr. Cuellar, she feels that changes in vertebral bodies are likely related to osteomyelitis -Unfortunately patient cannot have a MRI given his body habitus -Unfortunately cannot perform a tagged white blood cell scan as he cannot fit in the machine -Unfortunate patient cannot have a CT-guided biopsy, due to his body habitus, difficulty accessing site -White blood cell count 9.1, ESR greater than 112 (Likely related to body habitus) -Blood pressure normotensive, afebrile, saturating in the high 90s on room air -Lactic acid within normal limits -Inflammatory markers improving -Persistent leukocytosis, neutrophilic likely secondary to prednisone, infectious disease advised to continue antibiotic therapy continue to monitor cultures -Right-sided tunneled dialysis catheter looks clean and dry -All blood cultures have been unremarkable -UA shows yeast species, on fluconazole Plan: -Continue neurochecks -Continue bariatric bed -Needs to get up out of bed into bariatric chair, agrees to physical therapy -After speaking with infectious disease patient has been transitioned to p.o. Zyvox and Cipro for at least 6 weeks -Currently having some mild anemia hemoglobin 9.3, thrombocytopenia of 105, will have to monitor closely for bone marrow suppression associated with Zyvox -Fluconazole for yeast UTI -Monitor clinical progress -DNR/DNI -Heparin for DVT prophylaxis -Patient was updated -Plans to on Saturday with home health care Status: Acute (2) Acute renal failure: -Etiology multifactorial's rhabdomyolysis and/or sepsis and or drug reaction and/or dress syndrome -Has not received any NSAIDs, is on lisinopril hydrochlorthiazide which has been held -Was on Lasix therapy -He does have a allergy to cephalexin, allergy unknown, patient is unsure what the allergy is, could he possibly have dress syndrome, however does not have significant eosinophilia on CBC -We will hold allopurinol as associate with dress syndrome,, Denis Diogo syndrome -CPK and uric acid are trending down -CT scan of the abdomen pelvis does not show any significant obstructive uropathy, or kidney stone, but it was a difficult study -Good urine output, creatinine 1.3 Plan: -Right tunneled dialysis catheter removed -Nephrology on consult -Urine studies no eosinophils seen -Peripheral smear toxic granulations, no eosinophils -Trend CPK and uric acids, improving -Urine output has improved, -Dialysis catheter placement placement to right femoral vein -On Renvela, sodium bicarb -Nephrology consult Status: Acute (3) RLL pneumonia: Initially on chest x-ray patient was noted to have right lower lobe pneumonia for which she received treatment with ceftriaxone and azithromycin. Currently on Zyvox and Cipro CT chest negative for consolidative process, afebrile, on room air Status: Acute (4) Hypertension: -Hold Norvasc to 10 mg daily -Discontinue lisinopril given creatinine increase -This is currently well controlled Status: Inactive (5) Diastolic CHF: -Cardiac echocardiogram shows EF of 55%, no regional wall motion abnormalities, poor quality study -d/c lasix , monitor urine output closely, Flowers catheter Status: Acute (6) Gout: Allopurinol on hold for possible dress syndrome Given his generalized pain complaints, and elevated uric acid, he was started on prednisone 80 mg daily Status: Acute (7) Bilateral lower extremity edema: Minimal today Status: Acute (8) Morbid obesity with BMI of 60.0-69.9, adult: Needs to follow-up with bariatric clinic, needs to be motivated to lose weight Status: Acute (9) Difficulty in walking: PT OT, however states unable to participate due to weakness Status: Acute (10) Bilateral primary osteoarthritis of hip: PT OT, pain control Status: Acute (11) HLD (hyperlipidemia): Continue simvastatin Status: Acute (12) Unable to ambulate: PT OT Status: Acute (13) Intractable pain: -Has some calf pain bilaterally, lower extremity Doppler negative for DVT Status: Acute (14) Sepsis: Status: Acute (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 -From allopurinol versus ceftriaxone -With transaminitis, acute renal failure, multiorgan dysfunction, I cannot see a rash -W receiving prednisone Status: Acute (16) Encephalopathy: -Continues to have some episodes of confusion, alert to person, place, not to time, follows all commands, cranial nerves II to XII grossly intact -ABG did not show any significant hypoxia or hypercarbia -Continue BiPAP overnight -Unlikely to be meningitis, no neck pain, no neck stiffness -Neurochecks -Patient does have significant uremia, resolved -Septic encephalopathy, resolved -We will continue to monitor -Alert oriented x3, Status: Acute (17) Rhabdomyolysis: -Resolved -Etiology of rhabdomyolysis is uncertain, patient has been immobile, in bed, been laying on his back, area vertebral osteomyelitis as a possible etiology -Certainly compartment syndrome could be an etiology, but unlikely - CT of his pelvis did show severe left hip osteoarthritis, no significant evidence of compartment syndrome Status: Acute (18) Hyperuricemia: Status: Acute (19) Transaminitis: Improving Status: Acute (20) Ischemic hepatitis: -LFTs have stabilized -Acute hepatitis panel negative, HIV panel negative -Tylenol level negative -LOUIE, CMV, VZV, EBV pending, drug screen pending -CT scan of the abdomen pelvis with contrast liver unremarkable, gallbladder unremarkable, pancreas unremarkable, no biliary ductal dilatation -Right upper quadrant ultrasound shows hepatomegaly with diffuse fatty infiltration -Patient does have hypotensive episodes during dialysis, -Ischemic hepatitis likely secondary to sepsis, and hypotensive episodes during dialysis Plan: -Goal is to minimize hypotension -Minimize low blood pressures during dialysis -I have stopped all blood pressure medications -Continue to trend LFTs Status: Acute (21) Depression: -Continue Prozac - Ritalin 5 mg twice daily, to stimulate him a bit, monitor heart rates -I have consulted psychiatry Status: Acute (22) Generalized weakness: -I did discuss the case with rheumatology, to evaluate for possible polymyalgia rheumatica, polymyositis, however they feel it is fairly unlikely as patient's symptoms are much more diffuse rather than focal, not concentrating on particular muscle groups -Patient is willing to participate in physical therapy Status: Acute (23) Anemia: -Hemoglobin is down to 9.7, no overt signs of bleeding -Add Protonix 40 twice daily -Likely secondary to renal failure, possibly Zyvox -We will continue to monitor Status: Acute (24) Gout flare: -Given patient's persistently elevated leukocytosis, and elevated uric acids, complaints of generalized pain, and started on a prednisone high dose for gouty flare -His pain has improved to some degree, leukocytosis improved uric acid levels are coming down -We will hold off on allopurinol Status: Acute Additional A&P Information Dvt ppx: Heparin Patient is a DNR/DNI Dispo: Pending on patient's physical therapy progress, either home or fpc, change out bariatric bed Plan for today, start physical therapy, will manage pain, dc in 24-48hours in home vs snf Attestations Medical Necessity Statement*: Patient course hospitalization vertebral osteomyelitis, ischemic hepatitis, acute renal failure, deconditioning Coding Level of Care Code Acute Detasseler for g Fwd Diagnoses Vertebral osteomyelitis M46.20 Acute renal failure N17.9 RLL pneumonia J18.9 Hypertension I10 Diastolic CHF I50.30 Gout M10.9 Bilateral lower extremity edema R60.0 Morbid obesity with BMI of 60.0-69.9, adult E66.01; Z68.44 Difficulty in walking R26.2 Bilateral primary osteoarthritis of hip M16.0 HLD (hyperlipidemia) E78.5 Unable to ambulate R26.2 Intractable pain R52 Sepsis A41.9 DRESS syndrome D72.12; T50.905A Encephalopathy G93.40 Rhabdomyolysis M62.82 Hyperuricemia E79.0 Transaminitis R74.01 Ischemic hepatitis K75.9 Depression F32.9 Generalized weakness R53.1 Anemia D64.9 Gout flare M10.9
[2020-09-01] MEDS: hyDRALAzine 10 mg Tablet 20 MG PO ×2 (16:23→20:22)
[2020-09-01 17:40] LABS: Glucose Point of Care 130 mg/dL (70-110)
[2020-09-01 20:57] LABS: Glucose Point of Care 133 mg/dL (70-110)
[2020-09-02] VITALS (12 sets, daily range): BP systolic 161–198; BP diastolic 78–103; PULSE 83–95; RESP 18–20; TEMP 36.3–37; O2SAT 95–100
[2020-09-02 06:01] LABS: Basophils % 0.1 %; Eosinophils # 0.1 10^3/uL (0.0-0.8); Eosinophils % 0.9 %; Hematocrit 33.6 % (42.0-52.0); Hemoglobin 10.4 g/dL (11.7-16.6); Lymphocytes # 1.3 10^3/uL (0.8-4.8); Lymphocytes % 14.3 %; Mean Corpuscular Hemoglobin 27.9 pg (28.0-34.0); Mean Corpuscular Volume 90.1 fL (80-94); Mean Platelet Volume 10.7 fL (7.4-10.4); Monocytes # 0.8 10^3/uL (0.2-0.9); Monocytes % 8.7 %; Neutrophils # 7.06 10^3/uL (1.8-7.7); Neutrophils % 75.4 %; Nucleated Red Blood Cells % 0 %; Platelet Count 141 10^3/cmm (130-400); Red Blood Count 3.73 10^6/uL (4.1-5.3); Red Cell Distribution Width 16.4 % (12.1-15.1); White Blood Count 9.4 10^3/uL (4.0-10.0)
[2020-09-02 06:19] LABS: Alanine Aminotransferase 250 U/L (0-41); Albumin Level 3.1 g/dL (3.5-5.2); Alkaline Phosphatase 224 IU/L (40-130); Anion Gap 13.3 (5-19); Aspartate Amino Transferase 100 U/L (0-40); Blood Urea Nitrogen 35 mg/dL (8-23); Calcium 9.2 mg/dL (8.5-10.5); Carbon Dioxide 26 mmol/L (22-29); Chloride 104 mmol/L (98-107); Globulin 2.8 g/dL (1.3-4.6); Glomerular Filtration Rate 74.8 mL/min (90-130); Glucose 100 mg/dL (65-115); Magnesium 1.7 mg/dL (1.7-2.3); Osmolality Calculated 296 mOsm/kg (285-295); Phosphorus 2.7 mg/dL (2.5-4.5); Potassium 4.3 mmol/L (3.5-5.1); Sodium 139 mmol/L (136-145); Total Bilirubin 0.6 mg/dL (0.15-1.2); Total Protein 5.9 g/dL (6.6-8.7)
[2020-09-02] MEDS: heparin 5,000 unit/mL INJ 1 mL 5000 UNIT SUBCUT ×2 (06:30→18:34)
[2020-09-02] MEDS: linezolid 600 mg Tablet PO ×2 (06:30→18:34)
[2020-09-02 06:39] LABS: Glucose Point of Care 111 mg/dL (70-110)
--- NOTE | 2020-09-02 07:34 | NUR.SHIFT ---
Patient mainly slept through the night. During which, nursing staff needed to examine the patients back, during this time, the patient attempted to assist stuff during this event.
[2020-09-02] MEDS: fluconazole 100 mg Tablet 200 MG PO (09:12)
[2020-09-02] MEDS: HYDROcodone-acetaminophen 7.5-325 mg Tablet 1 TAB PO ×2 (09:12→18:33)
[2020-09-02] MEDS: metoprolol tartrate 25 mg Tablet 12.5 MG PO (09:13)
[2020-09-02] MEDS: ciprofloxacin 500 mg Tablet 250 MG PO (09:13)
[2020-09-02] MEDS: docusate sodium 100 mg Capsule PO ×2 (09:13→18:34)
[2020-09-02] MEDS: amlodipine 10 mg Tablet PO (09:13)
[2020-09-02] MEDS: sevelamer 800 mg Tablet PO ×2 (09:13→18:34)
[2020-09-02] MEDS: pantoprazole DR 40 mg Tablet PO ×2 (09:13→21:06)
[2020-09-02] MEDS: cloNIDine 0.1 mg Tablet PO (09:13)
[2020-09-02] MEDS: fluoxetine 20 mg Capsule PO (09:13)
[2020-09-02] MEDS: nystatin powder 15 gm Btl 1 APPLIC TOPICAL ×2 (09:14→18:35)
[2020-09-02] MEDS: polyethylene glycol 3350 Pkt 17 gm PO (09:14)
[2020-09-02] MEDS: ondansetron 2 mg/ML SDV 2 mL 4 MG IVP ×2 (09:14→18:33)
--- NOTE | 2020-09-02 11:36 | PC.CHAP ---
Pastoral Care Encounter/Spiritual Assessment Type of Contact [] Declined internist medical doctor md visit [] Patient/Family/Request visit [] Outpatient visit [xx] Follow-up visit [] Physician referral [] Code/Alert [] Routine visit [] Staff referral [] Actively dying [xx] Patient sleeping [] Family support [] [] Out of room [] Palliative care [] [] Receiving care in room [] Pre-surgical visit [] Trauma [xx] Long length of stay [] ICU visit [] Other: Relational/Emotional Strength [] Patient feels connected with others/family/visitors/staff [] Distress [] Loneliness/isolation [] Abandonment Spirituality of Patient [] Person of Minal [] Attends Pentecostal of their Minal [] Believes in Prayer [] Reads Bible or Scientologist materials [] There are Spiritual issues to be addressed It Infrastructure Architect Interventions [] Prayer [] Active listening [] Non-anxious presence [] Spiritual/emotional support [] Crisis/trauma care [] Spiritual counseling [] Bereavement support [] Provided bereavement packet [] Provided Bible/devotional materials [] Provided toy/stuffed animal, coloring book to patient or family member [] Provided Communion [] Anointing/Cotter [] Salvation [] Completed spiritual assessment [] Other: Impact on Illness or Injury [] Angry [] Fearful [] Anxious [] Often cries [] Exhaustion [] Unable to work [] Unable to attend christianity [] Unable to walk/stand [] Unable to read [] Unable to drive [] Unable to eat/drink [] Unable to sleep [] Unable to be with family [] Patient intubated [] Other: Summary Try follow up visit again later. Time spent with patient 1 minute
[2020-09-02 11:53] LABS: Glucose Point of Care 96 mg/dL (70-110)
--- NOTE | 2020-09-02 13:21 | P.PN_ITS ---
Subjective Subjective: Interval history: This morning patient was examined, he is complaining of some indigestion, like some medication to help Medications: Medication Review Details: Current Medications Acetaminophen (Acetaminophen 325 Mg Tablet) 650 mg PO Q6H PRN PRN Reason: MILD PAIN Last Admin: 08/24/20 12:29 Dose: 650 mg Documented by: Hydrocodone Bitart/Acetaminophen (Hydrocodone-Acetaminophen 7.5-325 Mg Tablet) 1 tab PO Q4H PRN PRN Reason: MODERATE PAIN Last Admin: 08/28/20 21:48 Dose: 1 tab Documented by: Amlodipine Besylate (Amlodipine 5 Mg Tablet) 5 mg PO DAILY [facility] Last Admin: 08/29/20 09:07 Dose: 5 mg Documented by: Bisacodyl (Bisacodyl 5 Mg Tablet) 10 mg PO DAILY PRN PRN Reason: CONSTIPATION Ciprofloxacin HCl (Ciprofloxacin 500 Mg Tablet) 250 mg PO DAILY [facility]; Protocol Last Admin: 08/29/20 09:07 Dose: 250 mg Documented by: Dextrose (Dextrose 50% Syringe 50 Ml) 25 ml IVP ONCE PRN; Protocol PRN Reason: hypoglycemia protocol Dextrose (Dextrose 50% Syringe 50 Ml) 50 ml IVP PRN PRN; Protocol PRN Reason: hypoglycemia protocol Dextrose (Dextrose 50% Syringe 50 Ml) 25 ml IVP ONCE PRN; Protocol PRN Reason: hypoglycemia protocol Dextrose (Dextrose 50% Syringe 50 Ml) 50 ml IVP PRN PRN; Protocol PRN Reason: hypoglycemia protocol Docusate Sodium (Docusate Sodium 100 Mg Capsule) 100 mg PO BID [facility] Last Admin: 08/29/20 09:07 Dose: 100 mg Documented by: Fluconazole (Fluconazole 100 Mg Tablet) 200 mg PO DAILY [facility] Last Admin: 08/29/20 09:06 Dose: 200 mg Documented by: Fluoxetine HCl (Fluoxetine 20 Mg Capsule) 20 mg PO DAILY [facility] Last Admin: 08/29/20 09:07 Dose: 20 mg Documented by: Glucagon (Glucagon 1 Mg/Ml Inj 1 Ml) 1 mg IM ONCE PRN; Protocol PRN Reason: Adult Acute Hypoglycemia Prot. Glucagon (Glucagon 1 Mg/Ml Inj 1 Ml) 1 mg IM ONCE PRN; Protocol PRN Reason: Adult Acute Hypoglycemia Prot. Haloperidol Lactate (Haloperidol Inj 5 Mg/Ml Inj 1 Ml) 1 mg IM Q4H PRN PRN Reason: AGITATION Heparin Sodium (Beef Lung) (Heparin 5,000 Unit/Ml Inj 1 Ml) 5,000 unit SUBCUT Q12H INA Last Admin: 08/29/20 05:54 Dose: 5,000 unit Documented by: Dextrose (D5w) 500 mls @ 100 mls/hr IV ONCE PRN; Protocol PRN Reason: Adult Acute Hypoglycemia Prot Dextrose (D5w) 500 mls @ 100 mls/hr IV ONCE PRN; Protocol PRN Reason: Adult Acute Hypoglycemia Prot Albumin Human (Albumin) 12.5 gm in 50 mls @ 60 mls/hr IV PRN PRN PRN Reason: Hypotension and/or symptomatic Last Infusion: 08/15/20 18:09 Dose: Infused Documented by: Albumin Human (Albumin) 12.5 gm in 50 mls @ 60 mls/hr IV PRN PRN PRN Reason: Hypotension and/or symptomatic Insulin Aspart (Insulin Aspart 100 Unit/1 Ml) 0 unit SUBCUT TIDWM [facility]; Protocol Last Admin: 08/29/20 09:07 Dose: Not Given Documented by: Linezolid (Linezolid 600 Mg Tablet) 600 mg PO Q12H INA; Protocol Last Admin: 08/29/20 05:54 Dose: 600 mg Documented by: Nystatin (Nystatin Powder 15 Gm Btl) 1 applic TOPICAL BID [facility] Last Admin: 08/29/20 09:07 Dose: 1 applic Documented by: Ondansetron HCl (Ondansetron 2 Mg/Ml Sdv 2 Ml) 4 mg IVP Q8H PRN PRN Reason: vomiting, or N/V if npo Pantoprazole Sodium (Pantoprazole Dr 40 Mg Tablet) 40 mg PO Q12H [facility] Last Admin: 08/29/20 09:07 Dose: 40 mg Documented by: Polyethylene Glycol (Polyethylene Glycol 3350 Pkt 17 Gm) 17 gm PO DAILY [facility] Last Admin: 08/29/20 09:07 Dose: 17 gm Documented by: Prednisone (Prednisone 20 Mg Tablet) 40 mg PO DAILY [facility] Last Admin: 08/29/20 09:06 Dose: 40 mg Documented by: Sevelamer Carbonate (Sevelamer 800 Mg Tablet) 1,600 mg PO TIDWM [facility] Last Admin: 08/29/20 09:06 Dose: 1,600 mg Documented by: Vitals/I&O/Wt Last Vital Signs Temp 98.4 F 09/02/20 12:00 Pulse 87 09/02/20 12:00 Resp 18 09/02/20 12:00 BP 189/83 09/02/20 12:00 Pulse Ox 99 09/02/20 12:00 09/01/20 09/02/20 09/02/20 22:59 06:59 14:59 Output Total 400 / 400 Balance -400 / -400 Physical Exam Narrative: EXAM NARRATIVE: Large pannus, morbidly obese Const: COMMON NORMALS: no acute distress and patient oriented x3 HENMT: COMMON NORMALS: normocephalic HEAD & SCALP: normocephalic Neck/C-Spine: COMMON NORMALS: no JVD Resp: COMMON NORMALS: normal respiratory effort, No retractions, No use of accessory muscles and clear to auscultation bilaterally AUSCULTATION: clear to auscultation bilaterally Cardio: COMMON NORMALS: no JVD, regular rate, regular rhythm, S1 normal heart sound present and S2 normal heart sound present RATE: regular rate RHYTHM: regular rhythm HEART SOUNDS: S1 normal heart sound present and S2 normal heart sound present GI: COMMON NORMALS: Normal to inspection, nondistended, normoactive bowel sounds present, Soft to palpation, non-tender, No hepatosplenomegaly present, no masses and no bruits PALPATION: Yes Soft to palpation and Yes No hepatosplenomegaly present Extremity: COMMON NORMALS: capillary refill normal, no clubbing, cyanosis or edema, no calf tenderness and no pedal edema Neuro: COMMON NORMALS: patient oriented x3 Psych: COMMON NORMALS: mental status grossly normal Urinary Catheter Management^: Flowers: Cath Placed During This Visit: yes, but has since been removed by the nurse Reason for Continuing Indwelling Catheter: Decision to DC Catheter Urinary Catheter Date of Insertion: 08/05/20 Urinary Catheter Time of Insertion: 15:00 Date Urinary Catheter Removed: 08/29/20 Time Urinary Catheter Discontinued: 18:35 Data : 09/02/20 05:24 09/02/20 05:24 A&P Assessment and plan (1) Vertebral osteomyelitis: -With sepsis, resolved -CT of abdomen pelvis shows:Lytic changes in the L3 and L4 vertebral bodies without adjacent inflammation. Indolent vertebral body osteomyelitis, metastatic disease or degenerative cystic changes in the vertebral bodies. -CT-of the cervical spine does not show any significant osteomyelitis -I went over CT scan findings with Dr. Cuellar, she feels that changes in vertebral bodies are likely related to osteomyelitis -Unfortunately patient cannot have a MRI given his body habitus -Unfortunately cannot perform a tagged white blood cell scan as he cannot fit in the machine -Unfortunate patient cannot have a CT-guided biopsy, due to his body habitus, difficulty accessing site -White blood cell count 9.1, ESR greater than 112 (Likely related to body habitus) -Blood pressure normotensive, afebrile, saturating in the high 90s on room air -Lactic acid within normal limits -Inflammatory markers improving -Persistent leukocytosis, neutrophilic likely secondary to prednisone, infectious disease advised to continue antibiotic therapy continue to monitor cultures -Right-sided tunneled dialysis catheter looks clean and dry -All blood cultures have been unremarkable -UA shows yeast species, on fluconazole Plan: -Continue neurochecks -Continue bariatric bed -Needs to get up out of bed into bariatric chair, agrees to physical therapy -After speaking with infectious disease patient has been transitioned to p.o. Zyvox and Cipro for at least 6 weeks -Currently having some mild anemia hemoglobin 10.4, thrombocytopenia of 141, will have to monitor closely for bone marrow suppression associated with Zyvox -Fluconazole for yeast UTI -Monitor clinical progress -DNR/DNI -Heparin for DVT prophylaxis -Patient was updated -Plans to on Saturday with home health care Status: Acute (2) Acute renal failure: -Etiology multifactorial's rhabdomyolysis and/or sepsis and or drug reaction and/or dress syndrome -Has not received any NSAIDs, is on lisinopril hydrochlorthiazide which has been held -Was on Lasix therapy -He does have a allergy to cephalexin, allergy unknown, patient is unsure what the allergy is, could he possibly have dress syndrome, however does not have significant eosinophilia on CBC -We will hold allopurinol as associate with dress syndrome,, Denis Diogo syndrome -CPK and uric acid are trending down -CT scan of the abdomen pelvis does not show any significant obstructive uropathy, or kidney stone, but it was a difficult study -Good urine output, creatinine 1.0 Plan: -Right tunneled dialysis catheter removed -Nephrology on consult -Urine studies no eosinophils seen -Peripheral smear toxic granulations, no eosinophils -Trend CPK and uric acids, improving -Urine output has improved, -Dialysis catheter placement placement to right femoral vein -On Renvela, sodium bicarb -Nephrology consult Status: Acute (3) RLL pneumonia: Initially on chest x-ray patient was noted to have right lower lobe pneumonia for which she received treatment with ceftriaxone and azithromycin. Currently on Zyvox and Cipro CT chest negative for consolidative process, afebrile, on room air Status: Acute (4) Hypertension: -Hold Norvasc to 10 mg daily -Discontinue lisinopril given creatinine increase -This is currently well controlled Status: Inactive (5) Diastolic CHF: -Cardiac echocardiogram shows EF of 55%, no regional wall motion abnormalities, poor quality study -d/c lasix , monitor urine output closely, Flowers catheter Status: Acute (6) Gout: Allopurinol on hold for possible dress syndrome Given his generalized pain complaints, and elevated uric acid, he was started on prednisone 80 mg daily Status: Acute (7) Bilateral lower extremity edema: Minimal today Status: Acute (8) Morbid obesity with BMI of 60.0-69.9, adult: Needs to follow-up with bariatric clinic, needs to be motivated to lose weight Status: Acute (9) Difficulty in walking: PT OT, however states unable to participate due to weakness Status: Acute (10) Bilateral primary osteoarthritis of hip: PT OT, pain control Status: Acute (11) HLD (hyperlipidemia): Continue simvastatin Status: Acute (12) Unable to ambulate: PT OT Status: Acute (13) Intractable pain: -Has some calf pain bilaterally, lower extremity Doppler negative for DVT Status: Acute (14) Sepsis: Status: Acute (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 -From allopurinol versus ceftriaxone -With transaminitis, acute renal failure, multiorgan dysfunction, I cannot see a rash -W receiving prednisone Status: Acute (16) Encephalopathy: -Continues to have some episodes of confusion, alert to person, place, not to time, follows all commands, cranial nerves II to XII grossly intact -ABG did not show any significant hypoxia or hypercarbia -Continue BiPAP overnight -Unlikely to be meningitis, no neck pain, no neck stiffness -Neurochecks -Patient does have significant uremia, resolved -Septic encephalopathy, resolved -We will continue to monitor -Alert oriented x3, Status: Acute (17) Rhabdomyolysis: -Resolved -Etiology of rhabdomyolysis is uncertain, patient has been immobile, in bed, been laying on his back, area vertebral osteomyelitis as a possible etiology -Certainly compartment syndrome could be an etiology, but unlikely - CT of his pelvis did show severe left hip osteoarthritis, no significant evidence of compartment syndrome Status: Acute (18) Hyperuricemia: Status: Acute (19) Transaminitis: Improving Status: Acute (20) Ischemic hepatitis: -LFTs have stabilized -Acute hepatitis panel negative, HIV panel negative -Tylenol level negative -LOUIE, CMV, VZV, EBV pending, drug screen pending -CT scan of the abdomen pelvis with contrast liver unremarkable, gallbladder unremarkable, pancreas unremarkable, no biliary ductal dilatation -Right upper quadrant ultrasound shows hepatomegaly with diffuse fatty i nfiltration -Patient does have hypotensive episodes during dialysis, -Ischemic hepatitis likely secondary to sepsis, and hypotensive episodes during dialysis Plan: -Goal is to minimize hypotension -Minimize low blood pressures during dialysis -I have stopped all blood pressure medications -Continue to trend LFTs Status: Acute (21) Depression: -Continue Prozac - Ritalin 5 mg twice daily, to stimulate him a bit, monitor heart rates -I have consulted psychiatry Status: Acute (22) Generalized weakness: -I did discuss the case with rheumatology, to evaluate for possible polymyalgia rheumatica, polymyositis, however they feel it is fairly unlikely as patient's symptoms are much more diffuse rather than focal, not concentrating on particular muscle groups -Patient is willing to participate in physical therapy Status: Acute (23) Anemia: -Hemoglobin is down to 9.7, no overt signs of bleeding -Add Protonix 40 twice daily -Likely secondary to renal failure, possibly Zyvox -We will continue to monitor Status: Acute (24) Gout flare: -Given patient's persistently elevated leukocytosis, and elevated uric acids, complaints of generalized pain, and started on a prednisone high dose for gouty flare -His pain has improved to some degree, leukocytosis improved uric acid levels are coming down -We will hold off on allopurinol Status: Acute (25) Hypertensive urgency: -Clonidine 0.2 twice daily -Hydralazine 25 mg 3 times daily -Norvasc 10 mg daily -Metoprolol 25 twice daily -Labetalol as needed -I am trying my best to avoid nephrotoxic antihypertensive, given patient's ac miriam renal failure history Status: Acute Additional A&P Information Dvt ppx: Heparin Patient is a DNR/DNI Dispo: Pending on patient's physical therapy progress, either home or longterm, change out bariatric bed Plan for today, continue physical therapy, discharge to SNF or home health care Attestations Medical Necessity Statement*: Patient cards hospitalization for vertebral osteomyelitis, acute renal failure, ischemic hepatitis, hypertensive urgency, requiring longterm placement versus home health care Coding Level of Care Code Acute [employer] [facility] Fwd Diagnoses Vertebral osteomyelitis M46.20 Acute renal failure N17.9 RLL pneumonia J18.9 Hypertension I10 Diastolic CHF I50.30 Gout M10.9 Bilateral lower extremity edema R60.0 Morbid obesity with BMI of 60.0-69.9, adult E66.01; Z68.44 Difficulty in walking R26.2 Bilateral primary osteoarthritis of hip M16.0 HLD (hyperlipidemia) E78.5 Unable to ambulate R26.2 Intractable pain R52 Sepsis A41.9 DRESS syndrome D72.12; T50.905A Encephalopathy G93.40 Rhabdomyolysis M62.82 Hyperuricemia E79.0 Transaminitis R74.01 Ischemic hepatitis K75.9 Depression F32.9 Generalized weakness R53.1 Anemia D64.9 Gout flare M10.9 Hypertensive urgency I16.0
[2020-09-02 17:18] LABS: Glucose Point of Care 119 mg/dL (70-110)
[2020-09-02] MEDS: hyDRALAzine 25 mg Tablet PO ×2 (18:34→21:06)
[2020-09-02] MEDS: cloNIDine 0.1 mg Tablet 0.2 MG PO (18:34)
[2020-09-02] MEDS: lidocaine 2% viscous 15 ML, aluminum-mag hydrox-simethicon 30 ML, sucralfate oral liq 1 GM PO (18:36)
[2020-09-02 21:04] LABS: Glucose Point of Care 107 mg/dL (70-110)
[2020-09-02] MEDS: metoprolol tartrate 25 mg Tablet PO (21:06)
[2020-09-03] VITALS (10 sets, daily range): BP systolic 143–186; BP diastolic 73–98; PULSE 64–87; RESP 16–18; TEMP 36.4–37.1; O2SAT 95–99
[2020-09-03] MEDS: ondansetron 2 mg/ML SDV 2 mL 4 MG IVP (02:43)
--- NOTE | 2020-09-03 02:44 | PC.NURSE ---
Pt experienced two episode of emesis tonight. Pt states it came with out warning and wasnt able to ask for antiemetic. Pt states he is not feeling lightheaded or having any chest pain. No headache. States he has been feeling nauseous on and off for the last few days. Emesis is liquid without food particles and yellow in color.
[2020-09-03] MEDS: heparin 5,000 unit/mL INJ 1 mL 5000 UNIT SUBCUT ×2 (06:50→16:33)
[2020-09-03] MEDS: linezolid 600 mg Tablet PO ×2 (06:51→17:23)
[2020-09-03 07:15] LABS: Eosinophils % 0.2 %; Hematocrit 33.8 % (42.0-52.0); Hemoglobin 10.2 g/dL (11.7-16.6); Lymphocytes # 0.8 10^3/uL (0.8-4.8); Lymphocytes % 9.6 %; Mean Corpuscular HGB Conc 30.2 g/dL (30.0-36.0); Mean Corpuscular Hemoglobin 27.6 pg (28.0-34.0); Mean Corpuscular Volume 91.4 fL (80-94); Mean Platelet Volume 10.6 fL (7.4-10.4); Monocytes # 0.7 10^3/uL (0.2-0.9); Monocytes % 8.9 %; Neutrophils # 6.62 10^3/uL (1.8-7.7); Neutrophils % 80.8 %; Nucleated Red Blood Cells % 0 %; Platelet Count 135 10^3/cmm (130-400); Red Cell Distribution Width 16.6 % (12.1-15.1); White Blood Count 8.2 10^3/uL (4.0-10.0)
[2020-09-03 07:23] LABS: Glucose Point of Care 103 mg/dL (70-110)
[2020-09-03 07:23] LABS: Alanine Aminotransferase 298 U/L (0-41); Albumin Level 3.2 g/dL (3.5-5.2); Alkaline Phosphatase 239 IU/L (40-130); Anion Gap 13.1 (5-19); Aspartate Amino Transferase 140 U/L (0-40); Blood Urea Nitrogen 30 mg/dL (8-23); Calcium 9.1 mg/dL (8.5-10.5); Carbon Dioxide 26 mmol/L (22-29); Chloride 103 mmol/L (98-107); Globulin 2.5 g/dL (1.3-4.6); Glomerular Filtration Rate 74.8 mL/min (90-130); Glucose 115 mg/dL (65-115); Magnesium 1.7 mg/dL (1.7-2.3); Osmolality Calculated 293 mOsm/kg (285-295); Phosphorus 2.7 mg/dL (2.5-4.5); Potassium 4.1 mmol/L (3.5-5.1); Sodium 138 mmol/L (136-145); Total Bilirubin 0.7 mg/dL (0.15-1.2); Total Protein 5.7 g/dL (6.6-8.7)
[2020-09-03] MEDS: cloNIDine 0.1 mg Tablet 0.2 MG PO ×2 (08:35→17:23)
[2020-09-03] MEDS: sevelamer 800 mg Tablet PO (08:35)
[2020-09-03] MEDS: fluconazole 100 mg Tablet 200 MG PO (08:35)
[2020-09-03] MEDS: HYDROcodone-acetaminophen 7.5-325 mg Tablet 1 TAB PO ×2 (08:35→22:34)
[2020-09-03] MEDS: hyDRALAzine 25 mg Tablet PO ×4 (08:35→22:33)
[2020-09-03] MEDS: fluoxetine 20 mg Capsule PO (08:36)
[2020-09-03] MEDS: nystatin powder 15 gm Btl 1 APPLIC TOPICAL ×2 (08:36→17:24)
[2020-09-03] MEDS: docusate sodium 100 mg Capsule PO ×2 (08:36→17:23)
[2020-09-03] MEDS: amlodipine 10 mg Tablet PO (08:36)
[2020-09-03] MEDS: ciprofloxacin 500 mg Tablet 250 MG PO (08:36)
[2020-09-03] MEDS: polyethylene glycol 3350 Pkt 17 gm PO (08:41)
[2020-09-03] MEDS: metoclopramide 5 mg/mL SDV 2 mL IVP (08:41)
[2020-09-03] MEDS: pantoprazole DR 40 mg Tablet PO ×2 (08:41→22:34)
[2020-09-03] MEDS: metoprolol tartrate 25 mg Tablet PO (08:41)
--- NOTE | 2020-09-03 08:51 | PC.NURSE ---
PRN reglan given for nausea report by patient, patient then had 300mL of green liquid emesis. will continue to monitor.
[2020-09-03] MEDS: sucralfate 1 gm Tablet PO ×3 (11:36→22:34)
[2020-09-03 12:19] LABS: Glucose Point of Care 106 mg/dL (70-110)
--- NOTE | 2020-09-03 12:34 | PM.PN ---
Subjective Subjective: Interval history: This morning patient is having episodes of nausea, a bit bilious, some upper abdominal discomfort, either that he is doing well, having adequate bowel movements Medications: Reviewed: Yes Medication Review Details: Current Medications Acetaminophen (Acetaminophen 325 Mg Tablet) 650 mg PO Q6H PRN PRN Reason: MILD PAIN Last Admin: 08/24/20 12:29 Dose: 650 mg Documented by: Hydrocodone Bitart/Acetaminophen (Hydrocodone-Acetaminophen 7.5-325 Mg Tablet) 1 tab PO Q4H PRN PRN Reason: MODERATE PAIN Last Admin: 08/28/20 21:48 Dose: 1 tab Documented by: Amlodipine Besylate (Amlodipine 5 Mg Tablet) 5 mg PO DAILY [facility] Last Admin: 08/29/20 09:07 Dose: 5 mg Documented by: Bisacodyl (Bisacodyl 5 Mg Tablet) 10 mg PO DAILY PRN PRN Reason: CONSTIPATION Ciprofloxacin HCl (Ciprofloxacin 500 Mg Tablet) 250 mg PO DAILY [facility]; Protocol Last Admin: 08/29/20 09:07 Dose: 250 mg Documented by: Dextrose (Dextrose 50% Syringe 50 Ml) 25 ml IVP ONCE PRN; Protocol PRN Reason: hypoglycemia protocol Dextrose (Dextrose 50% Syringe 50 Ml) 50 ml IVP PRN PRN; Protocol PRN Reason: hypoglycemia protocol Dextrose (Dextrose 50% Syringe 50 Ml) 25 ml IVP ONCE PRN; Protocol PRN Reason: hypoglycemia protocol Dextrose (Dextrose 50% Syringe 50 Ml) 50 ml IVP PRN PRN; Protocol PRN Reason: hypoglycemia protocol Docusate Sodium (Docusate Sodium 100 Mg Capsule) 100 mg PO BID [facility] Last Admin: 08/29/20 09:07 Dose: 100 mg Documented by: Fluconazole (Fluconazole 100 Mg Tablet) 200 mg PO DAILY [facility] Last Admin: 08/29/20 09:06 Dose: 200 mg Documented by: Fluoxetine HCl (Fluoxetine 20 Mg Capsule) 20 mg PO DAILY [facility] Last Admin: 08/29/20 09:07 Dose: 20 mg Documented by: Glucagon (Glucagon 1 Mg/Ml Inj 1 Ml) 1 mg IM ONCE PRN; Protocol PRN Reason: Adult Acute Hypoglycemia Prot. Glucagon (Glucagon 1 Mg/Ml Inj 1 Ml) 1 mg IM ONCE PRN; Protocol PRN Reason: Adult Acute Hypoglycemia Prot. Haloperidol Lactate (Haloperidol Inj 5 Mg/Ml Inj 1 Ml) 1 mg IM Q4H PRN PRN Reason: AGITATION Heparin Sodium (Beef Lung) (Heparin 5,000 Unit/Ml Inj 1 Ml) 5,000 unit SUBCUT Q12H [facility] Last Admin: 08/29/20 05:54 Dose: 5,000 unit Documented by: Dextrose (D5w) 500 mls @ 100 mls/hr IV ONCE PRN; Protocol PRN Reason: Adult Acute Hypoglycemia Prot Dextrose (D5w) 500 mls @ 100 mls/hr IV ONCE PRN; Protocol PRN Reason: Adult Acute Hypoglycemia Prot Albumin Human (Albumin) 12.5 gm in 50 mls @ 60 mls/hr IV PRN PRN PRN Reason: Hypotension and/or symptomatic Last Infusion: 08/15/20 18:09 Dose: Infused Documented by: Albumin Human (Albumin) 12.5 gm in 50 mls @ 60 mls/hr IV PRN PRN PRN Reason: Hypotension and/or symptomatic Insulin Aspart (Insulin Aspart 100 Unit/1 Ml) 0 unit SUBCUT TIDWM [facility]; Protocol Last Admin: 08/29/20 09:07 Dose: Not Given Documented by: Linezolid (Linezolid 600 Mg Tablet) 600 mg PO Q12H [facility]; Protocol Last Admin: 08/29/20 05:54 Dose: 600 mg Documented by: Nystatin (Nystatin Powder 15 Gm Btl) 1 applic TOPICAL BID [facility] Last Admin: 08/29/20 09:07 Dose: 1 applic Documented by: Ondansetron HCl (Ondansetron 2 Mg/Ml Sdv 2 Ml) 4 mg IVP Q8H PRN PRN Reason: vomiting, or N/V if npo Pantoprazole Sodium (Pantoprazole Dr 40 Mg Tablet) 40 mg PO Q12H [facility] Last Admin: 08/29/20 09:07 Dose: 40 mg Documented by: Polyethylene Glycol (Polyethylene Glycol 3350 Pkt 17 Gm) 17 gm PO DAILY [facility] Last Admin: 08/29/20 09:07 Dose: 17 gm Documented by: Prednisone (Prednisone 20 Mg Tablet) 40 mg PO DAILY [facility] Last Admin: 08/29/20 09:06 Dose: 40 mg Documented by: Sevelamer Carbonate (Sevelamer 800 Mg Tablet) 1,600 mg PO TIDWM [facility] Last Admin: 08/29/20 09:06 Dose: 1,600 mg Documented by: Vitals/I&O/Wt Last Vital Signs Temp 98.6 F 01/16/21 07:27 Pulse 84 09/03/20 07:27 Resp 18 09/03/20 07:27 BP 163/73 09/03/20 08:35 Pulse Ox 96 09/03/20 07:27 09/02/20 09/03/20 09/03/20 22:59 06:59 14:59 Intake Total 120 / 360 480 / 840 Output Total 900 / 900 300 / 300 Balance 120 / 360 -420 / -60 -300 / -300 Physical Exam Narrative: EXAM NARRATIVE: Large pannus, morbidly obese Const: COMMON NORMALS: no acute distress and patient oriented x3 HENMT: COMMON NORMALS: normocephalic HEAD & SCALP: normocephalic Neck/C-Spine: COMMON NORMALS: no JVD Resp: COMMON NORMALS: normal respiratory effort, No retractions, No use of accessory muscles and clear to auscultation bilaterally AUSCULTATION: clear to auscultation bilaterally Cardio: COMMON NORMALS: no JVD, regular rate, regular rhythm, S1 normal heart sound present and S2 normal heart sound present RATE: regular rate RHYTHM: regular rhythm HEART SOUNDS: S1 normal heart sound present and S2 normal heart sound present GI: COMMON NORMALS: Normal to inspection, nondistended, normoactive bowel sounds present, Soft to palpation, non-tender, No hepatosplenomegaly present, no masses and no bruits PALPATION: Yes Soft to palpation and Yes No hepatosplenomegaly present Extremity: COMMON NORMALS: capillary refill normal, no clubbing, cyanosis or edema, no calf tenderness and no pedal edema Neuro: COMMON NORMALS: patient oriented x3 Psych: COMMON NORMALS: mental status grossly normal Urinary Catheter Management^: Flowers: Cath Placed During This Visit: yes, but has since been removed by the nurse Reason for Continuing Indwelling Catheter: Decision to DC Catheter Urinary Catheter Date of Insertion: 08/05/20 Urinary Catheter Time of Insertion: 15:00 Date Urinary Catheter Removed: 08/29/20 Time Urinary Catheter Discontinued: 18:35 Data : 09/03/20 06:30 09/03/20 06:30 A&P Assessment and plan (1) Vertebral osteomyelitis: -With sepsis, resolved -CT of abdomen pelvis shows:Lytic changes in the L3 and L4 vertebral bodies without adjacent inflammation. Indolent vertebral body osteomyelitis, metastatic disease or degenerative cystic changes in the vertebral bodies. -CT-of the cervical spine does not show any significant osteomyelitis -I went over CT scan findings with Dr. Cuellar, she feels that changes in vertebral bodies are likely related to osteomyelitis -Unfortunately patient cannot have a MRI given his body habitus -Unfortunately cannot perform a tagged white blood cell scan as he cannot fit in the machine -Unfortunate patient cannot have a CT-guided biopsy, due to his body habitus, difficulty accessing site -White blood cell coun WNL, ESR greater than 112 (Likely related to body habitus) -Blood pressure normotensive, afebrile, saturating in the high 90s on room air -Lactic acid within normal limits -Inflammatory markers improving -Right-sided tunneled dialysis catheter removed -All blood cultures have been unremarkable -UA shows yeast species, on fluconazole Plan: -Continue neurochecks -Continue bariatric bed -Needs to get up out of bed into bariatric chair, agrees to physical therapy -After speaking with infectious disease patient has been transitioned to p.o. Zyvox and Cipro for at least 6 weeks -Currently having some mild anemia hemoglobin 10.4, thrombocytopenia of 141, will have to monitor closely for bone marrow suppression associated with Zyvox -Fluconazole for yeast UTI -Monitor clinical progress -DNR/DNI -Heparin for DVT prophylaxis -Patient was updated -Plans for senior care versus home health care Status: Acute (2) Acute renal failure: -Etiology multifactorial's rhabdomyolysis and/or sepsis and or drug reaction and/or dress syndrome -Has not received any NSAIDs, is on lisinopril hydrochlorthiazide which has been held -Was on Lasix therapy -He does have a allergy to cephalexin, allergy unknown, patient is unsure what the allergy is, could he possibly have dress syndrome, however does not have significant eosinophilia on CBC -We will hold allopurinol as associate with dress syndrome,, Denis Diogo syndrome -CPK and uric acid are trending down -CT scan of the abdomen pelvis does not show any significant obstructive uropathy, or kidney stone, but it was a difficult study -Good urine output, creatinine 1.0 Plan: -Right tunneled dialysis catheter removed -Nephrology on consult -Urine studies no eosinophils seen -Peripheral smear toxic granulations, no eosinophil -Urine output has improved, -Nephrology consult Status: Acute (3) RLL pneumonia: Initially on chest x-ray patient was noted to have right lower lobe pneumonia for which she received treatment with ceftriaxone and azithromycin. Currently on Zyvox and Cipro CT chest negative for consolidative process, afebrile, on room air Status: Acute (4) Hypertension: -Hold Norvasc to 10 mg daily -Discontinue lisinopril given creatinine increase -This is currently well controlled Status: Inactive (5) Diastolic CHF: -Cardiac echocardiogram shows EF of 55%, no regional wall motion abnormalities, poor quality study -d/c lasix , monitor urine output closely, Flowers catheter Status: Acute (6) Gout: Allopurinol on hold for possible dress syndrome Given his generalized pain complaints, and elevated uric acid, he was started on prednisone 80 mg daily Status: Acute (7) Bilateral lower extremity edema: Minimal today Status: Acute (8) Morbid obesity with BMI of 60.0-69.9, adult: Needs to follow-up with bariatric clinic, needs to be motivated to lose weight Status: Acute (9) Difficulty in walking: PT OT, however states unable to participate due to weakness Status: Acute (10) Bilateral primary osteoarthritis of hip: PT OT, pain control Status: Acute (11) HLD (hyperlipidemia): Continue simvastatin Status: Acute (12) Unable to ambulate: PT OT Status: Acute (13) Intractable pain: -Has some calf pain bilaterally, lower extremity Doppler negative for DVT Status: Acute (14) Sepsis: Status: Acute (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 -From allopurinol versus ceftriaxone -With transaminitis, acute renal failure, multiorgan dysfunction, I cannot see a rash -W receiving prednisone Status: Acute (16) Encephalopathy: Currently alert oriented x3 -ABG did not show any significant hypoxia or hypercarbia -Continue BiPAP overnight -Neurochecks -Patient does have significant uremia, resolved -Septic encephalopathy, resolved Status: Acute (17) Rhabdomyolysis: -Resolved -Etiology of rhabdomyolysis is uncertain, patient has been immobile, in bed, been laying on his back, area vertebral osteomyelitis as a possible etiology -Certainly compartment syndrome could be an etiology, but unlikely - CT of his pelvis did show severe left hip osteoarthritis, no significant evidence of compartment syndrome Status: Acute (18) Hyperuricemia: Status: Acute (19) Transaminitis: Improving Status: Acute (20) Ischemic hepatitis: -LFTs have stabilized -Acute hepatitis panel negative, HIV panel negative -Tylenol level negative -LOUIE, CMV, VZV, EBV pending, drug screen pending -CT scan of the abdomen pelvis with contrast liver unremarkable, gallbladder unremarkable, pancreas unremarkable, no biliary ductal dilatation -Right upper quadrant ultrasound shows hepatomegaly with diffuse fatty infiltration -Patient does have hypotensive episodes during dialysis, -Ischemic hepatitis likely secondary to sepsis, and hypotensive episodes during dialysis Plan: -Goal is to minimize hypotension -Continue to trend LFTs Status: Acute (21) Depression: -Continue Prozac - Ritalin 5 mg twice daily, to stimulate him a bit, monitor heart rates -I have consulted psychiatry Status: Acute (22) Generalized weakness: -I did discuss the case with rheumatology, to evaluate for possible polymyalgia rheumatica, polymyositis, however they feel it is fairly unlikely as patient's symptoms are much more diffuse rather than focal, not concentrating on particular muscle groups -Patient is willing to participate in physical therapy Status: Acute (23) Anemia: -Hemoglobin stabilized, no overt signs of bleeding -Add Protonix 40 twice daily -Likely secondary to renal failure, possibly Zyvox -We will continue to monitor Status: Acute (24) Gout flare: -Given patient's persistently elevated leukocytosis, and elevated uric acids, complaints of generalized pain, and started on a prednisone high dose for gouty flare -His pain has improved to some degree, leukocytosis improved uric acid levels are coming down -Prednisone discontinued -We will hold off on allopurinol Status: Acute (25) Hypertensive urgency: -Clonidine 0.2 twice daily -Hydralazine 25 mg 3 times daily -Norvasc 10 mg daily -Metoprolol 50 twice daily -Labetalol as needed -I am trying my best to avoid nephrotoxic antihypertensive, given patient's acute renal failure history Status: Acute Additional A&P Information Dvt ppx: Heparin Patient is a DNR/DNI Dispo: Pending on patient's physical therapy progress, either home or senior care, change out bariatric bed Plan for today, continue physical therapy, discharge to SNF or home health care Attestations Medical Necessity Statement*: His hospitalization for vertebral osteomyelitis, acute renal failure, ischemic hepatitis, general deconditioning, anemia, hypertensive urgency Coding Level of Care Code Acute [employer] [facility] Diagnoses Vertebral osteomyelitis M46.20 Acute renal failure N17.9 RLL pneumonia J18.9 Hypertension I10 Diastolic CHF I50.30 Gout M10.9 Bilateral lower extremity edema R60.0 Morbid obesity with BMI of 60.0-69.9, adult E66.01; Z68.44 Difficulty in walking R26.2 Bilateral primary osteoarthritis of hip M16.0 HLD (hyperlipidemia) E78.5 Unable to ambulate R26.2 Intractable pain R52 Sepsis A41.9 DRESS syndrome D72.12; T50.905A Encephalopathy G93.40 Rhabdomyolysis M62.82 Hyperuricemia E79.0 Transaminitis R74.01 Ischemic hepatitis K75.9 Depression F32.9 Generalized weakness R53.1 Anemia D64.9 Gout flare M10.9 Hypertensive urgency I16.0
--- NOTE | 2020-09-03 13:15 | PC.NURSE ---
Transferred via go lift to bed per patient request, max assist, repositioned with pillows, sacrum cleaned and applied barrier cream, in room, call light in reach, side rails up x2.
[2020-09-03 17:00] LABS: Glucose Point of Care 101 mg/dL (70-110)
[2020-09-03 21:08] LABS: Glucose Point of Care 120 mg/dL (70-110)
[2020-09-03] MEDS: metoprolol tartrate 50 mg Tablet PO (22:33)
[2020-09-04] VITALS (13 sets, daily range): BP systolic 116–149; BP diastolic 72–80; PULSE 52–69; RESP 16–20; TEMP 36.3–36.8; O2SAT 95–99
[2020-09-04] MEDS: heparin 5,000 unit/mL INJ 1 mL 5000 UNIT SUBCUT ×2 (05:54→17:19)
[2020-09-04] MEDS: linezolid 600 mg Tablet PO ×2 (05:55→17:18)
[2020-09-04 06:14] LABS: Basophils % 0.3 %; Eosinophils # 0.1 10^3/uL (0.0-0.8); Eosinophils % 1.3 %; Hematocrit 33.8 % (42.0-52.0); Hemoglobin 10.3 g/dL (11.7-16.6); Lymphocytes # 1.3 10^3/uL (0.8-4.8); Lymphocytes % 22.1 %; Mean Corpuscular HGB Conc 30.5 g/dL (30.0-36.0); Mean Corpuscular Hemoglobin 28.1 pg (28.0-34.0); Mean Corpuscular Volume 92.1 fL (80-94); Mean Platelet Volume 10.7 fL (7.4-10.4); Monocytes # 0.6 10^3/uL (0.2-0.9); Monocytes % 10.2 %; Neutrophils # 3.85 10^3/uL (1.8-7.7); Neutrophils % 64.8 %; Nucleated Red Blood Cells % 0 %; Platelet Count 144 10^3/cmm (130-400); Red Blood Count 3.67 10^6/uL (4.1-5.3); Red Cell Distribution Width 16.7 % (12.1-15.1)
[2020-09-04 06:35] LABS: Alanine Aminotransferase 360 U/L (0-41); Alkaline Phosphatase 243 IU/L (40-130); Aspartate Amino Transferase 162 U/L (0-40); Blood Urea Nitrogen 32 mg/dL (8-23); Carbon Dioxide 26 mmol/L (22-29); Chloride 100 mmol/L (98-107); Globulin 2.7 g/dL (1.3-4.6); Glomerular Filtration Rate 55.2 mL/min (90-130); Glucose 108 mg/dL (65-115); Magnesium 1.8 mg/dL (1.7-2.3); Osmolality Calculated 283 mOsm/kg (285-295); Phosphorus 2.6 mg/dL (2.5-4.5); Sodium 133 mmol/L (136-145); Total Bilirubin 0.9 mg/dL (0.15-1.2); Total Protein 5.7 g/dL (6.6-8.7)
[2020-09-04 06:39] LABS: Anion Gap 11.7 (5-19)
[2020-09-04 06:40] LABS: Potassium 4.7 mmol/L (3.5-5.1)
[2020-09-04 06:52] LABS: Glucose Point of Care 104 mg/dL (70-110)
[2020-09-04] MEDS: ciprofloxacin 500 mg Tablet 250 MG PO (09:12)
[2020-09-04] MEDS: HYDROcodone-acetaminophen 7.5-325 mg Tablet 1 TAB PO (09:12)
[2020-09-04] MEDS: polyethylene glycol 3350 Pkt 17 gm PO (09:12)
[2020-09-04] MEDS: cloNIDine 0.1 mg Tablet 0.2 MG PO ×2 (09:13→17:19)
[2020-09-04] MEDS: sucralfate 1 gm Tablet PO ×4 (09:13→22:37)
[2020-09-04] MEDS: fluconazole 100 mg Tablet 200 MG PO (09:13)
[2020-09-04] MEDS: hyDRALAzine 25 mg Tablet PO ×3 (09:13→17:19)
[2020-09-04] MEDS: metoprolol tartrate 50 mg Tablet PO (09:14)
[2020-09-04] MEDS: fluoxetine 20 mg Capsule PO (09:14)
[2020-09-04] MEDS: pantoprazole DR 40 mg Tablet PO ×2 (09:14→22:38)
[2020-09-04] MEDS: nystatin powder 15 gm Btl 1 APPLIC TOPICAL ×2 (09:14→17:21)
[2020-09-04] MEDS: amlodipine 10 mg Tablet PO (09:14)
[2020-09-04] MEDS: docusate sodium 100 mg Capsule PO ×2 (09:14→17:19)
[2020-09-04] MEDS: sodium chloride 0.9% 1,000 ML 75 ML IV ×2 (09:23→22:38)
--- NOTE | 2020-09-04 10:10 | PC.SOCIAL ---
08/31/2020 IM Followup not given to patient since not within two days of DC.
--- NOTE | 2020-09-04 10:10 | PC.SOCIAL ---
09/02/2020 IM follow up explained to patient on this date and copy provided no questions voiced.
--- NOTE | 2020-09-04 10:35 | PC.SOCIAL ---
IM follow up explained and copy provided to patient. Verbalized no questions or concerns.
--- NOTE | 2020-09-04 10:55 | PM.PN ---
Subjective Subjective: Interval history: This morning patient was examined, nausea vomiting is resolved, he is feeling better, is up into a wheelchair for 3 hours Medications: Reviewed: Yes Medication Review Details: Current Medications Acetaminophen (Acetaminophen 325 Mg Tablet) 650 mg PO Q6H PRN PRN Reason: MILD PAIN Last Admin: 08/24/20 12:29 Dose: 650 mg Documented by: Hydrocodone Bitart/Acetaminophen (Hydrocodone-Acetaminophen 7.5-325 Mg Tablet) 1 tab PO Q4H PRN PRN Reason: MODERATE PAIN Last Admin: 08/28/20 21:48 Dose: 1 tab Documented by: Amlodipine Besylate (Amlodipine 5 Mg Tablet) 5 mg PO DAILY [facility] Last Admin: 08/29/20 09:07 Dose: 5 mg Documented by: Bisacodyl (Bisacodyl 5 Mg Tablet) 10 mg PO DAILY PRN PRN Reason: CONSTIPATION Ciprofloxacin HCl (Ciprofloxacin 500 Mg Tablet) 250 mg PO DAILY [facility]; Protocol Last Admin: 08/29/20 09:07 Dose: 250 mg Documented by: Dextrose (Dextrose 50% Syringe 50 Ml) 25 ml IVP ONCE PRN; Protocol PRN Reason: hypoglycemia protocol Dextrose (Dextrose 50% Syringe 50 Ml) 50 ml IVP PRN PRN; Protocol PRN Reason: hypoglycemia protocol Dextrose (Dextrose 50% Syringe 50 Ml) 25 ml IVP ONCE PRN; Protocol PRN Reason: hypoglycemia protocol Dextrose (Dextrose 50% Syringe 50 Ml) 50 ml IVP PRN PRN; Protocol PRN Reason: hypoglycemia protocol Docusate Sodium (Docusate Sodium 100 Mg Capsule) 100 mg PO BID [facility] Last Admin: 08/29/20 09:07 Dose: 100 mg Documented by: Fluconazole (Fluconazole 100 Mg Tablet) 200 mg PO DAILY [facility] Last Admin: 08/29/20 09:06 Dose: 200 mg Documented by: Fluoxetine HCl (Fluoxetine 20 Mg Capsule) 20 mg PO DAILY [facility] Last Admin: 08/29/20 09:07 Dose: 20 mg Documented by: Glucagon (Glucagon 1 Mg/Ml Inj 1 Ml) 1 mg IM ONCE PRN; Protocol PRN Reason: Adult Acute Hypoglycemia Prot. Glucagon (Glucagon 1 Mg/Ml Inj 1 Ml) 1 mg IM ONCE PRN; Protocol PRN Reason: Adult Acute Hypoglycemia Prot. Haloperidol Lactate (Haloperidol Inj 5 Mg/Ml Inj 1 Ml) 1 mg IM Q4H PRN PRN Reason: AGITATION Heparin Sodium (Beef Lung) (Heparin 5,000 Unit/Ml Inj 1 Ml) 5,000 unit SUBCUT Q12H INA Last Admin: 08/29/20 05:54 Dose: 5,000 unit Documented by: Dextrose (D5w) 500 mls @ 100 mls/hr IV ONCE PRN; Protocol PRN Reason: Adult Acute Hypoglycemia Prot Dextrose (D5w) 500 mls @ 100 mls/hr IV ONCE PRN; Protocol PRN Reason: Adult Acute Hypoglycemia Prot Albumin Human (Albumin) 12.5 gm in 50 mls @ 60 mls/hr IV PRN PRN PRN Reason: Hypotension and/or symptomatic Last Infusion: 08/15/20 18:09 Dose: Infused Documented by: Albumin Human (Albumin) 12.5 gm in 50 mls @ 60 mls/hr IV PRN PRN PRN Reason: Hypotension and/or symptomatic Insulin Aspart (Insulin Aspart 100 Unit/1 Ml) 0 unit SUBCUT TIDWM INA; Protocol Last Admin: 08/29/20 09:07 Dose: Not Given Documented by: Linezolid (Linezolid 600 Mg Tablet) 600 mg PO Q12H INA; Protocol Last Admin: 08/29/20 05:54 Dose: 600 mg Documented by: Nystatin (Nystatin Powder 15 Gm Btl) 1 applic TOPICAL BID [facility] Last Admin: 08/29/20 09:07 Dose: 1 applic Documented by: Ondansetron HCl (Ondansetron 2 Mg/Ml Sdv 2 Ml) 4 mg IVP Q8H PRN PRN Reason: vomiting, or N/V if npo Pantoprazole Sodium (Pantoprazole Dr 40 Mg Tablet) 40 mg PO Q12H INA Last Admin: 08/29/20 09:07 Dose: 40 mg Documented by: Polyethylene Glycol (Polyethylene Glycol 3350 Pkt 17 Gm) 17 gm PO DAILY INA Last Admin: 08/29/20 09:07 Dose: 17 gm Documented by: Prednisone (Prednisone 20 Mg Tablet) 40 mg PO DAILY INA Last Admin: 08/29/20 09:06 Dose: 40 mg Documented by: Sevelamer Carbonate (Sevelamer 800 Mg Tablet) 1,600 mg PO TIDWM INA Last Admin: 08/29/20 09:06 Dose: 1,600 mg Documented by: Vitals/I&O/Wt Last Vital Signs Temp 97.8 F 09/04/20 07:30 Pulse 68 09/04/20 09:38 Resp 18 09/04/20 07:30 BP 118/72 09/04/20 09:13 Pulse Ox 95 09/04/20 09:38 09/03/20 09/04/20 09/04/20 22:59 06:59 14:59 Intake Total 716 / 952 Output Total 300 / 600 100 / 700 Balance -300 / -364 616 / 252 Physical Exam Narrative: EXAM NARRATIVE: Large pannus, morbidly obese Const: COMMON NORMALS: no acute distress and patient oriented x3 HENMT: COMMON NORMALS: normocephalic HEAD & SCALP: normocephalic Neck/C-Spine: COMMON NORMALS: no JVD Resp: COMMON NORMALS: normal respiratory effort, No retractions, No use of accessory muscles and clear to auscultation bilaterally AUSCULTATION: clear to auscultation bilaterally Cardio: COMMON NORMALS: no JVD, regular rate, regular rhythm, S1 normal heart sound present and S2 normal heart sound present RATE: regular rate RHYTHM: regular rhythm HEART SOUNDS: S1 normal heart sound present and S2 normal heart sound present GI: COMMON NORMALS: Normal to inspection, nondistended, normoactive bowel sounds present, Soft to palpation, non-tender, No hepatosplenomegaly present, no masses and no bruits PALPATION: Yes Soft to palpation and Yes No hepatosplenomegaly present Extremity: COMMON NORMALS: capillary refill normal, no clubbing, cyanosis or edema, no calf tenderness and no pedal edema Neuro: COMMON NORMALS: patient oriented x3 Psych: COMMON NORMALS: mental status grossly normal Urinary Catheter Management^: Flowers: Cath Placed During This Visit: yes, but has since been removed by the nurse Reason for Continuing Indwelling Catheter: Decision to DC Catheter Urinary Catheter Date of Insertion: 08/05/20 Urinary Catheter Time of Insertion: 15:00 Date Urinary Catheter Removed: 08/29/20 Time Urinary Catheter Discontinued: 18:35 Data : 09/04/20 06:02 09/04/20 06:02 A&P Assessment and plan (1) Vertebral osteomyelitis: -With sepsis, resolved -CT of abdomen pelvis shows:Lytic changes in the L3 and L4 vertebral bodies without adjacent inflammation. Indolent vertebral body osteomyelitis, metastatic disease or degenerative cystic changes in the vertebral bodies. -CT-of the cervical spine does not show any significant osteomyelitis -I went over CT scan findings with Dr. Cuellar, she feels that changes in vertebral bodies are likely related to osteomyelitis -Unfortunately patient cannot have a MRI given his body habitus -Unfortunately cannot perform a tagged white blood cell scan as he cannot fit in the machine -Unfortunate patient cannot have a CT-guided biopsy, due to his body habitus, difficulty accessing site -White blood cell coun WNL, ESR greater than 112 (Likely related to body habitus) -Blood pressure normotensive, afebrile, saturating in the high 90s on room air -Lactic acid within normal limits -Inflammatory markers improving -Right-sided tunneled dialysis catheter removed -All blood cultures have been unremarkable -UA shows yeast species, on fluconazole Plan: -Continue neurochecks -Continue bariatric bed -Needs to get up out of bed into bariatric chair, agrees to physical therapy -After speaking with infectious disease patient has been transitioned to p.o. Zyvox and Cipro for at least 6 weeks -Currently having some mild anemia hemoglobin 10.3, thrombocytopenia of 144, will have to monitor closely for bone marrow suppression associated with Zyvox -Fluconazole for yeast UTI -Monitor clinical progress -DNR/DNI -Heparin for DVT prophylaxis -Patient was updated -Plans for long term versus home health care Status: Acute (2) Acute renal failure: -Etiology multifactorial's rhabdomyolysis and/or sepsis and or drug reaction and/or dress syndrome -Has not received any NSAIDs, is on lisinopril hydrochlorthiazide which has been held -Was on Lasix therapy -He does have a allergy to cephalexin, allergy unknown, patient is unsure what the allergy is, could he possibly have dress syndrome, however does not have significant eosinophilia on CBC -We will hold allopurinol as associate with dress syndrome,, Denis Diogo syndrome -CPK and uric acid are trending down -CT scan of the abdomen pelvis does not show any significant obstructive uropathy, or kidney stone, but it was a difficult study -Good urine output, creatinine 1.3 Plan: -Right tunneled dialysis catheter removed -Nephrology on consult -Urine studies no eosinophils seen -Peripheral smear toxic granulations, no eosinophil -Urine output has improved, -Nephrology consult -A bit dehydrated today, creatinine 1.3, sodium 133, will give IV fluids Status: Acute (3) RLL pneumonia: Initially on chest x-ray patient was noted to have right lower lobe pneumonia for which she received treatment with ceftriaxone and azithromycin. Currently on Zyvox and Cipro CT chest negative for consolidative process, afebrile, on room air Status: Acute (4) Hypertension: -Hold Norvasc to 10 mg daily -Discontinue lisinopril given creatinine increase -This is currently well controlled Status: Inactive (5) Diastolic CHF: -Cardiac echocardiogram shows EF of 55%, no regional wall motion abnormalities, poor quality study -Flowers catheter removed Status: Acute (6) Gout: Allopurinol on hold for possible dress syndrome Given his generalized pain complaints, and elevated uric acid, he was started on prednisone 80 mg daily, which has been stopped Status: Acute (7) Bilateral lower extremity edema: Minimal today Status: Acute (8) Morbid obesity with BMI of 60.0-69.9, adult: Needs to follow-up with bariatric clinic, needs to be motivated to lose weight Status: Acute (9) Difficulty in walking: PT OT, however states unable to participate due to weakness Status: Acute (10) Bilateral primary osteoarthritis of hip: PT OT, pain control Status: Acute (11) HLD (hyperlipidemia): Continue simvastatin Status: Acute (12) Unable to ambulate: PT OT Status: Acute (13) Intractable pain: -Has some calf pain bilaterally, lower extremity Doppler negative for DVT Status: Acute (14) Sepsis: Status: Acute (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 -From allopurinol versus ceftriaxone -With transaminitis, acute renal failure, multiorgan dysfunction, I cannot see a rash -Finished prednisone Status: Acute (16) Encephalopathy: Currently alert oriented x3 -ABG did not show any significant hypoxia or hypercarbia -Continue BiPAP overnight -Neurochecks -Patient does have significant uremia, resolved -Septic encephalopathy, resolved Status: Acute (17) Rhabdomyolysis: -Resolved -Etiology of rhabdomyolysis is uncertain, patient has been immobile, in bed, been laying on his back, area vertebral osteomyelitis as a possible etiology -Certainly compartment syndrome could be an etiology, but unlikely - CT of his pelvis did show severe left hip osteoarthritis, no significant evidence of compartment syndrome Status: Acute (18) Hyperuricemia: Status: Acute (19) Transaminitis: Improving Status: Acute (20) Ischemic hepatitis: -LFTs have stabilized -Acute hepatitis panel negative, HIV panel negative -Tylenol level negative -LOUIE, CMV, VZV, EBV pending, drug screen pending -CT scan of the abdomen pelvis with contrast liver unremarkable, gallbladder unremarkable, pancreas unremarkable, no biliary ductal dilatation -Right upper quadrant ultrasound shows hepatomegaly with diffuse fatty infiltration -Patient does have hypotensive episodes during dialysis, -Ischemic hepatitis likely secondary to sepsis, and hypotensive episodes during dialysis Plan: -Goal is to minimize hypotension -Continue to trend LFTs Status: Acute (21) Depression: -Continue Prozac -I have consulted psychiatry Status: Acute (22) Generalized weakness: -I did discuss the case with rheumatology, to evaluate for possible polymyalgia rheumatica, polymyositis, however they feel it is fairly unlikely as patient's symptoms are much more diffuse rather than focal, not concentrating on particular muscle groups -Patient is willing to participate in physical therapy Status: Acute (23) Anemia: -Hemoglobin stabilized, no overt signs of bleeding -Add Protonix 40 twice daily -Likely secondary to renal failure, possibly Zyvox -We will continue to monitor Status: Acute (24) Gout flare: -Resolved -Given patient's persistently elevated leukocytosis, and elevated uric acids, complaints of generalized pain, and started on a prednisone high dose for gouty flare -His pain has improved to some degree, leukocytosis improved uric acid levels are coming down -Prednisone discontinued -We will hold off on allopurinol Status: Acute (25) Hypertensive urgency: -Clonidine 0.2 twice daily -Hydralazine 25 mg 3 times daily -Norvasc 10 mg daily -Metoprolol 50 twice daily -Labetalol as needed -I am trying my best to avoid nephrotoxic antihypertensive, given patient's acute renal failure history Status: Acute Additional A&P Information Dvt ppx: Heparin Patient is a DNR/DNI Dispo: Pending on patient's physical therapy progress, either home or long term, change out bariatric bed Plan for today, continue physical therapy, discharge to SNF or home health care Attestations Medical Necessity Statement*: Patient requires hospitalization vertebral osteomyelitis, acute renal failure, ischemic hepatitis, hypertensive urgency Coding Level of Care Code Acute [employer] [facility] Fw Diagnoses Vertebral osteomyelitis M46.20 Acute renal failure N17.9 RLL pneumonia J18.9 Hypertension I10 Diastolic CHF I50.30 Gout M10.9 Bilateral lower extremity edema R60.0 Morbid obesity with BMI of 60.0-69.9, adult E66.01; Z68.44 Difficulty in walking R26.2 Bilateral primary osteoarthritis of hip M16.0 HLD (hyperlipidemia) E78.5 Unable to ambulate R26.2 Intractable pain R52 Sepsis A41.9 DRESS syndrome D72.12; T50.905A Encephalopathy G93.40 Rhabdomyolysis M62.82 Hyperuricemia E79.0 Transaminitis R74.01 Ischemic hepatitis K75.9 Depression F32.9 Generalized weakness R53.1 Anemia D64.9 Gout flare M10.9 Hypertensive urgency I16.0
[2020-09-04 10:56] LABS: Glucose Point of Care 123 mg/dL (70-110)
[2020-09-04 16:59] LABS: Glucose Point of Care 92 mg/dL (70-110)
[2020-09-04 20:54] LABS: Glucose Point of Care 108 mg/dL (70-110)
[2020-09-05] VITALS (11 sets, daily range): BP systolic 123–164; BP diastolic 64–79; PULSE 62–85; RESP 18–20; TEMP 36.3–36.8; O2SAT 97–99
[2020-09-05] MEDS: heparin 5,000 unit/mL INJ 1 mL 5000 UNIT SUBCUT ×2 (06:27→17:34)
[2020-09-05] MEDS: linezolid 600 mg Tablet PO ×2 (06:27→17:36)
[2020-09-05] MEDS: sucralfate 1 gm Tablet PO ×4 (06:27→21:13)
[2020-09-05 06:39] LABS: Basophils % 0.3 %; Eosinophils # 0.1 10^3/uL (0.0-0.8); Eosinophils % 1.5 %; Hematocrit 34.1 % (42.0-52.0); Hemoglobin 10.4 g/dL (11.7-16.6); Lymphocytes # 1.5 10^3/uL (0.8-4.8); Lymphocytes % 19.6 %; Mean Corpuscular HGB Conc 30.5 g/dL (30.0-36.0); Mean Corpuscular Hemoglobin 28.2 pg (28.0-34.0); Mean Corpuscular Volume 92.4 fL (80-94); Mean Platelet Volume 10.9 fL (7.4-10.4); Monocytes # 0.7 10^3/uL (0.2-0.9); Monocytes % 9.6 %; Neutrophils # 5.06 10^3/uL (1.8-7.7); Neutrophils % 67.3 %; Nucleated Red Blood Cells % 0 %; Platelet Count 164 10^3/cmm (130-400); Red Blood Count 3.69 10^6/uL (4.1-5.3); Red Cell Distribution Width 17.1 % (12.1-15.1); White Blood Count 7.5 10^3/uL (4.0-10.0)
[2020-09-05 06:46] LABS: Glucose Point of Care 93 mg/dL (70-110)
[2020-09-05 07:05] LABS: Alanine Aminotransferase 421 U/L (0-41); Albumin Level 3.3 g/dL (3.5-5.2); Alkaline Phosphatase 299 IU/L (40-130); Anion Gap 14.1 (5-19); Aspartate Amino Transferase 216 U/L (0-40); Blood Urea Nitrogen 29 mg/dL (8-23); Carbon Dioxide 23 mmol/L (22-29); Chloride 100 mmol/L (98-107); Globulin 2.6 g/dL (1.3-4.6); Glucose 99 mg/dL (65-115); Magnesium 1.7 mg/dL (1.7-2.3); Osmolality Calculated 282 mOsm/kg (285-295); Phosphorus 2.6 mg/dL (2.5-4.5); Potassium 4.1 mmol/L (3.5-5.1); Sodium 133 mmol/L (136-145); Total Bilirubin 0.9 mg/dL (0.15-1.2); Total Protein 5.9 g/dL (6.6-8.7)
[2020-09-05] MEDS: ciprofloxacin 500 mg Tablet 250 MG PO (08:51)
[2020-09-05] MEDS: fluconazole 100 mg Tablet 200 MG PO (08:52)
[2020-09-05] MEDS: cloNIDine 0.1 mg Tablet 0.2 MG PO ×2 (08:52→17:36)
[2020-09-05] MEDS: amlodipine 10 mg Tablet PO (08:52)
[2020-09-05] MEDS: polyethylene glycol 3350 Pkt 17 gm PO (08:53)
[2020-09-05] MEDS: pantoprazole DR 40 mg Tablet PO ×2 (08:53→21:14)
[2020-09-05] MEDS: hyDRALAzine 25 mg Tablet PO ×4 (08:53→21:13)
[2020-09-05] MEDS: docusate sodium 100 mg Capsule PO ×2 (08:53→17:36)
[2020-09-05] MEDS: metoprolol tartrate 50 mg Tablet PO ×2 (08:53→21:13)
[2020-09-05] MEDS: fluoxetine 20 mg Capsule PO (08:53)
[2020-09-05] MEDS: nystatin powder 15 gm Btl 1 APPLIC TOPICAL ×2 (08:53→17:37)
[2020-09-05 10:39] LABS: Glucose Point of Care 116 mg/dL (70-110)
--- NOTE | 2020-09-05 11:09 | P.PN_ITS ---
Subjective Subjective: Interval history: No acute event overnight.Vitals and labs have been reviewed. Medications: Reviewed: Yes Medication Review Details: Current Medications Acetaminophen (Acetaminophen 325 Mg Tablet) 650 mg PO Q6H PRN PRN Reason: MILD PAIN Last Admin: 08/24/20 12:29 Dose: 650 mg Documented by: Hydrocodone Bitart/Acetaminophen (Hydrocodone-Acetaminophen 7.5-325 Mg Tablet) 1 tab PO Q4H PRN PRN Reason: MODERATE PAIN Last Admin: 08/28/20 21:48 Dose: 1 tab Documented by: Amlodipine Besylate (Amlodipine 5 Mg Tablet) 5 mg PO DAILY [facility] Last Admin: 08/29/20 09:07 Dose: 5 mg Documented by: Bisacodyl (Bisacodyl 5 Mg Tablet) 10 mg PO DAILY PRN PRN Reason: CONSTIPATION Ciprofloxacin HCl (Ciprofloxacin 500 Mg Tablet) 250 mg PO DAILY [facility]; Protocol Last Admin: 08/29/20 09:07 Dose: 250 mg Documented by: Dextrose (Dextrose 50% Syringe 50 Ml) 25 ml IVP ONCE PRN; Protocol PRN Reason: hypoglycemia protocol Dextrose (Dextrose 50% Syringe 50 Ml) 50 ml IVP PRN PRN; Protocol PRN Reason: hypoglycemia protocol Dextrose (Dextrose 50% Syringe 50 Ml) 25 ml IVP ONCE PRN; Protocol PRN Reason: hypoglycemia protocol Dextrose (Dextrose 50% Syringe 50 Ml) 50 ml IVP PRN PRN; Protocol PRN Reason: hypoglycemia protocol Docusate Sodium (Docusate Sodium 100 Mg Capsule) 100 mg PO BID [facility] Last Admin: 08/29/20 09:07 Dose: 100 mg Documented by: Fluconazole (Fluconazole 100 Mg Tablet) 200 mg PO DAILY [facility] Last Admin: 08/29/20 09:06 Dose: 200 mg Documented by: Fluoxetine HCl (Fluoxetine 20 Mg Capsule) 20 mg PO DAILY [facility] Last Admin: 08/29/20 09:07 Dose: 20 mg Documented by: Glucagon (Glucagon 1 Mg/Ml Inj 1 Ml) 1 mg IM ONCE PRN; Protocol PRN Reason: Adult Acute Hypoglycemia Prot. Glucagon (Glucagon 1 Mg/Ml Inj 1 Ml) 1 mg IM ONCE PRN; Protocol PRN Reason: Adult Acute Hypoglycemia Prot. Haloperidol Lactate (Haloperidol Inj 5 Mg/Ml Inj 1 Ml) 1 mg IM Q4H PRN PRN Reason: AGITATION Heparin Sodium (Beef Lung) (Heparin 5,000 Unit/Ml Inj 1 Ml) 5,000 unit SUBCUT Q12H INA Last Admin: 08/29/20 05:54 Dose: 5,000 unit Documented by: Dextrose (D5w) 500 mls @ 100 mls/hr IV ONCE PRN; Protocol PRN Reason: Adult Acute Hypoglycemia Prot Dextrose (D5w) 500 mls @ 100 mls/hr IV ONCE PRN; Protocol PRN Reason: Adult Acute Hypoglycemia Prot Albumin Human (Albumin) 12.5 gm in 50 mls @ 60 mls/hr IV PRN PRN PRN Reason: Hypotension and/or symptomatic Last Infusion: 08/15/20 18:09 Dose: Infused Documented by: Albumin Human (Albumin) 12.5 gm in 50 mls @ 60 mls/hr IV PRN PRN PRN Reason: Hypotension and/or symptomatic Insulin Aspart (Insulin Aspart 100 Unit/1 Ml) 0 unit SUBCUT TIDWM [facility]; Protocol Last Admin: 08/29/20 09:07 Dose: Not Given Documented by: Linezolid (Linezolid 600 Mg Tablet) 600 mg PO Q12H [facility]; Protocol Last Admin: 08/29/20 05:54 Dose: 600 mg Documented by: Nystatin (Nystatin Powder 15 Gm Btl) 1 applic TOPICAL BID [facility] Last Admin: 08/29/20 09:07 Dose: 1 applic Documented by: Ondansetron HCl (Ondansetron 2 Mg/Ml Sdv 2 Ml) 4 mg IVP Q8H PRN PRN Reason: vomiting, or N/V if npo Pantoprazole Sodium (Pantoprazole Dr 40 Mg Tablet) 40 mg PO Q12H [facility] Last Admin: 08/29/20 09:07 Dose: 40 mg Documented by: Polyethylene Glycol (Polyethylene Glycol 3350 Pkt 17 Gm) 17 gm PO DAILY INA Last Admin: 08/29/20 09:07 Dose: 17 gm Documented by: Prednisone (Prednisone 20 Mg Tablet) 40 mg PO DAILY [facility] Last Admin: 08/29/20 09:06 Dose: 40 mg Documented by: Sevelamer Carbonate (Sevelamer 800 Mg Tablet) 1,600 mg PO TIDWM [facility] Last Admin: 08/29/20 09:06 Dose: 1,600 mg Documented by: Vitals/I&O/Wt Last Vital Signs Temp 98.2 F 09/05/20 07:30 Pulse 72 09/05/20 07:30 Resp 18 09/05/20 07:30 BP 128/64 09/05/20 08:52 Pulse Ox 98 09/05/20 07:30 09/04/20 09/05/20 09/05/20 22:59 06:59 14:59 Intake Total 993.75 / 993.75 480 / 480 Output Total 750 / 750 200 / 950 100 / 100 Balance 243.75 / 243.75 -200 / 43.75 380 / 380 Physical Exam Const: COMMON NORMALS: patient oriented x3 HENMT: COMMON NORMALS: normocephalic and atraumatic HEAD & SCALP: normocephalic and atraumatic Chest: COMMONS NORMALS: normal inspection of the chest CHEST: Yes Symmetrical chest wall rise Resp: COMMON NORMALS: normal respiratory effort and clear to auscultation bilaterally EFFORT & INSPECTION: Yes symmetric chest movement AUSCULTATION: clear to auscultation bilaterally Cardio: COMMON NORMALS: regular rate, regular rhythm, S1 normal heart sound present, S2 normal heart sound present, No gallops present (Cardio), No murmurs present (Cardio), No rub (Cardio) and Peripheral pulses 2+ throughout RATE: regular rate RHYTHM: regular rhythm HEART SOUNDS: S1 normal heart sound present and S2 normal heart sound present PERIPHERAL PULSES: Peripheral pulses 2+ throughout GI: COMMON NORMALS: Normal to inspection, nondistended, normoactive bowel sounds present, Soft to palpation, non-tender, No hepatosplenomegaly present and no masses AUSCULTATION: Yes normoactive bowel sounds PALPATION: Yes Soft to palpation and Yes No hepatosplenomegaly present RECTAL EXAM: Yes deferred Extremity: COMMON NORMALS: no clubbing, cyanosis or edema and no pedal edema Neuro: COMMON NORMALS: patient oriented x3 Urinary Catheter Management^: Flowers: Cath Placed During This Visit: yes, but has since been removed by the nurse Reason for Continuing Indwelling Catheter: Decision to DC Catheter Urinary Catheter Date of Insertion: 08/05/20 Urinary Catheter Time of Insertion: 15:00 Date Urinary Catheter Removed: 08/29/20 Time Urinary Catheter Discontinued: 18:35 Data : 09/05/20 06:24 09/05/20 06:24 A&P Assessment and plan (1) Vertebral osteomyelitis: -With sepsis, resolved -CT of abdomen pelvis shows:Lytic changes in the L3 and L4 vertebral bodies without adjacent inflammation. Indolent vertebral body osteomyelitis, metastatic disease or degenerative cystic changes in the vertebral bodies. -CT-of the cervical spine does not show any significant osteomyelitis -I went over CT scan findings with Dr. Cuellar, she feels that changes in vertebral bodies are likely related to osteomyelitis -Unfortunately patient cannot have a MRI given his body habitus -Unfortunately cannot perform a tagged white blood cell scan as he cannot fit in the machine -Unfortunate patient cannot have a CT-guided biopsy, due to his body habitus, difficulty accessing site -White blood cell coun WNL, ESR greater than 112 (Likely related to body habitus) -Blood pressure normotensive, afebrile, saturating in the high 90s on room air -Lactic acid within normal limits -Inflammatory markers improving -Right-sided tunneled dialysis catheter removed -All blood cultures have been unremarkable -UA shows yeast species, on fluconazole Plan: -Continue neurochecks -Continue bariatric bed -Needs to get up out of bed into bariatric chair, agrees to physical therapy -After speaking with infectious disease patient has been transitioned to p.o. Zyvox and Cipro for at least 6 weeks -Currently having some mild anemia hemoglobin 10.3, thrombocytopenia of 144, will have to monitor closely for bone marrow suppression associated with Zyvox -Fluconazole for yeast UTI -Monitor clinical progress -DNR/DNI -Heparin for DVT prophylaxis -Patient was updated -Plans for care home versus home health care Status: Acute (2) Acute renal failure: -Etiology multifactorial's rhabdomyolysis and/or sepsis and or drug reaction and/or dress syndrome -Has not received any NSAIDs, is on lisinopril hydrochlorthiazide which has been held -Was on Lasix therapy -He does have a allergy to cephalexin, allergy unknown, patient is unsure what the allergy is, could he possibly have dress syndrome, however does not have significant eosinophilia on CBC -We will hold allopurinol as associate with dress syndrome,, Denis Diogo syndrome -CPK and uric acid are trending down -CT scan of the abdomen pelvis does not show any significant obstructive u ropathy, or kidney stone, but it was a difficult study -Good urine output, creatinine 1.3 Plan: -Right tunneled dialysis catheter removed -Nephrology on consult -Urine studies no eosinophils seen -Peripheral smear toxic granulations, no eosinophil -Urine output has improved, -Nephrology consult -A bit dehydrated today, creatinine 1.3, sodium 133, will give IV fluids Status: Acute (3) RLL pneumonia: Initially on chest x-ray patient was noted to have right lower lobe pneumonia for which she received treatment with ceftriaxone and azithromycin. Currently on Zyvox and Cipro CT chest negative for consolidative process, afebrile, on room air Status: Acute (4) Hypertension: -Hold Norvasc to 10 mg daily -Discontinue lisinopril given creatinine increase -This is currently well controlled Status: Inactive (5) Diastolic CHF: -Cardiac echocardiogram shows EF of 55%, no regional wall motion abnormalities, poor quality study -Flowers catheter removed Status: Acute (6) Gout: Allopurinol on hold for possible dress syndrome Given his generalized pain complaints, and elevated uric acid, he was started on prednisone 80 mg daily, which has been stopped Status: Acute (7) Bilateral lower extremity edema: Minimal today Status: Acute (8) Morbid obesity with BMI of 60.0-69.9, adult: Needs to follow-up with bariatric clinic, needs to be motivated to lose weight Status: Acute (9) Difficulty in walking: PT OT, however states unable to participate due to weakness Status: Acute (10) Bilateral primary osteoarthritis of hip: PT OT, pain control Status: Acute (11) HLD (hyperlipidemia): Continue simvastatin Status: Acute (12) Unable to ambulate: PT OT Status: Acute (13) Intractable pain: -Has some calf pain bilaterally, lower extremity Doppler negative for DVT Status: Acute (14) Sepsis: Status: Acute (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 -From allopurinol versus ceftriaxone -With transaminitis, acute renal failure, multiorgan dysfunction, I cannot see a rash -Finished prednisone Status: Acute (16) Encephalopathy: Currently alert oriented x3 -ABG did not show any significant hypoxia or hypercarbia -Continue BiPAP overnight -Neurochecks -Patient does have significant uremia, resolved -Septic encephalopathy, resolved Status: Acute (17) Rhabdomyolysis: -Resolved -Etiology of rhabdomyolysis is uncertain, patient has been immobile, in bed, been laying on his back, area vertebral osteomyelitis as a possible etiology -Certainly compartment syndrome could be an etiology, but unlikely - CT of his pelvis did show severe left hip osteoarthritis, no significant evidence of compartment syndrome Status: Acute (18) Hyperuricemia: Status: Acute (19) Transaminitis: Improving Status: Acute (20) Ischemic hepatitis: -LFTs have stabilized -Acute hepatitis panel negative, HIV panel negative -Tylenol level negative -LOUIE, CMV, VZV, EBV pending, drug screen pending -CT scan of the abdomen pelvis with contrast liver unremarkable, gallbladder unremarkable, pancreas unremarkable, no biliary ductal dilatation -Right upper quadrant ultrasound shows hepatomegaly with diffuse fatty infiltration -Patient does have hypotensive episodes during dialysis, -Ischemic hepatitis likely secondary to sepsis, and hypotensive episodes during dialysis Plan: -Goal is to minimize hypotension -Continue to trend LFTs Status: Acute (21) Depression: -Continue Prozac -I have consulted psychiatry Status: Acute (22) Generalized weakness: -I did discuss the case with rheumatology, to evaluate for possible polymyalgia rheumatica, polymyositis, however they feel it is fairly unlikely as patient's symptoms are much more diffuse rather than focal, not concentrating on particular muscle groups -Patient is willing to participate in physical therapy Status: Acute (23) Anemia: -Hemoglobin stabilized, no overt signs of bleeding -Add Protonix 40 twice daily -Likely secondary to renal failure, possibly Zyvox -We will continue to monitor Status: Acute (24) Gout flare: -Resolved -Given patient's persistently elevated leukocytosis, and elevated uric acids, complaints of generalized pain, and started on a prednisone high dose for gouty flare -His pain has improved to some degree, leukocytosis improved uric acid levels are coming down -Prednisone discontinued -We will hold off on allopurinol Status: Acute (25) Hypertensive urgency: -Clonidine 0.2 twice daily -Hydralazine 25 mg 3 times daily -Norvasc 10 mg daily -Metoprolol 50 twice daily -Labetalol as needed -I am trying my best to avoid nephrotoxic antihypertensive, given patient's acute renal failure history Status: Acute Additional A&P Information Dvt ppx: Heparin Patient is a DNR/DNI Dispo: Pending on patient's physical therapy progress, either home or care home, change out bariatric bed Plan for today, continue physical therapy, discharge to SNF or home health care Attestations Medical Necessity Statement*: Patient requires hospitalization vertebral osteomyelitis, acute renal failure, ischemic hepatitis. Coding Level of Care Code Acute [employer]visor [employer] [facility] Diagnoses Vertebral osteomyelitis M46.20 Acute renal failure N17.9 RLL pneumonia J18.9 Hypertension I10 Diastolic CHF I50.30 Gout M10.9 Bilateral lower extremity edema R60.0 Morbid obesity with BMI of 60.0-69.9, adult E66.01; Z68.44 Difficulty in walking R26.2 Bilateral primary osteoarthritis of hip M16.0 HLD (hyperlipidemia) E78.5 Unable to ambulate R26.2 Intractable pain R52 Sepsis A41.9 DRESS syndrome D72.12; T50.905A Encephalopathy G93.40 Rhabdomyolysis M62.82 Hyperuricemia E79.0 Transaminitis R74.01 Ischemic hepatitis K75.9 Depression F32.9 Generalized weakness R53.1 Anemia D64.9 Gout flare M10.9 Hypertensive urgency I16.0
[2020-09-05] MEDS: sodium chloride 0.9% 1,000 ML 75 ML IV (12:41)
[2020-09-05] MEDS: HYDROcodone-acetaminophen 7.5-325 mg Tablet 1 TAB PO (15:24)
[2020-09-05 17:02] LABS: Glucose Point of Care 117 mg/dL (70-110)
[2020-09-05 21:33] LABS: Glucose Point of Care 99 mg/dL (70-110)
[2020-09-06] VITALS (11 sets, daily range): BP systolic 111–130; BP diastolic 61–77; PULSE 55–84; RESP 17–18; TEMP 36.4–36.8; O2SAT 98–99
[2020-09-06] MEDS: sodium chloride 0.9% 1,000 ML 75 ML IV ×2 (02:22→15:30)
[2020-09-06 05:11] LABS: Basophils % 0.4 %; Eosinophils # 0.1 10^3/uL (0.0-0.8); Eosinophils % 2.2 %; Hematocrit 29.8 % (42.0-52.0); Hemoglobin 9.1 g/dL (11.7-16.6); Lymphocytes # 1.3 10^3/uL (0.8-4.8); Lymphocytes % 23.2 %; Mean Corpuscular HGB Conc 30.5 g/dL (30.0-36.0); Mean Corpuscular Hemoglobin 27.9 pg (28.0-34.0); Mean Corpuscular Volume 91.4 fL (80-94); Monocytes # 0.8 10^3/uL (0.2-0.9); Monocytes % 13.9 %; Neutrophils # 3.23 10^3/uL (1.8-7.7); Neutrophils % 58.5 %; Nucleated Red Blood Cells % 0 %; Platelet Count 147 10^3/cmm (130-400); Red Blood Count 3.26 10^6/uL (4.1-5.3); Red Cell Distribution Width 17.4 % (12.1-15.1); White Blood Count 5.5 10^3/uL (4.0-10.0)
[2020-09-06] MEDS: heparin 5,000 unit/mL INJ 1 mL 5000 UNIT SUBCUT ×2 (05:55→17:43)
[2020-09-06] MEDS: linezolid 600 mg Tablet PO ×2 (05:56→17:45)
[2020-09-06] MEDS: sucralfate 1 gm Tablet PO ×4 (05:59→20:45)
[2020-09-06 06:39] LABS: Alanine Aminotransferase 407 U/L (0-41); Albumin Level 2.8 g/dL (3.5-5.2); Alkaline Phosphatase 307 IU/L (40-130); Aspartate Amino Transferase 219 U/L (0-40); Blood Urea Nitrogen 25 mg/dL (8-23); Carbon Dioxide 21 mmol/L (22-29); Chloride 100 mmol/L (98-107); Globulin 2.4 g/dL (1.3-4.6); Glucose 97 mg/dL (65-115); Osmolality Calculated 280 mOsm/kg (285-295); Phosphorus 2.4 mg/dL (2.5-4.5); Sodium 133 mmol/L (136-145); Total Bilirubin 0.7 mg/dL (0.15-1.2); Total Protein 5.2 g/dL (6.6-8.7)
[2020-09-06 06:45] LABS: Calcium 8.7 mg/dL (8.5-10.5); Magnesium 1.7 mg/dL (1.7-2.3)
[2020-09-06 07:09] LABS: Glucose Point of Care 96 mg/dL (70-110)
[2020-09-06 07:09] LABS: Glucose Point of Care 189 mg/dL (70-110)
[2020-09-06] MEDS: ciprofloxacin 500 mg Tablet 250 MG PO (08:17)
[2020-09-06] MEDS: hyDRALAzine 25 mg Tablet PO ×4 (08:17→20:44)
[2020-09-06] MEDS: pantoprazole DR 40 mg Tablet PO ×2 (08:17→20:44)
[2020-09-06] MEDS: cloNIDine 0.1 mg Tablet 0.2 MG PO ×2 (08:17→17:48)
[2020-09-06] MEDS: amlodipine 10 mg Tablet PO (08:17)
[2020-09-06] MEDS: docusate sodium 100 mg Capsule PO ×2 (08:18→17:45)
[2020-09-06] MEDS: fluconazole 100 mg Tablet 200 MG PO (08:18)
[2020-09-06] MEDS: metoprolol tartrate 50 mg Tablet PO ×2 (08:18→21:00)
[2020-09-06] MEDS: nystatin powder 15 gm Btl 1 APPLIC TOPICAL ×2 (08:18→17:55)
[2020-09-06] MEDS: fluoxetine 20 mg Capsule PO (08:18)
[2020-09-06] MEDS: HYDROcodone-acetaminophen 7.5-325 mg Tablet 1 TAB PO ×2 (08:22→17:49)
--- NOTE | 2020-09-06 10:06 | ECG_ITS ---
[facility] Test Date: 2020-09-06 Pat Name: Ceferino Rodarte Department: Room: 264 Gender: Male [employer]: : 1955 Requested By: Mian Shi Order Number: [id number] Lemon MD: Nathalia Rodriguez M.D. Measurements Intervals [place] Rate: 55 P: 75 AL: 183 QRS: 17 QRSD: 100 T: 29 QT: 442 QTc: 424 Interpretive Statements SINUS BRADYCARDIA Compared to ECG 08/22/2020 01:38:33 Sinus rhythm no longer present Electronically Signed On 09-06-2020 20:22:45 [employer] by Nathalia Rodriguez M.D. [email or web address]
--- NOTE | 2020-09-06 11:17 | PC.SOCIAL ---
*IMM UPDATE* Called and gave IMM to pt's , Arabella due to pt being asleep. Understood. 09/06/20 @ 11:16am
[2020-09-06 11:36] LABS: Glucose Point of Care 101 mg/dL (70-110)
[2020-09-06 13:37] LABS: SARS Covid-2 Antigen Negative (Negative)
[2020-09-06 15:03] LABS: Coronavirus Test Green County Not Detected
--- NOTE | 2020-09-06 16:32 | PC.SOCIAL ---
IM follow up explained initialed with copy provided to patient no questions voiced.
[2020-09-06 17:19] LABS: Glucose Point of Care 101 mg/dL (70-110)
--- NOTE | 2020-09-06 21:16 | PM.PN ---
Subjective Subjective: Interval history: No acute event overnight.Vitals and labs have been reviewed. Medications: Reviewed: Yes Medication Review Details: Current Medications Acetaminophen (Acetaminophen 325 Mg Tablet) 650 mg PO Q6H PRN PRN Reason: MILD PAIN Last Admin: 08/24/20 12:29 Dose: 650 mg Documented by: Hydrocodone Bitart/Acetaminophen (Hydrocodone-Acetaminophen 7.5-325 Mg Tablet) 1 tab PO Q4H PRN PRN Reason: MODERATE PAIN Last Admin: 08/28/20 21:48 Dose: 1 tab Documented by: Amlodipine Besylate (Amlodipine 5 Mg Tablet) 5 mg PO DAILY PENDING SALE TO [facility] Last Admin: 08/29/20 09:07 Dose: 5 mg Documented by: Bisacodyl (Bisacodyl 5 Mg Tablet) 10 mg PO DAILY PRN PRN Reason: CONSTIPATION Ciprofloxacin HCl (Ciprofloxacin 500 Mg Tablet) 250 mg PO DAILY PENDING SALE TO [facility]; Protocol Last Admin: 08/29/20 09:07 Dose: 250 mg Documented by: Dextrose (Dextrose 50% Syringe 50 Ml) 25 ml IVP ONCE PRN; Protocol PRN Reason: hypoglycemia protocol Dextrose (Dextrose 50% Syringe 50 Ml) 50 ml IVP PRN PRN; Protocol PRN Reason: hypoglycemia protocol Dextrose (Dextrose 50% Syringe 50 Ml) 25 ml IVP ONCE PRN; Protocol PRN Reason: hypoglycemia protocol Dextrose (Dextrose 50% Syringe 50 Ml) 50 ml IVP PRN PRN; Protocol PRN Reason: hypoglycemia protocol Docusate Sodium (Docusate Sodium 100 Mg Capsule) 100 mg PO BID PENDING SALE TO [facility] Last Admin: 08/29/20 09:07 Dose: 100 mg Documented by: Fluconazole (Fluconazole 100 Mg Tablet) 200 mg PO DAILY PENDING SALE TO [facility] Last Admin: 08/29/20 09:06 Dose: 200 mg Documented by: Fluoxetine HCl (Fluoxetine 20 Mg Capsule) 20 mg PO DAILY PENDING SALE TO [facility] Last Admin: 08/29/20 09:07 Dose: 20 mg Documented by: Glucagon (Glucagon 1 Mg/Ml Inj 1 Ml) 1 mg IM ONCE PRN; Protocol PRN Reason: Adult Acute Hypoglycemia Prot. Glucagon (Glucagon 1 Mg/Ml Inj 1 Ml) 1 mg IM ONCE PRN; Protocol PRN Reason: Adult Acute Hypoglycemia Prot. Haloperidol Lactate (Haloperidol Inj 5 Mg/Ml Inj 1 Ml) 1 mg IM Q4H PRN PRN Reason: AGITATION Heparin Sodium (Beef Lung) (Heparin 5,000 Unit/Ml Inj 1 Ml) 5,000 unit SUBCUT Q12H INA Last Admin: 08/29/20 05:54 Dose: 5,000 unit Documented by: Dextrose (D5w) 500 mls @ 100 mls/hr IV ONCE PRN; Protocol PRN Reason: Adult Acute Hypoglycemia Prot Dextrose (D5w) 500 mls @ 100 mls/hr IV ONCE PRN; Protocol PRN Reason: Adult Acute Hypoglycemia Prot Albumin Human (Albumin) 12.5 gm in 50 mls @ 60 mls/hr IV PRN PRN PRN Reason: Hypotension and/or symptomatic Last Infusion: 08/15/20 18:09 Dose: Infused Documented by: Albumin Human (Albumin) 12.5 gm in 50 mls @ 60 mls/hr IV PRN PRN PRN Reason: Hypotension and/or symptomatic Insulin Aspart (Insulin Aspart 100 Unit/1 Ml) 0 unit SUBCUT TIDWM PENDING SALE TO [facility]; Protocol Last Admin: 08/29/20 09:07 Dose: Not Given Documented by: Linezolid (Linezolid 600 Mg Tablet) 600 mg PO Q12H PENDING SALE TO [facility]; Protocol Last Admin: 08/29/20 05:54 Dose: 600 mg Documented by: Nystatin (Nystatin Powder 15 Gm Btl) 1 applic TOPICAL BID PENDING SALE TO [facility] Last Admin: 08/29/20 09:07 Dose: 1 applic Documented by: Ondansetron HCl (Ondansetron 2 Mg/Ml Sdv 2 Ml) 4 mg IVP Q8H PRN PRN Reason: vomiting, or N/V if npo Pantoprazole Sodium (Pantoprazole Dr 40 Mg Tablet) 40 mg PO Q12H PENDING SALE TO [facility] Last Admin: 08/29/20 09:07 Dose: 40 mg Documented by: Polyethylene Glycol (Polyethylene Glycol 3350 Pkt 17 Gm) 17 gm PO DAILY INA Last Admin: 08/29/20 09:07 Dose: 17 gm Documented by: Prednisone (Prednisone 20 Mg Tablet) 40 mg PO DAILY PENDING SALE TO [facility] Last Admin: 08/29/20 09:06 Dose: 40 mg Documented by: Sevelamer Carbonate (Sevelamer 800 Mg Tablet) 1,600 mg PO TIDWM PENDING SALE TO [facility] Last Admin: 08/29/20 09:06 Dose: 1,600 mg Documented by: Vitals/I&O/Wt Last Vital Signs Temp 97.8 F 09/06/20 14:53 Pulse 62 09/06/20 14:53 Resp 18 09/06/20 14:53 BP 117/70 09/06/20 17:48 Pulse Ox 98 09/06/20 14:53 09/06/20 09/06/20 09/06/20 06:59 14:59 22:59 Intake Total 1000 / 2600 100 / 100 985 / 1085 Output Total 200 / 700 Balance 800 / 1900 100 / 100 985 / 1085 Physical Exam Const: COMMON NORMALS: patient oriented x3 HENMT: COMMON NORMALS: normocephalic and atraumatic HEAD & SCALP: normocephalic and atraumatic Chest: CHEST: Yes Symmetrical chest wall rise Resp: COMMON NORMALS: clear to auscultation bilaterally EFFORT & INSPECTION: Yes symmetric chest movement AUSCULTATION: clear to auscultation bilaterally Cardio: COMMON NORMALS: regular rate, regular rhythm, S1 normal heart sound present, S2 normal heart sound present, No gallops present (Cardio), No murmurs present (Cardio), No rub (Cardio) and Peripheral pulses 2+ throughout RATE: regular rate RHYTHM: regular rhythm HEART SOUNDS: S1 normal heart sound present and S2 normal heart sound present PERIPHERAL PULSES: Peripheral pulses 2+ throughout GI: COMMON NORMALS: Normal to inspection, nondistended, normoactive bowel sounds present, Soft to palpation, non-tender, No hepatosplenomegaly present and no masses AUSCULTATION: Yes normoactive bowel sounds PALPATION: Yes Soft to palpation and Yes No hepatosplenomegaly present RECTAL EXAM: Yes deferred Extremity: COMMON NORMALS: no clubbing, cyanosis or edema and no pedal edema Neuro: COMMON NORMALS: patient oriented x3 Urinary Catheter Management^: Flowers: Cath Placed During This Visit: yes, but has since been removed by the nurse Reason for Continuing Indwelling Catheter: Decision to DC Catheter Urinary Catheter Date of Insertion: 08/05/20 Urinary Catheter Time of Insertion: 15:00 Date Urinary Catheter Removed: 08/29/20 Time Urinary Catheter Discontinued: 18:35 Data : 09/06/20 04:46 09/06/20 04:46 A&P Assessment and plan (1) Vertebral osteomyelitis: -With sepsis, resolved -CT of abdomen pelvis shows:Lytic changes in the L3 and L4 vertebral bodies without adjacent inflammation. Indolent vertebral body osteomyelitis, metastatic disease or degenerative cystic changes in the vertebral bodies. -CT-of the cervical spine does not show any significant osteomyelitis -I went over CT scan findings with Dr. Cuellar, she feels that changes in vertebral bodies are likely related to osteomyelitis -Unfortunately patient cannot have a MRI given his body habitus -Unfortunately cannot perform a tagged white blood cell scan as he cannot fit in the machine -Unfortunate patient cannot have a CT-guided biopsy, due to his body habitus, difficulty accessing site -White blood cell coun WNL, ESR greater than 112 (Likely related to body habitus) -Blood pressure normotensive, afebrile, saturating in the high 90s on room air -Lactic acid within normal limits -Inflammatory markers improving -Right-sided tunneled dialysis catheter removed -All blood cultures have been unremarkable -UA shows yeast species, on fluconazole Plan: -Continue neurochecks -Continue bariatric bed -Needs to get up out of bed into bariatric chair, agrees to physical therapy -After speaking with infectious disease patient has been transitioned to p.o. Zyvox and Cipro for at least 6 weeks -Currently having some mild anemia hemoglobin 10.3, thrombocytopenia of 144, will have to monitor closely for bone marrow suppression associated with Zyvox -Fluconazole for yeast UTI -Monitor clinical progress -DNR/DNI -Heparin for DVT prophylaxis -Patient was updated -Plans for shelter versus home health care Status: Acute (2) Acute renal failure: -Etiology multifactorial's rhabdomyolysis and/or sepsis and or drug reaction and/or dress syndrome -Has not received any NSAIDs, is on lisinopril hydrochlorthiazide which has been held -Was on Lasix therapy -He does have a allergy to cephalexin, allergy unknown, patient is unsure what the allergy is, could he possibly have dress syndrome, however does not have significant eosinophilia on CBC -We will hold allopurinol as associate with dress syndrome,, Denis Diogo syndrome -CPK and uric acid are trending down -CT scan of the abdomen pelvis does not show any significant obstructive uropathy, or kidney stone, but it was a difficult study -Good urine output, creatinine 1.3 Plan: -Right tunneled dialysis catheter removed -Nephrology on consult -Urine studies no eosinophils seen -Peripheral smear toxic granulations, no eosinophil -Urine output has improved, -Nephrology consult -A bit dehydrated today, creatinine 1.3, sodium 133, will give IV fluids Status: Acute (3) RLL pneumonia: Initially on chest x-ray patient was noted to have right lower lobe pneumonia for which she received treatment with ceftriaxone and azithromycin. Currently on Zyvox and Cipro CT chest negative for consolidative process, afebrile, on room air Status: Acute (4) Hypertension: -Hold Norvasc to 10 mg daily -Discontinue lisinopril given creatinine increase -This is currently well controlled Status: Inactive (5) Diastolic CHF: -Cardiac echocardiogram shows EF of 55%, no regional wall motion abnormalities, poor quality study -Flowers catheter removed Status: Acute (6) Gout: Allopurinol on hold for possible dress syndrome Given his generalized pain complaints, and elevated uric acid, he was started on prednisone 80 mg daily, which has been stopped Status: Acute (7) Bilateral lower extremity edema: Minimal today Status: Acute (8) Morbid obesity with BMI of 60.0-69.9, adult: Needs to follow-up with bariatric clinic, needs to be motivated to lose weight Status: Acute (9) Difficulty in walking: PT OT, however states unable to participate due to weakness Status: Acute (10) Bilateral primary osteoarthritis of hip: PT OT, pain control Status: Acute (11) HLD (hyperlipidemia): Continue simvastatin Status: Acute (12) Unable to ambulate: PT OT Status: Acute (13) Intractable pain: -Has some calf pain bilaterally, lower extremity Doppler negative for DVT Status: Acute (14) Sepsis: Status: Acute (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 -From allopurinol versus ceftriaxone -With transaminitis, acute renal failure, multiorgan dysfunction, I cannot see a rash -Finished prednisone Status: Acute (16) Encephalopathy: Currently alert oriented x3 -ABG did not show any significant hypoxia or hypercarbia -Continue BiPAP overnight -Neurochecks -Patient does have significant uremia, resolved -Septic encephalopathy, resolved Status: Acute (17) Rhabdomyolysis: -Resolved -Etiology of rhabdomyolysis is uncertain, patient has been immobile, in bed, been laying on his back, area vertebral osteomyelitis as a possible etiology -Certainly compartment syndrome could be an etiology, but unlikely - CT of his pelvis did show severe left hip osteoarthritis, no significant evidence of compartment syndrome Status: Acute (18) Hyperuricemia: Status: Acute (19) Transaminitis: Improving Status: Acute (20) Ischemic hepatitis: -LFTs have stabilized -Acute hepatitis panel negative, HIV panel negative -Tylenol level negative -LOUIE, CMV, VZV, EBV pending, drug screen pending -CT scan of the abdomen pelvis with contrast liver unremarkable, gallbladder unremarkable, pancreas unremarkable, no biliary ductal dilatation -Right upper quadrant ultrasound shows hepatomegaly with diffuse fatty infiltration -Patient does have hypotensive episodes during dialysis, -Ischemic hepatitis likely secondary to sepsis, and hypotensive episodes during dialysis Plan: -Goal is to minimize hypotension -Continue to trend LFTs Status: Acute (21) Depression: -Continue Prozac -I have consulted psychiatry Status: Acute (22) Generalized weakness: -I did discuss the case with rheumatology, to evaluate for possible polymyalgia rheumatica, polymyositis, however they feel it is fairly unlikely as patient's symptoms are much more diffuse rather than focal, not concentrating on particular muscle groups -Patient is willing to participate in physical therapy Status: Acute (23) Anemia: -Hemoglobin stabilized, no overt signs of bleeding -Add Protonix 40 twice daily -Likely secondary to renal failure, possibly Zyvox -We will continue to monitor Status: Acute (24) Gout flare: -Resolved -Given patient's persistently elevated leukocytosis, and elevated uric acids, complaints of generalized pain, and started on a prednisone high dose for gouty flare -His pain has improved to some degree, leukocytosis improved uric acid levels are coming down -Prednisone discontinued -We will hold off on allopurinol Status: Acute (25) Hypertensive urgency: -Clonidine 0.2 twice daily -Hydralazine 25 mg 3 times daily -Norvasc 10 mg daily -Metoprolol 50 twice daily -Labetalol as needed -I am trying my best to avoid nephrotoxic antihypertensive, given patient's acute renal failure history Status: Acute Additional A&P Information Dvt ppx: Heparin Patient is a DNR/DNI Dispo: Pending on patient's physical therapy progress, either home or shelter, change out bariatric bed Plan for today, continue physical therapy, discharge to SNF or home health care Attestations Medical Necessity Statement*: Plan for today, continue physical therapy, discharge to SNF Coding Level of Care Code 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 [employer] Diagnoses Vertebral osteomyelitis M46.20 Acute renal failure N17.9 RLL pneumonia J18.9 Hypertension I10 Diastolic CHF I50.30 Gout M10.9 Bilateral lower extremity edema R60.0 Morbid obesity with BMI of 60.0-69.9, adult E66.01; Z68.44 Difficulty in walking R26.2 Bilateral primary osteoarthritis of hip M16.0 HLD (hyperlipidemia) E78.5 Unable to ambulate R26.2 Intractable pain R52 Sepsis A41.9 DRESS syndrome D72.12; T50.905A Encephalopathy G93.40 Rhabdomyolysis M62.82 Hyperuricemia E79.0 Transaminitis R74.01 Ischemic hepatitis K75.9 Depression F32.9 Generalized weakness R53.1 Anemia D64.9 Gout flare M10.9 Hypertensive urgency I16.0
[2020-09-07 02:04] VITALS: BP 114/63; PULSE 62; RESP 18; TEMP 36.6; O2SAT 96
[2020-09-07 04:33] VITALS: BP 127/66; PULSE 69; RESP 18; TEMP 36.4; O2SAT 97
[2020-09-07] MEDS: sodium chloride 0.9% 1,000 ML 75 ML IV (04:57)
[2020-09-07] MEDS: linezolid 600 mg Tablet PO (05:00)
[2020-09-07] MEDS: heparin 5,000 unit/mL INJ 1 mL 5000 UNIT SUBCUT (05:00)
[2020-09-07 06:00] VITALS: PULSE 72
[2020-09-07] MEDS: sucralfate 1 gm Tablet PO (06:32)
[2020-09-07 07:14] LABS: Glucose Point of Care 90 mg/dL (70-110)
[2020-09-07 08:00] VITALS: BP 159/79; PULSE 74; RESP 18; TEMP 36.6; O2SAT 96
[2020-09-07] MEDS: docusate sodium 100 mg Capsule PO (08:35)
[2020-09-07] MEDS: fluconazole 100 mg Tablet 200 MG PO (08:35)
[2020-09-07] MEDS: hyDRALAzine 25 mg Tablet PO (08:36)
[2020-09-07] MEDS: metoprolol tartrate 50 mg Tablet PO (08:36)
[2020-09-07] MEDS: cloNIDine 0.1 mg Tablet 0.2 MG PO (08:36)
[2020-09-07] MEDS: amlodipine 10 mg Tablet PO (08:36)
[2020-09-07] MEDS: pantoprazole DR 40 mg Tablet PO (08:36)
[2020-09-07] MEDS: ciprofloxacin 500 mg Tablet 250 MG PO (08:37)
[2020-09-07] MEDS: fluoxetine 20 mg Capsule PO (08:37)
--- NOTE | 2020-09-07 10:44 | PM.DCS ---
Discharge Providers Date of Admission: 08/04/20 14:56 Date of Discharge: September 07, 2020 Attending Provider at Admission: Tremaine Ferrari MD Attending Provider at Discharge: Mian Shi MD Diagnoses at Discharge Discharge Diagnosis (1) Vertebral osteomyelitis: Status: Acute (2) Acute renal failure: Status: Resolved (3) RLL pneumonia: Status: Resolved (4) Hypertension: Status: Chronic (5) Diastolic CHF: Status: Chronic (6) Gout: Status: Chronic (7) Morbid obesity with BMI of 60.0-69.9, adult: Status: Chronic (8) Bilateral primary osteoarthritis of hip: Status: Chronic (9) HLD (hyperlipidemia): Status: Chronic (10) Unable to ambulate: Status: Chronic (11) Intractable pain: Status: Chronic (12) Sepsis: Status: Resolved (13) DRESS syndrome: Status: Resolved (14) Encephalopathy: Status: Resolved (15) Rhabdomyolysis: Status: Resolved (16) Transaminitis: Status: Resolved (17) Ischemic hepatitis: Status: Resolved (18) Depression: Status: Chronic (19) Anemia: Status: Chronic (20) Gout flare: Status: Resolved Reason for Visit Reason for Visit: swelling and pain in arms and legs Hospital Course Hospital Course Ceferino Duran is a 65 year old male with a past medical history of diastolic CHF, bilateral lower extremity edema, hypertension, hyperlipidemia, gout, morbid obesity, chronic venous insufficiency, bilateral hip osteoarthritis, who presented to [facility] due to complaints of difficulty ambulating, bilateral lower extremity edema, weakness, left shoulder pain. He uses crutches and wheelchair to ambulate. he was diagnosed with diastolic CHF and appropriately diuresed with improvement in Le edema. due to suspicion for RLL pneumonia he received 5 days of empiric abx with cefttriaxone and azithromycin. ASt/ALT noted to mildly elevated. likely contributed by abx use. Hospice evaluation was sought per patient request but unfortunately his hospital course was complex and complicated during this hospital stay he was managed for sepsis 2/2 Vertebral osteomyelitis: CT of abdomen pelvis shows:Lytic changes in the L3 and L4 vertebral bodies without adjacent inflammation. Indolent vertebral body osteomyelitis, metastatic disease or degenerative cystic changes in the vertebral bodies. CT-of the cervical spine does not show any significant osteomyelitis. CT scan findings was reviewed with Dr. Cuellar, she feels that changes in vertebral bodies are likely related to osteomyelitis.Unfortunately patient cannot have a MRI given his body habitus Unfortunately cannot perform a tagged white blood cell scan as he cannot fit in the machine. Unfortunate patient cannot have a CT-guided biopsy, due to his body habitus, difficulty accessing site. ESR greater than 112.He was discharged on zyvox and ciprofloxacin to complete 6 weeks course as per I.D recommendation and he will follow as outpatient in 1 week. He will continue to monitor CBC,CMP, EKG. Baseline EKG was done was Qtc monitoring ,given the patient is on ciprofloxacin.He will continue with CBC for monitoring of myelosuppresive effect Zyvox. He went in to [facility] also during the hospital stay Etiology multifactorial's rhabdomyolysis and/or sepsis DRESS.He does have a allergy to cephalexin, allergy unknown, patient is unsure what the allergy is, could he possibly have dress syndrome, however does not have significant eosinophilia on CBC. 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 For RLL pneumonia:Initially on chest x-ray patient was noted to have right lower lobe pneumonia for which she received treatment with ceftriaxone and azithromycin and later on Zyvox and Cipro.He was laso managed for possible atypical DRESS likely culprit thout at that time was allopurinol as he was having ransaminitis, acute renal failure, multiorgan dysfunction, but no rash he finished prednisone course. Rhabdomyolysis:Etiology of rhabdomyolysis is uncertain, patient has been immobile, in bed, been laying on his back, area vertebral osteomyelitis as a possible etiology.It was resolved at the time of discharge. CT of his pelvis did show severe left hip osteoarthritis, no significant evidence of compartment syndrome Ischemic hepatitis: has resolved . LFTs have stabilized. Acute hepatitis panel negative, HIV panel negative. Tylenol level negative.He was also managed for gout flare with high dose prednisone.Patient is being discharged in stable condition [facility]. Physical Exam Narrative: EXAM NARRATIVE: COMMON NORMALS: patient oriented x3 [facility] COMMON NORMALS: normocephalic and atraumatic HEAD & SCALP: normocephalic and atraumatic Chest CHEST: Yes Symmetrical chest wall rise Resp COMMON NORMALS: clear to auscultation bilaterally EFFORT & INSPECTION: Yes symmetric chest movement AUSCULTATION: clear to auscultation bilaterally Cardio COMMON NORMALS: regular rate, regular rhythm, S1 normal heart sound present, S2 normal heart sound present, No gallops present (Cardio), No murmurs present (Cardio), No rub (Cardio) and Peripheral pulses 2+ throughout RATE: regular rate RHYTHM: regular rhythm HEART SOUNDS: S1 normal heart sound present and S2 normal heart sound present PERIPHERAL PULSES: Peripheral pulses 2+ throughout GI COMMON NORMALS: Normal to inspection, nondistended, normoactive bowel sounds present, Soft to palpation, non-tender, No hepatosplenomegaly present and no masses AUSCULTATION: Yes normoactive bowel sounds PALPATION: Yes Soft to palpation and Yes No hepatosplenomegaly present RECTAL EXAM: Yes deferred Extremity COMMON NORMALS: no clubbing, cyanosis or edema and no pedal edema Urinary Catheter Management^: Flowesr: Cath Placed During This Visit: yes, but has since been removed by the nurse Reason for Continuing Indwelling Catheter: Decision to DC Catheter Urinary Catheter Date of Insertion: 08/05/20 Urinary Catheter Time of Insertion: 15:00 Date Urinary Catheter Removed: 08/29/20 Time Urinary Catheter Discontinued: 18:35 Discharge Data Data Completed and Pending: Completed Studies During Hospitalization Category Date Time Status CT abdomen pelvis w con* [id number] Stat Cat Scan 08/16/20 13:[address] cervical spin wo con* [id number] Rout ine Cat Scan 08/12/20 15:[address] chest abd pel wo con Routine Cat Scan 08/10/20 10:[address] hip LT wo con* [id number] Routine Cat Scan 08/12/20 15:[address] hip RT wo con* [id number] Routine Cat Scan 08/12/20 15:50 Completed CXRP [XR chest 1V portable [id number]] S tat Exams 08/11/20 11:05 Completed XR chest 1V dilia ble [id number] Routine Exams 08/22/20 13:41 Completed XR chest 1V dilia ble 27390 Routine Exams 08/06/20 09:12 Completed XR chest 1V dilia ble 69007 Routine Exams 08/12/20 07:00 Completed XR chest 1V dilia ble 93153 Routine Exams 08/15/20 07:00 Completed XR shoulder RT mi n 2V* [id number] Stat Exams 08/04/20 10:47 Completed CV echo wo/w cont rast [id number] Routine Ultrasound 08/05/20 16:35 [place] [id number] Routin e Ultrasound 08/07/20 09:39 Completed US abdomen limite d 00596 Routine Ultrasound 08/15/20 09:08 Completed US renal BI* [id number] 0 Stat Ultrasound 08/11/20 14:32 Completed US/CV paperwork R outine Ultrasound 08/05/20 Completed Pending at discharge Category Date Time Status MRSA by PCR Stat Lab 08/10/20 14:40 Received Labs from last 24 hours 09/07/20 09/06/20 09/06/20 06:18 17:03 13:00 POC Glucose 90 101 Nasal/Oral COVID-1 9 PCR SARS-CoV-2 Ag (Rap id) Negative 09/06/20 09/03/20 10:44 09:18 POC Glucose 101 Nasal/Oral COVID-1 9 PCR Not detected SARS-CoV-2 Ag (Rap id) Vitals: Last Vital Signs Temp 97.8 F 09/07/20 08:00 Pulse 74 09/07/20 08:00 Resp 18 09/07/20 08:00 BP 159/79 09/07/20 08:00 Pulse Ox 96 09/07/20 08:00 Discharge Plan Discharge Patient Disposition: Home Condition: Stable Prescriptions: New amlodipine 5 mg Tablet 10 mg PO DAILY@08 30 Days RF: 0 famotidine 20 mg Tablet 20 mg PO BID 30 Days Qty: 60 RF: 0 gabapentin 300 mg Capsule 300 mg PO BID 30 Days Qty: 60 RF: 0 ciprofloxacin HCl 500 mg tablet 500 mg PO BID Qty: 42 RF: 0 Zyvox 600 mg tablet 600 mg PO BID Qty: 42 RF: 0 Continued simvastatin [Zocor] 10 mg tablet 10 mg PO DAILY@20 RF: 0 furosemide [Lasix] 40 mg tablet 40 mg PO DAILY@13 RF: 0 hydrocodone-acetaminophen [Quinton] 5-325 mg tablet 1 tab PO Q6H PRN (Reason: Pain) RF: 0 cyclobenzaprine 10 mg tablet 10 mg PO DAILY@08 RF: 0 lisinopril-hydrochlorothiazide 20-12.5 mg Tablet 2 tab PO DAILY@08 RF: 0 potassium chloride 10 mEq Tablet Extended Release 10 meq PO DAILY@20 RF: 0 Changed amlodipine 5 mg tablet 10 mg PO DAILY@08 Qty: 0 RF: 0 Discontinued naproxen 500 mg tablet 500 mg PO BID@08,20 RF: 0 allopurinol 100 mg Tablet 200 mg PO DAILY@20 RF: 0 Discharge Orders: Discharge Order (Routine); Ordered 09/07/20 Ordered By: Mian Shi Other Ambulatory Orders: Complete Blood Count w/Auto (Routine) Timeframe: 1 Week Location: Determined by Patient Ordered By: Mian Shi Comprehensive Metabolic Panel (Routine) Timeframe: 1 Week Facility: [facility] - Location: Lab - Main Lab Ordered By: Maite Ayala DME: Hospital Bed (Order) Location: None Selected Ordered By: Tremaine Ferrari Referrals: primary care,provider [Other] - 1 week Maite Ayala M.D. [Other] - 09/20/20 2:40 pm (Please monitor labs weekly CBC, CMP while on Cipro and Zyvoxx. Appointment can be arranged by televisit if needed with Dr Ayala [facility]. Provider at facility can discuss by phone if needed as well. Please call number listed to arrange televisit. on SEP 20 AT 2:40 PM) Discharge Diet: Usual diet Discharge Activity: Resume usual activity Discharge Attestations Time Spent in Discharge Care*: greater than 30 min Specific Discharge Activities: educating patient, educating and/or supporting family/caregiver, discussing with case planner/social workers/dc planners, documenting/other paperwork and evaluating patient/reviewing data Status at Discharge: Cognitive status at discharge: cognitively intact, Behavioral status at discharge: cooperative, Overall status at discharge: patient is back to baseline Quality Metrics Clinical Quality Measures During this hospital stay, did patient experience: None Coding Level of Care Code 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
[2020-09-07 12:00] VITALS: BP 127/75; PULSE 97; RESP 18; TEMP 36.7; O2SAT 94
[2020-09-07] MEDS: HYDROcodone-acetaminophen 7.5-325 mg Tablet 1 TAB PO (12:59)
[2020-09-07 13:26] LABS: Glucose Point of Care 124 mg/dL (70-110)
[2020-09-07 14:42] VITALS: BP 127/75; PULSE 97; RESP 18; TEMP 36.7; O2SAT 94
== END 2020-09-07 13:10 | disposition home or self-care (01) | DRG 291 ==
LOC: ER 15:56 → MEDSURG 20:35
PROVIDERS: Internal Medicine; Internal Medicine Nephrology; Student in an Organized Health Care Education/Training Program; Surgery; Admitting Provider Family Medicine; Emergency Provider Student in an Organized Health Care Education/Training Program; Visit Provider Internal Medicine
PROC: 05JY3ZZ Inspection of Upper Vein, Percutaneous Approach (ICD-10-PCS; principal; 2020-08-14 08:00)
PROC: 0JH63XZ Insertion of Tunneled Vascular Access Device into Chest Subcutaneous Tissue and Fascia, Percutaneous Approach (ICD-10-PCS; principal; 2020-08-19 09:00)
DX: I11.0 Hypertensive heart disease with heart failure (principal); J18.9 Pneumonia, unspecified organism; A41.9 Sepsis, unspecified organism; N17.0 Acute kidney failure with tubular necrosis; K72.00 Acute and subacute hepatic failure without coma; G93.41 Metabolic encephalopathy; Z68.44 Body mass index [BMI] 60.0-69.9, adult; M62.82 Rhabdomyolysis; M46.26 Osteomyelitis of vertebra, lumbar region; E87.2 Acidosis; L51.1 Stevens-Johnson syndrome; I50.33 Acute on chronic diastolic (congestive) heart failure; E78.5 Hyperlipidemia, unspecified; M10.9 Gout, unspecified; E66.01 Morbid (severe) obesity due to excess calories; M16.0 Bilateral primary osteoarthritis of hip; M25.512 Pain in left shoulder; Z66 Do not resuscitate; Z79.891 Long term (current) use of opiate analgesic; I95.9 Hypotension, unspecified; K76.0 Fatty (change of) liver, not elsewhere classified; E83.41 Hypermagnesemia; E87.5 Hyperkalemia; D72.12 Drug rash with eosinophilia and systemic symptoms syndrome; M79.662 Pain in left lower leg; M79.661 Pain in right lower leg; F32.9 Major depressive disorder, single episode, unspecified; F43.25 Adjustment disorder with mixed disturbance of emotions and conduct
CPT/HCPCS: 12345; 36415; 36416; 36600; 51702; 71045; 71250; 72125; 73030; 73700; 74176; 74177; 76000; 76705; 76770; 77001; 80051; 80053; 80061; 80074; 80306; 80307; 80500; 81001; 82140; 82150; 82247; 82248; 82330; 82436; 82550; 82570; 82728; 82784; 82803; 82805; 82962; 82977; 83010; 83516; 83605; 83615; 83690; 83735; 83880; 83883; 83935; 84100; 84133; 84145; 84156; 84300; 84443; 84540; 84550; 85007; 85025; 85362; 85378; 85384; 85610; 85651; 85730; 85999; 86140; 86335; 86403; 86664; 86665; 86706; 86787; 86803; 87040; 87086; 87106; 87340; 87426; 87530; 87635; 87641; 87806; 90935; 93005; 93306; 93970; 94660; 96372; 96375; 97110; 97161; 97165; 97166; 97167; 97530; 97535; 99283; C1750; C1752; C8929; J0330; J0456; J0696; J1644; J1650; J1815; J1940; J2020; J2250; J2270; J2405; J2543; J2704; J2765; J2930; J3010; J3490; J7030; J7050; J7512; P9047; Q3014; Q9967